=== PATIENT | female | born 1975 | race Caucasian/White ===

== ENCOUNTER 2019-04-22 23:36 | Emergency (ER) | payer SELFPAY ==
[2019-04-22 23:43] VITALS: BP 182/98; PULSE 91; RESP 18; TEMP 37.1; O2SAT 99
--- NOTE | 2019-04-22 23:43 | XR_ITS ---
WS: [id number] PORTABLE CHEST HISTORY: Chest Pain COMPARISON: 09/03/2018 Subsegmental opacification in the RIGHT lower lung field. Otherwise lungs are clear. No pleural effus ion or pneumothorax. Cardiac size: Normal. Mediastinum/Aorta: Normal mediastinum. No osseous abnormality seen. XR/XR chest 1V portable [id number] IMPRESSION: RIGHT lower lobe focal atelectasis versus pneumonitis.
--- NOTE | 2019-04-22 23:43 | ECG_ITS ---
Measurements Intervals [place] Rate: 101 P: 48 [place]: 133 QRS: -17 QRSD: 90 T: 29 QT: 344 QTc: 447 SINUS TACHYCARDIA VOLTAGE CRITERIA FOR LVH [MEETS CRITERIA IN ONE OF: R(aVL), S(V1), R(V5), R(V5 (V5/V6)+S(V1)] NONSPECIFIC ST & T-WAVE ABNORMALITY Compared to ECG 07/05/2018 19:11:38 T-wave abnormality now present Sinus rhythm no longer present Myocardial infarct finding no longer present Electronically Signed On 04-23-2019 22:01:32 CHILD AND ADOLESCENT PSYCHOLOGIST by Rani Monique M.D. [id number] f
[2019-04-22 23:49] VITALS: PULSE 97; RESP 18; O2SAT 98
--- NOTE | 2019-04-23 00:25 | ED_ITS ---
HPI - Chest Pain General: Chief Complaint: Chest Pain Stated Complaint: Chest pain Time Seen by Provider: 04/23/19 00:07 Source: patient Mode of arrival: ambulatory Limitations: no limitations History of Present Illness: HPI narrative: Patient reports for the last 2 to 3 days she has had a cough and some chest discomfort. Patient reports that this evening around 830 though she started having more increasing chest discomfort and radiation down her left arm. Patient came in then for further evaluation. Patient denies any previous heart history. Patient does have a history of blood pressure problems. Patient also has a history of anxiety and depression. Review of Systems General: Reports: 10 or more systems reviewed and unremarkable except in HPI and below Card: Reports: chest pain Resp: Reports: non-productive cough PFSH ED PFSH: Statuses (acute, chronic, etc) shown below reflect problem list status as previously entered and may not be historically accurate Medical History (Updated 04/23/19 @ 02:29 by NOA Guadalupe) Chronic post-traumatic stress disorder (Acute) of child (Acute) Generalized anxiety disorder (Acute) Major depressive disorder, recurrent episode, in partial remission with anxious distress (Acute) Weight gain due to medication (Acute) Physical Exam Const: COMMON NORMALS: no apparent distress and oriented x3 GENERAL APPEARANCE: cooperative HENMT: COMMON NORMALS: normocephalic, external ears normal, EAC's normal, TM's normal bilaterally and external nose normal HEAD & SCALP: normal to inspection and normocephalic FACE & SINUS: normal facial exam NOSE: external nose normal GENERAL EAR: hearing not grossly impaired EXTERNAL EAR: Yes external ears normal EXTERNAL AUDITORY CANAL: EAC's normal TYMPANIC MEMBRANE: TM's normal bilaterally MOUTH: oral and palatal mucosa normal THROAT: posterior oropharynx normal Eye: COMMON NORMALS: PERRL and EOMs intact bilaterally PUPIL: Yes PERRL Neck/C-Spine: COMMON NORMALS: full ROM and no lymphadenopathy Lymph: LYMPHATIC: no lymphedema noted Chest: COMMONS NORMALS: inspection of chest normal and palpation of chest n ormal Resp: COMMON NORMALS: normal respiratory effort and clear to auscultation bilaterally AUSCULTATION: clear to auscultation bilaterally Cardio: COMMON NORMALS: regular rate and regular rhythm RATE: regular rate RHYTHM: regular rhythm GI: COMMON NORMALS: normal to inspection, nondistended, normoactive bowel sounds and non-tender : COMMON NORMALS: Yes no CVA tenderness BLADDER/KIDNEY EXAM: Yes no CVA tenderness Back/Pelvis: COMMON NORMALS: no CVA tenderness and thoracic and lumbar spine normal to inspection Extremity: COMMON NORMALS: normal to inspection GENERAL: No edema Neuro: COMMON NORMALS: oriented x3, moves all extremities and no focal motor deficits Psych: COMMON NORMALS: mental status grossly normal and cooperative Skin: COMMON NORMALS: no rashes or lesions noted GENERAL SKIN EXAM: no rashes or lesions noted Course ED course: 1250, patient resting well, request medication for headache and nausea. wjw 0102, patient reports improvement in pain, continues to have some mild chest pressure and headache. first labs show no significant abnormality. wjw Vital Signs: Vital signs: Vital Signs Temperature 98.8 F 04/22/19 23:43 Pulse Rate 108 H 04/23/19 02:15 Respiratory Rate 18 04/23/19 02:23 Blood Pressure 183/114 04/23/19 02:15 Pulse Oximetry 95 04/23/19 02:15 MDM - Chest Pain MDM Narrative: Medical decision making narrative: Patient comes in today for complaints of chest discomfort radiating into her left arm. On exam patient appears well. Respirations are even lungs are clear to auscultation. Skin is warm and dry color is pink. Abdomen soft nontender. Differential diagnosis includes ACS, angina stable, pneumonia, uncontrolled hypertension, anxiety. Troponin was negative at the 2-hour annie. Chest x-ray was normal. Laboratory values otherwise were normal. Patient blood pressure was elevated with some LVH noted on the EKG. Reviewed with patient suspect that poor control or uncontrolled hypertension is leading to patient's chest discomfort. Will start patient on clonidine 0.1 mg twice a day. Patient will follow-up with primary care in 2 days for recheck. Patient reports understanding agreed to plan and need for follow-up. Lab Data: Labs: Lab Results 04/22/19 04/22/19 04/22/19 Range/Units 00:10 00:10 00:10 WBC 10.0 (4.0-10.0) 10^3/ uL RBC 4.67 (4.1-5.3) 10^6/u L Hgb 13.4 (11.5-15.3) g/dL Hct 42.4 (37.0-47.0) % MCV 90.8 (81-99) fL MCH 28.7 (28.0-34.0) pg MCHC 31.6 (30.0-36.0) g/dL RDW 14.3 (12.1-15.1) % Plt Count 255 (130-400) 10^3/c mm MPV 8.8 (7.4-10.4) fL Neut % (Auto) 68.1 % Lymph % (Auto) 13.6 % [place] % (Auto) 5.5 % Eos % (Auto) 11.6 % Baso % (Auto) 1.0 % Neut # (Auto) 6.8 (1.8-7.7) 10^3/u L Lymph # (Auto) 1.4 (0.8-4.8) 10^3/u L [place] # (Auto) 0.6 (0.2-0.9) 10^3/u L Eos # (Auto) 1.2 H (0.0-0.8) 10^3/u L Baso # (Auto) 0.1 (0.0-0.1) 10^3/u L Nucleated RBC % (a uto) 0 % Nucleated RBCs # 0.0 /100WBC PT 13.40 H (10.5-13.3) SECO NDS INR 0.99 (0.8-1.2) APTT 24.3 (23.9-36.7) SECO NDS Sodium 139 (136-145) mmol/L Potassium 3.6 (3.5-5.1) mmol/L Chloride 105 (98-107) mmol/L Carbon Dioxide 18 L (22-29) mmol/L Anion Gap 19.6 H (5-19) BUN 12 (6-20) mg/dL Creatinine 1.1 H (0.5-0.9) mg/dL GFR Calculation 53.7 L (90-130) mL/min Glucose 165 H (74-109) mg/dL Calcium 9.6 (8.6-10.0) mg/Dl Total Bilirubin 0.2 (0.15-1.2) mg/dL AST 15 (0-32) U/L ALT 16 (0-33) U/L Alkaline Phosphata se 93 (35-105) IU/L Troponin T Baselin e (0-10) ng/mL Troponin T 120 Min [place] (0-10) ng/mL Total Protein 6.2 L (6.6-8.7) g/dL Albumin 3.4 L (3.5-5.2) g/dL Globulin 2.8 (1.3-4.6) g/dL Urine Color (Yellow) Urine Appearance (CLEAR) Urine pH (5-7) Ur Specific Gravit y (1.005-1.030) Urine Protein (Negative) Urine Glucose (UA) (Normal) Urine Ketones (Negative) Urine Occult Blood (Negative) Urine Nitrate (Negative) Urine Bilirubin (NEGATIVE) Urine Urobilinogen (Negative) mg/dL Ur Leukocyte Stephanie ase (Negative) 04/22/19 04/23/19 04/23/19 Range/Units 00:10 00:34 01:45 WBC (4.0-10.0) 10^3/ uL RBC (4.1-5.3) 10^6/u L Hgb (11.5-15.3) g/dL Hct (37.0-47.0) % MCV (81-99) fL MCH (28.0-34.0) pg MCHC (30.0-36.0) g/dL RDW (12.1-15.1) % Plt Count (130-400) 10^3/c mm MPV (7.4-10.4) fL Neut % (Auto) % Lymph % (Auto) % [place] % (Auto) % Eos % (Auto) % Baso % (Auto) % Neut # (Auto) (1.8-7.7) 10^3/u L Lymph # (Auto) (0.8-4.8) 10^3/u L [place] # (Auto) (0.2-0.9) 10^3/u L Eos # (Auto) (0.0-0.8) 10^3/u L Baso # (Auto) (0.0-0.1) 10^3/u L Nucleated RBC % (a uto) % Nucleated RBCs # /100WBC PT (10.5-13.3) SECO NDS INR (0.8-1.2) APTT (23.9-36.7) SECO NDS Sodium (136-145) mmol/L Potassium (3.5-5.1) mmol/L Chloride (98-107) mmol/L Carbon Dioxide (22-29) mmol/L Anion Gap (5-19) BUN (6-20) mg/dL Creatinine (0.5-0.9) mg/dL GFR Calculation (90-130) mL/min Glucose (74-109) mg/dL Calcium (8.6-10.0) mg/Dl Total Bilirubin (0.15-1.2) mg/dL AST (0-32) U/L ALT (0-33) U/L Alkaline Phosphata se (35-105) IU/L Troponin T Baselin e 7 (0-10) ng/mL Troponin T 120 Min [place] 9.99 (0-10) ng/mL Total Protein (6.6-8.7) g/dL Albumin (3.5-5.2) g/dL Globulin (1.3-4.6) g/dL Urine Color Yellow (Yellow) Urine Appearance Clear (CLEAR) Urine pH 5 (5-7) Ur Specific Gravit y 1.015 (1.005-1.030) Urine Protein Neg (Negative) Urine Glucose (UA) Norm (Normal) Urine Ketones Negative (Negative) Urine Occult Blood Neg (Negative) Urine Nitrate Negative (Negative) Urine Bilirubin 1+ H (NEGATIVE) Urine Urobilinogen Norm (Negative) mg/dL Ur Leukocyte Stephanie ase Negative (Negative) Imaging Data^: CXR: My impression: no infiltrate noted EKG Data^: EKG 1: Attestation: I personally reviewed and interpreted this EKG as follows: (2357, Sinus tach rate of 101, regular, no ectopy, no ST elevation. wjw) EKG 2: Attestation: I personally reviewed and interpreted this EKG as follows: (0218, sinus tach, rate 106, no ectopy, no ST elevation, no significant change from prior EKG 2 hours ago) Discharge Plan Discharge Patient Disposition: Home, Self-Care Clinical Impression: Atypical chest pain, Hypertension, uncontrolled Condition: Stable Prescriptions: New clonidine HCl 0.1 mg tablet 0.1 mg PO BID Qty: 20 RF: 0 No Action albuterol sulfate 90 mcg/actuation HFA aerosol inhaler 2 puff INHALATION Q6H PRNRF: 0 aspirin 325 mg tablet 325 mg PO DAILY RF: 0 gabapentin 300 mg capsule 300 mg PO BID RF: 0 fluticasone propion-salmeterol [Advair Diskus] 100-50 mcg/dose blister with device 1 puff INHALATION BID RF: 0 clonidine HCl 0.2 mg tablet 0.2 mg PO TID PRN (Reason: hypertension) RF: 0 topiramate [Topamax] 50 mg tablet 50 mg PO .bedtime Qty: 30 RF: 1 olanzapine [Zyprexa] 5 mg tablet 5 mg PO .morning Qty: 30 RF: 4 citalopram [Celexa] 20 mg tablet 20 mg PO .morning Qty: 30 RF: 4 lorazepam 1 mg tablet 1 mg PO TID PRN (Reason: anxiety) Qty: 90 RF: 4 zolpidem [Ambien] 10 mg tablet 10 mg PO .QHS Qty: 30 RF: 4 Discharge Orders: Discharge Order (Routine); Ordered 04/23/19 Ordered By: Ollie George Referrals: Ej Salinas FNP [Primary Care Provider] - Discharge Diet: Usual diet Discharge Activity: Resume usual activity Patient Instructions: Hypertension (ED) Activity Restrictions/Additional Instructions: Activity as tolerated Health diet and exercise Follow-up with primary care in three days Return to ER for worsening chest pain or new concerns Stand Alone Forms: Work/School Release 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 of Care Code ED Loss Prevention Agent for Kimberly Gilman Exam Problem Focused
[2019-04-23 00:37] LABS: INR 0.99 (0.8-1.2); Partial Thromboplastin Time 24.3 SECONDS (23.9-36.7)
[2019-04-23 00:43] LABS: Basophils # 0.1 10^3/uL (0.0-0.1); Eosinophils # 1.2 10^3/uL (0.0-0.8); Eosinophils % 11.6 %; Hematocrit 42.4 % (37.0-47.0); Hemoglobin 13.4 g/dL (11.5-15.3); Lymphocytes # 1.4 10^3/uL (0.8-4.8); Lymphocytes % 13.6 %; Mean Corpuscular HGB Conc 31.6 g/dL (30.0-36.0); Mean Corpuscular Hemoglobin 28.7 pg (28.0-34.0); Mean Corpuscular Volume 90.8 fL (81-99); Mean Platelet Volume 8.8 fL (7.4-10.4); Monocytes # 0.6 10^3/uL (0.2-0.9); Monocytes % 5.5 %; Neutrophils # 6.8 10^3/uL (1.8-7.7); Neutrophils % 68.1 %; Nucleated Red Blood Cells % 0 %; Platelet Count 255 10^3/cmm (130-400); Red Blood Count 4.67 10^6/uL (4.1-5.3); Red Cell Distribution Width 14.3 % (12.1-15.1)
[2019-04-23 00:48] LABS: Alanine Aminotransferase 16 U/L (0-33); Albumin Level 3.4 g/dL (3.5-5.2); Alkaline Phosphatase 93 IU/L (35-105); Anion Gap 19.6 (5-19); Aspartate Amino Transferase 15 U/L (0-32); Blood Urea Nitrogen 12 mg/dL (6-20); Calcium 9.6 mg/Dl (8.6-10.0); Carbon Dioxide 18 mmol/L (22-29); Chloride 105 mmol/L (98-107); Globulin 2.8 g/dL (1.3-4.6); Glomerular Filtration Rate 53.7 mL/min (90-130); Glucose 165 mg/dL (74-109); Potassium 3.6 mmol/L (3.5-5.1); Sodium 139 mmol/L (136-145); Total Bilirubin 0.2 mg/dL (0.15-1.2); Total Protein 6.2 g/dL (6.6-8.7); Troponin(5th) Baseline 7 ng/mL (0-10)
[2019-04-23] MEDS: nitroglycerin 1 gm/inch oint Pkt 1 INCH TOPICAL (00:55)
[2019-04-23] MEDS: diphenhydrAMINE 50 mg/mL SDV 1mL 25 MG IVP (01:19)
[2019-04-23 01:25] LABS: Add Urine Microscopic? NO; Bilirubin Urine 1+ (NEGATIVE); Blood Urine Neg (Negative); Glucose Urine UA Norm (Normal); Ketones Urine Negative (Negative); Leukocyte Esterase Urine Negative (Negative); Nitrate Urine Negative (Negative); Protein Urine Neg (Negative); Specific Gravity, Urine 1.015 (1.005-1.030); Urine Appearance Clear (CLEAR); Urine Color Yellow (Yellow); Urobilinogen Urine Norm (Negative); pH Urine 5 (5-7)
[2019-04-23 01:26] VITALS: BP 179/91; PULSE 89; RESP 16; O2SAT 95
[2019-04-23 01:30] VITALS: BP 143/88; PULSE 91; RESP 16; O2SAT 93
[2019-04-23] MEDS: promethazine 25 mg/mL SDV 1 mL IM (01:35)
[2019-04-23] MEDS: ketorolac 30 mg/mL INJ 15 MG IVP (01:37)
--- NOTE | 2019-04-23 01:43 | ECG_ITS ---
Measurements Intervals [place] Rate: 106 P: 47 [place]: 141 QRS: -21 QRSD: 82 T: 23 QT: 335 QTc: 446 SINUS TACHYCARDIA BORDERLINE LEFT AXIS DEVIATION [QRS AXIS < -20] VOLTAGE CRITERIA FOR LVH [MEETS CRITERIA IN ONE OF: R(aVL), S(V1), R(V5), R(V (V5/V6)+S(V1)] Compared to ECG 07/05/2018 19:11:38 Sinus rhythm no longer present Myocardial infarct finding no longer present Electronically Signed On 04-23-2019 22:07:34 RN COMPLEX CARE by Rani Monique M.D. [id number] paz
[2019-04-23 02:15] VITALS: BP 183/114; PULSE 108; RESP 16; O2SAT 95
[2019-04-23 02:17] LABS: Troponin 5 2HR 9.99 ng/mL (0-10)
[2019-04-23 02:23] VITALS: RESP 18
[2019-04-23] MEDS: morphine 4 mg/mL SDV 1 mL IVP (02:23)
[2019-04-23 02:34] VITALS: BP 160/100
[2019-04-23] MEDS: cloNIDine 0.1 mg Tablet PO (02:34)
[2019-04-23 02:46] VITALS: BP 174/110; PULSE 103; RESP 17; O2SAT 96
== END 2019-04-23 02:49 | disposition home or self-care (01) ==
PROVIDERS: Emergency Medicine; Emergency Provider Nurse Practitioner Family; PCP Nurse Practitioner Family
DX: R07.89 Other chest pain (principal); I10 Essential (primary) hypertension; Z79.82 Long term (current) use of aspirin
CPT/HCPCS: 36415; 71045; 80053; 81003; 84484; 85025; 85610; 85730; 93005; 96372; 96374; 99282; J1200; J1885; J2270; J2550

== ENCOUNTER 2019-04-24 12:48 | Emergency (ER) | payer SELFPAY ==
[2019-04-24 12:54] VITALS: BP 159/105; PULSE 113; RESP 26; TEMP 36.8; O2SAT 96; BMI 34.3
--- NOTE | 2019-04-24 13:38 | ECG_ITS ---
Measurements Intervals [place] Rate: 123 P: 46 UT: 127 QRS: -10 QRSD: 86 T: 50 QT: 310 QTc: 445 SINUS TACHYCARDIA LEFT VENTRICULAR HYPERTROPHY AND ST-T CHANGE [VOLTAGE CRITERIA PLUS ST/T AB ABNORMALITY] Possible left atrial enlargement Compared to ECG 04/23/2019 02:18:50 ST (T wave) deviation now present Baseline artifact, need to repeat the study Electronically Signed On 04-24-2019 20:27:42 MILITARY SCIENCE TEACHER by Rani Monique M.D. [id number] f
--- NOTE | 2019-04-24 13:38 | XRR_ITS ---
PROCEDURE INFORMATION: Exam: XR Chest, 1 View Exam date and time: 04/24/2019 2:19 PM Age: 43 years old Clinical indication: Chest pain; Type not specified TECHNIQUE: Imaging protocol: XR of the chest Views: 1 view. COMPARISON: CR XR chest 1V portable [id number] 04/22/2019 11:51 PM FINDINGS: Lungs: Unremarkable. No consolidation. Pleural space: Unremarkable. No pleural effusion. No pneumothorax. Heart/Mediastinum: Unremarkable. No cardiomegaly. Bones/joints: Unremarkable. XR/XR chest 1V portable [id number] IMPRESSION: No acute findings.
[2019-04-24 14:08] LABS: Basophils # 0.1 10^3/uL (0.0-0.1); Basophils % 0.8 %; Eosinophils # 1.1 10^3/uL (0.0-0.8); Eosinophils % 12.3 %; Hematocrit 43.4 % (37.0-47.0); Hemoglobin 13.6 g/dL (11.5-15.3); Lymphocytes # 1.9 10^3/uL (0.8-4.8); Lymphocytes % 20.4 %; Mean Corpuscular HGB Conc 31.3 g/dL (30.0-36.0); Mean Corpuscular Hemoglobin 29.5 pg (28.0-34.0); Mean Corpuscular Volume 94.1 fL (81-99); Mean Platelet Volume 8.7 fL (7.4-10.4); Monocytes # 0.5 10^3/uL (0.2-0.9); Monocytes % 4.9 %; Neutrophils # 5.6 10^3/uL (1.8-7.7); Neutrophils % 61.4 %; Nucleated Red Blood Cells % 0 %; Platelet Count 299 10^3/cmm (130-400); Red Blood Count 4.61 10^6/uL (4.1-5.3); Red Cell Distribution Width 14.6 % (12.1-15.1); White Blood Count 9.1 10^3/uL (4.0-10.0)
[2019-04-24 14:39] LABS: Troponin(5th) Baseline 8 ng/mL (0-10)
[2019-04-24 15:04] LABS: INR 0.97 (0.8-1.2)
[2019-04-24 15:05] LABS: Alanine Aminotransferase 18 U/L (0-33); Albumin Level 3.3 g/dL (3.5-5.2); Alkaline Phosphatase 95 IU/L (35-105); Anion Gap 20.8 (5-19); Aspartate Amino Transferase 19 U/L (0-32); Blood Urea Nitrogen 16 mg/dL (6-20); Calcium 9.2 mg/Dl (8.6-10.0); Carbon Dioxide 16 mmol/L (22-29); Chloride 105 mmol/L (98-107); Globulin 2.1 g/dL (1.3-4.6); Glomerular Filtration Rate 53.7 mL/min (90-130); Glucose 125 mg/dL (74-109); Partial Thromboplastin Time 25.7 SECONDS (23.9-36.7); Potassium 3.8 mmol/L (3.5-5.1); Sodium 138 mmol/L (136-145); Total Bilirubin 0.2 mg/dL (0.15-1.2); Total Protein 5.4 g/dL (6.6-8.7)
--- NOTE | 2019-04-24 15:38 | ECG_ITS ---
Measurements Intervals [place] Rate: 77 P: 3 [place]: 135 QRS: -15 QRSD: 93 T: 6 QT: 359 QTc: 408 SINUS RHYTHM VOLTAGE CRITERIA FOR LVH [MEETS CRITERIA IN ONE OF: R(aVL), S(V1), R(V5), R (V5/V6)+S(V1)] Compared to ECG 04/23/2019 02:18:50 Sinus tachycardia no longer present Electronically Signed On 04-24-2019 20:35:59 FISHING GEAR MECHANIC by Rani Monique M.D. [id number]
[2019-04-24 16:05] LABS: Troponin 5 2HR 8.18 ng/mL (0-10); Troponin 5 2HR Delta 0.18 ABS# (0-10)
--- NOTE | 2019-04-24 16:41 | ED_ITS ---
HPI - Chest Pain General: Chief Complaint: Chest Pain Stated Complaint: cp Time Seen by Provider: 04/24/19 16:41 History of Present Illness: HPI narrative: 43-year-old female presents emergency room with complaints of chest pain left at times it seems to radiate into the back and not radiate to the neck or the arm no associated diaphoresis or shortness of breath. She has had it for the last couple of days. [place] fever sweats or chills no productive cough he had previously been treated for reflux disease was not taking any medications currently MD complaint: chest pain Onset (ago): day(s) (2 days) Timing of current episode: episodic Prior episodes: Yes Onset: during rest and during exertion Pain location: substernal and left chest Quality: aching Associated symptoms: Deny abdominal pain, dyspnea, fever(s), nausea or vomiting Review of Systems Const: Denies: fever, chills, body aches, change in appetite, fatigue or malaise ENMT: Denies: throat pain, ear pain, nasal discharge or nasal congestion Card: Denies: chest pain, edema, shortness of breath on exertion or shortness of breath when lying down Resp: Denies: shortness of breath, productive cough or non-productive cough GI: Denies: abdominal pain, nausea, vomiting, vomiting blood, coffee grounds in vomit, diarrhea, constipation, bloating, blood in stool or black tarry stool : Denies: flank pain, difficulty urinating, painful urination, urinary frequency or urinary urgency Skin/Breast: Denies: rash or itching PFSH ED PFSH: Statuses (acute, chronic, etc) shown below reflect problem list status as previously entered and may not be historically accurate Medical History Chronic post-traumatic stress disorder (Acute) of child (Acute) Generalized anxiety disorder (Acute) Major depressive disorder, recurrent episode, in partial remission with anxious distress (Acute) Weight gain due to medication (Acute) Physical Exam Const: COMMON NORMALS: no apparent distress GENERAL APPEARANCE: cooperative and comfortable ORIENTATION/CONSCIOUSNESS: Yes awake, Yes oriented to person, Yes oriented to place and Yes oriented to time HENMT: COMMON NORMALS: normocephalic, head/scalp atraumatic, hearing grossly normal bilaterally, external ears normal, EAC's normal, TM's normal bilaterally, nasal mucous membranes and turbinates normal, moist oral mucous membranes and oropharynx normal HEAD & SCALP: normocephalic and atraumatic NOSE: nasal mucous membranes and turbinates normal EXTERNAL EAR: Yes external ears normal EXTERNAL AUDITORY CANAL: EAC's normal TYMPANIC MEMBRANE: TM's normal bilaterally Eye: COMMON NORMALS: PERRL, EOMs intact bilaterally, conjunctivae normal and no scleral icterus CONJUNCTIVA: Yes conjunctivae normal PUPIL: Yes PERRL Neck/C-Spine: COMMON NORMALS: full ROM, no lymphadenopathy, supple and no JVD Lymph: LYMPHATIC: no lymphadenopathy noted and no lymphedema noted Resp: COMMON NORMALS: normal respiratory effort, no retractions, no use of accessory muscles and clear to auscultation bilaterally AUSCULTATION: clear to auscultation bilaterally Cardio: COMMON NORMALS: no JVD, regular rate, regular rhythm and no murmurs RATE: regular rate RHYTHM: regular rhythm GI: COMMON NORMALS: soft to palpation and no hepatosplenomegaly AUSCULTATION: Yes normoactive bowel sounds PALPATION: Yes soft, No tender, No guarding and Yes no hepatosplenomegaly Extremity: COMMON NORMALS: normal to inspection, normal capillary refill, no clubbing, cyanosis or edema, no calf tenderness and no pedal edema Neuro: SENSORIUM/ORIENTATION: Yes oriented to person, Yes oriented to place and Yes oriented to time Skin: COMMON NORMALS: no rashes or lesions noted GENERAL SKIN EXAM: no rashes or lesions noted Course ED course: Patient has persistent chest pain for the last couple of days troponins negative slightly reproducible with palpation like a large component is GI. We will go ahead and restart her on some omeprazole return if has problems. Vital Signs: Vital signs: Vital Signs Temperature 98.3 F 04/24/19 12:54 Pulse Rate 78 04/24/19 18:02 Respiratory Rate 18 04/24/19 18:02 Blood Pressure 174/111 04/24/19 18:02 Pulse Oximetry 96 04/24/19 18:02 MDM - Chest Pain Lab Data: Labs: Lab Results 04/24/19 04/24/19 04/24/19 Range/Units 13:50 13:50 13:50 WBC 9.1 (4.0-10.0) 10^3/ uL RBC 4.61 (4.1-5.3) 10^6/u L Hgb 13.6 (11.5-15.3) g/dL Hct 43.4 (37.0-47.0) % MCV 94.1 (81-99) fL MCH 29.5 (28.0-34.0) pg MCHC 31.3 (30.0-36.0) g/dL RDW 14.6 (12.1-15.1) % Plt Count 299 (130-400) 10^3/c mm MPV 8.7 (7.4-10.4) fL Neut % (Auto) 61.4 % Lymph % (Auto) 20.4 % [place] % (Auto) 4.9 % Eos % (Auto) 12.3 % Baso % (Auto) 0.8 % Neut # (Auto) 5.6 (1.8-7.7) 10^3/u L Lymph # (Auto) 1.9 (0.8-4.8) 10^3/u L [place] # (Auto) 0.5 (0.2-0.9) 10^3/u L Eos # (Auto) 1.1 H (0.0-0.8) 10^3/u L Baso # (Auto) 0.1 (0.0-0.1) 10^3/u L Nucleated RBC % (a uto) 0 % Nucleated RBCs # 0.0 /100WBC PT 13.20 (10.5-13.3) SECO NDS INR 0.97 (0.8-1.2) APTT 25.7 (23.9-36.7) SECO NDS Sodium 138 (136-145) mmol/L Potassium 3.8 (3.5-5.1) mmol/L Chloride 105 (98-107) mmol/L Carbon Dioxide 16 L (22-29) mmol/L Anion Gap 20.8 H (5-19) BUN 16 (6-20) mg/dL Creatinine 1.1 H (0.5-0.9) mg/dL GFR Calculation 53.7 L (90-130) mL/min Glucose 125 H (74-109) mg/dL Calcium 9.2 (8.6-10.0) mg/Dl Total Bilirubin 0.2 (0.15-1.2) mg/dL AST 19 (0-32) U/L ALT 18 (0-33) U/L Alkaline Phosphata se 95 (35-105) IU/L Troponin T Baselin e (0-10) ng/mL Troponin T 120 Min [place] (0-10) ng/mL Delta Troponin T (0-10) ABS# Total Protein 5.4 L (6.6-8.7) g/dL Albumin 3.3 L (3.5-5.2) g/dL Globulin 2.1 (1.3-4.6) g/dL 04/24/19 04/24/19 Range/Units 13:50 15:40 WBC (4.0-10.0) 10^3/ uL RBC (4.1-5.3) 10^6/u L Hgb (11.5-15.3) g/dL Hct (37.0-47.0) % MCV (81-99) fL MCH (28.0-34.0) pg MCHC (30.0-36.0) g/dL RDW (12.1-15.1) % Plt Count (130-400) 10^3/c mm MPV (7.4-10.4) fL Neut % (Auto) % Lymph % (Auto) % [place] % (Auto) % Eos % (Auto) % Baso % (Auto) % Neut # (Auto) (1.8-7.7) 10^3/u L Lymph # (Auto) (0.8-4.8) 10^3/u L [place] # (Auto) (0.2-0.9) 10^3/u L Eos # (Auto) (0.0-0.8) 10^3/u L Baso # (Auto) (0.0-0.1) 10^3/u L Nucleated RBC % (a uto) % Nucleated RBCs # /100WBC PT (10.5-13.3) SECO NDS INR (0.8-1.2) APTT (23.9-36.7) SECO NDS Sodium (136-145) mmol/L Potassium (3.5-5.1) mmol/L Chloride (98-107) mmol/L Carbon Dioxide (22-29) mmol/L Anion Gap (5-19) BUN (6-20) mg/dL Creatinine (0.5-0.9) mg/dL GFR Calculation (90-130) mL/min Glucose (74-109) mg/dL Calcium (8.6-10.0) mg/Dl Total Bilirubin (0.15-1.2) mg/dL AST (0-32) U/L ALT (0-33) U/L Alkaline Phosphata se (35-105) IU/L Troponin T Baselin e 8 (0-10) ng/mL Troponin T 120 Min [place] 8.18 (0-10) ng/mL Delta Troponin T 0.18 (0-10) ABS# Total Protein (6.6-8.7) g/dL Albumin (3.5-5.2) g/dL Globulin (1.3-4.6) g/dL Discharge Plan Discharge Patient Disposition: Home, Self-Care Clinical Impression: Chest pain due to gastrointestinal reflux disease, Atypical chest pain Condition: Stable Prescriptions: New omeprazole 20 mg capsule,delayed release(DR/EC) 20 mg PO DAILY 28 Days Qty: 28 RF: 0 No Action albuterol sulfate 90 mcg/actuation HFA aerosol inhaler 2 puff INHALATION Q6H PRNRF: 0 aspirin 325 mg tablet 325 mg PO DAILY RF: 0 gabapentin 300 mg capsule 300 mg PO BID RF: 0 fluticasone propion-salmeterol [Advair Diskus] 100-50 mcg/dose blister with device 1 puff INHALATION BID RF: 0 clonidine HCl 0.2 mg tablet 0.2 mg PO TID PRN (Reason: hypertension) RF: 0 topiramate [Topamax] 50 mg tablet 50 mg PO .bedtime Qty: 30 RF: 1 olanzapine [Zyprexa] 5 mg tablet 5 mg PO .morning Qty: 30 RF: 4 citalopram [Celexa] 20 mg tablet 20 mg PO .morning Qty: 30 RF: 4 lorazepam 1 mg tablet 1 mg PO TID PRN (Reason: anxiety) Qty: 90 RF: 4 zolpidem [Ambien] 10 mg tablet 10 mg PO .QHS Qty: 30 RF: 4 clonidine HCl 0.1 mg tablet 0.1 mg PO BID Qty: 20 RF: 0 Discharge Orders: Discharge Order (Routine); Ordered 04/24/19 Ordered By: Constantin Coley Referrals: Ej Salinas FNP [Primary Care Provider] - Discharge Diet: As Directed Discharge Activity: Increase activity as tolerated Activity Restrictions/Additional Instructions: Low up with your primary care doctor return if you have further problems. Discharge Date/Time: 04/24/19 18:03 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 of Care Code ED Premium Cancellation Clerk for Kimberly Gilman
--- NOTE | 2019-04-24 16:50 | PC.NURSE ---
Pt states she was seen for this 2 days ago and it just isn't getting any better
[2019-04-24] MEDS: haloperidol inj 5 mg/mL INJ 1 mL 2 MG IM (17:57)
[2019-04-24 18:02] VITALS: BP 174/111; PULSE 78; RESP 18; O2SAT 96
--- NOTE | 2019-05-03 01:28 | P.HP_ITS ---
Providers/Chief Complaint Primary Care Provider: NOA Hoyt Chief Complaint: cp History of Present Illness Therese Schaefer is a 43 year old female who does not carry any diagnosis of coronary disease, [place], diabetes came in with chief complaint of chest pain. Patient is stating that for last couple of weeks she has been having recurrent chest pains, on last admission it was deemed secondary to high blood pressure, she has been on clonidine for her blood pressure, her blood pressure normally runs at 180s at home. She presented today to the emergency department because she was having substernal chest pain which described as pressure-like sensation radiating towards her left arm and neck, she had nausea and vomiting. She vo mited 3 times which associated some shortness of breath at rest. Her symptoms resolved after taking sublingual nitroglycerin. Patient is very anxious she thinks something is wrong with her heart which needs to be evaluated. Patient was seen in emergency department few days back when she was discharged home with some GI cocktail. Diagnostics in ER showed heart score of 3, no ischemic EKG changes, troponin mildly elevated, Decision was made to do a treadmill stress test with nuclear scan to rule out cardiac etiology At the time of my evaluation her systolic blood pressure was 177/70, she was chest pain-free, not in any distress Review of Systems Const: Denies: fever or chills Eyes: Denies: change in vision ENMT: Denies: throat pain Card: Reports: chest pain; Denies: palpitations, irregular heart rhythm or edema Resp: Reports: shortness of breath; Denies: productive cough or non-productive cough GI: Denies: abdominal pain : Denies: flank pain Musc: Denies: neck pain Skin/Breast: Denies: rash Neuro: Denies: headache Psych: Reports: anxiety Endo: Denies: excessive urination Gomez/Lymph: Denies: easy bruising All/Imm: Denies: hives Medications/Allergies Allergies Allergy/AdvReac Type Severity Reaction Status Date / Time baclofen Allergy Unknown Unknown Verified 04/16/19 08:04 codeine Allergy Unknown rash Verified 04/16/19 08:02 ondansetron [From Zofran] Allergy Unknown ALGY-Anaphy Verified 04/16/19 08:04 laxis prochlorperazine Allergy Unknown Unknown Verified 04/16/19 08:04 [From Compazine] metoclopramide [From Reglan] Allergy ALGY-Hives Verified 04/24/19 13:01 PFSH Acute PFSH: Statuses (acute, chronic, etc) shown below reflect problem list status as previously entered and may not be historically accurate Medical History (Updated 05/03/19 @ 02:02 by Mitul García MD) Chronic post-traumatic stress disorder (Acute) of child (Acute) Generalized anxiety disorder (Acute) Hypertension (Acute) Major depressive disorder, recurrent episode, in partial remission with anxious distress (Acute) Peptic ulcer disease (Acute) Weight gain due to medication (Acute) Surgical History (Updated 05/03/19 @ 02:00 by Mitul García MD) H/O: hysterectomy (Acute) History of partial gastrectomy (Acute) Hx of cholecystectomy (Acute) S/P appendectomy (Acute) Family History (Updated 05/03/19 @ 02:00 by Mitul García MD) Mother CAD (coronary artery disease) Other Hypertension Social History (Updated 05/03/19 @ 02:00 by Mitul García MD) Smoking and tobacco status: former smoker Alcohol intake: never Substance/Drug Use: never Household members: children Housing: House Vitals/I&O/Wt Last Vital Signs Temp 98.3 F 04/24/19 12:54 Pulse 78 04/24/19 18:02 Resp 18 04/24/19 18:02 BP 174/111 04/24/19 18:02 Pulse Ox 96 04/24/19 18:02 Physical Exam Narrative: EXAM NARRATIVE: Dehydrated appearance, appears older than stated age S1, S2 no active murmur heart failure or signs of edema Lungs are clear to auscultation Abdomen is soft nontender nondistended Neurologically nonfocal exam Appears anxious Skin does not show any sign ischemia gangrene or ulcer EOMI, PERRLA Back pain with limited range of motion Data : 04/24/19 13:50 04/24/19 13:50 A&P Assessment and plan (1) Chest pain: Status: Acute Qualifiers: Chest pain type: unspecified Qualified Code(s): R07.9 - Chest pain, unspecified Code(s): R07.9 - Chest pain, unspecified (2) Generalized anxiety disorder: Status: Acute Code(s): F41.1 - Generalized anxiety disorder (3) Chronic post-traumatic stress disorder: Status: Acute Code(s): F43.12 - Post-traumatic stress disorder, chronic (4) Acute renal failure superimposed on stage 2 chronic kidney disease: Status: Acute Code(s): N17.9 - Acute kidney failure, unspecified; N18.2 - Chronic kidney disease, stage 2 (mild) (5) Hypertensive urgency: Status: Acute Code(s): I16.0 - Hypertensive urgency Additional A&P Information Unstable angina with heart score of 3 She has typical chest pain features such as substernal, squeezing in nature, relieved with nitro We will do a treadmill stress test with nuclear study N.p.o. after midnight, Currently chest pain-free, troponin mildly high with negative delta troponin, EKG did not show any ischemic changes Hypertensive urgency: I will try to avoid use of clonidine and use hydralazine, amlodipine and metoprolol EKG showing signs of LVH We will check TSH Acute on chronic renal disease stage II I believe this is secondary to hypertensive urgency with dehydration Would avoid use of lisinopril for now PTSD generalized anxiety disorder: I would only decrease the dose of gabapentin because of APT otherwise resume her anxiolyticS DVT prophylaxis: Heparin Full code Attestations Medical Necessity Statement*: Anticipating discharge less than 48 hours, needs stress test for cardiac chest pain rule out Time Spent in Patient Care: 60 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 Marine Structural Designer for Kimberly Gilman Diagnoses Chest pain R07.9 Chest pain type: unspecified Generalized anxiety disorder F41.1 Chronic post-traumatic stress disorder F43.12 Acute renal failure superimposed on stage 2 chronic kidney disease N17.9; N18.2 Hypertensive urgency I16.0
== END 2019-04-24 18:03 | disposition home or self-care (01) ==
PROVIDERS: Emergency Provider Family Medicine; PCP Nurse Practitioner Family
DX: K21.9 Gastro-esophageal reflux disease without esophagitis (principal); R07.89 Other chest pain; Z79.82 Long term (current) use of aspirin
CPT/HCPCS: 12345; 36415; 71045; 80053; 84484; 85025; 85610; 85730; 93005; 96372; 99281; J1630

== ENCOUNTER 2019-05-02 21:12 | Observation (INO) | payer SELFPAY ==
[2019-05-02 21:16] VITALS: BP 189/124; PULSE 80; RESP 19; TEMP 36.6; O2SAT 97; BMI 34.3
[2019-05-02 21:19] VITALS: BP 172/96; PULSE 78; RESP 20; O2SAT 96
--- NOTE | 2019-05-02 21:19 | XR_ITS ---
WS: [id number] CHEST XRAY TECHNIQUE: Portable chest. CLINICAL INFORMATION: chest pain COMPARISON: April 24, 2019 FINDINGS: Surgical clips GE junction. Heart: Normal cardiac silhouette. Lungs: Lungs are clear. No consolidation or pleural effusion. Bones: Normal visualized bony structures. XR/XR chest 1V [id number] IMPRESSION: Normal chest
--- NOTE | 2019-05-02 21:24 | ED_ITS ---
Entered by Gretel Robles, acting as scribe for Matthew Lemus MD, MSM Documented by User: Matthew Lemus MD, MSM 05/05/19 23:22 HPI - Chest Pain General: Chief Complaint: Chest Pain Stated Complaint: CHEST PAINS Time Seen by Provider: 05/02/19 21:24 Source: patient and RN notes reviewed Mode of arrival: ambulatory Limitations: no limitations History of Present Illness: HPI narrative: 43 yo female presents to ED with complaints of chest pain. The patient states she has a lot of chest pain/pressure, nausea, vomiting, and dizziness. The patient states the pain radiates down her L arm. She said it began about 1 hour ago (2039). The patient states she has not taken a pain reliever. She said she takes medication for hypertension. MD complaint: chest pain and chest heaviness Pertinent past history: other (HTN) Onset (ago): hour(s) ( (2039)) Timing of current episode: episodic Prior episodes: No Onset: during rest Pain location: substernal Pain radiation: left arm Severity: moderate Quality: tightness and heaviness Relieving factors: nothing Exacerbating factors: nothing Associated symptoms: Reports nausea; Deny dyspnea, fever(s) or palpitations Treatment prior to arrival: none Risk Factors: Coronary artery disease risk factors: hypertension and family history of CAD before age 50 (maternal grandmother) Thoracic aortic dissection risk factors: none Review of Systems General: Reports: 10 or more systems reviewed and unremarkable except in HPI and below Const: Denies: fever, chills or body aches Eyes: Reports: blind spots; Denies: change in vision or blurry vision ENMT: Denies: throat pain, enlarged tonsils, painful swallowing, hoarseness, mouth pain or swelling of lips/tongue Card: Denies: palpitations, irregular heart rhythm, edema or swelling of feet/ankles Resp: Denies: shortness of breath, productive cough or non-productive cough GI: Reports: nausea : Denies: flank pain, difficulty urinating, painful urination, urinary frequency, urinary urgency or urinary hesitancy Musc: Reports: extremity pain (left shoulder), joint pain (left shoulder) and limited range of motion; Denies: neck pain, back pain or extremity swelling Skin/Breast: Denies: rash, itching or redness Neuro: Denies: headache, numbness in extremities or weakness in extremities Endo: Denies: excessive urination, excessive thirst or tired all the time PFSH ED PFSH: Statuses (acute, chronic, etc) shown below reflect problem list status as previously entered and may not be historically accurate Social History Smoking and tobacco status: former smoker Alcohol intake: never Household members: children Housing: House Physical Exam Const: COMMON NORMALS: no apparent distress, average body habitus, oriented x3, no limitations, healthy appearing, alert and well nourished HENMT: COMMON NORMALS: normocephalic, head/scalp atraumatic and moist oral mucous membranes HEAD & SCALP: normocephalic and atraumatic Eye: COMMON NORMALS: PERRL, EOMs intact bilaterally, conjunctivae normal and no scleral icterus CONJUNCTIVA: Yes conjunctivae normal PUPIL: Yes PERRL Neck/C-Spine: COMMON NORMALS: full ROM, supple, no meningeal signs, no JVD and no carotid bruits Chest: COMMONS NORMALS: inspection of chest normal and palpation of chest normal Resp: COMMON NORMALS: normal respiratory effort, no retractions, no use of accessory muscles, clear to auscultation bilaterally and percussion normal AUSCULTATION: clear to auscultation bilaterally PERCUSSION: percussion normal Cardio: COMMON NORMALS: no JVD, regular rate, regular rhythm, S1 normal heart sound, S2 normal heart sound, no gallops, no clicks, no murmurs, no rub and peripheral pulses 2+ throughout RATE: regular rate RHYTHM: regular rhythm HEART SOUNDS: S1 normal and S2 normal PERIPHERAL PULSES: pulses 2+ throughout GI: COMMON NORMALS: normal to inspection, nondistended, normoactive bowel sounds, soft to palpation, non-tender, no hepatosplenomegaly, no masses and no bruits PALPATION: Yes soft and Yes no hepatosplenomegaly : COMMON NORMALS: Yes no CVA tenderness BLADDER/KIDNEY EXAM: Yes no CVA tenderness Back/Pelvis: COMMON NORMALS: no CVA tenderness Extremity: COMMON NORMALS: normal to inspection, full ROM, normal capillary refill, no calf tenderness and no pedal edema Neuro: COMMON NORMALS: oriented x3 SENSORIUM/ORIENTATION: Yes alert MENINGEAL SIGNS: Yes no meningeal signs Skin: COMMON NORMALS: no rashes or lesions noted, no wounds, skin turgor normal, no jaundice, no petechiae and no mottling GENERAL SKIN EXAM: no rashes or lesions noted and turgor normal Course Vital Signs: Vital signs: Vital Signs Temperature 97.8 F 05/04/19 08:00 Pulse Rate 67 05/04/19 08:00 Respiratory Rate 18 05/04/19 08:00 Blood Pressure 123/81 05/04/19 08:00 Pulse Oximetry 98 05/04/19 08:00 MDM - Chest Pain Medical Records: Attestation: I reviewed the patient's medical records. Lab Data: Attestation: I reviewed the patient's lab results. Labs: Lab Results 05/02/19 05/02/19 05/02/19 Range/Units 21:25 21:25 21:25 WBC 10.3 H (4.0-10.0) 10^3/ uL RBC 4.28 (4.1-5.3) 10^6/u L Hgb 12.3 (11.5-15.3) g/dL Hct 39.8 (37.0-47.0) % MCV 93.0 (81-99) fL MCH 28.7 (28.0-34.0) pg MCHC 30.9 (30.0-36.0) g/dL RDW 15.3 H (12.1-15.1) % Plt Count 276 (130-400) 10^3/c mm MPV 8.7 (7.4-10.4) fL Neut % (Auto) 53.0 % Lymph % (Auto) 26.0 % [place] % (Auto) 6.6 % Eos % (Auto) 13.0 % Baso % (Auto) 1.2 % Neut # (Auto) 5.5 (1.8-7.7) 10^3/u L Lymph # (Auto) 2.7 (0.8-4.8) 10^3/u L [place] # (Auto) 0.7 (0.2-0.9) 10^3/u L Eos # (Auto) 1.3 H (0.0-0.8) 10^3/u L Baso # (Auto) 0.1 (0.0-0.1) 10^3/u L Nucleated RBC % (a uto) 0 % Nucleated RBCs # 0.0 /100WBC Sodium 143 (136-145) mmol/L Potassium 3.9 (3.5-5.1) mmol/L Chloride 110 H (98-107) mmol/L Carbon Dioxide 20 L (22-29) mmol/L Anion Gap 16.9 (5-19) BUN 12 (6-20) mg/dL Creatinine 1.2 H (0.5-0.9) mg/dL GFR Calculation 48.6 L (90-130) mL/min Glucose 109 (74-109) mg/dL Calcium 9.1 (8.5-10.5) mg/dL Total Bilirubin 0.2 (0.15-1.2) mg/dL AST 33 H (0-32) U/L ALT 22 (0-33) U/L Alkaline Phosphata se 96 (35-105) IU/L Troponin T Gen 5 n g/L Cancelled Troponin T Baselin e (0-10) ng/mL Troponin T 120 Min hoopa (0-10) ng/mL Delta Troponin T (0-10) ABS# Total Protein 5.6 L (6.6-8.7) g/dL Albumin 3.6 (3.5-5.2) g/dL Globulin 2.0 (1.3-4.6) g/dL 05/02/19 05/02/19 Range/Units 21:25 23:55 WBC (4.0-10.0) 10^3/ uL RBC (4.1-5.3) 10^6/u L Hgb (11.5-15.3) g/dL Hct (37.0-47.0) % MCV (81-99) fL MCH (28.0-34.0) pg MCHC (30.0-36.0) g/dL RDW (12.1-15.1) % Plt Count (130-400) 10^3/c mm MPV (7.4-10.4) fL Neut % (Auto) % Lymph % (Auto) % [place] % (Auto) % Eos % (Auto) % Baso % (Auto) % Neut # (Auto) (1.8-7.7) 10^3/u L Lymph # (Auto) (0.8-4.8) 10^3/u L [place] # (Auto) (0.2-0.9) 10^3/u L Eos # (Auto) (0.0-0.8) 10^3/u L Baso # (Auto) (0.0-0.1) 10^3/u L Nucleated RBC % (a uto) % Nucleated RBCs # /100WBC Sodium (136-145) mmol/L Potassium (3.5-5.1) mmol/L Chloride (98-107) mmol/L Carbon Dioxide (22-29) mmol/L Anion Gap (5-19) BUN (6-20) mg/dL Creatinine (0.5-0.9) mg/dL GFR Calculation (90-130) mL/min Glucose (74-109) mg/dL Calcium (8.5-10.5) mg/dL Total Bilirubin (0.15-1.2) mg/dL AST (0-32) U/L ALT (0-33) U/L Alkaline Phosphata se (35-105) IU/L Troponin T Gen 5 n g/L Troponin T Baselin e 15 H (0-10) ng/mL Troponin T 120 Min hoopa 14.18 H (0-10) ng/mL Delta Troponin T -0.82 L (0-10) ABS# Total Protein (6.6-8.7) g/dL Albumin (3.5-5.2) g/dL Globulin (1.3-4.6) g/dL EKG Data^: EKG 1: Attestation: I personally reviewed and interpreted this EKG as follows: EKG interpretation date: 05/02/19 EKG interpretation time: 21:21 Prior EKG tracings: not available for review Interpretation: Normal sinus rhythm. Heart rate 73. No ST changes. Normal axis. Discharge Plan Discharge Admit Provider: Mitul García Clinical Impression: Chest pain Qualifiers: Chest pain type: unspecified Qualified Code(s): R07.9 - Chest pain, unspecified Condition: Stable Discharge Orders: Discharge Order (Routine); Ordered 05/04/19 Ordered By: Gio Daniel Discharge Diet: Cardiac Discharge Activity: Resume usual activity Sign Out Sign Out Data: Patient Sign Out occurred on 05/02/19 at 23:32. Patient's care was discussed, and care was transferred from to Lia May. 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 of Care Code ED Grease Maker for Michaelag Fwd Exam Problem Focused Documented by User: Lia May 05/03/19 01:56 HPI - Chest Pain General: Chief Complaint: Chest Pain Stated Complaint: CHEST PAINS Time Seen by Provider: 05/02/19 21:24 PFSH ED PFSH: Statuses (acute, chronic, etc) shown below reflect problem list status as previously entered and may not be historically accurate Social History Smoking and tobacco status: former smoker Alcohol intake: never Household members: children Housing: House Course Vital Signs: Vital signs: Vital Signs Temperature 97.8 F 05/04/19 08:00 Pulse Rate 67 05/04/19 08:00 Respiratory Rate 18 05/04/19 08:00 Blood Pressure 123/81 05/04/19 08:00 Pulse Oximetry 98 05/04/19 08:00 MDM - Chest Pain MDM Narrative: Medical decision making narrative: 0100 -Case turned over to me at change of shift from Dr. Lemus. Please see his notes for his history, physical exam and medical decision-making notes. The patient has a heart score of 4. The patient was reviewed with Dr. García and he agrees for inpatient admission with rule out and stress testing. Lab Data: Labs: Lab Results 05/02/19 05/02/19 05/02/19 Range/Units 21:25 21:25 21:25 WBC 10.3 H (4.0-10.0) 10^3/ uL RBC 4.28 (4.1-5.3) 10^6/u L Hgb 12.3 (11.5-15.3) g/dL Hct 39.8 (37.0-47.0) % MCV 93.0 (81-99) fL MCH 28.7 (28.0-34.0) pg MCHC 30.9 (30.0-36.0) g/dL RDW 15.3 H (12.1-15.1) % Plt Count 276 (130-400) 10^3/c mm MPV 8.7 (7.4-10.4) fL Neut % (Auto) 53.0 % Lymph % (Auto) 26.0 % [place] % (Auto) 6.6 % Eos % (Auto) 13.0 % Baso % (Auto) 1.2 % Neut # (Auto) 5.5 (1.8-7.7) 10^3/u L Lymph # (Auto) 2.7 (0.8-4.8) 10^3/u L [place] # (Auto) 0.7 (0.2-0.9) 10^3/u L Eos # (Auto) 1.3 H (0.0-0.8) 10^3/u L Baso # (Auto) 0.1 (0.0-0.1) 10^3/u L Nucleated RBC % (a uto) 0 % Nucleated RBCs # 0.0 /100WBC Sodium 143 (136-145) mmol/L Potassium 3.9 (3.5-5.1) mmol/L Chloride 110 H (98-107) mmol/L Carbon Dioxide 20 L (22-29) mmol/L Anion Gap 16.9 (5-19) BUN 12 (6-20) mg/dL Creatinine 1.2 H (0.5-0.9) mg/dL GFR Calculation 48.6 L (90-130) mL/min Glucose 109 (74-109) mg/dL Calcium 9.1 (8.5-10.5) mg/dL Total Bilirubin 0.2 (0.15-1.2) mg/dL AST 33 H (0-32) U/L ALT 22 (0-33) U/L Alkaline Phosphata se 96 (35-105) IU/L Troponin T Gen 5 n g/L Cancelled Troponin T Baselin e (0-10) ng/mL Troponin T 120 Min hoopa (0-10) ng/mL Delta Troponin T (0-10) ABS# Total Protein 5.6 L (6.6-8.7) g/dL Albumin 3.6 (3.5-5.2) g/dL Globulin 2.0 (1.3-4.6) g/dL 05/02/19 05/02/19 Range/Units 21:25 23:55 WBC (4.0-10.0) 10^3/ uL RBC (4.1-5.3) 10^6/u L Hgb (11.5-15.3) g/dL Hct (37.0-47.0) % MCV (81-99) fL MCH (28.0-34.0) pg MCHC (30.0-36.0) g/dL RDW (12.1-15.1) % Plt Count (130-400) 10^3/c mm MPV (7.4-10.4) fL Neut % (Auto) % Lymph % (Auto) % [place] % (Auto) % Eos % (Auto) % Baso % (Auto) % Neut # (Auto) (1.8-7.7) 10^3/u L Lymph # (Auto) (0.8-4.8) 10^3/u L [place] # (Auto) (0.2-0.9) 10^3/u L Eos # (Auto) (0.0-0.8) 10^3/u L Baso # (Auto) (0.0-0.1) 10^3/u L Nucleated RBC % (a uto) % Nucleated RBCs # /100WBC Sodium (136-145) mmol/L Potassium (3.5-5.1) mmol/L Chloride (98-107) mmol/L Carbon Dioxide (22-29) mmol/L Anion Gap (5-19) BUN (6-20) mg/dL Creatinine (0.5-0.9) mg/dL GFR Calculation (90-130) mL/min Glucose (74-109) mg/dL Calcium (8.5-10.5) mg/dL Total Bilirubin (0.15-1.2) mg/dL AST (0-32) U/L ALT (0-33) U/L Alkaline Phosphata se (35-105) IU/L Troponin T Gen 5 n g/L Troponin T Baselin e 15 H (0-10) ng/mL Troponin T 120 Min hoopa 14.18 H (0-10) ng/mL Delta Troponin T -0.82 L (0-10) ABS# Total Protein (6.6-8.7) g/dL Albumin (3.5-5.2) g/dL Globulin (1.3-4.6) g/dL Imaging Data^: CXR: My impression: No acute cardiopulmonary findings. EKG Data^: EKG 1: Attestation: I personally reviewed and interpreted this EKG as follows: EKG interpretation date: 05/02/19 EKG interpretation time: 21:21 Interpretation: Normal sinus rhythm at 73 beats a minute, LVH, nonspecific ST and T wave changes, possible anteroseptal FL, no acute findings. Similar to previous. EKG 2: Attestation: I personally reviewed and interpreted this EKG as follows: EKG interpretation date: 05/03/19 EKG interpretation time: 00:40 Interpretation: Normal sinus rhythm at 68 beats a minute, LVH, left axis deviation, nonspecific ST-T wave changes. Unchanged from previous. Discharge Plan Discharge Admit Provider: Mitul García Clinical Impression: Chest pain Qualifiers: Chest pain type: unspecified Qualified Code(s): R07.9 - Chest pain, unspecified Condition: Stable Discharge Orders: Discharge Order (Routine); Ordered 05/04/19 Ordered By: Gio Daniel Discharge Diet: Cardiac Discharge Activity: Resume usual activity Sign Out Sign Out Data: Patient Sign Out occurred on 05/02/19 at 23:32. Patient's care was discussed, and care was transferred from to [facility]. 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 of Care Code ED Grease Maker for Chg Fwd Exam Problem Focused The documentation recorded by the Margaret douglas Valerie R, accurately reflects the service I personally performed and the decisions made by , Matthew Lemus MD, [facility] May 02, 2019 21:12
[2019-05-02 21:32] LABS: Basophils # 0.1 10^3/uL (0.0-0.1); Basophils % 1.2 %; Eosinophils # 1.3 10^3/uL (0.0-0.8); Hematocrit 39.8 % (37.0-47.0); Hemoglobin 12.3 g/dL (11.5-15.3); Lymphocytes # 2.7 10^3/uL (0.8-4.8); Mean Corpuscular HGB Conc 30.9 g/dL (30.0-36.0); Mean Corpuscular Hemoglobin 28.7 pg (28.0-34.0); Mean Platelet Volume 8.7 fL (7.4-10.4); Monocytes # 0.7 10^3/uL (0.2-0.9); Monocytes % 6.6 %; Neutrophils # 5.5 10^3/uL (1.8-7.7); Nucleated Red Blood Cells % 0 %; Platelet Count 276 10^3/cmm (130-400); Red Blood Count 4.28 10^6/uL (4.1-5.3); Red Cell Distribution Width 15.3 % (12.1-15.1); White Blood Count 10.3 10^3/uL (4.0-10.0)
--- NOTE | 2019-05-02 21:45 | ECG_ITS ---
Measurements Intervals [place] Rate: 73 P: 19 [place]: 128 QRS: -22 QRSD: 90 T: 31 QT: 366 QTc: 404 SINUS RHYTHM MODERATE VOLTAGE CRITERIA FOR LVH, CONSIDER NORMAL VARIANT [MEETS CRITERIA IN ONE OF: R(aVL), S(V1), R(V5), R(V5/V6)+S(V1)] POSSIBLE SEPTAL MYOCARDIAL INFARCTION [30 ms Q WAVE IN V1/V2], OF INDETERMINATE AG AGE Compared to ECG 04/24/2019 16:09:04 Myocardial infarct finding now present Electronically Signed On 05-03-2019 15:54:07 DEVELOPMENT AND HOUSING DIRECTOR by Porter Cooper M.D. [id number]
[2019-05-02 21:49] LABS: Alanine Aminotransferase 22 U/L (0-33); Albumin Level 3.6 g/dL (3.5-5.2); Alkaline Phosphatase 96 IU/L (35-105); Anion Gap 16.9 (5-19); Aspartate Amino Transferase 33 U/L (0-32); Blood Urea Nitrogen 12 mg/dL (6-20); Calcium 9.1 mg/dL (8.5-10.5); Carbon Dioxide 20 mmol/L (22-29); Chloride 110 mmol/L (98-107); Glomerular Filtration Rate 48.6 mL/min (90-130); Glucose 109 mg/dL (74-109); Potassium 3.9 mmol/L (3.5-5.1); Sodium 143 mmol/L (136-145); Total Bilirubin 0.2 mg/dL (0.15-1.2); Total Protein 5.6 g/dL (6.6-8.7)
[2019-05-02 21:55] LABS: Troponin(5th) Baseline 15 ng/mL (0-10)
[2019-05-02 22:36] VITALS: BP 124/74; PULSE 66; RESP 18; O2SAT 100
[2019-05-02] MEDS: nitroglycerin 0.4 mg sublingual Tablet SUBLINGUAL (22:39)
[2019-05-02] MEDS: aspirin 81 mg Chew Tablet 324 MG PO (22:40)
[2019-05-02] MEDS: promethazine 25 mg/mL SDV 1 mL IM (23:09)
[2019-05-03] VITALS (15 sets, daily range): BP systolic 125–186; BP diastolic 68–104; PULSE 55–76; RESP 14–20; TEMP 36.4–36.9; O2SAT 94–98
--- NOTE | 2019-05-03 | USCV_ITS ---
Therese Schaefer Age: 43 Gender: F : 1975 Exam Date: 05/03/2019 14:02 Ordering Phys: Mitul García MD Technologist: Jake Salazar [place] [facility] [place]ication: SOB CHEST PAIN BP: 180 / 100 HR: 56 Rhythm: Sinus Technical Quality: Good MEASUREMENTS (Male / Female) Normal Values 2D ECHO LV Diastolic Diameter PLAX 4.1 cm 4.2 - 5.9 / 3.9 - 5.3 cm LV Systolic Diameter PLAX 2.8 cm IVS Diastolic Thickness 1.0 cm 0.6 - 1.0 / 0.6 - 0.9 cm IVS Systolic Thickness 1.2 cm LVPW Diastolic Thickness 0.9 cm 0.6 - 1.0 / 0.6 - 0.9 cm LVPW Systolic Thickness 1.2 cm LVOT Diameter 2.0 cm LV Ejection Fraction 2D Teich 59.4 % LA Diameter 4.8 cm LA Width 3.1 cm LA Height 4.2 cm RA Width 3.1 cm RA Height 3.6 cm Aorta at Sinotubular Diameter 2.6 cm M-MODE LV Diastolic Diameter MM 5.5 cm 4.2 - 5.9 / 3.9 - 5.3 cm LV Systolic Diameter MM 3.8 cm LV Ejection Fraction MM Teich 58.9 % IVS Diastolic Thickness MM 1.1 cm 0.6 - 1.0 / 0.6 - 0.9 cm IVS Systolic Thickness MM 1.6 cm LVPW Diastolic Thickness MM 1.1 cm 0.6 - 1.0 / 0.6 - 0.9 cm LVPW Systolic Thickness MM 1.5 cm RV Diastolic Diameter MM 1.5 cm Aortic Annulus Diameter 4.0 cm LA Ao Ratio MM 1.2 MV E Point Septal Separation 0.9 cm DOPPLER AV Peak Velocity 164.0 cm/s LVOT Peak Velocity 119.0 cm/s AV Area Cont Eq vti 3.0 cm squared AV Area Cont Eq pk 2.3 cm squared MV Area PHT 5.0 cm squared Mitral E to A Ratio 0.8 MV E' Velocity 14.0 cm/s Mitral E to MV E' Ratio 9.6 Mitral E to LV E' Lateral Ratio 6.8 Mitral E to LV E' Septal Ratio 16.2 TR Peak Velocity 286.0 cm/s TR Peak Gradient 32.8 mmHg TV Peak E Velocity 149.0 cm/s Right Atrial Pressure 3.0 mmHg Pulmonary Artery Systolic Pressu 35.7 mmHg PV Peak Velocity 103.0 cm/s FINDINGS Left Ventricle Normal left ventricular size and systolic function, EF 60% . No regional wall motion abnormalities. Grade I/IV diastolic dysfunction (abnormal relaxation filling pattern), normal to mildly elevated filling pressures. Right Ventricle Normal right ventricular size and systolic function. Right Atrium Normal right atrial size. Left Atrium Mildly increased left atrial size. Mitral Valve No gross abnormalities noted Aortic Valve No gross abnormalities noted Tricuspid Valve No gross abnormalities noted Pulmonic Valve No significant stenotic or regurgitant lesions Pericardium No pericardial effusion. Aorta Normal aortic annulus size. CONCLUSIONS Normal left ventricular size and systolic function, EF 60% . No regional wall motion abnormalities. Grade I/IV diastolic dysfunction (abnormal relaxation filling pattern), normal to mildly elevated filling pressures. Normal right ventricular size and systolic function. Mildly increased left atrial size. There is no pericardial effusion. There are no intracardiac masses. No previous study is available for comparison. Dr Rani Monique MD FACC (Electronically Signed) Final Date: 03 May 2019 18:13 S
[2019-05-03 00:19] LABS: Troponin 5 2HR 14.18 ng/mL (0-10)
[2019-05-03 00:40] LABS: Troponin 5 2HR Delta -0.82 ABS# (0-10)
--- NOTE | 2019-05-03 00:41 | PC.NURSE ---
EKG done at 0037 and shown to ER doctor.
[2019-05-03] MEDS: nitroglycerin 0.4 mg sublingual Tablet SUBLINGUAL ×4 (00:42→22:37)
[2019-05-03] MEDS: nitroglycerin 1 gm/inch oint Pkt 1 INCH TOPICAL (00:48)
[2019-05-03] MEDS: morphine 4 mg/mL SDV 1 mL IVP ×4 (00:58→12:35)
[2019-05-03] MEDS: HYDROmorphone 1 mg/mL INJ 1 mL IVP (01:12)
[2019-05-03] MEDS: sodium chloride 0.9% 1,000 ML 100 ML IV (03:29)
--- NOTE | 2019-05-03 03:45 | ECG_ITS ---
Measurements Intervals [place] Rate: 68 P: 9 MN: 130 QRS: -16 QRSD: 89 T: -5 QT: 412 QTc: 440 SINUS RHYTHM MODERATE VOLTAGE CRITERIA FOR LVH, CONSIDER NORMAL VARIANT [MEETS CRITERIA IN ONE OF: R(aVL), S(V1), R(V5), R(V5/V6)+S(V1)] Compared to ECG 04/24/2019 16:09:04 No significant changes Electronically Signed On 05-03-2019 15:57:27 PACS ADMINISTRATOR by Porter Cooper M.D. [id number]
[2019-05-03 04:22] LABS: Basophils # 0.2 10^3/uL (0.0-0.1); Basophils % 1.9 %; Eosinophils # 1.3 10^3/uL (0.0-0.8); Eosinophils % 15.9 %; Hematocrit 38.8 % (37.0-47.0); Hemoglobin 12.2 g/dL (11.5-15.3); Lymphocytes # 2.5 10^3/uL (0.8-4.8); Mean Corpuscular HGB Conc 31.4 g/dL (30.0-36.0); Mean Corpuscular Hemoglobin 29.5 pg (28.0-34.0); Mean Corpuscular Volume 93.7 fL (81-99); Mean Platelet Volume 8.6 fL (7.4-10.4); Monocytes # 0.5 10^3/uL (0.2-0.9); Monocytes % 6.7 %; Neutrophils # 3.5 10^3/uL (1.8-7.7); Neutrophils % 44.2 %; Nucleated Red Blood Cells % 0 %; Platelet Count 258 10^3/cmm (130-400); Red Blood Count 4.14 10^6/uL (4.1-5.3); Red Cell Distribution Width 15.1 % (12.1-15.1); White Blood Count 7.9 10^3/uL (4.0-10.0)
--- NOTE | 2019-05-03 04:25 | PC.NURSE ---
Pt requesting pain medication, Unable to pull medication from pyxsis at this time d/t pt dropping off of the list. Pharmacy to bring morphine to the floor to be given.
[2019-05-03 04:49] LABS: Troponin 5 6HR 14.01 ng/L (0-10)
[2019-05-03 04:50] LABS: Troponin 5 6HR Delta -0.99 ng/L (0-12)
[2019-05-03 05:09] LABS: Anion Gap 14.5 (5-19); Blood Urea Nitrogen 10 mg/dL (6-20); Carbon Dioxide 21 mmol/L (22-29); Chloride 110 mmol/L (98-107); Glomerular Filtration Rate 48.6 mL/min (90-130); Glucose 141 mg/dL (74-109); Osmolality Calculated 292 mOsm/kg (285-295); Potassium 3.5 mmol/L (3.5-5.1); Sodium 142 mmol/L (136-145)
--- NOTE | 2019-05-03 06:39 | NMCV_ITS ---
NM mikhail perf SPECT r/s* [id number] Aguila Schaeferidi Age: 43 Gender: F : 1975 Exam Date: 05/03/2019 09:55 Ordering Phys: Mitul García MD Technologist: FAMILIA Cotton Exam Location: [facility] Indications: Chest pain STRESS TEST [facility] IMAGE PROTOCOL Rest/Stress 1 Exercise Day Radiopharmaceutical Dose (mCi) Administration Site Administered by Rest: Tc-99m 10.7 IV FAMILIA Cotton Sestamibi Stress:Tc-99m 32.6 IV FAMILIA Cotton Sestamibi Rest: 03-May-2019 60 Discovery 630 Stress: 03-May-2019 45 Discovery 630 Radiopharmaceutical was injected at 85 % maximum heart rate. Images obtained in supine and prone position. SPECT RESULTS Technical Quality: Excellent Raw Data Analysis: Normal Image Corrections: No attenuation or motion correction applied Summed Stress Score: 0 Summed Rest Score: 2 Summed Difference Score: 0 PERFUSION FINDINGS Fairly uniform myocardial tracer uptake. No significant perfusion abnormalities. FUNCTIONAL RESULTS (calculated via Gated SPECT) Stress Image LV EF (%): 81 Stress EDV (mL):93 TID: 0.93 Stress ESV (mL):18 FUNCTIONAL FINDINGS: Segmental wall motion analysis revealing no gross wall motion normalities IMPRESSIONS 1. Unremarkable myocardial perfusion imaging. 2. LV ejection fraction estimated to be 81%. 3. LV wall motion analysis revealing no gross wall motion normalities. 4. Normal LV volume. No significant coronary ischemia, based on the above findings Dr Rani Monique MD FACC (Electronically Signed) Final Date: 03 May 2019 15:26 S
--- NOTE | 2019-05-03 06:39 | ECG_ITS ---
NAME OF STUDY: EXERCISE SESTAMIBI STRESS TEST INDICATION: Chest Pain RESULTS TO TIM SAMANIEGO PROCEDURE: The baseline electrocardiogram showed normal sinus rhythm with nonspecific T wave changes. At the baseline, the patient's blood pressure was 179/111 mm Hg with a heart rate of 80. The patient exercised for 6 minutes on a standard Shukri protocol. Patient attained a maximum heart rate of 161 beats per minute( 92 % of the maximum predicted heart rate) with a blood pressure at the peak exercise of 194/105 mm Hg. The EKG at the peak exercise revealed some nonspecific ST-T changes. Because of the baseline artifact, the changes could not be delineated well. Patient did not have any chest pain or any significant arrhythmis with the exercise Sestamibi was injected 1 minute prior to the peak exercise During the recovery phase, there were no new changes. The EKG reverted back to the baseline Blood pressure at the end of the recovery phase was 178/95 mm Hg with a heart rate of 92 per minute. CONCLUSION: 1. Nonspecific EKG changes with the treadmill exercise 2. No exercise-induced chest pain or cardiac arrhythmia 3. Slightly impaired exercise tolerance, attained a maximum of 7.0 METs 4. Sestamibi/Sestamibi perfusion results pending; see separate report. Electronically Signed On 05-04-2019 15:54:42 ASSISTANT PROFESSOR OF EDUCATION by Rani Monique M.D. [email or web address]
--- NOTE | 2019-05-03 06:45 | PC.NURSE ---
Doctor notified of pt having chest pain unrelieved by morphine, HR 55-60 and blood pressure 179/99. Dr. García agrees to give 0.4MG Nitro SL at this time. Dr also notified that pt wishes to be a full code, Dr. garcía stated I already put that order in Dr. garcía and myself were unaware that the orders had dropped off and did not process. New orders were put in the pt's chart, and pt started on SL nitro.
--- NOTE | 2019-05-03 06:54 | PC.NURSE ---
Pt still c/o chest pain, second dose of SL nitro administered. Pt states It still feels a little tight, but I think it is easing up
[2019-05-03 07:36] LABS: Chol HDL Ratio 2.98 mg/dL (0.0-4.40); Cholesterol 146 mg/dL (0-200); HDL Cholesterol 49 mg/dL (60-100); LDL Cholesterol Calculated 67 mg/dL (50-129); LDL HDL Ratio 1.37 RATIO (0.00-3.22); Thyroid Stimulating Hormone 1.65 uIU/mL (0.27-4.20); Triglycerides 152 mg/dL (0-150)
[2019-05-03] MEDS: heparin 5,000 unit/mL INJ 1 mL 5000 UNIT SUBCUT ×2 (09:39→15:30)
[2019-05-03] MEDS: aspirin 81 mg EC Tablet PO (09:40)
[2019-05-03 10:44] LABS: Amphetamines Screen Urine Negative (Negative); Barbiturates Screen Urine Positive (Negative); Benzodiazepines Screen Urine Negative (Negative); Cocaine Screen Urine Negative (Negative); PCP Screen Urine Negative (Negative); THC Screen Urine Negative (Negative)
--- NOTE | 2019-05-03 12:56 | SUR.PREOP ---
Patient reports no chest pain or discomfort prior to the start of the exam.
--- NOTE | 2019-05-03 13:06 | PC.CHAP ---
Pastoral Care Encounter/Spiritual Assessment Type of Contact [] Declined reflexologist visit [] Patient/Family/Request visit [] Outpatient visit [] Follow-up visit [] Physician referral [] Code/Alert [x] Routine visit [] Staff referral [] Actively dying [] Patient sleeping [] Family support [] [] Out of room [] Palliative care [] [] Receiving care in room [] Pre-surgical visit [] Trauma [] Long length of stay [] ICU visit [] Other: Relational/Emotional Strength [x] Patient feels connected with others/family/visitors/staff [] Distress [] Loneliness/isolation [] Abandonment Spirituality of Patient x Person of Teresa [] Attends Rastafarian of their Teresa [] Believes in Prayer [] Reads Bible or Gnosticist materials [] There are Spiritual issues to be addressed Tool Smith Interventions [x] Prayer [] Active listening [] Non-anxious presence [] Spiritual/emotional support [] Crisis/trauma care [] Spiritual counseling [] Bereavement support [] Provided bereavement packet [] Provided Bible/devotional materials [] Provided toy/stuffed animal, coloring book to patient or family member [] Provided Communion [] Anointing/[place] [] Salvation [] Completed spiritual assessment [] Other: Impact on Illness or Injury [] Angry [] Fearful [] Anxious [] Often cries [] Exhaustion [] Unable to work [] Unable to attend sikhism [] Unable to walk/stand [] Unable to read [] Unable to drive [] Unable to eat/drink [] Unable to sleep [] Unable to be with family [] Patient intubated [] Other: Summary patient doing very well Time spent with patient 10 min
--- NOTE | 2019-05-03 13:53 | PM.PN ---
Subjective Subjective: Interval history: Therese reports she is still having some chest discomfort. She describes this as left side, worsening when she moves, and when pressure is on this area. She reports she is recently been working with her doctor to lower her blood pressure, and is on clonidine and metoprolol. Her blood pressures have been markedly elevated. Medications: Reviewed: Yes Vitals/I&O/Wt Last Vital Signs Temp 97.9 F 05/03/19 12:00 Pulse 55 L 05/03/19 12:00 Resp 18 05/03/19 12:00 BP 186/99 05/03/19 13:06 Pulse Ox 97 05/03/19 12:00 05/02/19 05/03/19 05/03/19 22:59 06:59 14:59 Intake Total 325 / 325 Output Total 800 / 800 Balance 325 / 325 -800 / -800 Weight last 48 hrs Weight 90.718 kg Physical Exam Narrative: EXAM NARRATIVE: General exam is no apparent distress Cardiovascular regular rate and rhythm without murmur, chest with pain to palpation in the left side Lungs clear Abdomen is soft with positive bowel sounds Extremities no cyanosis clubbing or edema Data : 05/03/19 04:05 05/03/19 04:05 A&P Assessment and plan (1) Chest pain: No significant delta on troponins. Mildly elevated. No evidence of myocardial infarction. This appears to be musculoskeletal but nuclear stress test is pending. Status: Acute Qualifiers: Chest pain type: unspecified Qualified Code(s): R07.9 - Chest pain, unspecified Code(s): R07.9 - Chest pain, unspecified (2) Hypertensive urgency: Needs improved blood pressure control. She just completed her nuclear stress test. She was on clonidine as well as metoprolol as an outpatient, just initiating treatment with these. I will place her on metoprolol 25 mg twice daily, and lisinopril 10 mg daily first dose now. I will reevaluate her blood pressure tomorrow. Use hydralazine as needed. Status: Acute Code(s): I16.0 - Hypertensive urgency Additional A&P Information PTSD/depression/anxiety disorder Acute kidney injury, unchanged, versus chronic kidney disease stage II Attestations Medical Necessity Statement*: Needs continued observation for adjustment of blood pressure medication, and awaiting nuclear stress test results. 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 Business Systems Administrator for Kimberly Gilman Diagnoses Chest pain R07.9 Chest pain type: unspecified Hypertensive urgency I16.0
[2019-05-03] MEDS: lisinopril 10 mg Tablet PO (15:26)
[2019-05-03] MEDS: HYDROcodone-acetaminophen 5-325 mg Tablet 1 TAB PO ×2 (17:04→21:07)
[2019-05-03] MEDS: metoprolol tartrate 25 mg Tablet PO (21:05)
[2019-05-04] MEDS: heparin 5,000 unit/mL INJ 1 mL 5000 UNIT SUBCUT ×2 (01:17→06:50)
[2019-05-04] MEDS: HYDROcodone-acetaminophen 5-325 mg Tablet 1 TAB PO ×3 (01:17→09:40)
[2019-05-04 03:53] VITALS: BP 132/80; PULSE 77; RESP 20; TEMP 36.5; O2SAT 94
[2019-05-04 07:18] VITALS: BP 123/81; PULSE 67; RESP 18; TEMP 36.6; O2SAT 98
[2019-05-04 08:00] VITALS: BP 123/81; PULSE 67; RESP 18; TEMP 36.6; O2SAT 98
[2019-05-04] MEDS: aspirin 81 mg EC Tablet PO (08:46)
[2019-05-04] MEDS: lisinopril 10 mg Tablet PO (08:46)
[2019-05-04] MEDS: metoprolol tartrate 25 mg Tablet PO (08:46)
--- NOTE | 2019-05-04 09:35 | PM.DCS ---
Discharge Providers Date of Admission: 05/03/19 01:42 Date of Discharge: Date of Discharge: May 04, 2019 Attending Provider at Admission: Mitul García MD Attending Provider at Discharge: Gio Daniel MD Primary Care Provider: NOA oHyt Diagnoses at Discharge Discharge Diagnosis (1) Chest pain: Status: Acute Problem details: Present, constant, pain with palpation consistent with musculoskeletal pain. Nuclear stress test negative. Echocardiogram preserved EF with no wall motion abnormalities Qualifiers: Chest pain type: unspecified Qualified Code(s): R07.9 - Chest pain, unspecified (2) Hypertensive urgency: Status: Acute Problem details: Much improved on current doses of metoprolol, lisinopril Reason for Visit Reason for Visit: Reason For Visit: CHEST PAINS Hospital Course Hospital Course: Patient presented with left-sided chest discomfort, atypical. Secondary to multiple visits to the ER and slightly elevated troponin as well as markedly elevated blood pressure she was placed in observation in the hospital. Serial troponins demonstrated no significant delta. Echocardiogram demonstrated normal EF, 1/4 diastolic dysfunction, no wall motion abnormalities. Nuclear stress test demonstrated no reversible ischemia. Metoprolol, lisinopril were added during her hospital stay for blood pressure control. By May 04 she was feeling much better. She still had some chest wall pain to palpation. Blood pressure was much better controlled, 123/81 at discharge. Physical Exam Narrative: EXAM NARRATIVE: General exam no apparent distress Cardiovascular regular rate and rhythm Lungs clear Abdomen is soft with positive bowel sounds Extremities no cyanosis clubbing or edema Discharge Data Data Completed and Pending: Completed Studies During Hospitalization Category Date Time Status XR chest 1V 72029 Stat Exams 05/02/19 21:19 Completed NM mikhail perf SPECT r/s* [id number] Routin e Nuc Med 05/03/19 06:39 Completed CV echo complete* [id number] Routine Ultrasound 05/03/19 Completed Pending at discharge Category Date Time Status Sestamibi Stress Test Request Routi ne Exams 05/03/19 06:39 Ordered Basic Metabolic P soco Routine Lab 05/04/19 06:14 Ordered Labs from last 24 hours 05/03/19 10:10 Urine Opiates Scre en Positve Ur Barbiturates Sc reen Positive H Ur Phencyclidine S crn Negative Ur Amphetamines Sc reen Negative U Benzodiazepines Scrn Negative Urine Cocaine Scre en Negative U Marijuana (THC) Screen Negative Vitals: Last Vital Signs Temp 97.8 F 05/04/19 08:00 Pulse 67 05/04/19 08:00 Resp 18 05/04/19 08:00 BP 123/81 05/04/19 08:00 Pulse Ox 98 05/04/19 08:00 Discharge Plan Discharge Patient Disposition: Home, Self-Care Condition: Stable Prescriptions: New lisinopril 10 mg Tablet 10 mg PO DAILY Qty: 30 RF: 0 metoprolol tartrate 25 mg Tablet 25 mg PO BID Qty: 60 RF: 0 Continued olanzapine [Zyprexa] 5 mg tablet 5 mg PO .morning Qty: 30 RF: 4 citalopram [Celexa] 20 mg tablet 20 mg PO .morning Qty: 30 RF: 4 lorazepam 1 mg tablet 1 mg PO TID PRN (Reason: anxiety) Qty: 90 RF: 4 zolpidem [Ambien] 10 mg tablet 10 mg PO .QHS Qty: 30 RF: 4 Discharge Orders: Discharge Order (Routine); Ordered 05/04/19 Ordered By: Gio Daniel Referrals: Ej Salinas FNP [Primary Care Provider] - 4-7 days Discharge Diet: Cardiac Discharge Activity: Resume usual activity Activity Restrictions/Additional Instructions: Take all medicine as prescribed. Keep check of blood pressure and bring to primary care provider. Discharge Attestations Time Spent in Discharge Care*: greater than 30 min Quality Metrics Clinical Quality Measures During this hospital stay, did patient experience: None 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 Ballistics Expert for Kimberly Gilman Diagnoses Chest pain R07.9 Chest pain type: unspecified Hypertensive urgency I16.0
== END 2019-05-04 12:12 | disposition home or self-care (01) ==
LOC: ER 05-03 01:41 → MEDSURG 05-03 02:17
PROVIDERS: Family Medicine; Admitting Provider Internal Medicine; Emergency Provider Emergency Medicine; PCP Nurse Practitioner Family; Visit Provider Internal Medicine
DX: R07.9 Chest pain, unspecified (principal); I16.0 Hypertensive urgency; Z87.891 Personal history of nicotine dependence
CPT/HCPCS: 12345; 36415; 71045; 78452; 80048; 80053; 80061; 80307; 84443; 84484; 85025; 93005; 93017; 93306; 96372; 96374; 96375; 99283; 99285; A9500; G0378; J1170; J1644; J2270; J2550; J7030

== ENCOUNTER 2019-06-07 22:01 | Inpatient (IN) | payer SELFPAY ==
[2019-06-07 22:02] VITALS: BP 149/96; PULSE 85; RESP 24; TEMP 37.1; O2SAT 95; BMI 32.5
--- NOTE | 2019-06-07 22:05 | ED_ITS ---
Entered by Gretel Robles, acting as scribe for Epi Belcher DO HPI - Chest Pain General: Chief Complaint: Chest Pain Stated Complaint: chest discomfort/ sob Time Seen by Provider: 06/07/19 22:05 Source: patient, EMS and RN notes reviewed Mode of arrival: EMS Limitations: no limitations History of Present Illness: HPI narrative: 43 yo female presents to ED with complaints of chest pain/discomfort and shortness of breath. The patient states the pain is centralized and to the L side. She states it hurts to take deep breaths and walk. She said she had the flu at the beginning of the week and has some shortness of breath due to that but she began having chest pain today. The patient confirms that she has asthma. She has L sided back pain. She given aspirin and Nitro by EMS while in route to the ER. MD complaint: chest pain and chest discomfort Pertinent past history: asthma and other (anxiety) Onset (ago): hour(s) (this morning) Timing of current episode: episodic and still present Prior episodes: No Onset: during rest Pain location: substernal and left chest Pain radiation: none Severity: moderate Quality: sharp Relieving factors: nothing Exacerbating factors: inspiration and movement Context: recent illness Associated symptoms: Reports dyspnea; Deny abdominal pain, fever(s), nausea, palpitations or vomiting Treatment prior to arrival: aspirin and nitroglycerin Risk Factors: Coronary artery disease risk factors: smoking history (former) Thoracic aortic dissection risk factors: none Review of Systems Const: Denies: fever or chills Eyes: Denies: change in vision or blurry vision ENMT: Denies: painful swallowing, swelling of lips/tongue, post nasal drip or facial/sinus pain Card: Reports: chest pain; Denies: palpitations, irregular heart rhythm, edema or swelling of feet/ankles Resp: Reports: shortness of breath GI: Denies: abdominal pain, nausea or vomiting : Denies: painful urination, urinary frequency, urinary urgency or blood in urine Musc: Denies: neck pain, back pain, redness or joint warmth Skin/Breast: Denies: rash, itching or redness Neuro: Denies: headache, dizziness or vertigo Psych: Denies: anxiety PFS ED PFSH: Medical History Chronic post-traumatic stress disorder of child Generalized anxiety disorder Hypertension Major depressive disorder, recurrent episode, in partial remission with anxious distress Peptic ulcer disease Weight gain due to medication Surgical History H/O: hysterectomy History of partial gastrectomy Hx of cholecystectomy S/P appendectomy Social History Smoking and tobacco status: former smoker Alcohol intake: never Household members: children Housing: House Physical Exam Const: GENERAL APPEARANCE: well developed ORIENTATION/CONSCIOUSNESS: Yes oriented to person, Yes oriented to place and Yes oriented to time HENMT: COMMON NORMALS: external ears normal and external nose normal FACE & SINUS: normal facial exam NOSE: external nose normal and no nasal discharge EXTERNAL EAR: Yes external ears normal THROAT: posterior oropharynx normal; no peritonsillar mass Eye: COMMON NORMALS: PERRL, EOMs intact bilaterally and conjunctivae normal EYELID: eyelids normal CONJUNCTIVA: Yes conjunctivae normal PUPIL: Yes PERRL Neck/C-Spine: COMMON NORMALS: full ROM GENERAL: No tracheal deviation Chest: COMMONS NORMALS: inspection of chest normal CHEST: Yes tenderness Resp: COMMON NORMALS: clear to auscultation bilaterally EFFORT & INSPECTION: No tachypneic, No respiratory distress, No retractions, No uses accessory muscles and No tracheal deviation AUSCULTATION: clear to auscultation bilaterally, no rhonchi, no wheezes and lung sounds not diminished Cardio: COMMON NORMALS: regular rate and regular rhythm RATE: regular rate RHYTHM: regular rhythm HEART SOUNDS: no murmurs PERIPHERAL PULSES: radial pulses present GI: INSPECTION: No abdominal distension AUSCULTATION: No hyperactive bowel sounds and No hypoactive bowel sounds PALPATION: No guarding and No rigid PERCUSSION: no dullness to percussion and no tympanic to percussion Neuro: SENSORIUM/ORIENTATION: Yes oriented to person, Yes oriented to place and Yes oriented to time Psych: COMMON NORMALS: mental status grossly normal Skin: COMMON NORMALS: no rashes or lesions noted GENERAL SKIN EXAM: no rashes or lesions noted Course Vital Signs: Vital signs: Vital Signs Temperature 98.7 F 06/07/19 22:02 Pulse Rate 81 06/08/19 03:53 Respiratory Rate 16 06/08/19 03:53 Blood Pressure 152/99 06/08/19 03:53 Pulse Oximetry 95 06/08/19 03:53 MDM - Chest Pain MDM Narrative: Medical decision making narrative: 43-year-old female with pleuritic chest pain shortness of breath. She had a significantly elevated d- dimer. EKG was not remarkable for ST changes. Her troponin did not elevate. CT scan did not show a PE. There was no pneumonia. She has an unexplained significant metabolic acidosis with a pH of 7.24 on blood gas testing. Her serum qualitative hCG was positive, even though the patient has had a hysterectomy. She will be admitted to the floor for IV fluid support and correction of her metabolic acidosis. Lab Data: Labs: Lab Results 06/07/19 06/07/19 06/07/19 Range/Units 22:33 22:33 22:33 WBC 11.1 H (4.0-10.0) 10^3/ uL RBC 4.27 (4.1-5.3) 10^6/u L Hgb 13.2 (11.5-15.3) g/dL Hct 42.5 (37.0-47.0) % MCV 99.5 H (81-99) fL MCH 30.9 (28.0-34.0) pg MCHC 31.1 (30.0-36.0) g/dL RDW 17.4 H (12.1-15.1) % Plt Count 334 (130-400) 10^3/c mm MPV 8.8 (7.4-10.4) fL Neut % (Auto) 83.7 % Lymph % (Auto) 11.0 % [place] % (Auto) 4.5 % Eos % (Auto) 0.2 % Baso % (Auto) 0.3 % Neut # (Auto) 9.3 H (1.8-7.7) 10^3/u L Lymph # (Auto) 1.2 (0.8-4.8) 10^3/u L [place] # (Auto) 0.5 (0.2-0.9) 10^3/u L Eos # (Auto) 0.0 (0.0-0.8) 10^3/u L Baso # (Auto) 0.0 (0.0-0.1) 10^3/u L Nucleated RBC % (a uto) 0 % Nucleated RBCs # 0.0 /100WBC D-Dimer (0-0.59) ug/mIFE U Specimen Type Sample Site ABG pH (7.35-7.45) ABG pCO2 (35-45) mmHg ABG pO2 (80.0-100.0) mmH g ABG HCO3 (22-26) mmol/L ABG Base Excess (-2.0-2.0) mmol/ L Caleb Test Hematocrit (37-47) % O2 Delivery Device Battery Assembler ID Sodium 136 (136-145) mmol/L Potassium 4.3 (3.5-5.1) mmol/L Chloride 106 (98-107) mmol/L Carbon Dioxide 14 L (22-29) mmol/L Anion Gap 20.3 H (5-19) BUN 20 (6-20) mg/dL Creatinine 1.4 H (0.5-0.9) mg/dL GFR Calculation 40.7 L (90-130) mL/min Glucose 132 H (65-115) mg/dL Lactate (0.5-2.2) mmol/L Calcium 9.8 (8.5-10.5) mg/dL Total Bilirubin 0.2 (0.15-1.2) mg/dL AST 18 (0-32) U/L ALT 22 (0-33) U/L Alkaline Phosphata se 117 H (35-105) IU/L Troponin T Baselin e 11 H (0-10) ng/mL Troponin T 120 Min [place] (0-10) ng/mL Delta Troponin T (0-10) ABS# NT-Pro-B Natriuret Pep 175 H (0-125) pg/mL Total Protein 6.1 L (6.6-8.7) g/dL Albumin 3.8 (3.5-5.2) g/dL Globulin 2.3 (1.3-4.6) g/dL HCG, Qual (Negative) Ser , Rehan i-Qnt Urine Color (Yellow) Urine Appearance (CLEAR) Urine pH (5-7) Ur Specific Gravit y (1.005-1.030) Urine Protein (Negative) Urine Glucose (UA) (Normal) Urine Ketones (Negative) Urine Blood (Negative) Urine Nitrate (Negative) Urine Bilirubin (NEGATIVE) Urine Urobilinogen (Negative) mg/dL Ur Leukocyte Stephanie ase (Negative) Urine RBC (0-2) /hpf Urine WBC (0-5) /hpf Ur Squamous Epith Cells (0-5) Urine Bacteria (NONE) Ethyl Alcohol (0-10) mg/dL Influenza Type A A g (Negative) POC Influenza B Ag (Negative) 06/07/19 06/07/19 06/07/19 Range/Units 22:33 22:33 22:33 WBC (4.0-10.0) 10^3/ uL RBC (4.1-5.3) 10^6/u L Hgb (11.5-15.3) g/dL Hct (37.0-47.0) % MCV (81-99) fL MCH (28.0-34.0) pg MCHC (30.0-36.0) g/dL RDW (12.1-15.1) % Plt Count (130-400) 10^3/c mm MPV (7.4-10.4) fL Neut % (Auto) % Lymph % (Auto) % [place] % (Auto) % Eos % (Auto) % Baso % (Auto) % Neut # (Auto) (1.8-7.7) 10^3/u L Lymph # (Auto) (0.8-4.8) 10^3/u L [place] # (Auto) (0.2-0.9) 10^3/u L Eos # (Auto) (0.0-0.8) 10^3/u L Baso # (Auto) (0.0-0.1) 10^3/u L Nucleated RBC % (a uto) % Nucleated RBCs # /100WBC D-Dimer 1.28 H (0-0.59) ug/mIFE U Specimen Type Sample Site ABG pH (7.35-7.45) ABG pCO2 (35-45) mmHg ABG pO2 (80.0-100.0) mmH g ABG HCO3 (22-26) mmol/L ABG Base Excess (-2.0-2.0) mmol/ L Caleb Test Hematocrit (37-47) % O2 Delivery Device Battery Assembler ID Sodium (136-145) mmol/L Potassium (3.5-5.1) mmol/L Chloride (98-107) mmol/L Carbon Dioxide (22-29) mmol/L Anion Gap (5-19) BUN (6-20) mg/dL Creatinine (0.5-0.9) mg/dL GFR Calculation (90-130) mL/min Glucose (65-115) mg/dL Lactate (0.5-2.2) mmol/L Calcium (8.5-10.5) mg/dL Total Bilirubin (0.15-1.2) mg/dL AST (0-32) U/L ALT (0-33) U/L Alkaline Phosphata se (35-105) IU/L Troponin T Baselin e (0-10) ng/mL Troponin T 120 Min [place] (0-10) ng/mL Delta Troponin T (0-10) ABS# NT-Pro-B Natriuret Pep (0-125) pg/mL Total Protein (6.6-8.7) g/dL Albumin (3.5-5.2) g/dL Globulin (1.3-4.6) g/dL HCG, Qual Positive H (Negative) Ser , Rehan i-Qnt Urine Color (Yellow) Urine Appearance (CLEAR) Urine pH (5-7) Ur Specific Gravit y (1.005-1.030) Urine Protein (Negative) Urine Glucose (UA) (Normal) Urine Ketones (Negative) Urine Blood (Negative) Urine Nitrate (Negative) Urine Bilirubin (NEGATIVE) Urine Urobilinogen (Negative) mg/dL Ur Leukocyte Stephanie ase (Negative) Urine RBC (0-2) /hpf Urine WBC (0-5) /hpf Ur Squamous Epith Cells (0-5) Urine Bacteria (NONE) Ethyl Alcohol < 10 (0-10) mg/dL Influenza Type A A g (Negative) POC Influenza B Ag (Negative) 06/07/19 06/07/19 06/07/19 Range/Units 22:33 22:39 23:00 WBC (4.0-10.0) 10^3/ uL RBC (4.1-5.3) 10^6/u L Hgb (11.5-15.3) g/dL Hct (37.0-47.0) % MCV (81-99) fL MCH (28.0-34.0) pg MCHC (30.0-36.0) g/dL RDW (12.1-15.1) % Plt Count (130-400) 10^3/c mm MPV (7.4-10.4) fL Neut % (Auto) % Lymph % (Auto) % [place] % (Auto) % Eos % (Auto) % Baso % (Auto) % Neut # (Auto) (1.8-7.7) 10^3/u L Lymph # (Auto) (0.8-4.8) 10^3/u L [place] # (Auto) (0.2-0.9) 10^3/u L Eos # (Auto) (0.0-0.8) 10^3/u L Baso # (Auto) (0.0-0.1) 10^3/u L Nucleated RBC % (a uto) % Nucleated RBCs # /100WBC D-Dimer (0-0.59) ug/mIFE U Specimen Type Sample Site ABG pH (7.35-7.45) ABG pCO2 (35-45) mmHg ABG pO2 (80.0-100.0) mmH g ABG HCO3 (22-26) mmol/L ABG Base Excess (-2.0-2.0) mmol/ L Caleb Test Hematocrit (37-47) % O2 Delivery Device Battery Assembler ID Sodium (136-145) mmol/L Potassium (3.5-5.1) mmol/L Chloride (98-107) mmol/L Carbon Dioxide (22-29) mmol/L Anion Gap (5-19) BUN (6-20) mg/dL Creatinine (0.5-0.9) mg/dL GFR Calculation (90-130) mL/min Glucose (65-115) mg/dL Lactate (0.5-2.2) mmol/L Calcium (8.5-10.5) mg/dL Total Bilirubin (0.15-1.2) mg/dL AST (0-32) U/L ALT (0-33) U/L Alkaline Phosphata se (35-105) IU/L Troponin T Baselin e (0-10) ng/mL Troponin T 120 Min [place] (0-10) ng/mL Delta Troponin T (0-10) ABS# NT-Pro-B Natriuret Pep (0-125) pg/mL Total Protein (6.6-8.7) g/dL Albumin (3.5-5.2) g/dL Globulin (1.3-4.6) g/dL HCG, Qual (Negative) Ser , Rehan i-Qnt Cancelled Urine Color Yellow (Yellow) Urine Appearance Hazy A (CLEAR) Urine pH 5 (5-7) Ur Specific Gravit y 1.020 (1.005-1.030) Urine Protein 1+ H (Negative) Urine Glucose (UA) Norm (Normal) Urine Ketones Negative (Negative) Urine Blood 3+ H (Negative) Urine Nitrate Negative (Negative) Urine Bilirubin 1+ H (NEGATIVE) Urine Urobilinogen Norm (Negative) mg/dL Ur Leukocyte Stephanie ase Negative (Negative) Urine RBC >100 H (0-2) /hpf Urine WBC Rare (0-5) /hpf Ur Squamous Epith Cells 5-10 H (0-5) Urine Bacteria 1+ H (NONE) Ethyl Alcohol (0-10) mg/dL Influenza Type A A g Negative (Negative) POC Influenza B Ag Negative (Negative) 06/07/19 06/08/19 06/08/19 Range/Units 23:42 00:01 00:26 WBC (4.0-10.0) 10^3/ uL RBC (4.1-5.3) 10^6/u L Hgb (11.5-15.3) g/dL Hct (37.0-47.0) % MCV (81-99) fL MCH (28.0-34.0) pg MCHC (30.0-36.0) g/dL RDW (12.1-15.1) % Plt Count (130-400) 10^3/c mm MPV (7.4-10.4) fL Neut % (Auto) % Lymph % (Auto) % [place] % (Auto) % Eos % (Auto) % Baso % (Auto) % Neut # (Auto) (1.8-7.7) 10^3/u L Lymph # (Auto) (0.8-4.8) 10^3/u L [place] # (Auto) (0.2-0.9) 10^3/u L Eos # (Auto) (0.0-0.8) 10^3/u L Baso # (Auto) (0.0-0.1) 10^3/u L Nucleated RBC % (a uto) % Nucleated RBCs # /100WBC D-Dimer (0-0.59) ug/mIFE U Specimen Type Arterial Sample Site Brachial, left ABG pH 7.24 L (7.35-7.45) ABG pCO2 31.7 L (35-45) mmHg ABG pO2 89.4 (80.0-100.0) mmH g ABG HCO3 13.5 L (22-26) mmol/L ABG Base Excess -12.7 L (-2.0-2.0) mmol/ L Caleb Test N/a Hematocrit 41.1 (37-47) % O2 Delivery Device Room air Battery Assembler ID [email or web address] Sodium (136-145) mmol/L Potassium (3.5-5.1) mmol/L Chloride (98-107) mmol/L Carbon Dioxide (22-29) mmol/L Anion Gap (5-19) BUN (6-20) mg/dL Creatinine (0.5-0.9) mg/dL GFR Calculation (90-130) mL/min Glucose (65-115) mg/dL Lactate 0.7 (0.5-2.2) mmol/L Calcium (8.5-10.5) mg/dL Total Bilirubin (0.15-1.2) mg/dL AST (0-32) U/L ALT (0-33) U/L Alkaline Phosphata se (35-105) IU/L Troponin T Baselin e (0-10) ng/mL Troponin T 120 Min [place] 10.03 H (0-10) ng/mL Delta Troponin T -0.97 L (0-10) ABS# NT-Pro-B Natriuret Pep (0-125) pg/mL Total Protein (6.6-8.7) g/dL Albumin (3.5-5.2) g/dL Globulin (1.3-4.6) g/dL HCG, Qual (Negative) Ser , Rehan i-Qnt Urine Color (Yellow) Urine Appearance (CLEAR) Urine pH (5-7) Ur Specific Gravit y (1.005-1.030) Urine Protein (Negative) Urine Glucose (UA) (Normal) Urine Ketones (Negative) Urine Blood (Negative) Urine Nitrate (Negative) Urine Bilirubin (NEGATIVE) Urine Urobilinogen (Negative) mg/dL Ur Leukocyte Stephanie ase (Negative) Urine RBC (0-2) /hpf Urine WBC (0-5) /hpf Ur Squamous Epith Cells (0-5) Urine Bacteria (NONE) Ethyl Alcohol (0-10) mg/dL Influenza Type A A g (Negative) POC Influenza B Ag (Negative) Discharge Plan Discharge Patient Disposition: Home, Self-Care Clinical Impression: Atypical chest pain Condition: Stable 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 of Care Code ED Silk Examiner for Chg Fwd Exam Comprehensive The documentation recorded by the Margaret douglas Valerie R, accurately reflects the service I personally performed and the decisions made by Ye coronado Jeremy John, DO Jun 07, 2019 22:01
--- NOTE | 2019-06-07 22:09 | PC.NURSE ---
PATIENT STATES SHE HAD THE FLU AT THE BEGINNING OF THE WEEK AND WHEN SHE GOT OFF WORK AT 0800 THIS MORNING SHE STARTED HAVING SHORTNESS OF BREATH. PATIENT STATES IT WAS HARD TO WALK UP STAIRS. PATIENT STATES AN HOUR AGO HER LEFT SIDE OF HER CHEST STARTED HURTING AND THAT IS RADIATING DOWN INTO HER LEFT ARM.
--- NOTE | 2019-06-07 22:11 | PC.NURSE ---
EKG done at 2210 and shown to ER doctor
[2019-06-07 22:19] VITALS: BP 153/106; PULSE 85; RESP 17; O2SAT 95
--- NOTE | 2019-06-07 22:20 | ECG_ITS ---
Measurements Intervals [place] Rate: 90 P: 49 [place]: 133 QRS: -5 QRSD: 84 T: 7 QT: 345 QTc: 422 SINUS RHYTHM NONSPECIFIC T-WAVE ABNORMALITY Compared to ECG 05/03/2019 00:40:10 T-wave abnormality now present Electronically Signed On 06-08-2019 19:03:32 ELECTRIC MOTOR REPAIRMAN by Mitul Carrion M.D. [id number]
--- NOTE | 2019-06-07 22:22 | XR_ITS ---
WS: [id number] XR chest 1V portable [id number] REASON FOR EXAM: cp FINDINGS: Comparisons were made to May 02, 2019. The heart is not enlarged A scoliotic curve convex to the right is seen. The lung mart are well aerated. No pneumonia, pleural effusion, pulmonary edema, pneumothorax, or m ass effect. The hilum and apices normal. No osseous abnormalities. XR/XR chest 1V portable [id number] IMPRESSION: Negative chest for active pathology.
[2019-06-07 22:38] LABS: Basophils % 0.3 %; Eosinophils % 0.2 %; Hematocrit 42.5 % (37.0-47.0); Hemoglobin 13.2 g/dL (11.5-15.3); Lymphocytes # 1.2 10^3/uL (0.8-4.8); Mean Corpuscular HGB Conc 31.1 g/dL (30.0-36.0); Mean Corpuscular Hemoglobin 30.9 pg (28.0-34.0); Mean Corpuscular Volume 99.5 fL (81-99); Mean Platelet Volume 8.8 fL (7.4-10.4); Monocytes # 0.5 10^3/uL (0.2-0.9); Monocytes % 4.5 %; Neutrophils # 9.3 10^3/uL (1.8-7.7); Neutrophils % 83.7 %; Nucleated Red Blood Cells % 0 %; Platelet Count 334 10^3/cmm (130-400); Red Blood Count 4.27 10^6/uL (4.1-5.3); Red Cell Distribution Width 17.4 % (12.1-15.1); White Blood Count 11.1 10^3/uL (4.0-10.0)
[2019-06-07 22:41] VITALS: RESP 16; O2SAT 96
[2019-06-07] MEDS: morphine 4 mg/mL SDV 1 mL IVP (22:41)
[2019-06-07] MEDS: sodium chloride 0.9% 500 ML 999 ML IV (22:42)
[2019-06-07 22:44] VITALS: BP 144/96; PULSE 86; RESP 16; O2SAT 95
--- NOTE | 2019-06-07 22:47 | PC.NURSE ---
XRAY IN ROOM
[2019-06-07 23:03] LABS: HCG, Serum Qual Positive (Negative)
[2019-06-07 23:10] LABS: Blood Urine 3+ (Negative); Glucose Urine UA Norm (Normal); Ketones Urine Negative (Negative); Nitrate Urine Negative (Negative); Protein Urine 1+ (Negative); Urine Appearance Hazy (CLEAR); Urine Color Yellow (Yellow); pH Urine 5 (5-7)
[2019-06-07 23:10] LABS: Alanine Aminotransferase 22 U/L (0-33); Albumin Level 3.8 g/dL (3.5-5.2); Alkaline Phosphatase 117 IU/L (35-105); Anion Gap 20.3 (5-19); Aspartate Amino Transferase 18 U/L (0-32); Blood Urea Nitrogen 20 mg/dL (6-20); Calcium 9.8 mg/dL (8.5-10.5); Carbon Dioxide 14 mmol/L (22-29); Chloride 106 mmol/L (98-107); Globulin 2.3 g/dL (1.3-4.6); Glomerular Filtration Rate 40.7 mL/min (90-130); Glucose 132 mg/dL (65-115); NT Pro B Type Natriuretic Pept 175 pg/mL (0-125); Potassium 4.3 mmol/L (3.5-5.1); Sodium 136 mmol/L (136-145); Total Bilirubin 0.2 mg/dL (0.15-1.2); Total Protein 6.1 g/dL (6.6-8.7)
[2019-06-07 23:11] LABS: Add Urine Microscopic? YES; Bilirubin Urine 1+ (NEGATIVE); Leukocyte Esterase Urine Negative (Negative); Urobilinogen Urine Norm (Negative)
[2019-06-07 23:11] LABS: Troponin(5th) Baseline 11 ng/mL (0-10)
[2019-06-07 23:16] LABS: Influenza A by IFA Negative (Negative); Influenza B by IFA Negative (Negative)
[2019-06-07 23:21] LABS: Add Urine Culture? Yes; Bacteria Urine 1+; RBC Urine >100 /hpf (0-2); WBC Urine RARE /hpf (0-5)
[2019-06-07 23:26] LABS: D Dimer 1.28 ug/mIFEU (0-0.59)
[2019-06-07] MEDS: ipratropium-albuterol 3 mL Neb INHALATION (23:42)
[2019-06-07 23:54] VITALS: BP 145/89; PULSE 85; RESP 14; O2SAT 95
[2019-06-07 23:55] LABS: Alcohol Level < 10 mg/dL (0-10)
[2019-06-08] VITALS (19 sets, daily range): BP systolic 136–165; BP diastolic 75–111; PULSE 60–95; RESP 14–20; TEMP 36.1–36.8; O2SAT 95–99
--- NOTE | 2019-06-08 | CTR_ITS ---
PROCEDURE INFORMATION: Exam: CT Angiography Chest With Contrast Exam date and time: 06/08/2019 1:46 AM Age: 43 years old Clinical indication: Chest pain; Type not specified TECHNIQUE: Imaging protocol: Computed tomographic angiography of the chest with intravenous contrast. 3D rendering: MIP and/or 3D reconstructed images were created by the technologist. Total DLP: 600.05 mGy-cm Radiation optimization: All CT scans at this facility use at least one of these dose optimization techniques: automated exposure control; mA and/or kV adjustment per patient size (includes targeted exams where dose is matched to clinical indication); or iterative reconstruction. Contrast material: VISI; Contrast volume: 95 ml; Contrast route: 20G; COMPARISON: CR XR chest 1V portable [id number] 06/07/2019 10:25 PM FINDINGS: Pulmonary arteries: Normal. No pulmonary emboli. Aorta: Unremarkable. No aortic aneurysm. No aortic dissection. Lungs: Unremarkable. No consolidation. No masses. Pleural space: Unremarkable. No pneumothorax. No pleural effusion. Heart: Unremarkable. No cardiomegaly. No pericardial effusion. Lymph nodes: Unremarkable. No enlarged lymph nodes. Bones/joints: Unremarkable. No acute fracture. Soft tissues: Unremarkable. CT/CT angio chest PE protcl [id number] IMPRESSION: No acute findings. There is no evidence for pulmonary emboli. Radiation Dose CTDIVOL = (mGy): DLP = 600.05 (mGy-cm)
[2019-06-08 00:06] LABS: Lactate (Lactic Acid level) 0.7 mmol/L (0.5-2.2)
[2019-06-08] MEDS: sodium chloride 0.9% 1,000 ML 999 ML IV (00:13)
[2019-06-08 00:14] LABS: ABG PCO2 31.7 mmHg (35-45); ABG PH Result 7.24 (7.35-7.45); Arterial Blood Gas Hematocrit 41.1 % (37-47); Base Excess ABG -12.7 mmol/L (-2.0-2.0); Blood Gas Sample Site Brachial, left; Blood Gas Sample Type Arterial; HCO3 ABG 13.5 mmol/L (22-26); Oxygen Device ROOM AIR; PO2 ABG 89.4 mmHg (80.0-100.0)
[2019-06-08] MEDS: ketorolac 30 mg/mL INJ IVP (00:14)
--- NOTE | 2019-06-08 00:20 | ECG_ITS ---
Measurements Intervals [place] Rate: 82 P: 49 [place]: 145 QRS: -15 QRSD: 86 T: -14 QT: 339 QTc: 397 SINUS RHYTHM MINIMAL VOLTAGE CRITERIA FOR LVH, CONSIDER NORMAL VARIANT [MEETS CRITERIA IN ONE OF: R(aVL), S(V1), R(V5), R(V5/V6)+S(V1)] NONSPECIFIC T-WAVE ABNORMALITY Compared to ECG 05/03/2019 00:40:10 T-wave abnormality now present Electronically Signed On 06-08-2019 19:06:23 LUBE ATTENDANT by Mitul Carrion M.D. [id number]
[2019-06-08 01:06] LABS: Troponin 5 2HR 10.03 ng/mL (0-10)
[2019-06-08 01:07] LABS: Troponin 5 2HR Delta -0.97 ABS# (0-10)
--- NOTE | 2019-06-08 02:20 | PC.NURSE ---
PATIENT TO CT
[2019-06-08] MEDS: iodixanol 320 mg/mL 100mL Btl IV (02:27)
[2019-06-08] MEDS: morphine 4 mg/mL SDV 1 mL IVP (03:18)
--- NOTE | 2019-06-08 03:30 | P.HP_ITS ---
Providers/Chief Complaint Primary Care Provider: Rosi Shell NP Chief Complaint: chest discomfort/ sob History of Present Illness Therese Schaefer is a 43 year old female who has history of anxiety disorder, was admitted last time with chief complaint of chest pain stress test was negative, she was discharged on lisinopril and metoprolol coming in today with chief complaint of not feeling well. Patient is stating that she felt like a very bad flu has hit her, she has lost her energy, she is very tired, she has been experiencing abdominal pain and right and left lower quadrants, associated with 5-6 episodes of vomiting, hot flashes, occasional dark-colored stool which she describes as coffee-ground, 12 pounds weight loss in the last 40 days denies night sweats, fever. Patient is stating that she is hurting everywhere in her abdomen, chest, left shoulder, she feels short of breath. He denies any previous history of cancer. She has been compliant with her medications. Diagnostics in ER showed normal hemodynamics however bicarb was low, ABG was obtained which showed metabolic acidosis, lactic acid is normal, ketones negat lane, alcohol level undetectable, I have ordered salicylate level Tylenol level, beta-hCG is positive despite hysterectomy, CT a negative for PE, CT abdomen was quested, flu swab was obtained, flu negative Review of Systems Const: Reports: chills, body aches, fatigue and malaise; Denies: fever Eyes: Denies: change in vision ENMT: Denies: throat pain Card: Reports: chest pain; Denies: edema or pre-syncope Resp: Reports: shortness of breath; Denies: productive cough or non-productive cough GI: Reports: abdominal pain, nausea, vomiting, diarrhea, change in bowel habits and black tarry stool; Denies: vomiting blood or coffee grounds in vomit : Denies: flank pain, difficulty urinating or urinary frequency Musc: Reports: back pain, extremity pain, joint pain, joint stiffness and muscle weakness; Denies: extremity swelling Skin/Breast: Denies: rash or itching Neuro: Denies: headache Psych: Reports: anxiety, depression, mood swings and sleeping more Endo: Reports: excessive urination Gomez/Lymph: Denies: easy bruising All/Imm: Denies: hives Medications/Allergies Allergies Allergy/AdvReac Type Severity Reaction Status Date / Time baclofen Allergy Unknown Unknown Verified 04/16/19 08:04 codeine Allergy Unknown rash Verified 04/16/19 08:02 ondansetron [From Zofran] Allergy Unknown ALGY-Anaphy Verified 04/16/19 08:04 laxis prochlorperazine Allergy Unknown Unknown Verified 04/16/19 08:04 [From Compazine] metoclopramide [From Reglan] Allergy ALGY-Hives Verified 04/24/19 13:01 PFSH Acute PFSH: Medical History Chronic post-traumatic stress disorder of child Generalized anxiety disorder Hypertension Major depressive disorder, recurrent episode, in partial remission with anxious distress Peptic ulcer disease Weight gain due to medication Surgical History H/O: hysterectomy History of partial gastrectomy Hx of cholecystectomy S/P appendectomy Social History Smoking and tobacco status: former smoker Alcohol intake: never Household members: children Housing: House Vitals/I&O/Wt Last Vital Signs Temp 98.7 F 06/07/19 22:02 Pulse 87 06/08/19 03:12 Resp 16 06/08/19 03:18 BP 136/95 06/08/19 03:12 Pulse Ox 96 06/08/19 03:18 06/07/19 06/07/19 06/08/19 14:59 22:59 06:59 Intake Total 1500 / 1500 Balance 1500 / 1500 Weight last 48 hrs Weight 86.183 kg Physical Exam Narrative: EXAM NARRATIVE: This is a pleasant young female Lying comfortably in her bed Saturating well on room air blood pressure is 170/110 S1, S2 no active JVD or heart failure Abdomen, soft nontender nondistended, bowel sound present, mild tenderness to deep palpation in left and right lower quadrants, No restaurant distress, no adventitious sounds, bilateral good breath sounds Skin does not show any sign ischemia gangrene ulcer No digital clubbing Appropriate mood and affect Data : 06/07/19 22:33 06/07/19 22:33 A&P Assessment and plan (1) Atypical chest pain: Status: Acute Code(s): R07.89 - Other chest pain (2) High anion gap metabolic acidosis: Status: Acute Code(s): E87.2 - Acidosis (3) Pelvic pain with positive beta-human chorionic gonadotropin (BhCG) in f emale: Status: Acute Code(s): O02.81 - Inappropriate change in quantitative human chorionic gonadotropin (hCG) in early Additional A&P Information Patient has atypical reproducible chest pain No EKG changes for ischemia, Currently she is hypertensive 170/110 Denying shortness of breath She is tender to palpation around her sternal area, left shoulder, left paraspin al muscles Flu panel negative, no leukocytosis, patient is afebrile Beta-hCG positive She has a history of hysterectomy, will obtain CT abdomen to rule out any bleeding causes of positive beta-hCG She has been experiencing weight loss, hot flashes, abdominal pain No family history of cancer High anion gap metabolic acidosis Cause unknown Normal lactic acid, she is hypertensive, CT ruled out PE, alcohol level undetectable, Will obtain Tylenol and salicylate level Denies history of seizures, will check ketone level We will give her 1 amp of bicarb, no active respiratory distress, Anxiety/PTSD: Continue her anxiolytics Full code Heparin DVT prophylaxis Attestations Medical Necessity Statement*: Anticipating discharge less than 48 hours after ruling out etiology for metabolic acidosis, currently needing 1 amp of bicarb Time Spent in Patient Care: 40 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 Senior Principal Architect for Chg Fwd Diagnoses Atypical chest pain R07.89 High anion gap metabolic acidosis E87.2 Pelvic pain with positive beta-human chorionic gonadotropin (BhCG) in female O02.81
--- NOTE | 2019-06-08 04:20 | ECG_ITS ---
Measurements Intervals [place] Rate: 82 P: 41 [place]: 143 QRS: -20 QRSD: 88 T: 33 QT: 360 QTc: 423 SINUS RHYTHM VOLTAGE CRITERIA FOR LVH [MEETS CRITERIA IN ONE OF: R(aVL), S(V1), R(V5), R (V5/V6)+S(V1)] NONSPECIFIC T-WAVE ABNORMALITY Compared to ECG 05/03/2019 00:40:10 T-wave abnormality now present Electronically Signed On 06-08-2019 19:05:56 DIRECTOR OF GRADUATE ADMISSIONS by Mitul Carrion M.D. [email or web address]
--- NOTE | 2019-06-08 05:23 | CTR_ITS ---
PROCEDURE INFORMATION: Exam: CT Abdomen And Pelvis Without Contrast Exam date and time: 06/08/2019 7:13 AM Age: 43 years old Clinical indication: Abdominal pain; Localized; Left upper quadrant (luq); Prior surgery; Surgery date: 6+ months; Surgery type: Gb, appy hysto TECHNIQUE: Imaging protocol: Computed tomography of the abdomen and pelvis without contrast. Total DLP: 1100.47 mGy-cm Radiation optimization: All CT scans at this facility use at least one of these dose optimization techniques: automated exposure control; mA and/or kV adjustment per patient size (includes targeted exams where dose is matched to clinical indication); or iterative reconstruction. COMPARISON: CT Abdomen/Pelvis Renal [id number] 2019-02-17 08:56 FINDINGS: Limitations: Study is limited by the absence of contrast. Liver: Normal. No mass. Gallbladder and bile ducts: Cholecystectomy. Pancreas: Mild peripancreatic stranding, and trace fluid along the pancreatic tail and spleen, correlate with labs for acute pancreatitis versus inflammation associated with the stomach. Spleen: Normal. No splenomegaly. Adrenals: Normal. No mass. Kidneys and ureters: Normal. No hydronephrosis. Stomach and bowel: Multiple clips in the region of the stomach compatible with previous surgery. Partial gastrectomy. Previous partial gastrectomy, wall thickening, correlate for gastritis. Appendix: Appendectomy. Intraperitoneal space: Unremarkable. No free air. No significant fluid collection. Vasculature: Unremarkable. No abdominal aortic aneurysm. Lymph nodes: Unremarkable. No enlarged lymph nodes. Bladder: Unremarkable as visualized. Reproductive: Hysterectomy. Bones/joints: Mild lumbar spondylosis. Soft tissues: Midline laparotomy scar. CT/CT abdomen pelvis [facility] [id number] IMPRESSION: Mild peripancreatic stranding, and trace fluid along the pancreatic tail and spleen, correlate with labs for acute pancreatitis versus inflammation associated with the stomach. Impression. Radiation Dose CTDIVOL = (mGy): DLP = 1100.47 (mGy-cm)
[2019-06-08] MEDS: citalopram 20 mg Tablet PO (05:49)
[2019-06-08] MEDS: heparin 5,000 unit/mL INJ 1 mL 5000 UNIT SUBCUT ×2 (05:49→17:14)
[2019-06-08] MEDS: sodium bicarbonate 150 MEQ in dextrose 5% 1,000 ML IV ×2 (05:52→13:51)
[2019-06-08 06:28] LABS: Troponin 5 6HR 12.45 ng/mL (0-10); Troponin 5 6HR Delta 1.45 ng/L (0-12)
[2019-06-08 06:32] LABS: Ketone (Acetest) Serum Negative (Negative)
[2019-06-08 06:37] LABS: Acetaminophen 17.4 ug/mL (10-30); Salicylate 3.9 mg/dL (3-10)
[2019-06-08 06:39] LABS: Amphetamines Screen Urine Negative (Negative); Barbiturates Screen Urine Negative (Negative); Benzodiazepines Screen Urine Positive (Negative); Cocaine Screen Urine Negative (Negative); Opiate Screen Urine Positive (Negative); PCP Screen Urine Negative (Negative); THC Screen Urine Negative (Negative)
[2019-06-08] MEDS: metoprolol tartrate 25 mg Tablet PO ×2 (08:22→20:51)
[2019-06-08] MEDS: oxyCODONE-APAP 5-325 mg Tablet 1 TAB PO ×3 (08:22→20:25)
--- NOTE | 2019-06-08 13:04 | PC.CHAP ---
Pastoral Care Encounter/Spiritual Assessment Type of Contact [] Declined land surveyor manager visit [] Patient/Family/Request visit [] Outpatient visit [] Follow-up visit [] Physician referral [] Code/Alert [X] Routine visit [] Staff referral [] Actively dying [] Patient sleeping [] Family support [] [] Out of room [] Palliative care [] [] Receiving care in room [] Pre-surgical visit [] Trauma [] Long length of stay [] ICU visit [] Other: Relational/Emotional Strength [] Patient feels connected with others/family/visitors/staff [] Distress [] Loneliness/isolation [] Abandonment Spirituality of Patient [] Person of Teresa [] Attends Methodist of their Teresa [] Believes in Prayer [] Reads Bible or Samaritan materials [] There are Spiritual issues to be addressed Continuous Mining Machine Operator Interventions [X] Prayer [] Active listening [] Non-anxious presence [] Spiritual/emotional support [] Crisis/trauma care [] Spiritual counseling [] Bereavement support [] Provided bereavement packet [] Provided Bible/devotional materials [] Provided toy/stuffed animal, coloring book to patient or family member [] Provided Communion [] Anointing/[place] [] Salvation [] Completed spiritual assessment [] Other: Impact on Illness or Injury [] Angry [] Fearful [] Anxious [] Often cries [] Exhaustion [] Unable to work [] Unable to attend sikhism [] Unable to walk/stand [] Unable to read [] Unable to drive [] Unable to eat/drink [] Unable to sleep [] Unable to be with family [] Patient intubated [] Other: Summary Time spent with patient
--- NOTE | 2019-06-08 13:05 | PC.CHAP ---
Pastoral Care Encounter/Spiritual Assessment Type of Contact [] Declined insurance verifier visit [] Patient/Family/Request visit [] Outpatient visit [] Follow-up visit [] Physician referral [] Code/Alert [X] Routine visit [] Staff referral [] Actively dying [] Patient sleeping [] Family support [] [] Out of room [] Palliative care [] [] Receiving care in room [] Pre-surgical visit [] Trauma [] Long length of stay [] ICU visit [] Other: Relational/Emotional Strength [] Patient feels connected with others/family/visitors/staff [] Distress [] Loneliness/isolation [] Abandonment Spirituality of Patient [] Person of Teresa [] Attends Holiness of their Teresa [] Believes in Prayer [] Reads Bible or Taoism materials [] There are Spiritual issues to be addressed Wood Scrap Handler Interventions [X] Prayer [] Active listening [] Non-anxious presence [] Spiritual/emotional support [] Crisis/trauma care [] Spiritual counseling [] Bereavement support [] Provided bereavement packet [] Provided Bible/devotional materials [] Provided toy/stuffed animal, coloring book to patient or family member [] Provided Communion [] Anointing/[place] [] Salvation [] Completed spiritual assessment [] Other: Impact on Illness or Injury [] Angry [] Fearful [] Anxious [] Often cries [] Exhaustion [] Unable to work [] Unable to attend sikh [] Unable to walk/stand [] Unable to read [] Unable to drive [] Unable to eat/drink [] Unable to sleep [] Unable to be with family [] Patient intubated [] Other: Summary Time spent with patient
--- NOTE | 2019-06-08 13:06 | PC.CHAP ---
Pastoral Care Encounter/Spiritual Assessment Type of Contact [] Declined mogul operator visit [] Patient/Family/Request visit [] Outpatient visit [] Follow-up visit [] Physician referral [] Code/Alert [X] Routine visit [] Staff referral [] Actively dying [] Patient sleeping [] Family support [] [] Out of room [] Palliative care [] [] Receiving care in room [] Pre-surgical visit [] Trauma [] Long length of stay [] ICU visit [] Other: RelationaXXXXXXXXXXXXXXXXXXXXXXXXXXXXXXXXXXXXXXXXXXXXXXXXXXXXXXXXXXXXl/Emotional Strength [] Patient feels connected with others/family/visitors/staff [] Distress [] Loneliness/isolation [] Abandonment Spirituality of Patient [X] Person of Teresa [X] Attends Congregation of their Teresa [X] Believes in Prayer [X] Reads Bible or Yarsanism materials [] There are Spiritual issues to be addressed Terrazzo Finisher Interventions [X] Prayer [X] Active listening [XXXXXXXXXXXXXXXXXXXXXXXXXXXXXXXX] Non-anxious presence [] Spiritual/emotional support [] Crisis/trauma care [] Spiritual counseling [] Bereavement support [] Provided bereavement packet [] Provided Bible/devotional materials [] Provided toy/stuffed animal, coloring book to patient or family member [] Provided Communion [] Anointing/[place] [] Salvation [] Completed spiritual assessment [] Other: Impact on Illness or Injury [] Angry [] Fearful [] Anxious [] Often cries [] Exhaustion [] Unable to work [] Unable to attend mu-ism [] Unable to walk/stand [] Unable to read [] Unable to drive [] Unable to eat/drink [] Unable to sleep [] Unable to be with family [] Patient intubated [] Other: Summary Time spent with patient
[2019-06-08 15:14] LABS: Basophils % 0.1 %; Hematocrit 37.1 % (37.0-47.0); Hemoglobin 11.2 g/dL (11.5-15.3); Lymphocytes # 0.9 10^3/uL (0.8-4.8); Lymphocytes % 12.6 %; Mean Corpuscular HGB Conc 30.2 g/dL (30.0-36.0); Mean Corpuscular Hemoglobin 30.7 pg (28.0-34.0); Mean Corpuscular Volume 101.6 fL (81-99); Mean Platelet Volume 8.8 fL (7.4-10.4); Monocytes # 0.4 10^3/uL (0.2-0.9); Monocytes % 4.8 %; Neutrophils % 82.2 %; Nucleated Red Blood Cells % 0 %; Platelet Count 251 10^3/cmm (130-400); Red Blood Count 3.65 10^6/uL (4.1-5.3); Red Cell Distribution Width 17.4 % (12.1-15.1); White Blood Count 7.2 10^3/uL (4.0-10.0)
[2019-06-08 15:28] LABS: Alanine Aminotransferase 19 U/L (0-33); Albumin Level 3.2 g/dL (3.5-5.2); Alkaline Phosphatase 99 IU/L (35-105); Anion Gap 14.6 (5-19); Aspartate Amino Transferase 16 U/L (0-32); Blood Urea Nitrogen 13 mg/dL (6-20); Calcium 9.1 mg/dL (8.5-10.5); Carbon Dioxide 22 mmol/L (22-29); Chloride 106 mmol/L (98-107); Creatinine Clr Calc Pharmacy 83.8569; Globulin 1.8 g/dL (1.3-4.6); Glomerular Filtration Rate 67.7 mL/min (90-130); Glucose 154 mg/dL (65-115); Potassium 3.6 mmol/L (3.5-5.1); Sodium 139 mmol/L (136-145); Total Bilirubin 0.2 mg/dL (0.15-1.2)
[2019-06-08 15:49] LABS: Lipase 1286 U/L (13-60)
[2019-06-08 16:07] LABS: HCG Quantitative 7.08 mIU/mL
[2019-06-08 16:18] LABS: Chol HDL Ratio 2.59 mg/dL (0.0-4.40); Cholesterol 119 mg/dL (0-200); HDL Cholesterol 46 mg/dL (60-100); LDL Cholesterol Calculated 49 mg/dL (50-129); LDL HDL Ratio 1.07 RATIO (0.00-3.22); Triglycerides 122 mg/dL (0-150)
[2019-06-08] MEDS: LORazepam 1 mg Tablet PO (17:13)
--- NOTE | 2019-06-08 18:16 | P.PN_ITS ---
Subjective Subjective: Interval history: [place]. Overnight labs and H&P reviewed. Per additional history obtained this morning by review of prior records it appears patient has a history of partial gastric sleeve surgery for perforated gastric ulcer in 2004 with repair needed in 2006. The surgery was done in [place]. Since then she was relatively asymptomatic until about 3 years ago when she had an episode of GI bleeding and underwent an endoscopy. This was done at [facility] in [place] and as far as she is aware there were no issues found at that time. She has additionally presented to the ER since middle of 2008 pain with similar symptoms of abdominal pain nausea and vomiting. Per review of notes from August 2018, it appears there were some plans to undergo an endoscopy for possible hematemesis however patient clinically improved and this did not happen. She was placed on Protonix twice daily at that time, however I do not see this on her medication list currently. Additionally she had also tested positive for beta hCG in February 2019. Medications: Reviewed: Yes Vitals/I&O/Wt Last Vital Signs Temp 98.2 F 06/08/19 15:12 Pulse 67 06/08/19 15:12 Resp 16 06/08/19 15:12 BP 148/82 06/08/19 15:12 Pulse Ox 97 06/08/19 15:12 06/08/19 06/08/19 06/08/19 06:59 14:59 22:59 Intake Total 1500 / 1500 2520 / 2520 240 / 2760 Balance 1500 / 1500 2520 / 2520 240 / 2760 Weight last 48 hrs Weight 86.183 kg Physical Exam Narrative: EXAM NARRATIVE: GEN: Awake, alert and oriented, no acute distress CVS: S1S2 N RS: CTA B/L Abd: Soft, nondistended, tenderness to palpation over epigastric and left upper quadrant areas, bowel sounds positive. IT OPERATIONS SPECIALIST: no focal neuro deficits Data : 06/08/19 14:53 06/08/19 14:53 A&P Assessment and plan (1) Acute pancreatitis: Status: Acute Code(s): K85.90 - Acute pancreatitis without necrosis or infection, unspecified (2) High anion gap metabolic acidosis: Status: Acute Code(s): E87.2 - Acidosis (3) Chronic post-traumatic stress disorder: Status: Acute Code(s): F43.12 - Post-traumatic stress disorder, chronic (4) Generalized anxiety disorder: Status: Acute Code(s): F41.1 - Generalized anxiety disorder (5) Major depressive disorder, recurrent episode, in partial remission with a nxious distress: Status: Acute Code(s): F33.41 - Major depressive disorder, recurrent, in partial remission; F41.8 - Other specified anxiety disorders (6) Elevated serum hCG: Status: Acute Code(s): E34.9 - Endocrine disorder, unspecified Additional A&P Information 1. Acute pancreatitis Lipase level checked afternoon greater than 1200 CT abdomen with peripancreatic inflammation and fluid around the pancreatic tail. Above findings may be mimicked also by chronic gastritis which is additionally seen on CT. Given history of partial gastrectomy, recurrent ER visits for complaints of abdominal pain nausea and vomiting , possibility of gastritis could not be excluded. For now we will also add Protonix. If patient fails to improve with conservative management of acute pancreatitis, will discuss with surgery regarding need for EGD this admission. Stop regular diet for now and switch to clear liquid. Patient appeared to be tolerating a regular diet though limited by poor appetite all day. Continue IV fluid resuscitation with 150 cc an hour She reports a history of chills over the past 2 days. Check blood culture. Empiric 1 dose of ceftriaxone for now while undergoing sepsis work-up. Leukocytosis is resolved today. PRN oxycodone and Toradol for pain control. check lipid panel s/p cholecystectomy 2. High anion gap metabolic acidosis resolved today, likely as a result of improved hydration. 3. Elevated beta-hCG, may be a result of postmenopausal state. Noted to be e levated since at least February 2019. Will check FSH and LH levels with a.m. labs to evaluate for pituitary source of elevated hCG. No gross ovarian masses noted on CT of the abdomen pelvis. 4. Depression: Continue citalopram and zolpidem Full code DVT prophylaxis: Heparin s/c Attestations Medical Necessity Statement*: Management of acute pancreatitis 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 Atomic Process Engineer for Kimberly Gilman Diagnoses Acute pancreatitis K85.90 High anion gap metabolic acidosis E87.2 Chronic post-traumatic stress disorder F43.12 Generalized anxiety disorder F41.1 Major depressive disorder, recurrent episode, in partial remission with anxious distress F33.41; F41.8 Elevated serum hCG E34.9
[2019-06-08] MEDS: cefTRIAXone 1,000 MG in sodium chloride 0.9% (plus) 50 ML 100 MG IV (18:22)
[2019-06-08] MEDS: ketorolac 30 mg/mL INJ 15 MG IVP (18:38)
[2019-06-08] MEDS: morphine 4 mg/mL SDV 1 mL 1 MG IVP (21:04)
[2019-06-09] VITALS (16 sets, daily range): BP systolic 145–169; BP diastolic 78–105; PULSE 74–100; RESP 14–20; TEMP 36.6–37; O2SAT 92–100
[2019-06-09] MEDS: oxyCODONE-APAP 5-325 mg Tablet 1 TAB PO ×6 (00:28→23:53)
[2019-06-09] MEDS: LORazepam 1 mg Tablet PO ×3 (01:18→16:42)
[2019-06-09] MEDS: ketorolac 30 mg/mL INJ 15 MG IVP ×2 (03:34→12:49)
[2019-06-09] MEDS: morphine 4 mg/mL SDV 1 mL 1 MG IVP ×4 (05:07→22:33)
[2019-06-09] MEDS: citalopram 20 mg Tablet PO (06:08)
[2019-06-09] MEDS: heparin 5,000 unit/mL INJ 1 mL 5000 UNIT SUBCUT ×2 (06:09→17:18)
[2019-06-09] MEDS: metoprolol tartrate 25 mg Tablet PO ×2 (08:26→17:17)
[2019-06-09] MEDS: pantoprazole DR 40 mg Tablet PO ×2 (08:26→17:18)
--- NOTE | 2019-06-09 12:02 | PC.CHAP ---
Pastoral Care Encounter/Spiritual Assessment Type of Contact [] Declined manufacturing accountant visit [] Patient/Family/Request visit [] Outpatient visit [] Follow-up visit [] Physician referral [] Code/Alert [] Routine visit [] Staff referral [] Actively dying [x] Patient sleeping [] Family support [] [] Out of room [] Palliative care [] [] Receiving care in room [] Pre-surgical visit [] Trauma [] Long length of stay [] ICU visit [] Other: Relational/Emotional Strength [] Patient feels connected with others/family/visitors/staff [] Distress [] Loneliness/isolation [] Abandonment Spirituality of Patient [] Person of Teresa [] Attends Pentecostal of their Teresa [] Believes in Prayer [] Reads Bible or Church materials [] There are Spiritual issues to be addressed Gas Turbine Assembler Interventions [] Prayer [] Active listening [] Non-anxious presence [] Spiritual/emotional support [] Crisis/trauma care [] Spiritual counseling [] Bereavement support [] Provided bereavement packet [] Provided Bible/devotional materials [] Provided toy/stuffed animal, coloring book to patient or family member [] Provided Communion [] Anointing/[place] [] Salvation [] Completed spiritual assessment [] Other: Impact on Illness or Injury [] Angry [] Fearful [] Anxious [] Often cries [] Exhaustion [] Unable to work [] Unable to attend latter-day [] Unable to walk/stand [] Unable to read [] Unable to drive [] Unable to eat/drink [] Unable to sleep [] Unable to be with family [] Patient intubated [] Other: Summary Patient needs follow up by Gas Turbine Assembler. Time spent with patient
--- NOTE | 2019-06-09 14:27 | P.PN_ITS ---
Subjective Subjective: Interval history: Abdominal pain is under better control today. Patient is tolerating clear liquid diet. However this is limited by lack of appetite. She has been eating some Jell-O without any issues. IV fluids appear to have been off since last night. Lab was unable to draw her blood this morning in spite of multiple attempts. Medications: Reviewed: Yes Vitals/I&O/Wt Last Vital Signs Temp 98.6 F 06/09/19 11:26 Pulse 82 06/09/19 11:26 Resp 16 06/09/19 11:26 BP 145/84 06/09/19 11:26 Pulse Ox 93 06/09/19 11:26 06/08/19 06/09/19 06/09/19 21:59 06:59 14:59 Intake Total 840 / 840 Output Total 700 / 700 Balance 140 / 140 Weight last 48 hrs Weight 86.183 kg Physical Exam Narrative: EXAM NARRATIVE: GEN: Awake, alert and oriented, no acute distress CVS: S1S2 N RS: CTA B/L Abd: Soft, nondistended, tenderness to palpation over epigastric region. SALES ASSISTANTS AND SALESPERSONS: no focal neuro deficits Data : 06/08/19 14:53 06/08/19 14:53 Micro: Microbiology 06/07/19 23:00 Urine Culture - Preliminary Urine,Clean Catch A&P Assessment and plan (1) Acute pancreatitis: Status: Acute Code(s): K85.90 - Acute pancreatitis without necrosis or infection, unspecified (2) High anion gap metabolic acidosis: Status: Acute Code(s): E87.2 - Acidosis (3) Chronic post-traumatic stress disorder: Status: Acute Code(s): F43.12 - Post-traumatic stress disorder, chronic (4) Generalized anxiety disorder: Status: Acute Code(s): F41.1 - Generalized anxiety disorder (5) Major depressive disorder, recurrent episode, in partial remission with anxious distress: Status: Acute Code(s): F33.41 - Major depressive disorder, recurrent, in partial remission; F41.8 - Other specified anxiety disorders (6) Elevated serum hCG: Status: Acute Code(s): E34.9 - Endocrine disorder, unspecified Additional A&P Information 1. Acute pancreatitis CT abdomen with peripancreatic inflammation and fluid around the pancreatic tail, lipase ~1200 Above findings may be mimicked also by chronic gastritis which is additionally seen on CT. Given history of partial gastrectomy, recurrent ER visits for complaints of abdominal pain nausea and vomiting , possibility of gastritis could not be excluded. Continue Protonix. If patient fails to improve with conservative management of acute pancreatitis, may additionally need EGD Tolerating clear liquid diet, will advance to full liquid tonight and see if patient tolerates. Continue IV fluid resuscitation Patient has remained afebrile and leukocytosis resolved completely with IV hydration alone, making it more likely that dehydration was the underlying cause. No overt clinical signs of sepsis at this present time. We will hold off on any additional antibiotics.. PRN oxycodone and Toradol for pain control. Lipid panel and calcium are normal s/p cholecystectomy 2. High anion gap metabolic acidosis resolved, likely as a result of improved hydration. 3. Elevated beta-hCG, may be a result of postmenopausal state. Noted to be elevated since at least February 2019. Will check FSH and LH levels with a.m. labs to evaluate for pituitary source of elevated hCG. No gross ovarian masses noted on CT of the abdomen pelvis. 4. Depression: Continue citalopram and zolpidem 5. HTN: Add amlodipine 5mg po qd Full code DVT prophylaxis: Heparin s/c Attestations Medical Necessity Statement*: Management of acute pancreatitis, now improving. 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 Assistant Store Manager Sales for Kimberly Fwd Diagnoses Acute pancreatitis K85.90 High anion gap metabolic acidosis E87.2 Chronic post-traumatic stress disorder F43.12 Generalized anxiety disorder F41.1 Major depressive disorder, recurrent episode, in partial remission with anxious distress F33.41; F41.8 Elevated serum hCG E34.9
[2019-06-09] MEDS: amlodipine 5 mg Tablet PO (14:40)
[2019-06-09] MEDS: sodium chloride 0.9% 1,000 ML 100 ML IV (14:41)
--- NOTE | 2019-06-09 22:46 | PC.NURSE ---
Patient refused telemetry.
[2019-06-10] VITALS (13 sets, daily range): BP systolic 127–156; BP diastolic 77–93; PULSE 83–106; RESP 14–20; TEMP 36.8–37.3; O2SAT 94–95
[2019-06-10] MEDS: LORazepam 1 mg Tablet PO ×2 (01:34→08:30)
[2019-06-10] MEDS: ketorolac 30 mg/mL INJ 15 MG IVP (01:43)
[2019-06-10] MEDS: oxyCODONE-APAP 5-325 mg Tablet 1 TAB PO ×5 (04:00→23:32)
[2019-06-10] MEDS: citalopram 20 mg Tablet PO (05:15)
[2019-06-10] MEDS: heparin 5,000 unit/mL INJ 1 mL 5000 UNIT SUBCUT ×2 (05:15→17:39)
[2019-06-10] MEDS: morphine 4 mg/mL SDV 1 mL 1 MG IVP ×3 (05:23→20:10)
--- NOTE | 2019-06-10 06:12 | PC.NURSE ---
Refused fluids. Patient has refused fluids all night. Patient also refused morning lab draw and said maybe later. This nurse educated patient on the importance of fluids and treatment plan.
[2019-06-10] MEDS: pantoprazole DR 40 mg Tablet PO ×2 (08:30→17:39)
[2019-06-10] MEDS: metoprolol tartrate 25 mg Tablet PO ×2 (08:31→17:38)
[2019-06-10] MEDS: amlodipine 5 mg Tablet PO (08:31)
[2019-06-10 10:30] LABS: Basophils % 0.4 %; Eosinophils # 0.3 10^3/uL (0.0-0.8); Eosinophils % 4.3 %; Hematocrit 35.8 % (37.0-47.0); Lymphocytes % 13.1 %; Mean Corpuscular HGB Conc 30.7 g/dL (30.0-36.0); Mean Corpuscular Hemoglobin 30.6 pg (28.0-34.0); Mean Corpuscular Volume 99.7 fL (81-99); Monocytes # 0.6 10^3/uL (0.2-0.9); Monocytes % 7.6 %; Neutrophils # 5.8 10^3/uL (1.8-7.7); Neutrophils % 74.2 %; Nucleated Red Blood Cells % 0 %; Platelet Count 198 10^3/cmm (130-400); Red Blood Count 3.59 10^6/uL (4.1-5.3); Red Cell Distribution Width 17.6 % (12.1-15.1); White Blood Count 7.9 10^3/uL (4.0-10.0)
[2019-06-10 10:43] LABS: Alanine Aminotransferase 23 U/L (0-33); Albumin Level 2.6 g/dL (3.5-5.2); Alkaline Phosphatase 103 IU/L (35-105); Anion Gap 12.6 (5-19); Aspartate Amino Transferase 24 U/L (0-32); Blood Urea Nitrogen 6 mg/dL (6-20); Calcium 8.6 mg/dL (8.5-10.5); Carbon Dioxide 24 mmol/L (22-29); Chloride 106 mmol/L (98-107); Globulin 2.6 g/dL (1.3-4.6); Glomerular Filtration Rate 90.5 mL/min (90-130); Glucose 106 mg/dL (65-115); Potassium 3.6 mmol/L (3.5-5.1); Sodium 139 mmol/L (136-145); Total Bilirubin 0.2 mg/dL (0.15-1.2); Total Protein 5.2 g/dL (6.6-8.7)
--- NOTE | 2019-06-10 10:58 | PC.CHAP ---
Pastoral Care Encounter/Spiritual Assessment Type of Contact [] Declined poultry picking machine tender visit [] Patient/Family/Request visit [] Outpatient visit [] Follow-up visit [] Physician referral [] Code/Alert [x] Routine visit [] Staff referral [] Actively dying [] Patient sleeping [] Family support [] [] Out of room [] Palliative care [] [] Receiving care in room [] Pre-surgical visit [] Trauma [] Long length of stay [] ICU visit [] Other: Relational/Emotional Strength [x] Patient feels connected with others/family/visitors/staff [] Distress [] Loneliness/isolation [] Abandonment Spirituality of Patient [] Person of Teresa [] Attends Anglican of their Teresa [x] Believes in Prayer [] Reads Bible or Druze materials [] There are Spiritual issues to be addressed Ammonia Nitrate Operator Interventions [x] Prayer [x] Active listening [x] Non-anxious presence [x] Spiritual/emotional support [] Crisis/trauma care [] Spiritual counseling [] Bereavement support [] Provided bereavement packet [] Provided Bible/devotional materials [] Provided toy/stuffed animal, coloring book to patient or family member [] Provided Communion [] Anointing/[place] [] Salvation [x] Completed spiritual assessment [] Other: Impact on Illness or Injury [] Angry [] Fearful [] Anxious [] Often cries [] Exhaustion [] Unable to work [] Unable to attend rastafari [] Unable to walk/stand [] Unable to read [] Unable to drive [] Unable to eat/drink [] Unable to sleep [] Unable to be with family [] Patient intubated [] Other: Summary Pt expects to be discharged today. Ammonia Nitrate Operator Ginger Tijerina Time spent with patient 7 monutes
[2019-06-10 11:07] LABS: Follicle Stimulating Hormone 72.9 mIU/mL
--- NOTE | 2019-06-10 11:55 | P.PN_ITS ---
Subjective Subjective: Interval history: Patient reports feeling better and wants to go home. She continues to have epigastric area abdominal pain which she rates 7-8 out of 10. Reports that she tolerates clear liquids well and denies being nauseous. She refused to have IV fluids and reports drinking a pitcher of water every couple of hours and reports that today she noted significant improvement in her urinary output. She has history of cholecystectomy and hysterectomy. Her hCG level is at postmenopausal range. Patient reports taking lisinopril, metoprolol, Ativan and Ambien at home. (Lisinopril not mentioned in her home medications.) Denies drinking alcohol or using illicit drugs. Medications: Reviewed: Yes Vitals/I&O/Wt Last Vital Signs Temp 99.1 F 06/10/19 11:25 Pulse 83 06/10/19 11:25 Resp 14 06/10/19 11:25 BP 148/93 06/10/19 11:25 Pulse Ox 95 06/10/19 11:25 06/09/19 06/10/19 06/10/19 22:59 06:59 14:59 Intake Total 1111.667 / 1951.667 400 / 2351.667 840 / 840 Output Total 500 / 1200 1000 / 2200 200 / 200 Balance 611.667 / 751.667 -600 / 151.667 640 / 640 Physical Exam Const: COMMON NORMALS: no apparent distress and oriented x3 Resp: COMMON NORMALS: normal respiratory effort and clear to auscultation bilaterally AUSCULTATION: clear to auscultation bilaterally Cardio: COMMON NORMALS: regular rate, regular rhythm and S2 normal heart sound RATE: regular rate RHYTHM: regular rhythm HEART SOUNDS: S2 normal OTHER: No lower extremity edema GI: COMMON NORMALS: soft to palpation PALPATION: Yes soft OTHER: Tender to palpation at epigastric area. No rebound tenderness or guarding. Neuro: COMMON NORMALS: oriented x3 and no focal motor deficits Data : 06/10/19 10:18 06/10/19 10:18 Micro: Microbiology 06/07/19 23:00 Urine Culture - Final Urine,Clean Catch 06/10/19 10:22 Blood Culture - Preliminary Blood SPECIMEN COLLECTED 06/10/19 10:18 Blood Culture - Preliminary Blood SPECIMEN COLLECTED A&P Assessment and plan (1) Acute pancreatitis: Status: Acute Code(s): K85.90 - Acute pancreatitis without necrosis or infection, unspecified (2) High anion gap metabolic acidosis: Status: Acute Code(s): E87.2 - Acidosis (3) Chronic post-traumatic stress disorder: Status: Acute Code(s): F43.12 - Post-traumatic stress disorder, chronic (4) Generalized anxiety disorder: Status: Acute Code(s): F41.1 - Generalized anxiety disorder (5) Major depressive disorder, recurrent episode, in partial remission with anxious distress: Status: Acute Code(s): F33.41 - Major depressive disorder, recurrent, in partial remission; F41.8 - Oth er specified anxiety disorders (6) Elevated serum hCG: Status: Acute Code(s): E34.9 - Endocrine disorder, unspecified Additional A&P Information 1. Acute pancreatitis Recheck lipase. Continue monitoring and continue pain control. Discussed with patient regarding importance of appropriate hydration and she wants to continue with oral hydration instead of IV. Should patient continue to have pain consider repeating CT scan of the abdomen. We will need to confirm/reconcile medications and if patient takes lisinopril this will need to be discontinued as it potentially can cause pancreatitis. Monitor CMP and lipase daily. PRN oxycodone and Toradol for pain control. Lipid panel and calcium are normal s/p cholecystectomy 2. High anion gap metabolic acidosis resolved, likely as a result of improved hydration. 3. Elevated beta-hCG, in postmenopausal range. 4. Depression: Continue citalopram and zolpidem 5. HTN: Add amlodipine 5mg po qd 6. Hematuria with bacteriuria. Concerning for UTI. Will start patient on ceftriaxone patient. Discussed with patient to have outpatient follow-up with primary care physician to make sure hematuria resolves otherwise she will need to have further evaluation with cystoscopy. Full code DVT prophylaxis: Heparin s/c Attestations Medical Necessity Statement*: Patient with acute pancreatitis requires close inpatient monitoring and treatment will deemed safe for discharge. 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 Manager Of School for Chg Fwd Diagnoses Acute pancreatitis K85.90 High anion gap metabolic acidosis E87.2 Chronic post-traumatic stress disorder F43.12 Generalized anxiety disorder F41.1 Major depressive disorder, recurrent episode, in partial remission with anxious distress F33.41; F41.8 Elevated serum hCG E34.9
[2019-06-10] MEDS: cefTRIAXone 1,000 MG in sodium chloride 0.9% (plus) 50 ML 100 MG IV (12:43)
[2019-06-10 13:09] LABS: Lipase 641 U/L (13-60)
[2019-06-11] VITALS (10 sets, daily range): BP systolic 133–155; BP diastolic 82–99; PULSE 80–95; RESP 18–20; TEMP 36.7–37.4; O2SAT 90–96
[2019-06-11] MEDS: LORazepam 1 mg Tablet PO ×3 (01:53→18:50)
[2019-06-11] MEDS: oxyCODONE-APAP 5-325 mg Tablet 1 TAB PO ×4 (04:01→23:03)
[2019-06-11 06:15] LABS: Basophils % 0.3 %; Eosinophils # 0.5 10^3/uL (0.0-0.8); Eosinophils % 7.8 %; Hemoglobin 12.6 g/dL (11.5-15.3); Lymphocytes # 0.9 10^3/uL (0.8-4.8); Lymphocytes % 15.1 %; Mean Corpuscular HGB Conc 32.3 g/dL (30.0-36.0); Mean Corpuscular Hemoglobin 31.4 pg (28.0-34.0); Mean Corpuscular Volume 97.3 fL (81-99); Mean Platelet Volume 11.1 fL (7.4-10.4); Monocytes # 0.4 10^3/uL (0.2-0.9); Monocytes % 7.2 %; Neutrophils # 4.3 10^3/uL (1.8-7.7); Neutrophils % 69.3 %; Nucleated Red Blood Cells % 0 %; Platelet Count 142 10^3/cmm (130-400); Red Blood Count 4.01 10^6/uL (4.1-5.3); Red Cell Distribution Width 17.5 % (12.1-15.1); White Blood Count 6.2 10^3/uL (4.0-10.0)
[2019-06-11 06:41] LABS: Slide Review Slide Review Perform
[2019-06-11 07:04] LABS: Lipase 222 U/L (13-60)
[2019-06-11 08:08] LABS: Alanine Aminotransferase 22 U/L (0-33); Albumin Level 2.4 g/dL (3.5-5.2); Alkaline Phosphatase 108 IU/L (35-105); Anion Gap 12.7 (5-19); Aspartate Amino Transferase 19 U/L (0-32); Blood Urea Nitrogen 7 mg/dL (6-20); Calcium 8.9 mg/dL (8.5-10.5); Carbon Dioxide 25 mmol/L (22-29); Chloride 106 mmol/L (98-107); Globulin 3.1 g/dL (1.3-4.6); Glomerular Filtration Rate 90.5 mL/min (90-130); Glucose 102 mg/dL (65-115); Osmolality Calculated 286 mOsm/kg (285-295); Potassium 3.7 mmol/L (3.5-5.1); Sodium 140 mmol/L (136-145); Total Bilirubin 0.3 mg/dL (0.15-1.2); Total Protein 5.5 g/dL (6.6-8.7)
[2019-06-11] MEDS: heparin 5,000 unit/mL INJ 1 mL 5000 UNIT SUBCUT ×2 (08:21→19:27)
[2019-06-11] MEDS: citalopram 20 mg Tablet PO (08:21)
[2019-06-11] MEDS: pantoprazole DR 40 mg Tablet PO ×2 (08:22→18:50)
[2019-06-11] MEDS: amlodipine 5 mg Tablet PO (08:22)
[2019-06-11] MEDS: metoprolol tartrate 25 mg Tablet PO ×2 (08:22→18:50)
[2019-06-11] MEDS: morphine 4 mg/mL SDV 1 mL 1 MG IVP (13:48)
--- NOTE | 2019-06-11 16:17 | PM.PN ---
Subjective Subjective: Interval history: Patient reports that she continues to have epigastric pain which at times gets too severe. She tolerates liquid diet and wants to advance her diet if possible. Medications: Reviewed: Yes Vitals/I&O/Wt Last Vital Signs Temp 98.3 F 06/11/19 15:21 Pulse 94 06/11/19 15:21 Resp 18 06/11/19 15:21 BP 137/83 06/11/19 15:21 Pulse Ox 90 06/11/19 15:21 06/11/19 06/11/19 06/11/19 06:59 14:59 22:59 Intake Total 100 / 1520 1200 / 1200 Balance 100 / 1320 1200 / 1200 Physical Exam Const: COMMON NORMALS: no apparent distress and oriented x3 Resp: COMMON NORMALS: normal respiratory effort and clear to auscultation bilaterally AUSCULTATION: clear to auscultation bilaterally Cardio: COMMON NORMALS: regular rate, regular rhythm and S2 normal heart sound RATE: regular rate RHYTHM: regular rhythm HEART SOUNDS: S2 normal OTHER: No lower extremity edema GI: COMMON NORMALS: normal to inspection, nondistended, normoactive bowel sounds, soft to palpation and non-tender PALPATION: Yes soft and Yes tender (Epigastric area.) OTHER: Tender to palpation at epigastric area. No rebound tenderness or guarding. Neuro: COMMON NORMALS: oriented x3 and no focal motor deficits Data : 06/11/19 05:00 06/11/19 07:05 Micro: Microbiology 06/10/19 10:22 Blood Culture - Preliminary Blood NEGATIVE TO DATE 06/10/19 10:18 Blood Culture - Preliminary Blood NEGATIVE TO DATE 06/07/19 23:00 Urine Culture - Final Urine,Clean Catch A&P Assessment and plan (1) Acute pancreatitis: Status: Acute Code(s): K85.90 - Acute pancreatitis without necrosis or infection, unspecified (2) High anion gap metabolic acidosis: Status: Acute Code(s): E87.2 - Acidosis (3) Chronic post-traumatic stress disorder: Status: Acute Code(s): F43.12 - Post-traumatic stress disorder, chronic (4) Generalized anxiety disorder: Status: Acute Code(s): F41.1 - Generalized anxiety disorder (5) Major depressive disorder, recurrent episode, in partial remission with anxious distress: Status: Acute Code(s): F33.41 - Major depressive disorder, recurrent, in partial remission; F41.8 - Other specified anxiety disorders (6) Elevated serum hCG: Status: Acute Code(s): E34.9 - Endocrine disorder, unspecified Additional A&P Information 1. Acute pancreatitis Is trending down. Continue current monitoring and treatment. If pain improves we can advance patient's diet. 2. High anion gap metabolic acidosis resolved, likely as a result of improved hydration. 3. Elevated beta-hCG, in postmenopausal range. 4. Depression: Continue citalopram and zolpidem 5. HTN: Add amlodipine 5mg po qd 6. Hematuria with bacteriuria. Concerning for UTI. Will start patient on ceftriaxone patient. Discussed with patient to have outpatient follow-up with primary care physician to make sure hematuria resolves otherwise she will need to have further evaluation with cystoscopy. Full code DVT prophylaxis: Heparin s/c Attestations Medical Necessity Statement*: Patient with acute pancreatitis requires close inpatient monitoring and treatment. 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
[2019-06-12] VITALS (11 sets, daily range): BP systolic 99–147; BP diastolic 63–96; PULSE 79–91; RESP 16–20; TEMP 36.9–37.6; O2SAT 90–97
[2019-06-12] MEDS: LORazepam 1 mg Tablet PO ×2 (03:31→19:48)
[2019-06-12] MEDS: oxyCODONE-APAP 5-325 mg Tablet 1 TAB PO ×4 (03:31→15:32)
[2019-06-12] MEDS: citalopram 20 mg Tablet PO (05:19)
[2019-06-12] MEDS: amlodipine 5 mg Tablet PO (08:04)
[2019-06-12] MEDS: pantoprazole DR 40 mg Tablet PO ×2 (08:04→17:46)
[2019-06-12] MEDS: heparin 5,000 unit/mL INJ 1 mL 5000 UNIT SUBCUT (08:04)
[2019-06-12] MEDS: metoprolol tartrate 25 mg Tablet PO ×2 (08:04→17:46)
--- NOTE | 2019-06-12 13:18 | PC.NURSE ---
PATIENT CURRENTLY IN A FULL LIQUID DIET. IT WAS REPORTED TO NURSE BY BUDGET CONSULTANT THAT PATIENT WAS SEEN DOWNSTAIRS OFF UNIT WITH VISITORS EATING CHIPS. NONCOMPLIANCE WITH DIET ORDERS REPORTED TO DR. URBINA VIA VOALTE MESSENGER.
--- NOTE | 2019-06-12 15:04 | P.PN_ITS ---
Subjective Subjective: Interval history: Patient reports that she continues to have epigastric area abdominal pain which she rates 6-7 out of 10. She ate a sandwich last night and was able to hold it down. She is asking if we can advance her diet and I am concerned that patient continues to have pretty significant pain despite her lipase much improving. Vitals/I&O/Wt Last Vital Signs Temp 99.6 F 06/12/19 10:52 Pulse 85 06/12/19 10:52 Resp 18 06/12/19 11:58 BP 129/87 06/12/19 10:52 Pulse Ox 94 06/12/19 10:52 06/12/19 06/12/19 06/12/19 06:59 14:59 22:59 Intake Total 720 / 720 Balance 720 / 720 Physical Exam Const: COMMON NORMALS: no apparent distress and oriented x3 Resp: COMMON NORMALS: normal respiratory effort and clear to auscultation bilaterally AUSCULTATION: clear to auscultation bilaterally Cardio: COMMON NORMALS: regular rate, regular rhythm and S2 normal heart sound RATE: regular rate RHYTHM: regular rhythm HEART SOUNDS: S2 normal OTHER: No lower extremity edema GI: COMMON NORMALS: normal to inspection, nondistended, normoactive bowel sounds and soft to palpation PALPATION: Yes soft OTHER: Tender to palpat ion mostly in epigastric area. Neuro: COMMON NORMALS: oriented x3 and no focal motor deficits Data : 06/11/19 05:00 06/11/19 07:05 Micro: Microbiology 06/10/19 10:22 Blood Culture - Preliminary Blood NEGATIVE TO DATE 06/10/19 10:18 Blood Culture - Preliminary Blood NEGATIVE TO DATE A&P Assessment and plan (1) Acute pancreatitis: Status: Acute Code(s): K85.90 - Acute pancreatitis without necrosis or infection, unspecified (2) High anion gap metabolic acidosis: Status: Acute Code(s): E87.2 - Acidosis (3) Chronic post-traumatic stress disorder: Status: Acute Code(s): F43.12 - Post-traumatic stress disorder, chronic (4) Generalized anxiety disorder: Status: Acute Code(s): F41.1 - Generalized anxiety disorder (5) Major depressive disorder, recurrent episode, in partial remission with anxious distress: Status: Acute Code(s): F33.41 - Major depressive disorder, recurrent, in partial remission; F41.8 - Other specified anxiety disorders (6) Elevated serum hCG: Status: Acute Code(s): E34.9 - Endocrine disorder, unspecified Additional A&P Information 1. Acute pancreatitis H&P and imaging was reviewed. There is a concern for possible upper GI bleed and gastric inflammatory process especially in view of patient's previous history of partial gastrectomy. I will go ahead and proceed with EGD in the morning. Case discussed with Dr. Díaz. 2. High anion gap metabolic acidosis resolved, likely as a result of improved hydration. 3. Elevated beta-hCG, in postmenopausal range. 4. Depression: Continue citalopram and zolpidem 5. HTN: Add amlodipine 5mg po qd 6. Hematuria with bacteriuria. Concerning for UTI. Will start patient on ce ftriaxone patient. Discussed with patient to have outpatient follow-up with primary care physician to make sure hematuria resolves otherwise she will need to have further evaluation with cystoscopy. 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
[2019-06-12] MEDS: morphine 4 mg/mL SDV 1 mL 1 MG IVP (17:45)
[2019-06-12] MEDS: ketorolac 30 mg/mL INJ 15 MG IVP (19:48)
[2019-06-13] VITALS (9 sets, daily range): BP systolic 119–140; BP diastolic 17–98; PULSE 77–96; RESP 15–24; TEMP 36.3–37.2; O2SAT 91–99
[2019-06-13] MEDS: ketorolac 30 mg/mL INJ 15 MG IVP ×2 (04:27→13:19)
[2019-06-13] MEDS: LORazepam 1 mg Tablet PO ×2 (04:28→13:21)
[2019-06-13] MEDS: citalopram 20 mg Tablet PO (05:45)
--- NOTE | 2019-06-13 06:27 | PC.NURSE ---
pt refusing am labs today
[2019-06-13] MEDS: amlodipine 5 mg Tablet PO (08:00)
[2019-06-13] MEDS: heparin 5,000 unit/mL INJ 1 mL 5000 UNIT SUBCUT (08:00)
[2019-06-13] MEDS: metoprolol tartrate 25 mg Tablet PO (08:00)
[2019-06-13] MEDS: pantoprazole DR 40 mg Tablet PO (08:01)
[2019-06-13] MEDS: HYDROmorphone 1 mg/mL INJ 1 mL 0.5 MG IVP (10:06)
[2019-06-13] MEDS: sodium chloride 0.9% 1,000 ML 30 ML (11:34)
--- NOTE | 2019-06-13 11:43 | ANES.PREANE2 ---
Pre-Anesthetic Assessment Pre-Anesthetic Assessment: Height/Weight: Height 1.63 m Weight 86.183 kg Temp Pulse Resp BP Pulse Ox 98.3 F 77 18 140/84 95 06/13/19 11:18 06/13/19 11:18 06/13/19 11:18 06/13/19 11:18 06/13/19 11:18 Preop Diagnosis: n/v. upper GI bleed Proposed Procedure: Operation Date: 06/13/19 11:30 Proposed Procedures p EGD(Not Applicable) - Epifanio Díaz MD Was Beta Jesse taken within 24 hours: N/A Social: Social History: No alcohol and No tobacco Exam: Pre-Anes Outpt Exam: alert, oriented x 3, clear to auscultation bilaterally and regular rate & rhythm Airway: Submandibular: WNL Cervical ROM: WNL MP: 2 Dentition: False History/ROS: No significant history except as noted Pulmonary: Pulmonary: Asthma (albuterol as needed) CV/HEM: CV/HEM: HTN and Murmur : : None reported Hepatic: Hepatic: None reported GI: GI: GERD and PUD Metabolic: Metabolic: None reported Musc/skel: Musc/skel: Lower Back Pain (history of lower back surgeries) Neuropsych: Neuropsych: Anxiety and Depression Anesthetic Plan: ASA status: 2E Anesthesia: Anesthesia Evaluation and MAC Risk of > 500 ml blood loss (7ml/kg in children): No Meds/Allergies Current Medications: Current Medications Generic Name Dose Route Start Last Admin Trade Name Freq PRN Reason Stop Dose Admin Amlodipine Besylat e 5 mg 06/09/19 14:30 06/13/19 08:00 Norvasc PO 5 mg DAILY BONITA Administration Citalopram Hydrobr omide 20 mg 06/08/19 06:00 06/13/19 05:45 Celexa PO 20 mg QAM BONITA Administration Heparin Sodium (Be ef Lung) 5,000 unit 06/08/19 05:23 06/13/19 08:00 Heparin SUBCUT 5,000 unit Q12H BONITA Administration Sodium Chloride 1,000 mls @ 100 m ls/hr 06/09/19 14:30 06/12/19 19:44 Sodium Chloride 0.9% IV Not Given .Q10H BONITA Ketorolac Trometha mine 15 mg 06/08/19 17:52 06/13/19 04:27 Toradol IVP 06/13/19 17:59 15 mg Q6H PRN Administration pain Lorazepam 1 mg 06/12/19 19:17 06/13/19 04:28 Ativan PO 1 mg TID PRN Administration ANXIETY Metoprolol Tartrat e 25 mg 06/08/19 09:00 06/13/19 08:00 Lopressor PO 25 mg BID BONITA Administration Pantoprazole Sodiu m 40 mg 06/09/19 09:00 06/13/19 08:01 Protonix PO 40 mg BID BONITA Administration PFSH Anesthesia PFSH: Medical History Chronic post-traumatic stress disorder of child Generalized anxiety disorder Hypertension Major depressive disorder, recurrent episode, in partial remission with anxious distress Peptic ulcer disease Weight gain due to medication Surgical History H/O: hysterectomy History of partial gastrectomy Hx of cholecystectomy S/P appendectomy Social History Smoking and tobacco status: former smoker Alcohol intake: never Household members: children Housing: House Data Anesthesia CBC & Chem 7: 06/11/19 05:00 06/11/19 07:05 Cardiac Studies: No Data to Display
--- NOTE | 2019-06-13 12:04 | W.PM.OPSUD ---
Surgery/Procedure H&P Update DATE OF PROCEDURE: June 13, 2019 DATE H&P PERFORMED: 06/13/19 H&P UPDATE INFORMATION: I have reviewed H&P completed within last 30 days, I have examined patient prior to procedure and No changes to prior documentation PREOP DIAGNOSIS: n/v. upper GI bleed PLANNED PROCEDURE: Operation Date: 06/13/19 11:30 Proposed Procedures p EGD(Not Applicable) - Epifanio Díaz MD
--- NOTE | 2019-06-13 15:05 | P.DS_ITS ---
Discharge Providers Date of Admission: 06/08/19 17:50 Date of Discharge: June 13, 2019 Attending Provider at Admission: Mitul García MD Attending Provider at Discharge: Modesto Nolan MD Primary Care Provider: Rosi Shell NP Diagnoses at Discharge Discharge Diagnosis (1) Acute pancreatitis: Status: Acute (2) High anion gap metabolic acidosis: Status: Acute (3) Chronic post-traumatic stress disorder: Status: Acute (4) Generalized anxiety disorder: Status: Acute (5) Major depressive disorder, recurrent episode, in partial remission with anxious distress: Status: Acute (6) Elevated serum hCG: Status: Acute (7) PUD (peptic ulcer disease): Status: Acute Reason for Visit Reason for Visit: Reason For Visit: chest discomfort/ sob Hospital Course Discharge Summary: Patient presented with atypical chest pain and abdominal pain along with nausea and vomiting. She was found to have evidence of pancreatitis. Her lipase gradually improved but she continued to be symptomatic and was further evaluated with upper endoscopy showing evidence of large gastric ulcers at the GJ bypass anastomosis as well as wires from previous surgery sticking out in the lumen which were removed. PPI and Carafate was recommended which will be prescribed. Dr. Díaz wants to see patient in 4 weeks for follow-up and depending on patient's symptoms she may require repeat procedure. She is doing okay post procedure but reports that she continues to have epigastric area discomfort but feeling strong enough to be dismissed home. I will prescribe [employer] for several days along with high-dose PPI and Carafate. Physical Exam Const: COMMON NORMALS: no apparent distress and oriented x3 Resp: COMMON NORMALS: normal respiratory effort and clear to auscultation bilaterally AUSCULTATION: clear to auscultation bilaterally Cardio: COMMON NORMALS: regular rate, regular rhythm and S2 normal heart sound RATE: regular rate RHYTHM: regular rhythm HEART SOUNDS: S2 normal OTHER: No lower extremity edema GI: COMMON NORMALS: normal to inspection, nondistended, normoactive bowel sounds and soft to palpation PALPATION: Yes soft OTHER: Tender at epigastric area but appears to be better. Neuro: COMMON NORMALS: oriented x3 and no focal motor deficits Discharge Data Data Completed and Pending: Completed Studies During Hospitalization Category Date Time Status CT abdomen pelvis wo con [id number] Urge nt Cat Scan 06/08/19 05:[address] angio chest PE protcl [id number] Urge nt Cat Scan 06/08/19 Completed XR chest 1V tamy ble [id number] Stat Exams 06/07/19 22:22 Completed Pending at discharge Category Date Time Status Blood Culture AM LABS Lab 06/09/19 04:00 Results Complete Blood Co unt w/Auto AM LABS Lab 06/13/19 04:00 Ordered Complete Blood Co unt w/Auto AM LABS Lab 06/14/19 04:00 Ordered Complete Blood Co unt w/Auto AM LABS Lab 06/15/19 04:00 Ordered Comprehensive Met abolic Panel AM LA BS Lab 06/13/19 04:00 Ordered Comprehensive Met abolic Panel AM LA BS Lab 06/14/19 04:00 Ordered Comprehensive Met abolic Panel AM LA BS Lab 06/15/19 04:00 Ordered Lipase AM LABS Lab 06/13/19 04:00 Ordered Pathology: Surgic al [PTH] Routine Pth 06/13/19 12:37 Ordered Vitals: Last Vital Signs Temp 97.5 F L 06/13/19 12:48 Pulse 80 06/13/19 12:48 Resp 18 06/13/19 12:48 BP 122/98 06/13/19 12:48 Pulse Ox 99 06/13/19 12:48 Discharge Plan Discharge Patient Disposition: Home, Self-Care Condition: Stable Prescriptions: [place] [employer] 5-325 mg tablet 1 tab PO Q8H PRN (Reason: pain) Qty: 14 RF: 0 amlodipine 5 mg Tablet 5 mg PO DAILY Qty: 30 RF: 0 methylprednisolone [Medrol (Zachery)] 4 mg tablets,dose pack See Rx Instructions .ROUTE .COMPLEX Qty: 21 RF: 0 pantoprazole 40 mg Tablet,Delayed Release (Dr/Ec) 40 mg PO BID Qty: 60 RF: 0 sucralfate [Carafate] 1 gram tablet 1 gm PO TID 7 Days Qty: 21 RF: 0 Continued citalopram [Celexa] 20 mg tablet 20 mg PO .morning Qty: 30 RF: 4 lorazepam 1 mg tablet 1 mg PO TID PRN (Reason: anxiety) Qty: 90 RF: 4 zolpidem [Ambien] 10 mg tablet 10 mg PO .QHS Qty: 30 RF: 4 metoprolol tartrate 25 mg Tablet 25 mg PO BID Qty: 60 RF: 0 Discharge Orders: Discharge Order (Routine); Ordered 06/13/19 Ordered By: Modesto Nolan Referrals: Epifanio Díaz MD [Physician] - 1 month Rosi Shell NP [Primary Care Provider] - Discharge Diet: Soft Mechanical Discharge Activity: Increase activity as tolerated Activity Restrictions/Additional Instructions: Please call your doctor or present to emergency department if your condition worsens or you develop diarrhea, lightheadedness, fatigue or see blood in your stool or black stool. Please follow-up with Dr. Díaz in 4 weeks as you may require repeat upper en doscopy. 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
--- NOTE | 2019-06-13 15:30 | P.CONIM_ITS ---
Providers/Reason For Consult Consulting Physican/Specialty*: Dr. Nolan Reason for Consult*: Nausea and vomiting Attending Physician: Modesto Nolan MD Primary Care Provider: Rosi Shell NP History of Present Illness History of Present Illness Therese Schaefer is a 43 year old female who has been in the hospital for over a week with complaints of abdominal pain nausea and vomiting. She presented to the ER about a week ago and was being treated for possible pancreatitis and st eroids slightly elevated lipase associated with inflammation of the pancreas noted on the CT scan. She has had a prior gastric bypass for gastric ulcer. She states that her last EGD was many years ago. Her abdominal pain is mainly localized to the epigastric region and she has been having persistent nausea and vomiting. The pain does not radiate, not associate with food intake. Review of Systems General: Reports: 10 or more systems reviewed and unremarkable except in HPI and below Meds/Allergies Home Medications and Allergies Home Medications Medication Instructions Recorded Confirmed Type citalopram 20 mg tablet 20 mg PO .morning #30 tab 04/16/19 06/07/19 Rx lorazepam 1 mg tablet 1 mg PO TID PRN #90 tab 04/16/19 06/07/19 Rx zolpidem 10 mg tablet 10 mg PO .QHS #30 tab 04/16/19 06/07/19 Rx metoprolol tartrate 25 mg PO BID #60 tab 05/04/19 06/07/19 Rx methylprednisolone [Medrol (Zachery)] See Rx Instructions .ROUTE 06/08/19 Rx .COMPLEX #21 each amlodipine 5 mg PO DAILY #30 tab 06/13/19 Rx hydrocodone-acetaminophen [[place]] 1 tab PO Q8H PRN #14 tab 06/13/19 Rx pantoprazole 40 mg PO BID #60 tab 06/13/19 Rx sucralfate [Carafate] 1 gm PO TID 7 Days #21 tab 06/13/19 Rx Allergies Allergy/AdvReac Type Severity Reaction Status Date / Time baclofen Allergy Unknown Unknown Verified 04/16/19 08:04 codeine Allergy Unknown rash Verified 04/16/19 08:02 ondansetron [From Zofran] Allergy Unknown ALGY-Anaphy Verified 04/16/19 08:04 laxis prochlorperazine Allergy Unknown Unknown Verified 04/16/19 08:04 [From Compazine] metoclopramide [From Reglan] Allergy ALGY-Hives Verified 04/24/19 13:01 Current Medications Current Medications Generic Name Dose Route Start Last Admin Trade Name Freq PRN Reason Stop Dose Admin Amlodipine Besylate 5 mg 06/09/19 14:30 06/13/19 08:00 Norvasc PO 5 mg DAILY BONITA Administration Citalopram Hydrobromide 20 mg 06/08/19 06:00 06/13/19 05:45 Celexa PO 20 mg QAM BONITA Administration Heparin Sodium (Beef Lung) 5,000 unit 06/08/19 05:23 06/13/19 08:00 Heparin SUBCUT 5,000 unit Q12H BONITA Administration Sodium Chloride 1,000 mls @ 100 mls/hr 06/09/19 14:30 06/12/19 19:44 Sodium Chloride 0.9% IV Not Given .Q10H BONITA Ketorolac Tromethamine 15 mg 06/08/19 17:52 06/13/19 13:19 Toradol IVP 06/13/19 17:59 15 mg Q6H PRN Administration pain Lorazepam 1 mg 06/12/19 19:17 06/13/19 13:21 Ativan PO 1 mg TID PRN Administration ANXIETY Metoprolol Tartrate 25 mg 06/08/19 09:00 06/13/19 08:00 Lopressor PO 25 mg BID OBNITA Administration Pantoprazole Sodium 40 mg 06/09/19 09:00 06/13/19 08:01 Protonix PO 40 mg BID BONITA Administration PFSH Acute PFSH: Medical History Chronic post-traumatic stress disorder Generalized anxiety disorder Hypertension Major depressive disorder, recurrent episode, in partial remission with anxious distress Peptic ulcer disease PUD (peptic ulcer disease) Surgical History H/O: hysterectomy History of partial gastrectomy Hx of cholecystectomy S/P appendectomy Family History Mother CAD (coronary artery disease) Other Hypertension Social History Smoking and tobacco status: former smoker Alcohol intake: never Household members: children Housing: House Vitals/I&O/Wt Last Vital Signs Temp 97.5 F L 06/13/19 15:27 Pulse 80 06/13/19 15:27 Resp 18 06/13/19 15:27 BP 122/98 06/13/19 15:27 Pulse Ox 99 06/13/19 15:27 06/13/19 06/13/19 06/13/19 06:59 14:59 22:59 Intake Total 200 / 1500 250 / 250 Balance 200 / 1500 250 / 250 Physical Exam Narrative: EXAM NARRATIVE: HEENT: Normocephalic Eye: Sclera /conjunctiva normal Respiratory and chest: Bilateral clear breath sounds on auscultation Cardiovascular: Normal S1 and S2 heart sounds Abdomen: Soft to palpation, tender epigastric region Neurological: Oriented to place person and time Skin: Intact, no lesions appreciated on gross exam A&P Assessment and plan (1) PUD (peptic ulcer disease): 43-year-old female with persistent nausea and vomiting, history of partial gastrectomy/gastric bypass in the past Plan for EGD under MAC Procedure, risks, benefits and alternatives have been discussed with the patient who wishes to proceed with surgery. 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
== END 2019-06-13 16:01 | disposition home or self-care (01) | DRG 439 ==
LOC: ER 06-08 03:05 → MEDSURG 06-08 03:44
PROVIDERS: Student in an Organized Health Care Education/Training Program; Surgery; Admitting Provider Internal Medicine; Emergency Provider Emergency Medicine; PCP Nurse Practitioner Family; Visit Provider Internal Medicine
PROC: 0DJ08ZZ Inspection of Upper Intestinal Tract, Via Natural or Artificial Opening Endoscopic (ICD-10-PCS; CPT 43235; principal; 2019-06-13 11:30)
DX: K85.90 Acute pancreatitis without necrosis or infection, unspecified (principal); E87.2 Acidosis; F43.12 Post-traumatic stress disorder, chronic; F41.1 Generalized anxiety disorder; K25.9 Gastric ulcer, unspecified as acute or chronic, without hemorrhage or perforation; F33.41 Major depressive disorder, recurrent, in partial remission; F41.8 Other specified anxiety disorders; E34.9 Endocrine disorder, unspecified; E86.0 Dehydration; I10 Essential (primary) hypertension; R31.9 Hematuria, unspecified; K21.9 Gastro-esophageal reflux disease without esophagitis; Z87.891 Personal history of nicotine dependence; Z79.83 Long term (current) use of bisphosphonates
CPT/HCPCS: 12345; 36415; 36600; 43239; 71045; 71275; 74176; 80053; 80061; 80307; 81001; 82009; 82803; 83001; 83002; 83605; 83690; 83880; 84484; 84702; 84703; 85025; 85378; 87040; 87086; 87804; 88305; 93005; 96372; 96375; 99284; G0378; J0696; J1170; J1644; J1885; J2250; J2270; J2405; J2704; J2930; J3490; J7030; J7040; Q9967

== ENCOUNTER 2019-06-20 23:36 | Inpatient (IN) | payer SELFPAY ==
[2019-06-20 23:41] VITALS: BP 157/111; PULSE 120; RESP 18; TEMP 36.7; O2SAT 98; BMI 31.7
--- NOTE | 2019-06-20 23:54 | W.ED.ABDPA2 ---
Documented by User: LUCILLE Overton 06/21/19 17:49 HPI - Abdominal Pain General: Chief Complaint: Abdominal Pain Stated Complaint: abd pain/n/v Time Seen by Provider: 06/20/19 23:48 History of Present Illness: HPI narrative: Patient is a 43-year-old female who comes into the ED with abdominal pain, nausea and vomiting. Patient has a past medical history of pancreatitis. Symptoms started yesterday. Patient is also had a mild fever within the last 24 hours. She has not been able to eat or drink and keep anything down in the last 24 hours. She has had multiple episodes of emesis last 24 hours. Patient rates her abdominal pain a 10 out of 10. She describes the pain is in the epigastric region and radiates around to her back. She states this pain is very similar to her previous pancreatitis pain. Denies any blood in the emesis, diarrhea, constipation, blood in the stool, hematuria, dysuria. Associated Symptoms: Reports fever(s), nausea and vomiting; Denies chills, constipation, diarrhea, dysuria, hematochezia and hematuria Review of Systems Const: Reports: fever; Denies: chills or fatigue Eyes: Denies: change in vision or eye discomfort ENMT: Denies: throat pain, painful swallowing, nasal discharge or nasal congestion Card: Denies: chest pain, palpitations, edema, swelling of feet/ankles, shortness of breath on exertion or shortness of breath when lying down Resp: Denies: shortness of breath, productive cough or non-productive cough GI: Reports: abdominal pain, nausea and vomiting; Denies: diarrhea, constipation or blood in stool : Denies: flank pain, painful urination or blood in urine Musc: Denies: neck pain, back pain or extremity swelling Skin/Breast: Denies: rash or new lesion Neuro: Denies: headache, numbness in extremities or weakness in extremities PFSH ED PFSH: Medical History Chronic post-traumatic stress disorder Generalized anxiety disorder Hypertension Major depressive disorder, recurrent episode, in partial remission with anxious distress Peptic ulcer disease PUD (peptic ulcer disease) Surgical History H/O: hysterectomy History of partial gastrectomy Hx of cholecystectomy S/P appendectomy Family History Mother CAD (coronary artery disease) Other Hypertension Social History Smoking and tobacco status: former smoker Alcohol intake: never Household members: children Housing: House Physical Exam Const: COMMON NORMALS: oriented x3 HENMT: COMMON NORMALS: normocephalic HEAD & SCALP: normocephalic MOUTH: moist mucous membranes abnormal (mild dryness) THROAT: posterior oropharynx normal and uvula midline Eye: COMMON NORMALS: PERRL GENERAL EYE: normal appearance of both eyes PUPIL: Yes PERRL Neck/C-Spine: COMMON NORMALS: supple GENERAL: Yes normal visual inspection Resp: COMMON NORMALS: normal respiratory effort, no retractions, no use of accessory muscles and clear to auscultation bilaterally AUSCULTATION: clear to auscultation bilaterally Cardio: COMMON NORMALS: regular rate, regular rhythm, S1 normal heart sound, S2 normal heart sound, no gallops, no clicks, no murmurs and peripheral pulses 2+ throughout RATE: regular rate RHYTHM: regular rhythm HEART SOUNDS: S1 normal and S2 normal PERIPHERAL PULSES: pulses 2+ throughout GI: COMMON NORMALS: normal to inspection, nondistended, normoactive bowel sounds, soft to palpation and no masses PALPATION: Yes soft and Yes tender Details: other (epigastric region) : COMMON NORMALS: Yes no CVA tenderness BLADDER/KIDNEY EXAM: Yes no CVA tenderness Back/Pelvis: COMMON NORMALS: no CVA tenderness Extremity: COMMON NORMALS: normal to inspection and normal capillary refill Neuro: COMMON NORMALS: oriented x3 GAIT: Yes normal gait Skin: COMMON NORMALS: no rashes or lesions noted GENERAL SKIN EXAM: no rashes or lesions noted and dry skin Course Vital Signs: Vital signs: Vital Signs Temperature 98.5 F 06/21/19 15:39 Pulse Rate 100 06/21/19 15:39 Respiratory Rate 20 H 06/21/19 17:09 Blood Pressure 153/96 06/21/19 15:39 Pulse Oximetry 97 06/21/19 15:39 MDM - Abdominal Pain Lab Data: Attestation: I reviewed the patient's lab results. Labs: Lab Results 06/20/19 06/20/19 06/20/19 Range/Units 00:52 00:52 00:52 WBC 10.3 H (4.0-10.0) 10^3/ uL RBC 4.24 (4.1-5.3) 10^6/u L Hgb 13.2 (11.5-15.3) g/dL Hct 41.8 (37.0-47.0) % MCV 98.6 (81-99) fL MCH 31.1 (28.0-34.0) pg MCHC 31.6 (30.0-36.0) g/dL RDW 16.1 H (12.1-15.1) % Plt Count 486 H (130-400) 10^3/c mm MPV 8.6 (7.4-10.4) fL Neut % (Auto) 86.9 % Lymph % (Auto) 6.2 % [place] % (Auto) 4.6 % Eos % (Auto) 1.1 % Baso % (Auto) 0.7 % Neut # (Auto) 9.0 H (1.8-7.7) 10^3/u L Lymph # (Auto) 0.6 L (0.8-4.8) 10^3/u L [place] # (Auto) 0.5 (0.2-0.9) 10^3/u L Eos # (Auto) 0.1 (0.0-0.8) 10^3/u L Baso # (Auto) 0.1 (0.0-0.1) 10^3/u L Nucleated RBC % (a uto) 0 % Nucleated RBCs # 0.0 /100WBC Sodium 141 (136-145) mmol/L Potassium 3.6 (3.5-5.1) mmol/L Chloride 108 H (98-107) mmol/L Carbon Dioxide 13 L (22-29) mmol/L Anion Gap 23.6 H (5-19) BUN 16 (6-20) mg/dL Creatinine 1.2 H (0.5-0.9) mg/dL GFR Calculation 48.6 L (90-130) mL/min Glucose 96 (65-115) mg/dL Calculated Osmolal ity 288 (285-295) mOsm/k g Calcium 9.8 (8.5-10.5) mg/dL Total Bilirubin 0.3 (0.15-1.2) mg/dL AST 36 H (0-32) U/L ALT 29 (0-33) U/L Alkaline Phosphata se 114 H (35-105) IU/L Total Protein 6.3 L (6.6-8.7) g/dL Albumin 3.7 (3.5-5.2) g/dL Globulin 2.6 (1.3-4.6) g/dL Lipase 425 H (13-60) U/L HCG, Qual Negative (Negative) Discharge Plan Discharge Patient Disposition: Placed in Observation Admit Provider: Susanna Murphy Clinical Impression: Acute pancreatitis Qualifiers: Pancreatitis type: unspecified pancreatitis type Acute pancreatitis complication: no infection or necrosis Qualified Code(s): K85.90 - Acute pancreatitis without necrosis or infection, unspecified Condition: Stable Referrals: Rosi Shell, LEARNING AND DEVELOPMENT INTERN [Primary Care Provider] - Discharge Date/Time: 06/21/19 10:04 Sign Out Sign Out Data: Patient Sign Out occurred on 06/21/19 at 03:56. Patient's care was discussed, and care was transferred from to Lia May. 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 of Care Code ED Agricultural Service Worker for Chg Fwd Exam Comprehensive Documented by User: Lia May 06/21/19 05:19 HPI - Abdominal Pain General: Chief Complaint: Abdominal Pain Stated Complaint: abd pain/n/v Time Seen by Provider: 06/20/19 23:48 PFSH ED PFSH: Medical History Chronic post-traumatic stress disorder Generalized anxiety disorder Hypertension Major depressive disorder, recurrent episode, in partial remission with anxious distress Peptic ulcer disease PUD (peptic ulcer disease) Surgical History H/O: hysterectomy History of partial gastrectomy Hx of cholecystectomy S/P appendectomy Family History Mother CAD (coronary artery disease) Other Hypertension Social History Smoking and tobacco status: former smoker Alcohol intake: never Household members: children Housing: House Course Vital Signs: Vital signs: Vital Signs Temperature 98.5 F 06/21/19 15:39 Pulse Rate 100 06/21/19 15:39 Respiratory Rate 20 H 06/21/19 17:09 Blood Pressure 153/96 06/21/19 15:39 Pulse Oximetry 97 06/21/19 15:39 MDM - Abdominal Pain MDM Narrative: Medical decision making narrative: The case was reviewed with Dr. Ruiz. She agrees with admission and the patient will likely need to see the surgeon again. She will not have time to see the patient on that shift and asked that this be passed on to the day shift. I will notify the oncoming ER physician and he will notify the dayshift hospitalist on the case. Lab Data: Attestation: I reviewed the patient's lab results. Labs: Lab Results 06/20/19 06/20/19 06/20/19 Range/Units 00:52 00:52 00:52 WBC 10.3 H (4.0-10.0) 10^3/ uL RBC 4.24 (4.1-5.3) 10^6/u L Hgb 13.2 (11.5-15.3) g/dL Hct 41.8 (37.0-47.0) % MCV 98.6 (81-99) fL MCH 31.1 (28.0-34.0) pg MCHC 31.6 (30.0-36.0) g/dL RDW 16.1 H (12.1-15.1) % Plt Count 486 H (130-400) 10^3/c mm MPV 8.6 (7.4-10.4) fL Neut % (Auto) 86.9 % Lymph % (Auto) 6.2 % [place] % (Auto) 4.6 % Eos % (Auto) 1.1 % Baso % (Auto) 0.7 % Neut # (Auto) 9.0 H (1.8-7.7) 10^3/u L Lymph # (Auto) 0.6 L (0.8-4.8) 10^3/u L [place] # (Auto) 0.5 (0.2-0.9) 10^3/u L Eos # (Auto) 0.1 (0.0-0.8) 10^3/u L Baso # (Auto) 0.1 (0.0-0.1) 10^3/u L Nucleated RBC % (a uto) 0 % Nucleated RBCs # 0.0 /100WBC Sodium 141 (136-145) mmol/L Potassium 3.6 (3.5-5.1) mmol/L Chloride 108 H (98-107) mmol/L Carbon Dioxide 13 L (22-29) mmol/L Anion Gap 23.6 H (5-19) BUN 16 (6-20) mg/dL Creatinine 1.2 H (0.5-0.9) mg/dL GFR Calculation 48.6 L (90-130) mL/min Glucose 96 (65-115) mg/dL Calculated Osmolal ity 288 (285-295) mOsm/k g Calcium 9.8 (8.5-10.5) mg/dL Total Bilirubin 0.3 (0.15-1.2) mg/dL AST 36 H (0-32) U/L ALT 29 (0-33) U/L Alkaline Phosphata se 114 H (35-105) IU/L Total Protein 6.3 L (6.6-8.7) g/dL Albumin 3.7 (3.5-5.2) g/dL Globulin 2.6 (1.3-4.6) g/dL Lipase 425 H (13-60) U/L HCG, Qual Negative (Negative) Imaging Data ^: CT Abd/Pel: Radiologist's impression: [address] [place] [address] CT Scan Report Signed Patient: Therese Schaefer Unit #: [id number] : 1975 Age/Sex: 43 / F ADM Date: 06/20/19 Loc: ER Room/Bed: Attending Dr: Ordering Provider/Ordering MD: Jose Elias Mcdowell Date of Service: 06/21/19 Procedure(s): CT abdomen pelvis w con* [id number] Accession Number(s): [id number] Report Number: [id number] PROCEDURE INFORMATION: Exam: CT Abdomen And Pelvis With Contrast Exam date and time: 06/21/2019 3:23 AM Age: 43 years old Clinical indication: Nausea and vomiting; Abdominal pain; Generalized; Prior surgery; Surgery date: 6+ months; Surgery type: Appendectomy, cholecystectomy; Additional info: Abdominal pain, n/v, elevated lipase TECHNIQUE: Imaging protocol: Computed tomography of the abdomen and pelvis with intravenous contrast. Total DLP: 1106.17 mGy-cm Radiation optimization: All CT scans at this facility use at least one of these dose optimization techniques: automated exposure control; mA and/or kV adjustment per patient size (includes targeted exams where dose is matched to clinical indication); or iterative reconstruction. Contrast material: VISI; Contrast volume: 95 ml; Contrast route: 22G; COMPARISON: CT abdomen pelvis wo con [id number] 06/08/2019 7:43 AM FINDINGS: Lungs: The lung bases are clear. Mediastinum: There may be some mucosal/wall thickening involving the lower esophagus. This is nonspecific, but could represent evidence for esophagitis. Please correlate clinically. Liver: Unremarkable. Gallbladder and bile ducts: Prior cholecystectomy, no significant biliary tree dilation. Pancreas: Mild presumed inflammatory changes, mainly around the head and uncinate process of the pancreas, suspicious for acute pancreatitis. Please correlate with clinical and laboratory evaluation. Pancreatic duct upper normal, measuring around 3 mm. Trace amount of peripancreatic and retroperitoneal fluid. No pseudocyst. The pancreas appears to enhance homogeneously. Spleen: Unremarkable. Adrenals: Unremarkable. Kidneys and ureters: Unremarkable. Stomach and bowel: Suspect mildly thickened mucosa/wall in the duodenum. This is a nonspecific appearance, and could be transient on CT. The changes could be reactive, secondary to the adjacent presumed pancreatitis, but might also represent evidence for duodenitis or peptic ulcer disease. Please correlate clinically. Evidence for prior gastric surgery. There are no CT findings to strongly suggest diverticulitis. Appendix: Reportedly, there has been prior appendectomy. Intraperitoneal space: No free air, ascites, or bowel distention. Vasculature: No evidence for abdominal aortic aneurysm. Lymph nodes: No retroperitoneal adenopathy. Bladder: Unremarkable as visualized. Reproductive: Apparent prior hysterectomy. No definite ovarian/adnexal cyst or mass by CT. Bones/joints: Moderate degenerative disc changes at L5-S1. Soft tissues: No significant acute finding. CT/CT abdomen pelvis w con* [id number] IMPRESSION: 1. Findings suspicious for acute pancreatitis, see above details. 2. Possible thickened mucosa/wall in the duodenum, see above discussion. 3. No free air or bowel distention. No evidence for bowel obstruction. 4. Possibly some thickening of the lower esophagus, see above discussion. 5. Other findings discussed above. Radiation Dose CTDIVOL = (mGy): DLP = 1106.17 (mGy-cm) Dictated By: Alvin Rose MD Signed By: Alvin Rose MD Signed Date/Time: 06/21/19429 DD/ 8 Discharge Plan Discharge Patient Disposition: Placed in Observation Admit Provider: Susanna Murphy Clinical Impression: Acute pancreatitis Qualifiers: Pancreatitis type: unspecified pancreatitis type Acute pancreatitis complication: no infection or necrosis Qualified Code(s): K85.90 - Acute pancreatitis without necrosis or infection, unspecified Condition: Stable Referrals: Rosi Shell NP [Primary Care Provider] - Discharge Date/Time: 06/21/19 10:04 Sign Out Sign Out Data: Patient Sign Out occurred on 06/21/19 at 03:56. Patient's care was discussed, and care was transferred from to Lia May. 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 of Care Code ED Agricultural Service Worker for Kimberly Fwzhao Exam Comprehensive
[2019-06-21] VITALS (15 sets, daily range): BP systolic 104–153; BP diastolic 69–98; PULSE 89–109; RESP 16–20; TEMP 36.6–36.9; O2SAT 94–98
[2019-06-21] MEDS: sodium chloride 0.9% 1,000 ML 100 ML IV (00:56)
[2019-06-21] MEDS: sodium chloride 0.9% 1,000 ML 999 ML IV ×2 (00:56→03:32)
[2019-06-21 01:00] LABS: Basophils # 0.1 10^3/uL (0.0-0.1); Basophils % 0.7 %; Eosinophils # 0.1 10^3/uL (0.0-0.8); Eosinophils % 1.1 %; Hematocrit 41.8 % (37.0-47.0); Hemoglobin 13.2 g/dL (11.5-15.3); Lymphocytes # 0.6 10^3/uL (0.8-4.8); Lymphocytes % 6.2 %; Mean Corpuscular HGB Conc 31.6 g/dL (30.0-36.0); Mean Corpuscular Hemoglobin 31.1 pg (28.0-34.0); Mean Corpuscular Volume 98.6 fL (81-99); Mean Platelet Volume 8.6 fL (7.4-10.4); Monocytes # 0.5 10^3/uL (0.2-0.9); Monocytes % 4.6 %; Neutrophils % 86.9 %; Nucleated Red Blood Cells % 0 %; Platelet Count 486 10^3/cmm (130-400); Red Blood Count 4.24 10^6/uL (4.1-5.3); Red Cell Distribution Width 16.1 % (12.1-15.1); White Blood Count 10.3 10^3/uL (4.0-10.0)
[2019-06-21] MEDS: morphine 4 mg/mL SDV 1 mL IVP ×5 (01:05→21:09)
[2019-06-21] MEDS: promethazine 25 mg/mL SDV 1 mL IV (01:06)
[2019-06-21 01:11] LABS: HCG, Serum Qual Negative (Negative)
[2019-06-21 01:26] LABS: Alanine Aminotransferase 29 U/L (0-33); Albumin Level 3.7 g/dL (3.5-5.2); Alkaline Phosphatase 114 IU/L (35-105); Anion Gap 23.6 (5-19); Aspartate Amino Transferase 36 U/L (0-32); Blood Urea Nitrogen 16 mg/dL (6-20); Calcium 9.8 mg/dL (8.5-10.5); Carbon Dioxide 13 mmol/L (22-29); Chloride 108 mmol/L (98-107); Globulin 2.6 g/dL (1.3-4.6); Glomerular Filtration Rate 48.6 mL/min (90-130); Glucose 96 mg/dL (65-115); Osmolality Calculated 288 mOsm/kg (285-295); Potassium 3.6 mmol/L (3.5-5.1); Sodium 141 mmol/L (136-145); Total Bilirubin 0.3 mg/dL (0.15-1.2); Total Protein 6.3 g/dL (6.6-8.7)
[2019-06-21 02:02] LABS: Lipase 425 U/L (13-60)
--- NOTE | 2019-06-21 03:13 | CTR_ITS ---
PROCEDURE INFORMATION: Exam: CT Abdomen And Pelvis With Contrast Exam date and time: 06/21/2019 3:23 AM Age: 43 years old Clinical indication: Nausea and vomiting; Abdominal pain; Generalized; Prior surgery; Surgery date: 6+ months; Surgery type: Appendectomy, cholecystectomy; Additional info: Abdominal pain, n/v, elevated lipase TECHNIQUE: Imaging protocol: Computed tomography of the abdomen and pelvis with intravenous contrast. Total DLP: 1106.17 mGy-cm Radiation optimization: All CT scans at this facility use at least one of these dose optimization techniques: automated exposure control; mA and/or kV adjustment per patient size (includes targeted exams where dose is matched to clinical indication); or iterative reconstruction. Contrast material: VISI; Contrast volume: 95 ml; Contrast route: 22G; COMPARISON: CT abdomen pelvis wo con [id number] 06/08/2019 7:43 AM FINDINGS: Lungs: The lung bases are clear. Mediastinum: There may be some mucosal/wall thickening involving the lower esophagus. This is nonspecific, but could represent evidence for esophagitis. Please correlate clinically. Liver: Unremarkable. Gallbladder and bile ducts: Prior cholecystectomy, no significant biliary tree dilation. Pancreas: Mild presumed inflammatory changes, mainly around the head and uncinate process of the pancreas, suspicious for acute pancreatitis. Please correlate with clinical and laboratory evaluation. Pancreatic duct upper normal, measuring around 3 mm. Trace amount of peripancreatic and retroperitoneal fluid. No pseudocyst. The pancreas appears to enhance homogeneously. Spleen: Unremarkable. Adrenals: Unremarkable. Kidneys and ureters: Unremarkable. Stomach and bowel: Suspect mildly thickened mucosa/wall in the duodenum. This is a nonspecific appearance, and could be transient on CT. The changes could be reactive, secondary to the adjacent presumed pancreatitis, but might also represent evidence for duodenitis or peptic ulcer disease. Please correlate clinically. Evidence for prior gastric surgery. There are no CT findings to strongly suggest diverticulitis. Appendix: Reportedly, there has been prior appendectomy. Intraperitoneal space: No free air, ascites, or bowel distention. Vasculature: No evidence for abdominal aortic aneurysm. Lymph nodes: No retroperitoneal adenopathy. Bladder: Unremarkable as visualized. Reproductive: Apparent prior hysterectomy. No definite ovarian/adnexal cyst or mass by CT. Bones/joints: Moderate degenerative disc changes at L5-S1. Soft tissues: No significant acute finding. CT/CT abdomen pelvis w con* [id number] IMPRESSION: 1. Findings suspicious for acute pancreatitis, see above details. 2. Possible thickened mucosa/wall in the duodenum, see above discussion. 3. No free air or bowel distention. No evidence for bowel obstruction. 4. Possibly some thickening of the lower esophagus, see above discussion. 5. Other findings discussed above. Radiation Dose CTDIVOL = (mGy): DLP = 1106.17 (mGy-cm)
[2019-06-21] MEDS: HYDROmorphone 1 mg/mL INJ 1 mL 0.5 MG IVP (03:32)
[2019-06-21] MEDS: promethazine 25 mg/mL SDV 1 mL 12.5 MG IM (03:32)
[2019-06-21] MEDS: iodixanol 320 mg/mL 100mL Btl IV (03:56)
[2019-06-21] MEDS: HYDROmorphone 1 mg/mL INJ 1 mL IVP ×2 (04:37→05:41)
[2019-06-21] MEDS: pantoprazole 40 mg SDV 80 MG IVP (04:51)
[2019-06-21] MEDS: morphine 4 mg/mL SDV 1 mL 2 MG IVP (11:13)
--- NOTE | 2019-06-21 11:13 | PM.HP ---
Providers/Chief Complaint Admitting Physician: Susanna Murphy DO Primary Care Provider: Rosi Shell NP Chief Complaint: abd pain/n/v History of Present Illness Therese Schaefer is a 43 year old female that presented to the emergency department due to concern for abdominal pain, nausea vomiting. She reported that the pain is located in the center of her abdomen and radiates around to her ribs. She stated that she was discharged in improving and then gradually had onset of symptoms worsened over the past couple of days. She denies any black or tarry like stools, denies any bright red blood per rectum. She reports that she tried to stick to a bland diet. Patient reports recurrent nausea vomiting, is unable to keep some medications down. Review of Systems Const: Denies: fever or chills Eyes: Denies: change in vision ENMT: Denies: nasal congestion Card: Denies: chest pain, palpitations or edema Resp: Denies: shortness of breath, productive cough or coughing up blood GI: Reports: abdominal pain, nausea and vomiting; Denies: diarrhea, constipation, blood in stool or black tarry stool : Denies: painful urination or blood in urine Musc: Denies: extremity pain or muscle cramps Skin/Breast: Denies: rash or new lesion Neuro: Denies: headache or dizziness Psych: Denies: anxiety or depression Endo: Denies: excessive urination or hot flashes Gomez/Lymph: Denies: easy bruising or easy bleeding Medications/Allergies Home Medications Medication Instructions Recorded Confirmed Last Taken Type Ambien 10 mg PO BEDTIME 06/21/19 06/21/19 06/20/19 History Celexa 20 mg PO QAM 06/21/19 06/21/19 06/20/19 History olanzapine 10 mg PO QPM 06/21/19 06/21/19 06/20/19 History sucralfate 1 g PO TID 06/21/19 06/21/19 06/20/19 History topiramate [Topamax] 50 mg PO BEDTIME 06/21/19 06/21/19 06/20/19 History Allergies Allergy/AdvReac Type Severity Reaction Status Date / Time baclofen Allergy Unknown Unknown Verified 04/16/19 08:04 codeine Allergy Unknown rash Verified 04/16/19 08:02 ondansetron [From Zofran] Allergy Unknown ALGY-Anaphy Verified 04/16/19 08:04 laxis prochlorperazine Allergy Unknown Unknown Verified 04/16/19 08:04 [From Compazine] metoclopramide [From Reglan] Allergy ALGY-Hives Verified 04/24/19 13:01 PFSH Acute PFSH: Medical History Chronic post-traumatic stress disorder Generalized anxiety disorder Hypertension Major depressive disorder, recurrent episode, in partial remission with anxious distress Peptic ulcer disease PUD (peptic ulcer disease) Surgical History H/O: hysterectomy History of partial gastrectomy Hx of cholecystectomy S/P appendectomy Family History Mother CAD (coronary artery disease) Other Hypertension Social History Smoking and tobacco status: former smoker Alcohol intake: never Household members: children Housing: House Vitals/I&O/Wt Last Vital Signs Temp 97.9 F 06/21/19 10:21 Pulse 95 06/21/19 10:21 Resp 20 H 06/21/19 10:21 BP 137/86 06/21/19 10:21 Pulse Ox 97 06/21/19 10:21 06/20/19 06/21/19 06/21/19 22:59 06:59 14:59 Intake Total 1999 1000 / 1000 Balance 1999 1000 / 1000 Weight last 48 hrs Weight 83.915 kg Physical Exam Const: COMMON NORMALS: oriented x3 and alert GENERAL APPEARANCE: cooperative ORIENTATION/CONSCIOUSNESS: Yes awake, Yes oriented to person, Yes oriented to place and Yes oriented to time HENMT: COMMON NORMALS: normocephalic and head/scalp atraumatic HEAD & SCALP: normocephalic and atraumatic Eye: COMMON NORMALS: PERRL PUPIL: Yes PERRL Neck/C-Spine: COMMON NORMALS: supple GENERAL: Yes normal visual inspection Resp: COMMON NORMALS: normal respiratory effort and clear to auscultation bilaterally EFFORT & INSPECTION: Yes able to speak in complete sentences AUSCULTATION: clear to auscultation bilaterally, no rhonchi and no wheezes Cardio: COMMON NORMALS: regular rate, regular rhythm and no murmurs RATE: regular rate RHYTHM: regular rhythm GI: COMMON NORMALS: soft to palpation OTHER: Tenderness to palpation in the epigastric region, normal bowel sounds, no rigidity Extremity: COMMON NORMALS: no clubbing, cyanosis or edema and no calf tenderness Neuro: COMMON NORMALS: oriented x3, CN's II-XII intact bilaterally, moves all extremities and no focal motor deficits SENSORIUM/ORIENTATION: Yes alert, Yes oriented to person, Yes oriented to place and Yes oriented to time SPEECH: speech normal Psych: COMMON NORMALS: mental status grossly normal and cooperative Skin: COMMON NORMALS: no rashes or lesions noted GENERAL SKIN EXAM: no rashes or lesions noted Data : 06/20/19 00:52 06/20/19 00:52 A&P Assessment and plan (1) PUD (peptic ulcer disease): Continue on IV Protonix every 12 hours. Patient had recent EGD earlier this month which showed 2 cm ulceration Continue on Carafate N.p.o. status Status: Acute Code(s): K27.9 - Peptic ulcer, site unspecified, unspecified as acute or chronic, without hemorrhage or perforation (2) Acute pancreatitis: CT findings with acute pancreatitis. Only mild elevation in lipase. IV fluids and n.p.o. status Lipid panel and triglyceride level evaluated Patient is on olanzapine 10 mg at bedtime, consider bringing off of this medication if problem with recurrent pancreatitis as it can contribute to pancreatitis. Status: Acute Qualifiers: Acute pancreatitis complication: no infection or necrosis Pancreatitis type: unspecified pancreatitis type Qualified Code(s): K85.90 - Acute pancreatitis without necrosis or infection, unspecified Code(s): K85.90 - Acute pancreatitis without necrosis or infection, unspecified Additional A&P Information Hypertension: Continue home metoprolol, hold amlodipine at this time and consider restarting based on blood pressure readings Anxiety: Continue home lorazepam 3 times a day as needed Depression: Continue home Celexa Insomnia: Continue home Ambien and Topamax DVT prophylaxis: SCDs, no pharmacologic prophylaxis due to recent EGD finding of ulceration, although hemoglobin stable at this time Diet: N.p.o. CODE STATUS: Full code Attestations Medical Necessity Statement*: Hospitalization due to concern for abdominal pain with acute pancreatitis. Expected stay greater than 2 midnights 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 Purse Seiner for Chg Fwd Exam Comprehensive Diagnoses PUD (peptic ulcer disease) K27.9 Acute pancreatitis K85.90 Acute pancreatitis complication: no infection or necrosis Pancreatitis type: unspecified pancreatitis type
[2019-06-21] MEDS: LORazepam 1 mg Tablet PO ×2 (12:27→19:33)
[2019-06-21] MEDS: sucralfate 1 gm Tablet PO ×2 (14:05→19:33)
[2019-06-21] MEDS: ketorolac 30 mg/mL INJ IM (15:08)
[2019-06-21] MEDS: lactated ringers 1,000 ML 150 ML IV ×2 (16:58→23:06)
[2019-06-21] MEDS: pantoprazole 40 mg SDV IVP (16:59)
[2019-06-21] MEDS: metoprolol tartrate 25 mg Tablet PO (17:10)
[2019-06-21] MEDS: OLANZapine 10 mg TABLET PO (17:10)
[2019-06-21] MEDS: topiramate 25 mg Tablet 50 MG PO (19:33)
[2019-06-21 19:55] LABS: Add Urine Microscopic? YES; Bilirubin Urine Neg (NEGATIVE); Blood Urine Neg (Negative); Glucose Urine UA Norm (Normal); Ketones Urine 1+ (Negative); Leukocyte Esterase Urine Negative (Negative); Nitrate Urine Negative (Negative); Protein Urine Neg (Negative); Specific Gravity, Urine 1.015 (1.005-1.030); Urine Appearance SL Hazy (CLEAR); Urine Color Yellow (Yellow); Urobilinogen Urine Norm (Negative); pH Urine 5 (5-7)
[2019-06-21 20:00] LABS: Bacteria Urine TRACE; Mucus Urine TRACE; Squamous Epithelial Cell Urine 15-25 (0-5)
[2019-06-22] VITALS (11 sets, daily range): BP systolic 102–142; BP diastolic 62–87; PULSE 73–90; RESP 16–19; TEMP 36.6–37.2; O2SAT 94–97
[2019-06-22] MEDS: morphine 4 mg/mL SDV 1 mL IVP ×6 (01:05→20:29)
[2019-06-22] MEDS: citalopram 20 mg Tablet PO (04:59)
[2019-06-22] MEDS: pantoprazole 40 mg SDV IVP ×2 (04:59→17:32)
[2019-06-22] MEDS: LORazepam 1 mg Tablet PO ×3 (05:05→20:31)
[2019-06-22] MEDS: lactated ringers 1,000 ML 150 ML IV ×3 (05:05→19:08)
[2019-06-22 06:25] LABS: Basophils % 1.2 %; Eosinophils # 0.3 10^3/uL (0.0-0.8); Eosinophils % 10.2 %; Hemoglobin 9.8 g/dL (11.5-15.3); Lymphocytes # 0.6 10^3/uL (0.8-4.8); Lymphocytes % 23.8 %; Mean Corpuscular HGB Conc 29.7 g/dL (30.0-36.0); Mean Corpuscular Hemoglobin 31.5 pg (28.0-34.0); Mean Corpuscular Volume 106.1 fL (81-99); Monocytes # 0.3 10^3/uL (0.2-0.9); Monocytes % 10.5 %; Neutrophils # 1.4 10^3/uL (1.8-7.7); Neutrophils % 53.9 %; Nucleated Red Blood Cells % 0 %; Platelet Count 205 10^3/cmm (130-400); Red Blood Count 3.11 10^6/uL (4.1-5.3); Red Cell Distribution Width 16.5 % (12.1-15.1); White Blood Count 2.6 10^3/uL (4.0-10.0)
[2019-06-22 06:41] LABS: Alanine Aminotransferase 56 U/L (0-33); Albumin Level 2.6 g/dL (3.5-5.2); Alkaline Phosphatase 117 IU/L (35-105); Anion Gap 11.6 (5-19); Aspartate Amino Transferase 89 U/L (0-32); Blood Urea Nitrogen 6 mg/dL (6-20); Calcium 8.4 mg/dL (8.5-10.5); Carbon Dioxide 22 mmol/L (22-29); Chloride 111 mmol/L (98-107); Glomerular Filtration Rate 90.5 mL/min (90-130); Glucose 95 mg/dL (65-115); Osmolality Calculated 288 mOsm/kg (285-295); Potassium 3.6 mmol/L (3.5-5.1); Sodium 141 mmol/L (136-145); Total Bilirubin 0.3 mg/dL (0.15-1.2); Total Protein 4.6 g/dL (6.6-8.7)
[2019-06-22] MEDS: metoprolol tartrate 25 mg Tablet PO ×2 (07:59→17:39)
[2019-06-22] MEDS: sucralfate 1 gm Tablet PO ×3 (08:00→20:29)
--- NOTE | 2019-06-22 15:21 | PC.CHAP ---
Pastoral Care Encounter/Spiritual Assessment Type of Contact [] Declined facility attendant visit [] Patient/Family/Request visit [] Outpatient visit [] Follow-up visit [] Physician referral [] Code/Alert [X] Routine visit [] Staff referral [] Actively dying [] Patient sleeping [] Family support [] [] Out of room [] Palliative care [] [] Receiving care in room [] Pre-surgical visit [] Trauma [] Long length of stay [] ICU visit [] Other: Relational/Emotional Strength [] Patient feels connected with others/family/visitors/staff [] Distress [] Loneliness/isolation [] Abandonment Spirituality of Patient [] Person of Teresa [] Attends Orthodoxy of their Teresa [] Believes in Prayer [] Reads Bible or Christianity materials [] There are Spiritual issues to be addressed Carnival Worker Interventions [X] Prayer [] Active listening [] Non-anxious presence [] Spiritual/emotional support [] Crisis/trauma care [] Spiritual counseling [] Bereavement support [] Provided bereavement packet [] Provided Bible/devotional materials [] Provided toy/stuffed animal, coloring book to patient or family member [] Provided Communion [] Anointing/Export [] Salvation [] Completed spiritual assessment [] Other: Impact on Illness or Injury [] Angry [] Fearful [] Anxious [] Often cries [] Exhaustion [] Unable to work [] Unable to attend pentecostal [] Unable to walk/stand [] Unable to read [] Unable to drive [] Unable to eat/drink [] Unable to sleep [] Unable to be with family [] Patient intubated [] Other: Summary Time spent with patient
--- NOTE | 2019-06-22 15:57 | P.PN_ITS ---
Subjective Subjective: Interval history: Chart reviewed, labs noted, had 900 mL urine output overnight, NPO. VSS. Still has significant nausea, no vomiting, abdominal discomfort, primarily epigastric and right upper quadrant. Requesting ice chips as her mouth is quite dry. Medications: Reviewed: Yes Medication Review Details: Active Medications Generic Name Dose Route Start Last Admin Trade Name Freq PRN Reason Stop Dose Admin Acetaminophen 650 mg 06/21/19 11:17 Tylenol PO Q6H PRN Mild/Mod Pain Or Temp >/= 101 Citalopram Hydrobr omide 20 mg 06/22/19 06:00 06/22/19 04:59 Celexa PO 20 mg QAM BONITA Administration Lactated Ringer's 1,000 mls @ 150 m ls/hr 06/21/19 11:30 06/22/19 12:37 Lactated Ringers IV 150 mls/hr .Q6H40M BONITA Administration Lorazepam 1 mg 06/21/19 11:12 06/22/19 12:37 Ativan PO 1 mg TID PRN Administration anxiety Metoprolol Tartrat e 25 mg 06/21/19 18:00 06/22/19 07:59 Lopressor PO 25 mg BID BONITA Administration Morphine Sulfate 4 mg 06/21/19 08:55 06/22/19 12:13 Morphine IVP 4 mg Q4H PRN Administration SEVERE PAIN Morphine Sulfate 4 mg 06/21/19 10:34 Morphine IVP Q4H PRN SEVERE PAIN Naloxone HCl 0.1 mg 06/21/19 11:17 Narcan IVP Q2M PRN OPIATERV Olanzapine 10 mg 06/21/19 18:00 06/21/19 17:10 Zyprexa PO 10 mg QPM BONITA Administration Pantoprazole Sodiu m 40 mg 06/21/19 11:15 06/22/19 04:59 Protonix IVP 40 mg Q12H BONITA Administration Sucralfate 1 gm 06/21/19 15:00 06/22/19 15:43 Carafate PO 1 gm TID BONITA Administration Topiramate 50 mg 06/21/19 21:00 06/21/19 19:33 Topamax PO 50 mg BEDTIME BONITA Administration Zolpidem Tartrate 10 mg 06/21/19 21:00 06/21/19 19:33 Ambien PO 10 mg BEDTIME BONITA Administration baclofen Allergy (Unknown, Verified 04/16/19 08:04) Unknown codeine Allergy (Unknown, Verified 04/16/19 08:02) rash ondansetron [From Zofran] Allergy (Unknown, Verified 04/16/19 08:04) ALGY-Anaphylaxis prochlorperazine [From Compazine] Allergy (Unknown, Verified 04/16/19 08:04) Unknown metoclopramide [From Reglan] Allergy (Verified 04/24/19 13:01) ALGY-Hives Vitals/I&O/Wt Last Vital Signs Temp 99.0 F 06/22/19 15:15 Pulse 75 06/22/19 15:15 Resp 16 06/22/19 15:15 BP 123/81 06/22/19 15:15 Pulse Ox 95 06/22/19 15:15 06/22/19 06/22/19 06/22/19 06:59 14:59 22:59 Intake Total 2057.5 / 3057.5 1000 / 1000 Output Total 900 / 900 Balance 1157.5 / 2157.5 1000 / 1000 Weight last 48 hrs Weight 84.482 kg Weight 83.915 kg Physical Exam Const: COMMON NORMALS: no apparent distress and oriented x3 GENERAL APPEARANCE: cooperative and comfortable NUTRITIONAL APPEARANCE: obese centrally obese ORIENTATION/CONSCIOUSNESS: Yes awake HENMT: COMMON NORMALS: normocephalic, head/scalp atraumatic and hearing grossly normal bilaterally HEAD & SCALP: normocephalic and atraumatic MOUTH: moist mucous membranes abnormal Details: parched Eye: COMMON NORMALS: PERRL, EOMs intact bilaterally and conjunctivae normal CONJUNCTIVA: Yes conjunctivae normal PUPIL: Yes PERRL Neck/C-Spine: COMMON NORMALS: full ROM GENERAL: Yes normal visual inspection and Yes trachea midline Resp: COMMON NORMALS: normal respiratory effort, no retractions, no use of accessory muscles and clear to auscultation bilaterally EFFORT & INSPECTION: Yes able to speak in complete sentences, Yes symmetric chest movement and No tachypneic AUSCULTATION: clear to auscultation bilaterally Cardio: COMMON NORMALS: regular rate, regular rhythm, S1 normal heart sound, S2 normal heart sound and no murmurs RATE: regular rate RHYTHM: regular rhythm HEART SOUNDS: S1 normal and S2 normal GI: COMMON NORMALS: normal to inspection, nondistended, normoactive bowel sounds and soft to palpation INSPECTION: Yes central obesity PALPATION: Yes soft, Yes tender (Epigastric and right upper quadrant), No guarding and No rigid Extremity: COMMON NORMALS: normal to inspection, full ROM and no clubbing, cyanosis or edema; negative for no pedal edema Neuro: COMMON NORMALS: oriented x3, moves all extremities, no focal motor deficits and no sensory deficits noted Psych: COMMON NORMALS: mental status grossly normal, thought process normal, cooperative, affect normal and speech normal SPEECH: Yes normal speech THOUGHT PROCESS: normal thought process Skin: COMMON NORMALS: no rashes or lesions noted, no jaundice, no petechiae and no mottling GENERAL SKIN EXAM: no rashes or lesions noted Data : 06/22/19 05:56 06/22/19 05:56 A&P Assessment and plan (1) Acute pancreatitis: -noted findings consistent with acute pancreatitis on CT of the abdomen and pelvis, had a similar episode earlier this month that required hospitalization. Lipase noted at 425. No pseudocyst on imaging -Pain control, bowel rest, IV fluid hydration, antiemetics as needed -Had lipid panel done earlier this month, within normal limits Status: Acute Qualifiers: Acute pancreatitis complication: no infection or necrosis Pancreatitis type: unspecified pancreatitis type Qualified Code(s): K85.90 - Acute pancreatitis without necrosis or infection, unspecified Code(s): K85.90 - Acute pancreatitis without necrosis or infection, unspecified (2) PUD (peptic ulcer disease): -Had EGD done on 06/13/[address] 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; final pathology pending but prelim results show ulceration with adjacent degenerating atypical cells -Continue PPI IV twice daily, Carafate -Noted significant drop in hemoglobin since discharge from 13.2-9.8, continue to monitor hemoglobin closely -Vital signs stable, continue to monitor -Pain control, antiemetics as needed Status: Acute Code(s): K27.9 - Peptic ulcer, site unspecified, unspecified as acute or chronic, without hemorrhage or perforation Additional A&P Information -HTN; continue oral antihypertensives, continue to monitor vital signs -Chronic diastolic CHF; Echo: EF=65%, no RWMA; no acute exacerbation -PTSD, anxiety, depression; f/u with psychiatry, continue meds -Obesity: BMI-32 kg/m2 -Noted elevated liver function tests, continue to trend; status post cholecystectomy, unremarkable liver, no significant biliary dilatation -NPO except for ice chips -GI ppx with PPI -DVT ppx with SCDs, no AC due to bleeding risk from PUD -Dispo: home -Code status: FULL code Attestations Medical Necessity Statement*: Patient requires hospitalization for continued management of peptic ulcer disease and acute pancreatitis, currently on IV fluid hydration, bowel rest. Time Spent in Patient Care: Greater than 35 minutes (>than 50% of time spent in counselling and/or direct pt care on unit) . 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 Bonding Equipment Operator for Chg Fwd Exam Comprehensive Diagnoses Acute pancreatitis K85.90 Acute pancreatitis complication: no infection or necrosis Pancreatitis type: unspecified pancreatitis type PUD (peptic ulcer disease) K27.9
[2019-06-22] MEDS: OLANZapine 10 mg TABLET PO (17:39)
[2019-06-22] MEDS: topiramate 25 mg Tablet 50 MG PO (20:30)
[2019-06-23] VITALS (12 sets, daily range): BP systolic 117–133; BP diastolic 69–85; PULSE 68–78; RESP 14–19; TEMP 36.4–36.8; O2SAT 94–97; BMI 31.9
[2019-06-23] MEDS: morphine 4 mg/mL SDV 1 mL IVP ×6 (00:37→21:32)
[2019-06-23] MEDS: lactated ringers 1,000 ML 150 ML IV ×4 (02:36→21:32)
[2019-06-23] MEDS: pantoprazole 40 mg SDV IVP ×2 (04:22→17:12)
[2019-06-23] MEDS: citalopram 20 mg Tablet PO (04:39)
[2019-06-23] MEDS: LORazepam 1 mg Tablet PO ×3 (04:39→20:13)
[2019-06-23 06:02] LABS: Basophils % 0.9 %; Eosinophils # 0.4 10^3/uL (0.0-0.8); Eosinophils % 17.7 %; Hematocrit 31.7 % (37.0-47.0); Hemoglobin 9.7 g/dL (11.5-15.3); Lymphocytes # 0.6 10^3/uL (0.8-4.8); Lymphocytes % 28.4 %; Mean Corpuscular HGB Conc 30.6 g/dL (30.0-36.0); Mean Corpuscular Hemoglobin 31.4 pg (28.0-34.0); Mean Corpuscular Volume 102.6 fL (81-99); Mean Platelet Volume 9.5 fL (7.4-10.4); Monocytes # 0.2 10^3/uL (0.2-0.9); Monocytes % 10.2 %; Neutrophils # 0.9 10^3/uL (1.8-7.7); Neutrophils % 42.3 %; Nucleated Red Blood Cells % 0 %; Platelet Count 170 10^3/cmm (130-400); Red Blood Count 3.09 10^6/uL (4.1-5.3); Red Cell Distribution Width 16.3 % (12.1-15.1); White Blood Count 2.2 10^3/uL (4.0-10.0)
[2019-06-23 06:30] LABS: Alanine Aminotransferase 51 U/L (0-33); Albumin Level 2.4 g/dL (3.5-5.2); Alkaline Phosphatase 105 IU/L (35-105); Anion Gap 12.4 (5-19); Aspartate Amino Transferase 64 U/L (0-32); Blood Urea Nitrogen 4 mg/dL (6-20); Calcium 8.1 mg/dL (8.5-10.5); Carbon Dioxide 22 mmol/L (22-29); Chloride 111 mmol/L (98-107); Globulin 1.9 g/dL (1.3-4.6); Glomerular Filtration Rate 77.6 mL/min (90-130); Glucose 82 mg/dL (65-115); Lipase 110 U/L (13-60); Osmolality Calculated 289 mOsm/kg (285-295); Potassium 3.4 mmol/L (3.5-5.1); Sodium 142 mmol/L (136-145); Total Bilirubin 0.3 mg/dL (0.15-1.2); Total Protein 4.3 g/dL (6.6-8.7)
[2019-06-23] MEDS: sucralfate 1 gm Tablet PO ×3 (08:50→20:13)
[2019-06-23] MEDS: metoprolol tartrate 25 mg Tablet PO ×2 (08:50→17:12)
[2019-06-23] MEDS: acetaminophen 325 mg Tablet 650 MG PO (08:50)
--- NOTE | 2019-06-23 12:06 | P.PN_ITS ---
Subjective Subjective: Interval history: AM labs noted, lipase and LFTs trending down. Had 500 mL urine output overnight. VSS. Remains on sips and chips, otherwise NPO. Resting in bed, still quite uncomfortable, some nausea, no vomiting. Discussed need to continue NPO with ice chips for now which she is agreeable to. Medications: Reviewed: Yes Medication Review Details: Active Medications Generic Name Dose Route Start Last Admin Trade Name Freq PRN Reason Stop Dose Admin Acetaminophen 650 mg 06/21/19 11:17 06/23/19 08:50 Tylenol PO 650 mg Q6H PRN Administration Mild/Mod Pain Or Temp >/= 101 Citalopram Hydrobr omide 20 mg 06/22/19 06:00 06/23/19 04:39 Celexa PO 20 mg QAM BONITA Administration Lactated Ringer's 1,000 mls @ 150 m ls/hr 06/21/19 11:30 06/23/19 10:44 Lactated Ringers IV 150 mls/hr .Q6H40M BONITA Administration Lorazepam 1 mg 06/21/19 11:12 06/23/19 04:39 Ativan PO 1 mg TID PRN Administration anxiety Metoprolol Tartrat e 25 mg 06/21/19 18:00 06/23/19 08:50 Lopressor PO 25 mg BID BONITA Administration Morphine Sulfate 4 mg 06/21/19 08:55 06/23/19 09:33 Morphine IVP 4 mg Q4H PRN Administration SEVERE PAIN Morphine Sulfate 4 mg 06/21/19 10:34 Morphine IVP Q4H PRN SEVERE PAIN Naloxone HCl 0.1 mg 06/21/19 11:17 Narcan IVP Q2M PRN OPIATERV Olanzapine 10 mg 06/21/19 18:00 06/22/19 17:39 Zyprexa PO 10 mg QPM BONITA Administration Pantoprazole Sodiu m 40 mg 06/21/19 11:15 06/23/19 04:22 Protonix IVP 40 mg Q12H BONITA Administration Sucralfate 1 gm 06/21/19 15:00 06/23/19 08:50 Carafate PO 1 gm TID BONITA Administration Topiramate 50 mg 06/21/19 21:00 06/22/19 20:30 Topamax PO 50 mg BEDTIME BONITA Administration Zolpidem Tartrate 10 mg 06/21/19 21:00 06/22/19 20:30 Ambien PO 10 mg BEDTIME BONITA Administration baclofen Allergy (Unknown, Verified 04/16/19 08:04) Unknown codeine Allergy (Unknown, Verified 04/16/19 08:02) rash ondansetron [From Zofran] Allergy (Unknown, Verified 04/16/19 08:04) ALGY-Anaphylaxis prochlorperazine [From Compazine] Allergy (Unknown, Verified 04/16/19 08:04) Unknown metoclopramide [From Reglan] Allergy (Verified 04/24/19 13:01) ALGY-Hives Vitals/I&O/Wt Last Vital Signs Temp 97.7 F 06/23/19 11:31 Pulse 71 06/23/19 11:31 Resp 18 06/23/19 11:31 BP 132/80 06/23/19 11:31 Pulse Ox 96 06/23/19 11:31 06/22/19 06/23/19 06/23/19 22:59 06:59 14:59 Intake Total 1037.5 / 2037.5 1060 / 3097.5 1000 / 1000 Output Total 500 / 500 Balance 1037.5 / 2037.5 560 / 2597.5 1000 / 1000 Weight last 48 hrs Weight 84.482 kg Weight 84.482 kg Physical Exam Const: COMMON NORMALS: no apparent distress and oriented x3 GENERAL APPEARANCE: cooperative and comfortable NUTRITIONAL APPEARANCE: obese centr ally obese ORIENTATION/CONSCIOUSNESS: Yes awake HENMT: COMMON NORMALS: normocephalic, head/scalp atraumatic and hearing grossly normal bilaterally HEAD & SCALP: normocephalic and atraumatic MOUTH: moist mucous membranes abnormal Details: parched Eye: COMMON NORMALS: PERRL, EOMs intact bilaterally and conjunctivae normal CONJUNCTIVA: Yes conjunctivae normal PUPIL: Yes PERRL Neck/C-Spine: COMMON NORMALS: full ROM GENERAL: Yes normal visual inspection and Yes trachea midline Resp: COMMON NORMALS: normal respiratory effort, no retractions, no use of accessory muscles and clear to auscultation bilaterally EFFORT & INSPECTION: Yes able to speak in complete sentences, Yes symmetric chest movement and No tachypneic AUSCULTATION: clear to auscultation bilaterally Cardio: COMMON NORMALS: regular rate, regular rhythm, S1 normal heart sound, S2 normal heart sound and no murmurs RATE: regular rate RHYTHM: regular rhythm HEART SOUNDS: S1 normal and S2 normal GI: COMMON NORMALS: normal to inspection, nondistended, normoactive bowel sounds and soft to palpation INSPECTION: Yes central obesity PALPATION: Yes soft, Yes tender (Epigastric and right upper quadrant), No guarding and No rigid Extremity: COMMON NORMALS: normal to inspection, full ROM and no clubbing, cyanosis or edema; negative for no pedal edema Neuro: COMMON NORMALS: oriented x3, moves all extremities, no focal motor deficits and no sensory deficits noted Psych: COMMON NORMALS: mental status grossly normal, thought process normal, cooperative, affect normal and speech normal SPEECH: Yes normal speech THOUGHT PROCESS: normal thought process Skin: COMMON NORMALS: no rashes or lesions noted, no jaundice, no petechiae and no mottling GENERAL SKIN EXAM: no rashes or lesions noted Data : 06/23/19 05:20 06/23/19 05:20 A&P Assessment and plan (1) Acute pancreatitis: -noted findings consistent with acute pancreatitis on CT of the abdomen and pelvis, had a similar episode earlier this month that required hospitalization. -Lipase trending down (425->110). No pseudocyst on imaging -Pain control, bowel rest, IV fluid hydration, antiemetics as needed -Had lipid panel done earlier this month, within normal limits Status: Acute Qualifiers: Acute pancreatitis complication: no infection or necrosis Pancreatitis type: unspecified pancreatitis type Qualified Code(s): K85.90 - Acute pancreati tis without necrosis or infection, unspecified Code(s): K85.90 - Acute pancreatitis without necrosis or infection, unspecified (2) PUD (peptic ulcer disease): -Had EGD done on 06/13/[address] 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; final pathology pending but prelim results show ulceration with adjacent degenerating atypical cells -Continue PPI IV twice daily, Carafate -Noted significant drop in hemoglobin since discharge from 13.2-9.8, continue to monitor hemoglobin closely -Vital signs stable, continue to monitor -Pain control, antiemetics as needed Status: Acute Code(s): K27.9 - Peptic ulcer, site unspecified, unspecified as acute or chronic, without hemorrhage or perforation Additional A&P Information -HTN; continue oral antihypertensives, continue to monitor vital signs -Chronic diastolic CHF; Echo: EF=65%, no RWMA; no acute exacerbation -PTSD, anxiety, depression; f/u with psychiatry, continue meds -Obesity: BMI-32 kg/m2 -Noted elevated liver function tests, continue to trend; status post cholecystectomy, unremarkable liver, no significant biliary dilatation -NPO except for ice chips due to persistent abdominal pain, nausea -GI ppx with PPI -DVT ppx with SCDs, no AC due to bleeding risk from PUD -Dispo: home -Code status: FULL code Attestations Medical Necessity Statement*: Patient requires hospitalization for continued management of acute pancreatitis and PUD, on IVF, bowel rest. Time Spent in Patient Care: 16 - 35 minutes (>than 50% of time spent in counselling and/or direct pt care on unit) . 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 Thoracic Medicine Physician for g Fwd Exam Comprehensive Diagnoses Acute pancreatitis K85.90 Acute pancreatitis complication: no infection or necrosis Pancreatitis type: unspecified pancreatitis type PUD (peptic ulcer disease) K27.9
[2019-06-23] MEDS: potassium chloride oral liq 20 mEq/15 mL UDC 40 MEQ PO (12:24)
[2019-06-23] MEDS: OLANZapine 10 mg TABLET PO (17:12)
[2019-06-23] MEDS: topiramate 25 mg Tablet 50 MG PO (20:13)
[2019-06-24] VITALS (12 sets, daily range): BP systolic 111–143; BP diastolic 60–83; PULSE 62–79; RESP 16–20; TEMP 36.4–37.2; O2SAT 90–96; BMI 29.5
[2019-06-24] MEDS: morphine 4 mg/mL SDV 1 mL IVP ×5 (01:26→22:05)
[2019-06-24] MEDS: citalopram 20 mg Tablet PO (05:51)
[2019-06-24] MEDS: LORazepam 1 mg Tablet PO ×3 (06:01→22:06)
[2019-06-24 06:05] LABS: Basophils % 1.1 %; Eosinophils # 0.4 10^3/uL (0.0-0.8); Eosinophils % 20.5 %; Hematocrit 30.6 % (37.0-47.0); Hemoglobin 9.6 g/dL (11.5-15.3); Lymphocytes # 0.6 10^3/uL (0.8-4.8); Lymphocytes % 33.5 %; Mean Corpuscular HGB Conc 31.4 g/dL (30.0-36.0); Mean Corpuscular Hemoglobin 31.9 pg (28.0-34.0); Mean Corpuscular Volume 101.7 fL (81-99); Mean Platelet Volume 9.3 fL (7.4-10.4); Monocytes # 0.2 10^3/uL (0.2-0.9); Monocytes % 9.7 %; Neutrophils % 35.2 %; Nucleated Red Blood Cells % 0 %; Platelet Count 162 10^3/cmm (130-400); Red Blood Count 3.01 10^6/uL (4.1-5.3); Red Cell Distribution Width 16.2 % (12.1-15.1); White Blood Count 1.9 10^3/uL (4.0-10.0)
[2019-06-24 06:27] LABS: Neutrophils # 0.7 10^3/uL (1.8-7.7)
[2019-06-24] MEDS: sucralfate 1 gm Tablet PO ×3 (07:45→20:03)
[2019-06-24] MEDS: metoprolol tartrate 25 mg Tablet PO ×2 (07:45→17:14)
--- NOTE | 2019-06-24 08:44 | XR_ITS ---
WS: [id number] CHEST XRAY TECHNIQUE: Portable chest. CLINICAL INFORMATION: picc placement COMPARISON: None. FINDINGS: Left PICC line with tip in distal SVC. Surgical clips at the GE junction. Heart: Normal cardiac silhouette. Lungs: Lungs are clear. No consolidation or pleural effusion. Bones: Normal visualized bony structures. XR/XR chest 1V portable [id number] IMPRESSION: Left PICC line with tip in distal SVC. No pneumothorax.
[2019-06-24] MEDS: lactated ringers 1,000 ML 150 ML IV (15:04)
--- NOTE | 2019-06-24 16:15 | PM.PN ---
Subjective Subjective: Interval history: Patient continues to complain of generalized abdominal discomfort, seems to be tolerating ice chips with minimal difficulty, lost peripheral IV access despite multiple attempts so will have PICC line placed for continued IV fluid hydration. No acute overnight events reported. AM labs noted with continued neutropenia, ANC of 700; will discontinue olanzapine. Medications: Reviewed: Yes Medication Review Details: Active Medications Generic Name Dose Route Start Last Admin Trade Name Freq PRN Reason Stop Dose Admin Acetaminophen 650 mg 06/21/19 11:17 06/23/19 08:50 Tylenol PO 650 mg Q6H PRN Administration Mild/Mod Pain Or Temp >/= 101 Citalopram Hydrobr omide 20 mg 06/22/19 06:00 06/24/19 05:51 Celexa PO 20 mg QAM BONITA Administration Lactated Ringer's 1,000 mls @ 150 m ls/hr 06/21/19 11:30 06/24/19 15:04 Lactated Ringers IV 150 mls/hr .Q6H40M BONITA Administration Lorazepam 1 mg 06/21/19 11:12 06/24/19 13:52 Ativan PO 1 mg TID PRN Administration anxiety Metoprolol Tartrat e 25 mg 06/21/19 18:00 06/24/19 07:45 Lopressor PO 25 mg BID BONITA Administration Morphine Sulfate 4 mg 06/21/19 08:55 06/24/19 13:52 Morphine IVP 4 mg Q4H PRN Administration SEVERE PAIN Morphine Sulfate 4 mg 06/21/19 10:34 Morphine IVP Q4H PRN SEVERE PAIN Naloxone HCl 0.1 mg 06/21/19 11:17 Narcan IVP Q2M PRN OPIATERV Olanzapine 10 mg 06/21/19 18:00 06/23/19 17:12 Zyprexa PO 10 mg QPM BONITA Administration Pantoprazole Sodiu m 40 mg 06/21/19 11:15 06/24/19 07:48 Protonix IVP Not Given Q12H BONITA Sucralfate 1 gm 06/21/19 15:00 06/24/19 15:04 Carafate PO 1 gm TID BONITA Administration Topiramate 50 mg 06/21/19 21:00 06/23/19 20:13 Topamax PO 50 mg BEDTIME BONITA Administration Zolpidem Tartrate 10 mg 06/21/19 21:00 06/23/19 20:13 Ambien PO 10 mg BEDTIME BONITA Administration baclofen Allergy (Unknown, Verified 04/16/19 08:04) Unknown codeine Allergy (Unknown, Verified 04/16/19 08:02) rash ondansetron [From Zofran] Allergy (Unknown, Verified 04/16/19 08:04) ALGY-Anaphylaxis prochlorperazine [From Compazine] Allergy (Unknown, Verified 04/16/19 08:04) Unknown metoclopramide [From Reglan] Allergy (Verified 04/24/19 13:01) ALGY-Hives Vitals/I&O/Wt Last Vital Signs Temp 99.0 F 06/24/19 15:27 Pulse 79 06/24/19 15:27 Resp 19 H 06/24/19 15:27 BP 116/79 06/24/19 15:27 Pulse Ox 94 06/24/19 15:27 06/24/19 06/24/19 06/24/19 06:59 14:59 22:59 Intake Total 1060 / 3920 Output Total 600 / 600 Balance 1060 / 2170 -600 / -600 Weight last 48 hrs Weight 78.018 kg Weight 84.482 kg Physical Exam Const: COMMON NORMALS: no apparent distress and oriented x3 GENERAL APPEARANCE: cooperative and comfortable NUTRITIONAL APPEARANCE: obese centrally obese ORIENTATION/CONSCIOUSNESS: Yes awake HENMT: COMMON NORMALS: normocephalic, head/scalp atraumatic and hearing grossly normal bilaterally HEAD & SCALP: normocephalic and atraumatic MOUTH: moist mucous membranes abnormal Details: parched Eye: COMMON NORMALS: PERRL, EOMs intact bilaterally and conjunctivae normal CONJUNCTIVA: Yes conjunctivae normal PUPIL: Yes PERRL Neck/C-Spine: COMMON NORMALS: full ROM GENERAL: Yes normal visual inspection and Yes trachea midline Resp: COMMON NORMALS: normal respiratory effort, no retractions, no use of accessory muscles and clear to auscultation bilaterally EFFORT & INSPECTION: Yes able to speak in complete sentences, Yes symmetric chest movement and No tachypneic AUSCULTATION: clear to auscultation bilaterally Cardio: COMMON NORMALS: regular rate, regular rhythm, S1 normal heart sound, S2 normal heart sound and no murmurs RATE: regular rate RHYTHM: regular rhythm HEART SOUNDS: S1 normal and S2 normal GI: COMMON NORMALS: normal to inspection, nondistended, normoactive bowel sounds and soft to palpation INSPECTION: Yes central obesity PALPATION: Yes soft, Yes tender (Epigastric and right upper quadrant), No guarding and No rigid Extremity: COMMON NORMALS: normal to inspection, full ROM and no clubbing, cyanosis or edema; negative for no pedal edema Neuro: COMMON NORMALS: oriented x3, moves all extremities, no focal motor deficits and no sensory deficits noted Psych: COMMON NORMALS: mental status grossly normal, thought process normal, cooperative, affect normal and speech normal SPEECH: Yes normal speech THOUGHT PROCESS: normal thought process Skin: COMMON NORMALS: no rashes or lesions noted, no jaundice, no petechiae and no mottling GENERAL SKIN EXAM: no rashes or lesions noted Data : 06/24/19 05:42 06/23/19 05:20 A&P Assessment and plan (1) Acute pancreatitis: -noted findings consistent with acute pancreatitis on CT of the abdomen and pelvis, had a similar episode earlier this month that required hospitalization. -Lipase trending down (425->110). No pseudocyst on imaging -Pain control, bowel rest, IV fluid hydration, antiemetics as needed -Had lipid panel done earlier this month, within normal limits Status: Acute Qualifiers: Acute pancreatitis complication: no infection or necrosis Pancreatitis type: unspecified pancreatitis type Qualified Code(s): K85.90 - Acute pancreatitis without necrosis or infection, unspecified Code(s): K85.90 - Acute pancreatitis without necrosis or infection, unspecified (2) PUD (peptic ulcer disease): -Had EGD done on 06/13/[address] 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; final pathology pending but prelim results show ulceration with adjacent degenerating atypical cells -Continue PPI IV twice daily, Carafate -Noted significant drop in hemoglobin since discharge from 13.2-9.8, continue to monitor hemoglobin closely -Vital signs stable, continue to monitor -Pain control, antiemetics as needed Status: Acute Code(s): K27.9 - Peptic ulcer, site unspecified, unspecified as acute or chronic, without hemorrhage or perforation Additional A&P Information -HTN; continue oral antihypertensives, continue to monitor vital signs -Chronic diastolic CHF; Echo: EF=65%, no RWMA; no acute exacerbation -PTSD, anxiety, depression; f/u with psychiatry, continue meds -Obesity: BMI-30 kg/m2 -Noted elevated liver function tests, continue to trend; status post cholecystectomy, unremarkable liver, no significant biliary dilatation -NPO except for ice chips due to persistent abdominal pain, nausea -GI ppx with PPI -DVT ppx with SCDs, no AC due to bleeding risk from PUD -Dispo: home -Code status: FULL code Attestations Medical Necessity Statement*: Patient requires hospitalization for continued pain control, IV fluid hydration as part of management of peptic ulcer disease and acute pancreatitis. Time Spent in Patient Care: 16 - 35 minutes (>than 50% of time spent in counselling and/or direct pt care on unit). 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 Manager Product Support for Kimberly Fwd Diagnoses Acute pancreatitis K85.90 Acute pancreatitis complication: no infection or necrosis Pancreatitis type: unspecified pancreatitis type PUD (peptic ulcer disease) K27.9
--- NOTE | 2019-06-24 17:24 | PC.NURSE ---
PATIENT HAD PICC PLACED TODAY IN LEFT UPPER ARM.
[2019-06-24] MEDS: pantoprazole 40 mg SDV IVP (20:02)
[2019-06-24] MEDS: topiramate 25 mg Tablet 50 MG PO (20:03)
[2019-06-25] VITALS (13 sets, daily range): BP systolic 114–135; BP diastolic 76–84; PULSE 55–70; RESP 14–203; TEMP 36.5–37.2; O2SAT 93–98
[2019-06-25] MEDS: morphine 4 mg/mL SDV 1 mL IVP ×5 (02:20→23:30)
[2019-06-25] MEDS: lactated ringers 1,000 ML 150 ML IV ×5 (02:40→15:11)
[2019-06-25 04:41] LABS: Basophils % 1.2 %; Eosinophils # 0.5 10^3/uL (0.0-0.8); Eosinophils % 17.7 %; Hematocrit 32.3 % (37.0-47.0); Hemoglobin 9.7 g/dL (11.5-15.3); Lymphocytes # 1.1 10^3/uL (0.8-4.8); Lymphocytes % 42.7 %; Mean Corpuscular Hemoglobin 31.1 pg (28.0-34.0); Mean Corpuscular Volume 103.5 fL (81-99); Mean Platelet Volume 9.9 fL (7.4-10.4); Monocytes # 0.2 10^3/uL (0.2-0.9); Monocytes % 8.8 %; Neutrophils % 29.6 %; Nucleated Red Blood Cells % 0 %; Platelet Count 163 10^3/cmm (130-400); Red Blood Count 3.12 10^6/uL (4.1-5.3); Red Cell Distribution Width 16.3 % (12.1-15.1); White Blood Count 2.6 10^3/uL (4.0-10.0)
[2019-06-25 04:57] LABS: Alanine Aminotransferase 38 U/L (0-33); Albumin Level 2.4 g/dL (3.5-5.2); Alkaline Phosphatase 129 IU/L (35-105); Aspartate Amino Transferase 32 U/L (0-32); Blood Urea Nitrogen 4 mg/dL (6-20); Calcium 8.1 mg/dL (8.5-10.5); Carbon Dioxide 23 mmol/L (22-29); Chloride 111 mmol/L (98-107); Globulin 2.3 g/dL (1.3-4.6); Glomerular Filtration Rate 77.6 mL/min (90-130); Glucose 96 mg/dL (65-115); Lipase 88 U/L (13-60); Osmolality Calculated 292 mOsm/kg (285-295); Sodium 143 mmol/L (136-145); Total Bilirubin 0.2 mg/dL (0.15-1.2); Total Protein 4.7 g/dL (6.6-8.7)
[2019-06-25 05:12] LABS: Neutrophils # 0.8 10^3/uL (1.8-7.7)
[2019-06-25] MEDS: citalopram 20 mg Tablet PO (06:21)
[2019-06-25] MEDS: LORazepam 1 mg Tablet PO ×2 (06:21→18:45)
[2019-06-25] MEDS: sucralfate 1 gm Tablet PO ×3 (09:00→21:06)
[2019-06-25] MEDS: metoprolol tartrate 25 mg Tablet PO ×2 (09:00→17:43)
[2019-06-25] MEDS: pantoprazole 40 mg SDV IVP ×2 (09:45→20:04)
--- NOTE | 2019-06-25 14:16 | PM.PN ---
Subjective Subjective: Interval history: Patient seen and examined, mother at bedside, reports increased pain and nausea today, still NPO with ice chips only. Seems that her morphine and Ativan was discontinued so we will go ahead and renew. Will remain NPO due to increased pain and discomfort today. AM labs noted, ANC-800, stable Hg, LFTs and lipase trending down. Medications: Reviewed: Yes Medication Review Details: Active Medications Generic Name Dose Route Start Last Admin Trade Name Freq PRN Reason Stop Dose Admin Acetaminophen 650 mg 06/21/19 11:17 06/23/19 08:50 Tylenol PO 650 mg Q6H PRN Administration Mild/Mod Pain Or Temp >/= 101 Citalopram Hydrobr omide 20 mg 06/22/19 06:00 06/25/19 06:21 Celexa PO 20 mg QAM BONITA Administration Hydromorphone HCl 2 mg 06/25/19 14:14 Dilaudid Tab PO Q6H PRN BREAKTHROUGH PAIN Lactated Ringer's 1,000 mls @ 150 m ls/hr 06/21/19 11:30 06/25/19 14:08 Lactated Ringers IV 150 mls/hr .Q6H40M BONITA Administration Lorazepam 1 mg 06/25/19 14:14 Ativan PO TID PRN ANXIETY Metoprolol Tartrat e 25 mg 06/21/19 18:00 06/25/19 09:00 Lopressor PO 25 mg BID BONITA Administration Morphine Sulfate 4 mg 06/25/19 14:14 Morphine IVP Q4H PRN SEVERE PAIN Naloxone HCl 0.1 mg 06/21/19 11:17 Narcan IVP Q2M PRN OPIATERV Olanzapine 10 mg 06/21/19 18:00 06/23/19 17:12 Zyprexa PO 10 mg QPM BONITA Administration Pantoprazole Sodiu m 40 mg 06/21/19 11:15 06/25/19 09:45 Protonix IVP 40 mg Q12H BONITA Administration Sucralfate 1 gm 06/21/19 15:00 06/25/19 14:13 Carafate PO 1 gm TID BONITA Administration Topiramate 50 mg 06/21/19 21:00 06/24/19 20:03 Topamax PO 50 mg BEDTIME BONITA Administration Zolpidem Tartrate 10 mg 06/21/19 21:00 06/24/19 20:03 Ambien PO 10 mg BEDTIME BONITA Administration baclofen Allergy (Unknown, Verified 04/16/19 08:04) Unknown codeine Allergy (Unknown, Verified 04/16/19 08:02) rash ondansetron [From Zofran] Allergy (Unknown, Verified 04/16/19 08:04) ALGY-Anaphylaxis prochlorperazine [From Compazine] Allergy (Unknown, Verified 04/16/19 08:04) Unknown metoclopramide [From Reglan] Allergy (Verified 04/24/19 13:01) ALGY-Hives Vitals/I&O/Wt Last Vital Signs Temp 98.6 F 06/25/19 12:00 Pulse 55 L 06/25/19 12:00 Resp 203 H 06/25/19 12:00 BP 123/82 06/25/19 12:00 Pulse Ox 97 06/25/19 12:00 06/24/19 06/25/19 06/25/19 22:59 06:59 14:59 Intake Total 1050 / 1050 1567.5 / 1567.5 Output Total 650 / 1250 800 / 800 Balance 1050 / 450 -650 / -200 767.5 / 767.5 Weight last 48 hrs Weight 91.626 kg Weight 78.018 kg Physical Exam Const: COMMON NORMALS: no apparent distress and oriented x3 GENERAL APPEARANCE: cooperative and anxious; not comfortable NUTRITIONAL APPEARANCE: obese centrally obese ORIENTATION/CONSCIOUSNESS: Yes awake HENMT: COMMON NORMALS: normocephalic, head/scalp atraumatic and hearing grossly normal bilaterally HEAD & SCALP: normocephalic and atraumatic MOUTH: moist mucous membranes abnormal Details: parched Eye: COMMON NORMALS: PERRL, EOMs intact bilaterally and conjunctivae normal CONJUNCTIVA: Yes conjunctivae normal PUPIL: Yes PERRL Neck/C-Spine: COMMON NORMALS: full ROM GENERAL: Yes normal visual inspection and Yes trachea midline Resp: COMMON NORMALS: normal respiratory effort, no retractions, no use of accessory muscles and clear to auscultation bilaterally EFFORT & INSPECTION: Yes able to speak in complete sentences, Yes symmetric chest movement and No tachypneic AUSCULTATION: clear to auscultation bilaterally Cardio: COMMON NORMALS: regular rate, regular rhythm, S1 normal heart sound, S2 normal heart sound and no murmurs RATE: regular rate RHYTHM: regular rhythm HEART SOUNDS: S1 normal and S2 normal GI: COMMON NORMALS: normal to inspection, nondistended, normoactive bowel sounds and soft to palpation INSPECTION: Yes central obesity PALPATION: Yes soft, Yes tender (Epigastric and right upper quadrant), No guarding and No rigid Extremity: COMMON NORMALS: normal to inspection, full ROM and no clubbing, cyanosis or edema; negative for no pedal edema Neuro: COMMON NORMALS: oriented x3, moves all extremities, no focal motor deficits and no sensory deficits noted Psych: COMMON NORMALS: mental status grossly normal, thought process normal, cooperative and speech normal SPEECH: Yes normal speech MOOD & AFFECT: Yes anxious THOUGHT PROCESS: normal thought process Skin: COMMON NORMALS: no rashes or lesions noted, no jaundice, no petechiae and no mottling GENERAL SKIN EXAM: no rashes or lesions noted Data : 06/25/19 04:27 06/25/19 04:27 A&P Assessment and plan (1) Acute pancreatitis: -noted findings consistent with acute pancreatitis on CT of the abdomen and pelvis, had a similar episode earlier this month that required hospitalization. -Lipase trending down (425->110->88). No pseudocyst on imaging -Pain control, bowel rest, IV fluid hydration, antiemetics as needed -Had lipid panel done earlier this month, within normal limits Status: Acute Qualifiers: Acute pancreatitis complication: no infection or necrosis Pancreatitis type: unspecified pancreatitis type Qualified Code(s): K85.90 - Acute pancreatitis without necrosis or infection, unspecified Code(s): K85.90 - Acute pancreatitis without necrosis or infection, unspecified (2) PUD (peptic ulcer disease): -Had EGD done on 06/13/[address] 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; final pathology pending but prelim results show ulceration with adjacent degenerating atypical cells -Continue PPI IV twice daily, Carafate -Noted significant drop in hemoglobin since discharge from 13.2-9.8, continue to monitor hemoglobin closely -Vital signs stable, continue to monitor -Pain control, antiemetics as needed Status: Acute Code(s): K27.9 - Peptic ulcer, site unspecified, unspecified as acute or chronic, without hemorrhage or perforation Additional A&P Information -HTN; continue oral antihypertensives, continue to monitor vital signs -Chronic diastolic CHF; Echo: EF=65%, no RWMA; no acute exacerbation -PTSD, anxiety, depression; f/u with psychiatry, continue meds -Morbid obesity: BMI-35 kg/m2 -Noted elevated liver function tests, continue to trend; status post cholecystectomy, unremarkable liver, no significant biliary dilatation -NPO except for ice chips due to persistent abdominal pain, nausea -GI ppx with PPI -DVT ppx with SCDs, no AC due to bleeding risk from PUD -Dispo: home -Code status: FULL code Attestations Medical Necessity Statement*: Patient requires hospitalization for continued pain control, antiemetics given acute pancreatitis and peptic ulcer disease, remains n.p.o. due to persistent pain. Time Spent in Patient Care: 16 - 35 minutes (>than 50% of time spent in counselling and/or direct pt care on unit). 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
[2019-06-25] MEDS: topiramate 25 mg Tablet 50 MG PO (21:06)
[2019-06-26] VITALS (14 sets, daily range): BP systolic 117–146; BP diastolic 60–86; PULSE 51–68; RESP 14–20; TEMP 36.5–36.9; O2SAT 94–98
[2019-06-26] MEDS: LORazepam 1 mg Tablet PO ×3 (04:39→21:36)
[2019-06-26] MEDS: citalopram 20 mg Tablet PO (04:40)
[2019-06-26] MEDS: lactated ringers 1,000 ML 150 ML IV ×3 (04:41→19:33)
[2019-06-26] MEDS: morphine 4 mg/mL SDV 1 mL IVP ×4 (07:46→23:36)
[2019-06-26] MEDS: pantoprazole 40 mg SDV IVP ×2 (07:46→19:34)
[2019-06-26] MEDS: sucralfate 1 gm Tablet PO ×3 (09:22→21:36)
[2019-06-26] MEDS: metoprolol tartrate 25 mg Tablet PO ×2 (09:22→17:20)
--- NOTE | 2019-06-26 13:29 | PM.PN ---
Subjective Subjective: Interval history: Patient seen and examined, resting in bed, looks a little better and reports decreased pain, intermittent nausea, no vomiting. Willing to try some juice. Medications: Reviewed: Yes Medication Review Details: Active Medications Generic Name Dose Route Start Last Admin Trade Name Freq PRN Reason Stop Dose Admin Acetaminophen 650 mg 06/21/19 11:17 06/23/19 08:50 Tylenol PO 650 mg Q6H PRN Administration Mild/Mod Pain Or Temp >/= 101 Citalopram Hydrobr omide 20 mg 06/22/19 06:00 06/26/19 04:40 Celexa PO 20 mg QAM BONITA Administration Hydromorphone HCl 2 mg 06/25/19 14:14 06/26/19 10:50 Dilaudid Tab PO 2 mg Q6H PRN Administration BREAKTHROUGH PAIN Lactated Ringer's 1,000 mls @ 150 m ls/hr 06/21/19 11:30 06/26/19 09:22 Lactated Ringers IV 150 mls/hr .Q6H40M BONITA Administration Lorazepam 1 mg 06/25/19 14:14 06/26/19 12:47 Ativan PO 1 mg TID PRN Administration ANXIETY Metoprolol Tartrat e 25 mg 06/21/19 18:00 06/26/19 09:22 Lopressor PO 25 mg BID BONITA Administration Morphine Sulfate 4 mg 06/25/19 14:14 06/26/19 07:46 Morphine IVP 4 mg Q4H PRN Administration SEVERE PAIN Naloxone HCl 0.1 mg 06/21/19 11:17 Narcan IVP Q2M PRN OPIATERV Olanzapine 10 mg 06/21/19 18:00 06/23/19 17:12 Zyprexa PO 10 mg QPM BONITA Administration Pantoprazole Sodiu m 40 mg 06/21/19 11:15 06/26/19 07:46 Protonix IVP 40 mg Q12H BONITA Administration Sucralfate 1 gm 06/21/19 15:00 06/26/19 09:22 Carafate PO 1 gm TID BONITA Administration Topiramate 50 mg 06/21/19 21:00 06/25/19 21:06 Topamax PO 50 mg BEDTIME BONITA Administration Zolpidem Tartrate 10 mg 06/21/19 21:00 03/24/20 21:06 Ambien PO 10 mg BEDTIME BONITA Administration baclofen Allergy (Unknown, Verified 04/16/19 08:04) Unknown codeine Allergy (Unknown, Verified 04/16/19 08:02) rash ondansetron [From Zofran] Allergy (Unknown, Verified 04/16/19 08:04) ALGY-Anaphylaxis prochlorperazine [From Compazine] Allergy (Unknown, Verified 04/16/19 08:04) Unknown metoclopramide [From Reglan] Allergy (Verified 04/24/19 13:01) ALGY-Hives Vitals/I&O/Wt Last Vital Signs Temp 97.7 F 06/26/19 11:42 Pulse 68 06/26/19 11:42 Resp 16 06/26/19 11:42 BP 136/60 06/26/19 11:42 Pulse Ox 95 06/26/19 11:42 06/25/19 06/26/19 06/26/19 22:59 06:59 14:59 Intake Total 1277.5 / 2845.0 702.5 / 702.5 Output Total 2000 / 2800 600 / 3400 Balance -722.5 / 45.0 -600 / -555.0 702.5 / 702.5 Weight last 48 hrs Weight 90.492 kg Weight 91.626 kg Physical Exam Const: COMMON NORMALS: no apparent distress and oriented x3 GENERAL APPEARANCE: cooperative and anxious; not comfortable NUTRITIONAL APPEARANCE: obese centrally obese ORIENTATION/CONSCIOUSNESS: Yes awake HENMT: COMMON NORMALS: normocephalic, head/scalp atraumatic and hearing grossly normal bilaterally HEAD & SCALP: normocephalic and atraumatic MOUTH: moist mucous membranes abnormal Details: parched Eye: COMMON NORMALS: PERRL, EOMs intact bilaterally and conjunctivae normal CONJUNCTIVA: Yes conjunctivae normal PUPIL: Yes PERRL Neck/C-Spine: COMMON NORMALS: full ROM GENERAL: Yes normal visual inspection and Yes trachea midline Resp: COMMON NORMALS: normal respiratory effort, no retractions, no use of accessory muscles and clear to auscultation bilaterally EFFORT & INSPECTION: Yes able to speak in complete sentences, Yes symmetric chest movement and No tachypneic AUSCULTATION: clear to auscultation bilaterally Cardio: COMMON NORMALS: regular rate, regular rhythm, S1 normal heart sound, S2 normal heart sound and no murmurs RATE: regular rate RHYTHM: regular rhythm HEART SOUNDS: S1 normal and S2 normal GI: COMMON NORMALS: normal to inspection, nondistended, normoactive bowel sounds and soft to palpation INSPECTION: Yes central obesity PALPATION: Yes soft, Yes tender (Epigastric and right upper quadrant), No guarding and No rigid Extremity: COMMON NORMALS: normal to inspection, full ROM and no clubbing, cyanosis or edema; negative for no pedal edema Neuro: COMMON NORMALS: oriented x3, moves all extremities, no focal motor deficits and no sensory deficits noted Psych: COMMON NORMALS: mental status grossly normal, thought process normal, cooperative and speech normal SPEECH: Yes normal speech MOOD & AFFECT: Yes anxious THOUGHT PROCESS: normal thought process Skin: COMMON NORMALS: no rashes or lesions noted, no jaundice, no petechiae and no mottling GENERAL SKIN EXAM: no rashes or lesions noted Data : 06/25/19 04:27 06/25/19 04:27 A&P Assessment and plan (1) Acute pancreatitis: -noted findings consistent with acute pancreatitis on CT of the abdomen and pelvis, had a similar episode earlier this month that required hospitalization. -Lipase trending down (425->110->88). No pseudocyst on imaging -Pain control, bowel rest, IV fluid hydration, antiemetics as needed -Had lipid panel done earlier this month, within normal limits -has been NPO but pain is a little less today so will start on CLD Status: Acute Qualifiers: Acute pancreatitis complication: no infection or necrosis Pancreatitis type: unspecified pancreatitis type Qualified Code(s): K85.90 - Acute pancreatitis without necrosis or infection, unspecified Code(s): K85.90 - Acute pancreatitis without necrosis or infection, unspecified (2) PUD (peptic ulcer disease): -Had EGD done on 06/13/[address] 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; final pathology pending but prelim results show ulceration with adjacent degenerating atypical cells -Continue PPI IV twice daily, Carafate -Noted significant drop in hemoglobin since discharge from 13.2-9.8, continue to monitor hemoglobin closely -Vital signs stable, continue to monitor -Pain control, antiemetics as needed Status: Acute Code(s): K27.9 - Peptic ulcer, site unspecified, unspecified as acute or chronic, without hemorrhage or perforation Additional A&P Information -HTN; continue oral antihypertensives, continue to monitor vital signs -Chronic diastolic CHF; Echo: EF=65%, no RWMA; no acute exacerbation -PTSD, anxiety, depression; f/u with psychiatry, continue meds -Morbid obesity: BMI-34 kg/m2 -Noted elevated liver function tests; status post cholecystectomy, unremarkable liver, no significant biliary dilatation -start on CLD as less abdominal pain, nausea; no vomiting -GI ppx with PPI -DVT ppx with SCDs, no AC due to bleeding risk from PUD -Dispo: home -Code status: FULL code Attestations Medical Necessity Statement*: Patient requires hospitalization for continued pain control, IVF hydration, oral intake introduced today. Time Spent in Patient Care: 16 - 35 minutes (>than 50% of time spent in counselling and/or direct pt care on unit). 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
--- NOTE | 2019-06-26 16:31 | PC.NURSE ---
PAIN ASSESSMENT: Rounding for pain med reassessment, patient is sleeping (lying in bed with eyes closed). RAPHAELW, DIET AIDE
[2019-06-26] MEDS: topiramate 25 mg Tablet 50 MG PO (21:36)
[2019-06-27] VITALS (12 sets, daily range): BP systolic 108–137; BP diastolic 65–84; PULSE 58–69; RESP 14–20; TEMP 36.4–37.2; O2SAT 90–98
[2019-06-27] MEDS: lactated ringers 1,000 ML 150 ML IV ×4 (02:03→22:33)
[2019-06-27] MEDS: morphine 4 mg/mL SDV 1 mL IVP ×4 (03:35→20:46)
[2019-06-27] MEDS: citalopram 20 mg Tablet PO (05:22)
[2019-06-27] MEDS: LORazepam 1 mg Tablet PO ×3 (05:22→22:33)
[2019-06-27] MEDS: pantoprazole 40 mg SDV IVP ×2 (07:45→20:47)
[2019-06-27] MEDS: metoprolol tartrate 25 mg Tablet PO ×2 (10:16→18:55)
[2019-06-27] MEDS: sucralfate 1 gm Tablet PO ×3 (10:16→20:47)
--- NOTE | 2019-06-27 11:14 | PC.CHAP ---
Pastoral Care Encounter/Spiritual Assessment Type of Contact [x] Declined premium auditor visit [] Patient/Family/Request visit [] Outpatient visit [] Follow-up visit [] Physician referral [] Code/Alert [] Routine visit [] Staff referral [] Actively dying [] Patient sleeping [] Family support [] [] Out of room [] Palliative care [] [] Receiving care in room [] Pre-surgical visit [] Trauma [] Long length of stay [] ICU visit [] Other: Relational/Emotional Strength [] Patient feels connected with others/family/visitors/staff [] Distress [] Loneliness/isolation [] Abandonment Spirituality of Patient [] Person of Teresa [] Attends Oriental [employer] of their Teresa [] Believes in Prayer [] Reads Bible or Mandaen materials [] There are Spiritual issues to be addressed Waste Water Operator Interventions [] Prayer [] Active listening [] Non-anxious presence [] Spiritual/emotional support [] Crisis/trauma care [] Spiritual counseling [] Bereavement support [] Provided bereavement packet [] Provided Bible/devotional materials [] Provided toy/stuffed animal, coloring book to patient or family member [] Provided Communion [] Anointing/[place] [] Salvation [] Completed spiritual assessment [] Other: Impact on Illness or Injury [] Angry [] Fearful [] Anxious [] Often cries [] Exhaustion [] Unable to work [] Unable to attend alevism [] Unable to walk/stand [] Unable to read [] Unable to drive [] Unable to eat/drink [] Unable to sleep [] Unable to be with family [] Patient intubated [] Other: Summary Patient declined a visit but allowed prayer to be provided. Time spent with patient 3 minutes
--- NOTE | 2019-06-27 15:35 | PM.PN ---
Subjective Subjective: Interval history: Within a 24 hr period has required a total of 20 mg of IV morphine and 8 mg of oral dilaudid. Has been on CLD. VSS with intermittent bradycardia, HR in the 50-60 range. Overnight had 1020 mL urine output. Tolerated ice chips and juice better than she did broth as she had some emesis following a broth this morning. Is still willing to continue to try clear liquid diet, pain is well controlled with current analgesic regimen. No acute overnight events reported. Medications: Reviewed: Yes Medication Review Details: Active Medications Generic Name Dose Route Start Last Admin Trade Name Freq PRN Reason Stop Dose Admin Acetaminophen 650 mg 06/21/19 11:17 06/23/19 08:50 Tylenol PO 650 mg Q6H PRN Administration Mild/Mod Pain Or Temp >/= 101 Citalopram Hydrobr omide 20 mg 06/22/19 06:00 06/27/19 05:22 Celexa PO 20 mg QAM BONITA Administration Hydromorphone HCl 2 mg 06/25/19 14:14 06/27/19 11:41 Dilaudid Tab PO 2 mg Q6H PRN Administration BREAKTHROUGH PAIN Lactated Ringer's 1,000 mls @ 150 m ls/hr 06/21/19 11:30 06/27/19 10:17 Lactated Ringers IV 150 mls/hr .Q6H40M BONITA Administration Lorazepam 1 mg 06/25/19 14:14 06/27/19 14:11 Ativan PO 1 mg TID PRN Administration ANXIETY Metoprolol Tartrat e 25 mg 06/21/19 18:00 06/27/19 10:16 Lopressor PO 25 mg BID BONITA Administration Morphine Sulfate 4 mg 06/25/19 14:14 06/27/19 14:10 Morphine IVP 4 mg Q4H PRN Administration SEVERE PAIN Naloxone HCl 0.1 mg 06/21/19 11:17 Narcan IVP Q2M PRN OPIATERV Olanzapine 10 mg 06/21/19 18:00 06/23/19 17:12 Zyprexa PO 10 mg QPM BONITA Administration Pantoprazole Sodiu m 40 mg 06/21/19 11:15 06/27/19 07:45 Protonix IVP 40 mg Q12H BONITA Administration Sucralfate 1 gm 06/21/19 15:00 06/27/19 14:11 Carafate PO 1 gm TID BONITA Administration Topiramate 50 mg 06/21/19 21:00 06/26/19 21:36 Topamax PO 50 mg BEDTIME BONITA Administration Zolpidem Tartrate 10 mg 06/21/19 21:00 06/26/19 21:36 Ambien PO 10 mg BEDTIME OBNITA Administration baclofen Allergy (Unknown, Verified 04/16/19 08:04) Unknown codeine Allergy (Unknown, Verified 04/16/19 08:02) rash ondansetron [From Zofran] Allergy (Unknown, Verified 04/16/19 08:04) ALGY-Anaphylaxis prochlorperazine [From Compazine] Allergy (Unknown, Verified 04/16/19 08:04) Unknown metoclopramide [From Reglan] Allergy (Verified 04/24/19 13:01) ALGY-Hives Vitals/I&O/Wt Last Vital Signs Temp 98.2 F 06/27/19 15:29 Pulse 58 L 06/27/19 15:29 Resp 20 H 06/27/19 15:29 BP 137/80 06/27/19 15:29 Pulse Ox 90 06/27/19 15:29 06/27/19 06/27/19 06/27/19 06:59 14:59 22:59 Intake Total 1000 / 2942.5 1360 / 1360 Output Total 500 / 2020 Balance 500 / 922.5 1360 / 1360 Weight last 48 hrs Weight 91.342 kg Weight 90.492 kg Physical Exam Const: COMMON NORMALS: no apparent distress and oriented x3 GENERAL APPEARANCE: cooperative and anxious; not comfortable NUTRITIONAL APPEARANCE: obese centrally obese ORIENTATION/CONSCIOUSNESS: Yes awake HENMT: COMMON NORMALS: normocephalic, head/scalp atraumatic and hearing grossly normal bilaterally HEAD & SCALP: normocephalic and atraumatic MOUTH: moist mucous membranes abnormal Details: parched Eye: COMMON NORMALS: PERRL, EOMs intact bilaterally and conjunctivae normal CONJUNCTIVA: Yes conjunctivae normal PUPIL: Yes PERRL Neck/C-Spine: COMMON NORMALS: full ROM GENERAL: Yes normal visual inspection and Yes trachea midline Resp: COMMON NORMALS: normal respiratory effort, no retractions, no use of accessory muscles and clear to auscultation bilaterally EFFORT & INSPECTION: Yes able to speak in complete sentences, Yes symmetric chest movement and No tachypneic AUSCULTATION: clear to auscultation bilaterally Cardio: COMMON NORMALS: regular rate, regular rhythm, S1 normal heart sound, S2 normal heart sound and no murmurs RATE: regular rate RHYTHM: regular rhythm HEART SOUNDS: S1 normal and S2 normal GI: COMMON NORMALS: normal to inspection, nondistended, normoactive bowel sounds and soft to palpation INSPECTION: Yes central obesity PALPATION: Yes soft, Yes tender (Epigastric and right upper quadrant), No guarding and No rigid Extremity: COMMON NORMALS: normal to inspection, full ROM and no clubbing, cyanosis or edema; negative for no pedal edema Neuro: COMMON NORMALS: oriented x3, moves all extremities, no focal motor deficits and no sensory deficits noted Psych: COMMON NORMALS: mental status grossly normal, thought process normal, cooperative and speech normal SPEECH: Yes normal speech MOOD & AFFECT: Yes anxious THOUGHT PROCESS: normal thought process Skin: COMMON NORMALS: no rashes or lesions noted, no jaundice, no petechiae and no mottling GENERAL SKIN EXAM: no rashes or lesions noted Data : 06/25/19 04:27 06/25/19 04:27 A&P Assessment and plan (1) Acute pancreatitis: -noted findings consistent with acute pancreatitis on CT of the abdomen and pelvis, had a similar episode earlier this month that required hospitalization. -Lipase trending down (425->110->88). No pseudocyst on imaging -Pain control, bowel rest, IV fluid hydration, antiemetics as needed -Had lipid panel done earlier this month, within normal limits -on CLD Status: Acute Qualifiers: Acute pancreatitis complication: no infection or necrosis Pancreatitis type: unspecified pancreatitis type Qualified Code(s): K85.90 - Acute pancreatitis without necrosis or infection, unspecified Code(s): K85.90 - Acute pancreatitis without necrosis or infection, unspecified (2) PUD (peptic ulcer disease): -Had EGD done on 06/13/[address] 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; final pathology pending but prelim results show ulceration with adjacent degenerating atypical cells -Continue PPI IV twice daily, Carafate -Noted significant drop in hemoglobin since discharge from 13.2->9.8, continue to monitor hemoglobin closely -Vital signs stable, continue to monitor -Pain control, antiemetics as needed Status: Acute Code(s): K27.9 - Peptic ulcer, site unspecified, unspecified as acute or chronic, without hemorrhage or perforation Additional A&P Information -HTN; continue oral antihypertensives, continue to monitor vital signs -Chronic diastolic CHF; Echo: EF=65%, no RWMA; no acute exacerbation -PTSD, anxiety, depression; f/u with psychiatry, continue meds -Morbid obesity: BMI-35 kg/m2 -Noted elevated liver function tests; status post cholecystectomy, unremarkable liver, no significant biliary dilatation -on CLD; advance as tolerated -GI ppx with PPI -DVT ppx with SCDs, no AC due to bleeding risk from PUD -Dispo: home -Code status: FULL code Attestations Medical Necessity Statement*: Patient requires hospitalization for continued pain control, management of acute pancreatitis and PUD, pending improved oral intake and tolerance. Time Spent in Patient Care: 16 - 35 minutes (>than 50% of time spent in counselling and/or direct pt care on unit). 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
[2019-06-27] MEDS: topiramate 25 mg Tablet 50 MG PO (20:47)
--- NOTE | 2019-06-27 22:16 | PC.NURSE ---
encouraged to void to hat.
[2019-06-28] VITALS (14 sets, daily range): BP systolic 113–141; BP diastolic 68–85; PULSE 54–69; RESP 16–19; TEMP 36.3–37.1; O2SAT 92–97
[2019-06-28] MEDS: morphine 4 mg/mL SDV 1 mL IVP ×3 (03:08→16:20)
[2019-06-28] MEDS: citalopram 20 mg Tablet PO (05:10)
[2019-06-28] MEDS: lactated ringers 1,000 ML 150 ML IV ×3 (05:10→20:13)
[2019-06-28 06:34] LABS: Alanine Aminotransferase 21 U/L (0-33); Albumin Level 2.4 g/dL (3.5-5.2); Alkaline Phosphatase 123 IU/L (35-105); Anion Gap 11.7 (5-19); Aspartate Amino Transferase 18 U/L (0-32); Blood Urea Nitrogen 3 mg/dL (6-20); Calcium 8.5 mg/dL (8.5-10.5); Carbon Dioxide 25 mmol/L (22-29); Chloride 112 mmol/L (98-107); Glomerular Filtration Rate 77.6 mL/min (90-130); Glucose 86 mg/dL (65-115); Osmolality Calculated 295 mOsm/kg (285-295); Potassium 3.7 mmol/L (3.5-5.1); Sodium 145 mmol/L (136-145); Total Bilirubin 0.2 mg/dL (0.15-1.2); Total Protein 4.4 g/dL (6.6-8.7)
[2019-06-28 06:46] LABS: Basophils % 1.3 %; Eosinophils # 0.3 10^3/uL (0.0-0.8); Eosinophils % 11.5 %; Hematocrit 30.2 % (37.0-47.0); Hemoglobin 9.3 g/dL (11.5-15.3); Lymphocytes # 0.9 10^3/uL (0.8-4.8); Lymphocytes % 41.6 %; Mean Corpuscular HGB Conc 30.8 g/dL (30.0-36.0); Mean Corpuscular Hemoglobin 31.1 pg (28.0-34.0); Mean Platelet Volume 10.5 fL (7.4-10.4); Monocytes # 0.2 10^3/uL (0.2-0.9); Monocytes % 8.4 %; Neutrophils % 36.3 %; Nucleated Red Blood Cells % 0 %; Platelet Count 162 10^3/cmm (130-400); Red Blood Count 2.99 10^6/uL (4.1-5.3); Red Cell Distribution Width 15.8 % (12.1-15.1); White Blood Count 2.3 10^3/uL (4.0-10.0)
[2019-06-28 06:56] LABS: Neutrophils # 0.8 10^3/uL (1.8-7.7)
[2019-06-28] MEDS: sucralfate 1 gm Tablet PO ×3 (08:08→20:14)
[2019-06-28] MEDS: metoprolol tartrate 25 mg Tablet PO ×2 (08:08→17:49)
[2019-06-28] MEDS: LORazepam 1 mg Tablet PO ×2 (08:10→16:20)
[2019-06-28] MEDS: pantoprazole 40 mg SDV IVP ×2 (08:11→20:25)
--- NOTE | 2019-06-28 16:49 | P.PN_ITS ---
Subjective Subjective: Interval history: Patient seen and examined, per nursing staff report is quite insistent on getting her medications on a particular schedule, given what have observed over the past several days I am suspicious of pain seeking behavior. She will verbalize that she is having 9 or 10 out of 10 pain but appears comfortable clinically. Has been tolerating clear liquid diet with minimal difficulty. Had 1200 mL urine output overnight, 1 liquid bowel movement earlier this morning. Not quite ready to advance oral intake at this time. Medications: Reviewed: Yes Medication Review Details: Active Medications Generic Name Dose Route Start Last Admin Trade Name Freq PRN Reason Stop Dose Admin Acetaminophen 650 mg 06/21/19 11:17 06/23/19 08:50 Tylenol PO 650 mg Q6H PRN Administration Mild/Mod Pain Or Temp >/= 101 Citalopram Hydrobr omide 20 mg 06/22/19 06:00 06/28/19 05:10 Celexa PO 20 mg QAM BONITA Administration Hydromorphone HCl 2 mg 06/25/19 14:14 06/28/19 14:06 Dilaudid Tab PO 2 mg Q6H PRN Administration BREAKTHROUGH PAIN Lactated Ringer's 1,000 mls @ 100 m ls/hr 06/21/19 11:30 06/28/19 12:06 Lactated Ringers IV 150 mls/hr .Q10H BONITA Administration Lorazepam 1 mg 06/25/19 14:14 06/28/19 16:20 Ativan PO 1 mg TID PRN Administration ANXIETY Metoprolol Tartrat e 25 mg 06/21/19 18:00 06/28/19 08:08 Lopressor PO 25 mg BID BONITA Administration Morphine Sulfate 2 mg 06/28/19 16:50 Morphine IVP Q4H PRN SEVERE PAIN Naloxone HCl 0.1 mg 06/21/19 11:17 Narcan IVP Q2M PRN OPIATERV Olanzapine 10 mg 06/21/19 18:00 06/23/19 17:12 Zyprexa PO 10 mg QPM BONITA Administration Pantoprazole Sodiu m 40 mg 06/21/19 11:15 06/28/19 08:11 Protonix IVP 40 mg Q12H BONITA Administration Sucralfate 1 gm 06/21/19 15:00 06/28/19 14:06 Carafate PO 1 gm TID BONITA Administration Topiramate 50 mg 06/21/19 21:00 06/27/19 20:47 Topamax PO 50 mg BEDTIME BONITA Administration Zolpidem Tartrate 10 mg 06/21/19 21:00 06/27/19 20:47 Ambien PO 10 mg BEDTIME BONITA Administration baclofen Allergy (Unknown, Verified 04/16/19 08:04) Unknown codeine Allergy (Unknown, Verified 04/16/19 08:02) rash ondansetron [From Zofran] Allergy (Unknown, Verified 04/16/19 08:04) ALGY-Anaphylaxis prochlorperazine [From Compazine] Allergy (Unknown, Verified 04/16/19 08:04) Unknown metoclopramide [From Reglan] Allergy (Verified 04/24/19 13:01) ALGY-Hives Vitals/I&O/Wt Last Vital Signs Temp 98.3 F 06/28/19 15:31 Pulse 56 L 06/28/19 15:31 Resp 18 06/28/19 16:20 BP 126/78 06/28/19 15:31 Pulse Ox 97 06/28/19 15:31 06/28/19 06/28/19 06/28/19 06:59 14:59 22:59 Intake Total 1142.5 / 4410.0 1480 / 1480 Output Total 750 / 1200 700 / 700 Balance 392.5 / 3210.0 1480 / 1480 -700 / 780 Weight last 48 hrs Weight 90.917 kg Weight 91.342 kg Physical Exam Const: COMMON NORMALS: no apparent distress and oriented x3 GENERAL APPEARANCE: cooperative and comfortable NUTRITIONAL APPEARANCE: obese centrally obese ORIENTATION/CONSCIOUSNESS: Yes awake HENMT: COMMON NORMALS: normocephalic, head/scalp atraumatic and hearing grossly normal bilaterally HEAD & SCALP: normocephalic and atraumatic MOUTH: moist mucous membranes abnormal Details: parched Eye: COMMON NORMALS: PERRL, EOMs intact bilaterally and conjunctivae normal CONJUNCTIVA: Yes conjunctivae normal PUPIL: Yes PERRL Neck/C-Spine: COMMON NORMALS: full ROM GENERAL: Yes normal visual inspection and Yes trachea midline Resp: COMMON NORMALS: normal respiratory effort, no retractions, no use of accessory muscles and clear to auscultation bilaterally EFFORT & INSPECTION: Yes able to speak in complete sentences, Yes symmetric chest movement and No tachypneic AUSCULTATION: clear to auscultation bilaterally Cardio: COMMON NORMALS: regular rate, regular rhythm, S1 normal heart sound, S2 normal heart sound and no murmurs RATE: regular rate RHYTHM: regular rhythm HEART SOUNDS: S1 normal and S2 normal GI: COMMON NORMALS: normal to inspection, nondistended, normoactive bowel sounds and soft to palpation INSPECTION: Yes central obesity PALPATION: Yes soft, Yes tender (Epigastric and right upper quadrant), No guarding and No rigid Extremity: COMMON NORMALS: normal to inspection, full ROM and no clubbing, cyanosis or edema; negative for no pedal edema Neuro: COMMON NORMALS: oriented x3, moves all extremities, no focal motor deficits and no sensory deficits noted Psych: COMMON NORMALS: mental status grossly normal, thought process normal, cooperative and speech normal SPEECH: Yes normal speech MOOD & AFFECT: Yes anxious THOUGHT PROCESS: normal thought process Skin: COMMON NORMALS: no rashes or lesions noted, no jaundice, no petechiae and no mottling GENERAL SKIN EXAM: no rashes or lesions noted Data : 06/28/19 05:30 06/28/19 05:30 A&P Assessment and plan (1) Acute pancreatitis: -noted findings consistent with acute pancreatitis on CT of the abdomen and pelvis, had a similar episode earlier this month that required hospitalization. -Lipase trending down (425->110->88). No pseudocyst on imaging -Pain control, bowel rest, IV fluid hydration, antiemetics as needed. Suspicious of pain seeking behavior given insistence on taking oral and IV pain medications at a particular schedule; appears comfortable even as she verbalizes a 9-10 out of 10 pain. We will start to wean off morphine in anticipation for d/c home -Had lipid panel done earlier this month, within normal limits -on CLD Status: Acute Qualifiers: Acute pancreatitis complication: no infection or necrosis Pancreatitis type: unspecified pancreatitis type Qualified Code(s): K85.90 - Acute pancreatitis without necrosis or infection, unspecified Code(s): K85.90 - Acute pancreatitis without necrosis or infection, unspecified (2) PUD (peptic ulcer disease): -Had EGD done on 06/13/[address] 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; final pathology pending but prelim results show ulceration with adjacent degenerating atypical cells -Continue PPI IV twice daily, Carafate -Noted significant drop in hemoglobin since discharge from 13.2->9.8, continue to monitor hemoglobin closely -Vital signs stable, continue to monitor -Pain control, antiemetics as needed Status: Acute Code(s): K27.9 - Peptic ulcer, site unspecified, unspecified as acute or chronic, without hemorrhage or perforation Additional A&P Information -HTN; continue oral antihypertensives, continue to monitor vital signs -Chronic diastolic CHF; Echo: EF=65%, no RWMA; no acute exacerbation -PTSD, anxiety, depression; f/u with psychiatry, continue meds -Morbid obesity: BMI-34 kg/m2 -Noted elevated liver function tests; status post cholecystectomy, unremarkable liver, no significant biliary dilatation -on CLD; advance as tolerated -GI ppx with PPI -DVT ppx with SCDs, no AC due to bleeding risk from PUD -Dispo: home -Code status: FULL code -Anticipate discharge in the next 24 to 48 hours, can continue clear liquid diet for several more days with gradual advance in her diet as tolerated Attestations Medical Necessity Statement*: Patient requires hospitalization for continued pain management secondary to acute pancreatitis and PUD. Time Spent in Patient Care: 16 - 35 minutes (>than 50% of time spent in counselling and/or direct pt care on unit) . 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 [facility] Director for [facility]ag Fwd Diagnoses Acute pancreatitis K85.90 Acute pancreatitis complication: no infection or necrosis Pancreatitis type: unspecified pancreatitis type PUD (peptic ulcer disease) K27.9
[2019-06-28] MEDS: topiramate 25 mg Tablet 50 MG PO (20:13)
[2019-06-28] MEDS: morphine 4 mg/mL SDV 1 mL 2 MG IVP (21:27)
[2019-06-29] VITALS (13 sets, daily range): BP systolic 119–138; BP diastolic 70–81; PULSE 55–71; RESP 16–18; TEMP 36.7–36.9; O2SAT 95–97
[2019-06-29] MEDS: LORazepam 1 mg Tablet PO ×4 (00:26→22:50)
[2019-06-29] MEDS: morphine 4 mg/mL SDV 1 mL 2 MG IVP ×3 (01:33→10:50)
[2019-06-29] MEDS: lactated ringers 1,000 ML 150 ML IV ×4 (02:35→23:04)
[2019-06-29] MEDS: citalopram 20 mg Tablet PO (05:41)
[2019-06-29] MEDS: pantoprazole 40 mg SDV IVP ×2 (08:12→20:27)
[2019-06-29] MEDS: metoprolol tartrate 25 mg Tablet PO ×2 (08:24→17:42)
[2019-06-29] MEDS: sucralfate 1 gm Tablet PO ×3 (08:24→20:28)
--- NOTE | 2019-06-29 11:00 | P.PN_ITS ---
Subjective Subjective: Interval history: Decreased analgesic doses yesterday in anticipation of discharge planning. Will advance to full liquid diet today. Had 710 mL urine output overnight. Reports pain is 5-6 out of 10 which seems to be quite an improvement from 9 out of 10 a couple of days ago. Encouraged to try oral analgesics primarily in anticipation of discharge which she is agreeabl e to. Will add [place] to try to wean off morphine. Medications: Reviewed: Yes Medication Review Details: Active Medications Generic Name Dose Route Start Last Admin Trade Name Freq PRN Reason Stop Dose Admin Acetaminophen 650 mg 06/21/19 11:17 06/23/19 08:50 Tylenol PO 650 mg Q6H PRN Administration Mild/Mod Pain Or Temp >/= 101 Citalopram Hydrobr omide 20 mg 06/22/19 06:00 06/29/19 05:41 Celexa PO 20 mg QAM BONITA Administration Hydromorphone HCl 1 mg 06/28/19 19:30 06/29/19 08:30 Dilaudid Tab PO 1 mg Q6H PRN Administration BREAKTHROUGH PAIN Lactated Ringer's 1,000 mls @ 100 m ls/hr 06/21/19 11:30 06/29/19 09:26 Lactated Ringers IV 150 mls/hr .Q10H BONITA Administration Lorazepam 1 mg 06/25/19 14:14 06/29/19 08:29 Ativan PO 1 mg TID PRN Administration ANXIETY Metoprolol Tartrat e 25 mg 06/21/19 18:00 06/29/19 08:24 Lopressor PO 25 mg BID BONITA Administration Morphine Sulfate 2 mg 06/28/19 16:50 06/29/19 10:50 Morphine IVP 2 mg Q4H PRN Administration SEVERE PAIN Naloxone HCl 0.1 mg 06/21/19 11:17 Narcan IVP Q2M PRN OPIATERV Olanzapine 10 mg 06/21/19 18:00 06/23/19 17:12 Zyprexa PO 10 mg QPM BONITA Administration Pantoprazole Sodiu m 40 mg 06/21/19 11:15 06/29/19 08:12 Protonix IVP 40 mg Q12H BONITA Administration Sucralfate 1 gm 06/21/19 15:00 06/29/19 08:24 Carafate PO 1 gm TID BONITA Administration Topiramate 50 mg 06/21/19 21:00 06/28/19 20:13 Topamax PO 50 mg BEDTIME BONITA Administration Zolpidem Tartrate 10 mg 06/21/19 21:00 06/28/19 20:14 Ambien PO 10 mg BEDTIME BONITA Administration baclofen Allergy (Unknown, Verified 04/16/19 08:04) Unknown codeine Allergy (Unknown, Verified 04/16/19 08:02) rash ondansetron [From Zofran] Allergy (Unknown, Verified 04/16/19 08:04) ALGY-Anaphylaxis prochlorperazine [From Compazine] Allergy (Unknown, Verified 04/16/19 08:04) Unknown metoclopramide [From Reglan] Allergy (Verified 04/24/19 13:01) ALGY-Hives Vitals/I&O/Wt Last Vital Signs Temp 98.5 F 06/29/19 08:00 Pulse 69 06/29/19 08:00 Resp 16 06/29/19 10:50 BP 138/81 06/29/19 08:00 Pulse Ox 95 06/29/19 08:00 06/28/19 06/29/19 06/29/19 22:59 06:59 14:59 Intake Total 1480 / 2960 955 / 3915 1480 / 1480 Output Total 1300 / 1300 / 2010 400 / 400 Balance 180 / 1660 245 / 1905 1080 / 1080 Weight last 48 hrs Weight 91.399 kg Weight 90.917 kg Physical Exam Const: COMMON NORMALS: no apparent distress and oriented x3 GENERAL APPEARANCE: cooperative and comfortable NUTRITIONAL APPEARANCE: obese centrally obese ORIENTATION/CONSCIOUSNESS: Yes awake HENMT: COMMON NORMALS: normocephalic, head/scalp atraumatic and hearing gross ly normal bilaterally HEAD & SCALP: normocephalic and atraumatic MOUTH: moist mucous membranes abnormal Details: parched Eye: COMMON NORMALS: PERRL, EOMs intact bilaterally and conjunctivae normal CONJUNCTIVA: Yes conjunctivae normal PUPIL: Yes PERRL Neck/C-Spine: COMMON NORMALS: full ROM GENERAL: Yes normal visual inspection and Yes trachea midline Resp: COMMON NORMALS: normal respiratory effort, no retractions, no use of accessory muscles and clear to auscultation bilaterally EFFORT & INSPECTION: Yes able to speak in complete sentences, Yes symmetric chest movement and No tac hypneic AUSCULTATION: clear to auscultation bilaterally Cardio: COMMON NORMALS: regular rate, regular rhythm, S1 normal heart sound, S2 normal heart sound and no murmurs RATE: regular rate RHYTHM: regular rhythm HEART SOUNDS: S1 normal and S2 normal GI: COMMON NORMALS: normal to inspection, nondistended, normoactive bowel sounds and soft to palpation INSPECTION: Yes central obesity PALPATION: Yes soft, Yes tender (Epigastric and right upper quadrant), No guarding and No rigid Extremity: COMMON NORMALS: normal to inspection, full ROM and no clubbing, cyanosis or edema; negative for no pedal edema Neuro: COMMON NORMALS: oriented x3, moves all extremities, no focal motor deficits and no sensory deficits noted Psych: COMMON NORMALS: mental status grossly normal, thought process normal, cooperative and speech normal SPEECH: Yes normal speech MOOD & AFFECT: Yes anxious THOUGHT PROCESS: normal thought process Skin: COMMON NORMALS: no rashes or lesions noted, no jaundice, no petechiae and no mottling GENERAL SKIN EXAM: no rashes or lesions noted Data : 06/28/19 05:30 06/28/19 05:30 A&P Assessment and plan (1) Acute pancreatitis: -noted findings consistent with acute pancreatitis on CT of the abdomen and pelvis, had a similar episode earlier this month that required hospitalization. -Lipase trending down (425->110->88). No pseudocyst on imaging -Pain control, bowel rest, IV fluid hydration, antiemetics as needed. Suspicious of pain seeking behavior given insistence on taking oral and IV pain medications at a particular schedule; appears comfortable even as she verbalizes a 9-10 out of 10 pain. Weaning off morphine in anticipation for d/c home -Had lipid panel done earlier this month, within normal limits -has tolerated CLD, will advance to FLD today Status: Acute Qualifiers: Acute pancreatitis complication: no infection or necrosis Pancreatitis type: unspecified pancreatitis type Qualified Code(s): K85.90 - Acute pancreatitis without necrosis or infection, unspecified Code(s): K85.90 - Acute pancreatitis without necrosis or infection, unspecified (2) PUD (peptic ulcer disease): -Had EGD done on 06/13/[address] 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; final patho logy pending but prelim results show ulceration with adjacent degenerating atypical cells -Continue PPI IV twice daily, Carafate -Noted significant drop in hemoglobin since discharge from 13.2->9.8, continue to monitor hemoglobin closely -Vital signs stable, continue to monitor -Pain control, antiemetics as needed Status: Acute Code(s): K27.9 - Peptic ulcer, site unspecified, unspecified as acute or chronic, without hemorrhage or perforation Additional A&P Information -HTN; continue oral antihypertensives, continue to monitor vital signs -Chronic diastolic CHF; Echo: EF=65%, no RWMA; no acute exacerbation -PTSD, anxiety, depression; f/u with psychiatry, continue meds -Morbid obesity: BMI-35 kg/m2 -Noted elevated liver function tests; status post cholecystectomy, unremarkable liver, no significant biliary dilatation -advance to FLD today -GI ppx with PPI -DVT ppx with SCDs, no AC due to bleeding risk from PUD -Dispo: home -Code status: FULL code -Anticipate discharge in the next 24 to 48 hours, can continue clear liquid diet for several more days with gradual advance in her diet as tolerated Attestations Medical Necessity Statement*: Patient requires hospitalization for continued pain control, pending improved oral intake/tolerance. Time Spent in Patient Care: 16 - 35 minutes (>than 50% of time spent in cou nselling and/or direct pt care on unit) . 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 [facility] [employer] for g Fwd Exam Comprehensive Diagnoses Acute pancreatitis K85.90 Acute pancreatitis complication: no infection or necrosis Pancreatitis type: unspecified pancreatitis type PUD (peptic ulcer disease) K27.9
[2019-06-29] MEDS: HYDROcodone-acetaminophen 5-325 mg Tablet 1 TAB PO ×2 (14:02→19:41)
[2019-06-29] MEDS: topiramate 25 mg Tablet 50 MG PO (20:28)
--- NOTE | 2019-06-29 23:07 | PC.NURSE ---
Patient complaining of abdominal pain. Rates pain at 10 out of 10. I think it's time for my Dilaudid. This nurse explained to patient that her Dilaudid has been decreased to 1mg by mouth. Patient anxious. Agreed to take Ativan 1mg by mouth with the 1mg of Dilaudid. Will monitor.
[2019-06-30] VITALS (9 sets, daily range): BP systolic 133–144; BP diastolic 74–85; PULSE 51–66; RESP 17–20; TEMP 36.4–37.1; O2SAT 94–99
[2019-06-30] MEDS: HYDROcodone-acetaminophen 5-325 mg Tablet 1 TAB PO ×4 (01:35→17:03)
--- NOTE | 2019-06-30 01:47 | PC.NURSE ---
Patient complaining of abdominal pain after ambulating to bathroom and back to bed. Rates pain 10 out of 10. Hydrocodone given for pain. Will monitor.
[2019-06-30] MEDS: lactated ringers 1,000 ML 150 ML IV ×2 (05:28→12:21)
[2019-06-30] MEDS: citalopram 20 mg Tablet PO (05:29)
--- NOTE | 2019-06-30 05:47 | PC.NURSE ---
Complaining of abdominal pain. Hydrocodone given. Will monitor.
[2019-06-30] MEDS: LORazepam 1 mg Tablet PO ×2 (07:31→17:02)
[2019-06-30] MEDS: sucralfate 1 gm Tablet PO ×3 (08:07→20:33)
[2019-06-30] MEDS: metoprolol tartrate 25 mg Tablet PO ×2 (08:07→17:02)
[2019-06-30] MEDS: pantoprazole 40 mg SDV IVP (08:26)
--- NOTE | 2019-06-30 12:55 | PM.PN ---
Subjective Subjective: Interval history: Patient seen and examined, resting in bed, states that she had some increased nausea and some emesis yesterday after having tomato soup at dinnertime. Seems to tolerate chicken soup much better which is what she had for lunch. Last dose of morphine was given yesterday at around 11 AM. She has been trying to control her pain with oral medications primarily. Is tolerating liquids quite well so we will discontinue IV fluid hydration at this time. Discussed possibility of discharge tomorrow which she is agreeable to. She would like to get some pain medicine, antiemetics and a letter to return to work on discharge. Encouraged to ambulate. Had 1975 mL urine output overnight. Medications: Reviewed: Yes Medication Review Details: Active Medications Generic Name Dose Route Start Last Admin Trade Name Freq PRN Reason Stop Dose Admin Acetaminophen 650 mg 06/21/19 11:17 06/23/19 08:50 Tylenol PO 650 mg Q6H PRN Administration Mild/Mod Pain Or Temp >/= 101 Hydrocodone Bitart /Acetaminophen 1 tab 06/29/19 12:41 06/30/19 11:26 [place] 5-325 Mg PO 1 tab Q4H PRN Administration BREAKTHROUGH PAIN Citalopram Hydrobr omide 20 mg 06/22/19 06:00 06/30/19 05:29 Celexa PO 20 mg QAM BONITA Administration Hydromorphone HCl 1 mg 06/28/19 19:30 06/30/19 07:32 Dilaudid Tab PO 1 mg Q6H PRN Administration BREAKTHROUGH PAIN Lorazepam 1 mg 06/25/19 14:14 06/30/19 07:31 Ativan PO 1 mg TID PRN Administration ANXIETY Metoprolol Tartrat e 25 mg 06/21/19 18:00 06/30/19 08:07 Lopressor PO 25 mg BID BONITA Administration Naloxone HCl 0.1 mg 06/21/19 11:17 Narcan IVP Q2M PRN OPIATERV Olanzapine 10 mg 06/21/19 18:00 06/23/19 17:12 Zyprexa PO 10 mg QPM BONITA Administration Pantoprazole Sodiu m 40 mg 06/21/19 11:15 06/30/19 08:26 Protonix IVP 40 mg Q12H BONITA Administration Sucralfate 1 gm 06/21/19 15:00 06/30/19 08:07 Carafate PO 1 gm TID BONITA Administration Topiramate 50 mg 06/21/19 21:00 06/29/19 20:28 Topamax PO 50 mg BEDTIME BONITA Administration Zolpidem Tartrate 10 mg 06/21/19 21:00 06/29/19 20:28 Ambien PO 10 mg BEDTIME BONITA Administration baclofen Allergy (Unknown, Verified 04/16/19 08:04) Unknown codeine Allergy (Unknown, Verified 04/16/19 08:02) rash ondansetron [From Zofran] Allergy (Unknown, Verified 04/16/19 08:04) ALGY-Anaphylaxis prochlorperazine [From Compazine] Allergy (Unknown, Verified 04/16/19 08:04) Unknown metoclopramide [From Reglan] Allergy (Verified 04/24/19 13:01) ALGY-Hives Vitals/I&O/Wt Last Vital Signs Temp 98.5 F 06/30/19 11:49 Pulse 62 06/30/19 11:49 Resp 18 06/30/19 11:49 BP 142/74 06/30/19 11:49 Pulse Ox 96 06/30/19 11:49 06/29/19 06/30/19 06/30/19 22:59 06:59 14:59 Intake Total 1480 / 3440 2075 / 5515 1000 / 1000 Output Total 1975 / 2725 Balance 1480 / 2690 100 / 2790 1000 / 1000 Weight last 48 hrs Weight 91.852 kg Weight 91.852 kg Weight 91.399 kg Physical Exam Const: COMMON NORMALS: no apparent distress and oriented x3 GENERAL APPEARANCE: cooperative and comfortable NUTRITIONAL APPEARANCE: obese centrally obese ORIENTATION/CONSCIOUSNESS: Yes awake HENMT: COMMON NORMALS: normocephalic, head/scalp atraumatic and hearing grossly normal bilaterally HEAD & SCALP: normocephalic and atraumatic MOUTH: moist mucous membranes abnormal Details: parched Eye: COMMON NORMALS: PERRL, EOMs intact bilaterally and conjunctivae normal CONJUNCTIVA: Yes conjunctivae normal PUPIL: Yes PERRL Neck/C-Spine: COMMON NORMALS: full ROM GENERAL: Yes normal visual inspection and Yes trachea midline Resp: COMMON NORMALS: normal respiratory effort, no retractions, no use of accessory muscles and clear to auscultation bilaterally EFFORT & INSPECTION: Yes able to speak in complete sentences, Yes symmetric chest movement and No tachypneic AUSCULTATION: clear to auscultation bilaterally Cardio: COMMON NORMALS: regular rate, regular rhythm, S1 normal heart sound, S2 normal heart sound and no murmurs RATE: regular rate RHYTHM: regular rhythm HEART SOUNDS: S1 normal and S2 normal GI: COMMON NORMALS: normal to inspection, nondistended, normoactive bowel sounds and soft to palpation INSPECTION: Yes central obesity PALPATION: Yes soft, Yes tender (Epigastric and right upper quadrant), No guarding and No rigid Extremity: COMMON NORMALS: normal to inspection, full ROM and no clubbing, cyanosis or edema; negative for no pedal edema Neuro: COMMON NORMALS: oriented x3, moves all extremities, no focal motor deficits and no sensory deficits noted Psych: COMMON NORMALS: mental status grossly normal, thought process normal, cooperative and speech normal SPEECH: Yes normal speech MOOD & AFFECT: Yes anxious THOUGHT PROCESS: normal thought process Skin: COMMON NORMALS: no rashes or lesions noted, no jaundice, no petechiae and no mottling GENERAL SKIN EXAM: no rashes or lesions noted Data : 06/28/19 05:30 06/28/19 05:30 A&P Assessment and plan (1) Acute pancreatitis: -noted findings consistent with acute pancreatitis on CT of the abdomen and pelvis, had a similar episode earlier this month that required hospitalization. -Lipase trending down (425->110->88). No pseudocyst on imaging -Pain control, bowel rest, IV fluid hydration, antiemetics as needed. Suspicious of pain seeking behavior given insistence on taking oral and IV pain medications at a particular schedule; appears comfortable even as she verbalizes a 9-10 out of 10 pain. Discontinue morphine in anticipation for d/c home -Had lipid panel done earlier this month, within normal limits -on FLD Status: Acute Qualifiers: Acute pancreatitis complication: no infection or necrosis Pancreatitis type: unspecified pancreatitis type Qualified Code(s): K85.90 - Acute pancreatitis without necrosis or infection, unspecified Code(s): K85.90 - Acute pancreatitis without necrosis or infection, unspecified (2) PUD (peptic ulcer disease): -Had EGD done on 06/13/[address] 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; final pathology pending but prelim results show ulceration with adjacent degenerating atypical cells -Continue PPI twice daily, Carafate -Noted significant drop in hemoglobin since discharge from 13.2->9.8, continue to monitor hemoglobin closely -Vital signs stable, continue to monitor -Pain control, antiemetics as needed Status: Acute Code(s): K27.9 - Peptic ulcer, site unspecified, unspecified as acute or chronic, without hemorrhage or perforation Additional A&P Information -HTN; continue oral antihypertensives, continue to monitor vital signs -Chronic diastolic CHF; Echo: EF=65%, no RWMA; no acute exacerbation -PTSD, anxiety, depression; f/u with psychiatry, continue meds -Morbid obesity: BMI-35 kg/m2 -Noted elevated liver function tests; status post cholecystectomy, unremarkable liver, no significant biliary dilatation -on FLD -GI ppx with PPI -DVT ppx with SCDs, no AC due to bleeding risk from PUD -Dispo: home -Code status: FULL code -Anticipate discharge tomorrow if pain tolerable, tolerating oral intake Attestations Medical Necessity Statement*: Patient requires hospitalization for continued pain management, improved PO tolerance in anticipation of discharge. Time Spent in Patient Care: 16 - 35 minutes (>than 50% of time spent in counselling and/or direct pt care on unit). 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 Registered [employer]or for Michaelag Fwd Diagnoses Acute pancreatitis K85.90 Acute pancreatitis complication: no infection or necrosis Pancreatitis type: unspecified pancreatitis type PUD (peptic ulcer disease) K27.9
[2019-06-30] MEDS: topiramate 25 mg Tablet 50 MG PO (20:32)
[2019-06-30] MEDS: pantoprazole DR 40 mg Tablet PO (20:33)
--- NOTE | 2019-06-30 21:35 | PC.NURSE ---
Upon reassessment of pain patient is sleeping with eyes closed. No outward s/s of pain at this time.
[2019-07-01] VITALS (9 sets, daily range): BP systolic 102–144; BP diastolic 71–86; PULSE 55–71; RESP 14–20; TEMP 36.7–37.4; O2SAT 95–98
[2019-07-01] MEDS: LORazepam 1 mg Tablet PO ×3 (01:24→17:30)
[2019-07-01] MEDS: HYDROcodone-acetaminophen 5-325 mg Tablet 1 TAB PO ×5 (01:24→19:47)
[2019-07-01] MEDS: pantoprazole DR 40 mg Tablet PO (07:50)
[2019-07-01] MEDS: metoprolol tartrate 25 mg Tablet PO ×2 (07:50→17:09)
[2019-07-01] MEDS: citalopram 20 mg Tablet PO (07:50)
[2019-07-01] MEDS: sucralfate 1 gm Tablet PO ×3 (07:50→19:48)
--- NOTE | 2019-07-01 11:10 | P.PN_ITS ---
Subjective Subjective: Interval history: Patient reports that after her last discharge she was doing well and even went to work but unfortunately reports 2 days later her pain started to worsen and she again started having poor oral intake ultimately leading to readmission. This morning she reports 8 out of 10 epigastric and right upper quadrant area pain. She noted to have agranulocytosis which is likely medication induced. On her presentation her WBC was 10.3 with hemoglobin 13.2 and platelets 486 which is a significant change from lab work performed on 06/22/2019 and at this point I am not sure lab work on 06/20/2019 can be trusted. She was started on Topamax and Zyprexa with first dose given on 06/20 evening time and I doubt this medications can cause significant agranulocytosis and drop in hemoglobin next day but I have discontinued them anyways. Protonix can definitely play a role assuming that patient's initial lab work on 06/19 is not valid. Patient denies melena or hematochezia. Reports tolerating clear liquid diet well but does not want to try more substantial food as it will likely cause her to be in pain. Medications: Reviewed: Yes Medication Review Details: Active Medications Generic Name Dose Route Start Last Admin Trade Name Freq PRN Reason Stop Dose Admin Acetaminophen 650 mg 06/21/19 11:17 06/23/19 08:50 Tylenol PO 650 mg Q6H PRN Administration Mild/Mod Pain Or Temp >/= 101 Hydrocodone Bitart /Acetaminophen 1 tab 06/29/19 12:41 06/30/19 11:26 Mobile 5-325 Mg PO 1 tab Q4H PRN Administration BREAKTHROUGH PAIN Citalopram Hydrobr omide 20 mg 06/22/19 06:00 06/30/19 05:29 Celexa PO 20 mg QAM BONITA Administration Hydromorphone HCl 1 mg 06/28/19 19:30 06/30/19 07:32 Dilaudid Tab PO 1 mg Q6H PRN Administration BREAKTHROUGH PAIN Lorazepam 1 mg 06/25/19 14:14 06/30/19 07:31 Ativan PO 1 mg TID PRN Administration ANXIETY Metoprolol Tartrat e 25 mg 06/21/19 18:00 06/30/19 08:07 Lopressor PO 25 mg BID BONITA Administration Naloxone HCl 0.1 mg 06/21/19 11:17 Narcan IVP Q2M PRN OPIATERV Olanzapine 10 mg 06/21/19 18:00 06/23/19 17:12 Zyprexa PO 10 mg QPM BONITA Administration Pantoprazole Sodiu m 40 mg 06/21/19 11:15 06/30/19 08:26 Protonix IVP 40 mg Q12H BONITA Administration Sucralfate 1 gm 06/21/19 15:00 06/30/19 08:07 Carafate PO 1 gm TID BONITA Administration Topiramate 50 mg 06/21/19 21:00 06/29/19 20:28 Topamax PO 50 mg BEDTIME BONITA Administration Zolpidem Tartrate 10 mg 06/21/19 21:00 06/29/19 20:28 Ambien PO 10 mg BEDTIME BONITA Administration baclofen Allergy (Unknown, Verified 04/16/19 08:04) Unknown codeine Allergy (Unknown, Verified 04/16/19 08:02) rash ondansetron [From Zofran] Allergy (Unknown, Verified 04/16/19 08:04) ALGY-Anaphylaxis prochlorperazine [From Compazine] Allergy (Unknown, Verified 04/16/19 08:04) Unknown metoclopramide [From Reglan] Allergy (Verified 04/24/19 13:01) ALGY-Hives Vitals/I&O/Wt Last Vital Signs Temp 98.0 F 07/01/19 07:48 Pulse 71 07/01/19 07:48 Resp 18 07/01/19 07:50 BP 128/80 07/01/19 07:48 Pulse Ox 98 07/01/19 07:48 06/30/19 07/01/19 07/01/19 22:59 06:59 14:59 Intake Total 400 / 2000 720 / 720 Balance 400 / 2000 720 / 720 Weight last 48 hrs Weight 90.492 kg Weight 91.852 kg Weight 91.852 kg Data : 06/28/19 05:30 06/28/19 05:30 A&P Assessment and plan (1) Acute pancreatitis: This appears to be related to local ulcer related duodenal inflammation. Her lipase is improving. If patient continues to have pain we may need to consider EUS with celiac block. Status: Acute Qualifiers: Acute pancreatitis complication: no infection or necrosis Pancreatitis type: unspecified pancreatitis type Qualified Code(s): K85.90 - Acute pancreatitis without necrosis or infection, unspecified Code(s): K85.90 - Acute pancreatitis without necrosis or infection, unspecified (2) PUD (peptic ulcer disease): -Had EGD done on 06/13/[address] Díaz with findings of 2 cm gastric ulcer at GJ anastomosis which is commonly happens especially since patient was n ot on any H2 ondina or PPI prior to admission but she also history of gastric ulcer in the past prior to surgery; final pathology pending but prelim results show ulceration with adjacent degenerating atypical cells -We may need to discontinue Protonix as it likely is the cause of agranulocytosis. -Noted significant drop in hemoglobin since discharge from 13.2->9.8, continue to monitor hemoglobin closely -Vital signs stable, continue to monitor -Pain control, antiemetics as needed Status: Acute Code(s): K27.9 - Peptic ulcer, site unspecified, unspecified as acute or chronic, without hemorrhage or perforation (3) Agranulocytosis: This is likely medication induced and Protonix is currently prime suspect. Discussed with pharmacy and we will try to find out if there is any other proton pump inhibitor can be used without causing agranulocytosis. H2 blockers can def initely cause it. Vitamin B12 and folate deficiency can also play a role. Status: Acute Code(s): D70.9 - Neutropenia, unspecified Additional A&P Information -HTN; continue oral antihypertensives, continue to monitor vital signs -Chronic diastolic CHF; Echo: EF=65%, no RWMA; no acute exacerbation -PTSD, anxiety, depression; f/u with psychiatry, continue meds -Morbid obesity: BMI-35 kg/m2 -Noted elevated liver function tests; status post cholecystectomy, unremarkable liver, no significant biliary dilatation -on FLD -GI ppx with PPI -DVT ppx with SCDs, no AC due to bleeding risk from PUD -Dispo: home -Code status: FULL code PLAN: Risks and benefits of Protonix treatment was discussed with the patient at length and she agrees to proceed with treatment plan. Discussed briefly with Dr. Díaz and I agree that patient will unlikely benefit from repeat endoscopy. It appears that Dexilant does not cause agranulocytosis and therefore I will discontinue Protonix with plan to proceed with outpatient Dexilant. It is very much possible that this adverse reaction is related to whole class of medication and can happen with Dexilant as well. Continue Carafate for now. Continue clear liquid diet. Check B12, folate, celiac disease work-up and BERNARD. We will also decrease Celexa dose to 10 mg daily Attestations Medical Necessity Statement*: Patient with acute anemia as well as agranulocytosis requires close inpatient monitoring, treatment evaluation until deemed safe for discharge. 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 Lead Systems Engineer for [facility] Fwd Diagnoses Acute pancreatitis K85.90 Acute pancreatitis complication: no infection or necrosis Pancreatitis type: unspecified pancreatitis type PUD (peptic ulcer disease) K27.9 Agranulocytosis D70.9
[2019-07-01 12:02] LABS: Ferritin 84 ng/mL (15-150); Iron 37 ug/dL (37-145); Percent Saturation 20.4 % (20-50); Total Iron Binding Capacity 181 mcg/dl; Unsaturated Iron Binding 144 ug/dL (112-347)
[2019-07-01 12:18] LABS: Vitamin B12 848 pg/mL (232-1245)
[2019-07-01 12:19] LABS: Folate Level 12.3 ng/mL (4.8-37.3)
[2019-07-02] VITALS (8 sets, daily range): BP systolic 103–125; BP diastolic 62–80; PULSE 54–65; RESP 14–20; TEMP 36.6–37.1; O2SAT 94–99
[2019-07-02] MEDS: LORazepam 1 mg Tablet PO ×2 (02:37→11:19)
[2019-07-02] MEDS: HYDROcodone-acetaminophen 5-325 mg Tablet 1 TAB PO ×3 (02:37→13:20)
[2019-07-02] MEDS: citalopram 20 mg Tablet 10 MG PO (05:10)
[2019-07-02] MEDS: metoprolol tartrate 25 mg Tablet PO (07:51)
[2019-07-02] MEDS: sucralfate 1 gm Tablet PO ×2 (07:51→15:58)
[2019-07-02 12:40] LABS: Anti-Nuclear Antibody Screen NEGATIVE (NEGATIVE)
[2019-07-02 13:28] LABS: Basophils % 0.8 %; Eosinophils # 0.1 10^3/uL (0.0-0.8); Eosinophils % 2.6 %; Hematocrit 31.6 % (37.0-47.0); Hemoglobin 9.8 g/dL (11.5-15.3); Lymphocytes # 0.7 10^3/uL (0.8-4.8); Lymphocytes % 18.3 %; Mean Corpuscular Hemoglobin 30.9 pg (28.0-34.0); Mean Corpuscular Volume 99.7 fL (81-99); Mean Platelet Volume 10.3 fL (7.4-10.4); Monocytes # 0.3 10^3/uL (0.2-0.9); Neutrophils # 2.7 10^3/uL (1.8-7.7); Neutrophils % 70.8 %; Nucleated Red Blood Cells % 0 %; Platelet Count 145 10^3/cmm (130-400); Red Blood Count 3.17 10^6/uL (4.1-5.3); Red Cell Distribution Width 15.4 % (12.1-15.1); White Blood Count 3.9 10^3/uL (4.0-10.0)
[2019-07-02 13:47] LABS: Alanine Aminotransferase 14 U/L (0-33); Albumin Level 2.7 g/dL (3.5-5.2); Alkaline Phosphatase 148 IU/L (35-105); Anion Gap 15.2 (5-19); Aspartate Amino Transferase 15 U/L (0-32); Blood Urea Nitrogen 8 mg/dL (6-20); Calcium 8.5 mg/dL (8.5-10.5); Carbon Dioxide 20 mmol/L (22-29); Chloride 111 mmol/L (98-107); Globulin 1.9 g/dL (1.3-4.6); Glucose 108 mg/dL (65-115); Osmolality Calculated 290 mOsm/kg (285-295); Potassium 4.2 mmol/L (3.5-5.1); Sodium 142 mmol/L (136-145); Total Bilirubin 0.2 mg/dL (0.15-1.2); Total Protein 4.6 g/dL (6.6-8.7)
--- NOTE | 2019-07-02 15:01 | P.DS_ITS ---
Discharge Providers Date of Admission: 06/21/19 09:18 Date of Discharge: July 02, 2019 Attending Provider at Admission: Susanna Murphy DO Attending Provider at Discharge: Modesto Nolan MD Primary Care Provider: Rosi Shell NP Diagnoses at Discharge Discharge Diagnosis (1) Acute pancreatitis: Status: Acute Qualifiers: Acute pancreatitis complication: no infection or necrosis Pancreatitis type: unspecified pancreatitis type Qualified Code(s): K85.90 - Acute pancreatitis without necrosis or infection, unspecified (2) PUD (peptic ulcer disease): Status: Acute (3) Agranulocytosis: Status: Acute Reason for Visit Reason for Visit: Reason For Visit: abd pain/n/v Hospital Course Discharge Summary: Patient with recently diagnosed 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 Protonix was discontinued and her blood count today significantly improved. Her neutrophil count recovered. Patient continues to have pain which described as moderate to at times severe and feels comfortable to be dismissed home as she tolerates clear liquid diet well. We will discharge patient on oral Dexilant as it appears to be the only PPI not associated with agranulocytosis although this could possibly be class related therefore I will request CBC check in several days prior to primary care physician follow-up. I will continue rest of the medications. Should patient's pain continue she will need to be transferred to [facility] where EUS with celiac block can be performed. I have offered patient to be transferred to [place] today for procedure to be performed but she prefers to go home and give it another week or so and if she is not improving she will contact her physician or present to ER. I will request outpatient follow-up with primary care physician within next 4 to 7 days. 30 tablets of [place] will be provided which should be sufficient until she sees her primary care physician. She is asking for a note for work and this will be provided. Physical Exam Const: COMMON NORMALS: no apparent distress and oriented x3 Resp: COMMON NORMALS: normal respiratory effort and clear to auscultation bilaterally AUSCULTATION: clear to auscultation bilaterally Cardio: COMMON NORMALS: regular rate, regular rhythm and S2 normal heart sound RATE: regular rate RHYTHM: regular rhythm HEART SOUNDS: S2 normal OTHER: No lower extremity edema GI: COMMON NORMALS: soft to palpation PALPATION: Yes soft, No firm, Yes tender (Mostly epigastric and right upper quadrant), No guarding, No rigid and No rebound tenderness present Neuro: COMMON NORMALS: oriented x3 and no focal motor deficits Discharge Data Data Completed and Pending: Completed Studies During Hospitalization Category Date Time Status CT abdomen pelvis w con* [id number] Urge nt Cat Scan 06/21/19 03:13 Completed XR chest 1V tamy ble [id number] Routine Exams 06/24/19 08:44 Completed Pending at discharge Category Date Time Status BERNARD Screen w/ Ref demi Routine Lab 07/01/19 10:28 Results Celiac Disease Di agniostic [place] Rout ine Lab 07/01/19 10:28 Received Complete Blood Co unt w/Auto AM LABS Lab 07/03/19 04:00 Ordered Complete Blood Co unt w/Auto AM LABS Lab 07/04/19 04:00 Ordered Complete Blood Co unt w/Auto AM LABS Lab 07/05/19 04:00 Ordered Comprehensive Met abolic Panel AM LA BS Lab 07/03/19 04:00 Ordered Comprehensive Met abolic Panel AM LA BS Lab 07/04/19 04:00 Ordered Comprehensive Met abolic Panel AM LA BS Lab 07/05/19 04:00 Ordered Labs from last 24 hours 07/02/19 07/02/19 07/01/19 13:18 13:18 10:28 WBC 3.9 L RBC 3.17 L Hgb 9.8 L Hct 31.6 L MCV 99.7 H MCH 30.9 MCHC 31.0 RDW 15.4 H Plt Count 145 MPV 10.3 Neut % (Auto) 70.8 Lymph % (Auto) 18.3 [place] % (Auto) 7.0 Eos % (Auto) 2.6 Baso % (Auto) 0.8 Neut # (Auto) 2.7 Lymph # (Auto) 0.7 L [place] # (Auto) 0.3 Eos # (Auto) 0.1 Baso # (Auto) 0.0 Nucleated RBC % (a uto) 0 Nucleated RBCs # 0.0 Sodium 142 Potassium 4.2 Chloride 111 H Carbon Dioxide 20 L Anion Gap 15.2 BUN 8 Creatinine 1.0 H GFR Calculation 60.0 L Glucose 108 Calculated Osmolal ity 290 Calcium 8.5 Total Bilirubin 0.2 AST 15 ALT 14 Alkaline Phosphata se 148 H Total Protein 4.6 L Albumin 2.7 L Globulin 1.9 BERNARD Screen Negative Vitals: Last Vital Signs Temp 98.2 F 07/02/19 11:30 Pulse 54 L 07/02/19 11:30 Resp 16 07/02/19 11:30 BP 104/62 07/02/19 11:30 Pulse Ox 96 07/02/19 11:30 Discharge Plan Discharge Patient Disposition: Home, Self-Care Condition: Stable Prescriptions: New hydrocodone-acetaminophen 5-325 mg Tablet 1 tab PO Q4H PRN (Reason: Breakthrough Pain) Qty: 30 RF: 0 Dexilant 60 mg capsule,biphase delayed releas 60 mg PO DAILY Qty: 30 RF: 0 Continued lorazepam 1 mg tablet 1 mg PO TID PRN (Reason: anxiety) Qty: 90 RF: 4 amlodipine 5 mg Tablet 5 mg PO DAILY Qty: 30 RF: 0 sucralfate 1 gram Tablet 1 g PO TID RF: 0 olanzapine 10 mg Tablet 10 mg PO QPM RF: 0 Topamax 50 mg Tablet 50 mg PO BEDTIME RF: 0 Celexa 20 mg tablet 20 mg PO QAM RF: 0 Ambien 10 mg tablet 10 mg PO BEDTIME RF: 0 metoprolol tartrate 25 mg Tablet 25 mg PO BID Qty: 60 RF: 0 Discontinued pantoprazole 40 mg Tablet,Delayed Release (Dr/Ec) 40 mg PO BID Qty: 60 RF: 0 Discharge Orders: Discharge Order (Routine); Ordered 07/02/19 Ordered By: Modesto Nolan Other Ambulatory Orders: Complete Blood Count w/Auto (Routine) Timeframe: 3 Days Location: Determined by Patient Ordered By: Modesto Nolan Referrals: Rosi Shell NP [Primary Care Provider] - Discharge Diet: Advance as tolerated Discharge Activity: Increase activity as tolerated Activity Restrictions/Additional Instructions: Please call your doctor or present to emergency department if your condition worsens or you develop diarrhea, lightheadedness, fatigue or see blood in your stool or black stool. Please note that you will require to be seen by GI specialist and will need to be transferred to a larger facility to be seen by GI specialist for consideration of EUS and celiac block should your condition worsen and you present to ER. Outpatient GI specialist follow-up will be recommended. Discharge Attestations Time Spent in Discharge Care*: greater than 30 min Quality Metrics Clinical Quality Measures During this hospital stay, did patient experience: None 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 Vascular Surgery Physician for [facility] Fwd Diagnoses Acute pancreatitis K85.90 Acute pancreatitis complication: no infection or necrosis Pancreatitis type: unspecified pancreatitis type PUD (peptic ulcer disease) K27.9 Agranulocytosis D70.9
--- NOTE | 2019-07-02 15:29 | PC.SOCIAL ---
Note given to patient per physician request to follow up with primary care provider to determine when she may return to work and if any restrictions are needed. She can give this to her employer. It has dates she was hospitalized along with recommendations to follow up within one week for further instructions as noted above.
[2019-07-04 06:11] LABS: Immunoglobulin A 129 mg/dL (47-310)
[2019-07-04 14:20] LABS: Tissue Transglutaminase IgA Ab <1 U/mL; Tissue transglutaminase Ab.IgG 5 U/mL
[2019-07-05 15:56] LABS: Gliadin Ab.IgA 7 U (<20); Gliadin Ab.IgG 9 U (<20)
== END 2019-07-02 16:10 | disposition home or self-care (01) | DRG 439 ==
LOC: ER 06-21 05:14 → MEDSURG 06-22 05:04
PROVIDERS: Family Medicine; Admitting Provider Family Medicine; Emergency Provider Emergency Medicine; PCP Nurse Practitioner Family; Visit Provider Internal Medicine
DX: K85.90 Acute pancreatitis without necrosis or infection, unspecified (principal); I50.32 Chronic diastolic (congestive) heart failure; F33.9 Major depressive disorder, recurrent, unspecified; F43.12 Post-traumatic stress disorder, chronic; F41.9 Anxiety disorder, unspecified; I11.0 Hypertensive heart disease with heart failure; K25.9 Gastric ulcer, unspecified as acute or chronic, without hemorrhage or perforation; Z87.891 Personal history of nicotine dependence; G47.00 Insomnia, unspecified; E66.01 Morbid (severe) obesity due to excess calories; Z68.35 Body mass index [BMI] 35.0-35.9, adult; D70.9 Neutropenia, unspecified; Z98.84 Bariatric surgery status
CPT/HCPCS: 12345; 36415; 36569; 36592; 71045; 74177; 80053; 81001; 82607; 82728; 82746; 82784; 83516; 83540; 83550; 83690; 84703; 85025; 86038; 90471; 90686; 96372; 96374; 96375; 99283; C9113; J1170; J1885; J2270; J2550; J7030; Q9967

== ENCOUNTER 2019-07-05 06:09 | Emergency (ER) | payer SELFPAY ==
[2019-07-05 06:16] VITALS: PULSE 131; RESP 20; TEMP 36.8; O2SAT 98; BMI 31.7
--- NOTE | 2019-07-05 06:18 | W.ED.ABDPA2 ---
Documented by User: Lia May 07/05/19 07:37 HPI - Abdominal Pain General: Chief Complaint: Abdominal Pain Stated Complaint: Throwing up Time Seen by Provider: 07/05/19 06:15 History of Present Illness: HPI narrative: Threese is a nice 43-year-old female who comes in with complaints of upper abdominal pain and vomiting. She states that she was recently in the hospital 11 days for pancreatitis. She is been out approximately 3 days. She started vomiting about 24 hours ago it was noted to be clear then bilious and now she has some blood tinge to it. She is not had any blood in her stools or black tarry stools. She has chronic loose stools but not what she would call diarrhea and she believes this is secondary to her chronic bland diet. She denies any chest pain or shortness of breath. She denies any fever or chills. Patient states that sometimes this makes her anxious and she will get what she believes is chest discomfort but thinks this is more likely secondary to the burning in her esophagus from vomiting. Patient states she is had episodes of pancreatitis multiple times in the past and that is what this feels like. She is unaware of what causes her pancreatitis. She does not consume alcohol, she does not have high triglycerides and she has had her gallbladder removed. Associated Symptoms: Reports diarrhea, hematemesis, nausea and vomiting; Denies chills, coffee ground emesis, constipation, GI cramping, dysuria, fever(s), hematochezia, hematuria, melena and syncope Review of Systems General: Reports: other (negative unless marked) Const: Denies: fever, chills, body aches, fatigue, malaise or diaphoresis Eyes: Denies: change in vision or blurry vision ENMT: Denies: throat pain, painful swallowing, hoarseness, ear pain, ear discharge, Change in hearing or nasal discharge Card: Denies: chest pain, palpitations, irregular heart rhythm, syncope, pre-syncope, shortness of breath on exertion or shortness of breath when lying down Resp: Denies: productive cough, non-productive cough, wheezing, coughing up blood or chest congestion GI: Reports: abdominal pain, nausea, vomiting, vomiting blood and diarrhea; Denies: coffee grounds in vomit, constipation, cramping, blood in stool or black tarry stool : Denies: flank pain, painful urination, urinary frequency, urinary urgency, decreased urine ouput, urinary incontinence or blood in urine Musc: Denies: neck pain, back pain, extremity pain, extremity swelling, joint pain, joint swelling, joint warmth or joint stiffness Skin/Breast: Denies: rash, skin tenderness or yellow skin Neuro: Denies: headache, numbness in extremities, weakness in extremities, changes in sensation, lack of coordination, difficulty walking, dizziness, vertigo or confusion Endo: Denies: excessive thirst, tired all the time, cold intolerance, excessive sweating, flushing or hot flashes Gomez/Lymph: Denies: easy bruising, easy bleeding, petechiae or enlarged lymph nodes All/Imm: Denies: hives, throat swelling, tongue swelling, facial swelling or acute wheezing PFSH ED PFSH: Social History Smoking and tobacco status: former smoker Alcohol intake: never Household members: children Housing: House Physical Exam Const: COMMON NORMALS: oriented x3, no limitations, healthy appearing and well nourished EXAM LIMITATIONS: no altered mental status GENERAL APPEARANCE: cooperative, well kempt, well developed and anxious ORIENTATION/CONSCIOUSNESS: Yes awake HENMT: COMMON NORMALS: normocephalic, head/scalp atraumatic, hearing grossly normal bilaterally, external ears normal, EAC's normal, external nose normal and moist oral mucous membranes HEAD & SCALP: normal to inspection, normocephalic and atraumatic FACE & SINUS: normal facial exam and face symmetric NOSE: external nose normal and nares normal EXTERNAL EAR: Yes external ears normal EXTERNAL AUDITORY CANAL: EAC's normal MOUTH: oral and palatal mucosa normal and tongue normal Eye: COMMON NORMALS: PERRL, EOMs intact bilaterally, conjunctivae normal and no scleral icterus GENERAL EYE: normal appearance of both eyes and normal light reflex CONJUNCTIVA: Yes conjunctivae normal SCLERA: sclerae normal CORNEA: Yes corneas normal PUPIL: Yes PERRL DIRECT OPHTHALMOSCOPY: Yes normal light reflex Neck/C-Spine: COMMON NORMALS: full ROM, no lymphadenopathy, supple, no meningeal signs and no JVD GENERAL: Yes normal visual inspection and Yes trachea midline CERVICAL SPINE: Yes cervical ROM normal Chest: COMMONS NORMALS: inspection of chest normal and palpation of chest normal Resp: COMMON NORMALS: normal respiratory effort, no retractions, no use of accessory muscles and clear to auscultation bilaterally EFFORT & INSPECTION: Yes able to speak in complete sentences AUSCULTATION: clear to auscultation bilaterally Cardio: COMMON NORMALS: no JVD, regular rhythm, S1 normal heart sound, S2 normal heart sound, no gallops, no clicks, no murmurs and no rub JUGULAR VENOUS DISTENTION: no JVD RATE: tachycardic RHYTHM: regular rhythm HEART SOUNDS: S1 normal and S2 normal GI: COMMON NORMALS: soft to palpation and no hepatosplenomegaly PALPATION: Yes soft, Yes tender Details: LUQ and RUQ, No guarding, No rigid, Yes no hepatosplenomegaly, No mass, No pulsatile mass and No rebound tenderness present : COMMON NORMALS: Yes no CVA tenderness BLADDER/KIDNEY EXAM: Yes no CVA tenderness Back/Pelvis: COMMON NORMALS: no CVA tenderness, thoracic and lumbar spine normal to inspection, no thoracic nor lumbar tenderness and thoraco-lumbar ROM normal Extremity: COMMON NORMALS: normal to inspection, full ROM, normal capillary refill, no joint enlargement, no clubbing, cyanosis or edema and no calf tenderness Neuro: COMMON NORMALS: oriented x3, CN's II-XII intact bilaterally, moves all extremities, no focal motor deficits and no sensory deficits noted MENINGEAL SIGNS: Yes no meningeal signs Psych: COMMON NORMALS: mental status grossly normal, thought process normal, cooperative, affect normal, speech normal and activity/motor behavior normal APPEARANCE: Yes well kempt SPEECH: Yes normal speech THOUGHT PROCESS: normal thought process Skin: COMMON NORMALS: no rashes or lesions noted, skin turgor normal, no jaundice, no petechiae and no mottling GENERAL SKIN EXAM: no rashes or lesions noted and turgor normal Course Vital Signs: Vital signs: Vital Signs Temperature 98.3 F 07/05/19 06:16 Pulse Rate 76 07/05/19 13:15 Respiratory Rate 15 07/05/19 13:15 Blood Pressure 155/84 07/05/19 13:15 Pulse Oximetry 98 07/05/19 13:15 MDM - Abdominal Pain MDM Narrative: Medical decision making narrative: Benson Saleh is a 43-year-old female who comes in with recurrent abdominal pain consistent to pancreatitis and peptic ulcer disease she is had in the past. She has had a small amount of blood that she is vomited up as well. She denies any blood in her stools. She is no fevers chills cough or otherwise. Patient symptoms are concerning for recurrent pancreatitis, peptic ulcer disease, perforated ulcer, esophagitis among many others. We will review old charts as well as initiate work-up for possible bowel obstruction as well as any other complications such as perforated ulcer. CT scan abdomen and pelvis to be necessary and multiple medications to get her symptoms under control. Apparently she has had difficulty in the past with certain nausea medicines which she states she is tolerated Haldol which I have confirmed by review of her chart and she also gets Ativan for her nausea. Lab Data: Attestation: I reviewed the patient's lab results. Labs: Lab Results 07/05/19 07/05/19 07/05/19 Range/Units 06:33 06:33 06:33 WBC 3.6 L (4.0-10.0) 10^3/ uL RBC 3.92 L (4.1-5.3) 10^6/u L Hgb 12.0 (11.5-15.3) g/dL Hct 40.4 (37.0-47.0) % MCV 103.1 H (81-99) fL MCH 30.6 (28.0-34.0) pg MCHC 29.7 L (30.0-36.0) g/dL RDW 15.5 H (12.1-15.1) % Plt Count 162 (130-400) 10^3/c mm MPV 10.8 H (7.4-10.4) fL Neut % (Auto) 76.5 % Lymph % (Auto) 17.0 % [place] % (Auto) 4.1 % Eos % (Auto) 0.8 % Baso % (Auto) 1.1 % Neut # (Auto) 2.8 (1.8-7.7) 10^3/u L Lymph # (Auto) 0.6 L (0.8-4.8) 10^3/u L [place] # (Auto) 0.2 (0.2-0.9) 10^3/u L Eos # (Auto) 0.0 (0.0-0.8) 10^3/u L Baso # (Auto) 0.0 (0.0-0.1) 10^3/u L Nucleated RBC % (a uto) 0 % Nucleated RBCs # 0.0 /100WBC Sodium 142 (136-145) mmol/L Potassium 3.9 (3.5-5.1) mmol/L Chloride 109 H (98-107) mmol/L Carbon Dioxide 14 L (22-29) mmol/L Anion Gap 22.9 H (5-19) BUN 7 (6-20) mg/dL Creatinine 1.1 H (0.5-0.9) mg/dL GFR Calculation 53.7 L (90-130) mL/min Glucose 143 H (65-115) mg/dL Calculated Osmolal ity 292 (285-295) mOsm/k g Lactic Acid (0.5-2.2) mmol/L Lactic Acid (Sepsi s) (0.5-2.2) mmol/L Calcium 9.2 (8.5-10.5) mg/dL Magnesium 1.9 (1.7-2.3) mg/dL Total Bilirubin 0.2 (0.15-1.2) mg/dL AST 18 (0-32) U/L ALT 15 (0-33) U/L Alkaline Phosphata se 184 H (35-105) IU/L Troponin I 6 Hour (0-10) ng/mL Troponin I Hi Sens Del (0-12) ng/L Troponin T Baselin e 10 (0-10) ng/mL Troponin T 120 Min [place] (0-10) ng/mL Delta Troponin T (0-10) ABS# Total Protein 5.9 L (6.6-8.7) g/dL Albumin 3.5 (3.5-5.2) g/dL Globulin 2.4 (1.3-4.6) g/dL Triglycerides 138 (0-150) mg/dL Cholesterol 105 (0-200) mg/dL LDL Cholesterol, C alc 36 L (50-129) mg/dL HDL Cholesterol 41 L (60-100) mg/dL LDL/HDL Ratio 0.88 (0.00-3.22) RATI O Cholesterol/HDL Ra julisa 2.56 (0.0-4.40) mg/dL Lipase 78 H (13-60) U/L Urine Color (Yellow) Urine Appearance (CLEAR) Urine pH (5-7) Ur Specific Gravit y (1.005-1.030) Urine Protein (Negative) Urine Glucose (UA) (Normal) Urine Ketones (Negative) Urine Blood (Negative) Urine Nitrate (Negative) Urine Bilirubin (NEGATIVE) Urine Urobilinogen (Negative) mg/dL Ur Leukocyte Stephanie ase (Negative) Urine RBC (0-2) /hpf Urine WBC (0-5) /hpf Ur Squamous Epith Cells (0-5) Urine Bacteria (NONE) Urine Mucus Ethyl Alcohol < 10 (0-10) mg/dL 07/05/19 07/05/19 07/05/19 Range/Units 06:50 07:44 08:39 WBC (4.0-10.0) 10^3/ uL RBC (4.1-5.3) 10^6/u L Hgb (11.5-15.3) g/dL Hct (37.0-47.0) % MCV (81-99) fL MCH (28.0-34.0) pg MCHC (30.0-36.0) g/dL RDW (12.1-15.1) % Plt Count (130-400) 10^3/c mm MPV (7.4-10.4) fL Neut % (Auto) % Lymph % (Auto) % [place] % (Auto) % Eos % (Auto) % Baso % (Auto) % Neut # (Auto) (1.8-7.7) 10^3/u L Lymph # (Auto) (0.8-4.8) 10^3/u L [place] # (Auto) (0.2-0.9) 10^3/u L Eos # (Auto) (0.0-0.8) 10^3/u L Baso # (Auto) (0.0-0.1) 10^3/u L Nucleated RBC % (a uto) % Nucleated RBCs # /100WBC Sodium (136-145) mmol/L Potassium (3.5-5.1) mmol/L Chloride (98-107) mmol/L Carbon Dioxide (22-29) mmol/L Anion Gap (5-19) BUN (6-20) mg/dL Creatinine (0.5-0.9) mg/dL GFR Calculation (90-130) mL/min Glucose (65-115) mg/dL Calculated Osmolal ity (285-295) mOsm/k g Lactic Acid 3.7 H (0.5-2.2) mmol/L Lactic Acid (Sepsi s) (0.5-2.2) mmol/L Calcium (8.5-10.5) mg/dL Magnesium (1.7-2.3) mg/dL Total Bilirubin (0.15-1.2) mg/dL AST (0-32) U/L ALT (0-33) U/L Alkaline Phosphata se (35-105) IU/L Troponin I 6 Hour (0-10) ng/mL Troponin I Hi Sens Del (0-12) ng/L Troponin T Baselin e (0-10) ng/mL Troponin T 120 Min [place] 9.46 (0-10) ng/mL Delta Troponin T -0.54 L (0-10) ABS# Total Protein (6.6-8.7) g/dL Albumin (3.5-5.2) g/dL Globulin (1.3-4.6) g/dL Triglycerides (0-150) mg/dL Cholesterol (0-200) mg/dL LDL Cholesterol, C alc (50-129) mg/dL HDL Cholesterol (60-100) mg/dL LDL/HDL Ratio (0.00-3.22) RATI O Cholesterol/HDL Ra julisa (0.0-4.40) mg/dL Lipase (13-60) U/L Urine Color Straw (Yellow) Urine Appearance Clear (CLEAR) Urine pH 5.0 (5-7) Ur Specific Gravit y 1.015 (1.005-1.030) Urine Protein Neg (Negative) Urine Glucose (UA) Norm (Normal) Urine Ketones Negative (Negative) Urine Blood Neg (Negative) Urine Nitrate Negative (Negative) Urine Bilirubin Neg (NEGATIVE) Urine Urobilinogen Norm (Negative) mg/dL Ur Leukocyte Stephanie ase Negative (Negative) Urine RBC None (0-2) /hpf Urine WBC None (0-5) /hpf Ur Squamous Epith Cells 15-25 H (0-5) Urine Bacteria 1+ H (NONE) Urine Mucus Trace Ethyl Alcohol (0-10) mg/dL 07/05/19 07/05/19 07/05/19 Range/Units 09:43 09:43 12:42 WBC (4.0-10.0) 10^3/ uL RBC (4.1-5.3) 10^6/u L Hgb (11.5-15.3) g/dL Hct (37.0-47.0) % MCV (81-99) fL MCH (28.0-34.0) pg MCHC (30.0-36.0) g/dL RDW (12.1-15.1) % Plt Count (130-400) 10^3/c mm MPV (7.4-10.4) fL Neut % (Auto) % Lymph % (Auto) % [place] % (Auto) % Eos % (Auto) % Baso % (Auto) % Neut # (Auto) (1.8-7.7) 10^3/u L Lymph # (Auto) (0.8-4.8) 10^3/u L [place] # (Auto) (0.2-0.9) 10^3/u L Eos # (Auto) (0.0-0.8) 10^3/u L Baso # (Auto) (0.0-0.1) 10^3/u L Nucleated RBC % (a uto) % Nucleated RBCs # /100WBC Sodium 142 (136-145) mmol/L Potassium 3.9 (3.5-5.1) mmol/L Chloride 113 H (98-107) mmol/L Carbon Dioxide 16 L (22-29) mmol/L Anion Gap 16.9 (5-19) BUN 6 (6-20) mg/dL Creatinine 0.8 (0.5-0.9) mg/dL GFR Calculation 77.6 L (90-130) mL/min Glucose 110 (65-115) mg/dL Calculated Osmolal ity 290 (285-295) mOsm/k g Lactic Acid (0.5-2.2) mmol/L Lactic Acid (Sepsi s) 1.4 (0.5-2.2) mmol/L Calcium 7.7 L (8.5-10.5) mg/dL Magnesium (1.7-2.3) mg/dL Total Bilirubin (0.15-1.2) mg/dL AST (0-32) U/L ALT (0-33) U/L Alkaline Phosphata se (35-105) IU/L Troponin I 6 Hour 10.18 H (0-10) ng/mL Troponin I Hi Sens Del 0.18 (0-12) ng/L Troponin T Baselin e (0-10) ng/mL Troponin T 120 Min [place] (0-10) ng/mL Delta Troponin T (0-10) ABS# Total Protein (6.6-8.7) g/dL Albumin (3.5-5.2) g/dL Globulin (1.3-4.6) g/dL Triglycerides (0-150) mg/dL Cholesterol (0-200) mg/dL LDL Cholesterol, C alc (50-129) mg/dL HDL Cholesterol (60-100) mg/dL LDL/HDL Ratio (0.00-3.22) RATI O Cholesterol/HDL Ra julisa (0.0-4.40) mg/dL Lipase (13-60) U/L Urine Color (Yellow) Urine Appearance (CLEAR) Urine pH (5-7) Ur Specific Gravit y (1.005-1.030) Urine Protein (Negative) Urine Glucose (UA) (Normal) Urine Ketones (Negative) Urine Blood (Negative) Urine Nitrate (Negative) Urine Bilirubin (NEGATIVE) Urine Urobilinogen (Negative) mg/dL Ur Leukocyte Stephanie ase (Negative) Urine RBC (0-2) /hpf Urine WBC (0-5) /hpf Ur Squamous Epith Cells (0-5) Urine Bacteria (NONE) Urine Mucus Ethyl Alcohol (0-10) mg/dL Imaging Data ^: CXR: My impression: No acute cardiopulmonary findings. EKG Data ^: EKG 1: Attestation: I personally reviewed and interpreted this EKG as follows: EKG interpretation date: 07/05/19 EKG interpretation time: 06:39 Interpretation: Normal sinus rhythm at 100 beats a minute, LVH, T wave inversion and mild ST segment depression in 2, [address] and T wave changes V3 through V6. Artifact present. Discharge Plan Discharge Patient Disposition: Home, Self-Care Clinical Impression: Abdominal pain, chronic, epigastric Condition: Stable Prescriptions: New tramadol 50 mg tablet 50 mg PO Q6H PRN (Reason: pain) Qty: 30 RF: 0 promethazine 25 mg tablet 25 mg PO Q6H PRN (Reason: nausea and vomiting) Qty: 20 RF: 0 No Action lorazepam 1 mg tablet 1 mg PO TID PRN (Reason: anxiety) Qty: 90 RF: 4 amlodipine 5 mg Tablet 5 mg PO DAILY Qty: 30 RF: 0 sucralfate 1 gram Tablet 1 g PO TID RF: 0 olanzapine 10 mg Tablet 10 mg PO QPM RF: 0 topiramate [Topamax] 50 mg Tablet 50 mg PO BEDTIME RF: 0 citalopram [Celexa] 20 mg tablet 20 mg PO QAM RF: 0 zolpidem [Ambien] 10 mg tablet 10 mg PO BEDTIME RF: 0 Dexilant 60 mg capsule,biphase delayed releas 60 mg PO DAILY Qty: 30 RF: 0 metoprolol tartrate 25 mg Tablet 25 mg PO BID Qty: 60 RF: 0 pantoprazole 40 mg Tablet,Delayed Release (Dr/Ec) 40 mg PO BID RF: 0 Discharge Orders: Discharge Order (Routine); Ordered 07/05/19 Ordered By: Constantin Coley Referrals: Rosi Shell NP [Primary Care Provider] - Patient Instructions: Cholecystitis (ED), Abdominal Pain (ED) Discharge Date/Time: 07/05/19 13:15 Sign Out Sign Out Data: Patient Sign Out occurred on 07/05/19 at 09:10. Patient's care was discussed, and care was transferred from to Constantin Coley DO. 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 of Care Code ED First Breaker Feeder for Chg Fwd Exam Comprehensive Documented by User: Constantin Coley DO 07/05/19 13:33 HPI - Abdominal Pain General: Chief Complaint: Abdominal Pain Stated Complaint: Throwing up Time Seen by Provider: 07/05/19 06:15 PFSH ED PFSH: Social History Smoking and tobacco status: former smoker Alcohol intake: never Household members: children Housing: House Course Vital Signs: Vital signs: Vital Signs Temperature 98.3 F 07/05/19 06:16 Pulse Rate 76 07/05/19 13:15 Respiratory Rate 15 07/05/19 13:15 Blood Pressure 155/84 07/05/19 13:15 Pulse Oximetry 98 07/05/19 13:15 MDM - Abdominal Pain MDM Narrative: Medical decision making narrative: CT does not show any acute pancreatitis labs are improved after IV fluids anion gap and lactic acid are resolved. Reviewed with Dr. Murphy who recently seen the patient she consulted on the patient. Both of us feel at this point there is very little to be gained by hospitalization she does need to see GI. She has been using any antiemetics will discharge her home with tramadol and promethazine. Patient has several listed allergies I talked her she tells me she has taken promethazine in the past without any difficulty so we will go ahead and use that another option would be to add some Carafate as needed. Lab Data: Labs: Lab Results 07/05/19 07/05/19 07/05/19 Range/Units 06:33 06:33 06:33 WBC 3.6 L (4.0-10.0) 10^3/ uL RBC 3.92 L (4.1-5.3) 10^6/u L Hgb 12.0 (11.5-15.3) g/dL Hct 40.4 (37.0-47.0) % MCV 103.1 H (81-99) fL MCH 30.6 (28.0-34.0) pg MCHC 29.7 L (30.0-36.0) g/dL RDW 15.5 H (12.1-15.1) % Plt Count 162 (130-400) 10^3/c mm MPV 10.8 H (7.4-10.4) fL Neut % (Auto) 76.5 % Lymph % (Auto) 17.0 % [place] % (Auto) 4.1 % Eos % (Auto) 0.8 % Baso % (Auto) 1.1 % Neut # (Auto) 2.8 (1.8-7.7) 10^3/u L Lymph # (Auto) 0.6 L (0.8-4.8) 10^3/u L [place] # (Auto) 0.2 (0.2-0.9) 10^3/u L Eos # (Auto) 0.0 (0.0-0.8) 10^3/u L Baso # (Auto) 0.0 (0.0-0.1) 10^3/u L Nucleated RBC % (a uto) 0 % Nucleated RBCs # 0.0 /100WBC Sodium 142 (136-145) mmol/L Potassium 3.9 (3.5-5.1) mmol/L Chloride 109 H (98-107) mmol/L Carbon Dioxide 14 L (22-29) mmol/L Anion Gap 22.9 H (5-19) BUN 7 (6-20) mg/dL Creatinine 1.1 H (0.5-0.9) mg/dL GFR Calculation 53.7 L (90-130) mL/min Glucose 143 H (65-115) mg/dL Calculated Osmolal ity 292 (285-295) mOsm/k g Lactic Acid (0.5-2.2) mmol/L Lactic Acid (Sepsi s) (0.5-2.2) mmol/L Calcium 9.2 (8.5-10.5) mg/dL Magnesium 1.9 (1.7-2.3) mg/dL Total Bilirubin 0.2 (0.15-1.2) mg/dL AST 18 (0-32) U/L ALT 15 (0-33) U/L Alkaline Phosphata se 184 H (35-105) IU/L Troponin I 6 Hour (0-10) ng/mL Troponin I Hi Sens Del (0-12) ng/L Troponin T Baselin e 10 (0-10) ng/mL Troponin T 120 Min [place] (0-10) ng/mL Delta Troponin T (0-10) ABS# Total Protein 5.9 L (6.6-8.7) g/dL Albumin 3.5 (3.5-5.2) g/dL Globulin 2.4 (1.3-4.6) g/dL Triglycerides 138 (0-150) mg/dL Cholesterol 105 (0-200) mg/dL LDL Cholesterol, C alc 36 L (50-129) mg/dL HDL Cholesterol 41 L (60-100) mg/dL LDL/HDL Ratio 0.88 (0.00-3.22) RATI O Cholesterol/HDL Ra julisa 2.56 (0.0-4.40) mg/dL Lipase 78 H (13-60) U/L Urine Color (Yellow) Urine Appearance (CLEAR) Urine pH (5-7) Ur Specific Gravit y (1.005-1.030) Urine Protein (Negative) Urine Glucose (UA) (Normal) Urine Ketones (Negative) Urine Blood (Negative) Urine Nitrate (Negative) Urine Bilirubin (NEGATIVE) Urine Urobilinogen (Negative) mg/dL Ur Leukocyte Stephanie ase (Negative) Urine RBC (0-2) /hpf Urine WBC (0-5) /hpf Ur Squamous Epith Cells (0-5) Urine Bacteria (NONE) Urine Mucus Ethyl Alcohol < 10 (0-10) mg/dL 07/05/19 07/05/19 07/05/19 Range/Units 06:50 07:44 08:39 WBC (4.0-10.0) 10^3/ uL RBC (4.1-5.3) 10^6/u L Hgb (11.5-15.3) g/dL Hct (37.0-47.0) % MCV (81-99) fL MCH (28.0-34.0) pg MCHC (30.0-36.0) g/dL RDW (12.1-15.1) % Plt Count (130-400) 10^3/c mm MPV (7.4-10.4) fL Neut % (Auto) % Lymph % (Auto) % [place] % (Auto) % Eos % (Auto) % Baso % (Auto) % Neut # (Auto) (1.8-7.7) 10^3/u L Lymph # (Auto) (0.8-4.8) 10^3/u L [place] # (Auto) (0.2-0.9) 10^3/u L Eos # (Auto) (0.0-0.8) 10^3/u L Baso # (Auto) (0.0-0.1) 10^3/u L Nucleated RBC % (a uto) % Nucleated RBCs # /100WBC Sodium (136-145) mmol/L Potassium (3.5-5.1) mmol/L Chloride (98-107) mmol/L Carbon Dioxide (22-29) mmol/L Anion Gap (5-19) BUN (6-20) mg/dL Creatinine (0.5-0.9) mg/dL GFR Calculation (90-130) mL/min Glucose (65-115) mg/dL Calculated Osmolal ity (285-295) mOsm/k g Lactic Acid 3.7 H (0.5-2.2) mmol/L Lactic Acid (Sepsi s) (0.5-2.2) mmol/L Calcium (8.5-10.5) mg/dL Magnesium (1.7-2.3) mg/dL Total Bilirubin (0.15-1.2) mg/dL AST (0-32) U/L ALT (0-33) U/L Alkaline Phosphata se (35-105) IU/L Troponin I 6 Hour (0-10) ng/mL Troponin I Hi Sens Del (0-12) ng/L Troponin T Baselin e (0-10) ng/mL Troponin T 120 Min [place] 9.46 (0-10) ng/mL Delta Troponin T -0.54 L (0-10) ABS# Total Protein (6.6-8.7) g/dL Albumin (3.5-5.2) g/dL Globulin (1.3-4.6) g/dL Triglycerides (0-150) mg/dL Cholesterol (0-200) mg/dL LDL Cholesterol, C alc (50-129) mg/dL HDL Cholesterol (60-100) mg/dL LDL/HDL Ratio (0.00-3.22) RATI O Cholesterol/HDL Ra julisa (0.0-4.40) mg/dL Lipase (13-60) U/L Urine Color Straw (Yellow) Urine Appearance Clear (CLEAR) Urine pH 5.0 (5-7) Ur Specific Gravit y 1.015 (1.005-1.030) Urine Protein Neg (Negative) Urine Glucose (UA) Norm (Normal) Urine Ketones Negative (Negative) Urine Blood Neg (Negative) Urine Nitrate Negative (Negative) Urine Bilirubin Neg (NEGATIVE) Urine Urobilinogen Norm (Negative) mg/dL Ur Leukocyte Stephanie ase Negative (Negative) Urine RBC None (0-2) /hpf Urine WBC None (0-5) /hpf Ur Squamous Epith Cells 15-25 H (0-5) Urine Bacteria 1+ H (NONE) Urine Mucus Trace Ethyl Alcohol (0-10) mg/dL 07/05/19 07/05/19 07/05/19 Range/Units 09:43 09:43 12:42 WBC (4.0-10.0) 10^3/ uL RBC (4.1-5.3) 10^6/u L Hgb (11.5-15.3) g/dL Hct (37.0-47.0) % MCV (81-99) fL MCH (28.0-34.0) pg MCHC (30.0-36.0) g/dL RDW (12.1-15.1) % Plt Count (130-400) 10^3/c mm MPV (7.4-10.4) fL Neut % (Auto) % Lymph % (Auto) % [place] % (Auto) % Eos % (Auto) % Baso % (Auto) % Neut # (Auto) (1.8-7.7) 10^3/u L Lymph # (Auto) (0.8-4.8) 10^3/u L [place] # (Auto) (0.2-0.9) 10^3/u L Eos # (Auto) (0.0-0.8) 10^3/u L Baso # (Auto) (0.0-0.1) 10^3/u L Nucleated RBC % (a uto) % Nucleated RBCs # /100WBC Sodium 142 (136-145) mmol/L Potassium 3.9 (3.5-5.1) mmol/L Chloride 113 H (98-107) mmol/L Carbon Dioxide 16 L (22-29) mmol/L Anion Gap 16.9 (5-19) BUN 6 (6-20) mg/dL Creatinine 0.8 (0.5-0.9) mg/dL GFR Calculation 77.6 L (90-130) mL/min Glucose 110 (65-115) mg/dL Calculated Osmolal ity 290 (285-295) mOsm/k g Lactic Acid (0.5-2.2) mmol/L Lactic Acid (Sepsi s) 1.4 (0.5-2.2) mmol/L Calcium 7.7 L (8.5-10.5) mg/dL Magnesium (1.7-2.3) mg/dL Total Bilirubin (0.15-1.2) mg/dL AST (0-32) U/L ALT (0-33) U/L Alkaline Phosphata se (35-105) IU/L Troponin I 6 Hour 10.18 H (0-10) ng/mL Troponin I Hi Sens Del 0.18 (0-12) ng/L Troponin T Baselin e (0-10) ng/mL Troponin T 120 Min [place] (0-10) ng/mL [place] Troponin T (0-10) ABS# Total Protein (6.6-8.7) g/dL Albumin (3.5-5.2) g/dL Globulin (1.3-4.6) g/dL Triglycerides (0-150) mg/dL Cholesterol (0-200) mg/dL LDL Cholesterol, C alc (50-129) mg/dL HDL Cholesterol (60-100) mg/dL LDL/HDL Ratio (0.00-3.22) RATI O Cholesterol/HDL Ra julisa (0.0-4.40) mg/dL Lipase (13-60) U/L Urine Color (Yellow) Urine Appearance (CLEAR) Urine pH (5-7) Ur Specific Gravit y (1.005-1.030) Urine Protein (Negative) Urine Glucose (UA) (Normal) Urine Ketones (Negative) Urine Blood (Negative) Urine Nitrate (Negative) Urine Bilirubin (NEGATIVE) Urine Urobilinogen (Negative) mg/dL Ur Leukocyte Stephanie ase (Negative) Urine RBC (0-2) /hpf Urine WBC (0-5) /hpf Ur Squamous Epith Cells (0-5) Urine Bacteria (NONE) Urine Mucus Ethyl Alcohol (0-10) mg/dL Discharge Plan Discharge Patient Disposition: Home, Self-Care Clinical Impression: Abdominal pain, chronic, epigastric Condition: Stable Prescriptions: New tramadol 50 mg tablet 50 mg PO Q6H PRN (Reason: pain) Qty: 30 RF: 0 promethazine 25 mg tablet 25 mg PO Q6H PRN (Reason: nausea and vomiting) Qty: 20 RF: 0 No Action lorazepam 1 mg tablet 1 mg PO TID PRN (Reason: anxiety) Qty: 90 RF: 4 amlodipine 5 mg Tablet 5 mg PO DAILY Qty: 30 RF: 0 sucralfate 1 gram Tablet 1 g PO TID RF: 0 olanzapine 10 mg Tablet 10 mg PO QPM RF: 0 topiramate [Topamax] 50 mg Tablet 50 mg PO BEDTIME RF: 0 citalopram [Celexa] 20 mg tablet 20 mg PO QAM RF: 0 zolpidem [Ambien] 10 mg tablet 10 mg PO BEDTIME RF: 0 Dexilant 60 mg capsule,biphase delayed releas 60 mg PO DAILY Qty: 30 RF: 0 metoprolol tartrate 25 mg Tablet 25 mg PO BID Qty: 60 RF: 0 pantoprazole 40 mg Tablet,Delayed Release (Dr/Ec) 40 mg PO BID RF: 0 Discharge Orders: Discharge Order (Routine); Ordered 07/05/19 Ordered By: Constantin Coley Referrals: Rosi Shell STEWARDING SUPERVISOR [Primary Care Provider] - Patient Instructions: Cholecystitis (ED), Abdominal Pain (ED) Discharge Date/Time: 07/05/19 13:15 Sign Out Sign Out Data: Patient Sign Out occurred on 07/05/19 at 09:10. Patient's care was discussed, and care was transferred from to Constantin Coley DO. 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 of Care Code ED First Breaker Feeder for Kimberly Fwd Exam Comprehensive
--- NOTE | 2019-07-05 06:23 | XR_ITS ---
WS: [id number] PORTABLE CHEST HISTORY: cough COMPARISON: 06/24/2019 Focal linear subsegmental atelectasis in the RIGHT lower lobe. Otherwise lungs are clear. Normal vasc ulature. No pleural effusion or pneumothorax. Cardiac size: Normal. Mediastinum/Aorta: Normal mediastinum. No osseous abnormality seen. Surgical clips at the GE junction. XR/XR chest 1V portable [id number] IMPRESSION: New subsegmental atelectasis RIGHT lower lobe.
--- NOTE | 2019-07-05 06:36 | CTR_ITS ---
PROCEDURE INFORMATION: Exam: CT Abdomen And Pelvis With Contrast Exam date and time: 07/05/2019 6:53 AM Age: 43 years old Clinical indication: Abdominal pain; Generalized; Prior surgery; Surgery date: 6+ months; Surgery type: Cholecystectomy, appendectomy, gastric ulcer repair x 2. ; Additional info: Abdominal pain, possible gastric bypass, gastric resection TECHNIQUE: Imaging protocol: Computed tomography of the abdomen and pelvis with intravenous contrast. Total DLP: 1010.53 mGy-cm Radiation optimization: All CT scans at this facility use at least one of these dose optimization techniques: automated exposure control; mA and/or kV adjustment per patient size (includes targeted exams where dose is matched to clinical indication); or iterative reconstruction. Contrast material: OMNI 300; Contrast volume: 95 ml; Contrast route: 20G; COMPARISON: CT abdomen pelvis w con* [id number] 06/21/2019 3:48 AM FINDINGS: Liver: No mass. Gallbladder and bile ducts: Status post cholecystectomy. Pancreas: No ductal dilation. Spleen: No splenomegaly. Adrenals: No mass. Kidneys and ureters: No hydronephrosis. Stomach and bowel: Postsurgical changes of the stomach. No dilated bowel loops. No high-grade obstruction. Appendix: The appendix is not identified. No focal inflammation in the right lower quadrant. Intraperitoneal space: No free air. No significant fluid collection. Vasculature: No abdominal aortic aneurysm. Lymph nodes: No enlarged lymph nodes. Bladder: Unremarkable as visualized. Reproductive: Status post hysterectomy. Bones/joints: Degenerative changes at L5-S1. Soft tissues: Unremarkable. CT/CT abdomen pelvis w con* [id number] IMPRESSION: No acute findings. Radiation Dose CTDIVOL = (mGy): DLP = 1010.53 (mGy-cm)
[2019-07-05 06:39] LABS: Basophils % 1.1 %; Eosinophils % 0.8 %; Hematocrit 40.4 % (37.0-47.0); Lymphocytes # 0.6 10^3/uL (0.8-4.8); Mean Corpuscular HGB Conc 29.7 g/dL (30.0-36.0); Mean Corpuscular Hemoglobin 30.6 pg (28.0-34.0); Mean Corpuscular Volume 103.1 fL (81-99); Mean Platelet Volume 10.8 fL (7.4-10.4); Monocytes # 0.2 10^3/uL (0.2-0.9); Monocytes % 4.1 %; Neutrophils # 2.8 10^3/uL (1.8-7.7); Neutrophils % 76.5 %; Nucleated Red Blood Cells % 0 %; Platelet Count 162 10^3/cmm (130-400); Positive C 1; Red Blood Count 3.92 10^6/uL (4.1-5.3); Red Cell Distribution Width 15.5 % (12.1-15.1); White Blood Count 3.6 10^3/uL (4.0-10.0)
[2019-07-05 06:54] LABS: Alanine Aminotransferase 15 U/L (0-33); Albumin Level 3.5 g/dL (3.5-5.2); Alkaline Phosphatase 184 IU/L (35-105); Anion Gap 22.9 (5-19); Aspartate Amino Transferase 18 U/L (0-32); Blood Urea Nitrogen 7 mg/dL (6-20); Calcium 9.2 mg/dL (8.5-10.5); Carbon Dioxide 14 mmol/L (22-29); Chloride 109 mmol/L (98-107); Chol HDL Ratio 2.56 mg/dL (0.0-4.40); Cholesterol 105 mg/dL (0-200); Globulin 2.4 g/dL (1.3-4.6); Glomerular Filtration Rate 53.7 mL/min (90-130); Glucose 143 mg/dL (65-115); HDL Cholesterol 41 mg/dL (60-100); LDL Cholesterol Calculated 36 mg/dL (50-129); LDL HDL Ratio 0.88 RATIO (0.00-3.22); Lipase 78 U/L (13-60); Magnesium 1.9 mg/dL (1.7-2.3); Osmolality Calculated 292 mOsm/kg (285-295); Potassium 3.9 mmol/L (3.5-5.1); Sodium 142 mmol/L (136-145); Total Bilirubin 0.2 mg/dL (0.15-1.2); Total Protein 5.9 g/dL (6.6-8.7); Triglycerides 138 mg/dL (0-150)
[2019-07-05 06:56] LABS: Troponin(5th) Baseline 10 ng/mL (0-10)
[2019-07-05] MEDS: sodium chloride 0.9% 1,000 ML 999 ML IV ×2 (06:59→07:00)
[2019-07-05] MEDS: LORazepam 2 mg/mL INJ 1 mL 1 MG IVP (07:00)
[2019-07-05] MEDS: HYDROmorphone 1 mg/mL INJ 1 mL 0.5 MG IVP (07:01)
[2019-07-05 07:02] LABS: Alcohol Level < 10 mg/dL (0-10)
--- NOTE | 2019-07-05 07:05 | PC.NURSE ---
Patient transported to CT via Stretcher by technology sales specialist
[2019-07-05 07:10] LABS: Slide Review Slide Review Perform
[2019-07-05] MEDS: iohexol 300 mg/mL 100 mL Btl IV (07:11)
[2019-07-05 07:12] LABS: Lactic Sepsis W/Reflex 3.7 mmol/L (0.5-2.2)
--- NOTE | 2019-07-05 07:20 | PC.NURSE ---
pt return from CT by stretcher with tech
[2019-07-05] MEDS: sodium chloride 0.9% 100 ML 50 ML (07:21)
[2019-07-05] MEDS: famotidine 20 mg/2 mL INJ 40 MG IVP (07:21)
[2019-07-05] MEDS: HYDROmorphone 1 mg/mL INJ 1 mL IVP (07:46)
[2019-07-05 07:49] VITALS: BP 171/125; PULSE 91; O2SAT 99
--- NOTE | 2019-07-05 08:23 | ECG_ITS ---
Measurements Intervals [place] Rate: 74 P: 41 DC: 148 QRS: -14 QRSD: 85 T: -5 QT: 396 QTc: 441 SINUS RHYTHM WITH SINUS ARRHYTHMIA MINIMAL VOLTAGE CRITERIA FOR LVH, CONSIDER NORMAL VARIANT NONSPECIFIC T-WAVE ABNORMALITY Compared to ECG 06/08/2019 04:28:35 No significant changes Electronically Signed On 07-05-2019 13:42:49 CDT by Angie Crook M.D. [id number]
[2019-07-05 08:39] LABS: Reflex Lactate Order REFLEX LACTIC ORDERD
[2019-07-05 09:02] VITALS: BP 131/66; PULSE 72; O2SAT 98
[2019-07-05 09:02] LABS: Bilirubin Urine Neg (NEGATIVE); Blood Urine Neg (Negative); Glucose Urine UA Norm (Normal); Ketones Urine Negative (Negative); Nitrate Urine Negative (Negative); Protein Urine Neg (Negative); Specific Gravity, Urine 1.015 (1.005-1.030); Urine Appearance Clear (CLEAR); Urine Color Straw (Yellow)
[2019-07-05 09:03] LABS: Leukocyte Esterase Urine Negative (Negative); Urobilinogen Urine Norm (Negative)
[2019-07-05 09:09] LABS: Bacteria Urine 1+; Mucus Urine TRACE; Squamous Epithelial Cell Urine 15-25 (0-5)
[2019-07-05 09:10] LABS: Add Urine Culture? No
[2019-07-05 09:14] LABS: Troponin 5 2HR 9.46 ng/mL (0-10)
[2019-07-05 09:22] LABS: Troponin 5 2HR Delta -0.54 ABS# (0-10)
[2019-07-05 10:02] LABS: Lactic Acid level (Lactate) 1.4 mmol/L (0.5-2.2)
[2019-07-05 10:03] LABS: Anion Gap 16.9 (5-19); Blood Urea Nitrogen 6 mg/dL (6-20); Calcium 7.7 mg/dL (8.5-10.5); Carbon Dioxide 16 mmol/L (22-29); Chloride 113 mmol/L (98-107); Glomerular Filtration Rate 77.6 mL/min (90-130); Glucose 110 mg/dL (65-115); Osmolality Calculated 290 mOsm/kg (285-295); Potassium 3.9 mmol/L (3.5-5.1); Sodium 142 mmol/L (136-145)
[2019-07-05 10:46] VITALS: BP 163/93; PULSE 86
--- NOTE | 2019-07-05 11:52 | PC.NURSE ---
nurse in room to provide PO fluids to pt per PO Fluid Challenge order. Pt refuses to drink anything. ED provider notified.
--- NOTE | 2019-07-05 12:23 | ECG_ITS ---
Measurements Intervals [place] Rate: 100 P: 22 MD: 108 QRS: -13 QRSD: 79 T: 255 QT: 324 QTc: 418 SINUS TACHYCARDIA WITH SHORT MD INTERVAL POSSIBLE LEFT ATRIAL ENLARGEMENT LEFT VENTRICULAR HYPERTROPHY AND ST-T CHANGE POSSIBLE SEPTAL MYOCARDIAL INFARCTION , PROBABLY OLD Compared to ECG 06/08/2019 04:28:35 Short MD interval now present ST (T wave) deviation now present Myocardial infarct finding now present Sinus rhythm no longer present T-wave abnormality no longer present Electronically Signed On 07-05-2019 17:46:01 CDT by Angie Crook M.D. [id number]
--- NOTE | 2019-07-05 12:36 | ECG_ITS ---
Measurements Intervals [place] Rate: 73 P: 20 WI: 138 QRS: -14 QRSD: 94 T: -9 QT: 388 QTc: 428 SINUS RHYTHM MODERATE VOLTAGE CRITERIA FOR LVH, CONSIDER NORMAL VARIANT [MEETS CRITERIA IN ONE ONE OF: R(aVL), S(V1), R(V5), R(V5/V6)+S(V1)] NONSPECIFIC T-WAVE ABNORMALITY No previous ECG available for comparison Electronically Signed On 07-05-2019 13:42:26 CDT by Angie Crook M.D. [id number] f
[2019-07-05 12:45] VITALS: BP 182/83; PULSE 68; RESP 16
[2019-07-05] MEDS: LORazepam 2 mg/mL INJ 1 mL 0.5 MG IVP (12:52)
[2019-07-05 13:08] LABS: Troponin 5 6HR 10.18 ng/mL (0-10); Troponin 5 6HR Delta 0.18 ng/L (0-12)
[2019-07-05 13:15] VITALS: BP 155/84; PULSE 76; RESP 15; O2SAT 98
--- NOTE | 2019-07-05 18:09 | P.CONIM_ITS ---
Providers/Reason For Consult Consulting Physican/Specialty*: ER Reason for Consult*: Medical Opinion Primary Care Provider: Rosi Shell NP History of Present Illness History of Present Illness Therese Schaefer is a 43 year old female that was recently hospitalized and discharged earlier this week. She had prolonged hospital stay due to pa ncreatitis. There was concern for agranulocytosis secondary to Protonix, this was discontinued and patient was started on Dexilant. Patient reports that she was at home and had been having some continued intermittent nausea and vomiting. Therefore came into the ER today for further evaluation and treatment. She denied any fevers, no sick contacts, denies any fatty foods contributing to symptoms. Patient was seen and evaluated in the emergency department noted to have normal CT scan, improved from previous admission. Improved labs. Review of Systems Const: Denies: fever or chills Eyes: Denies: change in vision ENMT: Denies: nasal congestion Card: Denies: chest pain, palpitations or edema Resp: Denies: shortness of breath, productive cough or coughing up blood GI: Reports: nausea; Denies: abdominal pain, vomiting, diarrhea, constipation, blood in stool or black tarry stool : Denies: painful urination or blood in urine Musc: Denies: extremity pain or muscle cramps Skin/Breast: Denies: rash or new lesion Neuro: Denies: headache or dizziness Psych: Denies: anxiety or depression Endo: Denies: excessive urination or hot flashes Gomez/Lymph: Denies: easy bruising or easy bleeding Meds/Allergies Home Medications and Allergies Home Medications Medication Instructions Recorded Confirmed Type lorazepam 1 mg tablet 1 mg PO TID PRN #90 tab 04/16/19 07/05/19 Rx metoprolol tartrate 25 mg PO BID #60 tab 05/04/19 07/05/19 Rx amlodipine 5 mg PO DAILY #30 tab 06/13/19 07/05/19 Rx citalopram [Celexa] 20 mg PO QAM 06/21/19 07/05/19 History olanzapine 10 mg PO QPM 06/21/19 07/05/19 History sucralfate 1 g PO TID 06/21/19 07/05/19 History topiramate [Topamax] 50 mg PO BEDTIME 06/21/19 07/05/19 History zolpidem [Ambien] 10 mg PO BEDTIME 06/21/19 07/05/19 History dexlansoprazole [Dexilant] 60 mg PO DAILY #30 cap 07/02/19 07/05/19 Rx pantoprazole 40 mg PO BID 07/05/19 07/05/19 History promethazine 25 mg PO Q6H PRN #20 tab 07/05/19 Rx tramadol 50 mg PO Q6H PRN #30 tab 07/05/19 Rx Allergies Allergy/AdvReac Type Severity Reaction Status Date / Time baclofen Allergy Unknown Unknown Verified 04/16/19 08:04 codeine Allergy Unknown rash Verified 04/16/19 08:02 ondansetron [From Zofran] Allergy Unknown ALGY-Anaphy Verified 04/16/19 08:04 laxis prochlorperazine Allergy Unknown Unknown Verified 04/16/19 08:04 [From Compazine] metoclopramide [From Reglan] Allergy ALGY-Hives Verified 04/24/19 13:01 PFSH Acute PFSH: Social History Smoking and tobacco status: former smoker Alcohol intake: never Household members: children Housing: House Vitals/I&O/Wt Last Vital Signs Temp 98.3 F 07/05/19 06:16 Pulse 76 07/05/19 13:15 Resp 15 07/05/19 13:15 BP 155/84 07/05/19 13:15 Pulse Ox 98 07/05/19 13:15 07/05/19 07/05/19 07/05/19 06:59 14:59 22:59 Intake Total 16.65 / 16.65 Balance 16.65 / 16.65 Weight last 48 hrs Weight 83.915 kg Physical Exam Const: COMMON NORMALS: oriented x3 and alert GENERAL APPEARANCE: cooperati ve ORIENTATION/CONSCIOUSNESS: Yes awake, Yes oriented to person, Yes oriented to place and Yes oriented to time HENMT: COMMON NORMALS: normocephalic and head/scalp atraumatic HEAD & SCALP: normocephalic and atraumatic Eye: COMMON NORMALS: PERRL PUPIL: Yes PERRL Neck/C-Spine: COMMON NORMALS: supple GENERAL: Yes normal visual inspection Resp: COMMON NORMALS: normal respiratory effort and clear to auscultation bilaterally EFFORT & INSPECTION: Yes able to speak in complete sentences AUSCULTATION: clear to auscultation bilaterally, no rhonchi and no wheezes Cardio: COMMON NORMALS: regular rate, regular rhythm and no murmurs RATE: regular rate RHYTHM: regular rhythm GI: COMMON NORMALS: soft to palpation INSPECTION: No abdominal distension AUSCULTATION: Yes normoactive bowel sounds PALPATION: Yes soft OTHER: No tenderness to palpation with palpation with stethoscope, only tenderness to palpation generalized over the abdomen when hand was applying pressure. Same amount of a pressure was applied with stethoscope and with normal palpation. No guarding or rigidity : COMMON NORMALS: Yes no CVA tenderness BLADDER/KIDNEY EXAM: Yes no CVA tenderness Back/Pelvis: COMMON NORMALS: no CVA tenderness Extremity: COMMON NORMALS: no clubbing, cyanosis or edema and no calf tenderness Neuro: COMMON NORMALS: oriented x3, CN's II-XII intact bilaterally, moves all extremities and no focal motor deficits SENSORIUM/ORIENTATION: Yes alert, Yes oriented to person, Yes oriented to place and Yes oriented to time SPEECH: speech normal Psych: COMMON NORMALS: mental status grossly normal and cooperative Skin: COMMON NORMALS: no rashes or lesions noted GENERAL SKIN EXAM: no rashes or lesions noted Data Imaging^: CT Abd/Pel: I personally reviewed and interpreted this imaging study as follows: Radiologist's impression: FINDINGS: Liver: No mass. Gallbladder and bile ducts: Status post cholecystectomy. Pancreas: No ductal dilation. Spleen: No splenomegaly. Adrenals: No mass. Kidneys and ureters: No hydronephrosis. Stomach and bowel: Postsurgical changes of the stomach. No dilated bowel loops. No high-grade obstruction. Appendix: The appendix is not identified. No focal inflammation in the right lower quadrant. Intraperitoneal space: No free air. No significant fluid collection. Vasculature: No abdominal aortic aneurysm. Lymph nodes: No enlarged lymph nodes. Bladder: Unremarkable as visualized. Reproductive: Status post hysterectomy. Bones/joints: Degenerative changes at L5-S1. Soft tissues: Unremarkable. CT/CT abdomen pelvis w con* [id number] IMPRESSION: No acute findings. A&P Assessment and plan (1) Abdominal pain, chronic, epigastric: Chronic epigastric abdominal pain CT imaging as noted above reports improved findings, no acute findings on imaging Improvement in all of patient's labs Patient discharged to home with antiemetics and pain medication Recommended to have outpatient gastroenterology follow-up Status: Acute Additional A&P Information Recent diagnosis of pancreatitis, now improved. Recommended to patient continuing with bland low-fat diet. Gastric ulcer: Continue on PPI, Protonix discontinued due to agranulocytosis which is now improved. Status post recent EGD on 06/13/[address] Díaz Anemia: Improved Agranulocytosis: Improving, believed to be secondary to Protonix Unspecified neutropenia has now resolved Hypertension Chronic diastolic CHF PTSD, anxiety, depression Obesity Concern for pain medication seeking behavior: Patient appeared comfortable upon entering the room and in no acute distress, able to palpate the anterior abdomen while patient was distracted with no tenderness, no guarding or rigidity. Plan to discharge to home with close outpatient follow-up with primary care provider and also follow-up with gastroenterology. Consult Attestations Medical Necessity Statement: . 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 Clinical Safety Specialist for [facility] Fwd Diagnoses Abdominal pain, chronic, epigastric R10.13; G89.29
== END 2019-07-05 13:15 | disposition home or self-care (01) ==
PROVIDERS: Emergency Medicine; Emergency Provider Family Medicine; PCP Nurse Practitioner Family
DX: R10.13 Epigastric pain (principal); G89.29 Other chronic pain; K85.90 Acute pancreatitis without necrosis or infection, unspecified; K27.9 Peptic ulcer, site unspecified, unspecified as acute or chronic, without hemorrhage or perforation; Z87.891 Personal history of nicotine dependence; F41.1 Generalized anxiety disorder; F33.41 Major depressive disorder, recurrent, in partial remission; F43.12 Post-traumatic stress disorder, chronic
CPT/HCPCS: 12345; 36415; 71045; 74177; 80048; 80053; 80061; 80307; 81001; 83605; 83690; 83735; 84484; 85025; 93005; 96360; 96361; 96365; 96366; 96374; 96375; 99284; J1170; J2060; J3490; J7030; Q9967

== ENCOUNTER 2019-07-10 09:56 | Emergency (ER) | payer SELFPAY ==
[2019-07-10 10:01] VITALS: BP 163/106; PULSE 84; RESP 17; TEMP 36.7; O2SAT 97; BMI 31.7
--- NOTE | 2019-07-10 10:17 | W.ED.ABDPA2 ---
HPI - Abdominal Pain General: Chief Complaint: Abdominal Pain Stated Complaint: ABDOMEN PAIN, Time Seen by Provider: 07/10/19 09:59 History of Present Illness: HPI narrative: 43-year-old female presents emergency room with complaint of abdominal pain this is been a recurring complaint. She has multiple visits recently. This actually goes back for several years. She has had EGD and colonoscopy said multiple CTs has never really found anything specific. Last time we seen her we did encourage her to follow-up with her primary care provider to get referral to pain clinic and gastroenterology. She had recently been hospitalized hospitalist and felt there is nothing more they could do and she had chronic abdominal pain that would need to be further worked up as an outpatient. Associated Symptoms: Reports bloating and nausea; Denies chills, coffee ground emesis, constipation, diarrhea, dysuria, fever(s), hematochezia, hematemesis, melena and vomiting Review of Systems Const: Denies: fever, chills, body aches, change in appetite, fatigue or malaise ENMT: Denies: throat pain, ear pain, nasal discharge or nasal congestion Card: Denies: chest pain, edema, shortness of breath on exertion or shortness of breath when lying down Resp: Denies: shortness of breath, productive cough or non-productive cough GI: Reports: abdominal pain, nausea and bloating; Denies: vomiting, vomiting blood, coffee grounds in vomit, diarrhea, constipation, blood in stool or black tarry stool : Denies: flank pain, difficulty urinating, painful urination, urinary frequency or urinary urgency Skin/Breast: Denies: rash or itching PFSH ED PFSH: Social History Smoking and tobacco status: former smoker Alcohol intake: never Household members: children Housing: House Physical Exam Const: COMMON NORMALS: no apparent distress GENERAL APPEARANCE: cooperative and comfortable ORIENTATION/CONSCIOUSNESS: Yes awake, Yes oriented to person, Yes oriented to place and Yes oriented to time HENMT: COMMON NORMALS: normocephalic, head/scalp atraumatic, hearing grossly normal bilaterally, external ears normal, EAC's normal, TM's normal bilaterally, nasal mucous membranes and turbinates normal, moist oral mucous membranes and oropharynx normal HEAD & SCALP: normocephalic and atraumatic NOSE: nasal mucous membranes and turbinates normal EXTERNAL EAR: Yes external ears normal EXTERNAL AUDITORY CANAL: EAC's normal TYMPANIC MEMBRANE: TM's normal bilaterally Eye: COMMON NORMALS: PERRL, EOMs intact bilaterally, conjunctivae normal and no scleral icterus CONJUNCTIVA: Yes conjunctivae normal PUPIL: Yes PERRL Neck/C-Spine: COMMON NORMALS: full ROM, no lymphadenopathy, supple and no JVD Lymph: LYMPHATIC: no lymphadenopathy noted and no lymphedema noted Resp: COMMON NORMALS: normal respiratory effort, no retractions, no use of accessory muscles and clear to auscultation bilaterally AUSCULTATION: clear to auscultation bilaterally Cardio: COMMON NORMALS: no JVD, regular rate, regular rhythm and no murmurs RATE: regular rate RHYTHM: regular rhythm GI: COMMON NORMALS: soft to palpation and no hepatosplenomegaly AUSCULTATION: Yes normoactive bowel sounds PALPATION: Yes soft, Yes tender (Diffuse abdominal tenderness), No guarding and Yes no hepatosplenomegaly Extremity: COMMON NORMALS: normal to inspection, normal capillary refill, no clubbing, cyanosis or edema, no calf tenderness and no pedal edema Neuro: SENSORIUM/ORIENTATION: Yes oriented to person, Yes oriented to place and Yes oriented to time Skin: COMMON NORMALS: no rashes or lesions noted GENERAL SKIN EXAM: no rashes or lesions noted Course Vital Signs: Vital signs: Vital Signs Temperature 98.1 F 07/10/19 10:01 Pulse Rate 84 07/10/19 12:48 Respiratory Rate 16 07/10/19 12:48 Blood Pressure 133/90 07/10/19 10:30 Pulse Oximetry 97 07/10/19 12:48 MDM - Abdominal Pain MDM Narrative: Medical decision making narrative: Discussed results with the patient. There is really not a whole lot we can do here she denies any vomiting here discharge home with continued antiemetics. Clear liquid diet bland and advance as tolerated if she has persistent symptoms I still strongly encourage her to follow-up with her primary care to get set up for GI and/or pain clinic. Lab Data: Labs: Lab Results 07/10/19 07/10/19 07/10/19 Range/Units 10:38 10:38 11:06 WBC 3.2 L (4.0-10.0) 10^3/ uL RBC 3.89 L (4.1-5.3) 10^6/u L Hgb 11.8 (11.5-15.3) g/dL Hct 39.4 (37.0-47.0) % MCV 101.3 H (81-99) fL MCH 30.3 (28.0-34.0) pg MCHC 29.9 L (30.0-36.0) g/dL RDW 16.5 H (12.1-15.1) % Plt Count 241 (130-400) 10^3/c mm MPV 9.2 (7.4-10.4) fL Neut % (Auto) 50.3 % Lymph % (Auto) 34.0 % Mclean % (Auto) 6.5 % Eos % (Auto) 7.7 % Baso % (Auto) 1.2 % Neut # (Auto) 1.6 L (1.8-7.7) 10^3/u L Lymph # (Auto) 1.1 (0.8-4.8) 10^3/u L Mclean # (Auto) 0.2 (0.2-0.9) 10^3/u L Eos # (Auto) 0.3 (0.0-0.8) 10^3/u L Baso # (Auto) 0.0 (0.0-0.1) 10^3/u L Nucleated RBC % (a uto) 0 % Nucleated RBCs # 0.0 /100WBC Sodium 140 (136-145) mmol/L Potassium 3.8 (3.5-5.1) mmol/L Chloride 108 H (98-107) mmol/L Carbon Dioxide 18 L (22-29) mmol/L Anion Gap 17.8 (5-19) BUN 7 (6-20) mg/dL Creatinine 1.0 H (0.5-0.9) mg/dL GFR Calculation 60.0 L (90-130) mL/min Glucose 89 (65-115) mg/dL Calculated Osmolal ity 285 (285-295) mOsm/k g Calcium 9.0 (8.5-10.5) mg/dL Total Bilirubin 0.3 (0.15-1.2) mg/dL AST 21 (0-32) U/L ALT 18 (0-33) U/L Alkaline Phosphata se 171 H (35-105) IU/L Total Protein 5.6 L (6.6-8.7) g/dL Albumin 3.1 L (3.5-5.2) g/dL Globulin 2.5 (1.3-4.6) g/dL Lipase 50 (13-60) U/L Urine Color Yellow (Yellow) Urine Appearance Clear (CLEAR) Urine pH 6 (5-7) Ur Specific Gravit y 1.010 (1.005-1.030) Urine Protein Neg (Negative) Urine Glucose (UA) Norm (Normal) Urine Ketones Negative (Negative) Urine Blood Neg (Negative) Urine Nitrate Negative (Negative) Urine Bilirubin Neg (NEGATIVE) Urine Urobilinogen Norm (Negative) mg/dL Ur Leukocyte Stephanie ase Negative (Negative) Discharge Plan Discharge Patient Disposition: Home, Self-Care Clinical Impression: Abdominal pain, chronic, epigastric Condition: Stable Prescriptions: New Ativan 1 mg tablet 1 mg PO Q8H PRN (Reason: nausea and vomiting) Qty: 14 RF: 0 No Action lorazepam 1 mg tablet 1 mg PO TID PRN (Reason: anxiety) Qty: 90 RF: 4 amlodipine 5 mg Tablet 5 mg PO DAILY Qty: 30 RF: 0 sucralfate 1 gram Tablet 1 g PO TID RF: 0 topiramate [Topamax] 50 mg Tablet 50 mg PO BEDTIME RF: 0 citalopram [Celexa] 20 mg tablet 20 mg PO QAM RF: 0 zolpidem [Ambien] 10 mg tablet 10 mg PO BEDTIME PRN (Reason: Sleep) RF: 0 Dexilant 60 mg capsule,biphase delayed releas 60 mg PO DAILY Qty: 30 RF: 0 Aspir-81 81 mg Tablet,Delayed Release (Dr/Ec) 81 mg PO DAILY RF: 0 Tylenol Extra Strength 500 mg Tablet 1,000 mg PO Q6H PRN (Reason: Pain) RF: 0 tramadol 50 mg tablet 50 mg PO Q6H PRN (Reason: pain) Qty: 30 RF: 0 promethazine 25 mg tablet 25 mg PO Q6H PRN (Reason: nausea and vomiting) Qty: 20 RF: 0 Discharge Orders: Discharge Order (Routine); Ordered 07/10/19 Ordered By: Constantin Coley Referrals: Rosi Shell NP [Primary Care Provider] - Discharge Diet: Full LIquid Discharge Activity: Increase activity as tolerated Patient Instructions: Clear Liquid Diet (ED), Abdominal Pain (ED) Discharge Date/Time: 07/10/19 12:49 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 of Care Code ED Bending Machine Set Up Operator for Kimberly Gilman
[2019-07-10 10:30] VITALS: BP 133/90; PULSE 68; RESP 17; O2SAT 98
[2019-07-10 10:43] LABS: Basophils % 1.2 %; Eosinophils # 0.3 10^3/uL (0.0-0.8); Eosinophils % 7.7 %; Hematocrit 39.4 % (37.0-47.0); Hemoglobin 11.8 g/dL (11.5-15.3); Lymphocytes # 1.1 10^3/uL (0.8-4.8); Mean Corpuscular HGB Conc 29.9 g/dL (30.0-36.0); Mean Corpuscular Hemoglobin 30.3 pg (28.0-34.0); Mean Corpuscular Volume 101.3 fL (81-99); Mean Platelet Volume 9.2 fL (7.4-10.4); Monocytes # 0.2 10^3/uL (0.2-0.9); Monocytes % 6.5 %; Neutrophils # 1.6 10^3/uL (1.8-7.7); Neutrophils % 50.3 %; Nucleated Red Blood Cells % 0 %; Platelet Count 241 10^3/cmm (130-400); Red Blood Count 3.89 10^6/uL (4.1-5.3); Red Cell Distribution Width 16.5 % (12.1-15.1); White Blood Count 3.2 10^3/uL (4.0-10.0)
[2019-07-10] MEDS: sodium chloride 0.9% 1,000 ML 999 ML IV (10:55)
[2019-07-10 10:57] LABS: Alanine Aminotransferase 18 U/L (0-33); Albumin Level 3.1 g/dL (3.5-5.2); Alkaline Phosphatase 171 IU/L (35-105); Anion Gap 17.8 (5-19); Aspartate Amino Transferase 21 U/L (0-32); Blood Urea Nitrogen 7 mg/dL (6-20); Carbon Dioxide 18 mmol/L (22-29); Chloride 108 mmol/L (98-107); Creatinine Clr Calc Pharmacy 74.4537; Globulin 2.5 g/dL (1.3-4.6); Glucose 89 mg/dL (65-115); Lipase 50 U/L (13-60); Osmolality Calculated 285 mOsm/kg (285-295); Potassium 3.8 mmol/L (3.5-5.1); Sodium 140 mmol/L (136-145); Total Bilirubin 0.3 mg/dL (0.15-1.2); Total Protein 5.6 g/dL (6.6-8.7)
[2019-07-10] MEDS: haloperidol inj 5 mg/mL INJ 1 mL IVP (10:57)
--- NOTE | 2019-07-10 11:11 | PC.NURSE ---
IV infiltrated after IVF started. Less than 100mL of fluid in before stopping. Benson called to bedside to assist with IV ultrasound placement.
[2019-07-10 11:21] LABS: Add Urine Microscopic? NO
[2019-07-10 11:33] LABS: Urine Appearance Clear (CLEAR); Urine Color Yellow (Yellow); pH Urine 6 (5-7)
[2019-07-10 11:34] LABS: Bilirubin Urine Neg (NEGATIVE); Blood Urine Neg (Negative); Glucose Urine UA Norm (Normal); Ketones Urine Negative (Negative); Leukocyte Esterase Urine Negative (Negative); Nitrate Urine Negative (Negative); Protein Urine Neg (Negative); Urobilinogen Urine Norm (Negative)
[2019-07-10 12:48] VITALS: PULSE 84; RESP 16; O2SAT 97
== END 2019-07-10 12:49 | disposition home or self-care (01) ==
PROVIDERS: Emergency Provider Family Medicine; PCP Nurse Practitioner Family
DX: R10.13 Epigastric pain (principal); G89.29 Other chronic pain; Z87.891 Personal history of nicotine dependence; K27.9 Peptic ulcer, site unspecified, unspecified as acute or chronic, without hemorrhage or perforation; K85.90 Acute pancreatitis without necrosis or infection, unspecified; F43.12 Post-traumatic stress disorder, chronic; F41.1 Generalized anxiety disorder; F33.41 Major depressive disorder, recurrent, in partial remission; Z79.82 Long term (current) use of aspirin
CPT/HCPCS: 12345; 36415; 80053; 81003; 83690; 85025; 96361; 96365; 96375; 99283; J0131; J1630; J7030

== ENCOUNTER 2019-08-06 06:08 | Day surgery (SDC) | payer SELFPAY ==
[2019-08-05 13:07] VITALS: BMI 31.7
[2019-08-06 06:16] VITALS: BP 145/102; PULSE 113; RESP 20; TEMP 36.1; O2SAT 99
--- NOTE | 2019-08-06 06:32 | P.ANESASSM_ITS ---
Pre-Anesthetic Assessment Pre-Anesthetic Assessment: Height/Weight: Height 1.63 m Weight 83.915 kg Temp Pulse Resp BP Pulse Ox 97 F L 113 H 20 H 145/102 99 08/06/19 06:16 08/06/19 06:16 08/06/19 06:16 08/06/19 06:16 08/06/19 06:16 Preop Diagnosis: Hematochezia Proposed Procedure: Operation Date: 08/06/19 07:05 Proposed Procedures p EGD 06757 K92.0(Not Applicable) - Epifanio Díaz MD Last intake: Intake Last Liquid Date 08/05/19 Last Liquid Time 23:00 Last Solid Date 08/05/19 Last Solid Time 18:30 Social: Social History: No alcohol and No tobacco Exam: Pre-Anes Outpt Exam: alert, oriented x 3, clear to auscultation bilaterally and regular rate & rhythm Airway: Submandibular: WNL Cervical ROM: WNL MP: 2 History/ROS: No significant history except as noted GI: Comments: vomiting blood Neuropsych: Neuropsych: Anxiety Comments: PTSD Anesthetic Plan: Anesthesia: Anesthesia Evaluation and MAC Risk of > 500 ml blood loss (7ml/kg in children): Yes, adequate IV access and fluids planned PFSH Anesthesia PFSH: Social History Smoking and tobacco status: former smoker Alcohol intake: never Adopted: No Caregiver/support person: Yes Lives independently: Yes Household members: family and children Housing: House Marital status: service: No Current occupational status: employed Current occupational exposures/hazards: No Pets and animals: No History of recent travel: No Sexually active: No Current gender identity: Female Teresa/Zoroastrian: Anabaptism Special teresa needs: No Agree to transfusion: No Financial difficulty paying for basics: Decline to Answer Data Anesthesia Cardiac Studies: No Data to Display
[2019-08-06] MEDS: sodium chloride 0.9% 1,000 ML 30 ML IV (07:17)
--- NOTE | 2019-08-06 07:28 | W.PM.OPSUD ---
Surgery/Procedure H&P Update DATE OF PROCEDURE: August 06, 2019 DATE H&P PERFORMED: 07/29/19 H&P UPDATE INFORMATION: I have reviewed H&P completed within last 30 days, I have examined patient prior to procedure and No changes to prior documentation PREOP DIAGNOSIS: Hematochezia PLANNED PROCEDURE: Operation Date: 08/06/19 07:05 Proposed Procedures p EGD 34852 K92.0(Not Applicable) - Epifanio Díaz MD
[2019-08-06 07:49] VITALS: BP 136/98; PULSE 99; RESP 18; TEMP 36.1; O2SAT 97
[2019-08-06 08:06] VITALS: BP 156/104; PULSE 95; RESP 18; O2SAT 98
--- NOTE | 2019-08-06 09:00 | ANE.PACU2 ---
 Inpatient post-anesthesia follow up: Airway intact: Yes Vital signs: Temperature 97 F Pulse Rate 95 Respiratory Rate 18 Blood Pressure 156/104 Pulse Oximetry 98 Oxygen Delivery Me thod Room Air Oxygen Flow Rate 2 Fraction of Inspir ed Oxygen Hydration adequate: Yes Nausea and vomiting: No Mental status: Baseline
== END 2019-08-06 08:14 | disposition home or self-care (01) ==
PROVIDERS: PCP Nurse Practitioner Family; Visit Provider Surgery
PROC: 0DJ08ZZ Inspection of Upper Intestinal Tract, Via Natural or Artificial Opening Endoscopic (ICD-10-PCS; CPT 43235; principal; 2019-08-06 07:00)
DX: K92.1 Melena (principal); Z87.891 Personal history of nicotine dependence; Z79.82 Long term (current) use of aspirin; I10 Essential (primary) hypertension; F33.9 Major depressive disorder, recurrent, unspecified; Z82.49 Family history of ischemic heart disease and other diseases of the circulatory system
CPT/HCPCS: 43235; 12345; J2704; J3010; J7030

== ENCOUNTER 2019-09-05 05:55 | Inpatient (IN) | payer SELFPAY ==
[2019-09-05] VITALS (13 sets, daily range): BP systolic 132–191; BP diastolic 88–119; PULSE 74–102; RESP 16–20; TEMP 35.7–36.9; O2SAT 96–100; BMI 31.7
--- NOTE | 2019-09-05 06:19 | ED_ITS ---
HPI - Abdominal Pain General: Chief Complaint: Abdominal Pain Stated Complaint: ABD PAIN Time Seen by Provider: 09/05/19 06:05 History of Present Illness: HPI narrative: This patient is a 43-year-old female presenting with abdominal pain and vomiting for 1-1/2 days. She has a history of pancreatitis and says this feels the same. The cause of her pancreatitis has never been determined. She does not have a gallbladder, she is not a drinker. Her only prescriptions are metoprolol and Ativan. She said she does have a history of a bleeding ulcer in the past. Her pain is epigastric and goes through to her back. She is also having pain around her kidneys. She said decreased urine output. She denies diarrhea or black stools. She is not been able to keep anything down for a day and a half. Eating makes the pain worse. She denies fever but has been having some chills with vomiting. She denies shortness of breath or cough. It is painful to take a deep breath. MD elicited complaint: abdominal pain Pertinent past history: other (Pancreatitis) Onset (ago): day(s) (-04/04) Pain Consistency: constant Location: Epigastric Severity: severe Quality: sharp and burning Radiation: back Exacerbating factors: eating and other (Deep breath) Relieving factors: nothing Context: history of similar episodes (Was last hospitalized a few months ago wi th pancreatitis) Associated Symptoms: Reports chills, nausea and vomiting; Denies coffee ground emesis, diarrhea, dysuria and fever(s) Review of Systems General: Reports: 10 or more systems reviewed and unremarkable except in HPI and below Const: Reports: chills; Denies: fever(s), fatigue or malaise Eyes: Denies: change in vision ENMT: Denies: odynophagia Card: Denies: chest pain or swelling of feet/ankles Resp: Denies: dyspnea, productive cough or non-productive cough GI: Reports: nausea and vomiting; Denies: coffee ground emesis or diarrhea : Denies: dysuria Musc: Reports: back pain; Denies: neck pain Skin/Breast: Denies: rash Neuro: Denies: headache(s), numbness in extremities or weakness in extremities Gomez/Lymph: Denies: easy bruising or easy bleeding PFS ED PFSH: Medical History Anastomotic ulcer S/P gastric bypass Chronic post-traumatic stress disorder Generalized anxiety disorder Hypertension Major depressive disorder, recurrent severe without psychotic features Vomiting blood Surgical History H/O esophagogastroduodenoscopy (~06/2019) H/O: hysterectomy History of partial gastrectomy Hx of cholecystectomy S/P appendectomy Family History Mother CAD (coronary artery disease) Other Hypertension Denies family history of Anesthesia complication Bleeding disorder Social History Smoking and tobacco status: former smoker Alcohol intake: never Adopted: No Caregiver/support person: Yes Lives independently: Yes Household members: family and children Housing: House Marital status: service: No Current occupational status: employed Current occupational exposures/hazards: No Pets and animals: No History of recent travel: No Sexually active: No Current gender identity: Female Teresa/Quaker: Scientologist Special teresa needs: No Agree to transfusion: No Financial difficulty paying for basics: Decline to Answer Physical Exam Const: COMMON NORMALS: patient oriented x3 and alert GENERAL APPEARANCE: in distress and anxious NUTRITIONAL APPEARANCE: overweight HENMT: HEAD & SCALP: normal to inspection FACE & SINUS: normal facial exam Eye: GENERAL EYE: appearance normal, both eyes and all related structures Neck/C-Spine: COMMON NORMALS: supple, no meningeal signs and no JVD Chest: COMMONS NORMALS: normal inspection of the chest Resp: COMMON NORMALS: normal respiratory effort, No use of accessory muscles and clear to auscultation bilaterally AUSCULTATION: clear to auscultation bilaterally Cardio: COMMON NORMALS: no JVD, regular rate, regular rhythm and No murmurs present (Cardio) RATE: regular rate RHYTHM: regular rhythm GI: COMMON NORMALS: Soft to palpation AUSCULTATION: Yes Hypoactive bowel sounds present PALPATION: Yes Soft to palpation, Yes Tenderness to palpation present (GI) (Diffuse but localized mainly in the epigastrium) and Yes Guarding due to palpation present (GI) Back/Pelvis: COMMON NORMALS: thoracic and lumbar spine normal to inspection Extremity: COMMON NORMALS: normal to inspection Neuro: COMMON NORMALS: patient oriented x3, moves all extremities, no focal motor deficits and no sensory deficits noted SENSORIUM/ORIENTATION: Yes alert MENINGEAL SIGNS: Yes no meningeal signs Psych: COMMON NORMALS: mental status grossly normal, cooperative and normal affect Skin: COMMON NORMALS: no rashes or lesions noted and turgor normal GENERAL SKIN EXAM: no rashes or lesions noted and turgor normal Course ED course: Patient continues to complain of pain and nausea. She feels that she is going to be unable to go home. Hospitalist, Dr. Murphy was consulted and saw the patient in the ED. She did go ahead and admit her. Vital Signs: Vital signs: Vital Signs Temperature 98.3 F 09/05/19 12:00 Pulse Rate 77 09/05/19 13:05 Respiratory Rate 17 09/05/19 12:00 Blood Pressure 159/93 09/05/19 12:00 Pulse Oximetry 97 09/05/19 13:05 MDM - Abdominal Pain Lab Data: Labs: Lab Results 09/05/19 09/05/19 09/05/19 Range/Units 07:15 07:15 07:15 WBC 10.7 H (4.0-10.0) 10^3/ uL RBC 4.35 (4.1-5.3) 10^6/u L Hgb 13.0 (11.5-15.3) g/dL Hct 41.7 (37.0-47.0) % MCV 95.9 (81-99) fL MCH 29.9 (28.0-34.0) pg MCHC 31.2 (30.0-36.0) g/dL RDW 12.9 (12.1-15.1) % Plt Count 382 (130-400) 10^3/c mm MPV 8.9 (7.4-10.4) fL Neut % (Auto) 77.9 % Lymph % (Auto) 14.1 % Beltrami % (Auto) 5.8 % Eos % (Auto) 1.2 % Baso % (Auto) 0.6 % Neut # (Auto) 8.3 H (1.8-7.7) 10^3/u L Lymph # (Auto) 1.5 (0.8-4.8) 10^3/u L Beltrami # (Auto) 0.6 (0.2-0.9) 10^3/u L Eos # (Auto) 0.1 (0.0-0.8) 10^3/u L Baso # (Auto) 0.1 (0.0-0.1) 10^3/u L Nucleated RBC % (a uto) 0 % Nucleated RBCs # 0.0 /100WBC Sodium 139 (136-145) mmol/L Potassium 3.7 (3.5-5.1) mmol/L Chloride 107 (98-107) mmol/L Carbon Dioxide 20 L (22-29) mmol/L Anion Gap 15.7 (5-19) BUN 13 (6-20) mg/dL Creatinine 0.9 (0.5-0.9) mg/dL GFR Calculation 67.7 L (90-130) mL/min Glucose 117 H (65-115) mg/dL Estimat Average Gl ucose 91 Hemoglobin A1c 4.8 (4.0-6.0) % Calculated Osmolal ity 285 (285-295) mOsm/k g Calcium 9.3 (8.5-10.5) mg/dL Total Bilirubin 0.2 (0.15-1.2) mg/dL AST 18 (0-32) U/L ALT 17 (0-33) U/L Alkaline Phosphata se 83 (35-105) IU/L Total Protein 5.7 L (6.6-8.7) g/dL Albumin 4.0 (3.5-5.2) g/dL Globulin 1.7 (1.3-4.6) g/dL Lipase 89 H (13-60) U/L TSH (0.27-4.20) uIU/ mL Urine Color (Yellow) Urine Appearance (CLEAR) Urine pH (5-7) Ur Specific Gravit y (1.005-1.030) Urine Protein (Negative) Urine Glucose (UA) (Normal) Urine Ketones (Negative) Urine Blood (Negative) Urine Nitrate (Negative) Urine Bilirubin (NEGATIVE) Urine Urobilinogen (Negative) mg/dL Ur Leukocyte Stephanie ase (Negative) 09/05/19 09/05/19 Range/Units 07:15 07:26 WBC (4.0-10.0) 10^3/ uL RBC (4.1-5.3) 10^6/u L Hgb (11.5-15.3) g/dL Hct (37.0-47.0) % MCV (81-99) fL MCH (28.0-34.0) pg MCHC (30.0-36.0) g/dL RDW (12.1-15.1) % Plt Count (130-400) 10^3/c mm MPV (7.4-10.4) fL Neut % (Auto) % Lymph % (Auto) % Beltrami % (Auto) % Eos % (Auto) % Baso % (Auto) % Neut # (Auto) (1.8-7.7) 10^3/u L Lymph # (Auto) (0.8-4.8) 10^3/u L Beltrami # (Auto) (0.2-0.9) 10^3/u L Eos # (Auto) (0.0-0.8) 10^3/u L Baso # (Auto) (0.0-0.1) 10^3/u L Nucleated RBC % (a uto) % Nucleated RBCs # /100WBC Sodium (136-145) mmol/L Potassium (3.5-5.1) mmol/L Chloride (98-107) mmol/L Carbon Dioxide (22-29) mmol/L Anion Gap (5-19) BUN (6-20) mg/dL Creatinine (0.5-0.9) mg/dL GFR Calculation (90-130) mL/min Glucose (65-115) mg/dL Estimat Average Gl ucose Hemoglobin A1c (4.0-6.0) % Calculated Osmolal ity (285-295) mOsm/k g Calcium (8.5-10.5) mg/dL Total Bilirubin (0.15-1.2) mg/dL AST (0-32) U/L ALT (0-33) U/L Alkaline Phosphata se (35-105) IU/L Total Protein (6.6-8.7) g/dL Albumin (3.5-5.2) g/dL Globulin (1.3-4.6) g/dL Lipase (13-60) U/L TSH 0.90 (0.27-4.20) uIU/ mL Urine Color Yellow (Yellow) Urine Appearance Clear (CLEAR) Urine pH 5 (5-7) Ur Specific Gravit y 1.015 (1.005-1.030) Urine Protein Neg (Negative) Urine Glucose (UA) Norm (Normal) Urine Ketones Negative (Negative) Urine Blood Neg (Negative) Urine Nitrate Negative (Negative) Urine Bilirubin Neg (NEGATIVE) Urine Urobilinogen Norm (Negative) mg/dL Ur Leukocyte Stephanie ase Negative (Negative) Discharge Plan Discharge Patient Disposition: Placed in Observation Admit Provider: Susanna Murphy Clinical Impression: Abdominal pain Qualifiers: Abdominal location: epigastric Qualified Code(s): R10.13 - Epigastric pain Vomiting Qualifiers: Vomiting type: unspecified Vomiting Intractability: unspecified Nausea presence: unspecified Qualified Code(s): R11.10 - Vomiting, unspecified Discharge Date/Time: 09/05/19 11:48 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 of Care Code ED Market Development Trainer for Chg Fwd Exam Comprehensive
[2019-09-05 07:23] LABS: Basophils # 0.1 10^3/uL (0.0-0.1); Basophils % 0.6 %; Eosinophils # 0.1 10^3/uL (0.0-0.8); Eosinophils % 1.2 %; Hematocrit 41.7 % (37.0-47.0); Lymphocytes # 1.5 10^3/uL (0.8-4.8); Lymphocytes % 14.1 %; Mean Corpuscular HGB Conc 31.2 g/dL (30.0-36.0); Mean Corpuscular Hemoglobin 29.9 pg (28.0-34.0); Mean Corpuscular Volume 95.9 fL (81-99); Mean Platelet Volume 8.9 fL (7.4-10.4); Monocytes # 0.6 10^3/uL (0.2-0.9); Monocytes % 5.8 %; Neutrophils # 8.3 10^3/uL (1.8-7.7); Neutrophils % 77.9 %; Nucleated Red Blood Cells % 0 %; Platelet Count 382 10^3/cmm (130-400); Red Blood Count 4.35 10^6/uL (4.1-5.3); Red Cell Distribution Width 12.9 % (12.1-15.1); White Blood Count 10.7 10^3/uL (4.0-10.0)
[2019-09-05] MEDS: sodium chloride 0.9% 1,000 ML 999 ML IV ×2 (07:28→10:11)
[2019-09-05] MEDS: morphine 4 mg/mL SDV 1 mL IVP (07:28)
[2019-09-05] MEDS: promethazine 25 mg/mL SDV 1 mL IM (07:28)
[2019-09-05 07:41] LABS: Add Urine Microscopic? NO
[2019-09-05 07:42] LABS: Alanine Aminotransferase 17 U/L (0-33); Alkaline Phosphatase 83 IU/L (35-105); Anion Gap 15.7 (5-19); Aspartate Amino Transferase 18 U/L (0-32); Blood Urea Nitrogen 13 mg/dL (6-20); Calcium 9.3 mg/dL (8.5-10.5); Carbon Dioxide 20 mmol/L (22-29); Chloride 107 mmol/L (98-107); Creatinine Clr Calc Pharmacy 82.7264; Globulin 1.7 g/dL (1.3-4.6); Glomerular Filtration Rate 67.7 mL/min (90-130); Glucose 117 mg/dL (65-115); Lipase 89 U/L (13-60); Osmolality Calculated 285 mOsm/kg (285-295); Potassium 3.7 mmol/L (3.5-5.1); Sodium 139 mmol/L (136-145); Total Bilirubin 0.2 mg/dL (0.15-1.2); Total Protein 5.7 g/dL (6.6-8.7)
[2019-09-05 07:45] LABS: Urine Color Yellow (Yellow)
[2019-09-05 07:46] LABS: Bilirubin Urine Neg (NEGATIVE); Blood Urine Neg (Negative); Glucose Urine UA Norm (Normal); Ketones Urine Negative (Negative); Leukocyte Esterase Urine Negative (Negative); Nitrate Urine Negative (Negative); Protein Urine Neg (Negative); Specific Gravity, Urine 1.015 (1.005-1.030); Urine Appearance Clear (CLEAR); Urobilinogen Urine Norm (Negative); pH Urine 5 (5-7)
[2019-09-05] MEDS: ketorolac 30 mg/mL INJ 15 MG IVP (10:09)
[2019-09-05] MEDS: HYDROmorphone 1 mg/mL INJ 1 mL 0.5 MG IVP (10:12)
--- NOTE | 2019-09-05 11:12 | P.HP_ITS ---
Providers/Chief Complaint Admitting Physician: Susanna Murphy DO Primary Care Provider: Rosi Shell NP Chief Complaint: ABD PAIN History of Present Illness Therese Schaefer is a 43 year old female that presented to the emergency department today for continued nausea and vomiting. She reported that this started approximately 2 days ago. She states that her pain is located in the center of her abdomen sometimes will radiate to her left flank. She reports nausea vomiting that started last night after work. She stated that she is been unable to keep down her medications this morning. She was diagnosed and treated for a gastric ulcer earlier this year, has been on Dexilant and Carafate since that time, patient reports that she continues to take her medication. She reports t hat she is also been having some intermittent diarrhea, has a history of cholecystectomy but reports that she has not noticed any melanotic stools, occasional bright red blood per rectum, which is reported to be secondary to hemorrhoids likely. She reports that she has not noticed any increase in d iarrhea with change in diet, reports that she tries to avoid any greasy or fatty foods. Patient denies any fevers or chills, no exposure to COVID-19. She reports that she has not had any respiratory symptoms, no cough or shortness of breath. Patient denies any dysuria or hematuria. She was seen and evaluated in the emergency department due to her concern for dehydration and reported nausea vomiting she was admitted for observation. Patient did not have any vomiting while in the ED. Review of Systems Const: Denies: fever(s) or chills Eyes: Denies: change in vision ENMT: Denies: nasal congestion Card: Denies: chest pain, palpitations or edema Resp: Denies: dyspnea, productive cough or hemoptysis GI: Reports: abdominal pain, nausea, vomiting and diarrhea; Denies: constipation, hematochezia or melena : Denies: dysuria or hematuria Musc: Denies: extremity pain or muscle cramps Skin/Breast: Denies: rash or new lesions Neuro: Denies: headache(s) or dizziness Psych: Denies: anxiety or depression Endo: Denies: polyuria or hot flashes Gomez/Lymph: Denies: easy bruising or easy bleeding Medications/Allergies Home Medications Medication Instructions Recorded Confirmed Last Taken Type sucralfate 1 g PO TID 06/21/19 09/05/1909/03/20 History Dexilant 60 mg PO DAILY #30 cap 07/02/19 09/05/19 09/04/19 Rx acetaminophen [Tylenol Extra 500 - 1,000 mg PO PRN 07/10/19 09/05/19 09/04/19 History Strength] aspirin [Aspir-81] 81 mg PO DAILY 07/10/19 09/05/19 09/04/19 History citalopram 20 mg tablet 20 mg PO QAM #30 tab 07/19/19 09/05/19 09/04/19 Rx promethazine 25 mg tablet 25 mg PO Q6H PRN #20 tab 07/29/19 09/05/19 08/05/19 Rx clonazepam 0.5 mg tablet 0.5 mg PO TID #90 tab 08/16/19 09/05/19 09/04/19 Rx lorazepam 1 mg PO TID PRN 09/05/19 09/05/19 09/04/19 History metoprolol tartrate 25 mg PO BID 09/05/19 09/05/19 09/04/19 History multivitamin [Multiple Vitamins] 1 tab PO DAILY 09/05/19 09/05/19 09/04/19 History trazodone 150 mg PO BEDTIME 09/05/19 09/05/19 09/04/19 History Allergies Allergy/AdvReac Type Severity Reaction Status Date / Time baclofen Allergy Unknown Unknown Verified 08/05/19 12:59 codeine Allergy Unknown rash Verified 08/05/19 12:59 ondansetron [From Zofran] Allergy Unknown ALGY-Anaphy Verified 08/05/19 12:59 laxis prochlorperazine Allergy Unknown Unknown Verified 08/05/19 12:59 [From Compazine] metoclopramide [From Reglan] Allergy ALGY-Hives Verified 08/05/19 12:59 PFSH Acute PFSH: Medical History Anastomotic ulcer S/P gastric bypass Chronic post-traumatic stress disorder Generalized anxiety disorder Hypertension Major depressive disorder, recurrent severe without psychotic features Vomiting blood Surgical History H/O esophagogastroduodenoscopy (~06/2019) H/O: hysterectomy History of partial gastrectomy Hx of cholecystectomy S/P appendectomy Family History Mother CAD (coronary artery disease) Other Hypertension Denies family history of Anesthesia complication Bleeding disorder Social History Smoking and tobacco status: former smoker Alcohol intake: never Adopted: No Caregiver/support person: Yes Lives independently: Yes Household members: family and children Housing: House Marital status: service: No Current occupational status: employed Current occupational exposures/hazards: No Pets and animals: No History of recent travel: No Sexually active: No Current gender identity: Female Teresa/Catholic: Holiness Special teresa needs: No Agree to transfusion: No Financial difficulty paying for basics: Decline to Answer Vitals/I&O/Wt Last Vital Signs Temp 96.2 F L 09/05/19 06:02 Pulse 80 09/05/19 10:14 Resp 18 09/05/19 10:14 BP 181/112 09/05/19 10:14 Pulse Ox 98 09/05/19 10:14 09/04/19 09/05/19 09/05/19 22:59 06:59 14:59 Intake Total 1000 / 1000 Balance 1000 / 1000 Weight last 48 hrs Weight 83.915 kg Physical Exam Const: COMMON NORMALS: patient oriented x3 and alert GENERAL APPEARANCE: cooperative ORIENTATION/CONSCIOUSNESS: Yes awake, Yes oriented to person, Yes oriented to place and Yes oriented to time HENMT: COMMON NORMALS: normocephalic and atraumatic HEAD & SCALP: no rmocephalic and atraumatic Eye: COMMON NORMALS: Equal, round and reactive pupils present PUPIL: Yes Equal, round and reactive pupils present Neck/C-Spine: COMMON NORMALS: supple GENERAL: Yes normal visual inspection Resp: COMMON NORMALS: normal respiratory effort and clear to auscultation bilaterally EFFORT & INSPECTION: Yes able to speak in complete sentences AUSCULTATION: clear to auscultation bilaterally, no rhonchi and no wheezes Cardio: COMMON NORMALS: regular rate, regular rhythm and No murmurs present (Cardio) RATE: regular rate RHYTHM: regular rhythm GI: COMMON NORMALS: Soft to palpation INSPECTION: No abdominal distension AUSCULTATION: Yes normoactive bowel sounds PALPATION: Yes Soft to palpation OTHER: Patient had tenderness to palpation in the epigastric region, however when listening and pushing with stethoscope on her abdomen she did not have any significant or obvious discomfort. : COMMON NORMALS: Yes no CVA tenderness BLADDER/KIDNEY EXAM: Yes no CVA tenderness Back/Pelvis: COMMON NORMALS: no CVA tenderness Extremity: COMMON NORMALS: no clubbing, cyanosis or edema and no calf tenderness Neuro: COMMON NORMALS: patient oriented x3, CN's II-XII intact bilaterally, moves all extremities and no focal motor deficits SENSORIUM/ORIENTATION: Yes alert, Yes oriented to person, Yes oriented to place and Yes oriented to time SPEECH: speech normal Psych: COMMON NORMALS: mental status grossly normal and cooperative Skin: COMMON NORMALS: no rashes or lesions noted GENERAL SKIN EXAM: no rashes or lesions noted Data : 09/05/19 07:15 09/05/19 07:15 A&P Assessment and plan (1) Abdominal pain: Will obtain KUB Recent CT in July. Will repeat CT due to continued abdominal pain. Lipase without significant elevation History of gastric ulcer and pancreatitis. Had recent repeat EGD on [address] Díaz which showed improvement of gastric ulcer. Continue with oral PPI and Carafate. 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 Therefore will continue on home Dexilant. Status: Acute Qualifiers: Abdominal location: epigastric Qualified Code(s): R10.13 - Epigastric pain (2) Vomiting: Recurrent nausea and vomiting NPO at this time for repeat CT and for bowel rest Status: Acute Qualifiers: Nausea presence: unspecified Vomiting Intractability: unspecified Vomiting type: unspecified Qualified Code(s): R11.10 - Vomiting, unspecified (3) Anastomotic ulcer S/P gastric bypass: Recent repeat EGD on 08/05 with improvement on gastric ulcer continue PPI and carafate Status: Acute Additional A&P Information Patient reports diarrhea: Stool studies ordered and pending DVT prophylaxis: SCDs Diet: N.p.o. with bowel rest CODE STATUS: Full code Attestations Medical Necessity Statement*: Observation due to intractable n/v and abdominal pain 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 Freight Rate Clerk for Chg Fwd Exam Comprehensive Diagnoses Abdominal pain R10.13 Abdominal location: epigastric Vomiting R11.10 Nausea presence: unspecified Vomiting Intractability: unspecified Vomiting type: unspecified Anastomotic ulcer S/P gastric bypass K28.9
--- NOTE | 2019-09-05 11:51 | XR_ITS ---
WS: [id number] XR KUB [id number] REASON FOR EXAM: abdominal pain FINDINGS: Considerable gas and fecal stasis throughout the abdomen. No free air under the diaphragms. There is postop changes in the region of the cecum or appendix. Previous cholecystectomy findings are noted. No air-fluid levels are seen. XR/XR KUB [id number] IMPRESSION: Nonspecific abdominal findings.
[2019-09-05] MEDS: pantoprazole DR 40 mg Tablet PO (12:24)
[2019-09-05] MEDS: sodium chlor 0.9% + KCl 20 mEq 20 MEQ/1,000 ML BAG 75 MEQ IV (12:26)
[2019-09-05] MEDS: TRAMadol 50 mg Tablet PO (12:29)
[2019-09-05] MEDS: promethazine 25 mg Tablet PO (12:29)
[2019-09-05 12:48] LABS: Estmated Average Glucose 91; Hemoglobin A1C 4.8 % (4.0-6.0)
--- NOTE | 2019-09-05 13:15 | CTR_ITS ---
PROCEDURE INFORMATION: Exam: CT Abdomen And Pelvis With Contrast Exam date and time: 09/05/2019 1:17 PM Age: 43 years old Clinical indication: Nausea and vomiting and other: Diarrhea; Abdominal pain; Localized; Right upper quadrant (ruq); Prior surgery; Surgery type: Ulcer, appy, gb; Additional info: Abdominal pain, n/v TECHNIQUE: Imaging protocol: Computed tomography of the abdomen and pelvis with intravenous contrast. Radiation optimization: All CT scans at this facility use at least one of these dose optimization techniques: automated exposure control; mA and/or kV adjustment per patient size (includes targeted exams where dose is matched to clinical indication); or iterative reconstruction. Contrast material: OMNI 300; Contrast volume: 95 ml; Contrast route: IV; COMPARISON: CT abdomen pelvis w con* [id number] 07/05/2019 7:10 AM RADIATION DOSE METRICS: Total DLP: 969.23 mGy-cm FINDINGS: Lungs: There is subpleural atelectasis of the dependent portions of the lungs. Liver: Unremarkable.No mass. Gallbladder and bile ducts: There has been a cholecystectomy. There is no common bile duct dilation. Pancreas: There is mild peripancreatic inflammatory stranding and fluid, consistent with mild acute pancreatitis. There is peripancreatic edema. No pseudocyst. Spleen: Normal. No splenomegaly. Adrenals: Normal. No mass. Kidneys and ureters: There is no evidence of hydronephrosis. There is no evidence of renal calcifications. Stomach and bowel: The gastric wall is thickened but the stomach is collapsed in the appearance is compatible with lack of distension. No definite gastric ulcer. The duodenum is mildly distended with fluid in there is some mild wall thickening and haziness of the fat which is probable reactive edge change to adjacent pancreatitis. There is no evidence of intestinal perforation or obstruction. There is no evidence of colitis/diverticulitis. Appendix: There has been an appendectomy. Intraperitoneal space: Unremarkable. No free air. No significant fluid collection. Vasculature: Unremarkable.No abdominal aortic aneurysm. Lymph nodes: Unremarkable.No enlarged lymph nodes. Bladder: Unremarkable as visualized. Reproductive: Unremarkable as visualized. There has been a hysterectomy. Bones/joints: Unremarkable. No acute fracture. Soft tissues: Unremarkable. Other findings: There are postoperative changes adjacent to the gastroesophageal junction and linear density along the superior stomach which is a probable postoperative suture line. CT/CT abdomen pelvis w con* [id number] IMPRESSION: 1. There is mild peripancreatic inflammatory stranding and fluid, consistent with mild acute pancreatitis. 2. Postoperative changes are noted as above. Note is made that the wall of the duodenum is slightly thickened and there is haziness of the adjacent fat compatible with probable reactive changes to adjacent pancreatitis. No findings to suggest a duodenal ulcer. Probable postoperative ulcer repair of the stomach. The gastric wall is thickened compatible with lack of distention but no definite gastric ulcer. Radiation Dose CTDIVOL = (mGy): DLP = 969.23 (mGy-cm)
[2019-09-05] MEDS: CLONazepam 0.5 mg Tablet PO (14:42)
[2019-09-05] MEDS: sucralfate 1 gm Tablet PO (14:42)
[2019-09-05] MEDS: morphine 4 mg/mL SDV 1 mL 2 MG IVP ×2 (17:15→23:45)
[2019-09-05] MEDS: iohexol 300 mg/mL 100 mL Btl IV (18:10)
[2019-09-06] VITALS (10 sets, daily range): BP systolic 128–157; BP diastolic 69–96; PULSE 66–99; RESP 14–18; TEMP 36.5–37.2; O2SAT 93–97
[2019-09-06] MEDS: sodium chlor 0.9% + KCl 20 mEq 20 MEQ/1,000 ML BAG 75 MEQ IV ×2 (00:46→14:15)
[2019-09-06] MEDS: TRAMadol 50 mg Tablet PO ×3 (03:45→15:59)
[2019-09-06] MEDS: promethazine 25 mg Tablet PO ×3 (03:45→15:59)
[2019-09-06 05:40] LABS: Basophils # 0.1 10^3/uL (0.0-0.1); Basophils % 1.5 %; Eosinophils # 0.5 10^3/uL (0.0-0.8); Eosinophils % 7.6 %; Hematocrit 39.3 % (37.0-47.0); Hemoglobin 11.9 g/dL (11.5-15.3); Lymphocytes # 1.7 10^3/uL (0.8-4.8); Mean Corpuscular HGB Conc 30.3 g/dL (30.0-36.0); Mean Platelet Volume 8.8 fL (7.4-10.4); Monocytes # 0.4 10^3/uL (0.2-0.9); Monocytes % 5.9 %; Neutrophils # 3.9 10^3/uL (1.8-7.7); Neutrophils % 58.7 %; Nucleated Red Blood Cells % 0 %; Platelet Count 276 10^3/cmm (130-400); Red Blood Count 3.97 10^6/uL (4.1-5.3); Red Cell Distribution Width 13.2 % (12.1-15.1); White Blood Count 6.6 10^3/uL (4.0-10.0)
[2019-09-06] MEDS: morphine 4 mg/mL SDV 1 mL 2 MG IVP ×2 (05:53→11:25)
[2019-09-06 05:57] LABS: Anion Gap 14.4 (5-19); Blood Urea Nitrogen 7 mg/dL (6-20); Calcium 8.5 mg/dL (8.5-10.5); Carbon Dioxide 22 mmol/L (22-29); Chloride 114 mmol/L (98-107); Glomerular Filtration Rate 77.6 mL/min (90-130); Glucose 89 mg/dL (65-115); Osmolality Calculated 297 mOsm/kg (285-295); Potassium 4.4 mmol/L (3.5-5.1); Sodium 146 mmol/L (136-145)
[2019-09-06] MEDS: CLONazepam 0.5 mg Tablet PO ×3 (09:37→21:45)
[2019-09-06] MEDS: sucralfate 1 gm Tablet PO ×3 (09:37→21:45)
[2019-09-06] MEDS: pantoprazole DR 40 mg Tablet PO (09:37)
--- NOTE | 2019-09-06 10:00 | PC.CHAP ---
Pastoral Care Encounter/Spiritual Assessment Type of Contact [] Declined blackener visit [] Patient/Family/Request visit [] Outpatient visit [] Follow-up visit [] Physician referral [] Code/Alert [x] Routine visit [] Staff referral [] Actively dying [] Patient sleeping [] Family support [] [] Out of room [] Palliative care [] [] Receiving care in room [] Pre-surgical visit [] Trauma [] Long length of stay [] ICU visit [] Other: Relational/Emotional Strength [] Patient feels connected with others/family/visitors/staff [] Distress [] Loneliness/isolation [] Abandonment Spirituality of Patient [] Person of Teresa [] Attends Quaker of their Teresa [] Believes in Prayer [] Reads Bible or Mandaeism materials [] There are Spiritual issues to be addressed Flipping Machine Operator Interventions [x] Prayer [] Active listening [] Non-anxious presence [] Spiritual/emotional support [] Crisis/trauma care [] Spiritual counseling [] Bereavement support [] Provided bereavement packet [] Provided Bible/devotional materials [] Provided toy/stuffed animal, coloring book to patient or family member [] Provided Communion [] Anointing/[place] [] Salvation [x] Completed spiritual assessment [] Other: Impact on Illness or Injury [] Angry [] Fearful [] Anxious [] Often cries [] Exhaustion [] Unable to work [] Unable to attend evangelical [] Unable to walk/stand [] Unable to read [] Unable to drive [] Unable to eat/drink [] Unable to sleep [] Unable to be with family [] Patient intubated [] Other: Summary Patient still experiencing pain. Mixed emotions regarding cause. Time spent with patient 10 min
--- NOTE | 2019-09-06 16:14 | P.PN_ITS ---
Subjective Subjective: Interval history: Continues to complain of nausea and pain in the epigastric region which is not significantly improved Medications: Reviewed: Yes Vitals/I&O/Wt Last Vital Signs Temp 98.9 F 09/06/19 15:34 Pulse 99 09/06/19 15:34 Resp 16 09/06/19 15:34 BP 157/87 09/06/19 15:34 Pulse Ox 96 09/06/19 15:34 09/06/19 09/06/19 09/06/19 06:59 14:59 22:59 Intake Total 925 / 3045 1000 / 1000 Output Total 650 / 850 1050 / 1050 Balance 275 / 2195 -50 / -50 Weight last 48 hrs Weight 83.824 kg Weight 83.915 kg Physical Exam Narrative: EXAM NARRATIVE: GEN: Awake, alert and oriented, no acute distress CVS: S1S2 N RS: CTA B/L Abd: Soft, nt/nd , bs+ 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 wall of the duodenum is slightly thickened and there is haziness of the adjacent fat compatible with probable reactive changes to adjacent pancreatitis Lipase without significant elevation History of gastric ulcer and pancreatitis. Had recent repeat EGD on [address] Díaz which showed improvement of gastric ulcer. Continue with oral PPI and Carafate. 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 Therefore will continue on home Dexilant. Status: Acute Qualifiers: Abdominal location: epigastric Qualified Code(s): R10.13 - Epigastric pain (2) Vomiting: Recurrent nausea and vomiting Start clear liquid diet Add tramadol for pain control Status: Acute Qualifiers: Nausea presence: unspecified Vomiting Intractability: unspecified Vomiting type: unspecified Qualified Code(s): R11.10 - Vomiting, unspecified (3) Anastomotic ulcer S/P gastric bypass: Recent repeat EGD on 08/05 with improvement on gastric ulcer continue PPI and carafate Status: Acute (4) Acute pancreatitis: Status: Acute Qualifiers: Acute pancreatitis complication: no infection or necrosis Pancreatitis type: unspecified pancreatitis type Qualified Code(s): K85.90 - Acute pancreatitis without necrosis or infection, unspecified Additional A&P Information Patient reports diarrhea: Stool studies ordered. may be 2/2 pancreatic insufficiency DVT prophylaxis: SCDs Diet: clear liquid CODE STATUS: Full code Attestations Medical Necessity Statement*: change to inpatient admission for acute pancreatitis management, need for iv hydration and slow advancement of diet 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 Customs Verifier for [facility] Fwd Diagnoses Abdominal pain R10.13 Abdominal location: epigastric Vomiting R11.10 Nausea presence: unspecified Vomiting Intractability: unspecified Vomiting type: unspecified Anastomotic ulcer S/P gastric bypass K28.9 Acute pancreatitis K85.90 Acute pancreatitis complication: no infection or necrosis Pancreatitis type: unspecified pancreatitis type
[2019-09-06] MEDS: HYDROmorphone 1 mg/mL INJ 1 mL 0.5 MG IVP (17:52)
[2019-09-06] MEDS: amlodipine 5 mg Tablet PO (17:53)
[2019-09-06] MEDS: metoprolol tartrate 25 mg Tablet PO (17:53)
[2019-09-06] MEDS: trazodone 150 mg Tablet PO (21:45)
[2019-09-06] MEDS: dextrose 5%-sod chloride 0.45% 1,000 ML 100 ML IV (21:45)
[2019-09-07] VITALS (9 sets, daily range): BP systolic 114–147; BP diastolic 74–84; PULSE 57–90; RESP 16–20; TEMP 36.8–36.9; O2SAT 94–96
[2019-09-07] MEDS: TRAMadol 50 mg Tablet PO ×2 (03:21→10:27)
[2019-09-07] MEDS: promethazine 25 mg Tablet PO ×2 (03:21→10:27)
[2019-09-07] MEDS: acetaminophen 325 mg Tablet 650 MG PO ×2 (03:22→10:26)
--- NOTE | 2019-09-07 06:55 | PC.NURSE ---
Shift Summary Pt has c/o of RUQ pain tonight. Pt has stated her pain is 10/10 but her flacc score has been less. Pt lost IV access and has not been able to regain access after multiple attempts with nursing staff and US. Pt has specifically requested her IV dilaudid and did not want to take her oral pain medicine until some time had gone by. Pt slept well in between staff entering room.
[2019-09-07] MEDS: citalopram 20 mg Tablet PO (07:44)
[2019-09-07] MEDS: HYDROmorphone 1 mg/mL INJ 1 mL 0.5 MG IVP ×4 (07:45→19:44)
[2019-09-07] MEDS: amlodipine 5 mg Tablet PO (09:02)
[2019-09-07] MEDS: pantoprazole DR 40 mg Tablet PO (09:02)
[2019-09-07] MEDS: metoprolol tartrate 25 mg Tablet PO ×2 (09:02→18:45)
[2019-09-07] MEDS: sucralfate 1 gm Tablet PO ×3 (09:02→20:49)
[2019-09-07] MEDS: CLONazepam 0.5 mg Tablet PO ×3 (09:02→20:48)
--- NOTE | 2019-09-07 13:48 | PM.PN ---
Subjective Subjective: Interval history: pain slightly improved compared to yesterday, had lost iv access yesterday. Tolerating sis of liquid diet now. Afberile, hemodynamically stable, BP and HR better controlled after resuming b blockers and amlodipine Medications: Reviewed: Yes Vitals/I&O/Wt Last Vital Signs Temp 98.4 F 09/07/19 12:00 Pulse 62 09/07/19 12:00 Resp 18 09/07/19 12:03 BP 133/84 09/07/19 12:00 Pulse Ox 96 09/07/19 12:03 09/06/19 09/07/19 09/07/19 22:59 06:59 14:59 Intake Total 420 / 1420 800 / 2220 650 / 650 Output Total 400 / 1450 600 / 2050 Balance 20 / 30 200 / 170 650 / 650 Weight last 48 hrs Weight 82.826 kg Weight 83.824 kg Physical Exam Narrative: EXAM NARRATIVE: GEN: Awake, alert and oriented, no acute distress CVS: S1S2 N RS: CTA B/L Abd: Soft, nt/nd , bs+ 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 wall of the duodenum is slightly thickened and there is haziness of the adjacent fat compatible with probable reactive changes to adjacent pancreatitis Lipase without significant elevation History of gastric ulcer and pancreatitis. Advance diet today Had recent repeat EGD on [address] Díaz which showed improvement of gastric ulcer. Continue with oral PPI and Carafate. 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 Therefore will continue on home Dexilant. Status: Acute Qualifiers: Acute pancreatitis complication: no infection or necrosis Pancreatitis type: unspecified pancreatitis type Qualified Code(s): K85.90 - Acute pancreatitis without necrosis or infection, unspecified (2) Abdominal pain: improving but presebnt will switch iv to po dilaudid as she has had issues with iv access Status: Acute Qualifiers: Abdominal location: epigastric Qualified Code(s): R10.13 - Epigastric pain (3) Vomiting: Recurrent nausea and vomiting secondary to pancreatitis Status: Acute Qualifiers: Nausea presence: unspecified Vomiting Intractability: unspecified Vomiting type: unspecified Qualified Code(s): R11.10 - Vomiting, unspecified (4) Anastomotic ulcer S/P gastric bypass: Recent repeat EGD on 08/05 with improvement on gastric ulcer continue PPI and carafate Status: Acute Additional A&P Information DVT prophylaxis: SCDs Diet: clear liquid CODE STATUS: Full code Attestations Medical Necessity Statement*: Acute pancreatitis, slowly improving, advance diet to full liquid 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 Technician Helper Instrument for [facility] Fwd Diagnoses Acute pancreatitis K85.90 Acute pancreatitis complication: no infection or necrosis Pancreatitis type: unspecified pancreatitis type Abdominal pain R10.13 Abdominal location: epigastric Vomiting R11.10 Nausea presence: unspecified Vomiting Intractability: unspecified Vomiting type: unspecified Anastomotic ulcer S/P gastric bypass K28.9
--- NOTE | 2019-09-07 13:50 | PC.NURSE ---
Patient resting in bed. Patient states her pain is at a constant 9-10 on the number pain scale. Patient appears to be resting, no labored breathing, no facial grimace, or crying out or moaning. Patient has no improvement according to her after pain medication. Patient is poorly motivated, refusing to sit up in chair or ambulate. Offered her a bath and she declined. Offered her heated blanket and/or ice to help with her discomfort and she declined. Patient call nurses station when it is the allowed time for her next dose of medication for pain. Patient expresses no motivation to help self or improve except for her request for pain medication, that she states is not helping. Asked Patient if she was having any improvement from the change of medication from morphine to Dilaudid, she states no. However she states Morhine does nothing to help with her pain, that dilaudid is her preference.
--- NOTE | 2019-09-07 14:09 | PC.CHAP ---
Pastoral Care Encounter/Spiritual Assessment Type of Contact [] Declined purchase price analyst visit [] Patient/Family/Request visit [] Outpatient visit [] Follow-up visit [] Physician referral [] Code/Alert [X] Routine visit [] Staff referral [] Actively dying [] Patient sleeping [] Family support [] [] Out of room [] Palliative care [] [] Receiving care in room [] Pre-surgical visit [] Trauma [] Long length of stay [] ICU visit [] Other: Relational/Emotional Strength [] Patient feels connected with others/family/visitors/staff [] Distress [] Loneliness/isolation [] Abandonment Spirituality of Patient [] Person of Teresa [] Attends Yarsani of their Teresa [] Believes in Prayer [] Reads Bible or Caodaism materials [] There are Spiritual issues to be addressed Risk Management Consultant Interventions [X] Prayer [X] Active listening [] Non-anxious presence [] Spiritual/emotional support [] Crisis/trauma care [] Spiritual counseling [] Bereavement support [] Provided bereavement packet [] Provided Bible/devotional materials [] Provided toy/stuffed animal, coloring book to patient or family member [] Provided Communion [] Anointing/[place] [] Salvation [] Completed spiritual assessment [] Other: Impact on Illness or Injury [] Angry [] Fearful [] Anxious [] Often cries [] Exhaustion [] Unable to work [] Unable to attend anabaptist [] Unable to walk/stand [] Unable to read [] Unable to drive [] Unable to eat/drink [] Unable to sleep [] Unable to be with family [] Patient intubated [] Other: Summary Time spent with patient
[2019-09-07] MEDS: trazodone 150 mg Tablet PO (20:48)
[2019-09-08] VITALS (11 sets, daily range): BP systolic 101–125; BP diastolic 69–81; PULSE 54–68; RESP 16–20; TEMP 36.6–36.8; O2SAT 92–96
[2019-09-08] MEDS: TRAMadol 50 mg Tablet PO ×3 (00:01→21:27)
[2019-09-08] MEDS: HYDROmorphone 1 mg/mL INJ 1 mL 0.5 MG IVP ×5 (01:45→23:12)
[2019-09-08] MEDS: dextrose 5%-sod chloride 0.45% 1,000 ML 100 ML IV ×3 (01:47→21:28)
[2019-09-08 06:27] LABS: Basophils % 1.1 %; Eosinophils # 0.5 10^3/uL (0.0-0.8); Eosinophils % 14.4 %; Hematocrit 35.3 % (37.0-47.0); Hemoglobin 10.5 g/dL (11.5-15.3); Lymphocytes # 1.2 10^3/uL (0.8-4.8); Lymphocytes % 33.2 %; Mean Corpuscular HGB Conc 29.7 g/dL (30.0-36.0); Mean Corpuscular Hemoglobin 29.7 pg (28.0-34.0); Mean Corpuscular Volume 99.7 fL (81-99); Mean Platelet Volume 9.9 fL (7.4-10.4); Monocytes # 0.3 10^3/uL (0.2-0.9); Monocytes % 7.5 %; Neutrophils # 1.6 10^3/uL (1.8-7.7); Neutrophils % 43.8 %; Nucleated Red Blood Cells % 0 %; Platelet Count 200 10^3/cmm (130-400); Red Blood Count 3.54 10^6/uL (4.1-5.3); White Blood Count 3.6 10^3/uL (4.0-10.0)
[2019-09-08 06:44] LABS: Alanine Aminotransferase 15 U/L (0-33); Albumin Level 2.6 g/dL (3.5-5.2); Alkaline Phosphatase 79 IU/L (35-105); Anion Gap 12.2 (5-19); Blood Urea Nitrogen 5 mg/dL (6-20); Calcium 8.2 mg/dL (8.5-10.5); Carbon Dioxide 22 mmol/L (22-29); Chloride 110 mmol/L (98-107); Globulin 1.9 g/dL (1.3-4.6); Glomerular Filtration Rate 90.5 mL/min (90-130); Glucose 94 mg/dL (65-115); Osmolality Calculated 285 mOsm/kg (285-295); Potassium 4.2 mmol/L (3.5-5.1); Sodium 140 mmol/L (136-145); Total Bilirubin 0.2 mg/dL (0.15-1.2); Total Protein 4.5 g/dL (6.6-8.7)
[2019-09-08 06:52] LABS: Aspartate Amino Transferase 20 U/L (0-32)
[2019-09-08] MEDS: promethazine 25 mg Tablet PO (08:03)
[2019-09-08] MEDS: sucralfate 1 gm Tablet PO ×3 (08:05→21:27)
[2019-09-08] MEDS: CLONazepam 0.5 mg Tablet PO ×3 (08:05→21:27)
[2019-09-08] MEDS: metoprolol tartrate 25 mg Tablet PO ×2 (08:05→18:18)
[2019-09-08] MEDS: pantoprazole DR 40 mg Tablet PO (08:05)
[2019-09-08] MEDS: citalopram 20 mg Tablet PO (08:05)
[2019-09-08] MEDS: amlodipine 5 mg Tablet PO (08:05)
--- NOTE | 2019-09-08 16:07 | P.PN_ITS ---
Subjective Subjective: Interval history: Patient improved compared to previous days. States her pain and nausea is well controlled. Tolerated a full liquid diet. Plan to advance to regular diet tonight. 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 wall of the duodenum is slightly thickened and there is haziness of the adjacent fat compatible with probable reactive changes to adjacent pancreatitis Lipase without significant elevation History of gastric ulcer and pancreatitis. Advance diet to regular diet today. Ready for discharge once she is able to consistently tolerate. Had recent repeat EGD on [address] Díaz which showed improvement of gastric ulcer. Continue with oral PPI and Carafate. 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 Therefore will continue on home Dexilant. Status: Acute Qualifiers: Acute pancreatitis complication: no infection or necrosis Pancreatitis type: unspecified pancreatitis type Qualified Code(s): K85.90 - Acute pancreatitis without necrosis or infection, unspecified (2) Abdominal pain: improving but presebnt , significantly better since admission. will switch iv to po dilaudid as she has had issues with iv access Status: Acute Qualifiers: Abdominal location: epigastric Qualified Code(s): R10.13 - Epigastric pain (3) Vomiting: Recurrent nausea and vomiting secondary to pancreatitis Status: Acute Qualifiers: Nausea presence: unspecified Vomiting Intractability: unspecified Vomiting type: unspecified Qualified Code(s): R11.10 - Vomiting, unspecified (4) Anastomotic ulcer S/P gastric bypass: Recent repeat EGD on 08/05 with improvement on gastric ulcer continue PPI and carafate Status: Acute Additional A&P Information Ready for discharge once able to tolerate a regular meal. DVT prophylaxis: SCDs Diet: clear liquid CODE STATUS: Full code Attestations Medical Necessity Statement*: Anticipated discharge in the upcoming 24 hours. 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 Mainframe Consultant for [facility] Diagnoses Acute pancreatitis K85.90 Acute pancreatitis complication: no infection or necrosis Pancreatitis type: unspecified pancreatitis type Abdominal pain R10.13 Abdominal location: epigastric Vomiting R11.10 Nausea presence: unspecified Vomiting Intractability: unspecified Vomiting type: unspecified Anastomotic ulcer S/P gastric bypass K28.9
[2019-09-08] MEDS: trazodone 150 mg Tablet PO (21:27)
[2019-09-09] VITALS (10 sets, daily range): BP systolic 101–122; BP diastolic 64–82; PULSE 53–68; RESP 16–20; TEMP 36.3–36.8; O2SAT 92–97
[2019-09-09] MEDS: TRAMadol 50 mg Tablet PO (04:11)
[2019-09-09] MEDS: citalopram 20 mg Tablet PO (05:53)
[2019-09-09] MEDS: HYDROmorphone 1 mg/mL INJ 1 mL 0.5 MG IVP ×4 (05:53→23:11)
[2019-09-09] MEDS: dextrose 5%-sod chloride 0.45% 1,000 ML 100 ML IV ×3 (07:25→23:10)
[2019-09-09] MEDS: amlodipine 5 mg Tablet PO (07:27)
[2019-09-09] MEDS: CLONazepam 0.5 mg Tablet PO ×2 (07:27→14:23)
[2019-09-09] MEDS: sucralfate 1 gm Tablet PO ×3 (07:27→21:09)
[2019-09-09] MEDS: pantoprazole DR 40 mg Tablet PO (07:27)
[2019-09-09] MEDS: metoprolol tartrate 25 mg Tablet PO ×2 (07:27→17:08)
[2019-09-09] MEDS: promethazine 25 mg Tablet PO ×2 (10:17→23:10)
--- NOTE | 2019-09-09 13:05 | P.PN_ITS ---
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 for recurrent pancreatitis Medications: Reviewed: Yes Vitals/I&O/Wt Last Vital Signs Temp 98.0 F 09/09/19 11:31 Pulse 53 L 09/09/19 11:31 Resp 16 09/09/19 11:31 BP 122/64 09/09/19 11:31 Pulse Ox 95 09/09/19 11:31 09/08/19 09/09/19 09/09/19 22:59 06:59 14:59 Intake Total 1190 / 3608.333 600 / 4208.333 1855 / 1855 Output Total 500 / 500 Balance 1190 / 3608.333 100 / 3708.333 185 / 1855 Weight last 48 hrs Weight 90.582 kg Weight 89.159 kg Physical Exam Const: COMMON NORMALS: no acute distress and patient oriented x3 HENMT: COMMON NORMALS: normocephalic HEAD & SCALP: normocephalic Neck/C-Spine: COMMON NORMALS: no JVD Resp: COMMON NORMALS: normal respiratory effort, No retractions, No use of accessory muscles and clear to auscultation bilaterally AUSCULTATION: clear to auscultation bilaterally Cardio: COMMON NORMALS: no JVD, regular rate, regular rhythm, S1 normal heart sound present and S2 normal heart sound present RATE: regular rate RHYTHM: regular rhythm HEART SOUNDS: S1 normal heart sound present and S2 normal heart sound present GI: COMMON NORMALS: Normal to inspection, nondistended, normoactive bowel sounds present, Soft to palpation, No hepatosplenomegaly present, no masses and no bruits PALPATION: Yes Soft to palpation, Yes Tenderness to palpation present (GI) and Yes No hepatosplenomegaly present Extremity: COMMON NORMALS: capillary refill normal, no clubbing, cyanosis or edema, no calf tenderness and no pedal edema Neuro: COMMON NORMALS: patient oriented x3 Psych: COMMON NORMALS: mental status grossly normal Data : 09/08/19 06:15 09/08/19 06:15 A&P Assessment and plan (1) Acute pancreatitis: CT with mild peripancreatic inflammatory stranding and fluid, consistentvwith mild acute pancreatitis. wall of the duodenum is slightly thickened and there is haziness of the adjacent fat compatible with probable reactive changes to adjacent pancreatitis Lipase without significant elevation History of gastric ulcer and pancreatitis. Continue clear liquid. Ready for discharge once she is able to consistently tolerate. Will space out to Dilaudid 0.5 every 6 hours. Had recent repeat EGD on [address] íDaz which showed improvement of gastric ulcer. Continue with oral PPI and Carafate. 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 Therefore will continue on home Dexilant. Status: Acute Qualifiers: Acute pancreatitis complication: no infection or necrosis Pancreatitis type: unspecified pancreatitis type Qualified Code(s): K85.90 - Acute pancreatitis without necrosis or infection, unspecified (2) Abdominal pain: improving but presebnt , significantly better since admission. Status: Acute Qualifiers: Abdominal location: epigastric Qualified Code(s): R10.13 - Epigastric pain (3) Vomiting: Recurrent nausea and vomiting secondary to pancreatitis Status: Acute Qualifiers: Nausea presence: unspecified Vomiting Intractability: unspecified Vomiting type: unspecified Qualified Code(s): R11.10 - Vomiting, unspecified (4) Anastomotic ulcer S/P gastric bypass: Recent repeat EGD on 08/05 with improvement on gastric ulcer continue PPI and carafate Status: Acute Additional A&P Information Ready for discharge once able to tolerate a regular meal. DVT prophylaxis: SCDs Diet: clear liquid CODE STATUS: Full code Attestations Medical Necessity Statement*: Patient requires continued hospitalization due to acute pancreatitis 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 Armature Rewinder for [facility] Fwd Diagnoses Acute pancreatitis K85.90 Acute pancreatitis complication: no infection or necrosis Pancreatitis type: unspecified pancreatitis type Abdominal pain R10.13 Abdominal location: epigastric Vomiting R11.10 Nausea presence: unspecified Vomiting Intractability: unspecified Vomiting type: unspecified Anastomotic ulcer S/P gastric bypass K28.9
[2019-09-09] MEDS: acetaminophen 325 mg Tablet 650 MG PO (14:21)
[2019-09-09] MEDS: trazodone 150 mg Tablet PO (21:09)
[2019-09-10] VITALS: BP 103/68; PULSE 61; RESP 17; TEMP 36.7; O2SAT 94
[2019-09-10 04:00] VITALS: BP 127/83; PULSE 74; RESP 17; TEMP 36.8; O2SAT 94
[2019-09-10 05:36] VITALS: RESP 17; O2SAT 94
[2019-09-10] MEDS: HYDROmorphone 1 mg/mL INJ 1 mL 0.5 MG IVP (05:36)
[2019-09-10] MEDS: citalopram 20 mg Tablet PO (05:36)
[2019-09-10] MEDS: promethazine 25 mg Tablet PO (05:36)
[2019-09-10 05:50] LABS: Basophils % 0.7 %; Eosinophils # 0.9 10^3/uL (0.0-0.8); Eosinophils % 21.2 %; Hematocrit 36.8 % (37.0-47.0); Hemoglobin 11.2 g/dL (11.5-15.3); Lymphocytes # 1.2 10^3/uL (0.8-4.8); Lymphocytes % 26.1 %; Mean Corpuscular HGB Conc 30.4 g/dL (30.0-36.0); Mean Corpuscular Hemoglobin 29.6 pg (28.0-34.0); Mean Corpuscular Volume 97.4 fL (81-99); Mean Platelet Volume 9.7 fL (7.4-10.4); Monocytes # 0.3 10^3/uL (0.2-0.9); Monocytes % 7.4 %; Neutrophils % 44.4 %; Nucleated Red Blood Cells % 0 %; Platelet Count 214 10^3/cmm (130-400); Red Blood Count 3.78 10^6/uL (4.1-5.3); Red Cell Distribution Width 12.9 % (12.1-15.1); White Blood Count 4.4 10^3/uL (4.0-10.0)
[2019-09-10 06:19] LABS: Alanine Aminotransferase 14 U/L (0-33); Albumin Level 2.5 g/dL (3.5-5.2); Alkaline Phosphatase 81 IU/L (35-105); Anion Gap 14.1 (5-19); Aspartate Amino Transferase 14 U/L (0-32); Blood Urea Nitrogen 8 mg/dL (6-20); Calcium 9.4 mg/dL (8.5-10.5); Carbon Dioxide 23 mmol/L (22-29); Chloride 110 mmol/L (98-107); Creatinine Clr Calc Pharmacy 110.3045; Globulin 2.2 g/dL (1.3-4.6); Glomerular Filtration Rate 90.5 mL/min (90-130); Glucose 104 mg/dL (65-115); Magnesium 1.9 mg/dL (1.7-2.3); Osmolality Calculated 292 mOsm/kg (285-295); Phosphorus 4.5 mg/dL (2.5-4.5); Potassium 4.1 mmol/L (3.5-5.1); Sodium 143 mmol/L (136-145); Total Bilirubin 0.2 mg/dL (0.15-1.2); Total Protein 4.7 g/dL (6.6-8.7)
[2019-09-10 08:00] VITALS: BP 124/75; PULSE 63; RESP 19; TEMP 36.6; O2SAT 98
[2019-09-10] MEDS: sucralfate 1 gm Tablet PO (09:50)
[2019-09-10] MEDS: amlodipine 5 mg Tablet PO (09:50)
[2019-09-10] MEDS: pantoprazole DR 40 mg Tablet PO (09:50)
[2019-09-10] MEDS: metoprolol tartrate 25 mg Tablet PO (09:50)
[2019-09-10] MEDS: TRAMadol 50 mg Tablet 25 MG PO (09:55)
--- NOTE | 2019-09-10 10:29 | P.DS_ITS ---
Discharge Providers Date of Admission: 09/06/19 16:21 Date of Discharge: September 10, 2019 Attending Provider at Admission: Susanna Murphy DO Attending Provider at Discharge: Gallito Knight MD Primary Care Provider: Rosi Shell NP Diagnoses at Discharge Discharge Diagnosis (1) Acute pancreatitis: Status: Acute Qualifiers: Acute pancreatitis complication: no infection or necrosis Pancreatitis type: unspecified pancreatitis type Qualified Code(s): K85.90 - Acute pancreatitis without necrosis or infection, unspecified (2) Abdominal pain: Status: Acute Qualifiers: Abdominal location: epigastric Qualified Code(s): R10.13 - Epigastric pain (3) Vomiting: Status: Acute Qualifiers: Nausea presence: unspecified Vomiting Intractability: unspecified Vomiting type: unspecified Qualified Code(s): R11.10 - Vomiting, unspecified (4) Anastomotic ulcer S/P gastric bypass: Status: Acute Reason for Visit Reason for Visit: ABD PAIN Hospital Course Discharge Summary: This is a 43-year-old female with a past medical history of Anastomotic ulcer S/P gastric bypass, history of gastric ulcers, history of pancreatitis, who presents to [facility] due to complaints of nausea, vomiting, abdominal pain Patient was admitted for acute on chronic pancreatitis, was admitted to the general medical floors, received IV hydration, pain control, nausea control, kept n.p.o., patient had a slow clinical improvement; patient was discharged on a GI soft diet, instructions to avoid alcohol, slowly advance diet, continue to push fluids, pain control with [place], nausea control with promethazine. Patient was advised that as she now has chronic pancreatitis, to follow-up with her physician at [facility] for referral to a director of clinical education for further work-up. Physical Exam Const: COMMON NORMALS: no acute distress and patient oriented x3 HENMT: COMMON NORMALS: normocephalic HEAD & SCALP: normocephalic Neck/C-Spine: COMMON NORMALS: no JVD Resp: COMMON NORMALS: normal respiratory effort, No retractions, No use of accessory muscles and clear to auscultation bilaterally AUSCULTATION: clear to auscultation bilaterally Cardio: COMMON NORMALS: no JVD, regular rate, regular rhythm, S1 normal heart sound present and S2 normal heart sound present RATE: regular rate RHYTHM: regular rhythm HEART SOUNDS: S1 normal heart sound present and S2 normal heart sound present GI: COMMON NORMALS: Normal to inspection, nondistended, normoactive bowel sounds present, Soft to palpation, non-tender, No hepatosplenomegaly present, no masses and no bruits PALPATION: Yes Soft to palpation and Yes No hepatosplenomegaly present Extremity: COMMON NORMALS: capillary refill normal, no clubbing, cyanosis or edema, no calf tenderness and no pedal edema Neuro: COMMON NORMALS: patient oriented x3 Psych: COMMON NORMALS: mental status grossly normal Discharge Data Data Completed and Pending: Completed Studies During Hospitalization Category Date Time Status CT abdomen pelvis w con* [id number] Rout ine Cat Scan 09/05/19 13:15 Completed XR KUB [id number] Rout ine Exams 09/05/19 11:51 Completed Pending at discharge Category Date Time Status Clostridioides Di fficile PCR Routin e Lab 09/05/19 11:51 Uncollected Complete Blood Co unt w/Auto AM LABS Lab 09/11/19 04:00 Ordered Complete Blood Co unt w/Auto AM LABS Lab 09/12/19 04:00 Ordered Comprehensive Met abolic Panel AM LA BS Lab 09/11/19 04:00 Ordered Comprehensive Met abolic Panel AM LA BS Lab 09/12/19 04:00 Ordered Enteric Bacterial Panel by PCR Rout ine Lab 09/05/19 11:51 Uncollected Enteric Parasite Panel by PCR Routi ne Lab 09/05/19 11:51 Uncollected Lactoferrin Routi ne Lab 09/05/19 11:51 Uncollected Magnesium AM LABS Lab 09/11/19 04:00 Ordered Magnesium AM LABS Lab 09/12/19 04:00 Ordered Phosphorus AM LAB S Lab 09/11/19 04:00 Ordered Phosphorus AM LAB S Lab 09/12/19 04:00 Ordered Labs from last 24 hours 09/10/19 09/10/19 04:54 04:54 WBC 4.4 RBC 3.78 L Hgb 11.2 L Hct 36.8 L MCV 97.4 MCH 29.6 MCHC 30.4 RDW 12.9 Plt Count 214 MPV 9.7 Neut % (Auto) 44.4 Lymph % (Auto) 26.1 [place] % (Auto) 7.4 Eos % (Auto) 21.2 Baso % (Auto) 0.7 Neut # (Auto) 2.0 Lymph # (Auto) 1.2 [place] # (Auto) 0.3 Eos # (Auto) 0.9 H Baso # (Auto) 0.0 Nucleated RBC % (a uto) 0 Nucleated RBCs # 0.0 Sodium 143 Potassium 4.1 Chloride 110 H Carbon Dioxide 23 Anion Gap 14.1 BUN 8 Creatinine 0.7 GFR Calculation 90.5 Glucose 104 Calculated Osmolal ity 292 Calcium 9.4 Phosphorus 4.5 Magnesium 1.9 Total Bilirubin 0.2 AST 14 ALT 14 Alkaline Phosphata se 81 Total Protein 4.7 L Albumin 2.5 L Globulin 2.2 Vitals: Last Vital Signs Temp 97.8 F 09/10/19 08:00 Pulse 63 09/10/19 08:00 Resp 19 H 09/10/19 08:00 BP 124/75 09/10/19 08:00 Pulse Ox 98 09/10/19 08:00 Discharge Plan Discharge Patient Disposition: Home, Self-Care Condition: Stable Prescriptions: [place] 5-325 mg tablet 1 tab PO Q12H PRN (Reason: pain) 7 Days Qty: 14 RF: 0 amlodipine 5 mg Tablet 5 mg PO DAILY 30 Days Qty: 30 RF: 0 promethazine 12.5 mg tablet 6.25 mg PO BID PRN (Reason: nausea and vomiting) 7 Days Qty: 14 RF: 0 Continued citalopram [Celexa] 20 mg tablet 20 mg PO QAM Qty: 30 RF: 3 promethazine 25 mg tablet 25 mg PO Q6H PRN (Reason: nausea and vomiting) Qty: 20 RF: 0 sucralfate 1 gram Tablet 1 g PO TID RF: 0 Dexilant 60 mg capsule,biphase delayed releas 60 mg PO DAILY Qty: 30 RF: 0 aspirin [Aspir-81] 81 mg Tablet,Delayed Release (Dr/Ec) 81 mg PO DAILY RF: 0 acetaminophen [Tylenol Extra Strength] 500 mg Tablet 500 - 1,000 mg PO PRN RF: 0 Multiple Vitamins Tablet 1 tab PO DAILY RF: 0 metoprolol tartrate 25 mg Tablet 25 mg PO BID RF: 0 trazodone 150 mg tablet 150 mg PO BEDTIME RF: 0 Discontinued clonazepam [Klonopin] 0.5 mg tablet 0.5 mg PO TID Qty: 90 RF: 2 lorazepam 1 mg tablet 1 mg PO TID PRN (Reason: Anxiety) RF: 0 Discharge Orders: Discharge Order (Routine); Ordered 09/10/19 Ordered By: Gallito Knight Referrals: Rosi Shell NP [Primary Care Provider] - Discharge Diet: GI Soft Discharge Activity: Resume usual activity Patient Instructions: Hydrocodone/Acetaminophen (By mouth), Promethazine (By mouth), Amlodipine (By mouth), Pancreatitis (DC), Pancreatitis (GEN), Soft Diet (GEN) Activity Restrictions/Additional Instructions: -Please follow-up with primary care provider in 1 week -Please follow-up with primary care provider about referral to director of clinical education -Please avoid alcohol consumption -Please drink plenty of electrolyte balance fluids -If you have worsening abdominal pain please come back to the emergency room Discharge Attestations Time Spent in Discharge Care*: less than 30 min Quality Metrics Clinical Quality Measures During this hospital stay, did patient experience: None 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 Rn Eligibility for [facility] Fwd Diagnoses Acute pancreatitis K85.90 Acute pancreatitis complication: no infection or necrosis Pancreatitis type: unspecified pancreatitis type Abdominal pain R10.13 Abdominal location: epigastric Vomiting R11.10 Nausea presence: unspecified Vomiting Intractability: unspecified Vomiting type: unspecified Anastomotic ulcer S/P gastric bypass K28.9
[2019-09-10 11:56] VITALS: BP 126/83; PULSE 65; RESP 16; TEMP 37.2; O2SAT 94
[2019-09-10] MEDS: acetaminophen 325 mg Tablet 650 MG PO (12:34)
[2019-09-10 13:18] VITALS: BP 126/83; PULSE 65; RESP 16; TEMP 37.2; O2SAT 94
== END 2019-09-10 12:45 | disposition home or self-care (01) | DRG 439 ==
LOC: ER 06:14 → MEDSURG 11:25
PROVIDERS: Emergency Medicine; Student in an Organized Health Care Education/Training Program; Admitting Provider Family Medicine; PCP Nurse Practitioner Family; Visit Provider Family Medicine
DX: K85.90 Acute pancreatitis without necrosis or infection, unspecified (principal); F33.9 Major depressive disorder, recurrent, unspecified; E86.0 Dehydration; K86.1 Other chronic pancreatitis; Z98.84 Bariatric surgery status; F41.9 Anxiety disorder, unspecified; I10 Essential (primary) hypertension; Z90.49 Acquired absence of other specified parts of digestive tract; Z87.891 Personal history of nicotine dependence; Z87.11 Personal history of peptic ulcer disease
CPT/HCPCS: 12345; 36415; 74018; 74177; 80048; 80053; 81003; 83036; 83690; 83735; 84100; 84443; 85025; 96372; 96375; 99283; G0378; J1170; J1885; J2270; J2550; J7030; J7799; Q0169; Q9967

== ENCOUNTER 2019-09-27 13:11 | Emergency (ER) | payer SELFPAY ==
[2019-09-27 13:55] VITALS: BP 106/68; PULSE 90; RESP 14; TEMP 36.5; O2SAT 96; BMI 31.7
--- NOTE | 2019-09-27 15:31 | W.ED.ABDPA2 ---
HPI - Abdominal Pain General: Chief Complaint: Abdominal Pain Stated Complaint: abd pain, n/v Time Seen by Provider: 09/27/19 14:56 History of Present Illness: HPI narrative: 43-year-old female comes in complaining of abdominal pain nausea she has had this multiple times before she has been trying some Phenergan and tramadol at home those have not really work she also states she had a fever at work and a screen her up to 101 but now in the emergency room she does not present with any fever. She denies any upper respiratory symptoms she has had this multiple times in the past with tried various medications to control with minimal relief usually she ends up in the emergency room requiring fluids and IV antibiotics MD elicited complaint: abdominal pain Pertinent past history: gastritis and other (Persistent nausea and vomiting) Onset (ago): year(s) ( has had this intermittent for years) Pain Consistency: constant Location: Epigastric and LUQ Severity: severe Quality: cramping Radiation: LUQ Exacerbating factors: eating and vomiting Relieving factors: nothing Associated Symptoms: Reports anorexia, bloating, nausea, poor appetite and vomiting; Denies diarrhea, dysuria, fever(s), hematochezia, hematuria, hematemesis and melena Treatments prior to arrival: other (Antiemetics and pain medications) Review of Systems Const: Denies: fever(s) ENMT: Denies: throat pain, ear or mastoid pain, nasal discharge or nasal congestion Card: Denies: chest pain, edema, dyspnea on exertion or orthopnea Resp: Denies: dyspnea, productive cough or non-productive cough GI: Reports: nausea, vomiting and bloating; Denies: hematemesis, diarrhea, hematochezia or melena : Denies: dysuria or hematuria Skin/Breast: Denies: rash or pruritus PFSH ED PFSH: Medical History Anastomotic ulcer S/P gastric bypass Chronic post-traumatic stress disorder Generalized anxiety disorder Hypertension Major depressive disorder, recurrent severe without psychotic features Vomiting blood Surgical History H/O esophagogastroduodenoscopy (~06/2019) H/O: hysterectomy History of partial gastrectomy Hx of cholecystectomy S/P appendectomy Family History Mother CAD (coronary artery disease) Other Hypertension Denies family history of Anesthesia complication Bleeding disorder Social History Smoking and tobacco status: former smoker Alcohol intake: never Adopted: No Caregiver/support person: Yes Lives independently: Yes Household members: family and children Housing: House Marital status: service: No Current occupational status: employed Current occupational exposures/hazards: No Pets and animals: No History of recent travel: No Sexually active: No Current gender identity: Female Teresa/Confucianist: Mandaeism Special teresa needs: No Agree to transfusion: No Financial difficulty paying for basics: Decline to Answer Physical Exam Const: COMMON NORMALS: no acute distress GENERAL APPEARANCE: cooperative and comfortable ORIENTATION/CONSCIOUSNESS: Yes awake, Yes oriented to person, Yes oriented to place and Yes oriented to time HENMT: COMMON NORMALS: normocephalic, atraumatic, hearing grossly normal bilaterally, external ears normal, EAC's normal, TM's normal bilaterally, Normal nasal mucous membranes and turbinates present, moist oral mucous membranes and oropharynx normal HEAD & SCALP: normocephalic and atraumatic NOSE: Normal nasal mucous membranes and turbinates present EXTERNAL EAR: Yes external ears normal EXTERNAL AUDITORY CANAL: EAC's normal TYMPANIC MEMBRANE: TM's normal bilaterally Eye: COMMON NORMALS: Equal, round and reactive pupils present, EOMs intact bilaterally, conjunctivae normal and no scleral icterus CONJUNCTIVA: Yes conjunctivae normal PUPIL: Yes Equal, round and reactive pupils present Neck/C-Spine: COMMON NORMALS: full ROM, no lymphadenopathy, supple and no JVD Lymph: LYMPHATIC: no lymphadenopathy noted and no lymphedema noted Resp: COMMON NORMALS: normal respiratory effort, No retractions, No use of accessory muscles and clear to auscultation bilaterally AUSCULTATION: clear to auscultation bilaterally Cardio: COMMON NORMALS: no JVD, regular rate, regular rhythm and No murmurs present (Cardio) RATE: regular rate RHYTHM: regular rhythm GI: COMMON NORMALS: Soft to palpation and No hepatosplenomegaly present AUSCULTATION: Yes normoactive bowel sounds PALPATION: Yes Soft to palpation, No Tenderness to palpation present (GI), No Guarding due to palpation present (GI) and Yes No hepatosplenomegaly present Extremity: COMMON NORMALS: normal to inspection, capillary refill normal, no clubbing, cyanosis or edema, no calf tenderness and no pedal edema Neuro: SENSORIUM/ORIENTATION: Yes oriented to person, Yes oriented to place and Yes oriented to time Skin: COMMON NORMALS: no rashes or lesions noted GENERAL SKIN EXAM: no rashes or lesions noted Course Vital Signs: Vital signs: Vital Signs Temperature 97.7 F 09/27/19 13:55 Pulse Rate 81 09/27/19 17:59 Respiratory Rate 18 09/27/19 17:59 Blood Pressure 131/87 09/27/19 17:59 Pulse Oximetry 95 09/27/19 17:59 MDM - Abdominal Pain MDM Narrative: Medical decision making narrative: Patient has recurrent episodes of chronic pancreatitis with nausea and vomiting treated for the nausea vomiting is better but successfully with Ativan in the past discharge home have her follow-up with her primary care doctor has any worsening or change symptoms return avoid any alcohol avoid any fatty foods or fried foods. Clear liquid diet for the next 24 hours. Lab Data: Labs: Lab Results 09/27/19 09/27/19 09/27/19 Range/Units 15:18 15:43 15:43 WBC 6.9 (4.0-10.0) 10^3/ uL RBC 4.19 (4.1-5.3) 10^6/u L Hgb 12.4 (11.5-15.3) g/dL Hct 39.9 (37.0-47.0) % MCV 95.2 (81-99) fL MCH 29.6 (28.0-34.0) pg MCHC 31.1 (30.0-36.0) g/dL RDW 13.3 (12.1-15.1) % Plt Count 336 (130-400) 10^3/c mm MPV 9.2 (7.4-10.4) fL Neut % (Auto) 75.1 % Lymph % (Auto) 19.2 % [place] % (Auto) 3.2 % Eos % (Auto) 1.0 % Baso % (Auto) 0.9 % Neut # (Auto) 5.2 (1.8-7.7) 10^3/u L Lymph # (Auto) 1.3 (0.8-4.8) 10^3/u L [place] # (Auto) 0.2 (0.2-0.9) 10^3/u L Eos # (Auto) 0.1 (0.0-0.8) 10^3/u L Baso # (Auto) 0.1 (0.0-0.1) 10^3/u L Nucleated RBC % (a uto) 0 % Nucleated RBCs # 0.0 /100WBC Sodium 135 L (136-145) mmol/L Potassium 3.9 (3.5-5.1) mmol/L Chloride 102 (98-107) mmol/L Carbon Dioxide 20 L (22-29) mmol/L Anion Gap 16.9 (5-19) BUN 9 (6-20) mg/dL Creatinine 0.9 (0.5-0.9) mg/dL GFR Calculation 67.7 L (90-130) mL/min Glucose 119 H (65-115) mg/dL Calculated Osmolal ity 277 L (285-295) mOsm/k g Lactate (0.5-2.2) mmol/L Calcium 8.5 (8.5-10.5) mg/dL Total Bilirubin 0.2 (0.15-1.2) mg/dL AST 16 (0-32) U/L ALT 15 (0-33) U/L Alkaline Phosphata se 141 H (35-105) IU/L Total Protein 5.4 L (6.6-8.7) g/dL Albumin 2.8 L (3.5-5.2) g/dL Globulin 2.6 (1.3-4.6) g/dL Lipase 102 H (13-60) U/L Urine Color Yellow (Yellow) Urine Appearance Clear (CLEAR) Urine pH 5.0 (5-7) Ur Specific Gravit y 1.020 (1.005-1.030) Urine Protein Neg (Negative) Urine Glucose (UA) Norm (Normal) Urine Ketones Negative (Negative) Urine Blood Neg (Negative) Urine Nitrate Negative (Negative) Urine Bilirubin Neg (NEGATIVE) Urine Urobilinogen Norm (Negative) mg/dL Ur Leukocyte Stephanie ase Negative (Negative) 09/27/19 Range/Units 15:43 WBC (4.0-10.0) 10^3/ uL RBC (4.1-5.3) 10^6/u L Hgb (11.5-15.3) g/dL Hct (37.0-47.0) % MCV (81-99) fL MCH (28.0-34.0) pg MCHC (30.0-36.0) g/dL RDW (12.1-15.1) % Plt Count (130-400) 10^3/c mm MPV (7.4-10.4) fL Neut % (Auto) % Lymph % (Auto) % [place] % (Auto) % Eos % (Auto) % Baso % (Auto) % Neut # (Auto) (1.8-7.7) 10^3/u L Lymph # (Auto) (0.8-4.8) 10^3/u L [place] # (Auto) (0.2-0.9) 10^3/u L Eos # (Auto) (0.0-0.8) 10^3/u L Baso # (Auto) (0.0-0.1) 10^3/u L Nucleated RBC % (a uto) % Nucleated RBCs # /100WBC Sodium (136-145) mmol/L Potassium (3.5-5.1) mmol/L Chloride (98-107) mmol/L Carbon Dioxide (22-29) mmol/L Anion Gap (5-19) BUN (6-20) mg/dL Creatinine (0.5-0.9) mg/dL GFR Calculation (90-130) mL/min Glucose (65-115) mg/dL Calculated Osmolal ity (285-295) mOsm/k g Lactate 1.0 (0.5-2.2) mmol/L Calcium (8.5-10.5) mg/dL Total Bilirubin (0.15-1.2) mg/dL AST (0-32) U/L ALT (0-33) U/L Alkaline Phosphata se (35-105) IU/L Total Protein (6.6-8.7) g/dL Albumin (3.5-5.2) g/dL Globulin (1.3-4.6) g/dL Lipase (13-60) U/L Urine Color (Yellow) Urine Appearance (CLEAR) Urine pH (5-7) Ur Specific Gravit y (1.005-1.030) Urine Protein (Negative) Urine Glucose (UA) (Normal) Urine Ketones (Negative) Urine Blood (Negative) Urine Nitrate (Negative) Urine Bilirubin (NEGATIVE) Urine Urobilinogen (Negative) mg/dL Ur Leukocyte Stephanie ase (Negative) Discharge Plan Discharge Patient Disposition: Home, Self-Care Clinical Impression: Chronic pancreatitis, Nausea and vomiting Condition: Stable Prescriptions: New Ativan 2 mg tablet 2 mg PO Q8H PRN (Reason: nausea and vomiting) Qty: 20 RF: 0 No Action citalopram [Celexa] 20 mg tablet 20 mg PO QAM Qty: 90 RF: 2 clonazepam [Klonopin] 0.5 mg tablet 0.5 mg PO TID Qty: 90 RF: 3 trazodone 150 mg tablet 150 mg PO BEDTIME PRN (Reason: sleep) Qty: 90 RF: 2 promethazine 25 mg tablet 25 mg PO Q6H PRN (Reason: nausea and vomiting) Qty: 20 RF: 0 sucralfate 1 gram Tablet 1 g PO TID RF: 0 Dexilant 60 mg capsule,biphase delayed releas 60 mg PO DAILY Qty: 30 RF: 0 aspirin [Aspir-81] 81 mg Tablet,Delayed Release (Dr/Ec) 81 mg PO DAILY RF: 0 acetaminophen [Tylenol Extra Strength] 500 mg Tablet 500 - 1,000 mg PO PRN PRN (Reason: Pain) RF: 0 tramadol 50 mg Tablet 50 mg PO BID PRN (Reason: Pain) RF: 0 lorazepam 1 mg Tablet 1 mg PO TID PRN (Reason: Anxiety) RF: 0 Ambien 10 mg Tablet 10 mg PO BEDTIME RF: 0 multivitamin [Multiple Vitamins] Tablet 1 tab PO DAILY RF: 0 metoprolol tartrate 25 mg Tablet 25 mg PO BID RF: 0 amlodipine 5 mg Tablet 5 mg PO DAILY 30 Days Qty: 30 RF: 0 Referrals: Rosi Shell NP [Primary Care Provider] - Discharge Diet: Advance as tolerated Discharge Activity: Resume usual activity Discharge Date/Time: 09/27/19 18:09 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 of Care Code ED Undertaker Assistant for Kimberly Fwd Exam Comprehensive
[2019-09-27 15:34] LABS: Add Urine Microscopic? NO
[2019-09-27 15:52] LABS: Bilirubin Urine Neg (NEGATIVE); Blood Urine Neg (Negative); Glucose Urine UA Norm (Normal); Ketones Urine Negative (Negative); Leukocyte Esterase Urine Negative (Negative); Nitrate Urine Negative (Negative); Protein Urine Neg (Negative); Urine Appearance Clear (CLEAR); Urine Color Yellow (Yellow); Urobilinogen Urine Norm (Negative)
[2019-09-27 16:03] LABS: Basophils # 0.1 10^3/uL (0.0-0.1); Basophils % 0.9 %; Eosinophils # 0.1 10^3/uL (0.0-0.8); Hematocrit 39.9 % (37.0-47.0); Hemoglobin 12.4 g/dL (11.5-15.3); Lymphocytes # 1.3 10^3/uL (0.8-4.8); Lymphocytes % 19.2 %; Mean Corpuscular HGB Conc 31.1 g/dL (30.0-36.0); Mean Corpuscular Hemoglobin 29.6 pg (28.0-34.0); Mean Corpuscular Volume 95.2 fL (81-99); Mean Platelet Volume 9.2 fL (7.4-10.4); Monocytes # 0.2 10^3/uL (0.2-0.9); Monocytes % 3.2 %; Neutrophils # 5.2 10^3/uL (1.8-7.7); Neutrophils % 75.1 %; Nucleated Red Blood Cells % 0 %; Platelet Count 336 10^3/cmm (130-400); Red Blood Count 4.19 10^6/uL (4.1-5.3); Red Cell Distribution Width 13.3 % (12.1-15.1); White Blood Count 6.9 10^3/uL (4.0-10.0)
[2019-09-27 16:16] LABS: Alanine Aminotransferase 15 U/L (0-33); Albumin Level 2.8 g/dL (3.5-5.2); Alkaline Phosphatase 141 IU/L (35-105); Anion Gap 16.9 (5-19); Aspartate Amino Transferase 16 U/L (0-32); Blood Urea Nitrogen 9 mg/dL (6-20); Calcium 8.5 mg/dL (8.5-10.5); Carbon Dioxide 20 mmol/L (22-29); Chloride 102 mmol/L (98-107); Creatinine Clr Calc Pharmacy 82.7264; Globulin 2.6 g/dL (1.3-4.6); Glomerular Filtration Rate 67.7 mL/min (90-130); Glucose 119 mg/dL (65-115); Lipase 102 U/L (13-60); Osmolality Calculated 277 mOsm/kg (285-295); Potassium 3.9 mmol/L (3.5-5.1); Sodium 135 mmol/L (136-145); Total Bilirubin 0.2 mg/dL (0.15-1.2); Total Protein 5.4 g/dL (6.6-8.7)
[2019-09-27] MEDS: sodium chloride 0.9% 1,000 ML 999 ML IV (16:23)
[2019-09-27] MEDS: LORazepam 2 mg/mL INJ 1 mL IVP (16:25)
[2019-09-27 16:27] VITALS: RESP 18
[2019-09-27] MEDS: morphine 4 mg/mL SDV 1 mL IVP (16:27)
[2019-09-27 17:59] VITALS: BP 131/87; PULSE 81; RESP 18; O2SAT 95
[2019-09-27] MEDS: haloperidol inj 5 mg/mL INJ 1 mL IVP (18:03)
== END 2019-09-27 18:09 | disposition home or self-care (01) ==
PROVIDERS: Emergency Provider Family Medicine; PCP Nurse Practitioner Family
DX: K86.1 Other chronic pancreatitis (principal); Z79.82 Long term (current) use of aspirin; I10 Essential (primary) hypertension; Z87.891 Personal history of nicotine dependence
CPT/HCPCS: 12345; 80053; 81003; 83605; 83690; 85025; 96361; 96374; 96375; 99283; 99284; J1630; J2060; J2270; J7030

== ENCOUNTER 2019-10-04 02:38 | Emergency (ER) | payer SELFPAY ==
[2019-10-04] VITALS (7 sets, daily range): BP systolic 108–141; BP diastolic 67–89; PULSE 70–98; RESP 16–18; TEMP 36.9; O2SAT 96–99; BMI 29.7
--- NOTE | 2019-10-04 03:19 | CTR_ITS ---
PROCEDURE INFORMATION: Exam: CT Abdomen And Pelvis With Contrast Exam date and time: 10/04/2019 3:30 AM Age: 43 years old Clinical indication: Abdominal pain; Generalized; Prior surgery; Surgery type: Ulcer, appy, gb; Additional info: Abd pain TECHNIQUE: Imaging protocol: Computed tomography of the abdomen and pelvis with intravenous contrast. Radiation optimization: All CT scans at this facility use at least one of these dose optimization techniques: automated exposure control; mA and/or kV adjustment per patient size (includes targeted exams where dose is matched to clinical indication); or iterative reconstruction. Contrast material: OMNI 300; Contrast volume: 95 ml; Contrast route: INTRAVENOUS (IV); COMPARISON: CT abdomen pelvis w con* [id number] 09/05/2019 5:57 PM RADIATION DOSE METRICS: Total DLP (mGy-cm): 944.74 FINDINGS: Liver: Normal. No mass. Gallbladder and bile ducts: Cholecystectomy. Pancreas: Normal. No ductal dilation. Spleen: No splenomegaly. Adrenals: Normal. No mass. Kidneys and ureters: Minimal bilateral renal scarring. Stomach and bowel: Gastrojejunostomy. No obstruction. No wall thickening. Appendix: Appendectomy. Intraperitoneal space: No free air. No significant fluid collection. Vasculature: Upper abdominal coils. Lymph nodes: No enlarged lymph nodes. Bladder: Unremarkable as visualized. Reproductive: Hysterectomy. Bones/joints: Unremarkable. No acute fracture. Soft tissues: Unremarkable. CT/CT abdomen pelvis w con* [id number] IMPRESSION: No acute abnormality detected. Radiation Dose CTDIVOL = (mGy): DLP = 944.74 (mGy-cm)
--- NOTE | 2019-10-04 03:25 | ED_ITS ---
Documented by User: Christel Pendleton MD 10/04/19 05:39 HPI - Abdominal Pain General: Chief Complaint: Abdominal Pain Stated Complaint: Abd Pain Time Seen by Provider: 10/04/19 03:16 Source: patient Mode of arrival: ambulatory Limitations: no limitations History of Present Illness: HPI narrative: 43-year-old female who has a history of chronic abdominal pain states she has been having pain for the last week. Patient seen here 1 week ago with normal lab work but did not have a CT. States her pain is worsened and is mainly epigastric. She states she is also had vomiting. She denies any fevers. She denies any worsening or improving factors. MD elicited complaint: abdominal pain Onset (ago): day(s) Pain Consistency: constant Location: Diffuse Severity: severe Quality: sharp Radiation: none Migration to: no migration Exacerbating factors: nothing Associated Symptoms: Reports nausea and vomiting; Denies chills, dysuria and fever(s) Review of Systems Const: Denies: fever(s), chills, body aches or change in appetite Eyes: Denies: blurry vision or eye discomfort ENMT: Denies: throat pain or dental pain Card: Denies: chest pain Resp: Denies: dyspnea GI: Reports: abdominal pain, nausea and vomiting : Denies: dysuria Musc: Denies: neck pain or back pain Skin/Breast: Denies: rash Neuro: Denies: headache(s) Psych: Denies: depression Gomez/Lymph: Denies: easy bruising All/Imm: Denies: urticaria PFSH ED PFSH: Medical History Anastomotic ulcer S/P gastric bypass Chronic post-traumatic stress disorder Generalized anxiety disorder Hypertension Major depressive disorder, recurrent severe without psychotic features Vomiting blood Surgical History H/O esophagogastroduodenoscopy (~06/2019) H/O: hysterectomy History of partial gastrectomy Hx of cholecystectomy S/P appendectomy Family History Mother CAD (coronary artery disease) Other Hypertension Denies family history of Anesthesia complication Bleeding disorder Social History Smoking and tobacco status: former smoker Alcohol intake: never Adopted: No Caregiver/support person: Yes Lives independently: Yes Household members: family and children Housing: House Marital status: service: No Current occupational status: employed Current occupational exposures/hazards: No Pets and animals: No History of recent travel: No Sexually active: No Current gender identity: Female Teresa/Sikh: Yazidi Special teresa needs: No Agree to transfusion: No Financial difficulty paying for basics: Decline to Answer Physical Exam Const: COMMON NORMALS: no acute distress, patient oriented x3 and healthy appearing HENMT: COMMON NORMALS: normocephalic and atraumatic HEAD & SCALP: normocephalic and atraumatic Eye: COMMON NORMALS: Equal, round and reactive pupils present and EOMs intact bilaterally PUPIL: Yes Equal, round and reactive pupils present Neck/C-Spine: COMMON NORMALS: full ROM and supple Chest: COMMONS NORMALS: normal inspection of the chest and normal palpation of entire chest wall Resp: COMMON NORMALS: normal respiratory effort, No retractions, No use of accessory muscles and clear to auscultation bilaterally AUSCULTATION: clear to auscultation bilaterally Cardio: COMMON NORMALS: regular rate, regular rhythm and No murmurs present (Cardio) RATE: regular rate RHYTHM: regular rhythm GI: COMMON NORMALS: Normal to inspection, nondistended, normoactive bowel sounds present, Soft to palpation and no masses PALPATION: Yes Soft to palpation OTHER: diffuse tenderness Extremity: COMMON NORMALS: normal to inspection and full ROM Neuro: COMMON NORMALS: patient oriented x3, moves all extremities and no focal motor deficits Psych: COMMON NORMALS: mental status grossly normal, Normal thought process present and cooperative THOUGHT PROCESS: Normal thought process present Skin: COMMON NORMALS: no rashes or lesions noted and no wounds GENERAL SKIN EXAM: no rashes or lesions noted Course Vital Signs: Vital signs: Vital Signs Temperature 98.5 F 10/04/19 03:14 Pulse Rate 74 10/04/19 07:44 Respiratory Rate 16 10/04/19 07:44 Blood Pressure 108/71 10/04/19 07:44 Pulse Oximetry 98 10/04/19 07:44 MDM - Abdominal Pain MDM Narrative: Medical decision making narrative: Patient presents with abdominal pain that is chronic in nature. Patient's lab work here is normal. Patient is pending CT scan and his care is turned over to Dr. Jean to follow CT scan. Lab Data: Labs: Lab Results 10/04/19 10/04/19 10/04/19 Range/Units 03:55 03:55 05:40 WBC 9.1 (4.0-10.0) 10^3/ uL RBC 4.35 (4.1-5.3) 10^6/u L Hgb 12.8 (11.5-15.3) g/dL Hct 43.0 (37.0-47.0) % MCV 98.9 (81-99) fL MCH 29.4 (28.0-34.0) pg MCHC 29.8 L (30.0-36.0) g/dL RDW 13.8 (12.1-15.1) % Plt Count 339 (130-400) 10^3/c mm MPV 9.0 (7.4-10.4) fL Neut % (Auto) 79.0 % Lymph % (Auto) 15.7 % [place] % (Auto) 3.9 % Eos % (Auto) 0.7 % Baso % (Auto) 0.3 % Neut # (Auto) 7.2 (1.8-7.7) 10^3/u L Lymph # (Auto) 1.4 (0.8-4.8) 10^3/u L [place] # (Auto) 0.4 (0.2-0.9) 10^3/u L Eos # (Auto) 0.1 (0.0-0.8) 10^3/u L Baso # (Auto) 0.0 (0.0-0.1) 10^3/u L Nucleated RBC % (a uto) 0 % Nucleated RBCs # 0.0 /100WBC Sodium 139 (136-145) mmol/L Potassium 4.4 (3.5-5.1) mmol/L Chloride 108 H (98-107) mmol/L Carbon Dioxide 18 L (22-29) mmol/L Anion Gap 17.4 (5-19) BUN 10 (6-20) mg/dL Creatinine 0.8 (0.5-0.9) mg/dL GFR Calculation 77.6 L (90-130) mL/min Glucose 98 (65-115) mg/dL Calculated Osmolal ity 284 L (285-295) mOsm/k g Calcium 9.2 (8.5-10.5) mg/dL Total Bilirubin 0.2 (0.15-1.2) mg/dL AST 11 (0-32) U/L ALT 10 (0-33) U/L Alkaline Phosphata se 129 H (35-105) IU/L Total Protein 5.4 L (6.6-8.7) g/dL Albumin 2.8 L (3.5-5.2) g/dL Globulin 2.6 (1.3-4.6) g/dL Lipase 27 (13-60) U/L Urine Color Yellow (Yellow) Urine Appearance Clear (CLEAR) Urine pH 5 (5-7) Ur Specific Gravit y 1.005 (1.005-1.030) Urine Protein Neg (Negative) Urine Glucose (UA) Norm (Normal) Urine Ketones Negative (Negative) Urine Blood Neg (Negative) Urine Nitrate Negative (Negative) Urine Bilirubin Neg (NEGATIVE) Urine Urobilinogen Norm (Negative) mg/dL Ur Leukocyte Stephanie ase Negative (Negative) Discharge Plan Discharge Patient Disposition: Home, Self-Care Clinical Impression: Nausea and vomiting, PUD (peptic ulcer disease) Abdominal pain Qualifiers: Abdominal location: generalized Qualified Code(s): R10.84 - Generalized abdominal pain Condition: Stable Prescriptions: New Ativan 1 mg tablet 1 mg PO Q8H PRN (Reason: prn nausea) Qty: 20 RF: 0 promethazine 25 mg tablet 12.5 - 25 mg PO Q6H PRN (Reason: nausea and vomiting) Qty: 30 RF: 0 Dexilant 60 mg capsule,biphase delayed releas 60 mg PO BID 56 Days Qty: 112 RF: 0 No Action citalopram [Celexa] 20 mg tablet 20 mg PO QAM Qty: 90 RF: 2 clonazepam [Klonopin] 0.5 mg tablet 0.5 mg PO TID Qty: 90 RF: 3 trazodone 150 mg tablet 150 mg PO BEDTIME PRN (Reason: sleep) Qty: 90 RF: 2 promethazine 25 mg tablet 25 mg PO Q6H PRN (Reason: nausea and vomiting) Qty: 20 RF: 0 sucralfate 1 gram Tablet 1 g PO TID RF: 0 Dexilant 60 mg capsule,biphase delayed releas 60 mg PO DAILY Qty: 30 RF: 0 aspirin [Aspir-81] 81 mg Tablet,Delayed Release (Dr/Ec) 81 mg PO DAILY RF: 0 acetaminophen [Tylenol Extra Strength] 500 mg Tablet 500 - 1,000 mg PO PRN PRN (Reason: Pain) RF: 0 tramadol 50 mg Tablet 50 mg PO BID PRN (Reason: Pain) RF: 0 Ambien 10 mg Tablet 10 mg PO BEDTIME RF: 0 multivitamin [Multiple Vitamins] Tablet 1 tab PO DAILY RF: 0 metoprolol tartrate 25 mg Tablet 25 mg PO BID RF: 0 amlodipine 5 mg Tablet 5 mg PO DAILY 30 Days Qty: 30 RF: 0 Discharge Orders: Discharge Order (Routine); Ordered 10/04/19 Ordered By: Constantin Coley Referrals: Rosi Shell, MEDICAL APPOINTMENT CLERK [Primary Care Provider] - 1-3 days Discharge Diet: Advance as tolerated Discharge Activity: Resume usual activity Patient Instructions: Abdominal Pain (ED) Discharge Date/Time: 10/04/19 07:45 Sign Out Sign Out Data: Patient Sign Out occurred on 10/04/19 at 06:16. Patient's care was discussed, and care was transferred from to Constantin Coley DO. 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 of Care Code ED Executive Compensation Analyst for Chg Fwd Exam Comprehensive Documented by User: Constantin Coley DO 10/04/19 14:21 HPI - Abdominal Pain General: Chief Complaint: Abdominal Pain Stated Complaint: Abd Pain Time Seen by Provider: 10/04/19 03:16 PFS ED PFSH: Medical History Anastomotic ulcer S/P gastric bypass Chronic post-traumatic stress disorder Generalized anxiety disorder Hypertension Major depressive disorder, recurrent severe without psychotic features Vomiting blood Surgical History H/O esophagogastroduodenoscopy (~06/2019) H/O: hysterectomy History of partial gastrectomy Hx of cholecystectomy S/P appendectomy Family History Mother CAD (coronary artery disease) Other Hypertension Denies family history of Anesthesia complication Bleeding disorder Social History Smoking and tobacco status: former smoker Alcohol intake: never Adopted: No Caregiver/support person: Yes Lives independently: Yes Household members: family and children Housing: House Marital status: service: No Current occupational status: employed Current occupational exposures/hazards: No Pets and animals: No History of recent travel: No Sexually active: No Current gender identity: Female Teresa/Sikh: Yazidi Special teresa needs: No Agree to transfusion: No Financial difficulty paying for basics: Decline to Answer Course Vital Signs: Vital signs: Vital Signs Temperature 98.5 F 10/04/19 03:14 Pulse Rate 74 10/04/19 07:44 Respiratory Rate 16 10/04/19 07:44 Blood Pressure 108/71 10/04/19 07:44 Pulse Oximetry 98 10/04/19 07:44 MDM - Abdominal Pain MDM Narrative: Medical decision making narrative: Care assumed a change of shift from Dr. Pendleton. A CT of the abdomen is unremarkable. Reviewing her chart she has had 7 CTs in the last 3 and half to 4 months. Most which have not shown anything significant. She had a EGD in June of this year that showed an ulcer healing at the anastomosis site. Today her lipase is normal her alk phos is slightly elevated. She is currently on Dexilant last time I had seen her we had started her on Ativan as needed for her nausea. The last time she was hospitalized last month I had asked her to stop the clonazepam looks like she is back on it according to her medicine list now. I had seen the patient last week lab work and abdominal exam were not that remarkable so we had avoided repeating a CT because of the frequency of her previous CTs. She did have some clinical improvement while in the ER and was discharged home with Ativan. She had told me she has a GI consult pending at [facility]. At this point I think doubling up on her Dexilant for a time to twice a day continuing the Ativan regularly she does need to be careful if she is taking it in addition to the clonazepam however though. When I would decrease her promethazine to half tablets every 6 hours. She should stay on a generally bland diet. Lab Data: Labs: Lab Results 10/04/19 10/04/19 10/04/19 Range/Units 03:55 03:55 05:40 WBC 9.1 (4.0-10.0) 10^3/ uL RBC 4.35 (4.1-5.3) 10^6/u L Hgb 12.8 (11.5-15.3) g/dL Hct 43.0 (37.0-47.0) % MCV 98.9 (81-99) fL MCH 29.4 (28.0-34.0) pg MCHC 29.8 L (30.0-36.0) g/dL RDW 13.8 (12.1-15.1) % Plt Count 339 (130-400) 10^3/c mm MPV 9.0 (7.4-10.4) fL Neut % (Auto) 79.0 % Lymph % (Auto) 15.7 % [place] % (Auto) 3.9 % Eos % (Auto) 0.7 % Baso % (Auto) 0.3 % Neut # (Auto) 7.2 (1.8-7.7) 10^3/u L Lymph # (Auto) 1.4 (0.8-4.8) 10^3/u L [place] # (Auto) 0.4 (0.2-0.9) 10^3/u L Eos # (Auto) 0.1 (0.0-0.8) 10^3/u L Baso # (Auto) 0.0 (0.0-0.1) 10^3/u L Nucleated RBC % (a uto) 0 % Nucleated RBCs # 0.0 /100WBC Sodium 139 (136-145) mmol/L Potassium 4.4 (3.5-5.1) mmol/L Chloride 108 H (98-107) mmol/L Carbon Dioxide 18 L (22-29) mmol/L Anion Gap 17.4 (5-19) BUN 10 (6-20) mg/dL Creatinine 0.8 (0.5-0.9) mg/dL GFR Calculation 77.6 L (90-130) mL/min Glucose 98 (65-115) mg/dL Calculated Osmolal ity 284 L (285-295) mOsm/k g Calcium 9.2 (8.5-10.5) mg/dL Total Bilirubin 0.2 (0.15-1.2) mg/dL AST 11 (0-32) U/L ALT 10 (0-33) U/L Alkaline Phosphata se 129 H (35-105) IU/L Total Protein 5.4 L (6.6-8.7) g/dL Albumin 2.8 L (3.5-5.2) g/dL Globulin 2.6 (1.3-4.6) g/dL Lipase 27 (13-60) U/L Urine Color Yellow (Yellow) Urine Appearance Clear (CLEAR) Urine pH 5 (5-7) Ur Specific Gravit y 1.005 (1.005-1.030) Urine Protein Neg (Negative) Urine Glucose (UA) Norm (Normal) Urine Ketones Negative (Negative) Urine Blood Neg (Negative) Urine Nitrate Negative (Negative) Urine Bilirubin Neg (NEGATIVE) Urine Urobilinogen Norm (Negative) mg/dL Ur Leukocyte Stephanie ase Negative (Negative) Discharge Plan Discharge Patient Disposition: Home, Self-Care Clinical Impression: Nausea and vomiting, PUD (peptic ulcer disease) Abdominal pain Qualifiers: Abdominal location: generalized Qualified Code(s): R10.84 - Generalized abdominal pain Condition: Stable Prescriptions: New Ativan 1 mg tablet 1 mg PO Q8H PRN (Reason: prn nausea) Qty: 20 RF: 0 promethazine 25 mg tablet 12.5 - 25 mg PO Q6H PRN (Reason: nausea and vomiting) Qty: 30 RF: 0 Dexilant 60 mg capsule,biphase delayed releas 60 mg PO BID 56 Days Qty: 112 RF: 0 No Action citalopram [Celexa] 20 mg tablet 20 mg PO QAM Qty: 90 RF: 2 clonazepam [Klonopin] 0.5 mg tablet 0.5 mg PO TID Qty: 90 RF: 3 trazodone 150 mg tablet 150 mg PO BEDTIME PRN (Reason: sleep) Qty: 90 RF: 2 promethazine 25 mg tablet 25 mg PO Q6H PRN (Reason: nausea and vomiting) Qty: 20 RF: 0 sucralfate 1 gram Tablet 1 g PO TID RF: 0 Dexilant 60 mg capsule,biphase delayed releas 60 mg PO DAILY Qty: 30 RF: 0 aspirin [Aspir-81] 81 mg Tablet,Delayed Release (Dr/Ec) 81 mg PO DAILY RF: 0 acetaminophen [Tylenol Extra Strength] 500 mg Tablet 500 - 1,000 mg PO PRN PRN (Reason: Pain) RF: 0 tramadol 50 mg Tablet 50 mg PO BID PRN (Reason: Pain) RF: 0 Ambien 10 mg Tablet 10 mg PO BEDTIME RF: 0 multivitamin [Multiple Vitamins] Tablet 1 tab PO DAILY RF: 0 metoprolol tartrate 25 mg Tablet 25 mg PO BID RF: 0 amlodipine 5 mg Tablet 5 mg PO DAILY 30 Days Qty: 30 RF: 0 Discharge Orders: Discharge Order (Routine); Ordered 10/04/19 Ordered By: Constantin Coley Referrals: Rosi Shell, MEDICAL APPOINTMENT CLERK [Primary Care Provider] - 1-3 days Discharge Diet: Advance as tolerated Discharge Activity: Resume usual activity Patient Instructions: Abdominal Pain (ED) Discharge Date/Time: 10/04/19 07:45 Sign Out Sign Out Data: Patient Sign Out occurred on 10/04/19 at 06:16. Patient's care was discussed, and care was transferred from to Constantin Coley DO. 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 of Care Code ED Executive Compensation Analyst for Kimberly Fwzhao Exam Comprehensive
[2019-10-04 04:19] LABS: Basophils % 0.3 %; Eosinophils # 0.1 10^3/uL (0.0-0.8); Eosinophils % 0.7 %; Hemoglobin 12.8 g/dL (11.5-15.3); Lymphocytes # 1.4 10^3/uL (0.8-4.8); Lymphocytes % 15.7 %; Mean Corpuscular HGB Conc 29.8 g/dL (30.0-36.0); Mean Corpuscular Hemoglobin 29.4 pg (28.0-34.0); Mean Corpuscular Volume 98.9 fL (81-99); Monocytes # 0.4 10^3/uL (0.2-0.9); Monocytes % 3.9 %; Neutrophils # 7.2 10^3/uL (1.8-7.7); Nucleated Red Blood Cells % 0 %; Platelet Count 339 10^3/cmm (130-400); Red Blood Count 4.35 10^6/uL (4.1-5.3); Red Cell Distribution Width 13.8 % (12.1-15.1); White Blood Count 9.1 10^3/uL (4.0-10.0)
[2019-10-04 04:37] LABS: Alanine Aminotransferase 10 U/L (0-33); Albumin Level 2.8 g/dL (3.5-5.2); Alkaline Phosphatase 129 IU/L (35-105); Anion Gap 17.4 (5-19); Aspartate Amino Transferase 11 U/L (0-32); Blood Urea Nitrogen 10 mg/dL (6-20); Calcium 9.2 mg/dL (8.5-10.5); Carbon Dioxide 18 mmol/L (22-29); Chloride 108 mmol/L (98-107); Globulin 2.6 g/dL (1.3-4.6); Glomerular Filtration Rate 77.6 mL/min (90-130); Glucose 98 mg/dL (65-115); Lipase 27 U/L (13-60); Osmolality Calculated 284 mOsm/kg (285-295); Potassium 4.4 mmol/L (3.5-5.1); Sodium 139 mmol/L (136-145); Total Bilirubin 0.2 mg/dL (0.15-1.2); Total Protein 5.4 g/dL (6.6-8.7)
[2019-10-04] MEDS: morphine 4 mg/mL SDV 1 mL IVP (04:51)
[2019-10-04] MEDS: diphenhydrAMINE 50 mg/mL SDV 1mL IVP (04:51)
[2019-10-04] MEDS: promethazine 25 mg/mL SDV 1 mL IM (04:52)
[2019-10-04] MEDS: sodium chloride 0.9% 1,000 ML 999 ML IV (04:52)
[2019-10-04] MEDS: iohexol 300 mg/mL 100 mL Btl IV (05:15)
[2019-10-04 06:16] LABS: Add Urine Microscopic? NO
[2019-10-04 06:29] LABS: Bilirubin Urine Neg (NEGATIVE); Blood Urine Neg (Negative); Glucose Urine UA Norm (Normal); Ketones Urine Negative (Negative); Leukocyte Esterase Urine Negative (Negative); Nitrate Urine Negative (Negative); Protein Urine Neg (Negative); Specific Gravity, Urine 1.005 (1.005-1.030); Urine Appearance Clear (CLEAR); Urine Color Yellow (Yellow); Urobilinogen Urine Norm (Negative); pH Urine 5 (5-7)
[2019-10-04] MEDS: LORazepam 2 mg/mL INJ 1 mL 1 MG IVP (07:19)
[2019-10-04] MEDS: haloperidol inj 5 mg/mL INJ 1 mL IVP (07:19)
== END 2019-10-04 07:45 | disposition home or self-care (01) ==
PROVIDERS: Emergency Medicine; Emergency Provider Family Medicine; PCP Nurse Practitioner Family
DX: K27.9 Peptic ulcer, site unspecified, unspecified as acute or chronic, without hemorrhage or perforation (principal); Z79.82 Long term (current) use of aspirin; I10 Essential (primary) hypertension; Z87.891 Personal history of nicotine dependence
CPT/HCPCS: 12345; 74177; 80053; 81003; 83690; 85025; 96361; 96374; 96375; 99283; 99284; J1200; J1630; J2060; J2270; J2550; J7030; Q9967

== ENCOUNTER 2019-10-14 09:37 | Emergency (ER) | payer SELFPAY ==
[2019-10-14] VITALS (10 sets, daily range): BP systolic 100–116; BP diastolic 54–66; PULSE 62–75; RESP 15–19; TEMP 36.4; O2SAT 96–99; BMI 29.7
--- NOTE | 2019-10-14 09:47 | W.ED.ABDPA2 ---
HPI - Abdominal Pain General: Chief Complaint: Abdominal Pain Stated Complaint: ABD PAIN, N/V BLOOD Time Seen by Provider: 10/14/19 09:43 History of Present Illness: HPI narrative: Patient is a 43-year-old female who comes to the ED with abdominal pain, nausea/vomiting. Patient has a history of chronic abdominal pain and was last seen here on October 03 for similar complaint. Symptoms started last Monday. Patient says she is in trouble keeping any food or drink down. She says she has had chills but denies a fever. The pain is in the upper abdomen and radiates to the left upper quadrant. She states that this abdominal pain is different than it has been in her previous visits. The abdominal pain moving into the left upper quadrant is different than last time. She currently rates abdominal pain a 10 out of 10. She complains of having multiple episodes of emesis since Monday and has had some blood in her recent emesis. She describes the blood seen in her emesis is a thick clot. Denies any chest pain, shortness of breath, fever, diarrhea, constipation, blood in the stool, hematuria, dysuria. Associated Symptoms: Reports chills, hematemesis, nausea and vomiting; Denies constipation, diarrhea, dysuria, fever(s), hematochezia and hematuria Review of Systems Const: Reports: chills; Denies: fever(s) or fatigue Eyes: Denies: change in vision or eye discomfort ENMT: Denies: throat pain, odynophagia, nasal discharge or nasal congestion Card: Denies: chest pain, palpitations, edema, swelling of feet/ankles, dyspnea on exertion or orthopnea Resp: Denies: dyspnea, productive cough or non-productive cough GI: Reports: abdominal pain, nausea, vomiting and hematemesis; Denies: diarrhea, constipation or hematochezia : Denies: flank pain, dysuria or hematuria Musc: Denies: neck pain, back pain or extremity swelling Skin/Breast: Denies: rash or new lesions Neuro: Denies: headache(s), numbness in extremities or weakness in extremities [facility] ED PFSH: Medical History Anastomotic ulcer S/P gastric bypass Chronic post-traumatic stress disorder Generalized anxiety disorder Hypertension Major depressive disorder, recurrent severe without psychotic features Vomiting blood Surgical History H/O esophagogastroduodenoscopy (~06/2019) H/O: hysterectomy History of partial gastrectomy Hx of cholecystectomy S/P appendectomy Family History Mother CAD (coronary artery disease) Other Hypertension Denies family history of Anesthesia complication Bleeding disorder Social History Smoking and tobacco status: former smoker Alcohol intake: never Adopted: No Caregiver/support person: Yes Lives independently: Yes Household members: family and children Housing: House Marital status: service: No Current occupational status: employed Current occupational exposures/hazards: No Pets and animals: No History of recent travel: No Sexually active: No Current gender identity: Female Teresa/Mandaeism: Taoist Special teresa needs: No Agree to transfusion: No Financial difficulty paying for basics: Decline to Answer Physical Exam Const: COMMON NORMALS: no acute distress, patient oriented x3 and alert GENERAL APPEARANCE: cooperative and comfortable HENMT: COMMON NORMALS: normocephalic HEAD & SCALP: normocephalic MOUTH: moist mucous membranes abnormal Details: parched THROAT: posterior oropharynx normal and uvula midline Eye: COMMON NORMALS: Equal, round and reactive pupils present PUPIL: Yes Equal, round and reactive pupils present Neck/C-Spine: COMMON NORMALS: supple GENERAL: Yes normal visual inspection Resp: COMMON NORMALS: normal respiratory effort, No retractions, No use of accessory muscles and clear to auscultation bilaterally AUSCULTATION: clear to auscultation bilaterally Cardio: COMMON NORMALS: regular rate, regular rhythm, S1 normal heart sound present, S2 normal heart sound present, No gallops present (Cardio), No clicks present (Cardio), No murmurs present (Cardio) and Peripheral pulses 2+ throughout RATE: regular rate RHYTHM: regular rhythm HEART SOUNDS: S1 normal heart sound present and S2 normal heart sound present PERIPHERAL PULSES: Peripheral pulses 2+ throughout GI: COMMON NORMALS: Normal to inspection, nondistended, normoactive bowel sounds present, Soft to palpation and no masses PALPATION: Yes Soft to palpation and Yes Tenderness to palpation present (GI) Details: LUQ and other (Epigastric tenderness and also left upper quadrant tenderness.) : COMMON NORMALS: Yes no CVA tenderness BLADDER/KIDNEY EXAM: Yes no CVA tenderness Back/Pelvis: COMMON NORMALS: no CVA tenderness Extremity: COMMON NORMALS: normal to inspection and no pedal edema Neuro: COMMON NORMALS: patient oriented x3 SENSORIUM/ORIENTATION: Yes alert GAIT: Yes Normal gait present Skin: COMMON NORMALS: no rashes or lesions noted GENERAL SKIN EXAM: no rashes or lesions noted and dry skin Course Vital Signs: Vital signs: Vital Signs Temperature 97.5 F L 10/14/19 09:41 Pulse Rate 62 10/14/19 15:28 Respiratory Rate 16 10/14/19 15:28 Blood Pressure 116/65 10/14/19 15:28 Pulse Oximetry 97 10/14/19 15:28 MDM - Abdominal Pain MDM Narrative: Medical decision making narrative: Patient is a 43-year-old female who comes to the ED with abdominal pain. Patient has been seen multiple times in the ED for similar complaint. She does have a past medical history of pancreatitis. Lipase 26. White blood cell count 7.5. Patient was describing that this abdominal pain was much different than her past abdominal pain and stated she was having pain shooting to her left upper quadrant. CT of the abdomen was performed and showed no acute findings. She had no episodes of emesis while here on the unit. Patient was discharged with promethazine and Bentyl. She was told to follow-up with her PCP in 7 to 10 days. Return to ED if symptoms worsen. Patient understood and agreed with plan. Lab Data: Attestation: I reviewed the patient's lab results. Labs: Lab Results 10/14/19 10/14/19 10/14/19 Range/Units 09:51 11:10 11:10 WBC 7.5 (4.0-10.0) 10^3/ uL RBC 3.69 L (4.1-5.3) 10^6/u L Hgb 10.6 L (11.5-15.3) g/dL Hct 35.2 L (37.0-47.0) % MCV 95.4 (81-99) fL MCH 28.7 (28.0-34.0) pg MCHC 30.1 (30.0-36.0) g/dL RDW 14.0 (12.1-15.1) % Plt Count 250 (130-400) 10^3/c mm MPV 9.3 (7.4-10.4) fL Neut % (Auto) 51.7 % Lymph % (Auto) 28.4 % [place] % (Auto) 6.6 % Eos % (Auto) 12.2 % Baso % (Auto) 0.8 % Neut # (Auto) 3.90 (1.8-7.7) 10^3/u L Lymph # (Auto) 2.1 (0.8-4.8) 10^3/u L [place] # (Auto) 0.5 (0.2-0.9) 10^3/u L Eos # (Auto) 0.9 H (0.0-0.8) 10^3/u L Baso # (Auto) 0.1 (0.0-0.1) 10^3/u L Nucleated RBC % (a uto) 0 % Nucleated RBCs # 0.0 /100WBC Sodium 142 (136-145) mmol/L Potassium 3.4 L (3.5-5.1) mmol/L Chloride 112 H (98-107) mmol/L Carbon Dioxide 21 L (22-29) mmol/L Anion Gap 12.4 (5-19) BUN 8 (6-20) mg/dL Creatinine 0.7 (0.5-0.9) mg/dL GFR Calculation 90.5 (90-130) mL/min Glucose 77 (65-115) mg/dL Calculated Osmolal ity 289 (285-295) mOsm/k g Calcium 8.2 L (8.5-10.5) mg/dL Total Bilirubin 0.2 (0.15-1.2) mg/dL AST 14 (0-32) U/L ALT 11 (0-33) U/L Alkaline Phosphata se 114 H (35-105) IU/L Total Protein 4.2 L (6.6-8.7) g/dL Albumin 2.5 L (3.5-5.2) g/dL Globulin 1.7 (1.3-4.6) g/dL Lipase 26 (13-60) U/L HCG, Qual (Negative) Urine Color Yellow (Yellow) Urine Appearance Sl cloudy A (CLEAR) Urine pH 6 (5-7) Ur Specific Gravit y 1.015 (1.005-1.030) Urine Protein Neg (Negative) Urine Glucose (UA) Norm (Normal) Urine Ketones Negative (Negative) Urine Blood Neg (Negative) Urine Nitrate Negative (Negative) Urine Bilirubin Neg (NEGATIVE) Urine Urobilinogen Norm (Negative) mg/dL Ur Leukocyte Stephanie ase Trace H (Negative) Urine RBC 0-4 H (0-2) /hpf Urine WBC 10-15 H (0-5) /hpf Ur Squamous Epith Cells 15-25 H (0-5) Amorphous Sediment Trace Urine Bacteria Trace (NONE) Urine Mucus Trace 10/14/19 Range/Units 11:10 WBC (4.0-10.0) 10^3/ uL RBC (4.1-5.3) 10^6/u L Hgb (11.5-15.3) g/dL Hct (37.0-47.0) % MCV (81-99) fL MCH (28.0-34.0) pg MCHC (30.0-36.0) g/dL RDW (12.1-15.1) % Plt Count (130-400) 10^3/c mm MPV (7.4-10.4) fL Neut % (Auto) % Lymph % (Auto) % [place] % (Auto) % Eos % (Auto) % Baso % (Auto) % Neut # (Auto) (1.8-7.7) 10^3/u L Lymph # (Auto) (0.8-4.8) 10^3/u L [place] # (Auto) (0.2-0.9) 10^3/u L Eos # (Auto) (0.0-0.8) 10^3/u L Baso # (Auto) (0.0-0.1) 10^3/u L Nucleated RBC % (a uto) % Nucleated RBCs # /100WBC Sodium (136-145) mmol/L Potassium (3.5-5.1) mmol/L Chloride (98-107) mmol/L Carbon Dioxide (22-29) mmol/L Anion Gap (5-19) BUN (6-20) mg/dL Creatinine (0.5-0.9) mg/dL GFR Calculation (90-130) mL/min Glucose (65-115) mg/dL Calculated Osmolal ity (285-295) mOsm/k g Calcium (8.5-10.5) mg/dL Total Bilirubin (0.15-1.2) mg/dL AST (0-32) U/L ALT (0-33) U/L Alkaline Phosphata se (35-105) IU/L Total Protein (6.6-8.7) g/dL Albumin (3.5-5.2) g/dL Globulin (1.3-4.6) g/dL Lipase (13-60) U/L HCG, Qual Negative (Negative) Urine Color (Yellow) Urine Appearance (CLEAR) Urine pH (5-7) Ur Specific Gravit y (1.005-1.030) Urine Protein (Negative) Urine Glucose (UA) (Normal) Urine Ketones (Negative) Urine Blood (Negative) Urine Nitrate (Negative) Urine Bilirubin (NEGATIVE) Urine Urobilinogen (Negative) mg/dL Ur Leukocyte Stephanie ase (Negative) Urine RBC (0-2) /hpf Urine WBC (0-5) /hpf Ur Squamous Epith Cells (0-5) Amorphous Sediment Urine Bacteria (NONE) Urine Mucus Imaging Data ^: CT Abd/Pel: Attestation: I personally reviewed and interpreted this imaging study as follows: Radiologist's impression: [place] [address] CT Scan Report Signed Patient: Therese Schaefer Unit #: [id number] : 1975 Age/Sex: 43 / F ADM Date: 10/14/19 Loc: ER Room/Bed: Attending Dr: Ordering Provider/Ordering MD: Jose Elias Mcdowell Date of Service: 10/14/19 Procedure(s): CT abdomen pelvis w con* [id number] Accession Number(s): [id number] Report Number: [id number] PROCEDURE INFORMATION: Exam: CT Abdomen And Pelvis With Contrast Exam date and time: 10/14/2019 2:23 PM Age: 43 years old Clinical indication: Abdominal pain; Acute; Prior surgery; Surgery date: 6+ months; Surgery type: Ulcer, gb/ appy; Additional info: Abdominal pain, n/v TECHNIQUE: Imaging protocol: Computed tomography of the abdomen and pelvis with intravenous contrast. Radiation optimization: All CT scans at this facility use at least one of these dose optimization techniques: automated exposure control; mA and/or kV adjustment per patient size (includes targeted exams where dose is matched to clinical indication); or iterative reconstruction. Contrast material: OMNI 300; Contrast volume: 95 ml; Contrast route: INTRAVENOUS (IV); COMPARISON: CT abdomen pelvis w con* [id number] 10/04/2019 5:07 AM RADIATION DOSE METRICS: Total DLP (mGy-cm): 896.26 FINDINGS: Liver: Normal. No mass. Gallbladder and bile ducts: Cholecystectomy clips. Mild intrahepatic biliary ductal dilatation and prominence of the common bile duct, likely post cholecystectomy ectasia. Pancreas: Normal. No ductal dilation. Spleen: Normal. No splenomegaly. Adrenals: Normal. No mass. Kidneys and ureters: Normal. No hydronephrosis. Stomach and bowel: Moderate colonic fecal load. Evidence of prior gastric surgery. Appendix: No evidence of appendicitis. Intraperitoneal space: Unremarkable. No free air. No significant fluid collection. Vasculature: Unremarkable. No abdominal aortic aneurysm. Lymph nodes: Scattered mesenteric prominent lymph nodes with the largest measuring 1 cm. Bladder: Unremarkable as visualized. Reproductive: Hysterectomy. Bones/joints: Mild degenerative changes of the spine. Soft tissues: Unremarkable. CT/CT abdomen pelvis w con* [id number] IMPRESSION: No acute abdominal or pelvic abnormality. Prominent mesenteric lymph nodes. Etiology infectious/inflammatory. Radiation Dose CTDIVOL = (mGy): DLP = 896.26 (mGy-cm) Dictated By: Hernan Winter MD Signed By: Hernan Winter MD Signed Date/Time: 10/14/191505 DD/ 150 Discharge Plan Discharge Patient Disposition: Home, Self-Care Clinical Impression: Abdominal pain Qualifiers: Abdominal location: left upper quadrant Qualified Code(s): R10.12 - Left upper quadrant pain Condition: Stable Prescriptions: New promethazine 25 mg tablet 25 mg PO TID PRN (Reason: nausea and vomiting) Qty: 20 RF: 0 dicyclomine 20 mg tablet 20 mg PO QID Qty: 30 RF: 0 No Action citalopram [Celexa] 20 mg tablet 20 mg PO QAM Qty: 90 RF: 2 clonazepam [Klonopin] 0.5 mg tablet 0.5 mg PO TID Qty: 90 RF: 3 trazodone 150 mg tablet 150 mg PO BEDTIME PRN (Reason: sleep) Qty: 90 RF: 2 sucralfate 1 gram Tablet 1 g PO TID RF: 0 aspirin [Aspir-81] 81 mg Tablet,Delayed Release (Dr/Ec) 81 mg PO DAILY RF: 0 acetaminophen [Tylenol Extra Strength] 500 mg Tablet 500 - 1,000 mg PO PRN PRN (Reason: Pain) RF: 0 zolpidem [Ambien] 10 mg Tablet 10 mg PO BEDTIME RF: 0 lorazepam [Ativan] 1 mg tablet 1 mg PO Q8H PRN (Reason: prn nausea) Qty: 20 RF: 0 promethazine 25 mg tablet 12.5 - 25 mg PO Q6H PRN (Reason: nausea and vomiting) Qty: 30 RF: 0 multivitamin [Multiple Vitamins] Tablet 1 tab PO DAILY RF: 0 metoprolol tartrate 25 mg Tablet 25 mg PO BID RF: 0 amlodipine 5 mg Tablet 5 mg PO DAILY RF: 0 Dexilant 60 mg capsule,biphase delayed releas 60 mg PO BID RF: 0 Discharge Orders: Discharge Order (Routine); Ordered 10/14/19 Ordered By: Jose Elias Mcdowell Referrals: Rosi Shell, [employer] [Primary Care Provider] - Discharge Diet: Advance as tolerated and Clear Liquid Discharge Activity: Increase activity as tolerated Patient Instructions: Abdominal Pain (ED) Activity Restrictions/Additional Instructions: Follow-up with medical provider as directed in 5-7 days. Take new discharge medications as prescribed. Continue taking all home medications as prescribed. Clear liquid diet for the next 24 hours then advance as tolerated. Return to the ER or your medical provider if condition worsens. Please read and understand discharge instructions. If any questions, please ask. 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
[2019-10-14 10:28] LABS: Add Urine Microscopic? YES; Bilirubin Urine Neg (NEGATIVE); Blood Urine Neg (Negative); Glucose Urine UA Norm (Normal); Ketones Urine Negative (Negative); Leukocyte Esterase Urine Trace (Negative); Nitrate Urine Negative (Negative); Protein Urine Neg (Negative); Specific Gravity, Urine 1.015 (1.005-1.030); Urine Color Yellow (Yellow); Urobilinogen Urine Norm (Negative); pH Urine 6 (5-7)
[2019-10-14] MEDS: sodium chloride 0.9% 1,000 ML 999 ML IV ×2 (11:06→14:27)
[2019-10-14] MEDS: LORazepam 2 mg/mL INJ 1 mL 1 MG IVP (11:19)
[2019-10-14 11:20] LABS: Basophils # 0.1 10^3/uL (0.0-0.1); Basophils % 0.8 %; Eosinophils # 0.9 10^3/uL (0.0-0.8); Eosinophils % 12.2 %; Hematocrit 35.2 % (37.0-47.0); Hemoglobin 10.6 g/dL (11.5-15.3); Lymphocytes # 2.1 10^3/uL (0.8-4.8); Lymphocytes % 28.4 %; Mean Corpuscular HGB Conc 30.1 g/dL (30.0-36.0); Mean Corpuscular Hemoglobin 28.7 pg (28.0-34.0); Mean Corpuscular Volume 95.4 fL (81-99); Mean Platelet Volume 9.3 fL (7.4-10.4); Monocytes # 0.5 10^3/uL (0.2-0.9); Monocytes % 6.6 %; Neutrophils % 51.7 %; Nucleated Red Blood Cells % 0 %; Platelet Count 250 10^3/cmm (130-400); Red Blood Count 3.69 10^6/uL (4.1-5.3); White Blood Count 7.5 10^3/uL (4.0-10.0)
[2019-10-14 11:20] LABS: RBC Urine 0-4 /hpf (0-2); Squamous Epithelial Cell Urine 15-25 (0-5)
[2019-10-14 11:21] LABS: Add Urine Culture? No; Amorphous Sediment Urine TRACE; Bacteria Urine TRACE; Mucus Urine TRACE
[2019-10-14] MEDS: morphine 4 mg/mL SDV 1 mL IVP (11:21)
[2019-10-14 11:27] LABS: HCG, Serum Qual Negative (Negative)
[2019-10-14 11:39] LABS: Alanine Aminotransferase 11 U/L (0-33); Albumin Level 2.5 g/dL (3.5-5.2); Alkaline Phosphatase 114 IU/L (35-105); Anion Gap 12.4 (5-19); Aspartate Amino Transferase 14 U/L (0-32); Blood Urea Nitrogen 8 mg/dL (6-20); Calcium 8.2 mg/dL (8.5-10.5); Carbon Dioxide 21 mmol/L (22-29); Chloride 112 mmol/L (98-107); Globulin 1.7 g/dL (1.3-4.6); Glomerular Filtration Rate 90.5 mL/min (90-130); Glucose 77 mg/dL (65-115); Lipase 26 U/L (13-60); Osmolality Calculated 289 mOsm/kg (285-295); Potassium 3.4 mmol/L (3.5-5.1); Sodium 142 mmol/L (136-145); Total Bilirubin 0.2 mg/dL (0.15-1.2); Total Protein 4.2 g/dL (6.6-8.7)
[2019-10-14] MEDS: HYDROmorphone 1 mg/mL INJ 1 mL IVP ×3 (12:42→15:18)
[2019-10-14] MEDS: haloperidol inj 5 mg/mL INJ 1 mL IVP (12:42)
--- NOTE | 2019-10-14 12:47 | CTR_ITS ---
PROCEDURE INFORMATION: Exam: CT Abdomen And Pelvis With Contrast Exam date and time: 10/14/2019 2:23 PM Age: 43 years old Clinical indication: Abdominal pain; Acute; Prior surgery; Surgery date: 6+ months; Surgery type: Ulcer, gb/ appy; Additional info: Abdominal pain, n/v TECHNIQUE: Imaging protocol: Computed tomography of the abdomen and pelvis with intravenous contrast. Radiation optimization: All CT scans at this facility use at least one of these dose optimization techniques: automated exposure control; mA and/or kV adjustment per patient size (includes targeted exams where dose is matched to clinical indication); or iterative reconstruction. Contrast material: OMNI 300; Contrast volume: 95 ml; Contrast route: INTRAVENOUS (IV); COMPARISON: CT abdomen pelvis w con* [id number] 10/04/2019 5:07 AM RADIATION DOSE METRICS: Total DLP (mGy-cm): 896.26 FINDINGS: Liver: Normal. No mass. Gallbladder and bile ducts: Cholecystectomy clips. Mild intrahepatic biliary ductal dilatation and prominence of the common bile duct, likely post cholecystectomy ectasia. Pancreas: Normal. No ductal dilation. Spleen: Normal. No splenomegaly. Adrenals: Normal. No mass. Kidneys and ureters: Normal. No hydronephrosis. Stomach and bowel: Moderate colonic fecal load. Evidence of prior gastric surgery. Appendix: No evidence of appendicitis. Intraperitoneal space: Unremarkable. No free air. No significant fluid collection. Vasculature: Unremarkable. No abdominal aortic aneurysm. Lymph nodes: Scattered mesenteric prominent lymph nodes with the largest measuring 1 cm. Bladder: Unremarkable as visualized. Reproductive: Hysterectomy. Bones/joints: Mild degenerative changes of the spine. Soft tissues: Unremarkable. CT/CT abdomen pelvis w con* [id number] IMPRESSION: No acute abdominal or pelvic abnormality. Prominent mesenteric lymph nodes. Etiology infectious/inflammatory. Radiation Dose CTDIVOL = (mGy): DLP = 896.26 (mGy-cm)
--- NOTE | 2019-10-14 14:33 | PC.NURSE ---
patient to ct
[2019-10-14] MEDS: iohexol 300 mg/mL 100 mL Btl IV (14:48)
== END 2019-10-14 15:28 | disposition home or self-care (01) ==
PROVIDERS: Emergency Provider Physician Assistant; PCP Nurse Practitioner Family
DX: R10.12 Left upper quadrant pain (principal); Z79.82 Long term (current) use of aspirin; I10 Essential (primary) hypertension; Z87.891 Personal history of nicotine dependence
CPT/HCPCS: 12345; 36415; 74177; 80053; 81001; 81003; 83690; 84703; 85025; 96361; 96374; 96375; 96376; 99283; 99284; J1170; J1630; J2060; J2270; J7030; Q9967

== ENCOUNTER 2019-11-03 07:45 | Emergency (ER) | payer SELFPAY ==
--- NOTE | 2019-11-03 07:47 | ED_ITS ---
HPI - GI Bleed General: Chief complaint: Nausea/Vomiting/Diarrhea Stated complaint: VOMITING BLOOD Time Seen by Provider: 11/03/19 07:47 Source: patient Mode of arrival: ambulatory Limitations: no limitations History of Present Illness: HPI Narrative: Patient is a 43-year-old female who presents to ED today with complaints of upper abdominal pain and 2 episodes of bloody emesis that have occurred over the past 2 days. Patient tells me she does have a history of gastric ulcers. She received an endoscopy in [place] 2 weeks ago and told these ulcers were still present. Patient has been treating with Carafate and Dexilant. Patient has not noticed any coffee-ground emesis. She has not noticed any bright red or melanotic stools. Patient used to take Phenergan for nausea however has recently became allergic to it . She also has allergies to Reglan, Compazine, Zofran. Patient has been seen here in our emergency department several times for very similar symptoms. She has had several CT scans performed of her abdomen and pelvis over the past several months never showing any acute pathology. Associated symptoms: Reports abdominal pain, nausea and vomiting; Denies fever(s) or headache(s) Review of Systems Const: Denies: fever(s) ENMT: Denies: throat pain or odynophagia Card: Denies: chest pain Resp: Denies: dyspnea GI: Reports: abdominal pain, nausea, vomiting and hematemesis; Denies: coffee ground emesis, diarrhea, constipation, change in bowel habits, change in stool character, hematochezia or melena Musc: Denies: neck pain or back pain Neuro: Denies: headache(s) PFS ED PFSH: Medical History (Updated 11/03/19 @ 10:35 by LUCILLE Pathak) Anastomotic ulcer S/P gastric bypass Chronic post-traumatic stress disorder Generalized anxiety disorder Hypertension Major depressive disorder, recurrent severe without psychotic features Vomiting blood Surgical History H/O esophagogastroduodenoscopy (~06/2019) H/O: hysterectomy History of partial gastrectomy Hx of cholecystectomy S/P appendectomy Family History Mother CAD (coronary artery disease) Other Hypertension Denies family history of Anesthesia complication Bleeding disorder Social History Smoking and tobacco status: former smoker Alcohol intake: never Adopted: No Caregiver/support person: Yes Lives independently: Yes Household members: family and children Housing: House Marital status: service: No Current occupational status: employed Current occupational exposures/hazards: No Pets and animals: No History of recent travel: No Sexually active: No Current gender identity: Female Teresa/Temple: Rastafari Special teresa needs: No Agree to transfusion: No Financial difficulty paying for basics: Decline to Answer Physical Exam Const: COMMON NORMALS: no acute distress, patient oriented x3, no limitations and alert HENMT: COMMON NORMALS: normocephalic and atraumatic HEAD & SCALP: normocephalic and atraumatic Resp: COMMON NORMALS: normal respiratory effort and clear to auscultation bilaterally AUSCULTATION: clear to auscultation bilaterally Cardio: COMMON NORMALS: regular rhythm RATE: tachycardic RHYTHM: regular rhythm GI: COMMON NORMALS: Normal to inspection, nondistended, normoactive bowel sounds present, Soft to palpation, No hepatosplenomegaly present and no masses PALPATION: Yes Soft to palpation, Yes Tenderness to palpation present (GI) (througout upper abdomen) and Yes No hepatosplenomegaly present : COMMON NORMALS: Yes no CVA tenderness BLADDER/KIDNEY EXAM: Yes no CVA tenderness Back/Pelvis: COMMON NORMALS: no CVA tenderness Extremity: COMMON NORMALS: normal to inspection Neuro: COMMON NORMALS: patient oriented x3 SENSORIUM/ORIENTATION: Yes alert Skin: COMMON NORMALS: no rashes or lesions noted GENERAL SKIN EXAM: no rashes or lesions noted Course Vital Signs: Vital signs: Vital Signs Temperature 97.5 F L 11/03/19 07:49 Pulse Rate 109 H 11/03/19 10:23 Respiratory Rate 16 11/03/19 10:23 Blood Pressure 142/96 11/03/19 10:23 Pulse Oximetry 97 11/03/19 10:23 MDM - GI Bleed MDM Narrative: Medical decision making narrative: Patient's pain and nausea much improved after medications and fluids here. There is no need to obtain any emergent imaging as patient has had several CT scans previously all essentially normal. She does have a known gastric ulcer and is treating with Carafate and Dexilant. She states she will contact [facility] tomorrow and schedule a GI follow- up. Patient's labs overall look okay. She does have a low bicarb of 16. She was tachycardic on exam therefore I ordered an ABG to evaluate for metabolic acidosis. Patient's pH is slightly low at 7.33. Patient's lipase is elevated at 199. Patient is requesting to go home at this time. She would most likely benefit from hospitalization but states her ride is here and again would like to go. She is requesting something for nausea to go home with. Again patient states she has allergies to Compazine, Reglan, Zofran, Phenergan. She states the Ativan does help slightly with nausea but states she ran out of this medication 3 to 4 days ago. We will give her a refill of this. Return to ED p recautions given. Lab Data: Labs: Lab Results 11/03/19 11/03/19 11/03/19 Range/Units 08:11 08:11 08:11 WBC 5.0 (4.0-10.0) 10^3/ uL RBC 4.27 (4.1-5.3) 10^6/u L Hgb 12.3 (11.5-15.3) g/dL Hct 40.7 (37.0-47.0) % MCV 95.3 (81-99) fL MCH 28.8 (28.0-34.0) pg MCHC 30.2 (30.0-36.0) g/dL RDW 16.0 H (12.1-15.1) % Plt Count 291 (130-400) 10^3/c mm MPV 9.1 (7.4-10.4) fL Neut % (Auto) 73.4 % Lymph % (Auto) 17.8 % [place] % (Auto) 5.4 % Eos % (Auto) 1.6 % Baso % (Auto) 1.2 % Neut # (Auto) 3.66 (1.8-7.7) 10^3/u L Lymph # (Auto) 0.9 (0.8-4.8) 10^3/u L [place] # (Auto) 0.3 (0.2-0.9) 10^3/u L Eos # (Auto) 0.1 (0.0-0.8) 10^3/u L Baso # (Auto) 0.1 (0.0-0.1) 10^3/u L Nucleated RBC % (a uto) 0 % Nucleated RBCs # 0.0 /100WBC Specimen Type Sample Site ABG pH (7.35-7.45) ABG pCO2 (35-45) mmHg ABG pO2 (80.0-100.0) mmH g ABG HCO3 (22-26) mmol/L ABG O2 Saturation ABG Base Excess (-2.0-2.0) mmol/ L Caleb Test A-a O2 Gradient (5-10) mmHg Hematocrit (37-47) % Hgb O2 Saturation (95-100) % Carboxyhemoglobin (0.4-20.1) %THgb Methemoglobin (0.4-1.5) % Total Hemoglobin (12-16) g/dL Ionized Calcium (1.1-1.4) mmol/L O2 Delivery Device FiO2 % Seat Coverer ID Sodium 140 (136-145) mmol/L Potassium 3.5 (3.5-5.1) mmol/L Chloride 112 H (98-107) mmol/L Carbon Dioxide 16 L (22-29) mmol/L Anion Gap 15.5 (5-19) BUN 10 (6-20) mg/dL Creatinine 1.0 H (0.5-0.9) mg/dL GFR Calculation 60.0 L (90-130) mL/min Glucose 117 H (65-115) mg/dL Calculated Osmolal ity 287 (285-295) mOsm/k g Calcium 8.9 (8.5-10.5) mg/dL Total Bilirubin 0.2 (0.15-1.2) mg/dL AST 24 (0-32) U/L ALT 15 (0-33) U/L Alkaline Phosphata se 152 H (35-105) IU/L Total Protein 5.6 L (6.6-8.7) g/dL Albumin 3.1 L (3.5-5.2) g/dL Globulin 2.5 (1.3-4.6) g/dL Lipase 199 H (13-60) U/L HCG, Qual Negative (Negative) Urine Color (Yellow) Urine Appearance (CLEAR) Urine pH (5-7) Ur Specific Gravit y (1.005-1.030) Urine Protein (Negative) Urine Glucose (UA) (Normal) Urine Ketones (Negative) Urine Blood (Negative) Urine Nitrate (Negative) Urine Bilirubin (NEGATIVE) Urine Urobilinogen (Negative) mg/dL Ur Leukocyte Stephanie ase (Negative) 11/03/19 11/03/19 Range/Units 08:26 10:16 WBC (4.0-10.0) 10^3/ uL RBC (4.1-5.3) 10^6/u L Hgb (11.5-15.3) g/dL Hct (37.0-47.0) % MCV (81-99) fL MCH (28.0-34.0) pg MCHC (30.0-36.0) g/dL RDW (12.1-15.1) % Plt Count (130-400) 10^3/c mm MPV (7.4-10.4) fL Neut % (Auto) % Lymph % (Auto) % [place] % (Auto) % Eos % (Auto) % Baso % (Auto) % Neut # (Auto) (1.8-7.7) 10^3/u L Lymph # (Auto) (0.8-4.8) 10^3/u L [place] # (Auto) (0.2-0.9) 10^3/u L Eos # (Auto) (0.0-0.8) 10^3/u L Baso # (Auto) (0.0-0.1) 10^3/u L Nucleated RBC % (a uto) % Nucleated RBCs # /100WBC Specimen Type Arterial Sample Site Radial, left ABG pH 7.33 L (7.35-7.45) ABG pCO2 28.4 L (35-45) mmHg ABG pO2 92.3 (80.0-100.0) mmH g ABG HCO3 14.9 L (22-26) mmol/L ABG O2 Saturation 97.0 ABG Base Excess -9.8 L (-2.0-2.0) mmol/ L Caleb Test Pos A-a O2 Gradient 2.7 L (5-10) mmHg Hematocrit 36.1 L (37-47) % Hgb O2 Saturation 95.4 (95-100) % Carboxyhemoglobin 0.3 L (0.4-20.1) %THgb Methemoglobin 1.4 (0.4-1.5) % Total Hemoglobin 11.8 L (12-16) g/dL Ionized Calcium 1.2 (1.1-1.4) mmol/L O2 Delivery Device Room air FiO2 21.0 % Seat Coverer ID Cak Sodium 139.0 (136-145) mmol/L Potassium 3.4 L (3.5-5.1) mmol/L Chloride (98-107) mmol/L Carbon Dioxide (22-29) mmol/L Anion Gap (5-19) BUN (6-20) mg/dL Creatinine (0.5-0.9) mg/dL GFR Calculation (90-130) mL/min Glucose 101.0 (65-115) mg/dL Calculated Osmolal ity (285-295) mOsm/k g Calcium (8.5-10.5) mg/dL Total Bilirubin (0.15-1.2) mg/dL AST (0-32) U/L ALT (0-33) U/L Alkaline Phosphata se (35-105) IU/L Total Protein (6.6-8.7) g/dL Albumin (3.5-5.2) g/dL Globulin (1.3-4.6) g/dL Lipase (13-60) U/L HCG, Qual (Negative) Urine Color Yellow (Yellow) Urine Appearance Clear (CLEAR) Urine pH 5 (5-7) Ur Specific Gravit y 1.020 (1.005-1.030) Urine Protein Neg (Negative) Urine Glucose (UA) Norm (Normal) Urine Ketones Negative (Negative) Urine Blood Neg (Negative) Urine Nitrate Negative (Negative) Urine Bilirubin Neg (NEGATIVE) Urine Urobilinogen Norm (Negative) mg/dL Ur Leukocyte Stephanie ase Negative (Negative) Discharge Plan Discharge Patient Disposition: Home Clinical Impression: Metabolic acidosis Gastric ulcer Qualifiers: Gastric ulcer chronicity: chronic Gastric ulcer complication status: without hemorrhage or perforation Qualified Code(s): K25.7 - Chronic gastric ulcer without hemorrhage or perforation Acute pancreatitis Qualifiers: Pancreatitis type: unspecified pancreatitis type Acute pancreatitis complication: no infection or necrosis Qualified Code(s): K85.90 - Acute pancreatitis without necrosis or infection, unspecified Condition: Stable Prescriptions: New hydrocodone-acetaminophen 5-325 mg tablet 1 tab PO Q6H PRN (Reason: pain) Qty: 10 RF: 0 Continued Ativan 1 mg tablet 1 mg PO Q8H PRN (Reason: prn nausea) Qty: 20 RF: 0 No Action citalopram [Celexa] 20 mg tablet 20 mg PO QAM Qty: 90 RF: 2 clonazepam [Klonopin] 0.5 mg tablet 0.5 mg PO TID Qty: 90 RF: 3 trazodone 150 mg tablet 150 mg PO BEDTIME PRN (Reason: sleep) Qty: 90 RF: 2 sucralfate 1 gram Tablet 1 g PO TID RF: 0 aspirin [Aspir-81] 81 mg Tablet,Delayed Release (Dr/Ec) 81 mg PO DAILY RF: 0 acetaminophen [Tylenol Extra Strength] 500 mg Tablet 500 - 1,000 mg PO PRN PRN (Reason: Pain) RF: 0 multivitamin [Multiple Vitamins] Tablet 1 tab PO DAILY RF: 0 metoprolol tartrate 25 mg Tablet 25 mg PO BID RF: 0 amlodipine 5 mg Tablet 5 mg PO DAILY RF: 0 Dexilant 60 mg capsule,biphase delayed releas 60 mg PO BID RF: 0 dicyclomine 20 mg tablet 20 mg PO QID Qty: 30 RF: 0 pantoprazole 40 mg Tablet,Delayed Release (Dr/Ec) 40 mg PO BID RF: 0 Discharge Orders: Discharge Order (Routine); Ordered 11/03/19 Ordered By: Hawa Alexandre Referrals: Rosi Shell, DEVELOPER RELATIONS MANAGER [Primary Care Provider] - Patient Instructions: Peptic Ulcer (ED), Pancreatitis (ED) Activity Restrictions/Additional Instructions: As discussed you need to follow-up with the GI specialist. Consume a liquid diet over the next 48 hours and advance as tolerated keeping a fairly bland diet. Return to the emergency department for worsening or uncontrollable pain, repetitive episodes of bloody vomit, any other concerns you may have. Stand Alone Forms: Work/School Release 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 of Care Code ED Glass Block Bender for Michaelag Fwd Exam Comprehensive
[2019-11-03 07:49] VITALS: BP 137/106; PULSE 116; RESP 18; TEMP 36.4; O2SAT 97; BMI 31.7
[2019-11-03] MEDS: sodium chloride 0.9% 1,000 ML 999 ML IV (08:29)
[2019-11-03] MEDS: haloperidol inj 5 mg/mL INJ 1 mL IVP (08:30)
[2019-11-03] MEDS: lidocaine 2% viscous 15 ML, aluminum-mag hydrox-simethicon 30 ML, sucralfate oral liq 1 GM PO (08:31)
[2019-11-03] MEDS: LORazepam 2 mg/mL INJ 1 mL 1 MG IVP (08:31)
[2019-11-03 08:58] LABS: Add Urine Microscopic? NO
[2019-11-03 08:59] LABS: Basophils # 0.1 10^3/uL (0.0-0.1); Basophils % 1.2 %; Eosinophils # 0.1 10^3/uL (0.0-0.8); Eosinophils % 1.6 %; Hematocrit 40.7 % (37.0-47.0); Hemoglobin 12.3 g/dL (11.5-15.3); Lymphocytes # 0.9 10^3/uL (0.8-4.8); Lymphocytes % 17.8 %; Mean Corpuscular HGB Conc 30.2 g/dL (30.0-36.0); Mean Corpuscular Hemoglobin 28.8 pg (28.0-34.0); Mean Corpuscular Volume 95.3 fL (81-99); Mean Platelet Volume 9.1 fL (7.4-10.4); Monocytes # 0.3 10^3/uL (0.2-0.9); Monocytes % 5.4 %; Neutrophils # 3.66 10^3/uL (1.8-7.7); Neutrophils % 73.4 %; Nucleated Red Blood Cells % 0 %; Platelet Count 291 10^3/cmm (130-400); Red Blood Count 4.27 10^6/uL (4.1-5.3)
[2019-11-03 09:18] LABS: Alanine Aminotransferase 15 U/L (0-33); Albumin Level 3.1 g/dL (3.5-5.2); Alkaline Phosphatase 152 IU/L (35-105); Aspartate Amino Transferase 24 U/L (0-32); Blood Urea Nitrogen 10 mg/dL (6-20); Calcium 8.9 mg/dL (8.5-10.5); Carbon Dioxide 16 mmol/L (22-29); Chloride 112 mmol/L (98-107); Creatinine Clr Calc Pharmacy 74.4537; Globulin 2.5 g/dL (1.3-4.6); Glucose 117 mg/dL (65-115); Lipase 199 U/L (13-60); Osmolality Calculated 287 mOsm/kg (285-295); Sodium 140 mmol/L (136-145); Total Bilirubin 0.2 mg/dL (0.15-1.2); Total Protein 5.6 g/dL (6.6-8.7)
[2019-11-03 09:19] LABS: Urine Color Yellow (Yellow)
[2019-11-03 09:20] LABS: Bilirubin Urine Neg (NEGATIVE); Blood Urine Neg (Negative); Glucose Urine UA Norm (Normal); Ketones Urine Negative (Negative); Leukocyte Esterase Urine Negative (Negative); Nitrate Urine Negative (Negative); Protein Urine Neg (Negative); Urine Appearance Clear (CLEAR); Urobilinogen Urine Norm (Negative); pH Urine 5 (5-7)
[2019-11-03 09:21] LABS: Anion Gap 15.5 (5-19); Potassium 3.5 mmol/L (3.5-5.1)
[2019-11-03 09:41] LABS: HCG, Serum Qual Negative (Negative)
[2019-11-03 10:00] VITALS: BP 156/106; PULSE 130; RESP 17; O2SAT 97
[2019-11-03] MEDS: diphenhydrAMINE 50 mg/mL SDV 1mL IVP (10:03)
[2019-11-03 10:06] VITALS: RESP 17; O2SAT 97
[2019-11-03] MEDS: morphine 4 mg/mL SDV 1 mL IVP (10:06)
[2019-11-03 10:23] VITALS: BP 142/96; PULSE 109; RESP 16; O2SAT 97
--- NOTE | 2019-11-03 10:24 | PC.NURSE ---
RT at bedside to perform ABG
[2019-11-03 10:29] LABS: ABG PCO2 28.4 mmHg (35-45); ABG PH Result 7.33 (7.35-7.45); Alveolar-Arterial Oxygen Gradi 2.7 mmHg (5-10); Arterial Blood Gas Hematocrit 36.1 % (37-47); Base Excess ABG -9.8 mmol/L (-2.0-2.0); Blood Gas Allen Test Pos; Blood Gas Operator Identificat CAK; Blood Gas Sample Site Radial, left; Blood Gas Sample Type Arterial; Carboxyhemoglobin 0.3 %THgb (0.4-20.1); HCO3 ABG 14.9 mmol/L (22-26); HGB O2 Sat 95.4 % (95-100); Ionized Calcium Level - ABG 1.2 mmol/L (1.1-1.4); Methemoglobin 1.4 % (0.4-1.5); Oxygen Device ROOM AIR; PO2 ABG 92.3 mmHg (80.0-100.0); Potassium Level - ABG 3.4 mmol/L (3.5-5.0); Total Hemoglobin 11.8 g/dL (12-16)
[2019-11-03 10:46] VITALS: BP 142/96; PULSE 109; RESP 16; O2SAT 97
--- NOTE | 2019-11-03 10:49 | PC.NURSE ---
Read and agree with assessment
== END 2019-11-03 10:40 | disposition home or self-care (01) ==
PROVIDERS: Emergency Provider Physician Assistant; PCP Nurse Practitioner Family
DX: E87.2 Acidosis (principal); K25.7 Chronic gastric ulcer without hemorrhage or perforation; K85.90 Acute pancreatitis without necrosis or infection, unspecified; Z79.82 Long term (current) use of aspirin; I10 Essential (primary) hypertension; Z87.891 Personal history of nicotine dependence
CPT/HCPCS: 12345; 80051; 80053; 81003; 82810; 83690; 83986; 84703; 85025; 96361; 96374; 96375; 99283; 99284; J0131; J1200; J1630; J2060; J2270; J7030

== ENCOUNTER 2019-11-05 10:46 | Inpatient (IN) | payer SELFPAY ==
[2019-11-05] VITALS (13 sets, daily range): BP systolic 121–154; BP diastolic 84–97; PULSE 78–134; RESP 16–22; TEMP 36.1–36.8; O2SAT 94–99; BMI 31.6
--- NOTE | 2019-11-05 11:50 | CT_ITS ---
WS: [id number] CT ABDOMEN AND PELVIS WITH CONTRAST HISTORY: Abdomen pain, elevated lipase TECHNIQUE: Imaging performed of the abdomen and pelvis with IV contrast. Single phase imaging of the abdomen. Coronal and sagittal reformats are submitted. All CT scans at [facility] use at least one of these dose optimization techniques: automated exposure control; mA and/or kV adjustment per patient size (includes targeted exams where dose is matched to clinical indication); or iterativ e reconstruction. IV CONTRAST: Omnipaque 300; 95 mL IV. Contrast essentially infiltrated. No intravascular contrast joan ntified. Oral contrast: No DLP: 930.56 mGy.cm COMPARISON: 10/14/2019 Lower thorax: Motion artifact at the lung bases. Heart is normal size. No hiatal hernia. Liver/biliary system: Moderate hepatic steatosis. No bile duct dilatation appreciated. Gallbladder: Status post cholecystectomy. Pancreas: Poorly visualized secondary motion. There is some mild peripancreatic inflammation which wa s not present on the prior study. Spleen: Normal. Adrenal glands: Normal. Right kidney: Normal. Left kidney: Normal. Aorta: Normal. Lymphadenopathy: Small shoddy retroperitoneal lymph nodes similar to the prior study. Subtle new lymp h nodes would be easily obscured with this amount of motion artifact. Free fluid: Small amount of free fluid in the pelvis. GI tract: Prior appendectomy. No GI tract obstruction. Numerous diverticula in the sigmoid colon. Abdominal wall: Unremarkable abdominal wall. No hernia. Pelvis: Small amount of free fluid layering in the pelvis. Urinary bladder is normal. Prior hysterect susan. Bones: Degenerative disc disease is mild at L5-S1. No osteoblastic or osteolytic disease. CT/CT abdomen pelvis w con* [id number] IMPRESSION: 1. Study is significantly limited by motion artifact. 2. Prior appendectomy and cholecystectomy. 3. Resume mild inflammation in the upper abdomen predominantly surrounding the pancreas along with splenic varices. Consider development of mild acute pancre atitis. 4. New small amount of free fluid in the pelvis.
--- NOTE | 2019-11-05 12:07 | W.ED.ABDPA2 ---
Documented by User: Sugar White 11/05/19 14:08 HPI - Abdominal Pain General: Chief Complaint: Abdominal Pain Stated Complaint: N/V Time Seen by Provider: 11/05/19 11:06 PFSH ED PFSH: Medical History Anastomotic ulcer S/P gastric bypass Chronic post-traumatic stress disorder Generalized anxiety disorder Hypertension Major depressive disorder, recurrent severe without psychotic features Vomiting blood Surgical History H/O esophagogastroduodenoscopy (~06/2019) H/O: hysterectomy History of partial gastrectomy Hx of cholecystectomy S/P appendectomy Family History Mother CAD (coronary artery disease) Other Hypertension Denies family history of Anesthesia complication Bleeding disorder Social History Smoking and tobacco status: former smoker Alcohol intake: never Adopted: No Caregiver/support person: Yes Lives independently: Yes Household members: family and children Housing: House Marital status: service: No Current occupational status: employed Current occupational exposures/hazards: No Pets and animals: No History of recent travel: No Sexually active: No Current gender identity: Female Teresa/Hoahaoism: Islam Special teresa needs: No Agree to transfusion: No Financial difficulty paying for basics: Decline to Answer Course Vital Signs: Vital signs: Vital Signs Temperature 97.5 F L 11/09/19 08:00 Pulse Rate 70 11/09/19 08:00 Respiratory Rate 18 11/09/19 08:00 Blood Pressure 125/89 11/09/19 08:00 Pulse Oximetry 97 11/09/19 08:00 MDM - Abdominal Pain Lab Data: Labs: Lab Results 11/05/19 11/05/19 11/05/19 Range/Units 11:59 12:30 12:30 WBC 6.4 (4.0-10.0) 10^3/ uL RBC 3.99 L (4.1-5.3) 10^6/u L Hgb 11.7 (11.5-15.3) g/dL Hct 37.2 (37.0-47.0) % MCV 93.2 (81-99) fL MCH 29.3 (28.0-34.0) pg MCHC 31.5 (30.0-36.0) g/dL RDW 16.4 H (12.1-15.1) % Plt Count 271 (130-400) 10^3/c mm MPV 8.6 (7.4-10.4) fL Neut % (Auto) 77.2 % Lymph % (Auto) 15.3 % Green % (Auto) 5.2 % Eos % (Auto) 1.4 % Baso % (Auto) 0.6 % Neut # (Auto) 4.91 (1.8-7.7) 10^3/u L Lymph # (Auto) 1.0 (0.8-4.8) 10^3/u L Green # (Auto) 0.3 (0.2-0.9) 10^3/u L Eos # (Auto) 0.1 (0.0-0.8) 10^3/u L Baso # (Auto) 0.0 (0.0-0.1) 10^3/u L Nucleated RBC % (a uto) 0 % Nucleated RBCs # 0.0 /100WBC Sodium 136 (136-145) mmol/L Potassium 3.2 L (3.5-5.1) mmol/L Chloride 108 H (98-107) mmol/L Carbon Dioxide 18 L (22-29) mmol/L Anion Gap 13.2 (5-19) BUN 7 (6-20) mg/dL Creatinine 0.8 (0.5-0.9) mg/dL GFR Calculation 77.6 L (90-130) mL/min Glucose 134 H (65-115) mg/dL Calculated Osmolal ity 280 L (285-295) mOsm/k g Calcium 8.0 L (8.5-10.5) mg/dL Total Bilirubin 0.2 (0.15-1.2) mg/dL AST 21 (0-32) U/L ALT 16 (0-33) U/L Alkaline Phosphata se 159 H (35-105) IU/L Troponin T Baselin e (0-10) ng/L Troponin T 120 Min [place] (0-10) ng/L Delta Troponin T (0-10) ABS# Troponin T Hi Sens 6Hr (0-10) ng/L Troponin T Hi Sens 6Hr Delta (0-12) ng/L Total Protein 5.2 L (6.6-8.7) g/dL Albumin 2.7 L (3.5-5.2) g/dL Globulin 2.5 (1.3-4.6) g/dL Triglycerides (0-150) mg/dL Cholesterol (0-200) mg/dL LDL Cholesterol, C alc (50-129) mg/dL HDL Cholesterol (60-100) mg/dL LDL/HDL Ratio (0.00-3.22) RATI O Cholesterol/HDL Ra julisa (0.0-4.40) mg/dL Urine Color Yellow (Yellow) Urine Appearance Clear (CLEAR) Urine pH 5 (5-7) Ur Specific Gravit y 1.020 (1.005-1.030) Urine Protein Neg (Negative) Urine Glucose (UA) Norm (Normal) Urine Ketones Negative (Negative) Urine Blood Neg (Negative) Urine Nitrate Negative (Negative) Urine Bilirubin Neg (NEGATIVE) Urine Urobilinogen Neg (Negative) mg/dL Ur Leukocyte Stephanie ase 2+ H (Negative) Urine RBC 0-4 H (0-2) /hpf Urine WBC 5-10 H (0-5) /hpf Ur Squamous Epith Cells 10-15 H (0-5) Amorphous Sediment Not Reportable Urine Bacteria 2+ H (NONE) Hyaline Casts 0-4 H Urine Mucus 1+ Nasal/Oral COVID-1 9 PCR SARS-CoV-2 Ag (Rap id) (Negative) 11/05/19 11/05/19 11/05/19 Range/Units 12:30 12:55 17:07 WBC (4.0-10.0) 10^3/ uL RBC (4.1-5.3) 10^6/u L Hgb (11.5-15.3) g/dL Hct (37.0-47.0) % MCV (81-99) fL MCH (28.0-34.0) pg MCHC (30.0-36.0) g/dL RDW (12.1-15.1) % Plt Count (130-400) 10^3/c mm MPV (7.4-10.4) fL Neut % (Auto) % Lymph % (Auto) % Green % (Auto) % Eos % (Auto) % Baso % (Auto) % Neut # (Auto) (1.8-7.7) 10^3/u L Lymph # (Auto) (0.8-4.8) 10^3/u L Green # (Auto) (0.2-0.9) 10^3/u L Eos # (Auto) (0.0-0.8) 10^3/u L Baso # (Auto) (0.0-0.1) 10^3/u L Nucleated RBC % (a uto) % Nucleated RBCs # /100WBC Sodium (136-145) mmol/L Potassium (3.5-5.1) mmol/L Chloride (98-107) mmol/L Carbon Dioxide (22-29) mmol/L Anion Gap (5-19) BUN (6-20) mg/dL Creatinine (0.5-0.9) mg/dL GFR Calculation (90-130) mL/min Glucose (65-115) mg/dL Calculated Osmolal ity (285-295) mOsm/k g Calcium (8.5-10.5) mg/dL Total Bilirubin (0.15-1.2) mg/dL AST (0-32) U/L ALT (0-33) U/L Alkaline Phosphata se (35-105) IU/L Troponin T Baselin e (0-10) ng/L Troponin T 120 Min [place] (0-10) ng/L Delta Troponin T (0-10) ABS# Troponin T Hi Sens 6Hr (0-10) ng/L Troponin T Hi Sens 6Hr Delta (0-12) ng/L Total Protein (6.6-8.7) g/dL Albumin (3.5-5.2) g/dL Globulin (1.3-4.6) g/dL Triglycerides 106 (0-150) mg/dL Cholesterol 85 (0-200) mg/dL LDL Cholesterol, C alc 31 L (50-129) mg/dL HDL Cholesterol 33 L (60-100) mg/dL LDL/HDL Ratio 0.94 (0.00-3.22) RATI O Cholesterol/HDL Ra julisa 2.58 (0.0-4.40) mg/dL Urine Color (Yellow) Urine Appearance (CLEAR) Urine pH (5-7) Ur Specific Gravit y (1.005-1.030) Urine Protein (Negative) Urine Glucose (UA) (Normal) Urine Ketones (Negative) Urine Blood (Negative) Urine Nitrate (Negative) Urine Bilirubin (NEGATIVE) Urine Urobilinogen (Negative) mg/dL Ur Leukocyte Stephanie ase (Negative) Urine RBC (0-2) /hpf Urine WBC (0-5) /hpf Ur Squamous Epith Cells (0-5) Amorphous Sediment Urine Bacteria (NONE) Hyaline Casts Urine Mucus Nasal/Oral COVID-1 9 PCR N SARS-CoV-2 Ag (Rap id) Negative (Negative) 11/05/19 11/05/19 11/06/19 Range/Units 20:45 22:49 03:00 WBC 5.4 (4.0-10.0) 10^3/ uL RBC 3.59 L (4.1-5.3) 10^6/u L Hgb 10.5 L (11.5-15.3) g/dL Hct 34.7 L (37.0-47.0) % MCV 96.7 (81-99) fL MCH 29.2 (28.0-34.0) pg MCHC 30.3 (30.0-36.0) g/dL RDW 17.0 H (12.1-15.1) % Plt Count 204 (130-400) 10^3/c mm MPV 8.8 (7.4-10.4) fL Neut % (Auto) 48.1 % Lymph % (Auto) 31.4 % Green % (Auto) 7.5 % Eos % (Auto) 12.1 % Baso % (Auto) 0.7 % Neut # (Auto) 2.57 (1.8-7.7) 10^3/u L Lymph # (Auto) 1.7 (0.8-4.8) 10^3/u L Green # (Auto) 0.4 (0.2-0.9) 10^3/u L Eos # (Auto) 0.7 (0.0-0.8) 10^3/u L Baso # (Auto) 0.0 (0.0-0.1) 10^3/u L Nucleated RBC % (a uto) 0 % Nucleated RBCs # 0.0 /100WBC Sodium (136-145) mmol/L Potassium (3.5-5.1) mmol/L Chloride (98-107) mmol/L Carbon Dioxide (22-29) mmol/L Anion Gap (5-19) BUN (6-20) mg/dL Creatinine (0.5-0.9) mg/dL GFR Calculation (90-130) mL/min Glucose (65-115) mg/dL Calculated Osmolal ity (285-295) mOsm/k g Calcium (8.5-10.5) mg/dL Total Bilirubin (0.15-1.2) mg/dL AST (0-32) U/L ALT (0-33) U/L Alkaline Phosphata se (35-105) IU/L Troponin T Baselin e 7 (0-10) ng/L Troponin T 120 Min [place] 10.03 H (0-10) ng/L Delta Troponin T 3.03 (0-10) ABS# Troponin T Hi Sens 6Hr (0-10) ng/L Troponin T Hi Sens 6Hr Delta (0-12) ng/L Total Protein (6.6-8.7) g/dL Albumin (3.5-5.2) g/dL Globulin (1.3-4.6) g/dL Triglycerides (0-150) mg/dL Cholesterol (0-200) mg/dL LDL Cholesterol, C alc (50-129) mg/dL HDL Cholesterol (60-100) mg/dL LDL/HDL Ratio (0.00-3.22) RATI O Cholesterol/HDL Ra julisa (0.0-4.40) mg/dL Urine Color (Yellow) Urine Appearance (CLEAR) Urine pH (5-7) Ur Specific Gravit y (1.005-1.030) Urine Protein (Negative) Urine Glucose (UA) (Normal) Urine Ketones (Negative) Urine Blood (Negative) Urine Nitrate (Negative) Urine Bilirubin (NEGATIVE) Urine Urobilinogen (Negative) mg/dL Ur Leukocyte Stephanie ase (Negative) Urine RBC (0-2) /hpf Urine WBC (0-5) /hpf Ur Squamous Epith Cells (0-5) Amorphous Sediment Urine Bacteria (NONE) Hyaline Casts Urine Mucus Nasal/Oral COVID-1 9 PCR SARS-CoV-2 Ag (Rap id) (Negative) 11/06/19 11/06/19 Range/Units 03:00 03:00 WBC (4.0-10.0) 10^3/ uL RBC (4.1-5.3) 10^6/u L Hgb (11.5-15.3) g/dL Hct (37.0-47.0) % MCV (81-99) fL MCH (28.0-34.0) pg MCHC (30.0-36.0) g/dL RDW (12.1-15.1) % Plt Count (130-400) 10^3/c mm MPV (7.4-10.4) fL Neut % (Auto) % Lymph % (Auto) % Green % (Auto) % Eos % (Auto) % Baso % (Auto) % Neut # (Auto) (1.8-7.7) 10^3/u L Lymph # (Auto) (0.8-4.8) 10^3/u L Green # (Auto) (0.2-0.9) 10^3/u L Eos # (Auto) (0.0-0.8) 10^3/u L Baso # (Auto) (0.0-0.1) 10^3/u L Nucleated RBC % (a uto) % Nucleated RBCs # /100WBC Sodium 140 (136-145) mmol/L Potassium 3.3 L (3.5-5.1) mmol/L Chloride 116 H (98-107) mmol/L Carbon Dioxide 18 L (22-29) mmol/L Anion Gap 9.3 (5-19) BUN 5 L (6-20) mg/dL Creatinine 0.7 (0.5-0.9) mg/dL GFR Calculation 90.5 (90-130) mL/min Glucose 89 (65-115) mg/dL Calculated Osmolal ity 285 (285-295) mOsm/k g Calcium 7.7 L (8.5-10.5) mg/dL Total Bilirubin 0.2 (0.15-1.2) mg/dL AST 22 (0-32) U/L ALT 15 (0-33) U/L Alkaline Phosphata se 142 H (35-105) IU/L Troponin T Baselin e (0-10) ng/L Troponin T 120 Min [place] (0-10) ng/L Delta Troponin T (0-10) ABS# Troponin T Hi Sens 6Hr 10.37 H (0-10) ng/L Troponin T Hi Sens 6Hr Delta 3.37 (0-12) ng/L Total Protein 4.1 L D (6.6-8.7) g/dL Albumin 2.1 L (3.5-5.2) g/dL Globulin 2.0 (1.3-4.6) g/dL Triglycerides (0-150) mg/dL Cholesterol (0-200) mg/dL LDL Cholesterol, C alc (50-129) mg/dL HDL Cholesterol (60-100) mg/dL LDL/HDL Ratio (0.00-3.22) RATI O Cholesterol/HDL Ra julisa (0.0-4.40) mg/dL Urine Color (Yellow) Urine Appearance (CLEAR) Urine pH (5-7) Ur Specific Gravit y (1.005-1.030) Urine Protein (Negative) Urine Glucose (UA) (Normal) Urine Ketones (Negative) Urine Blood (Negative) Urine Nitrate (Negative) Urine Bilirubin (NEGATIVE) Urine Urobilinogen (Negative) mg/dL Ur Leukocyte Stephanie ase (Negative) Urine RBC (0-2) /hpf Urine WBC (0-5) /hpf Ur Squamous Epith Cells (0-5) Amorphous Sediment Urine Bacteria (NONE) Hyaline Casts Urine Mucus Nasal/Oral COVID-1 9 PCR SARS-CoV-2 Ag (Rap id) (Negative) Discharge Plan Discharge Admit Provider: Priya Ruiz Clinical Impression: Acute pancreatitis Condition: Stable Discharge Date/Time: 11/05/19 18:06 Sign Out Sign Out Data: Patient Sign Out occurred on 11/05/19 at 15:27. Patient's care was discussed, and care was transferred from to Constantin Coley DO. 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 of Care Code ED Orthopedically Impaired Teacher for Chg Fwd Documented by User: Constantin Coley DO 11/09/19 09:23 HPI - Abdominal Pain General: Chief Complaint: Abdominal Pain Stated Complaint: N/V Time Seen by Provider: 11/05/19 11:06 [facility] PFSH: Medical History Anastomotic ulcer S/P gastric bypass Chronic post-traumatic stress disorder Generalized anxiety disorder Hypertension Major depressive disorder, recurrent severe without psychotic features Vomiting blood Surgical History H/O esophagogastroduodenoscopy (~06/2019) H/O: hysterectomy History of partial gastrectomy Hx of cholecystectomy S/P appendectomy Family History Mother CAD (coronary artery disease) Other Hypertension Denies family history of Anesthesia complication Bleeding disorder Social History Smoking and tobacco status: former smoker Alcohol intake: never Adopted: No Caregiver/support person: Yes Lives independently: Yes Household members: family and children Housing: House Marital status: service: No Current occupational status: employed Current occupational exposures/hazards: No Pets and animals: No History of recent travel: No Sexually active: No Current gender identity: Female Teresa/Hoahaoism: Islam Special teresa needs: No Agree to transfusion: No Financial difficulty paying for basics: Decline to Answer Course ED course: Duplicate chart on the same day unable to raise. See the other chart for the ER course. Vital Signs: Vital signs: Vital Signs Temperature 97.5 F L 11/09/19 08:00 Pulse Rate 70 11/09/19 08:00 Respiratory Rate 18 11/09/19 08:00 Blood Pressure 125/89 11/09/19 08:00 Pulse Oximetry 97 11/09/19 08:00 MDM - Abdominal Pain Lab Data: Labs: Lab Results 11/05/19 11/05/19 11/05/19 Range/Units 11:59 12:30 12:30 WBC 6.4 (4.0-10.0) 10^3/ uL RBC 3.99 L (4.1-5.3) 10^6/u L Hgb 11.7 (11.5-15.3) g/dL Hct 37.2 (37.0-47.0) % MCV 93.2 (81-99) fL MCH 29.3 (28.0-34.0) pg MCHC 31.5 (30.0-36.0) g/dL RDW 16.4 H (12.1-15.1) % Plt Count 271 (130-400) 10^3/c mm MPV 8.6 (7.4-10.4) fL Neut % (Auto) 77.2 % Lymph % (Auto) 15.3 % Green % (Auto) 5.2 % Eos % (Auto) 1.4 % Baso % (Auto) 0.6 % Neut # (Auto) 4.91 (1.8-7.7) 10^3/u L Lymph # (Auto) 1.0 (0.8-4.8) 10^3/u L Green # (Auto) 0.3 (0.2-0.9) 10^3/u L Eos # (Auto) 0.1 (0.0-0.8) 10^3/u L Baso # (Auto) 0.0 (0.0-0.1) 10^3/u L Nucleated RBC % (a uto) 0 % Nucleated RBCs # 0.0 /100WBC Sodium 136 (136-145) mmol/L Potassium 3.2 L (3.5-5.1) mmol/L Chloride 108 H (98-107) mmol/L Carbon Dioxide 18 L (22-29) mmol/L Anion Gap 13.2 (5-19) BUN 7 (6-20) mg/dL Creatinine 0.8 (0.5-0.9) mg/dL GFR Calculation 77.6 L (90-130) mL/min Glucose 134 H (65-115) mg/dL Calculated Osmolal ity 280 L (285-295) mOsm/k g Calcium 8.0 L (8.5-10.5) mg/dL Total Bilirubin 0.2 (0.15-1.2) mg/dL AST 21 (0-32) U/L ALT 16 (0-33) U/L Alkaline Phosphata se 159 H (35-105) IU/L Troponin T Baselin e (0-10) ng/L Troponin T 120 Min [place] (0-10) ng/L Delta Troponin T (0-10) ABS# Troponin T Hi Sens 6Hr (0-10) ng/L Troponin T Hi Sens 6Hr Delta (0-12) ng/L Total Protein 5.2 L (6.6-8.7) g/dL Albumin 2.7 L (3.5-5.2) g/dL Globulin 2.5 (1.3-4.6) g/dL Triglycerides (0-150) mg/dL Cholesterol (0-200) mg/dL LDL Cholesterol, C alc (50-129) mg/dL HDL Cholesterol (60-100) mg/dL LDL/HDL Ratio (0.00-3.22) RATI O Cholesterol/HDL Ra julisa (0.0-4.40) mg/dL Urine Color Yellow (Yellow) Urine Appearance Clear (CLEAR) Urine pH 5 (5-7) Ur Specific Gravit y 1.020 (1.005-1.030) Urine Protein Neg (Negative) Urine Glucose (UA) Norm (Normal) Urine Ketones Negative (Negative) Urine Blood Neg (Negative) Urine Nitrate Negative (Negative) Urine Bilirubin Neg (NEGATIVE) Urine Urobilinogen Neg (Negative) mg/dL Ur Leukocyte Stephanie ase 2+ H (Negative) Urine RBC 0-4 H (0-2) /hpf Urine WBC 5-10 H (0-5) /hpf Ur Squamous Epith Cells 10-15 H (0-5) Amorphous Sediment Not Reportable Urine Bacteria 2+ H (NONE) Hyaline Casts 0-4 H Urine Mucus 1+ Nasal/Oral COVID-1 9 PCR SARS-CoV-2 Ag (Rap id) (Negative) 11/05/19 11/05/19 11/05/19 Range/Units 12:30 12:55 17:07 WBC (4.0-10.0) 10^3/ uL RBC (4.1-5.3) 10^6/u L Hgb (11.5-15.3) g/dL Hct (37.0-47.0) % MCV (81-99) fL MCH (28.0-34.0) pg MCHC (30.0-36.0) g/dL RDW (12.1-15.1) % Plt Count (130-400) 10^3/c mm MPV (7.4-10.4) fL Neut % (Auto) % Lymph % (Auto) % Green % (Auto) % Eos % (Auto) % Baso % (Auto) % Neut # (Auto) (1.8-7.7) 10^3/u L Lymph # (Auto) (0.8-4.8) 10^3/u L Green # (Auto) (0.2-0.9) 10^3/u L Eos # (Auto) (0.0-0.8) 10^3/u L Baso # (Auto) (0.0-0.1) 10^3/u L Nucleated RBC % (a uto) % Nucleated RBCs # /100WBC Sodium (136-145) mmol/L Potassium (3.5-5.1) mmol/L Chloride (98-107) mmol/L Carbon Dioxide (22-29) mmol/L Anion Gap (5-19) BUN (6-20) mg/dL Creatinine (0.5-0.9) mg/dL GFR Calculation (90-130) mL/min Glucose (65-115) mg/dL Calculated Osmolal ity (285-295) mOsm/k g Calcium (8.5-10.5) mg/dL Total Bilirubin (0.15-1.2) mg/dL AST (0-32) U/L ALT (0-33) U/L Alkaline Phosphata se (35-105) IU/L Troponin T Baselin e (0-10) ng/L Troponin T 120 Min [place] (0-10) ng/L Delta Troponin T (0-10) ABS# Troponin T Hi Sens 6Hr (0-10) ng/L Troponin T Hi Sens 6Hr Delta (0-12) ng/L Total Protein (6.6-8.7) g/dL Albumin (3.5-5.2) g/dL Globulin (1.3-4.6) g/dL Triglycerides 106 (0-150) mg/dL Cholesterol 85 (0-200) mg/dL LDL Cholesterol, C alc 31 L (50-129) mg/dL HDL Cholesterol 33 L (60-100) mg/dL LDL/HDL Ratio 0.94 (0.00-3.22) RATI O Cholesterol/HDL Ra julisa 2.58 (0.0-4.40) mg/dL Urine Color (Yellow) Urine Appearance (CLEAR) Urine pH (5-7) Ur Specific Gravit y (1.005-1.030) Urine Protein (Negative) Urine Glucose (UA) (Normal) Urine Ketones (Negative) Urine Blood (Negative) Urine Nitrate (Negative) Urine Bilirubin (NEGATIVE) Urine Urobilinogen (Negative) mg/dL Ur Leukocyte Stephanie ase (Negative) Urine RBC (0-2) /hpf Urine WBC (0-5) /hpf Ur Squamous Epith Cells (0-5) Amorphous Sediment Urine Bacteria (NONE) Hyaline Casts Urine Mucus Nasal/Oral COVID-1 9 PCR N SARS-CoV-2 Ag (Rap id) Negative (Negative) 11/05/19 11/05/19 11/06/19 Range/Units 20:45 22:49 03:00 WBC 5.4 (4.0-10.0) 10^3/ uL RBC 3.59 L (4.1-5.3) 10^6/u L Hgb 10.5 L (11.5-15.3) g/dL Hct 34.7 L (37.0-47.0) % MCV 96.7 (81-99) fL MCH 29.2 (28.0-34.0) pg MCHC 30.3 (30.0-36.0) g/dL RDW 17.0 H (12.1-15.1) % Plt Count 204 (130-400) 10^3/c mm MPV 8.8 (7.4-10.4) fL Neut % (Auto) 48.1 % Lymph % (Auto) 31.4 % Green % (Auto) 7.5 % Eos % (Auto) 12.1 % Baso % (Auto) 0.7 % Neut # (Auto) 2.57 (1.8-7.7) 10^3/u L Lymph # (Auto) 1.7 (0.8-4.8) 10^3/u L Green # (Auto) 0.4 (0.2-0.9) 10^3/u L Eos # (Auto) 0.7 (0.0-0.8) 10^3/u L Baso # (Auto) 0.0 (0.0-0.1) 10^3/u L Nucleated RBC % (a uto) 0 % Nucleated RBCs # 0.0 /100WBC Sodium (136-145) mmol/L Potassium (3.5-5.1) mmol/L Chloride (98-107) mmol/L Carbon Dioxide (22-29) mmol/L Anion Gap (5-19) BUN (6-20) mg/dL Creatinine (0.5-0.9) mg/dL GFR Calculation (90-130) mL/min Glucose (65-115) mg/dL Calculated Osmolal ity (285-295) mOsm/k g Calcium (8.5-10.5) mg/dL Total Bilirubin (0.15-1.2) mg/dL AST (0-32) U/L ALT (0-33) U/L Alkaline Phosphata se (35-105) IU/L Troponin T Baselin e 7 (0-10) ng/L Troponin T 120 Min [place] 10.03 H (0-10) ng/L Delta Troponin T 3.03 (0-10) ABS# Troponin T Hi Sens 6Hr (0-10) ng/L Troponin T Hi Sens 6Hr Delta (0-12) ng/L Total Protein (6.6-8.7) g/dL Albumin (3.5-5.2) g/dL Globulin (1.3-4.6) g/dL Triglycerides (0-150) mg/dL Cholesterol (0-200) mg/dL LDL Cholesterol, C alc (50-129) mg/dL HDL Cholesterol (60-100) mg/dL LDL/HDL Ratio (0.00-3.22) RATI O Cholesterol/HDL Ra julisa (0.0-4.40) mg/dL Urine Color (Yellow) Urine Appearance (CLEAR) Urine pH (5-7) Ur Specific Gravit y (1.005-1.030) Urine Protein (Negative) Urine Glucose (UA) (Normal) Urine Ketones (Negative) Urine Blood (Negative) Urine Nitrate (Negative) Urine Bilirubin (NEGATIVE) Urine Urobilinogen (Negative) mg/dL Ur Leukocyte Stephanie ase (Negative) Urine RBC (0-2) /hpf Urine WBC (0-5) /hpf Ur Squamous Epith Cells (0-5) Amorphous Sediment Urine Bacteria (NONE) Hyaline Casts Urine Mucus Nasal/Oral COVID-1 9 PCR SARS-CoV-2 Ag (Rap id) (Negative) 11/06/19 11/06/19 Range/Units 03:00 03:00 WBC (4.0-10.0) 10^3/ uL RBC (4.1-5.3) 10^6/u L Hgb (11.5-15.3) g/dL Hct (37.0-47.0) % MCV (81-99) fL MCH (28.0-34.0) pg MCHC (30.0-36.0) g/dL RDW (12.1-15.1) % Plt Count (130-400) 10^3/c mm MPV (7.4-10.4) fL Neut % (Auto) % Lymph % (Auto) % Green % (Auto) % Eos % (Auto) % Baso % (Auto) % Neut # (Auto) (1.8-7.7) 10^3/u L Lymph # (Auto) (0.8-4.8) 10^3/u L Green # (Auto) (0.2-0.9) 10^3/u L Eos # (Auto) (0.0-0.8) 10^3/u L Baso # (Auto) (0.0-0.1) 10^3/u L Nucleated RBC % (a uto) % Nucleated RBCs # /100WBC Sodium 140 (136-145) mmol/L Potassium 3.3 L (3.5-5.1) mmol/L Chloride 116 H (98-107) mmol/L Carbon Dioxide 18 L (22-29) mmol/L Anion Gap 9.3 (5-19) BUN 5 L (6-20) mg/dL Creatinine 0.7 (0.5-0.9) mg/dL GFR Calculation 90.5 (90-130) mL/min Glucose 89 (65-115) mg/dL Calculated Osmolal ity 285 (285-295) mOsm/k g Calcium 7.7 L (8.5-10.5) mg/dL Total Bilirubin 0.2 (0.15-1.2) mg/dL AST 22 (0-32) U/L ALT 15 (0-33) U/L Alkaline Phosphata se 142 H (35-105) IU/L Troponin T Baselin e (0-10) ng/L Troponin T 120 Min [place] (0-10) ng/L Delta Troponin T (0-10) ABS# Troponin T Hi Sens 6Hr 10.37 H (0-10) ng/L Troponin T Hi Sens 6Hr Delta 3.37 (0-12) ng/L Total Protein 4.1 L D (6.6-8.7) g/dL Albumin 2.1 L (3.5-5.2) g/dL Globulin 2.0 (1.3-4.6) g/dL Triglycerides (0-150) mg/dL Cholesterol (0-200) mg/dL LDL Cholesterol, C alc (50-129) mg/dL HDL Cholesterol (60-100) mg/dL LDL/HDL Ratio (0.00-3.22) RATI O Cholesterol/HDL Ra julisa (0.0-4.40) mg/dL Urine Color (Yellow) Urine Appearance (CLEAR) Urine pH (5-7) Ur Specific Gravit y (1.005-1.030) Urine Protein (Negative) Urine Glucose (UA) (Normal) Urine Ketones (Negative) Urine Blood (Negative) Urine Nitrate (Negative) Urine Bilirubin (NEGATIVE) Urine Urobilinogen (Negative) mg/dL Ur Leukocyte Stephanie ase (Negative) Urine RBC (0-2) /hpf Urine WBC (0-5) /hpf Ur Squamous Epith Cells (0-5) Amorphous Sediment Urine Bacteria (NONE) Hyaline Casts Urine Mucus Nasal/Oral COVID-1 9 PCR SARS-CoV-2 Ag (Rap id) (Negative) Discharge Plan Discharge Admit Provider: Priya Ruiz Clinical Impression: Acute pancreatitis Condition: Stable Discharge Date/Time: 11/05/19 18:06 Sign Out Sign Out Data: Patient Sign Out occurred on 11/05/19 at 15:27. Patient's care was discussed, and care was transferred from to Constantin Coley DO. 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 of Care Code ED Orthopedically Impaired Teacher for Kimberly Gilman
[2019-11-05] MEDS: iohexol 300 mg/mL 50 mL Btl PO (12:28)
[2019-11-05 12:39] LABS: Urine Appearance Clear (CLEAR); Urine Color Yellow (Yellow)
[2019-11-05 12:40] LABS: Add Urine Microscopic? YES; Bilirubin Urine Neg (NEGATIVE); Blood Urine Neg (Negative); Glucose Urine UA Norm (Normal); Ketones Urine Negative (Negative); Leukocyte Esterase Urine 2+ (Negative); Nitrate Urine Negative (Negative); Protein Urine Neg (Negative); Urobilinogen Urine Neg (Negative); pH Urine 5 (5-7)
[2019-11-05 12:49] LABS: Add Urine Culture? No; Bacteria Urine 2+; Hyaline Casts Urine 0-4; Mucus Urine 1+; RBC Urine 0-4 /hpf (0-2)
[2019-11-05 12:50] LABS: Basophils % 0.6 %; Eosinophils # 0.1 10^3/uL (0.0-0.8); Eosinophils % 1.4 %; Hematocrit 37.2 % (37.0-47.0); Hemoglobin 11.7 g/dL (11.5-15.3); Lymphocytes % 15.3 %; Mean Corpuscular HGB Conc 31.5 g/dL (30.0-36.0); Mean Corpuscular Hemoglobin 29.3 pg (28.0-34.0); Mean Corpuscular Volume 93.2 fL (81-99); Mean Platelet Volume 8.6 fL (7.4-10.4); Monocytes # 0.3 10^3/uL (0.2-0.9); Monocytes % 5.2 %; Neutrophils # 4.91 10^3/uL (1.8-7.7); Neutrophils % 77.2 %; Nucleated Red Blood Cells % 0 %; Platelet Count 271 10^3/cmm (130-400); Red Blood Count 3.99 10^6/uL (4.1-5.3); Red Cell Distribution Width 16.4 % (12.1-15.1); White Blood Count 6.4 10^3/uL (4.0-10.0)
[2019-11-05] MEDS: diphenhydrAMINE 50 mg/mL SDV 1mL IVP (12:58)
[2019-11-05] MEDS: morphine 4 mg/mL SDV 1 mL IVP ×2 (12:58→14:19)
[2019-11-05] MEDS: sodium chloride 0.9% 500 ML 250 ML IV ×3 (12:59→17:09)
[2019-11-05 13:08] LABS: Alanine Aminotransferase 16 U/L (0-33); Albumin Level 2.7 g/dL (3.5-5.2); Alkaline Phosphatase 159 IU/L (35-105); Anion Gap 13.2 (5-19); Aspartate Amino Transferase 21 U/L (0-32); Blood Urea Nitrogen 7 mg/dL (6-20); Carbon Dioxide 18 mmol/L (22-29); Chloride 108 mmol/L (98-107); Globulin 2.5 g/dL (1.3-4.6); Glomerular Filtration Rate 77.6 mL/min (90-130); Glucose 134 mg/dL (65-115); Osmolality Calculated 280 mOsm/kg (285-295); Potassium 3.2 mmol/L (3.5-5.1); Sodium 136 mmol/L (136-145); Total Bilirubin 0.2 mg/dL (0.15-1.2); Total Protein 5.2 g/dL (6.6-8.7)
[2019-11-05] MEDS: iohexol 300 mg/mL 100 mL Btl IV (13:42)
--- NOTE | 2019-11-05 14:08 | ED_ITS ---
Documented by User: Sugar White 11/05/19 15:03 HPI - Abdominal Pain General: Chief Complaint: Abdominal Pain Stated Complaint: N/V Time Seen by Provider: 11/05/19 11:06 Source: patient Mode of arrival: ambulatory Limitations: no limitations History of Present Illness: HPI narrative: states severe abdominal pain increasing x 3 days; NVD Review of Systems General: Reports: 10 or more systems reviewed and unremarkable except in HPI and below PFSH ED PFSH: Medical History Anastomotic ulcer S/P gastric bypass Chronic post-traumatic stress disorder Generalized anxiety disorder Hypertension Major depressive disorder, recurrent severe without psychotic features Vomiting blood Surgical History H/O esophagogastroduodenoscopy (~06/2019) H/O: hysterectomy History of partial gastrectomy Hx of cholecystectomy S/P appendectomy Family History Mother CAD (coronary artery disease) Other Hypertension Denies family history of Anesthesia complication Bleeding disorder Social History Smoking and tobacco status: former smoker Alcohol intake: never Adopted: No Caregiver/support person: Yes Lives independently: Yes Household members: family and children Housing: House Marital status: service: No Current occupational status: employed Current occupational exposures/hazards: No Pets and animals: No History of recent travel: No Sexually active: No Current gender identity: Female Teresa/Faith: Caodaism Special teresa needs: No Agree to transfusion: No Financial difficulty paying for basics: Decline to Answer Physical Exam Const: COMMON NORMALS: no acute distress, patient oriented x3, no limitations and alert GENERAL APPEARANCE: cooperative and comfortable ORIENTATION/CONSCIOUSNESS: Yes awake, Yes oriented to person, Yes oriented to place and Yes oriented to time HENMT: COMMON NORMALS: normocephalic, atraumatic, external ears normal, EAC's normal, TM's normal bilaterally and Normal external nose present HEAD & SCALP: normal to inspection, normocephalic and atraumatic FACE & SINUS: normal facial exam, sinuses nontender and face symmetric NOSE: Normal external nose present, Normal nares present and No nasal discharge present EXTERNAL EAR: Yes external ears normal EXTERNAL AUDITORY CANAL: EAC's normal TYMPANIC MEMBRANE: TM's normal bilaterally MOUTH: Normal oral and palatal mucosa present, lip normal and tongue normal THROAT: posterior oropharynx normal, tonsils normal and uvula midline Eye: COMMON NORMALS: Equal, round and reactive pupils present, EOMs intact bilaterally and conjunctivae normal GENERAL EYE: appearance normal, both eyes and all related structures and normal light reflex EYELID: eyelids normal CONJUNCTIVA: Yes conjunctivae normal PUPIL: Yes Equal, round and reactive pupils present EOM: Yes EOM abnormal DIRECT OPHTHALMOSCOPY: Yes normal light reflex Neck/C-Spine: COMMON NORMALS: full ROM, no lymphadenopathy, supple, no meningeal signs, no JVD and Thyroid normal GENERAL: Yes normal visual inspection THYROID: Thyroid normal CERVICAL SPINE: Yes cervical ROM normal and Yes normal cervical lordosis Lymph: LYMPHATIC: no lymphadenopathy noted Chest: COMMONS NORMALS: normal inspection of the chest and normal palpation of entire chest wall Resp: COMMON NORMALS: normal respiratory effort, No retractions and clear to auscultation bilaterally AUSCULTATION: clear to auscultation bilaterally Cardio: COMMON NORMALS: no JVD, regular rate, regular rhythm, S1 normal heart sound present, S2 normal heart sound present, No gallops present (Cardio), No clicks present (Cardio), No murmurs present (Cardio), No rub (Cardio) and Peripheral pulses 2+ throughout RATE: regular rate RHYTHM: regular rhythm HEART SOUNDS: S1 normal heart sound present and S2 normal heart sound present PERIPHERAL PULSES: Peripheral pulses 2+ throughout GI: COMMON NORMALS: Normal to inspection, nondistended, normoactive bowel sounds present, Soft to palpation, non-tender and no masses PALPATION: Yes Soft to palpation, Yes Tenderness to palpation present (GI) (diffuse), No Splenomegaly present, No Palpable mass present and No Ascites present : COMMON NORMALS: Yes no CVA tenderness and Yes normal external appearance BLADDER/KIDNEY EXAM: Yes no CVA tenderness Back/Pelvis: COMMON NORMALS: no CVA tenderness, thoracic and lumbar spine normal to inspection, no thoracic nor lumbar tenderness and thoraco-lumbar ROM normal Extremity: COMMON NORMALS: normal to inspection, full ROM, capillary refill normal, no joint enlargement, no clubbing, cyanosis or edema, no calf tenderness and no pedal edema GENERAL: Yes normal exam except as noted Neuro: COMMON NORMALS: patient oriented x3, moves all extremities, no focal motor deficits, no sensory deficits noted and gait normal SENSORIUM/ORIENTATION: Yes alert, Yes oriented to person, Yes oriented to place and Yes oriented to time MENINGEAL SIGNS: Yes no meningeal signs Psych: COMMON NORMALS: mental status grossly normal, Normal thought process present, cooperative, normal affect, speech normal and activity/motor behavior normal SPEECH: Yes normal speech THOUGHT PROCESS: Normal thought process present Skin: COMMON NORMALS: no rashes or lesions noted, no wounds and turgor normal GENERAL SKIN EXAM: no rashes or lesions noted and turgor normal Course ED course: Pt presents with complaints of NVD and sever abdominal pain. She has a hx of intractible vomiting and was seen three days ago for similar complaints. No fever noted. Labs ordered. Reevaluation(s): Reevaluation #1: Pt labs reveal chronic malnourishment from her bypass surgery. These are consistent with previous findings. CT contrast ordered; awaiting results. Time: 14:10 Reevaluation #2: CT discussed with Dr. Coley. Pt will need to likely be admitted. Thomas started as well. Time: 15:03 Vital Signs: Vital signs: Vital Signs Temperature 98.6 F 11/08/19 16:00 Pulse Rate 69 11/08/19 16:00 Respiratory Rate 18 11/08/19 16:00 Blood Pressure 126/80 11/08/19 16:00 Pulse Oximetry 98 11/08/19 16:00 MDM - Abdominal Pain Lab Data: Labs: Lab Results 11/05/19 11/05/19 11/05/19 Range/Units 11:59 12:30 12:30 WBC 6.4 (4.0-10.0) 10^3/ uL RBC 3.99 L (4.1-5.3) 10^6/u L Hgb 11.7 (11.5-15.3) g/dL Hct 37.2 (37.0-47.0) % MCV 93.2 (81-99) fL MCH 29.3 (28.0-34.0) pg MCHC 31.5 (30.0-36.0) g/dL RDW 16.4 H (12.1-15.1) % Plt Count 271 (130-400) 10^3/c mm MPV 8.6 (7.4-10.4) fL Neut % (Auto) 77.2 % Lymph % (Auto) 15.3 % Ceiba % (Auto) 5.2 % Eos % (Auto) 1.4 % Baso % (Auto) 0.6 % Neut # (Auto) 4.91 (1.8-7.7) 10^3/u L Lymph # (Auto) 1.0 (0.8-4.8) 10^3/u L Ceiba # (Auto) 0.3 (0.2-0.9) 10^3/u L Eos # (Auto) 0.1 (0.0-0.8) 10^3/u L Baso # (Auto) 0.0 (0.0-0.1) 10^3/u L Nucleated RBC % (a uto) 0 % Nucleated RBCs # 0.0 /100WBC Sodium 136 (136-145) mmol/L Potassium 3.2 L (3.5-5.1) mmol/L Chloride 108 H (98-107) mmol/L Carbon Dioxide 18 L (22-29) mmol/L Anion Gap 13.2 (5-19) BUN 7 (6-20) mg/dL Creatinine 0.8 (0.5-0.9) mg/dL GFR Calculation 77.6 L (90-130) mL/min Glucose 134 H (65-115) mg/dL Calculated Osmolal ity 280 L (285-295) mOsm/k g Calcium 8.0 L (8.5-10.5) mg/dL Total Bilirubin 0.2 (0.15-1.2) mg/dL AST 21 (0-32) U/L ALT 16 (0-33) U/L Alkaline Phosphata se 159 H (35-105) IU/L Troponin T Baselin e (0-10) ng/L Troponin T 120 Min [place] (0-10) ng/L Delta Troponin T (0-10) ABS# Troponin T Hi Sens 6Hr (0-10) ng/L Troponin T Hi Sens 6Hr Delta (0-12) ng/L Total Protein 5.2 L (6.6-8.7) g/dL Albumin 2.7 L (3.5-5.2) g/dL Globulin 2.5 (1.3-4.6) g/dL Triglycerides (0-150) mg/dL Cholesterol (0-200) mg/dL LDL Cholesterol, C alc (50-129) mg/dL HDL Cholesterol (60-100) mg/dL LDL/HDL Ratio (0.00-3.22) RATI O Cholesterol/HDL Ra julisa (0.0-4.40) mg/dL Urine Color Yellow (Yellow) Urine Appearance Clear (CLEAR) Urine pH 5 (5-7) Ur Specific Gravit y 1.020 (1.005-1.030) Urine Protein Neg (Negative) Urine Glucose (UA) Norm (Normal) Urine Ketones Negative (Negative) Urine Blood Neg (Negative) Urine Nitrate Negative (Negative) Urine Bilirubin Neg (NEGATIVE) Urine Urobilinogen Neg (Negative) mg/dL Ur Leukocyte Stephanie ase 2+ H (Negative) Urine RBC 0-4 H (0-2) /hpf Urine WBC 5-10 H (0-5) /hpf Ur Squamous Epith Cells 10-15 H (0-5) Amorphous Sediment Not Reportable Urine Bacteria 2+ H (NONE) Hyaline Casts 0-4 H Urine Mucus 1+ Nasal/Oral COVID-1 9 PCR SARS-CoV-2 Ag (Rap id) (Negative) 11/05/19 11/05/19 11/05/19 Range/Units 12:30 12:55 17:07 WBC (4.0-10.0) 10^3/ uL RBC (4.1-5.3) 10^6/u L Hgb (11.5-15.3) g/dL Hct (37.0-47.0) % MCV (81-99) fL MCH (28.0-34.0) pg MCHC (30.0-36.0) g/dL RDW (12.1-15.1) % Plt Count (130-400) 10^3/c mm MPV (7.4-10.4) fL Neut % (Auto) % Lymph % (Auto) % [place]iba % (Auto) % Eos % (Auto) % Baso % (Auto) % Neut # (Auto) (1.8-7.7) 10^3/u L Lymph # (Auto) (0.8-4.8) 10^3/u L Ceiba # (Auto) (0.2-0.9) 10^3/u L Eos # (Auto) (0.0-0.8) 10^3/u L Baso # (Auto) (0.0-0.1) 10^3/u L Nucleated RBC % (a uto) % Nucleated RBCs # /100WBC Sodium (136-145) mmol/L Potassium (3.5-5.1) mmol/L Chloride (98-107) mmol/L Carbon Dioxide (22-29) mmol/L Anion Gap (5-19) BUN (6-20) mg/dL Creatinine (0.5-0.9) mg/dL GFR Calculation (90-130) mL/min Glucose (65-115) mg/dL Calculated Osmolal ity (285-295) mOsm/k g Calcium (8.5-10.5) mg/dL Total Bilirubin (0.15-1.2) mg/dL AST (0-32) U/L ALT (0-33) U/L Alkaline Phosphata se (35-105) IU/L Troponin T Baselin e (0-10) ng/L Troponin T 120 Min [place] (0-10) ng/L Delta Troponin T (0-10) ABS# Troponin T Hi Sens 6Hr (0-10) ng/L Troponin T Hi Sens 6Hr Delta (0-12) ng/L Total Protein (6.6-8.7) g/dL Albumin (3.5-5.2) g/dL Globulin (1.3-4.6) g/dL Triglycerides 106 (0-150) mg/dL Cholesterol 85 (0-200) mg/dL LDL Cholesterol, C alc 31 L (50-129) mg/dL HDL Cholesterol 33 L (60-100) mg/dL LDL/HDL Ratio 0.94 (0.00-3.22) RATI O Cholesterol/HDL Ra julisa 2.58 (0.0-4.40) mg/dL Urine Color (Yellow) Urine Appearance (CLEAR) Urine pH (5-7) Ur Specific Gravit y (1.005-1.030) Urine Protein (Negative) Urine Glucose (UA) (Normal) Urine Ketones (Negative) Urine Blood (Negative) Urine Nitrate (Negative) Urine Bilirubin (NEGATIVE) Urine Urobilinogen (Negative) mg/dL Ur Leukocyte Stephanie ase (Negative) Urine RBC (0-2) /hpf Urine WBC (0-5) /hpf Ur Squamous Epith Cells (0-5) Amorphous Sediment Urine Bacteria (NONE) Hyaline Casts Urine Mucus Nasal/Oral COVID-1 9 PCR N SARS-CoV-2 Ag (Rap id) Negative (Negative) 11/05/19 11/05/19 11/06/19 Range/Units 20:45 22:49 03:00 WBC 5.4 (4.0-10.0) 10^3/ uL RBC 3.59 L (4.1-5.3) 10^6/u L Hgb 10.5 L (11.5-15.3) g/dL Hct 34.7 L (37.0-47.0) % MCV 96.7 (81-99) fL MCH 29.2 (28.0-34.0) pg MCHC 30.3 (30.0-36.0) g/dL RDW 17.0 H (12.1-15.1) % Plt Count 204 (130-400) 10^3/c mm MPV 8.8 (7.4-10.4) fL Neut % (Auto) 48.1 % Lymph % (Auto) 31.4 % [place] % (Auto) 7.5 % Eos % (Auto) 12.1 % Baso % (Auto) 0.7 % Neut # (Auto) 2.57 (1.8-7.7) 10^3/u L Lymph # (Auto) 1.7 (0.8-4.8) 10^3/u L [place] # (Auto) 0.4 (0.2-0.9) 10^3/u L Eos # (Auto) 0.7 (0.0-0.8) 10^3/u L Baso # (Auto) 0.0 (0.0-0.1) 10^3/u L Nucleated RBC % (a uto) 0 % Nucleated RBCs # 0.0 /100WBC Sodium (136-145) mmol/L Potassium (3.5-5.1) mmol/L Chloride (98-107) mmol/L Carbon Dioxide (22-29) mmol/L Anion Gap (5-19) BUN (6-20) mg/dL Creatinine (0.5-0.9) mg/dL GFR Calculation (90-130) mL/min Glucose (65-115) mg/dL Calculated Osmolal ity (285-295) mOsm/k g Calcium (8.5-10.5) mg/dL Total Bilirubin (0.15-1.2) mg/dL AST (0-32) U/L ALT (0-33) U/L Alkaline Phosphata se (35-105) IU/L Troponin T Baselin e 7 (0-10) ng/L Troponin T 120 Min [place] 10.03 H (0-10) ng/L Delta Troponin T 3.03 (0-10) ABS# Troponin T Hi Sens 6Hr (0-10) ng/L Troponin T Hi Sens 6Hr Delta (0-12) ng/L Total Protein (6.6-8.7) g/dL Albumin (3.5-5.2) g/dL Globulin (1.3-4.6) g/dL Triglycerides (0-150) mg/dL Cholesterol (0-200) mg/dL LDL Cholesterol, C alc (50-129) mg/dL HDL Cholesterol (60-100) mg/dL LDL/HDL Ratio (0.00-3.22) RATI O Cholesterol/HDL Ra julisa (0.0-4.40) mg/dL Urine Color (Yellow) Urine Appearance (CLEAR) Urine pH (5-7) Ur Specific Gravit y (1.005-1.030) Urine Protein (Negative) Urine Glucose (UA) (Normal) Urine Ketones (Negative) Urine Blood (Negative) Urine Nitrate (Negative) Urine Bilirubin (NEGATIVE) Urine Urobilinogen (Negative) mg/dL Ur Leukocyte Stephanie ase (Negative) Urine RBC (0-2) /hpf Urine WBC (0-5) /hpf Ur Squamous Epith Cells (0-5) Amorphous Sediment Urine Bacteria (NONE) Hyaline Casts Urine Mucus Nasal/Oral COVID-1 9 PCR SARS-CoV-2 Ag (Rap id) (Negative) 11/06/19 11/06/19 Range/Units 03:00 03:00 WBC (4.0-10.0) 10^3/ uL RBC (4.1-5.3) 10^6/u L Hgb (11.5-15.3) g/dL Hct (37.0-47.0) % MCV (81-99) fL MCH (28.0-34.0) pg MCHC (30.0-36.0) g/dL RDW (12.1-15.1) % Plt Count (130-400) 10^3/c mm MPV (7.4-10.4) fL Neut % (Auto) % Lymph % (Auto) % [place] % (Auto) % Eos % (Auto) % Baso % (Auto) % Neut # (Auto) (1.8-7.7) 10^3/u L Lymph # (Auto) (0.8-4.8) 10^3/u L [place] # (Auto) (0.2-0.9) 10^3/u L Eos # (Auto) (0.0-0.8) 10^3/u L Baso # (Auto) (0.0-0.1) 10^3/u L Nucleated RBC % (a uto) % Nucleated RBCs # /100WBC Sodium 140 (136-145) mmol/L Potassium 3.3 L (3.5-5.1) mmol/L Chloride 116 H (98-107) mmol/L Carbon Dioxide 18 L (22-29) mmol/L Anion Gap 9.3 (5-19) BUN 5 L (6-20) mg/dL Creatinine 0.7 (0.5-0.9) mg/dL GFR Calculation 90.5 (90-130) mL/min Glucose 89 (65-115) mg/dL Calculated Osmolal ity 285 (285-295) mOsm/k g Calcium 7.7 L (8.5-10.5) mg/dL Total Bilirubin 0.2 (0.15-1.2) mg/dL AST 22 (0-32) U/L ALT 15 (0-33) U/L Alkaline Phosphata se 142 H (35-105) IU/L Troponin T Baselin e (0-10) ng/L Troponin T 120 Min [place] (0-10) ng/L Delta Troponin T (0-10) ABS# Troponin T Hi Sens 6Hr 10.37 H (0-10) ng/L Troponin T Hi Sens 6Hr Delta 3.37 (0-12) ng/L Total Protein 4.1 L D (6.6-8.7) g/dL Albumin 2.1 L (3.5-5.2) g/dL Globulin 2.0 (1.3-4.6) g/dL Triglycerides (0-150) mg/dL Cholesterol (0-200) mg/dL LDL Cholesterol, C alc (50-129) mg/dL HDL Cholesterol (60-100) mg/dL LDL/HDL Ratio (0.00-3.22) RATI O Cholesterol/HDL Ra julisa (0.0-4.40) mg/dL Urine Color (Yellow) Urine Appearance (CLEAR) Urine pH (5-7) Ur Specific Gravit y (1.005-1.030) Urine Protein (Negative) Urine Glucose (UA) (Normal) Urine Ketones (Negative) Urine Blood (Negative) Urine Nitrate (Negative) Urine Bilirubin (NEGATIVE) Urine Urobilinogen (Negative) mg/dL Ur Leukocyte Stephanie ase (Negative) Urine RBC (0-2) /hpf Urine WBC (0-5) /hpf Ur Squamous Epith Cells (0-5) Amorphous Sediment Urine Bacteria (NONE) Hyaline Casts Urine Mucus Nasal/Oral COVID-1 9 PCR SARS-CoV-2 Ag (Rap id) (Negative) Imaging Data ^: Other CT: Radiologist's impression: [address] [address] CT Scan Report Signed Patient: Therese Schaefer Unit #: [id number] : [id number] Age/Sex: 43 / F ADM Date: 11/05/19 Loc: ER Room/Bed: Attending Dr: Ordering Provider/Ordering MD: Sugar White NP Date of Service: 11/05/19 Procedure(s): CT abdomen pelvis w con* [id number] Accession Number(s): [id number] Report Number: [id number] WS: [id number] CT ABDOMEN AND PELVIS WITH CONTRAST HISTORY: Abdomen pain, elevated lipase TECHNIQUE: Imaging performed of the abdomen and pelvis with IV contrast. Single phase imaging of the abdomen. Coronal and sagittal reformats are submitted. All CT scans at [facility] use at least one of these dose optimization techniques: automated exposure control; mA and/or kV adjustment per patient size (includes targeted exams where dose is matched to clinical indication); or iterative reconstruction. IV CONTRAST: Omnipaque 300; 95 mL IV. Contrast essentially infiltrated. No intravascular contrast identified. Oral contrast: No DLP: 930.56 mGy.cm COMPARISON: 10/14/2019 Lower thorax: Motion artifact at the lung bases. Heart is normal size. No hiatal hernia. Liver/biliary system: Moderate hepatic steatosis. No bile duct dilatation appreciated. Gallbladder: Status post cholecystectomy. Pancreas: Poorly visualized secondary motion. There is some mild peripancreatic inflammation which was not present on the prior study. Spleen: Normal. Adrenal glands: Normal. Right kidney: Normal. Left kidney: Normal. Aorta: Normal. Lymphadenopathy: Small shoddy retroperitoneal lymph nodes similar to the prior study. Subtle new lymph nodes would be easily obscured with this amount of motion artifact. Free fluid: Small amount of free fluid in the pelvis. GI tract: Prior appendectomy. No GI tract obstruction. Numerous diverticula in the sigmoid colon. Abdominal wall: Unremarkable abdominal wall. No hernia. Pelvis: Small amount of free fluid layering in the pelvis. Urinary bladder is normal. Prior hysterectomy. Bones: Degenerative disc disease is mild at L5-S1. No osteoblastic or osteolytic disease. CT/CT abdomen pelvis w con* [id number] IMPRESSION: 1. Study is significantly limited by motion artifact. 2. Prior appendectomy and cholecystectomy. 3. Resume mild inflammation in the upper abdomen predominantly surrounding the pancreas along with splenic varices. Consider development of mild acute pancreatitis. 4. New small amount of free fluid in the pelvis. Dictated By: Melissa Willis DO Signed By: Melissa Willis DO Signed Date/Time: 11/05/19 1423 DD/ 1416 Discharge Plan Discharge Admit Provider: Priya Ruiz Clinical Impression: Acute pancreatitis Condition: Stable Interventions: ED Discharge Assessment Last Done: 11/05/19 18:05 ED Charges Last Done: 11/05/19 18:05 Discharge Date/Time: 11/05/19 18:06 Sign Out Sign Out Data: Patient Sign Out occurred on 11/05/19 at 15:27. Patient's care was discussed, and care was transferred from to Constantin Coley DO. 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 of Care Code ED Animal Eviscerator for Chg Fwd Exam Comprehensive Documented by User: Constantin Coley DO 11/08/19 17:44 HPI - Abdominal Pain General: Chief Complaint: Abdominal Pain Stated Complaint: N/V Time Seen by Provider: 11/05/19 11:06 History of Present Illness: HPI narrative: 43-year-old female frequency emergency room on a regular basis this time she has left upper quadrant pain. She is initially seen by the PA see her work-up above. She has had significant nausea vomiting abdominal pain which is typical for her. She not had any fever no upper respiratory symptoms MD elicited complaint: abdominal pain Pertinent past history: other (Diabetic gastroparesis) Onset (ago): day(s) Pain Consistency: constant Location: Diffuse Severity: severe Quality: cramping Radiation: none Exacerbating factors: nothing Relieving factors: nothing Associated Symptoms: Reports bloating, GI cramping, loose stools, nausea and poor appetite; Denies coffee ground emesis, constipation, diarrhea, dyspepsia, dysuria, ex cessive flatus, fever(s), heartburn, hematemesis, fecal incontinence, melena and vomiting Review of Systems Const: Denies: fever(s) ENMT: Denies: throat pain, ear or mastoid pain, nasal discharge or nasal congestion Card: Denies: chest pain, edema, dyspnea on exertion or orthopnea Resp: Denies: dyspnea, productive cough or non-productive cough GI: Reports: nausea, bloating and GI cramping; Denies: vomiting, hematemesis, coffee ground emesis, heartburn, diarrhea, constipation, excessive flatus, fecal incontinence or melena : Denies: dysuria Skin/Breast: Denies: rash or pruritus PFSH ED PFSH: Medical History Anastomotic ulcer S/P gastric bypass Chronic post-traumatic stress disorder Generalized anxiety disorder Hypertension Major depressive disorder, recurrent severe without psychotic features Vomiting blood Surgical History H/O esophagogastroduodenoscopy (~06/2019) H/O: hysterectomy History of partial gastrectomy Hx of cholecystectomy S/P appendectomy Family History Mother CAD (coronary artery disease) Other Hypertension Denies family history of Anesthesia complication Bleeding disorder Social History Smoking and tobacco status: former smoker Alcohol intake: never Adopted: No Caregiver/support person: Yes Lives independently: Yes Household members: family and children Housing: House Marital status: service: No Current occupational status: employed Current occupational exposures/hazards: No Pets and animals: No History of recent travel: No Sexually active: No Current gender identity: Female Teresa/Faith: Caodaism Special teresa needs: No Agree to transfusion: No Financial difficulty paying for basics: Decline to Answer Physical Exam Const: COMMON NORMALS: no acute distress GENERAL APPEARANCE: cooperative and comfortable ORIENTATION/CONSCIOUSNESS: Yes awake, Yes oriented to person, Yes oriented to place and Yes oriented to time HENMT: COMMON NORMALS: normocephalic and atraumatic HEAD & SCALP: normocephalic and atraumatic Eye: COMMON NORMALS: Equal, round and reactive pupils present, EOMs intact bilaterally, conjunctivae normal and no scleral icterus CONJUNCTIVA: Yes conjunctivae normal PUPIL: Yes Equal, round and reactive pupils present Neck/C-Spine: COMMON NORMALS: full ROM, no lymphadenopathy, supple and no JVD Lymph: LYMPHATIC: no lymphadenopathy noted and no lymphedema noted Resp: COMMON NORMALS: normal respiratory effort, No retractions, No use of accessory muscles and clear to auscultation bilaterally AUSCULTATION: clear to auscultation bilaterally Cardio: COMMON NORMALS: no JVD, regular rate, regular rhythm and No murmurs present (Cardio) RATE: regular rate RHYTHM: regular rhythm GI: COMMON NORMALS: No hepatosplenomegaly present AUSCULTATION: Yes normoactive bowel sounds PALPATION: Yes Tenderness to palpation present (GI) (Epigastric and left upper quadrant), No Guarding due to palpation present (GI), No Rigid due to palpation and Yes No hepatosplenomegaly present Extremity: COMMON NORMALS: normal to inspection, capillary refill normal, no clubbing, cyanosis or edema, no calf tenderness and no pedal edema Neuro: SENSORIUM/ORIENTATION: Yes oriented to person, Yes oriented to place and Yes oriented to time Skin: COMMON NORMALS: no rashes or lesions noted GENERAL SKIN EXAM: no rashes or lesions noted Course Vital Signs: Vital signs: Vital Signs Temperature 98.6 F 11/08/19 16:00 Pulse Rate 69 11/08/19 16:00 Respiratory Rate 18 11/08/19 16:00 Blood Pressure 126/80 11/08/19 16:00 Pulse Oximetry 98 11/08/19 16:00 MDM - Abdominal Pain MDM Narrative: Medical decision making narrative: Reviewed the case with the midlevel. She does have acute pancreatitis. We will go ahead and admit reviewed the case as well with Dr. Ruiz she will accept the patient to [facility] we are waiting to get a COVID result back at this point. Lab Data: Labs: Lab Results 11/05/19 11/05/19 11/05/19 Range/Units 11:59 12:30 12:30 WBC 6.4 (4.0-10.0) 10^3/ uL RBC 3.99 L (4.1-5.3) 10^6/u L Hgb 11.7 (11.5-15.3) g/dL Hct 37.2 (37.0-47.0) % MCV 93.2 (81-99) fL MCH 29.3 (28.0-34.0) pg MCHC 31.5 (30.0-36.0) g/dL RDW 16.4 H (12.1-15.1) % Plt Count 271 (130-400) 10^3/c mm MPV 8.6 (7.4-10.4) fL Neut % (Auto) 77.2 % Lymph % (Auto) 15.3 % [place] % (Auto) 5.2 % Eos % (Auto) 1.4 % Baso % (Auto) 0.6 % Neut # (Auto) 4.91 (1.8-7.7) 10^3/u L Lymph # (Auto) 1.0 (0.8-4.8) 10^3/u L Ceiba # (Auto) 0.3 (0.2-0.9) 10^3/u L Eos # (Auto) 0.1 (0.0-0.8) 10^3/u L Baso # (Auto) 0.0 (0.0-0.1) 10^3/u L Nucleated RBC % (a uto) 0 % Nucleated RBCs # 0.0 /100WBC Sodium 136 (136-145) mmol/L Potassium 3.2 L (3.5-5.1) mmol/L Chloride 108 H (98-107) mmol/L Carbon Dioxide 18 L (22-29) mmol/L Anion Gap 13.2 (5-19) BUN 7 (6-20) mg/dL Creatinine 0.8 (0.5-0.9) mg/dL GFR Calculation 77.6 L (90-130) mL/min Glucose 134 H (65-115) mg/dL Calculated Osmolal ity 280 L (285-295) mOsm/k g Calcium 8.0 L (8.5-10.5) mg/dL Total Bilirubin 0.2 (0.15-1.2) mg/dL AST 21 (0-32) U/L ALT 16 (0-33) U/L Alkaline Phosphata se 159 H (35-105) IU/L Troponin T Baselin e (0-10) ng/L Troponin T 120 Min [place] (0-10) ng/L Delta Troponin T (0-10) ABS# Troponin T Hi Sens 6Hr (0-10) ng/L Troponin T Hi Sens 6Hr Delta (0-12) ng/L Total Protein 5.2 L (6.6-8.7) g/dL Albumin 2.7 L (3.5-5.2) g/dL Globulin 2.5 (1.3-4.6) g/dL Triglycerides (0-150) mg/dL Cholesterol (0-200) mg/dL LDL Cholesterol, C alc (50-129) mg/dL HDL Cholesterol (60-100) mg/dL LDL/HDL Ratio (0.00-3.22) RATI O Cholesterol/HDL Ra julisa (0.0-4.40) mg/dL Urine Color Yellow (Yellow) Urine Appearance Clear (CLEAR) Urine pH 5 (5-7) Ur Specific Gravit y 1.020 (1.005-1.030) Urine Protein Neg (Negative) Urine Glucose (UA) Norm (Normal) Urine Ketones Negative (Negative) Urine Blood Neg (Negative) Urine Nitrate Negative (Negative) Urine Bilirubin Neg (NEGATIVE) Urine Urobilinogen Neg (Negative) mg/dL Ur Leukocyte Stephanie ase 2+ H (Negative) Urine RBC 0-4 H (0-2) /hpf Urine WBC 5-10 H (0-5) /hpf Ur Squamous Epith Cells 10-15 H (0-5) Amorphous Sediment Not Reportable Urine Bacteria 2+ H (NONE) Hyaline Casts 0-4 H Urine Mucus 1+ Nasal/Oral COVID-1 9 PCR SARS-CoV-2 Ag (Rap id) (Negative) 11/05/19 11/05/19 11/05/19 Range/Units 12:30 12:55 17:07 WBC (4.0-10.0) 10^3/ uL RBC (4.1-5.3) 10^6/u L Hgb (11.5-15.3) g/dL Hct (37.0-47.0) % MCV (81-99) fL MCH (28.0-34.0) pg MCHC (30.0-36.0) g/dL RDW (12.1-15.1) % Plt Count (130-400) 10^3/c mm MPV (7.4-10.4) fL Neut % (Auto) % Lymph % (Auto) % Ceiba % (Auto) % Eos % (Auto) % Baso % (Auto) % Neut # (Auto) (1.8-7.7) 10^3/u L Lymph # (Auto) (0.8-4.8) 10^3/u L Ceiba # (Auto) (0.2-0.9) 10^3/u L Eos # (Auto) (0.0-0.8) 10^3/u L Baso # (Auto) (0.0-0.1) 10^3/u L Nucleated RBC % (a uto) % Nucleated RBCs # /100WBC Sodium (136-145) mmol/L Potassium (3.5-5.1) mmol/L Chloride (98-107) mmol/L Carbon Dioxide (22-29) mmol/L Anion Gap (5-19) BUN (6-20) mg/dL Creatinine (0.5-0.9) mg/dL GFR Calculation (90-130) mL/min Glucose (65-115) mg/dL Calculated Osmolal ity (285-295) mOsm/k g Calcium (8.5-10.5) mg/dL Total Bilirubin (0.15-1.2) mg/dL AST (0-32) U/L ALT (0-33) U/L Alkaline Phosphata se (35-105) IU/L Troponin T Baselin e (0-10) ng/L Troponin T 120 Min [place] (0-10) ng/L Delta Troponin T (0-10) ABS# Troponin T Hi Sens 6Hr (0-10) ng/L Troponin T Hi Sens 6Hr Delta (0-12) ng/L Total Protein (6.6-8.7) g/dL Albumin (3.5-5.2) g/dL Globulin (1.3-4.6) g/dL Triglycerides 106 (0-150) mg/dL Cholesterol 85 (0-200) mg/dL LDL Cholesterol, C alc 31 L (50-129) mg/dL HDL Cholesterol 33 L (60-100) mg/dL LDL/HDL Ratio 0.94 (0.00-3.22) RATI O Cholesterol/HDL Ra julisa 2.58 (0.0-4.40) mg/dL Urine Color (Yellow) Urine Appearance (CLEAR) Urine pH (5-7) Ur Specific Gravit y (1.005-1.030) Urine Protein (Negative) Urine Glucose (UA) (Normal) Urine Ketones (Negative) Urine Blood (Negative) Urine Nitrate (Negative) Urine Bilirubin (NEGATIVE) Urine Urobilinogen (Negative) mg/dL Ur Leukocyte Stephanie ase (Negative) Urine RBC (0-2) /hpf Urine WBC (0-5) /hpf Ur Squamous Epith Cells (0-5) Amorphous Sediment Urine Bacteria (NONE) Hyaline Casts Urine Mucus Nasal/Oral COVID-1 9 PCR N SARS-CoV-2 Ag (Rap id) Negative (Negative) 11/05/19 11/05/19 11/06/19 Range/Units 20:45 22:49 03:00 WBC 5.4 (4.0-10.0) 10^3/ uL RBC 3.59 L (4.1-5.3) 10^6/u L Hgb 10.5 L (11.5-15.3) g/dL Hct 34.7 L (37.0-47.0) % MCV 96.7 (81-99) fL MCH 29.2 (28.0-34.0) pg MCHC 30.3 (30.0-36.0) g/dL RDW 17.0 H (12.1-15.1) % Plt Count 204 (130-400) 10^3/c mm MPV 8.8 (7.4-10.4) fL Neut % (Auto) 48.1 % Lymph % (Auto) 31.4 % Ceiba % (Auto) 7.5 % Eos % (Auto) 12.1 % Baso % (Auto) 0.7 % Neut # (Auto) 2.57 (1.8-7.7) 10^3/u L Lymph # (Auto) 1.7 (0.8-4.8) 10^3/u L Ceiba # (Auto) 0.4 (0.2-0.9) 10^3/u L Eos # (Auto) 0.7 (0.0-0.8) 10^3/u L Baso # (Auto) 0.0 (0.0-0.1) 10^3/u L Nucleated RBC % (a uto) 0 % Nucleated RBCs # 0.0 /100WBC Sodium (136-145) mmol/L Potassium (3.5-5.1) mmol/L Chloride (98-107) mmol/L Carbon Dioxide (22-29) mmol/L Anion Gap (5-19) BUN (6-20) mg/dL Creatinine (0.5-0.9) mg/dL GFR Calculation (90-130) mL/min Glucose (65-115) mg/dL Calculated Osmolal ity (285-295) mOsm/k g Calcium (8.5-10.5) mg/dL Total Bilirubin (0.15-1.2) mg/dL AST (0-32) U/L ALT (0-33) U/L Alkaline Phosphata se (35-105) IU/L Troponin T Baselin e 7 (0-10) ng/L Troponin T 120 Min [place] 10.03 H (0-10) ng/L Delta Troponin T 3.03 (0-10) ABS# Troponin T Hi Sens 6Hr (0-10) ng/L Troponin T Hi Sens 6Hr Delta (0-12) ng/L Total Protein (6.6-8.7) g/dL Albumin (3.5-5.2) g/dL Globulin (1.3-4.6) g/dL Triglycerides (0-150) mg/dL Cholesterol (0-200) mg/dL LDL Cholesterol, C alc (50-129) mg/dL HDL Cholesterol (60-100) mg/dL LDL/HDL Ratio (0.00-3.22) RATI O Cholesterol/HDL Ra julisa (0.0-4.40) mg/dL Urine Color (Yellow) Urine Appearance (CLEAR) Urine pH (5-7) Ur Specific Gravit y (1.005-1.030) Urine Protein (Negative) Urine Glucose (UA) (Normal) Urine Ketones (Negative) Urine Blood (Negative) Urine Nitrate (Negative) Urine Bilirubin (NEGATIVE) Urine Urobilinogen (Negative) mg/dL Ur Leukocyte Stephanie ase (Negative) Urine RBC (0-2) /hpf Urine WBC (0-5) /hpf Ur Squamous Epith Cells (0-5) Amorphous Sediment Urine Bacteria (NONE) Hyaline Casts Urine Mucus Nasal/Oral COVID-1 9 PCR SARS-CoV-2 Ag (Rap id) (Negative) 11/06/19 11/06/19 Range/Units 03:00 03:00 WBC (4.0-10.0) 10^3/ uL RBC (4.1-5.3) 10^6/u L Hgb (11.5-15.3) g/dL Hct (37.0-47.0) % MCV (81-99) fL MCH (28.0-34.0) pg MCHC (30.0-36.0) g/dL RDW (12.1-15.1) % Plt Count (130-400) 10^3/c mm MPV (7.4-10.4) fL Neut % (Auto) % Lymph % (Auto) % [place] % (Auto) % Eos % (Auto) % Baso % (Auto) % Neut # (Auto) (1.8-7.7) 10^3/u L Lymph # (Auto) (0.8-4.8) 10^3/u L [place] # (Auto) (0.2-0.9) 10^3/u L Eos # (Auto) (0.0-0.8) 10^3/u L Baso # (Auto) (0.0-0.1) 10^3/u L Nucleated RBC % (a uto) % Nucleated RBCs # /100WBC Sodium 140 (136-145) mmol/L Potassium 3.3 L (3.5-5.1) mmol/L Chloride 116 H (98-107) mmol/L Carbon Dioxide 18 L (22-29) mmol/L Anion Gap 9.3 (5-19) BUN 5 L (6-20) mg/dL Creatinine 0.7 (0.5-0.9) mg/dL GFR Calculation 90.5 (90-130) mL/min Glucose 89 (65-115) mg/dL Calculated Osmolal ity 285 (285-295) mOsm/k g Calcium 7.7 L (8.5-10.5) mg/dL Total Bilirubin 0.2 (0.15-1.2) mg/dL AST 22 (0-32) U/L ALT 15 (0-33) U/L Alkaline Phosphata se 142 H (35-105) IU/L Troponin T Baselin e (0-10) ng/L Troponin T 120 Min [place] (0-10) ng/L Delta Troponin T (0-10) ABS# Troponin T Hi Sens 6Hr 10.37 H (0-10) ng/L Troponin T Hi Sens 6Hr Delta 3.37 (0-12) ng/L Total Protein 4.1 L D (6.6-8.7) g/dL Albumin 2.1 L (3.5-5.2) g/dL Globulin 2.0 (1.3-4.6) g/dL Triglycerides (0-150) mg/dL Cholesterol (0-200) mg/dL LDL Cholesterol, C alc (50-129) mg/dL HDL Cholesterol (60-100) mg/dL LDL/HDL Ratio (0.00-3.22) RATI O Cholesterol/HDL Ra julisa (0.0-4.40) mg/dL Urine Color (Yellow) Urine Appearance (CLEAR) Urine pH (5-7) Ur Specific Gravit y (1.005-1.030) Urine Protein (Negative) Urine Glucose (UA) (Normal) Urine Ketones (Negative) Urine Blood (Negative) Urine Nitrate (Negative) Urine Bilirubin (NEGATIVE) Urine Urobilinogen (Negative) mg/dL Ur Leukocyte Stephanie ase (Negative) Urine RBC (0-2) /hpf Urine WBC (0-5) /hpf Ur Squamous Epith Cells (0-5) Amorphous Sediment Urine Bacteria (NONE) Hyaline Casts Urine Mucus Nasal/Oral COVID-1 9 PCR SARS-CoV-2 Ag (Rap id) (Negative) Discharge Plan Discharge Admit Provider: Priya Ruiz Clinical Impression: Acute pancreatitis Condition: Stable Interventions: ED Discharge Assessment Last Done: 11/05/19 18:05 ED Charges Last Done: 11/05/19 18:05 Discharge Date/Time: 11/05/19 18:06 Sign Out Sign Out Data: Patient Sign Out occurred on 11/05/19 at 15:27. Patient's care was discussed, and care was transferred from to Constantin Coley DO. 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 of Care Code ED Animal Eviscerator for Kimberly Fwd Exam Comprehensive
[2019-11-05] MEDS: cefTRIAXone 1,000 MG in sodium chloride 0.9% (plus) 50 ML 100 MG IV (14:46)
[2019-11-05] MEDS: LORazepam 2 mg/mL INJ 1 mL IVP (14:46)
[2019-11-05] MEDS: haloperidol inj 5 mg/mL INJ 1 mL IVP (14:46)
[2019-11-05] MEDS: morphine 4 mg/mL SDV 1 mL 2 MG IVP (15:51)
[2019-11-05] MEDS: piperacillin-tazobactam 3.375 GM in sodium chloride 0.9% (plus) 50 ML IV (15:51)
--- NOTE | 2019-11-05 16:15 | PM.HP ---
Providers/Chief Complaint Admitting Physician: Priya Ruiz MD Primary Care Provider: Rosi Shell NP Chief Complaint: N/V History of Present Illness Therese Schaefer is a 43 year old female with PMH recurrent pancreatitis, HTN, s/p multiple recent admissions prsenting with abdominal pain, nausea and vomiting that feels similar to prior episodes. No diarrhea at this time. Review of Systems General: Reports: 10 or more systems reviewed and unremarkable except in HPI and below Const: Denies: fever(s), chills or body aches Eyes: Denies: change in vision, blurry vision or photophobia ENMT: Reports: hoarseness; Denies: throat pain, enlarged tonsils, odynophagia or nasal congestion Card: Denies: chest pain, palpitations, irregular heart rhythm, edema, swelling of feet/ankles, lightheadedness, pre-syncope, dyspnea on exertion or orthopnea Resp: Denies: dyspnea, productive cough, non-productive cough, wheezing, stridor, pain on inspiration, change in phlegm color, hemoptysis or chest congestion GI: Denies: abdominal pain, nausea, vomiting, hematemesis, coffee ground emesis, dysphagia, heartburn, diarrhea, constipation, GI cramping, change in stool character, hematochezia or melena : Denies: flank pain, difficulty voiding, dysuria, urinary frequency, urinary urgency, urinary hesitancy or hematuria Musc: Denies: neck pain, back pain, extremity pain, joint swelling, joint warmth or deformity Neuro: Denies: headache(s), numbness in extremities, weakness in extremities, sensory changes, difficulty walking, frequent falls, dizziness, vertigo, behavioral changes, Slurred speech present or seizure-like activity Psych: Denies: anxiety, depression, suicidal ideation or homicidal ideation Endo: Denies: polyuria, polydipsia, tired all the time, cold intolerance or hot flashes Gomez/Lymph: Denies: easy bruising or easy bleeding Medications/Allergies Home Medications Medication Instructions Recorded Confirmed Last Taken Type sucralfate 1 g PO TID 06/21/19 11/05/19 11/04/19 History acetaminophen [Tylenol Extra 500 - 1,000 mg PO PRN PRN 07/10/19 11/05/19 11/02/19 History Strength] aspirin [Aspir-81] 81 mg PO DAILY 07/10/19 11/05/19 11/04/19 History metoprolol tartrate 25 mg PO BID 09/05/19 11/05/19 11/04/19 History multivitamin [Multiple Vitamins] 1 tab PO DAILY 09/05/19 11/05/19 11/04/19 History citalopram 20 mg tablet 20 mg PO QAM #90 tab 09/13/19 11/05/19 11/04/19 Rx clonazepam 0.5 mg tablet 0.5 mg PO TID #90 tab 09/13/19 11/05/19 11/04/19 Rx trazodone 150 mg tablet 150 mg PO BEDTIME PRN #90 tab 09/13/19 11/05/19 11/04/19 Rx Dexilant 60 mg PO BID 10/14/19 11/05/19 11/04/19 History amlodipine 5 mg PO DAILY 10/14/19 11/05/19 11/04/19 History dicyclomine 20 mg PO QID #30 tab 10/14/19 11/05/19 11/04/19 Rx lorazepam [Ativan] 1 mg PO Q8H PRN #20 tab 11/03/19 11/05/19 11/04/19 Rx pantoprazole 40 mg PO BID 11/03/19 11/05/19 11/04/19 History Allergies Allergy/AdvReac Type Severity Reaction Status Date / Time baclofen Allergy Unknown Unknown Verified 11/05/19 11:02 codeine Allergy Unknown rash Verified 11/05/19 11:02 ondansetron [From Zofran] Allergy Unknown ALGY-Anaphy Verified 11/05/19 11:02 laxis prochlorperazine Allergy Unknown Unknown Verified 11/05/19 11:02 [From Compazine] promethazine [From Phenergan] Allergy Unknown Unknown Verified 11/05/19 15:51 metoclopramide [From Reglan] Allergy ALGY-Hives Verified 11/05/19 11:02 PFSH Acute PFSH: Medical History Anastomotic ulcer S/P gastric bypass Chronic post-traumatic stress disorder Generalized anxiety disorder Hypertension Major depressive disorder, recurrent severe without psychotic features Vomiting blood Surgical History H/O esophagogastroduodenoscopy (~06/2019) H/O: hysterectomy History of partial gastrectomy Hx of cholecystectomy S/P appendectomy Family History Mother CAD (coronary artery disease) Other Hypertension Denies family history of Anesthesia complication Bleeding disorder Social History Smoking and tobacco status: former smoker Alcohol intake: never Adopted: No Caregiver/support person: Yes Lives independently: Yes Household members: family and children Housing: House Marital status: service: No Current occupational status: employed Current occupational exposures/hazards: No Pets and animals: No History of recent travel: No Sexually active: No Current gender identity: Female Teresa/Evangelical: Yarsanism Special teresa needs: No Agree to transfusion: No Financial difficulty paying for basics: Decline to Answer Vitals/I&O/Wt Last Vital Signs Temp 98.2 F 11/05/19 11:03 Pulse 103 H 11/05/19 15:52 Resp 22 H 11/05/19 15:52 BP 134/92 11/05/19 15:52 Pulse Ox 97 11/05/19 15:52 11/05/19 11/05/19 11/05/19 06:59 14:59 22:59 Intake Total 945.833 / 945.833 Balance 945.833 / 945.833 Weight last 48 hrs Weight 83.461 kg Physical Exam Narrative: EXAM NARRATIVE: GEN: Awake, alert and oriented, no acute distress CVS: S1S2 N RS: CTA B/L Abd: Soft, nt/nd , bs+ TEMPORARY OFFICE ASSISTANT: no focal neuro deficits Data : 11/05/19 12:30 11/05/19 12:30 A&P Assessment and plan (1) Acute pancreatitis: Status: Acute Qualifiers: Acute pancreatitis complication: no infection or necrosis Pancreatitis type: unspecified pancreatitis type Qualified Code(s): K85.90 - Acute pancreatitis without necrosis or infection, unspecified (2) Gastric ulcer: Status: Acute Qualifiers: Gastric ulcer chronicity: chronic Gastric ulcer complication status: without hemorrhage or perforation Qualified Code(s): K25.7 - Chronic gastric ulcer without hemorrhage or perforation Additional A&P Information Acute on chronic pancreatitis Admit to observation Pain control with dilaudid and toradol Metoprolol home dose for tachycardia EKG and troponin serieS, on telemtery appears to have non specific ST depression, no chest pain Stress test in Apr 2019 unremarkable IVF D5NS NPO Attestations Medical Necessity Statement*: expect <2midnight for management of chronic pancreatitis 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 Pressure Supervisor for g Fwd Diagnoses Acute pancreatitis K85.90 Acute pancreatitis complication: no infection or necrosis Pancreatitis type: unspecified pancreatitis type Gastric ulcer K25.7 Gastric ulcer chronicity: chronic Gastric ulcer complication status: without hemorrhage or perforation
[2019-11-05 16:51] LABS: Chol HDL Ratio 2.58 mg/dL (0.0-4.40); Cholesterol 85 mg/dL (0-200); HDL Cholesterol 33 mg/dL (60-100); LDL Cholesterol Calculated 31 mg/dL (50-129); LDL HDL Ratio 0.94 RATIO (0.00-3.22); Triglycerides 106 mg/dL (0-150)
--- NOTE | 2019-11-05 17:41 | PC.NURSE ---
REPORT GIVEN TO ANNY Green RN
[2019-11-05 17:42] LABS: SARS Covid-2 Antigen Negative (Negative)
[2019-11-05] MEDS: dextrose 5%-sod chloride 0.9% 1,000 ML 100 ML IV (18:18)
[2019-11-05] MEDS: pantoprazole DR 40 mg Tablet PO (18:27)
[2019-11-05] MEDS: metoprolol tartrate 25 mg Tablet PO (18:27)
[2019-11-05] MEDS: enoxaparin 40 mg/0.4 mL Syringe SUBCUT (18:28)
--- NOTE | 2019-11-05 19:50 | ECG_ITS ---
[facility] Test Date: 2019-11-06 Pat Name: Therese Schaefer Department: Room: 257 Gender: Female Cancer Program Coordinator: : 1975 Requested By: Priya Ruiz Order Number: [id number] oRcio MD: Lei Ponce M.D. Measurements Intervals [place] Rate: 69 P: 24 TN: 141 QRS: -20 QRSD: 92 T: -7 QT: 403 QTc: 434 Interpretive Statements SINUS RHYTHM VOLTAGE CRITERIA FOR LVH Nonspecific T wave abnormality Compared to ECG 07/05/2019 12:22:36 No significant changes Electronically Signed On 11-06-2019 17:21:14 CDT by Lei Ponce M.D. [email or web address].[email or web address] medical centerEventyardst. [email or web address] hospital.ITT EXIM/store/[id number]
[2019-11-05] MEDS: sucralfate 1 gm Tablet PO (20:35)
[2019-11-05] MEDS: CLONazepam 0.5 mg Tablet PO (20:35)
[2019-11-05] MEDS: dicyclomine 20 mg Tablet PO (20:36)
[2019-11-05] MEDS: trazodone 150 mg Tablet PO (20:38)
[2019-11-05] MEDS: ketorolac 30 mg/mL INJ 15 MG IVP (20:58)
[2019-11-05 21:14] LABS: Troponin(5th) Baseline 7 ng/L (0-10)
[2019-11-05 23:16] LABS: Troponin 5 2HR 10.03 ng/L (0-10); Troponin 5 2HR Delta 3.03 ABS# (0-10)
[2019-11-06] VITALS (11 sets, daily range): BP systolic 111–131; BP diastolic 70–87; PULSE 62–79; RESP 16–20; TEMP 35.9–36.7; O2SAT 95–98
[2019-11-06] MEDS: dextrose 5%-sod chloride 0.9% 1,000 ML 100 ML IV ×2 (00:50→14:59)
--- NOTE | 2019-11-06 01:53 | ECG_ITS ---
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 Measurements Intervals [place] Rate: 70 P: 35 AK: 132 QRS: -16 QRSD: 91 T: -15 QT: 401 QTc: 435 Interpretive Statements SINUS RHYTHM Nonspecific T wave abnormality Compared to ECG 11/06/2019 00:18:42 No significant changes Electronically Signed On 11-06-2019 18:10:48 CDT by Lei Ponce M.D. [email or web address] Bankgreenwood leflore hospitalDWNLDselect medical clevel[facility] clinic rehabilitation hospital, beachwoodArava Power Company/store/[id number]
[2019-11-06 03:53] LABS: Basophils % 0.7 %; Eosinophils # 0.7 10^3/uL (0.0-0.8); Eosinophils % 12.1 %; Hematocrit 34.7 % (37.0-47.0); Hemoglobin 10.5 g/dL (11.5-15.3); Lymphocytes # 1.7 10^3/uL (0.8-4.8); Lymphocytes % 31.4 %; Mean Corpuscular HGB Conc 30.3 g/dL (30.0-36.0); Mean Corpuscular Hemoglobin 29.2 pg (28.0-34.0); Mean Corpuscular Volume 96.7 fL (81-99); Mean Platelet Volume 8.8 fL (7.4-10.4); Monocytes # 0.4 10^3/uL (0.2-0.9); Monocytes % 7.5 %; Neutrophils # 2.57 10^3/uL (1.8-7.7); Neutrophils % 48.1 %; Nucleated Red Blood Cells % 0 %; Platelet Count 204 10^3/cmm (130-400); Red Blood Count 3.59 10^6/uL (4.1-5.3); White Blood Count 5.4 10^3/uL (4.0-10.0)
[2019-11-06 04:24] LABS: Alanine Aminotransferase 15 U/L (0-33); Albumin Level 2.1 g/dL (3.5-5.2); Alkaline Phosphatase 142 IU/L (35-105); Blood Urea Nitrogen 5 mg/dL (6-20); Calcium 7.7 mg/dL (8.5-10.5); Carbon Dioxide 18 mmol/L (22-29); Chloride 116 mmol/L (98-107); Glomerular Filtration Rate 90.5 mL/min (90-130); Glucose 89 mg/dL (65-115); Osmolality Calculated 285 mOsm/kg (285-295); Sodium 140 mmol/L (136-145); Total Bilirubin 0.2 mg/dL (0.15-1.2); Total Protein 4.1 g/dL (6.6-8.7)
[2019-11-06 04:26] LABS: Anion Gap 9.3 (5-19); Aspartate Amino Transferase 22 U/L (0-32); Potassium 3.3 mmol/L (3.5-5.1)
[2019-11-06 04:51] LABS: Troponin 5 6HR 10.37 ng/L (0-10); Troponin 5 6HR Delta 3.37 ng/L (0-12)
[2019-11-06] MEDS: citalopram 20 mg Tablet PO (06:08)
[2019-11-06] MEDS: amlodipine 5 mg Tablet PO (08:08)
[2019-11-06] MEDS: aspirin 81 mg EC Tablet PO (08:08)
[2019-11-06] MEDS: sucralfate 1 gm Tablet PO ×3 (08:08→21:02)
[2019-11-06] MEDS: pantoprazole DR 40 mg Tablet PO ×3 (08:08→17:51)
[2019-11-06] MEDS: CLONazepam 0.5 mg Tablet PO ×3 (08:09→21:02)
[2019-11-06] MEDS: metoprolol tartrate 25 mg Tablet PO ×2 (08:10→17:51)
--- NOTE | 2019-11-06 08:18 | PC.CHAP ---
Pastoral Care Encounter/Spiritual Assessment Type of Contact [] Declined chief catalyst operator visit [] Patient/Family/Request visit [] Outpatient visit [] Follow-up visit [] Physician referral [] Code/Alert [x] Routine visit [] Staff referral [] Actively dying [] Patient sleeping [] Family support [] [] Out of room [] Palliative care [] [] Receiving care in room [] Pre-surgical visit [] Trauma [] Long length of stay [] ICU visit [x] Other: isolation Relational/Emotional Strength [] Patient feels connected with others/family/visitors/staff [] Distress [] Loneliness/isolation [] Abandonment Spirituality of Patient [] Person of Teresa [] Attends Sikhism of their Teresa [] Believes in Prayer [] Reads Bible or Christian materials [] There are Spiritual issues to be addressed Web Application Dev Specialist Interventions [x] Prayer [] Active listening [] Non-anxious presence [] Spiritual/emotional support [] Crisis/trauma care [] Spiritual counseling [] Bereavement support [] Provided bereavement packet [] Provided Bible/devotional materials [] Provided toy/stuffed animal, coloring book to patient or family member [] Provided Communion [] Anointing/[place] [] Salvation [x] Completed spiritual assessment [] Other: Impact on Illness or Injury [] Angry [] Fearful [] Anxious [] Often cries [] Exhaustion [] Unable to work [] Unable to attend orthodox [] Unable to walk/stand [] Unable to read [] Unable to drive [] Unable to eat/drink [] Unable to sleep [] Unable to be with family [] Patient intubated [] Other: Summary Time spent with patient
[2019-11-06] MEDS: dicyclomine 20 mg Tablet PO ×3 (09:00→21:02)
[2019-11-06] MEDS: ketorolac 30 mg/mL INJ 15 MG IVP (11:47)
--- NOTE | 2019-11-06 14:11 | P.PN_ITS ---
Subjective Subjective: Interval history: still with abdominal pain, nausea persisting but better, wants to try liquids today. Requesting pain medication more frequently today. Medications: Reviewed: Yes Vitals/I&O/Wt Last Vital Signs Temp 97.0 F L 11/06/19 11:09 Pulse 70 11/06/19 11:09 Resp 16 11/06/19 11:09 BP 122/81 11/06/19 11:09 Pulse Ox 95 11/06/19 11:09 11/05/19 11/06/19 11/06/19 22:59 06:59 14:59 Intake Total 1000 / 1945.833 Output Total 0 / 0 Balance 0 / 810.458 5731 / 1945.833 Weight last 48 hrs Weight 83.461 kg Physical Exam Narrative: EXAM NARRATIVE: GEN: Awake, alert and oriented, no acute distress CVS: S1S2 N RS: CTA B/L Abd: Soft, nt/nd , bs+ , some tenderness to palpation persisting in the epigastric area HOME CARE ADMINISTRATOR: no focal neuro deficits Data : 11/06/19 03:00 11/06/19 03:00 A&P Assessment and plan (1) Acute pancreatitis: Status: Acute Qualifiers: Acute pancreatitis complication: no infection or necrosis Pancreatitis type: unspecified pancreatitis type Qualified Code(s): K85.90 - Acute pancreatitis without necrosis or infection, unspecified (2) Gastric ulcer: Status: Acute Qualifiers: Gastric ulcer chronicity: chronic Gastric ulcer complication status: without hemorrhage or perforation Qualified Code(s): K25.7 - Chronic gastric ulcer without hemorrhage or perforation Additional A&P Information Acute on chronic pancreatitis Changed to inpatient status. Patient still with significant pain and nausea. We will try advancing diet to clears today from n.p.o. and assess for response. Pain control with dilaudid, increase frequency to every 4 hours given suboptimal pain control and toradol Metoprolol home dose for tachycardia, now well controlled EKG and troponin serieS without overt concern for ACS Stress test in Apr 2019 unremarkable IVF D5NS Hypokalemia, replete orally. DVT prophylaxis lovenox Attestations Medical Necessity Statement*: Acute on chronic pancreatitis, with suboptimal pain control at this present time. Hypokalemia 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 County Judge for [facility] Diagnoses Acute pancreatitis K85.90 Acute pancreatitis complication: no infection or necrosis Pancreatitis type: unspecified pancreatitis type Gastric ulcer K25.7 Gastric ulcer chronicity: chronic Gastric ulcer complication status: without hemorrhage or perforation
[2019-11-06] MEDS: potassium chloride ER 10 mEq Tablet 40 MEQ PO (14:57)
[2019-11-06] MEDS: enoxaparin 40 mg/0.4 mL Syringe SUBCUT (17:50)
[2019-11-06] MEDS: trazodone 150 mg Tablet PO (21:02)
[2019-11-07] VITALS (11 sets, daily range): BP systolic 109–127; BP diastolic 75–83; PULSE 59–69; RESP 14–18; TEMP 36.5–36.9; O2SAT 94–98
[2019-11-07] MEDS: dextrose 5%-sod chloride 0.9% 1,000 ML 100 ML IV ×3 (00:35→21:11)
[2019-11-07] MEDS: citalopram 20 mg Tablet PO (05:55)
[2019-11-07 06:07] LABS: Basophils % 0.7 %; Eosinophils # 0.5 10^3/uL (0.0-0.8); Eosinophils % 15.3 %; Hematocrit 39.8 % (37.0-47.0); Lymphocytes # 1.1 10^3/uL (0.8-4.8); Lymphocytes % 37.6 %; Mean Corpuscular HGB Conc 30.2 g/dL (30.0-36.0); Mean Corpuscular Hemoglobin 29.9 pg (28.0-34.0); Mean Corpuscular Volume 99.3 fL (81-99); Mean Platelet Volume 10.1 fL (7.4-10.4); Monocytes # 0.2 10^3/uL (0.2-0.9); Monocytes % 5.8 %; Neutrophils % 40.6 %; Nucleated Red Blood Cells % 0 %; Platelet Count 108 10^3/cmm (130-400); Red Blood Count 4.01 10^6/uL (4.1-5.3); Red Cell Distribution Width 17.6 % (12.1-15.1)
[2019-11-07 06:32] LABS: Alanine Aminotransferase 12 U/L (0-33); Albumin Level 1.8 g/dL (3.5-5.2); Alkaline Phosphatase 124 IU/L (35-105); Blood Urea Nitrogen 2 mg/dL (6-20); Calcium 6.3 mg/dL (8.5-10.5); Carbon Dioxide 18 mmol/L (22-29); Chloride 122 mmol/L (98-107); Globulin 1.3 g/dL (1.3-4.6); Glomerular Filtration Rate 90.5 mL/min (90-130); Osmolality Calculated 332 mOsm/kg (285-295); Sodium 145 mmol/L (136-145); Total Bilirubin 0.2 mg/dL (0.15-1.2); Total Protein 3.1 g/dL (6.6-8.7)
[2019-11-07 06:37] LABS: Anion Gap 8.2 (5-19); Aspartate Amino Transferase 22 U/L (0-32); Potassium 3.2 mmol/L (3.5-5.1)
[2019-11-07 06:38] LABS: Glucose 750 mg/dL (65-115)
[2019-11-07 06:47] LABS: Glucose Point of Care 78 mg/dL (70-110)
--- NOTE | 2019-11-07 06:57 | PC.NURSE ---
Glucose. Per lab glucose was 750. Per Dr Daniel rechecked with accu check machine and its 79.
[2019-11-07] MEDS: amlodipine 5 mg Tablet PO (07:51)
[2019-11-07] MEDS: CLONazepam 0.5 mg Tablet PO ×3 (07:51→21:06)
[2019-11-07] MEDS: aspirin 81 mg EC Tablet PO (07:51)
[2019-11-07] MEDS: metoprolol tartrate 25 mg Tablet PO ×2 (07:52→16:13)
[2019-11-07] MEDS: sucralfate 1 gm Tablet PO ×3 (07:52→21:06)
[2019-11-07] MEDS: pantoprazole DR 40 mg Tablet PO ×2 (07:52→16:13)
--- NOTE | 2019-11-07 09:05 | PM.PN ---
Subjective Subjective: Interval history: Still complaining of pain today. Nausea is better. Tolerating clear liquid diet now. Advance to full liquid. White count trending down slightly, however not uncommon for patient, similar trend seen on previous admissions which correct spontaneously. Blood sugar reported at 750 this morning is an error as it was drawn from the IV line that was running D5 normal saline. Medications: Reviewed: Yes Vitals/I&O/Wt Last Vital Signs Temp 97.7 F 11/07/19 07:56 Pulse 68 11/07/19 07:56 Resp 18 11/07/19 07:56 BP 120/79 11/07/19 07:56 Pulse Ox 97 11/07/19 07:56 11/06/19 11/07/19 11/07/19 22:59 06:59 14:59 Intake Total 160 / 1160 980 / 2140 731.667 / 731.667 Balance 160 / 860 980 / 1840 731.667 / 731.667 Weight last 48 hrs Weight 83.461 kg Physical Exam Narrative: EXAM NARRATIVE: GEN: Awake, alert and oriented, no acute distress CVS: S1S2 N RS: CTA B/L Abd: Soft, nt/nd , bs+ , some tenderness to palpation persisting in the epigastric area CHEMICAL PROJECT ENGINEER: no focal neuro deficits Data : 11/07/19 04:40 11/07/19 04:40 A&P Assessment and plan (1) Acute pancreatitis: Status: Acute Qualifiers: Acute pancreatitis complication: no infection or necrosis Pancreatitis type: unspecified pancreatitis type Qualified Code(s): K85.90 - Acute pancreatitis without necrosis or infection, unspecified (2) Gastric ulcer: Status: Acute Qualifiers: Gastric ulcer chronicity: chronic Gastric ulcer complication status: without hemorrhage or perforation Qualified Code(s): K25.7 - Chronic gastric ulcer without hemorrhage or perforation Additional A&P Information Acute on chronic pancreatitis. - Still with pain and nausea, though improving over yesterday. - Pain control with dilaudid and toradol - Metoprolol home dose for tachycardia, now well controlled IVF D5NS Hypokalemia, replete orally advance diet to full liquid and monitor for response DVT prophylaxis lovenox Attestations Medical Necessity Statement*: awaiting optimal pain control and bowel function 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 Tube Winder for [facility] Diagnoses Acute pancreatitis K85.90 Acute pancreatitis complication: no infection or necrosis Pancreatitis type: unspecified pancreatitis type Gastric ulcer K25.7 Gastric ulcer chronicity: chronic Gastric ulcer complication status: without hemorrhage or perforation
[2019-11-07] MEDS: dicyclomine 20 mg Tablet PO ×4 (09:45→21:11)
[2019-11-07] MEDS: enoxaparin 40 mg/0.4 mL Syringe SUBCUT (16:13)
[2019-11-07] MEDS: trazodone 150 mg Tablet PO (21:08)
[2019-11-07 23:54] LABS: Coronavirus Lab Test PTC N
[2019-11-08] VITALS (10 sets, daily range): BP systolic 113–126; BP diastolic 73–85; PULSE 60–71; RESP 18–20; TEMP 36.3–37; O2SAT 93–98
[2019-11-08] MEDS: citalopram 20 mg Tablet PO (06:37)
[2019-11-08] MEDS: dextrose 5%-sod chloride 0.9% 1,000 ML 100 ML IV (08:14)
[2019-11-08] MEDS: CLONazepam 0.5 mg Tablet PO ×3 (08:16→21:32)
[2019-11-08] MEDS: aspirin 81 mg EC Tablet PO (08:16)
[2019-11-08] MEDS: amlodipine 5 mg Tablet PO (08:16)
[2019-11-08] MEDS: dicyclomine 20 mg Tablet PO ×4 (08:17→21:32)
[2019-11-08] MEDS: pantoprazole DR 40 mg Tablet PO ×2 (08:17→16:49)
[2019-11-08] MEDS: sucralfate 1 gm Tablet PO ×3 (08:17→16:49)
[2019-11-08] MEDS: metoprolol tartrate 25 mg Tablet PO ×2 (08:17→16:49)
[2019-11-08] MEDS: enoxaparin 40 mg/0.4 mL Syringe SUBCUT (16:50)
--- NOTE | 2019-11-08 17:07 | PM.PN ---
Subjective Subjective: Interval history: No acute events. Still complains of nausea. Pain is better. Advance to mechanical soft diet today Medications: Reviewed: Yes Vitals/I&O/Wt Last Vital Signs Temp 98.6 F 11/08/19 16:00 Pulse 69 11/08/19 16:00 Resp 18 11/08/19 16:00 BP 126/80 11/08/19 16:00 Pulse Ox 98 11/08/19 16:00 11/08/19 11/08/19 11/08/19 06:59 14:59 22:59 Intake Total 440 / 4451.667 2019 Balance 440 / 4451.667 2019 Physical Exam Narrative: EXAM NARRATIVE: GEN: Awake, alert and oriented, no acute distress CVS: S1S2 N RS: CTA B/L except crackles over RUL Abd: Soft, nt/nd , bs+ COTTON ACREAGE MEASURER: no focal neuro deficits Data : 11/07/19 04:40 11/07/19 04:40 A&P Assessment and plan (1) Acute pancreatitis: Status: Acute Qualifiers: Acute pancreatitis complication: no infection or necrosis Pancreatitis type: unspecified pancreatitis type Qualified Code(s): K85.90 - Acute pancreatitis without necrosis or infection, unspecified (2) Gastric ulcer: Status: Acute Qualifiers: Gastric ulcer chronicity: chronic Gastric ulcer complication status: without hemorrhage or perforation Qualified Code(s): K25.7 - Chronic gastric ulcer without hemorrhage or perforation Additional A&P Information Acute on chronic pancreatitis. - Still with pain and nausea, advance diet to mechanical soft - Pain control with dilaudid and toradol - Metoprolol home dose for tachycardia, now well controlled IVF D5NS Hypokalemia, replete orally advance diet to full liquid and monitor for response DVT prophylaxis lovenox Attestations Medical Necessity Statement*: Pancreatitis improving, plan discharge in the upcoming 24 hours 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 Heavy Duty Diesel Mechanic for g Fwd Diagnoses Acute pancreatitis K85.90 Acute pancreatitis complication: no infection or necrosis Pancreatitis type: unspecified pancreatitis type Gastric ulcer K25.7 Gastric ulcer chronicity: chronic Gastric ulcer complication status: without hemorrhage or perforation
--- NOTE | 2019-11-08 18:28 | PC.NURSE ---
SUMMARY - Pt a/o x4. PT is c/o pain in abd continuously and requesting pain meds. Pain meds given as ordered q4h po dilaudid. Patient is up ad alyssa with BRP. Possible d/c 11/09/2019. AUDI, ADAM
[2019-11-08] MEDS: trazodone 150 mg Tablet PO (21:32)
[2019-11-09] VITALS (9 sets, daily range): BP systolic 109–125; BP diastolic 60–89; PULSE 68–72; RESP 16–22; TEMP 36.4–37.2; O2SAT 92–97
--- NOTE | 2019-11-09 06:22 | PC.NURSE ---
IV Accidentally pulled IV out and does not want it restarted until sees this morning. Thinks she is going home. Has been medicated for abd pain c/o with po Dilaudid. Denies nausea and requested a sandwich and milk during night. Urinating well
[2019-11-09] MEDS: citalopram 20 mg Tablet PO (07:26)
[2019-11-09] MEDS: CLONazepam 0.5 mg Tablet PO ×3 (07:26→21:01)
[2019-11-09] MEDS: metoprolol tartrate 25 mg Tablet PO ×2 (07:26→17:19)
[2019-11-09] MEDS: sucralfate 1 gm Tablet PO ×3 (07:26→17:19)
[2019-11-09] MEDS: amlodipine 5 mg Tablet PO (07:26)
[2019-11-09] MEDS: aspirin 81 mg EC Tablet PO (07:26)
[2019-11-09] MEDS: pantoprazole DR 40 mg Tablet PO ×2 (07:31→17:19)
[2019-11-09] MEDS: dicyclomine 20 mg Tablet PO ×4 (09:38→21:00)
--- NOTE | 2019-11-09 12:47 | PM.DCS ---
Discharge Providers Date of Admission: 11/06/19 14:38 Date of Discharge: November 09, 2019 Attending Provider at Admission: Priya Ruiz MD Attending Provider at Discharge: Priya Ruiz MD Primary Care Provider: Rosi Shell NP Diagnoses at Discharge Discharge Diagnosis (1) Acute pancreatitis: Status: Acute (2) Gastric ulcer: Status: Acute Qualifiers: Gastric ulcer chronicity: chronic Gastric ulcer complication status: without hemorrhage or perforation Qualified Code(s): K25.7 - Chronic gastric ulcer without hemorrhage or perforation Reason for Visit Reason for Visit: N/V Hospital Course Discharge Summary: Therese Schaefer is a 43 year old female with PMH recurrent pancreatitis, HTN, s/p multiple recent admissions who presents to the hospital with complaint of abdominal pain. She was found to have evidence of acute pancreatitis. Lipase was mildly elevated at 199. She was treated initially with bowel rest, IV fluid hydration and pain management. She continued to improve during the course of admission. At the time of discharge she is able to tolerate a mechanical soft diet. Hydration is adequate. 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 Discharge Data Data Completed and Pending: Completed Studies During Hospitalization Category Date Time Status CT abdomen pelvis w con* [id number] Urge nt Cat Scan 11/05/19 11:50 Completed Vitals: Last Vital Signs Temp 97.8 F 11/09/19 11:29 Pulse 68 11/09/19 11:29 Resp 20 H 11/09/19 11:29 BP 118/79 11/09/19 11:29 Pulse Ox 95 11/09/19 11:29 Discharge Plan Discharge Patient Disposition: Home Condition: Stable Prescriptions: New hydromorphone [Dilaudid] 2 mg tablet 2 mg PO Q12H PRN (Reason: pain) Qty: 14 RF: 0 Continued citalopram [Celexa] 20 mg tablet 20 mg PO QAM Qty: 90 RF: 2 clonazepam [Klonopin] 0.5 mg tablet 0.5 mg PO TID Qty: 90 RF: 3 trazodone 150 mg tablet 150 mg PO BEDTIME PRN (Reason: sleep) Qty: 90 RF: 2 sucralfate 1 gram Tablet 1 g PO TID RF: 0 aspirin [Aspir-81] 81 mg Tablet,Delayed Release (Dr/Ec) 81 mg PO DAILY RF: 0 acetaminophen [Tylenol Extra Strength] 500 mg Tablet 500 - 1,000 mg PO PRN PRN (Reason: Pain) RF: 0 multivitamin [Multiple Vitamins] Tablet 1 tab PO DAILY RF: 0 metoprolol tartrate 25 mg Tablet 25 mg PO BID RF: 0 amlodipine 5 mg Tablet 5 mg PO DAILY RF: 0 Dexilant 60 mg capsule,biphase delayed releas 60 mg PO BID RF: 0 pantoprazole 40 mg Tablet,Delayed Release (Dr/Ec) 40 mg PO BID RF: 0 lorazepam [Ativan] 1 mg tablet 1 mg PO Q8H PRN (Reason: prn nausea) Qty: 20 RF: 0 dicyclomine 20 mg tablet 20 mg PO QID Qty: 30 RF: 0 Discharge Orders: Discharge Order (Routine); Ordered 11/10/19 Ordered By: Priya Ruiz Referrals: . [Other] (On the next business day please schedule a post hospital follow up appointment with your primary care provider to be seen in 4-7 days. 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
[2019-11-09] MEDS: enoxaparin 40 mg/0.4 mL Syringe SUBCUT (17:20)
[2019-11-09] MEDS: trazodone 150 mg Tablet PO (21:01)
[2019-11-10] VITALS (10 sets, daily range): BP systolic 105–143; BP diastolic 69–89; PULSE 64–92; RESP 16–18; TEMP 36.4–36.9; O2SAT 94–97
--- NOTE | 2019-11-10 05:44 | PC.NURSE ---
SHIFT SUMMARY Has rested well tonight. Requests pain med q4h and usually asks for it before time. c/o abd pain and tenderness generalized but says is worst in LUQ. No c/o nausea this shift and ate a sandwich in middle of the night.
[2019-11-10] MEDS: citalopram 20 mg Tablet PO (06:01)
[2019-11-10] MEDS: amlodipine 5 mg Tablet PO (08:28)
[2019-11-10] MEDS: sucralfate 1 gm Tablet PO (08:28)
[2019-11-10] MEDS: pantoprazole DR 40 mg Tablet PO (08:28)
[2019-11-10] MEDS: metoprolol tartrate 25 mg Tablet PO (08:28)
[2019-11-10] MEDS: aspirin 81 mg EC Tablet PO (08:29)
[2019-11-10] MEDS: dicyclomine 20 mg Tablet PO ×2 (08:31→13:42)
[2019-11-10] MEDS: CLONazepam 0.5 mg Tablet PO ×2 (10:30→15:49)
--- NOTE | 2019-11-10 16:12 | P.DS_ITS ---
Discharge Providers Date of Admission: 11/06/19 14:38 Date of Discharge: November 10, 2019 Attending Provider at Admission: Priya Ruiz MD Attending Provider at Discharge: Priya Ruiz MD Primary Care Provider: Rosi Shell NP Diagnoses at Discharge Discharge Diagnosis (1) Acute pancreatitis: Status: Acute (2) Gastric ulcer: Status: Acute Qualifiers: Gastric ulcer chronicity: chronic Gastric ulcer complication status: without hemorrhage or perforation Qualified Code(s): K25.7 - Chronic gastric ulcer without hemorrhage or perforation Reason for Visit Reason for Visit: N/V Hospital Course Discharge Summary: Please refer to my discharge summary from yesterday. Patient eventually could not leave yesterday as she did not have a ride and there was no one at home so she did not feel comfortable leaving. She is being discharged today. No acute interim events. Patient remained stable Discharge Data Data Completed and Pending: Completed Studies During Hospitalization Category Date Time Status CT abdomen pelvis w con* [id number] Urge nt Cat Scan 11/05/19 11:50 Completed Vitals: Last Vital Signs Temp 97.6 F 11/10/19 15:53 Pulse 68 11/10/19 15:53 Resp 18 11/10/19 15:53 BP 113/74 11/10/19 15:53 Pulse Ox 97 11/10/19 11:38 Discharge Plan Discharge Patient Disposition: Home Condition: Stable Prescriptions: New Dilaudid 2 mg tablet 2 mg PO Q12H PRN (Reason: pain) Qty: 14 RF: 0 Continued citalopram [Celexa] 20 mg tablet 20 mg PO QAM Qty: 90 RF: 2 clonazepam [Klonopin] 0.5 mg tablet 0.5 mg PO TID Qty: 90 RF: 3 trazodone 150 mg tablet 150 mg PO BEDTIME PRN (Reason: sleep) Qty: 90 RF: 2 sucralfate 1 gram Tablet 1 g PO TID RF: 0 aspirin [Aspir-81] 81 mg Tablet,Delayed Release (Dr/Ec) 81 mg PO DAILY RF: 0 acetaminophen [Tylenol Extra Strength] 500 mg Tablet 500 - 1,000 mg PO PRN PRN (Reason: Pain) RF: 0 multivitamin [Multiple Vitamins] Tablet 1 tab PO DAILY RF: 0 metoprolol tartrate 25 mg Tablet 25 mg PO BID RF: 0 amlodipine 5 mg Tablet 5 mg PO DAILY RF: 0 Dexilant 60 mg capsule,biphase delayed releas 60 mg PO BID RF: 0 pantoprazole 40 mg Tablet,Delayed Release (Dr/Ec) 40 mg PO BID RF: 0 lorazepam [Ativan] 1 mg tablet 1 mg PO Q8H PRN (Reason: prn nausea) Qty: 20 RF: 0 dicyclomine 20 mg tablet 20 mg PO QID Qty: 30 RF: 0 Discharge Orders: Discharge Order (Routine); Ordered 11/10/19 Ordered By: Priya Ruiz Referrals: . [Other] - 4-7 days (On the next business day please schedule a post hospital follow up appointment with your primary care provider to be seen in 4-7 days. 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
--- NOTE | 2019-11-10 16:47 | PC.NURSE ---
Reviewed discharge instructions with patient. Patient provided a work note and a prescription for Dilaudid #14. Patient is A&Ox3. Respirations even and non-labored on room air. Patient verbalized understanding of discharge instructions including follow up with her primary care provider. Patient wheel chaired to her private car.
== END 2019-11-10 16:30 | disposition home or self-care (01) | DRG 439 ==
LOC: ER 15:27 → MEDSURG 17:39
PROVIDERS: Family Medicine; Nurse Practitioner Family; Admitting Provider Student in an Organized Health Care Education/Training Program; PCP Nurse Practitioner Family; Visit Provider Student in an Organized Health Care Education/Training Program
DX: K85.90 Acute pancreatitis without necrosis or infection, unspecified (principal); F33.2 Major depressive disorder, recurrent severe without psychotic features; K86.1 Other chronic pancreatitis; I10 Essential (primary) hypertension; Z98.84 Bariatric surgery status; F43.12 Post-traumatic stress disorder, chronic; F41.9 Anxiety disorder, unspecified; Z87.891 Personal history of nicotine dependence; K25.7 Chronic gastric ulcer without hemorrhage or perforation; E87.6 Hypokalemia; Z79.82 Long term (current) use of aspirin; Z79.891 Long term (current) use of opiate analgesic
CPT/HCPCS: 12345; 36415; 36416; 74177; 80053; 80061; 81001; 82962; 84484; 85025; 87426; 87635; 93005; 93010; 96372; 96375; 99283; G0378; J0696; J1200; J1630; J1650; J1885; J2060; J2270; J2543; J7040; Q9967

== ENCOUNTER 2019-11-20 12:11 | Observation (INO) | payer SELFPAY ==
[2019-11-20] VITALS (8 sets, daily range): BP systolic 109–124; BP diastolic 52–84; PULSE 78–95; RESP 16–18; TEMP 36.8; O2SAT 97–99; BMI 28.3
--- NOTE | 2019-11-20 14:15 | CT_ITS ---
WS: [id number] EXAM: CT OF THE ABDOMEN AND PELVIS WITHOUT CONTRAST DATE OF EXAMINATION: 11/20/2019, 1618 hours COMPARISON: Prior CT from 06/05/2019 HISTORY: 43 years old with abdominal pain. TECHNIQUE: Transaxial computed tomography images obtained through the abdomen and pelvis without utilization of contrast viewed in multiple windows with reconstructions. DLP: 724.[address] scans at [facility] use at least one of these dose optimization techniques: automat ed exposure control; mA and/or kV adjustment per patient size (includes targeted exams where dose is matched to clinical indication); or iterative reconstruction. FINDINGS: The lung bases are clear. Heart size is normal. The aorta is normal in caliber. Without IV contrast e valuation of the lumen is considered inadequate. Liver attenuation is normal. Clips in the right uppe r quadrant felt to represent cholecystectomy changes. No biliary dilatation is noted. The spleen is normal in appearance. The pancreas is normal appearance. Adrenal glands are normal appearance. Both kidneys are normal in size and attenuation. No definite renal or ureteral calculus. No obstructi ve uropathy. There are postsurgical changes at the GE junction from prior presumed gastric bypass surgery. Please correlate. No stomach obstruction is seen. Small bowel is normal in caliber. The colon is normal in caliber. Sca ttered diverticulosis changes are identified. Surgical clips in the right false pelvis presumably rel ated to prior appendectomy. No bowel obstruction is seen. Shotty lymph nodes within the mesentery. Bladder is minimally distended otherwise unremarkable. No groin hernia or umbilical hernia is identified. Uterus is absent. No adnexal mass. Trace free fluid in the right side of the deep pelvis. Scattered degenerative changes are seen in the spine. CT/CT abdomen pelvis wo con [id number] IMPRESSION: Findings suggesting prior gastric bypass surgery. No findings of bowel obstruct ion, free air, free fluid or inflammatory process. No renal or ureteral calculus or obstructive uropathy. Other nonemergent findings as described in the body of the report.
--- NOTE | 2019-11-20 14:18 | W.ED.ABDPA2 ---
HPI - Abdominal Pain General: Chief Complaint: Abdominal Pain Stated Complaint: vomiting/abd pain Time Seen by Provider: 11/20/19 14:08 Source: patient Mode of arrival: ambulatory Limitations: no limitations History of Present Illness: HPI narrative: Therese is a 43-year-old female with chronic pancreatitis that comes in complaining abdominal pain and vomiting. She states she cannot keep anything down at home. She denies any fever or chills. She has any diarrhea or constipation. She denies any chest pain or shortness of breath. She states anytime she eats or drinks makes it worse nothing makes it better. Associated Symptoms: Reports nausea and vomiting; Denies chills, coffee ground emesis, constipation, GI cramping, diarrhea, dysuria, fever(s), heartburn, hematochezia, hematuria, hematemesis, melena and syncope Review of Systems Const: Denies: fever(s), chills, body aches, fatigue, malaise or diaphoresis Eyes: Denies: change in vision, blurry vision, photophobia, eye discomfort, eye discharge or eye redness ENMT: Denies: throat pain, odynophagia, hoarseness, swelling of lips/tongue, ear or mastoid pain, ear discharge, change in hearing or nasal discharge Card: Denies: chest pain, palpitations, irregular heart rhythm, edema, lightheadedness, syncope, pre-syncope, dyspnea on exertion or orthopnea Resp: Denies: dyspnea, productive cough, non-productive cough, wheezing, hemoptysis or chest congestion GI: Reports: abdominal pain, nausea and vomiting; Denies: hematemesis, coffee ground emesis, heartburn, diarrhea, constipation, GI cramping, hematochezia or melena : Denies: flank pain, dysuria, urinary frequency, urinary urgency or hematuria Musc: Denies: neck pain, back pain, extremity pain, extremity swelling, joint pain, joint swelling, joint redness, joint warmth or joint stiffness Skin/Breast: Denies: rash, pruritus, erythema or skin tenderness Neuro: Denies: headache(s), numbness in extremities, weakness in extremities, sensory changes, lack of coordination, difficulty walking, dizziness, vertigo, confusion, Slurred speech present or seizure-like activity Gomez/Lymph: Denies: easy bruising, easy bleeding, petechiae, purpura or enlarged lymph nodes All/Imm: Denies: urticaria, throat swelling, tongue swelling, facial swelling or acute wheezing PFSH ED PFSH: Medical History Anastomotic ulcer S/P gastric bypass Chronic post-traumatic stress disorder Generalized anxiety disorder Hypertension Major depressive disorder, recurrent severe without psychotic features Vomiting blood Surgical History H/O esophagogastroduodenoscopy (~06/2019) H/O: hysterectomy History of partial gastrectomy Hx of cholecystectomy S/P appendectomy Family History Mother CAD (coronary artery disease) Other Hypertension Denies family history of Anesthesia complication Bleeding disorder Social History Smoking and tobacco status: former smoker Alcohol intake: never Adopted: No Caregiver/support person: Yes Lives independently: Yes Household members: family and children Housing: House Marital status: service: No Current occupational status: employed Current occupational exposures/hazards: No Pets and animals: No History of recent travel: No Sexually active: No Current gender identity: Female Teresa/Denominational: Rastafarian Special teresa needs: No Agree to transfusion: No Financial difficulty paying for basics: Decline to Answer Physical Exam Const: COMMON NORMALS: no acute distress, patient oriented x3, no limitations, healthy appearing and well nourished GENERAL APPEARANCE: cooperative, well kempt and well developed HENMT: COMMON NORMALS: normocephalic, atraumatic, external ears normal, EAC's normal and Normal external nose present HEAD & SCALP: normal to inspection, normocephalic and atraumatic FACE & SINUS: normal facial exam and face symmetric NOSE: Normal external nose present and Normal nares present EXTERNAL EAR: Yes external ears normal EXTERNAL AUDITORY CANAL: EAC's normal MOUTH: Normal oral and palatal mucosa present, lip normal and tongue normal Eye: COMMON NORMALS: Equal, round and reactive pupils present and conjunctivae normal GENERAL EYE: appearance normal, both eyes and all related structures ALIGNMENT: Yes alignment normal PERIORBITAL: periorbital findings normal EYELID: eyelids normal CONJUNCTIVA: Yes conjunctivae normal SCLERA: sclerae normal PUPIL: Yes Equal, round and reactive pupils present Neck/C-Spine: COMMON NORMALS: full ROM, no lymphadenopathy, supple, no meningeal signs and no JVD GENERAL: Yes normal visual inspection and Yes trachea midline Chest: COMMONS NORMALS: normal inspection of the chest and normal palpation of entire chest wall Resp: COMMON NORMALS: normal respiratory effort, No retractions, No use of accessory muscles and clear to auscultation bilaterally EFFORT & INSPECTION: Yes able to speak in complete sentences and Yes symmetric chest movement AUSCULTATION: clear to auscultation bilaterally, no crackles, no rales, no rhonchi and no wheezes Cardio: COMMON NORMALS: no JVD, regular rate, regular rhythm, S1 normal heart sound present and S2 normal heart sound present RATE: regular rate RHYTHM: regular rhythm HEART SOUNDS: S1 normal heart sound present, S2 normal heart sound present, no click, no gallops, no murmurs, no rubs and abnormal split S2 GI: COMMON NORMALS: Soft to palpation and No hepatosplenomegaly present PALPATION: Yes Soft to palpation, Yes Tenderness to palpation present (GI) (Mild diffusely), No Guarding due to palpation present (GI), No Rigid due to palpation, Yes No hepatosplenomegaly present, No Hernia present, No Palpable mass present and No Pulsatile mass present : COMMON NORMALS: Yes no CVA tenderness BLADDER/KIDNEY EXAM: Yes no CVA tenderness EXTERNAL FEMALE EXAM: No Hernia present Back/Pelvis: COMMON NORMALS: no CVA tenderness, thoracic and lumbar spine normal to inspection, no thoracic nor lumbar tenderness and thoraco-lumbar ROM normal Extremity: COMMON NORMALS: normal to inspection, full ROM, capillary refill normal, no joint enlargement, no clubbing, cyanosis or edema and no calf tenderness Neuro: COMMON NORMALS: patient oriented x3, CN's II-XII intact bilaterally, moves all extremities, no focal motor deficits and no sensory deficits noted MENINGEAL SIGNS: Yes no meningeal signs SPEECH: speech normal Psych: COMMON NORMALS: mental status grossly normal, Normal thought process present, cooperative, normal affect, speech normal and activity/motor behavior normal APPEARANCE: Yes well kempt SPEECH: Yes normal speech THOUGHT PROCESS: Normal thought process present Skin: COMMON NORMALS: no rashes or lesions noted, turgor normal, no jaundice, no petechiae and no mottling GENERAL SKIN EXAM: no rashes or lesions noted and turgor normal Procedures EJ/Peripheral Line Arm R: Time Out Performed: Yes Skin Cleansed in Sterile Fashion: Yes Size (gauge): 20 IV Secured and Dressing Applied: Yes Patient Tolerated Procedure: well Additional Comments: Ultrasound utilized throughout. Course Vital Signs: Vital signs: Vital Signs Temperature 98.3 F 11/20/19 12:23 Pulse Rate 95 11/20/19 12:23 Respiratory Rate 18 11/20/19 16:24 Blood Pressure 119/84 11/20/19 12:23 Pulse Oximetry 97 11/20/19 16:24 MDM - Abdominal Pain MDM Narrative: Medical decision making narrative: The patient has not tolerated p.o.'s here but is not vomiting when others are round. I reviewed the case with Dr. Ruiz she agrees to admit for hydration. Lab Data: Attestation: I reviewed the patient's lab results. Labs: Lab Results 11/20/19 11/20/19 11/20/19 Range/Units 14:24 14:24 14:24 WBC Cancelled Corrected WBC Cancelled RBC Cancelled Hgb Cancelled Hct Cancelled MCV Cancelled MCH Cancelled MCHC Cancelled RDW Cancelled Plt Count Cancelled MPV Cancelled Gran % Cancelled Neut % (Auto) Cancelled Lymph % (Auto) Cancelled [place] % (Auto) Cancelled Eos % (Auto) Cancelled Baso % (Auto) Cancelled Neut # (Auto) Cancelled Lymph # (Auto) Cancelled [place] # (Auto) Cancelled Eos # (Auto) Cancelled Baso # (Auto) Cancelled Absolute Gran (aut o) Cancelled Nucleated RBC % (a uto) Cancelled Nucleated RBCs # Cancelled Sodium 138 (136-145) mmol/L Potassium 4.8 (3.5-5.1) mmol/L Chloride 107 (98-107) mmol/L Carbon Dioxide 19 L (22-29) mmol/L Anion Gap 16.8 (5-19) BUN 8 (6-20) mg/dL Creatinine 0.9 (0.5-0.9) mg/dL GFR Calculation 67.7 L (90-130) mL/min Glucose 99 (65-115) mg/dL Calculated Osmolal ity 282 L (285-295) mOsm/k g Lactic Acid (0.5-2.2) mmol/L Calcium 8.6 (8.5-10.5) mg/dL Total Bilirubin 0.3 (0.15-1.2) mg/dL AST 31 (0-32) U/L ALT 24 (0-33) U/L Alkaline Phosphata se 195 H (35-105) IU/L Total Protein 5.4 L (6.6-8.7) g/dL Albumin 3.0 L (3.5-5.2) g/dL Globulin 2.4 (1.3-4.6) g/dL Lipase 198 H (13-60) U/L HCG, Qual Negative (Negative) Urine Color (Yellow) Urine Appearance (CLEAR) Urine pH (5-7) Ur Specific Gravit y (1.005-1.030) Urine Protein (Negative) Urine Glucose (UA) (Normal) Urine Ketones (Negative) Urine Blood (Negative) Urine Nitrate (Negative) Urine Bilirubin (NEGATIVE) Urine Urobilinogen (Negative) mg/dL Ur Leukocyte Stephanie ase (Negative) Urine RBC (0-2) /hpf Urine WBC (0-5) /hpf Ur Squamous Epith Cells (0-5) Calcium Oxalate Cr ystal /hpf Amorphous Sediment Urine Bacteria (NONE) 11/20/19 11/20/19 11/20/19 Range/Units 14:47 14:47 15:36 WBC 6.0 Corrected WBC RBC 4.98 Hgb 14.4 Hct 48.5 H MCV 97.4 MCH 28.9 MCHC 29.7 L RDW 17.0 H Plt Count 343 MPV 8.8 Gran % Neut % (Auto) 67.5 Lymph % (Auto) 24.3 [place] % (Auto) 4.7 Eos % (Auto) 2.0 Baso % (Auto) 1.2 Neut # (Auto) 4.05 Lymph # (Auto) 1.5 [place] # (Auto) 0.3 Eos # (Auto) 0.1 Baso # (Auto) 0.1 Absolute Gran (aut o) Nucleated RBC % (a uto) 0 Nucleated RBCs # 0.0 Sodium (136-145) mmol/L Potassium (3.5-5.1) mmol/L Chloride (98-107) mmol/L Carbon Dioxide (22-29) mmol/L Anion Gap (5-19) BUN (6-20) mg/dL Creatinine (0.5-0.9) mg/dL GFR Calculation (90-130) mL/min Glucose (65-115) mg/dL Calculated Osmolal ity (285-295) mOsm/k g Lactic Acid 0.7 (0.5-2.2) mmol/L Calcium (8.5-10.5) mg/dL Total Bilirubin (0.15-1.2) mg/dL AST (0-32) U/L ALT (0-33) U/L Alkaline Phosphata se (35-105) IU/L Total Protein (6.6-8.7) g/dL Albumin (3.5-5.2) g/dL Globulin (1.3-4.6) g/dL Lipase (13-60) U/L HCG, Qual (Negative) Urine Color Yellow (Yellow) Urine Appearance Clear (CLEAR) Urine pH 5 (5-7) Ur Specific Gravit y 1.020 (1.005-1.030) Urine Protein Neg (Negative) Urine Glucose (UA) Norm (Normal) Urine Ketones 1+ H (Negative) Urine Blood Neg (Negative) Urine Nitrate Negative (Negative) Urine Bilirubin 1+ H (NEGATIVE) Urine Urobilinogen Norm (Negative) mg/dL Ur Leukocyte Stephanie ase Negative (Negative) Urine RBC 0-4 H (0-2) /hpf Urine WBC 5-10 H (0-5) /hpf Ur Squamous Epith Cells 10-15 H (0-5) Calcium Oxalate Cr ystal 5-10 H /hpf Amorphous Sediment Not Reportable Urine Bacteria 1+ H (NONE) Discharge Plan Discharge Prescriptions: No Action citalopram [Celexa] 20 mg tablet 20 mg PO QAM Qty: 90 RF: 2 trazodone 150 mg tablet 150 mg PO BEDTIME PRN (Reason: sleep) Qty: 90 RF: 2 sucralfate 1 gram Tablet 1 g PO TID RF: 0 aspirin [Aspir-81] 81 mg Tablet,Delayed Release (Dr/Ec) 81 mg PO DAILY RF: 0 acetaminophen [Tylenol Extra Strength] 500 mg Tablet 500 - 1,000 mg PO PRN RF: 0 multivitamin [Multiple Vitamins] Tablet 1 tab PO DAILY RF: 0 metoprolol tartrate 25 mg Tablet 25 mg PO BID RF: 0 amlodipine 5 mg Tablet 5 mg PO DAILY RF: 0 Dexilant 60 mg capsule,biphase delayed releas 60 mg PO BID RF: 0 lorazepam [Ativan] 1 mg tablet 1 mg PO Q8H PRN (Reason: prn nausea) Qty: 20 RF: 0 hydromorphone [Dilaudid] 2 mg tablet 2 mg PO Q12H PRN (Reason: pain) Qty: 14 RF: 0 dicyclomine 20 mg tablet 20 mg PO QID Qty: 30 RF: 0 Ultram 50 mg Tablet 50 mg PO TID PRN (Reason: Pain) RF: 0 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 of Care Code ED 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
[2019-11-20 14:50] LABS: Alanine Aminotransferase 24 U/L (0-33); Alkaline Phosphatase 195 IU/L (35-105); Blood Urea Nitrogen 8 mg/dL (6-20); Calcium 8.6 mg/dL (8.5-10.5); Carbon Dioxide 19 mmol/L (22-29); Chloride 107 mmol/L (98-107); Globulin 2.4 g/dL (1.3-4.6); Glomerular Filtration Rate 67.7 mL/min (90-130); Glucose 99 mg/dL (65-115); Lipase 198 U/L (13-60); Osmolality Calculated 282 mOsm/kg (285-295); Sodium 138 mmol/L (136-145); Total Bilirubin 0.3 mg/dL (0.15-1.2); Total Protein 5.4 g/dL (6.6-8.7)
[2019-11-20 14:51] LABS: Anion Gap 16.8 (5-19); Aspartate Amino Transferase 31 U/L (0-32); Potassium 4.8 mmol/L (3.5-5.1)
[2019-11-20 14:53] LABS: Basophils # 0.1 10^3/uL (0.0-0.1); Basophils % 1.2 %; Eosinophils # 0.1 10^3/uL (0.0-0.8); Hematocrit 48.5 % (37.0-47.0); Hemoglobin 14.4 g/dL (11.5-15.3); Lymphocytes # 1.5 10^3/uL (0.8-4.8); Lymphocytes % 24.3 %; Mean Corpuscular HGB Conc 29.7 g/dL (30.0-36.0); Mean Corpuscular Hemoglobin 28.9 pg (28.0-34.0); Mean Corpuscular Volume 97.4 fL (81-99); Mean Platelet Volume 8.8 fL (7.4-10.4); Monocytes # 0.3 10^3/uL (0.2-0.9); Monocytes % 4.7 %; Neutrophils # 4.05 10^3/uL (1.8-7.7); Neutrophils % 67.5 %; Nucleated Red Blood Cells % 0 %; Platelet Count 343 10^3/cmm (130-400); Red Blood Count 4.98 10^6/uL (4.1-5.3)
[2019-11-20 15:01] LABS: HCG, Serum Qual Negative (Negative)
[2019-11-20] MEDS: sodium chloride 0.9% 1,000 ML 999 ML IV (15:08)
[2019-11-20 15:14] LABS: Lactic Sepsis W/Reflex 0.7 mmol/L (0.5-2.2)
[2019-11-20] MEDS: LORazepam 2 mg/mL INJ 1 mL 1 MG IVP (15:24)
[2019-11-20] MEDS: diphenhydrAMINE 50 mg/mL SDV 1mL 25 MG IVP (15:25)
[2019-11-20] MEDS: HYDROmorphone 1 mg/mL INJ 1 mL IVP ×2 (15:30→16:24)
[2019-11-20 16:24] LABS: Bilirubin Urine 1+ (NEGATIVE); Blood Urine Neg (Negative); Glucose Urine UA Norm (Normal); Ketones Urine 1+ (Negative); Nitrate Urine Negative (Negative); Protein Urine Neg (Negative); Urine Appearance Clear (CLEAR); Urine Color Yellow (Yellow); pH Urine 5 (5-7)
[2019-11-20 16:25] LABS: Leukocyte Esterase Urine Negative (Negative); Urobilinogen Urine Norm (Negative)
[2019-11-20] MEDS: iohexol 300 mg/mL 100 mL Btl IV (16:25)
[2019-11-20 16:44] LABS: Bacteria Urine 1+; RBC Urine 0-4 /hpf (0-2)
[2019-11-20 16:45] LABS: Add Urine Culture? No
--- NOTE | 2019-11-20 18:36 | P.HP_ITS ---
Providers/Chief Complaint Primary Care Provider: Rosi Shell NP Chief Complaint: vomiting/abd pain History of Present Illness Therese Schaefer is a 43 year old female With multiple recent admissions to the hospital, History of chronic pancreatitis, gastric ulcer, opioid dependence, presenting again for abdominal pain nausea and vomiting. CT scan without evidence of new pancreatitis. Lipase not significantly elevated. Review of Systems General: Reports: 10 or more systems reviewed and unremarkable except in HPI and below Const: Denies: fever(s), chills or body aches Eyes: Denies: change in vision, blurry vision or photophobia ENMT: Reports: hoarseness; Denies: throat pain, enlarged tonsils, odynophagia or nasal congestion Card: Denies: chest pain, palpitations, irregular heart rhythm, edema, swelling of feet/ankles, lightheadedness, pre-syncope, dyspnea on exertion or orthopnea Resp: Denies: dyspnea, productive cough, non-productive cough, wheezing, stridor, pain on inspiration, change in phlegm color, hemoptysis or chest congestion GI: Denies: abdominal pain, nausea, vomiting, hematemesis, coffee ground emesis, dysphagia, heartburn, diarrhea, constipation, GI cramping, change in stool character, hematochezia or melena : Denies: flank pain, difficulty voiding, dysuria, urinary frequency, urinary urgency, urinary hesitancy or hematuria Musc: Denies: neck pain, back pain, extremity pain, joint swelling, joint warmth or deformity Neuro: Denies: headache(s), numbness in extremities, weakness in extremities, sensory changes, difficulty walking, frequent falls, dizziness, vertigo, behavioral changes, Slurred speech present or seizure-like activity Psych: Denies: anxiety, depression, suicidal ideation or homicidal ideation Endo: Denies: polyuria, polydipsia, tired all the time, cold intolerance or hot flashes Gomez/Lymph: Denies: easy bruising or easy bleeding Medications/Allergies Home Medications Medication Instructions Recorded Confirmed Last Taken Type sucralfate 1 g PO TID 06/21/19 11/20/19 11/17/19 History acetaminophen [Tylenol Extra 500 - 1,000 mg PO PRN 07/10/19 11/20/19 11/18/19 History Strength] aspirin [Aspir-81] 81 mg PO DAILY 07/10/19 11/20/19 11/18/19 History metoprolol tartrate 25 mg PO BID 09/05/19 11/20/19 11/04/19 History multivitamin [Multiple Vitamins] 1 tab PO DAILY 09/05/19 11/20/19 11/04/19 History citalopram 20 mg tablet 20 mg PO QAM #90 tab 09/13/19 11/20/19 11/18/19 Rx trazodone 150 mg tablet 150 mg PO BEDTIME PRN #90 tab 09/13/19 11/20/19 11/18/19 Rx Dexilant 60 mg PO BID 10/14/19 11/20/19 11/19/19 History amlodipine 5 mg PO DAILY 10/14/19 11/20/19 11/19/19 History lorazepam [Ativan] 1 mg PO Q8H PRN #20 tab 11/03/19 11/20/19 11/17/19 Rx dicyclomine 20 mg PO QID #30 tab 11/10/19 11/20/19 Unknown Rx hydromorphone [Dilaudid] 2 mg PO Q12H PRN #14 tab 11/10/19 11/20/19 11/17/19 Rx tramadol [Ultram] 50 mg PO TID PRN 11/20/19 11/20/19 Unknown History Allergies Allergy/AdvReac Type Severity Reaction Status Date / Time baclofen Allergy Unknown Unknown Verified 11/20/19 15:12 codeine Allergy Unknown rash Verified 11/20/19 15:12 ondansetron [From Zofran] Allergy Unknown ALGY-Anaphy Verified 11/20/19 15:12 laxis metoclopramide [From Reglan] Allergy ALGY-Hives Verified 11/20/19 15:12 prochlorperazine AdvReac Unknown ADR-Irritab Verified 11/20/19 22:43 [From Compazine] le promethazine [From Phenergan] AdvReac Unknown ADR-Dry Verified 11/20/19 22:43 Mucus Membranes PFSH Acute PFSH: Medical History Anastomotic ulcer S/P gastric bypass Chronic post-traumatic stress disorder Generalized anxiety disorder Hypertension Major depressive disorder, recurrent severe without psychotic features Vomiting blood Surgical History H/O esophagogastroduodenoscopy (~06/2019) H/O: hysterectomy History of partial gastrectomy Hx of cholecystectomy S/P appendectomy Family History Mother CAD (coronary artery disease) Other Hypertension Denies family history of Anesthesia complication Bleeding disorder Social History Smoking and tobacco status: former smoker Alcohol intake: never Adopted: No Caregiver/support person: Yes Lives independently: Yes Household members: family and children Housing: House Marital status: service: No Current occupational status: employed Current occupational exposures/hazards: No Pets and animals: No History of recent travel: No Sexually active: No Current gender identity: Female Teresa/Orthodoxy: Bahai Special teresa needs: No Agree to transfusion: No Financial difficulty paying for basics: Decline to Answer Vitals/I&O/Wt Last Vital Signs Temp 98.3 F 11/20/19 12:23 Pulse 95 11/20/19 12:23 Resp 18 11/20/19 16:24 BP 119/84 11/20/19 12:23 Pulse Ox 97 11/20/19 16:24 Weight last 48 hrs Weight 74.843 kg Physical Exam Narrative: EXAM NARRATIVE: GEN: Awake, alert and oriented, no acute distress CVS: S1S2 N RS: CTA B/L Abd: Soft, nt/nd , bs+ 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 neuro 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 Data : 11/21/19 05:09 11/21/19 05:09 A&P Assessment and plan (1) Major depressive disorder, recurrent severe without psychotic features: Status: Chronic (2) Nausea & vomiting: Status: Acute (3) Opioid dependence: Status: Acute Qualifiers: Substance use status: uncomplicated Qualified Code(s): F11.20 - Opioid dependence, uncomplicated Additional A&P Information Admit to observation protonix 40mg po daily IVF NS @ 100 cc/hr bentyl for abdominal pain and nausea , states allergies to zofran and reglan continue home dose of po metoprolol continue home dose ativan to avoid withdrawal continue home dose of dilaudid to prevent withdrawal clear liquid diet no signs of acute pancreatitis at this deshaun e full code DVT ppx: low risk, freely ambulate Attestations Medical Necessity Statement*: less than 2 midnight anticipated for symptom management 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
[2019-11-20] MEDS: LORazepam 2 mg/mL INJ 1 mL 1 MG IM (19:12)
--- NOTE | 2019-11-20 20:27 | PC.NURSE ---
AT PT'S BEDSIDE FREQUENTLY S/T MULTIPLE ATTEMPTS AT IV ACCESS, DUE TO LOSING IV IN CT. PT ASKING FOR PAIN MEDS. PAIN MED GIVEN IM X'S ONE. PT POSITIONS SELF.
[2019-11-20] MEDS: sucralfate 1 gm Tablet PO (21:53)
[2019-11-21] VITALS (12 sets, daily range): BP systolic 115–133; BP diastolic 72–89; PULSE 70–107; RESP 16–20; TEMP 36.3–37.2; O2SAT 95–96
[2019-11-21] MEDS: LORazepam 2 mg/mL INJ 1 mL IM (00:37)
[2019-11-21 05:21] LABS: Basophils # 0.1 10^3/uL (0.0-0.1); Basophils % 1.2 %; Eosinophils # 0.3 10^3/uL (0.0-0.8); Eosinophils % 6.1 %; Hematocrit 42.2 % (37.0-47.0); Hemoglobin 12.4 g/dL (11.5-15.3); Lymphocytes # 1.9 10^3/uL (0.8-4.8); Mean Corpuscular HGB Conc 29.4 g/dL (30.0-36.0); Mean Corpuscular Volume 98.8 fL (81-99); Mean Platelet Volume 8.9 fL (7.4-10.4); Monocytes # 0.4 10^3/uL (0.2-0.9); Monocytes % 7.7 %; Neutrophils # 2.27 10^3/uL (1.8-7.7); Neutrophils % 45.8 %; Nucleated Red Blood Cells % 0 %; Platelet Count 269 10^3/cmm (130-400); Red Blood Count 4.27 10^6/uL (4.1-5.3); Red Cell Distribution Width 16.8 % (12.1-15.1)
[2019-11-21 05:49] LABS: Alanine Aminotransferase 18 U/L (0-33); Albumin Level 2.4 g/dL (3.5-5.2); Alkaline Phosphatase 165 IU/L (35-105); Blood Urea Nitrogen 8 mg/dL (6-20); Calcium 8.1 mg/dL (8.5-10.5); Carbon Dioxide 21 mmol/L (22-29); Chloride 107 mmol/L (98-107); Globulin 2.4 g/dL (1.3-4.6); Glomerular Filtration Rate 77.6 mL/min (90-130); Glucose 75 mg/dL (65-115); Osmolality Calculated 279 mOsm/kg (285-295); Sodium 137 mmol/L (136-145); Total Bilirubin 0.3 mg/dL (0.15-1.2); Total Protein 4.8 g/dL (6.6-8.7)
[2019-11-21 05:55] LABS: Anion Gap 13.3 (5-19); Aspartate Amino Transferase 26 U/L (0-32); Potassium 4.3 mmol/L (3.5-5.1)
[2019-11-21] MEDS: citalopram 20 mg Tablet PO (07:58)
[2019-11-21] MEDS: metoprolol tartrate 25 mg Tablet PO ×2 (08:00→18:07)
[2019-11-21] MEDS: pantoprazole DR 40 mg Tablet PO (08:00)
[2019-11-21] MEDS: amlodipine 5 mg Tablet PO (08:00)
[2019-11-21] MEDS: sucralfate 1 gm Tablet PO ×3 (08:00→22:04)
[2019-11-21] MEDS: dicyclomine 20 mg Tablet PO ×2 (10:11→22:05)
--- NOTE | 2019-11-21 14:00 | PC.CHAP ---
Pastoral Care Encounter/Spiritual Assessment Type of Contact [] Declined research project manager visit [] Patient/Family/Request visit [] Outpatient visit [] Follow-up visit [] Physician referral [] Code/Alert [x] Routine visit [] Staff referral [] Actively dying [] Patient sleeping [] Family support [] [] Out of room [] Palliative care [] [] Receiving care in room [] Pre-surgical visit [] Trauma [] Long length of stay [] ICU visit [] Other: Relational/Emotional Strength [x] Patient feels connected with others/family/visitors/staff [] Distress [] Loneliness/isolation [] Abandonment Spirituality of Patient [x] Person of Teresa [x] Attends Congregation of their Teresa [x] Believes in Prayer [] Reads Bible or Baptist materials [] There are Spiritual issues to be addressed Medical Scientist Interventions [x] Prayer [x] Active listening [x] Non-anxious presence [x] Spiritual/emotional support [] Crisis/trauma care [x] Spiritual counseling [] Bereavement support [] Provided bereavement packet [] Provided Bible/devotional materials [] Provided toy/stuffed animal, coloring book to patient or family member [] Provided Communion [] Anointing/[place] [] Salvation [x] Completed spiritual assessment [] Other: Impact on Illness or Injury [] Angry [] Fearful [] Anxious [] Often cries [] Exhaustion [] Unable to work [] Unable to attend orthodoxy [] Unable to walk/stand [] Unable to read [] Unable to drive [] Unable to eat/drink [] Unable to sleep [] Unable to be with family [] Patient intubated [x] Other: Summary Time spent with patient 5 minutes
--- NOTE | 2019-11-21 17:03 | P.PN_ITS ---
Subjective Subjective: Interval history: no iv access available for fluids, tolerating liquid diet, states still with nausea and pain, requesting dilaudid every 4 hrs, ativan every 8 hrs , c/o some diarrhea today Medications: Reviewed: Yes Vitals/I&O/Wt Last Vital Signs Temp 98.2 F 11/22/19 16:00 Pulse 76 11/22/19 16:00 Resp 15 11/22/19 16:50 BP 127/85 11/22/19 16:00 Pulse Ox 95 11/22/19 16:50 11/22/19 11/22/19 11/22/19 06:59 14:59 22:59 Intake Total 480 / 1820 120 / 120 Balance 480 / 1820 120 / 120 Physical Exam Narrative: EXAM NARRATIVE: GEN: Awake, alert and oriented, no acute distress CVS: S1S2 N RS: CTA B/L Abd: Soft, nt/nd , bs+ 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 neuro 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 Data : 11/21/19 05:09 11/21/19 05:09 A&P Assessment and plan (1) Major depressive disorder, recurrent severe without psychotic features: Status: Chronic (2) Nausea & vomiting: Status: Acute (3) Opioid dependence: Status: Acute Qualifiers: Substance use status: uncomplicated Qualified Code(s): F11.20 - Opioid dependence, uncomplicated Additional A&P Information continue observation protonix 40mg po daily unable to gain iv access in spite of multiple attempts no signs of dehydration at this time bentyl for abdominal pain and nausea , states allergies to zofran and reglan continue home dose of po metoprolol continue home dose ativan to avoid withdrawal continue home dose of dilaudid to prevent withdrawal clear liquid diet , advance as tolerated no signs of acute pancreatitis at this time C diff PCR for diarrhea suspect opioid dependence contributing to recurrent admissions- pain clinic referral on discharge, patient provided paperwork for financial assistance full code DVT ppx: low risk, freely ambulate Attestations Medical Necessity Statement*: diarrhea, slowly advancing diet 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 Microsoft Dynamics Ax Developer for Chg Fwd Diagnoses Major depressive disorder, recurrent severe without psychotic features F33.2 Nausea & vomiting R11.2 Opioid dependence F11.20 Substance use status: uncomplicated
[2019-11-22] VITALS (13 sets, daily range): BP systolic 104–132; BP diastolic 54–87; PULSE 70–90; RESP 15–20; TEMP 36.2–36.8; O2SAT 95–99
[2019-11-22] MEDS: citalopram 20 mg Tablet PO (06:43)
[2019-11-22] MEDS: pantoprazole DR 40 mg Tablet PO (10:26)
[2019-11-22] MEDS: metoprolol tartrate 25 mg Tablet PO ×2 (10:26→17:22)
[2019-11-22] MEDS: sucralfate 1 gm Tablet PO ×3 (10:26→20:03)
[2019-11-22] MEDS: amlodipine 5 mg Tablet PO (10:27)
[2019-11-22] MEDS: LORazepam 1 mg Tablet PO ×2 (15:33→21:24)
[2019-11-23] VITALS: BP 115/79; PULSE 72; RESP 20; TEMP 36.6; O2SAT 97
[2019-11-23 01:53] VITALS: RESP 18; O2SAT 98
[2019-11-23 04:00] VITALS: BP 117/82; PULSE 66; RESP 18; TEMP 37.1; O2SAT 96
[2019-11-23 06:45] VITALS: BP 122/82; PULSE 86; RESP 18; O2SAT 95
[2019-11-23] MEDS: citalopram 20 mg Tablet PO (06:46)
[2019-11-23 08:00] VITALS: BP 124/85; PULSE 62; RESP 18; TEMP 37.2; O2SAT 97
[2019-11-23] MEDS: LORazepam 1 mg Tablet PO (08:23)
[2019-11-23] MEDS: pantoprazole DR 40 mg Tablet PO (08:23)
[2019-11-23] MEDS: metoprolol tartrate 25 mg Tablet PO (08:23)
[2019-11-23] MEDS: amlodipine 5 mg Tablet PO (08:23)
[2019-11-23] MEDS: sucralfate 1 gm Tablet PO (08:23)
--- NOTE | 2019-11-23 09:00 | PM.DCS ---
Discharge Providers Date of Admission: 11/20/19 18:13 Date of Discharge: November 22, 2019 Attending Provider at Admission: Priya Ruiz MD Attending Provider at Discharge: Priya Ruiz MD Primary Care Provider: Rosi Shell NP Diagnoses at Discharge Discharge Diagnosis (1) Major depressive disorder, recurrent severe without psychotic features: Status: Chronic (2) Nausea & vomiting: Status: Acute (3) Opioid dependence: Status: Acute Qualifiers: Substance use status: uncomplicated Qualified Code(s): F11.20 - Opioid dependence, uncomplicated Reason for Visit Reason for Visit: vomiting/abd pain Hospital Course Discharge Summary: Therese Schaefer is a 43 year old female With multiple recent admissions to the hospital, History of chronic pancreatitis, gastric ulcer, opioid dependence, presenting again for abdominal pain nausea and vomiting. CT scan without evidence of new pancreatitis. Lipase not significantly elevated. She was admitted in observation and treated with home doses of opaites and benzodiazepenes. Diet was slowly advanced. She is improved. encouraged to see pain management clinic for opioid dependence, provided paperwork for finanacial assistance. Ready for discharge, however trying to arrange ride to go home. 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 Discharge Data Data Completed and Pending: Completed Studies During Hospitalization Category Date Time Status CT abdomen pelvis wo con [id number] Stat Cat Scan 11/20/19 14:15 Completed Pending at discharge Category Date Time Status Clostridioides Di fficile PCR Routin e Lab 11/22/19 17:02 Uncollected Vitals: Last Vital Signs Temp 98.2 F 11/22/19 16:00 Pulse 76 11/22/19 16:00 Resp 15 11/22/19 16:50 BP 127/85 11/22/19 16:00 Pulse Ox 95 11/22/19 16:50 Discharge Plan Discharge Patient Disposition: Home Condition: Stable Prescriptions: Continued citalopram [Celexa] 20 mg tablet 20 mg PO QAM Qty: 90 RF: 2 trazodone 150 mg tablet 150 mg PO BEDTIME PRN (Reason: sleep) Qty: 90 RF: 2 sucralfate 1 gram Tablet 1 g PO TID RF: 0 aspirin [Aspir-81] 81 mg Tablet,Delayed Release (Dr/Ec) 81 mg PO DAILY RF: 0 acetaminophen [Tylenol Extra Strength] 500 mg Tablet 500 - 1,000 mg PO PRN RF: 0 multivitamin [Multiple Vitamins] Tablet 1 tab PO DAILY RF: 0 metoprolol tartrate 25 mg Tablet 25 mg PO BID RF: 0 amlodipine 5 mg Tablet 5 mg PO DAILY RF: 0 Dexilant 60 mg capsule,biphase delayed releas 60 mg PO BID RF: 0 lorazepam [Ativan] 1 mg tablet 1 mg PO Q8H PRN (Reason: prn nausea) Qty: 20 RF: 0 hydromorphone [Dilaudid] 2 mg tablet 2 mg PO Q12H PRN (Reason: pain) Qty: 14 RF: 0 dicyclomine 20 mg tablet 20 mg PO QID Qty: 30 RF: 0 Ultram 50 mg Tablet 50 mg PO TID PRN (Reason: Pain) RF: 0 Discharge Orders: Discharge Order (Routine); Ordered 11/22/19 Ordered By: Priya Ruiz Referrals: Derrick Mckeon MD [Physician] - 4-7 days (Appt. on November 27 @ 3:15. 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
== END 2019-11-23 09:53 | disposition home or self-care (01) ==
LOC: ER 18:31 → MEDSURG 18:47
PROVIDERS: Emergency Medicine; Admitting Provider Student in an Organized Health Care Education/Training Program; PCP Nurse Practitioner Family; Visit Provider Student in an Organized Health Care Education/Training Program
DX: R11.2 Nausea with vomiting, unspecified (principal); R10.9 Unspecified abdominal pain; R19.7 Diarrhea, unspecified; I10 Essential (primary) hypertension; Z87.891 Personal history of nicotine dependence; Z79.82 Long term (current) use of aspirin; Z88.5 Allergy status to narcotic agent; F33.2 Major depressive disorder, recurrent severe without psychotic features; F11.20 Opioid dependence, uncomplicated
CPT/HCPCS: 12345; 36415; 74176; 80053; 81001; 83605; 83690; 84703; 85025; 96361; 96372; 96374; 96375; 96376; 99282; 99285; G0378; J0131; J1170; J1200; J2060; J7030; Q9967

== ENCOUNTER 2019-12-07 09:33 | Emergency (ER) | payer MEDICAID, SELFPAY ==
[2019-12-07] VITALS (10 sets, daily range): BP systolic 127–142; BP diastolic 83–95; PULSE 87–111; RESP 16–18; TEMP 36.4–36.6; O2SAT 95–100; BMI 28.1
--- NOTE | 2019-12-07 09:54 | ED_ITS ---
HPI - Abdominal Pain General: Chief Complaint: Abdominal Pain Stated Complaint: ABD PAIN/N/V Time Seen by Provider: 12/07/19 09:42 Source: patient Mode of arrival: ambulatory Limitations: no limitations History of Present Illness: HPI narrative: Patient is a 43-year-old female with a history of chronic pancreatitis here for complaints of upper abdominal pain, nausea, vomiting over the past week. Patient has been seen here at our facility several times for similar symptoms. She has multiple admits for similar symptoms. Patient tells me she does not have any type of outpatient follow-up with GI/Dr. Mckeon. Patient has not been running fevers. She has normal bowel movements. She has no other complaints at this time. MD elicited complaint: abdominal pain Location: LUQ Quality: aching and sharp Radiation: none Migration to: no migration Exacerbating factors: eating Relieving factors: nothing Associated Symptoms: Reports nausea and vomiting; Denies change in bowel habits, chills, coffee ground emesis, constipation, diarrhea, dysuria, fever(s), heartburn and hematemesis Review of Systems Const: Denies: fever(s), chills, body aches, fatigue or malaise Card: Denies: chest pain Resp: Denies: dyspnea GI: Reports: abdominal pain, nausea and vomiting; Denies: hematemesis, coffee ground emesis, heartburn, diarrhea, constipation or change in bowel habits : Denies: flank pain, difficulty voiding, dysuria, urinary frequency, urinary urgency or urinary hesitancy Musc: Denies: neck pain or back pain Skin/Breast: Denies: rash Neuro: Denies: headache(s), numbness in extremities, weakness in extremities or sensory changes PFSH ED PFSH: Medical History (Updated 12/07/19 @ 14:09 by LUCILLE Pathak) Anastomotic ulcer S/P gastric bypass Chronic post-traumatic stress disorder Generalized anxiety disorder Hypertension Major depressive disorder, recurrent severe without psychotic features Vomiting blood Surgical History H/O esophagogastroduodenoscopy (~06/2019) H/O: hysterectomy History of partial gastrectomy Hx of cholecystectomy S/P appendectomy Family History Mother CAD (coronary artery disease) Other Hypertension Denies family history of Anesthesia complication Bleeding disorder Social History Smoking and tobacco status: former smoker Alcohol intake: never Adopted: No Caregiver/support person: Yes Lives independently: Yes Household members: family and children Housing: House Marital status: service: No Current occupational status: employed Current occupational exposures/hazards: No Pets and animals: No History of recent travel: No Sexually active: No Current gender identity: Female Teresa/Christianity: Mandaeism Special teresa needs: No Agree to transfusion: No Financial difficulty paying for basics: Decline to Answer Physical Exam Const: COMMON NORMALS: no acute distress, average body habitus, patient oriented x3, no limitations, healthy appearing, alert and well nourished HENMT: COMMON NORMALS: normocephalic and atraumatic HEAD & SCALP: normocephalic and atraumatic Resp: COMMON NORMALS: normal respiratory effort and clear to auscultation bilaterally AUSCULTATION: clear to auscultation bilaterally Cardio: COMMON NORMALS: regular rate and regular rhythm RATE: regular rate RHYTHM: regular rhythm GI: COMMON NORMALS: Normal to inspection, nondistended, normoactive bowel sounds present, Soft to palpation, No hepatosplenomegaly present and no masses PALPATION: Yes Soft to palpation, Yes Tenderness to palpation present (GI) (epigastric, LUQ) and Yes No hepatosplenomegaly present Extremity: GENERAL: Yes normal exam except as noted Neuro: COMMON NORMALS: patient oriented x3 SENSORIUM/ORIENTATION: Yes alert Skin: COMMON NORMALS: no rashes or lesions noted GENERAL SKIN EXAM: no rashes or lesions noted Course Vital Signs: Vital signs: Vital Signs Temperature 97.8 F 12/07/19 14:23 Pulse Rate 87 12/07/19 14:23 Respiratory Rate 16 12/07/19 14:23 Blood Pressure 142/95 12/07/19 14:23 Pulse Oximetry 96 12/07/19 14:23 MDM - Abdominal Pain MDM Narrative: Medical decision making narrative: After reviewing patient's last hospitalization and discharge instructions she was set up with an appointment with Dr. Mckeon for 11/27. She tells me she was unaware of this appointment as she did not even look at my discharge paperwork . Patient's lipase here today is normal. She does have some mildly elevated LFTs. She is status post cholecystectomy. At this time patient symptoms are consistent with her chronic upper abdominal pain. I do not feel emergent CT imaging is warranted especially given the amount of CT scans she has had in the past. She is feeling better after medications given here. Lab Data: Labs: Lab Results 12/07/19 12/07/19 12/07/19 Range/Units 10:10 10:14 10:16 WBC Cancelled Corrected WBC Cancelled RBC Cancelled Hgb Cancelled Hct Cancelled MCV Cancelled MCH Cancelled MCHC Cancelled RDW Cancelled Plt Count Cancelled MPV Cancelled Gran % Cancelled Neut % (Auto) Cancelled Lymph % (Auto) Cancelled [place] % (Auto) Cancelled Eos % (Auto) Cancelled Baso % (Auto) Cancelled Neut # (Auto) Cancelled Lymph # (Auto) Cancelled [place] # (Auto) Cancelled Eos # (Auto) Cancelled Baso # (Auto) Cancelled Absolute Gran (aut o) Cancelled Nucleated RBC % (a uto) Cancelled Nucleated RBCs # Cancelled Sodium (136-145) mmol/L Potassium (3.5-5.1) mmol/L Chloride (98-107) mmol/L Carbon Dioxide (22-29) mmol/L Anion Gap (5-19) BUN (6-20) mg/dL Creatinine (0.5-0.9) mg/dL GFR Calculation (90-130) mL/min Glucose (65-115) mg/dL Calculated Osmolal ity (285-295) mOsm/k g Calcium (8.5-10.5) mg/dL Total Bilirubin (0.15-1.2) mg/dL AST (0-32) U/L ALT (0-33) U/L Alkaline Phosphata se (35-105) IU/L Total Protein (6.6-8.7) g/dL Albumin (3.5-5.2) g/dL Globulin (1.3-4.6) g/dL Lipase (13-60) U/L Urine Color Straw (Yellow) Urine Appearance Sl hazy (CLEAR) Urine pH 5 (5-7) Ur Specific Gravit y 1.020 (1.005-1.030) Urine Protein Neg (Negative) Urine Glucose (UA) Norm (Normal) Urine Ketones Negative (Negative) Urine Blood Neg (Negative) Urine Nitrate Negative (Negative) Urine Bilirubin Neg (NEGATIVE) Urine Urobilinogen Norm (Negative) mg/dL Ur Leukocyte Stephanie ase 1+ H (Negative) Urine RBC None (0-2) /hpf Urine WBC 10-15 H (0-5) /hpf Ur Squamous Epith Cells 5-10 H (0-5) Amorphous Sediment Not Reportable Urine Bacteria Trace (NONE) Urine Opiates Scre en Negative (Negative) ng/mL Ur Barbiturates Sc reen Negative (Negative) ng/mL Ur Phencyclidine S crn Negative (Negative) ng/mL Ur Amphetamines Sc reen Negative (Negative) ng/mL U Benzodiazepines Scrn Positive H (Negative) ng/mL Urine Cocaine Scre en Negative (Negative) ng/mL U Marijuana (THC) Screen Negative (Negative) ng/mL 12/07/19 12/07/19 Range/Units 10:16 10:50 WBC 5.1 Corrected WBC RBC 4.19 Hgb 12.6 Hct 40.7 MCV 97.1 MCH 30.1 MCHC 31.0 RDW 17.5 H Plt Count 264 MPV 8.7 Gran % Neut % (Auto) 75.2 Lymph % (Auto) 17.9 [place] % (Auto) 3.7 Eos % (Auto) 1.8 Baso % (Auto) 0.8 Neut # (Auto) 3.82 Lymph # (Auto) 0.9 [place] # (Auto) 0.2 Eos # (Auto) 0.1 Baso # (Auto) 0.0 Absolute Gran (aut o) Nucleated RBC % (a uto) 0 Nucleated RBCs # 0.0 Sodium 138 (136-145) mmol/L Potassium 4.1 (3.5-5.1) mmol/L Chloride 112 H (98-107) mmol/L Carbon Dioxide 15 L (22-29) mmol/L Anion Gap 15.1 (5-19) BUN 6 (6-20) mg/dL Creatinine 0.9 (0.5-0.9) mg/dL GFR Calculation 67.7 L (90-130) mL/min Glucose 144 H (65-115) mg/dL Calculated Osmolal ity 284 L (285-295) mOsm/k g Calcium 8.1 L (8.5-10.5) mg/dL Total Bilirubin 0.4 (0.15-1.2) mg/dL AST 51 H (0-32) U/L ALT 34 H (0-33) U/L Alkaline Phosphata se 189 H (35-105) IU/L Total Protein 4.5 L (6.6-8.7) g/dL Albumin 2.3 L (3.5-5.2) g/dL Globulin 2.2 (1.3-4.6) g/dL Lipase 32 (13-60) U/L Urine Color (Yellow) Urine Appearance (CLEAR) Urine pH (5-7) Ur Specific Gravit y (1.005-1.030) Urine Protein (Negative) Urine Glucose (UA) (Normal) Urine Ketones (Negative) Urine Blood (Negative) Urine Nitrate (Negative) Urine Bilirubin (NEGATIVE) Urine Urobilinogen (Negative) mg/dL Ur Leukocyte Stephanie ase (Negative) Urine RBC (0-2) /hpf Urine WBC (0-5) /hpf Ur Squamous Epith Cells (0-5) Amorphous Sediment Urine Bacteria (NONE) Urine Opiates Scre en (Negative) ng/mL Ur Barbiturates Sc reen (Negative) ng/mL Ur Phencyclidine S crn (Negative) ng/mL Ur Amphetamines Sc reen (Negative) ng/mL U Benzodiazepines Scrn (Negative) ng/mL Urine Cocaine Scre en (Negative) ng/mL U Marijuana (THC) Screen (Negative) ng/mL Discharge Plan Discharge Patient Disposition: Home Clinical Impression: Abdominal pain, chronic, epigastric Condition: Stable Prescriptions: Continued Ultram 50 mg Tablet 50 mg PO BID PRN (Reason: Pain) Qty: 14 RF: 0 No Action citalopram [Celexa] 20 mg tablet 20 mg PO QAM Qty: 90 RF: 2 trazodone 150 mg tablet 150 mg PO BEDTIME PRN (Reason: sleep) Qty: 90 RF: 2 sucralfate 1 gram Tablet 1 g PO TID RF: 0 aspirin [Aspir-81] 81 mg Tablet,Delayed Release (Dr/Ec) 81 mg PO DAILY RF: 0 acetaminophen [Tylenol Extra Strength] 500 mg Tablet 500 - 1,000 mg PO Q6H PRN (Reason: Pain) RF: 0 multivitamin [Multiple Vitamins] Tablet 1 tab PO DAILY RF: 0 metoprolol tartrate 25 mg Tablet 25 mg PO BID RF: 0 Dexilant 60 mg capsule,biphase delayed releas 60 mg PO BID RF: 0 dicyclomine 20 mg tablet 20 mg PO QID Qty: 30 RF: 0 hydromorphone [Dilaudid] 2 mg tablet 2 mg PO Q12H PRN (Reason: pain) 7 Days Qty: 14 RF: 0 lorazepam [Ativan] 1 mg tablet 1 mg PO Q8H PRN (Reason: prn nausea) 7 Days Qty: 21 RF: 0 Discharge Orders: Discharge Order (Routine); Ordered 12/07/19 Ordered By: Hawa Alexandre Referrals: Derrick Mckeon MD [Physician] - Rosi Shell NP [Primary Care Provider] - Patient Instructions: Abdominal Pain (ED) Activity Restrictions/Additional Instructions: You need to follow-up with your primary care doctor to obtain referral to pain management. Case management should contact you to set you up with an appointment with Dr. Mckeon. You may return to the emergency department for worsening abdominal pain, nausea, vomiting, any other concerns you may have. Discharge Date/Time: 12/07/19 14:25 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 of Care Code ED Project Inspector for Chg Fwd Exam Detailed
[2019-12-07 10:43] LABS: Alanine Aminotransferase 34 U/L (0-33); Albumin Level 2.3 g/dL (3.5-5.2); Alkaline Phosphatase 189 IU/L (35-105); Aspartate Amino Transferase 51 U/L (0-32); Blood Urea Nitrogen 6 mg/dL (6-20); Calcium 8.1 mg/dL (8.5-10.5); Carbon Dioxide 15 mmol/L (22-29); Chloride 112 mmol/L (98-107); Globulin 2.2 g/dL (1.3-4.6); Glomerular Filtration Rate 67.7 mL/min (90-130); Glucose 144 mg/dL (65-115); Lipase 32 U/L (13-60); Osmolality Calculated 284 mOsm/kg (285-295); Sodium 138 mmol/L (136-145); Total Bilirubin 0.4 mg/dL (0.15-1.2); Total Protein 4.5 g/dL (6.6-8.7)
[2019-12-07 10:54] LABS: Urine Appearance SL Hazy (CLEAR); Urine Color Straw (Yellow)
[2019-12-07 10:55] LABS: Add Urine Microscopic? YES; Bilirubin Urine Neg (NEGATIVE); Blood Urine Neg (Negative); Glucose Urine UA Norm (Normal); Ketones Urine Negative (Negative); Leukocyte Esterase Urine 1+ (Negative); Nitrate Urine Negative (Negative); Protein Urine Neg (Negative); Urobilinogen Urine Norm (Negative); pH Urine 5 (5-7)
[2019-12-07 10:55] LABS: Anion Gap 15.1 (5-19); Potassium 4.1 mmol/L (3.5-5.1)
--- NOTE | 2019-12-07 10:55 | ED_ITS ---
HPI - Abdominal Pain General: Chief Complaint: Abdominal Pain Stated Complaint: ABD PAIN/N/V Time Seen by Provider: 12/07/19 09:42 Source: patient Mode of arrival: ambulatory Limitations: no limitations History of Present Illness: MD elicited complaint: abdominal pain Quality: aching and sharp Migration to: no migration Exacerbating factors: eating Relieving factors: nothing PFSH ED PFSH: Medical History (Updated 11/22/19 @ 17:01 by Priay Ruiz MD) Anastomotic ulcer S/P gastric bypass Chronic post-traumatic stress disorder Generalized anxiety disorder Hypertension Major depressive disorder, recurrent severe without psychotic features Vomiting blood Surgical History H/O esophagogastroduodenoscopy (~06/2019) H/O: hysterectomy History of partial gastrectomy Hx of cholecystectomy S/P appendectomy Family History Mother CAD (coronary artery disease) Other Hypertension Denies family history of Anesthesia complication Bleeding disorder Social History Smoking and tobacco status: former smoker Alcohol intake: never Adopted: No Caregiver/support person: Yes Lives independently: Yes Household members: family and children Housing: House Marital status: service: No Current occupational status: employed Current occupational exposures/hazards: No Pets and animals: No History of recent travel: No Sexually active: No Current gender identity: Female Teresa/Adventist: Zoroastrian Special teresa needs: No Agree to transfusion: No Financial difficulty paying for basics: Decline to Answer Procedures EJ/Peripheral Line Arm R: Time Out Performed: Yes Skin Cleansed in Sterile Fashion: Yes Size (gauge): 18 IV Secured and Dressing Applied: Yes Patient Tolerated Procedure: well Additional Comments: Ultrasound utilized throughout procedure. IV was visualized entering the vein. Good blood return, peripheral catheter was placed and flushed with no signs of complication or infiltration. Course Vital Signs: Vital signs: Vital Signs Temperature 97.5 F L 12/07/19 09:40 Pulse Rate 104 H 12/07/19 10:32 Respiratory Rate 18 12/07/19 10:32 Blood Pressure 127/86 12/07/19 10:32 Pulse Oximetry 97 12/07/19 10:32 MDM - Abdominal Pain Lab Data: Labs: Lab Results 12/07/19 12/07/19 Range/Units 10:16 10:16 WBC Cancelled Corrected WBC Cancelled RBC Cancelled Hgb Cancelled Hct Cancelled MCV Cancelled MCH Cancelled MCHC Cancelled RDW Cancelled Plt Count Cancelled MPV Cancelled Gran % Cancelled Neut % (Auto) Cancelled Lymph % (Auto) Cancelled [place] % (Auto) Cancelled Eos % (Auto) Cancelled Baso % (Auto) Cancelled Neut # (Auto) Cancelled Lymph # (Auto) Cancelled [place] # (Auto) Cancelled Eos # (Auto) Cancelled Baso # (Auto) Cancelled Absolute Gran (aut o) Cancelled Nucleated RBC % (a uto) Cancelled Nucleated RBCs # Cancelled Sodium 138 (136-145) mmol/L BUN 6 (6-20) mg/dL Creatinine 0.9 (0.5-0.9) mg/dL Total Bilirubin 0.4 (0.15-1.2) mg/dL Globulin 2.2 (1.3-4.6) g/dL Lipase 32 (13-60) U/L Discharge Plan Discharge Prescriptions: No Action citalopram [Celexa] 20 mg tablet 20 mg PO QAM Qty: 90 RF: 2 trazodone 150 mg tablet 150 mg PO BEDTIME PRN (Reason: sleep) Qty: 90 RF: 2 lorazepam [Ativan] 1 mg tablet 1 mg PO TID PRN (Reason: anxiety) Qty: 90 RF: 1 sucralfate 1 gram Tablet 1 g PO TID RF: 0 aspirin [Aspir-81] 81 mg Tablet,Delayed Release (Dr/Ec) 81 mg PO DAILY RF: 0 acetaminophen [Tylenol Extra Strength] 500 mg Tablet 500 - 1,000 mg PO PRN RF: 0 multivitamin [Multiple Vitamins] Tablet 1 tab PO DAILY RF: 0 metoprolol tartrate 25 mg Tablet 25 mg PO BID RF: 0 amlodipine 5 mg Tablet 5 mg PO DAILY RF: 0 Dexilant 60 mg capsule,biphase delayed releas 60 mg PO BID RF: 0 dicyclomine 20 mg tablet 20 mg PO QID Qty: 30 RF: 0 Ultram 50 mg Tablet 50 mg PO BID PRN (Reason: Pain) 14 Days Qty: 28 RF: 0 Dilaudid 2 mg tablet 2 mg PO Q12H PRN (Reason: pain) 7 Days Qty: 14 RF: 0 Ativan 1 mg tablet 1 mg PO Q8H PRN (Reason: prn nausea) 7 Days Qty: 21 RF: 0 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 of Care Code ED Shared Services Manager for Kimberly Gilman
[2019-12-07 10:56] LABS: Add Urine Culture? No; Bacteria Urine TRACE
[2019-12-07 11:02] LABS: Basophils % 0.8 %; Eosinophils # 0.1 10^3/uL (0.0-0.8); Eosinophils % 1.8 %; Hematocrit 40.7 % (37.0-47.0); Hemoglobin 12.6 g/dL (11.5-15.3); Lymphocytes # 0.9 10^3/uL (0.8-4.8); Lymphocytes % 17.9 %; Mean Corpuscular Hemoglobin 30.1 pg (28.0-34.0); Mean Corpuscular Volume 97.1 fL (81-99); Mean Platelet Volume 8.7 fL (7.4-10.4); Monocytes # 0.2 10^3/uL (0.2-0.9); Monocytes % 3.7 %; Neutrophils # 3.82 10^3/uL (1.8-7.7); Neutrophils % 75.2 %; Nucleated Red Blood Cells % 0 %; Platelet Count 264 10^3/cmm (130-400); Red Blood Count 4.19 10^6/uL (4.1-5.3); Red Cell Distribution Width 17.5 % (12.1-15.1); White Blood Count 5.1 10^3/uL (4.0-10.0)
[2019-12-07] MEDS: haloperidol inj 5 mg/mL INJ 1 mL IVP (11:29)
[2019-12-07] MEDS: morphine 4 mg/mL SDV 1 mL IVP (11:29)
[2019-12-07] MEDS: sodium chloride 0.9% 1,000 ML 999 ML IV (11:30)
[2019-12-07] MEDS: lidocaine 2% viscous 15 ML, aluminum-mag hydrox-simethicon 30 ML, sucralfate oral liq 1 GM PO (11:30)
[2019-12-07] MEDS: LORazepam 2 mg/mL INJ 1 mL 1 MG IVP (11:30)
[2019-12-07 11:56] LABS: Amphetamines Screen Urine Negative (Negative); Barbiturates Screen Urine Negative (Negative); Benzodiazepines Screen Urine Positive (Negative); Cocaine Screen Urine Negative (Negative); Opiate Screen Urine Negative (Negative); PCP Screen Urine Negative (Negative); THC Screen Urine Negative (Negative)
--- NOTE | 2019-12-07 12:06 | PC.NURSE ---
Laying on Left side. States pain is not better
[2019-12-07] MEDS: HYDROmorphone 1 mg/mL INJ 1 mL 0.5 MG IVP (12:56)
--- NOTE | 2019-12-07 13:34 | PC.NURSE ---
IV infiltrated, informed Hawa Alexandre NP. Dc'd Frantz and NS. New order for Fentanyl IM
[2019-12-07] MEDS: fentaNYL 50 mcg/mL INJ 2mL 75 MCG XX (13:51)
--- NOTE | 2019-12-10 10:41 | DCPLANNER ---
sales and marketing manager had message to schedule a follow up appointment for patient with Dr. Mckeon. sales and marketing manager called the office of Dr. Mckeon, spoke with Ines, a follow up appointment was scheduled for , December 19, 2019 at 3:[address] Mckeon. Clinic will call patient with appointment information.
--- NOTE | 2020-01-03 10:53 | DCPLANNER ---
Patient had a follow up appointment scheduled with Dr. Mckeon - patient did attend appointment.
== END 2019-12-07 14:25 | disposition home or self-care (01) ==
PROVIDERS: Emergency Provider Physician Assistant; PCP Nurse Practitioner Family
DX: G89.29 Other chronic pain (principal); R10.13 Epigastric pain; Z79.82 Long term (current) use of aspirin; I10 Essential (primary) hypertension; Z87.891 Personal history of nicotine dependence
CPT/HCPCS: 12345; 36415; 80053; 80306; 81001; 83690; 85025; 96361; 96374; 96375; 99283; 99284; J1170; J1630; J2060; J2270; J3010; J7030

== ENCOUNTER 2019-12-13 13:16 | Inpatient (IN) | payer MEDICAID, SELFPAY ==
[2019-12-13] VITALS (15 sets, daily range): BP systolic 130–168; BP diastolic 84–116; PULSE 19–123; RESP 16–123; TEMP 36.6–36.9; O2SAT 95–98; BMI 28.1
--- NOTE | 2019-12-13 13:48 | W.ED.ABDPA2 ---
HPI - Abdominal Pain General: Chief Complaint: Abdominal Pain Stated Complaint: vomiting/sob Time Seen by Provider: 12/13/19 13:36 History of Present Illness: HPI narrative: This patient is a 43-year-old female who presents today with abdominal pain. She has a history of chronic abdominal pain related to chronic pancreatitis. She said this is worse than her normal pain but otherwise no different. She said dry heaves and loose stools. She said she has been able to keep anything down for the past couple of days. The symptoms have been getting worse for over a week. She is out of Ativan which is what she normally takes at home for nausea and vomiting. MD elicited complaint: abdominal pain Associated Symptoms: Reports nausea and vomiting; Denies fever(s) Review of Systems Const: Reports: malaise; Denies: fever(s) Card: Reports: other (Chest tightness) Resp: Denies: productive cough or non-productive cough GI: Reports: abdominal pain, nausea and vomiting : Reports: oliguria PFSH ED PFSH: Medical History Anastomotic ulcer S/P gastric bypass Chronic post-traumatic stress disorder Generalized anxiety disorder Hypertension Major depressive disorder, recurrent severe without psychotic features Vomiting blood Surgical History H/O esophagogastroduodenoscopy (~06/2019) H/O: hysterectomy History of partial gastrectomy Hx of cholecystectomy S/P appendectomy Family History Mother CAD (coronary artery disease) Other Hypertension Denies family history of Anesthesia complication Bleeding disorder Social History Smoking and tobacco status: former smoker Alcohol intake: never Adopted: No Caregiver/support person: Yes Lives independently: Yes Household members: family and children Housing: House Marital status: service: No Current occupational status: employed Current occupational exposures/hazards: No Pets and animals: No History of recent travel: No Sexually active: No Current gender identity: Female Teresa/Mandaeism: Roman Catholic Special teresa needs: No Agree to transfusion: No Financial difficulty paying for basics: Decline to Answer Physical Exam Const: COMMON NORMALS: patient oriented x3, no limitations and alert GENERAL APPEARANCE: cooperative HENMT: HEAD & SCALP: normal to inspection FACE & SINUS: normal facial exam Eye: GENERAL EYE: appearance normal, both eyes and all related structures Neck/C-Spine: COMMON NORMALS: supple, no meningeal signs and no JVD Chest: COMMONS NORMALS: normal inspection of the chest Resp: COMMON NORMALS: normal respiratory effort, No use of accessory muscles and clear to auscultation bilaterally AUSCULTATION: clear to auscultation bilaterally Cardio: COMMON NORMALS: no JVD, regular rate, regular rhythm and No murmurs present (Cardio) RATE: regular rate RHYTHM: regular rhythm GI: COMMON NORMALS: Normal to inspection, nondistended, normoactive bowel sounds present and Soft to palpation INSPECTION: Yes normal to inspection AUSCULTATION: Yes normoactive bowel sounds PALPATION: Yes Soft to palpation and Yes Tenderness to palpation present (GI) (Diffusely tender to light palpation anywhere) Back/Pelvis: COMMON NORMALS: thoracic and lumbar spine normal to inspection Extremity: COMMON NORMALS: normal to inspection Neuro: COMMON NORMALS: patient oriented x3, moves all extremities, no focal motor deficits and no sensory deficits noted SENSORIUM/ORIENTATION: Yes alert MENINGEAL SIGNS: Yes no meningeal signs Psych: COMMON NORMALS: mental status grossly normal, cooperative and normal affect Skin: COMMON NORMALS: no rashes or lesions noted and turgor normal GENERAL SKIN EXAM: no rashes or lesions noted and turgor normal Course ED course: This patient has a history of chronic pancreatitis and has frequent admissions to the ED into the hospital. She was treated for pain and nausea in the ED and given several liters of fluid. She still very uncomfortable and feels like she will not feel a tolerating p.o. For that reason she will be admitted to the hospital for further management. Vital Signs: Vital signs: Vital Signs Temperature 98.1 F 12/15/19 04:00 Pulse Rate 72 12/15/19 04:00 Respiratory Rate 16 12/15/19 06:05 Blood Pressure 145/98 12/15/19 04:00 Pulse Oximetry 99 12/15/19 04:00 MDM - Abdominal Pain Lab Data: Labs: Lab Results 12/13/19 12/13/19 12/13/19 Range/Units 14:19 14:19 14:57 WBC 9.1 (4.0-10.0) 10^3/ uL RBC 4.13 (4.1-5.3) 10^6/u L Hgb 12.7 (11.5-15.3) g/dL Hct 40.3 (37.0-47.0) % MCV 97.6 (81-99) fL MCH 30.8 (28.0-34.0) pg MCHC 31.5 (30.0-36.0) g/dL RDW 18.3 H (12.1-15.1) % Plt Count 247 (130-400) 10^3/c mm MPV 9.9 (7.4-10.4) fL Neut % (Auto) 85.0 % Lymph % (Auto) 7.9 % [place] % (Auto) 6.4 % Eos % (Auto) 0.2 % Baso % (Auto) 0.3 % Neut # (Auto) 7.74 H (1.8-7.7) 10^3/u L Lymph # (Auto) 0.7 L (0.8-4.8) 10^3/u L [place] # (Auto) 0.6 (0.2-0.9) 10^3/u L Eos # (Auto) 0.0 (0.0-0.8) 10^3/u L Baso # (Auto) 0.0 (0.0-0.1) 10^3/u L Nucleated RBC % (a uto) 0 % Nucleated RBCs # 0.0 /100WBC Sodium 139 (136-145) mmol/L Potassium 4.0 (3.5-5.1) mmol/L Chloride 110 H (98-107) mmol/L Carbon Dioxide 19 L (22-29) mmol/L Anion Gap 14.0 (5-19) BUN 6 (6-20) mg/dL Creatinine 0.7 (0.5-0.9) mg/dL GFR Calculation 90.5 (90-130) mL/min Glucose 121 H (65-115) mg/dL Calculated Osmolal ity 285 (285-295) mOsm/k g Calcium 8.2 L (8.5-10.5) mg/dL Total Bilirubin 0.5 (0.15-1.2) mg/dL AST 33 H (0-32) U/L ALT 32 (0-33) U/L Alkaline Phosphata se 184 H (35-105) IU/L Total Protein 4.8 L (6.6-8.7) g/dL Albumin 2.6 L (3.5-5.2) g/dL Globulin 2.2 (1.3-4.6) g/dL Lipase 110 H (13-60) U/L Urine Color Yellow (Yellow) Urine Appearance Clear (CLEAR) Urine pH 5 (5-7) Ur Specific Gravit y 1.025 (1.005-1.030) Urine Protein Neg (Negative) Urine Glucose (UA) Norm (Normal) Urine Ketones Negative (Negative) Urine Blood Neg (Negative) Urine Nitrate Negative (Negative) Urine Bilirubin Neg (Negative) Urine Urobilinogen Neg (Negative) mg/dL Ur Leukocyte Stephanie ase Negative (Negative) Discharge Plan Discharge Patient Disposition: Admitted As Inpatient Admit Provider: Kelsea Hernandez Referrals: Derrick Mckeon MD [Physician] - Discharge Date/Time: 12/13/19 22:52 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 of Care Code ED Deck Cadet for Chg Fwd Exam Comprehensive
[2019-12-13] MEDS: LORazepam 2 mg/mL INJ 1 mL 1 MG IVP ×2 (14:06→17:52)
[2019-12-13] MEDS: sodium chloride 0.9% 1,000 ML 999 ML IV (14:06)
[2019-12-13] MEDS: HYDROmorphone 1 mg/mL INJ 1 mL IVP ×3 (14:06→21:53)
[2019-12-13 14:30] LABS: Basophils % 0.3 %; Eosinophils % 0.2 %; Hematocrit 40.3 % (37.0-47.0); Hemoglobin 12.7 g/dL (11.5-15.3); Lymphocytes # 0.7 10^3/uL (0.8-4.8); Lymphocytes % 7.9 %; Mean Corpuscular HGB Conc 31.5 g/dL (30.0-36.0); Mean Corpuscular Hemoglobin 30.8 pg (28.0-34.0); Mean Corpuscular Volume 97.6 fL (81-99); Mean Platelet Volume 9.9 fL (7.4-10.4); Monocytes # 0.6 10^3/uL (0.2-0.9); Monocytes % 6.4 %; Neutrophils # 7.74 10^3/uL (1.8-7.7); Nucleated Red Blood Cells % 0 %; Platelet Count 247 10^3/cmm (130-400); Red Blood Count 4.13 10^6/uL (4.1-5.3); Red Cell Distribution Width 18.3 % (12.1-15.1); White Blood Count 9.1 10^3/uL (4.0-10.0)
[2019-12-13 15:38] LABS: Add Urine Microscopic? NO
[2019-12-13 15:41] LABS: Bilirubin Urine Neg (Negative); Blood Urine Neg (Negative); Glucose Urine UA Norm (Normal); Ketones Urine Negative (Negative); Leukocyte Esterase Urine Negative (Negative); Nitrate Urine Negative (Negative); Protein Urine Neg (Negative); Specific Gravity, Urine 1.025 (1.005-1.030); Urine Appearance Clear (CLEAR); Urine Color Yellow (Yellow); Urobilinogen Urine Neg (Negative); pH Urine 5 (5-7)
[2019-12-13] MEDS: lactated ringers 1,000 ML 999 ML IV (17:52)
[2019-12-13 18:17] LABS: Chloride 110 mmol/L (98-107); Sodium 139 mmol/L (136-145)
[2019-12-13 18:33] LABS: Alanine Aminotransferase 32 U/L (0-33); Albumin Level 2.6 g/dL (3.5-5.2); Alkaline Phosphatase 184 IU/L (35-105); Aspartate Amino Transferase 33 U/L (0-32); Glucose 121 mg/dL (65-115)
[2019-12-13 18:53] LABS: Carbon Dioxide 19 mmol/L (22-29); Lipase 110 U/L (13-60)
[2019-12-13 19:32] LABS: Globulin 2.2 g/dL (1.3-4.6); Total Bilirubin 0.5 mg/dL (0.15-1.2); Total Protein 4.8 g/dL (6.6-8.7)
[2019-12-13 19:39] LABS: Blood Urea Nitrogen 6 mg/dL (6-20); Calcium 8.2 mg/dL (8.5-10.5); Glomerular Filtration Rate 90.5 mL/min (90-130); Osmolality Calculated 285 mOsm/kg (285-295)
[2019-12-13] MEDS: promethazine 25 mg/mL SDV 1 mL IM (21:53)
--- NOTE | 2019-12-13 22:16 | P.HP_ITS ---
Providers/Chief Complaint Admitting Physician: Kelsea Hernandez MD Primary Care Provider: Rosi Shell NP Chief Complaint: vomiting/sob History of Present Illness Therese Schaefer is a 43 year old female with PMHx noted below presents with complaints of nausea, vomiting, abdominal discomfort and inability to tolerate oral intake since this last weekend. Patient has been admitted to our facility on multiple occasions due to similar symptoms, attributed to pancreatitis. She is known to me from previous admission. She is laying on the stretcher in the ER in a position, overtly uncomfortable. Has received IV fluid hydration, 3 mg of IV Dilaudid, antiemetics with continued discomfort. Work-up so far shows a normal CBC, normal electrolytes, normal renal function, AST of 33, ALP of 184, lipase of 110, negative urinalysis. She was last seen in the ER on 12/06 for similar symptoms and was discharged home at that time. Vital signs are stable other than noted tachycardia likely secondary to pain. Due to noted inability to tolerate oral intake and need for more aggressive pain control patient will be admitted. Review of Systems Const: Reports: chills, change in appetite (decreased appetite) and fatigue; Denies: fever(s) Eyes: Denies: change in vision ENMT: Reports: dry mouth Card: Denies: chest pain, swelling of feet/ankles or lightheadedness Resp: Denies: dyspnea, productive cough or non-productive cough GI: Reports: abdominal pain, nausea, vomiting, diarrhea and bloating; Denies: hematemesis or hematochezia : Reports: oliguria; Denies: difficulty voiding, dysuria or hematuria Musc: Denies: back pain Skin/Breast: Denies: rash Neuro: Reports: weakness in extremities; Denies: numbness in extremities Psych: Denies: anxiety Medications/Allergies Home Medications Medication Instructions Recorded Confirmed Last Taken Type sucralfate 1 g PO TID 06/21/19 12/14/19 2 Days Ago History ~12/12/19 acetaminophen [Tylenol Extra 500 - 1,000 mg PO Q6H PRN 07/10/19 12/14/19 3 Days Ago History Strength] ~12/11/19 aspirin [Aspir-81] 81 mg PO DAILY 07/10/19 12/14/19 2 Days Ago History ~12/12/19 metoprolol tartrate 25 mg PO BID 09/05/19 12/14/19 2 Days Ago History ~12/12/19 multivitamin [Multiple Vitamins] 1 tab PO DAILY 09/05/19 12/14/19 2 Days Ago History ~12/12/19 citalopram 20 mg tablet 20 mg PO QAM #90 tab 09/13/19 12/14/19 1 Day Ago Rx ~12/13/19 trazodone 150 mg tablet 150 mg PO BEDTIME PRN #90 tab 09/13/19 12/14/19 2 Days Ago Rx ~12/12/19 Dexilant 60 mg PO BID 10/14/19 12/14/19 2 Days Ago History ~12/12/19 dicyclomine 20 mg PO QID #30 tab 11/10/19 12/14/19 2 Days Ago Rx ~12/12/19 lorazepam [Ativan] 1 mg PO Q8H PRN 7 Days #21 tab 11/23/19 12/14/19 2 Days Ago Rx ~12/12/19 tramadol [Ultram] 50 mg PO BID PRN #14 tab 12/07/19 12/14/19 2 Days Ago Rx ~12/12/19 Allergies Allergy/AdvReac Type Severity Reaction Status Date / Time baclofen Allergy Unknown Unknown Verified 12/07/19 09:42 codeine Allergy Unknown rash Verified 12/07/19 09:42 ondansetron [From Zofran] Allergy Unknown ALGY-Anaphy Verified 12/07/19 09:42 laxis metoclopramide [From Reglan] Allergy ALGY-Hives Verified 12/07/19 09:42 prochlorperazine AdvReac Unknown ADR-Irritab Verified 12/07/19 09:42 [From Compazine] le promethazine [From Phenergan] AdvReac Unknown ADR-Dry Verified 12/07/19 09:42 Mucus Membranes PFSH Acute PFSH: Medical History Anastomotic ulcer S/P gastric bypass Chronic post-traumatic stress disorder Generalized anxiety disorder Hypertension Major depressive disorder, recurrent severe without psychotic features Vomiting blood Surgical History H/O esophagogastroduodenoscopy (~06/2019) H/O: hysterectomy History of partial gastrectomy Hx of cholecystectomy S/P appendectomy Family History Mother CAD (coronary artery disease) Other Hypertension Denies family history of Anesthesia complication Bleeding disorder Social History Smoking and tobacco status: former smoker Alcohol intake: never Adopted: No Caregiver/support person: Yes Lives independently: Yes Household members: family and children Housing: House Marital status: service: No Current occupational status: employed Current occupational exposures/hazards: No Pets and animals: No History of recent travel: No Sexually active: No Current gender identity: Female Teresa/Baptism: Judaism Special teresa needs: No Agree to transfusion: No Financial difficulty paying for basics: Decline to Answer Vitals/I&O/Wt Last Vital Signs Temp 97.8 F 12/13/19 13:28 Pulse 107 H 12/13/19 22:00 Resp 18 12/13/19 22:00 BP 140/95 12/13/19 22:00 Pulse Ox 95 12/13/19 22:00 12/13/19 12/13/19 12/13/19 06:59 14:59 22:59 Intake Total 1999 Balance 1999 Weight last 48 hrs Weight 74.389 kg Physical Exam Const: COMMON NORMALS: patient oriented x3 and alert GENERAL APPEARANCE: cooperative and comfortable NUTRITIONAL APPEARANCE: obese ORIENTATION/CONSCIOUSNESS: Yes awake OTHER: -Laying in position on stretcher HENMT: COMMON NORMALS: normocephalic, atraumatic and hearing grossly normal bilaterally HEAD & SCALP: normocephalic and atraumatic MOUTH: moist mucous membranes abnormal Details: parched Eye: COMMON NORMALS: Equal, round and reactive pupils present, EOMs intact bilaterally and conjunctivae normal CONJUNCTIVA: Yes conjunctivae normal PUPIL: Yes Equal, round and reactive pupils present Neck/C-Spine: COMMON NORMALS: full ROM GENERAL: Yes normal visual inspection and Yes trachea midline Resp: COMMON NORMALS: normal respiratory effort, No retractions, No use of accessory muscles and clear to auscultation bilaterally EFFORT & INSPECTION: Yes able to speak in complete sentences, Yes symmetric chest movement and No tachypneic AUSCULTATION: clear to auscultation bilaterally OTHER: -on RA Cardio: COMMON NORMALS: regular rhythm, S1 normal heart sound present, S2 normal heart sound present and No murmurs present (Cardio) RATE: tachycardic RHYTHM: regular rhythm HEART SOUNDS: S1 normal heart sound present and S2 normal heart sound present GI: COMMON NORMALS: Normal to inspection, nondistended, normoactive bowel sounds present and Soft to palpation INSPECTION: Yes central obesity PALPATION: Yes Soft to palpation, Yes Tenderness to palpation present (GI) (epigastric, LUQ, LLQ), Yes Guarding due to palpation present (GI) and No Rigid due to palpation Extremity: COMMON NORMALS: normal to inspection, full ROM and no clubbing, cyanosis or edema; negative for no pedal edema Neuro: COMMON NORMALS: patient oriented x3, moves all extremities, no focal motor deficits and no sensory deficits noted SENSORIUM/ORIENTATION: Yes alert Psych: COMMON NORMALS: mental status grossly normal, Normal thought process present, cooperative, normal affect and speech normal SPEECH: Yes normal speech THOUGHT PROCESS: Normal thought process present Skin: COMMON NORMALS: no rashes or lesions noted, no jaundice, no petechiae a nd no mottling GENERAL SKIN EXAM: no rashes or lesions noted Data : 12/13/19 14:19 12/13/19 14:19 A&P Assessment and plan (1) Acute pancreatitis: -Has known history of chronic pancreatitis now with acute flare, inability to tolerate oral intake, abdominal pain -Lipase of 110 -Appears clinically dehydrated, IV fluid hydration -Pain control, antiemetics as needed -NPO for now -no new imaging ordered, last CT A/P done in 11/2019 with noted normal appearing pancreas. May consider additional imaging if worsening/not improving as expected -noted mild AST (33) and ALP elevation (184), s/p cholecystectomy, unremarkable liver, no significant biliary dilatation -prior lipid panel wnl Status: Acute Qualifiers: Acute pancreatitis complication: no infection or necrosis Pancreatitis type: unspecified pancreatitis type Qualified Code(s): K85.90 - Acute pancreatitis without necrosis or infection, unspecified (2) Nausea & vomiting: -with associated dehydration -secondary to acute pancreatitis Status: Acute Qualifiers: Vomiting Intractability: intractable Vomiting type: unspecified Qualified Code(s): R11.2 - Nausea with vomiting, unspecified (3) PUD (peptic ulcer disease): -on PPI, carafate -Had EGD done on 06/13/[address] 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; final pathology, no intestinal metaplasia, dysplasia or malignancy; noted ulceration with adjacent degenerating atypical cells Status: Chronic (4) Generalized anxiety disorder: -resume anxiolytics Status: Chronic (5) Chronic post-traumatic stress disorder: -resume meds Status: Chronic Additional A&P Information -HTN; continue oral antihypertensives, continue to monitor vital signs -Chronic diastolic CHF; Echo (04/2019): EF=65%, no RWMA; no acute exacerbation -PTSD, anxiety, depression; f/u with psychiatry, continue meds -GI ppx with PPI -DVT ppx with SCDs, lovenox -Dispo: home -Code status: FULL code Attestations Medical Necessity Statement*: Therese Schaefer's hospital stay will require greater than 2 midnights for monitoring of acute on chronic chronic otitis, intractable nausea and vomiting requiring pain control, IV fluid hydration. Time Spent in Patient Care: Greater than 35 minutes (>than 50% of time spent in counselling and/or direct pt care on unit) . 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 Environmental Engineering Intern for g Fwd Exam Comprehensive Diagnoses Acute pancreatitis K85.90 Acute pancreatitis complication: no infection or necrosis Pancreatitis type: unspecified pancreatitis type Nausea & vomiting R11.2 Vomiting Intractability: intractable Vomiting type: unspecified PUD (peptic ulcer disease) K27.9 Generalized anxiety disorder F41.1 Chronic post-traumatic stress disorder F43.12
[2019-12-13] MEDS: enoxaparin 40 mg/0.4 mL Syringe SUBCUT (23:42)
[2019-12-13] MEDS: sodium chloride 0.9% 1,000 ML 125 ML IV (23:42)
[2019-12-14] VITALS (13 sets, daily range): BP systolic 124–148; BP diastolic 83–96; PULSE 72–110; RESP 16–24; TEMP 36.8–37; O2SAT 94–97; BMI 28.1
[2019-12-14] MEDS: LORazepam 1 mg Tablet PO ×3 (02:09→18:46)
[2019-12-14] MEDS: HYDROmorphone 1 mg/mL INJ 1 mL IVP ×7 (02:10→23:24)
[2019-12-14] MEDS: citalopram 20 mg Tablet PO (06:30)
[2019-12-14] MEDS: sodium chloride 0.9% 1,000 ML 125 ML IV ×3 (06:34→22:52)
[2019-12-14 07:10] LABS: Basophils % 0.5 %; Eosinophils # 0.1 10^3/uL (0.0-0.8); Eosinophils % 1.5 %; Hematocrit 39.6 % (37.0-47.0); Hemoglobin 11.3 g/dL (11.5-15.3); Lymphocytes # 1.1 10^3/uL (0.8-4.8); Mean Corpuscular HGB Conc 28.5 g/dL (30.0-36.0); Mean Corpuscular Hemoglobin 31.1 pg (28.0-34.0); Mean Corpuscular Volume 109.1 fL (81-99); Mean Platelet Volume 8.9 fL (7.4-10.4); Monocytes # 0.5 10^3/uL (0.2-0.9); Neutrophils # 4.69 10^3/uL (1.8-7.7); Neutrophils % 72.7 %; Nucleated Red Blood Cells % 0 %; Platelet Count 209 10^3/cmm (130-400); Red Blood Count 3.63 10^6/uL (4.1-5.3); Red Cell Distribution Width 18.6 % (12.1-15.1); White Blood Count 6.5 10^3/uL (4.0-10.0)
[2019-12-14 07:56] LABS: Blood Urea Nitrogen 4 mg/dL (6-20); Calcium 7.7 mg/dL (8.5-10.5); Carbon Dioxide 18 mmol/L (22-29); Chloride 111 mmol/L (98-107); Glomerular Filtration Rate 108.1 mL/min (90-130); Glucose 79 mg/dL (65-115); Lipase 91 U/L (13-60); Osmolality Calculated 283 mOsm/kg (285-295); Sodium 139 mmol/L (136-145)
--- NOTE | 2019-12-14 08:00 | PC.NURSE ---
during assessment, pt stated that abdomen is tender to palpitation.
[2019-12-14 08:01] LABS: Anion Gap 13.7 (5-19); Potassium 3.7 mmol/L (3.5-5.1)
[2019-12-14] MEDS: pantoprazole 40 mg SDV IVP ×2 (09:31→17:06)
[2019-12-14] MEDS: aspirin 81 mg EC Tablet PO (09:32)
[2019-12-14] MEDS: sucralfate 1 gm Tablet PO ×3 (09:32→20:16)
[2019-12-14] MEDS: multivitamin therapeutic Tablet 1 TAB PO (09:32)
[2019-12-14] MEDS: dicyclomine 20 mg Tablet PO ×4 (09:32→20:15)
[2019-12-14] MEDS: metoprolol tartrate 25 mg Tablet PO ×2 (09:32→17:06)
--- NOTE | 2019-12-14 10:21 | PC.NURSE ---
pt states this pain medication is not touching my pain at all after getting a dose of pain medication. repositioned pt and reduced environmental stimuli. pt states that she feels better after these interventions.
--- NOTE | 2019-12-14 12:46 | P.PN_ITS ---
Subjective Subjective: Interval history: Patient appears to be comfortable this morning.Though she is still complaining of abdominal pain.Abdominal pain has decreased since yesterday. She is yet not ready tolerate diet. She has also complained of 2 episodes of nonbloody loose stool Medications: Reviewed: Yes Vitals/I&O/Wt Last Vital Signs Temp 98.5 F 12/14/19 11:39 Pulse 108 H 12/14/19 11:39 Resp 18 12/14/19 11:39 BP 148/96 12/14/19 11:39 Pulse Ox 94 12/14/19 11:39 12/13/19 12/14/19 12/14/19 22:59 06:59 14:59 Intake Total 1999 858.333 / 2858.333 Output Total 300 / 300 Balance 1999 558.333 / 2558.333 Weight last 48 hrs Weight 74.389 kg Weight 74.389 kg Physical Exam Const: COMMON NORMALS: patient oriented x3 HENMT: COMMON NORMALS: normocephalic, atraumatic, hearing grossly normal bilaterally and external ears normal HEAD & SCALP: normocephalic and at raumatic EXTERNAL EAR: Yes external ears normal Eye: COMMON NORMALS: no scleral icterus GENERAL EYE: appearance normal, both eyes and all related structures Chest: COMMONS NORMALS: normal inspection of the chest and normal palpation of entire chest wall CHEST: Yes Symmetrical chest wall rise Resp: COMMON NORMALS: normal respiratory effort, No retractions, No use of accessory muscles and clear to auscultation bilaterally EFFORT & INSPECTION: Yes symmetric chest movement AUSCULTATION: clear to auscultation bilaterally Cardio: COMMON NORMALS: regular rate, regular rhythm, S1 normal heart sound present, S2 normal heart sound present, No gallops present (Cardio), No murmurs present (Cardio), No rub (Cardio) and Peripheral pulses 2+ throughout RATE: regular rate RHYTHM: regular rhythm HEART SOUNDS: S1 normal heart sound present and S2 normal heart sound present PERIPHERAL PULSES: Peripheral pulses 2+ throughout GI: COMMON NORMALS: Normal to inspection, nondistended, normoactive bowel sounds present, No hepatosplenomegaly present and no masses INSPECTION: Yes other (milld epigastric tenderness present.) AUSCULTATION: Yes normoactive bowel sounds PALPATION: Yes No hepatosplenomegaly present RECTAL EXAM: deferred : COMMON NORMALS: Yes no CVA tenderness BLADDER/KIDNEY EXAM: Yes no CVA tenderness Back/Pelvis: COMMON NORMALS: no CVA tenderness Extremity: COMMON NORMALS: no clubbing, cyanosis or edema and no pedal edema Neuro: COMMON NORMALS: patient oriented x3 Data : 12/14/19 06:44 12/14/19 06:44 A&P Assessment and plan (1) Acute pancreatitis: -Has known history of chronic pancreatitis now with acute flare, inability to tolerate oral intake, abdominal pain -Lipase of 110 -Appears clinically dehydrated, IV fluid hydration -Pain control, antiemetics as needed -NPO for now -no new imaging ordered, last CT A/P done in 11/2019 with noted normal appearing pancreas. May consider additional imaging if worsening/not improving as expected -noted mild AST (33) and ALP elevation (184), s/p cholecystectomy, unremarkable liver, no significant biliary dilatation -prior lipid panel wnl Status: Acute Qualifiers: Acute pancreatitis complication: no infection or necrosis Pancreatitis type: unspecified pancreatitis type Qualified Code(s): K85.90 - Acute pancreatitis without necrosis or infection, unspecified (2) Nausea & vomiting: -with associated dehydration -secondary to acute pancreatitis Status: Acute Qualifiers: Vomiting type: unspecified Vomiting Intractability: intractable Qualified Code(s): R11.2 - Nausea with vomiting, unspecified (3) PUD (peptic ulcer disease): -on PPI, carafate -Had EGD done on 06/13/[address] 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; final pathology, no intestinal metaplasia, dysplasia or malignancy; noted ulceration with adjacent degenerating atypical cells Status: Chronic (4) Generalized anxiety disorder: -resume anxiolytics Status: Chronic (5) Chronic post-traumatic stress disorder: -resume meds Status: Chronic Additional A&P Information -HTN; continue oral antihypertensives, continue to monitor vital signs -Chronic diastolic CHF; Echo (04/2019): EF=65%, no RWMA; no acute exacerbation -PTSD, anxiety, depression; f/u with psychiatry, continue meds -GI ppx with PPI -DVT ppx with SCDs, lovenox -Dispo: home -Code status: FULL code Attestations Medical Necessity Statement*: Patient is continued to have signs of Ac on Chronic Pancreatitis. 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 Clinical Laboratory Medical Director for Ch[facility] Fwd Exam Comprehensive Diagnoses Acute pancreatitis K85.90 Acute pancreatitis complication: no infection or necrosis Pancreatitis type: unspecified pancreatitis type Nausea & vomiting R11.2 Vomiting type: unspecified Vomiting Intractability: intractable PUD (peptic ulcer disease) K27.9 Generalized anxiety disorder F41.1 Chronic post-traumatic stress disorder F43.12
--- NOTE | 2019-12-14 15:55 | PC.NURSE ---
Addendum entered by Irma Ott RN 12/14/19 16:18: Made Dr. Love aware, no new orders received. Original Note: pt states that pain has not been controlled with current pain medication, dilaudid. notified Dr. Love, awaiting orders.
[2019-12-14] MEDS: enoxaparin 40 mg/0.4 mL Syringe SUBCUT (23:09)
[2019-12-15] VITALS (11 sets, daily range): BP systolic 134–147; BP diastolic 84–99; PULSE 72–84; RESP 14–20; TEMP 36.6–36.9; O2SAT 96–99
[2019-12-15] MEDS: HYDROmorphone 1 mg/mL INJ 1 mL IVP ×6 (02:24→19:28)
[2019-12-15] MEDS: LORazepam 1 mg Tablet PO ×3 (04:10→21:22)
--- NOTE | 2019-12-15 05:34 | PC.NURSE ---
SHIFT SUMMARY Rests between doses of pain med. c/o pain/tenderness across upper abdomen nila on left side. Requests IV Dilaudid just pretty much q4h. Had po Ativan X1. No vomiting this shift and tolerates ice chips, sips & meds well. Otherwise remains NPO. IV infusing without difficulty at 125ml/hr rate. Urinating well
[2019-12-15] MEDS: sodium chloride 0.9% 1,000 ML 125 ML IV ×2 (05:59→14:11)
[2019-12-15] MEDS: citalopram 20 mg Tablet PO (05:59)
[2019-12-15] MEDS: sucralfate 1 gm Tablet PO ×3 (09:16→21:22)
[2019-12-15] MEDS: pantoprazole 40 mg SDV IVP ×2 (09:16→17:28)
[2019-12-15] MEDS: metoprolol tartrate 25 mg Tablet PO ×2 (09:17→17:28)
[2019-12-15] MEDS: aspirin 81 mg EC Tablet PO (09:17)
[2019-12-15] MEDS: multivitamin therapeutic Tablet 1 TAB PO (09:17)
[2019-12-15] MEDS: dicyclomine 20 mg Tablet PO ×4 (09:17→21:44)
--- NOTE | 2019-12-15 11:06 | PM.PN ---
Subjective Subjective: Interval history: She was complaining of less abdominal pain today in the morning and was willing to start clear liquid diet. Vitals and labs have been reviewed. We have started her on clear liquid and will advance the diet as tolerated. Medications: Reviewed: Yes Vitals/I&O/Wt Last Vital Signs Temp 97.8 F 12/15/19 08:00 Pulse 84 12/15/19 08:00 Resp 17 12/15/19 09:16 BP 140/90 12/15/19 08:00 Pulse Ox 96 12/15/19 09:16 12/14/19 12/15/19 12/15/19 22:59 06:59 14:59 Intake Total 1000 / 1954.167 889.583 / 2843.750 Output Total 600 / 600 1050 / 1650 Balance 400 / 1354.167 -160.417 / 1193.750 Weight last 48 hrs Weight 79.333 kg Weight 74.389 kg Weight 74.389 kg Physical Exam Narrative: EXAM NARRATIVE: COMMON NORMALS: patient oriented x3 [facility] COMMON NORMALS: normocephalic, atraumatic, hearing grossly normal bilaterally and external ears normal HEAD & SCALP: normocephalic and atraumatic EXTERNAL EAR: Yes external ears normal Eye COMMON NORMALS: no scleral icterus GENERAL EYE: appearance normal, both eyes and all related structures Chest COMMONS NORMALS: normal inspection of the chest and normal palpation of entire chest wall CHEST: Yes Symmetrical chest wall rise Resp COMMON NORMALS: normal respiratory effort, No retractions, No use of accessory muscles and clear to auscultation bilaterally EFFORT & INSPECTION: Yes symmetric chest movement AUSCULTATION: clear to auscultation bilaterally Cardio COMMON NORMALS: regular rate, regular rhythm, S1 normal heart sound present, S2 normal heart sound present, No gallops present (Cardio), No murmurs present (Cardio), No rub (Cardio) and Peripheral pulses 2+ throughout RATE: regular rate RHYTHM: regular rhythm HEART SOUNDS: S1 normal heart sound present and S2 normal heart sound present PERIPHERAL PULSES: Peripheral pulses 2+ throughout GI COMMON NORMALS: Normal to inspection, nondistended, normoactive bowel sounds present, No hepatosplenomegaly present and no masses INSPECTION: Yes other (milld epigastric tenderness present.) AUSCULTATION: Yes normoactive bowel sounds PALPATION: Yes No hepatosplenomegaly present RECTAL EXAM: deferred COMMON NORMALS: Yes no CVA tenderness BLADDER/KIDNEY EXAM: Yes no CVA tenderness Back/Pelvis COMMON NORMALS: no CVA tenderness Extremity COMMON NORMALS: no clubbing, cyanosis or edema and no pedal edema Neuro COMMON NORMALS: patient oriented x3 Resp: COMMON NORMALS: No retractions Data : 12/14/19 06:44 12/14/19 06:44 A&P Assessment and plan (1) Acute pancreatitis: -Has known history of chronic pancreatitis now with acute flare, inability to tolerate oral intake, abdominal pain -Lipase of 110 -Appears clinically dehydrated, IV fluid hydration -Pain control, antiemetics as needed -NPO for now -no new imaging ordered, last CT A/P done in 11/2019 with noted normal appearing pancreas. May consider additional imaging if worsening/not improving as expected -noted mild AST (33) and ALP elevation (184), s/p cholecystectomy, unremarkable liver, no significant biliary dilatation -prior lipid panel wnl Status: Acute Qualifiers: Acute pancreatitis complication: no infection or necrosis Pancreatitis type: unspecified pancreatitis type Qualified Code(s): K85.90 - Acute pancreatitis without necrosis or infection, unspecified (2) Nausea & vomiting: -with associated dehydration -secondary to acute pancreatitis Status: Acute Qualifiers: Vomiting type: unspecified Vomiting Intractability: intractable Qualified Code(s): R11.2 - Nausea with vomiting, unspecified (3) PUD (peptic ulcer disease): -on PPI, carafate -Had EGD done on 06/13/[address] 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; final pathology, no intestinal metaplasia, dysplasia or malignancy; noted ulceration with adjacent degenerating atypical cells Status: Chronic (4) Generalized anxiety disorder: -resume anxiolytics Status: Chronic (5) Chronic post-traumatic stress disorder: -resume meds Status: Chronic Additional A&P Information -HTN; continue oral antihypertensives, continue to monitor vital signs -Chronic diastolic CHF; Echo (04/2019): EF=65%, no RWMA; no acute exacerbation -PTSD, anxiety, depression; f/u with psychiatry, continue meds -GI ppx with PPI -DVT ppx with SCDs, lovenox -Dispo: home -Code status: FULL code Attestations Medical Necessity Statement*: She needs to be in the hospital for management of chronic pain. 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 Precision Mechanical Instrument Maker for g Fwd Diagnoses Acute pancreatitis K85.90 Acute pancreatitis complication: no infection or necrosis Pancreatitis type: unspecified pancreatitis type Nausea & vomiting R11.2 Vomiting type: unspecified Vomiting Intractability: intractable PUD (peptic ulcer disease) K27.9 Generalized anxiety disorder F41.1 Chronic post-traumatic stress disorder F43.12
--- NOTE | 2019-12-15 18:31 | PC.NURSE ---
END OF SHIFT SUMMARY pt has been able to rest well today. pt is A/Ox4 and is able to transfer well with standby assistance. pt is currently resting in bed watching TV. pt has been switched to a clear liquid diet, pt stated, I cannot eat this, i do not want this. asked pt what she thinks she will be able to tolerate, pt stated, i want a popsicle. gave pt frozen ind[place] ice/popsicle and pt tolerated that well.
[2019-12-15] MEDS: trazodone 150 mg Tablet PO (21:22)
[2019-12-15] MEDS: TRAMadol 50 mg Tablet PO (21:26)
[2019-12-16] VITALS (14 sets, daily range): BP systolic 93–137; BP diastolic 58–93; PULSE 60–80; RESP 14–20; TEMP 36.8–37.2; O2SAT 93–100
[2019-12-16] MEDS: sodium chloride 0.9% 1,000 ML 125 ML IV ×4 (00:04→23:20)
[2019-12-16] MEDS: enoxaparin 40 mg/0.4 mL Syringe SUBCUT ×2 (00:04→23:18)
[2019-12-16] MEDS: HYDROmorphone 1 mg/mL INJ 1 mL IVP ×7 (01:39→22:26)
[2019-12-16] MEDS: citalopram 20 mg Tablet PO (07:17)
[2019-12-16] MEDS: metoprolol tartrate 25 mg Tablet PO ×2 (08:00→18:20)
[2019-12-16] MEDS: dicyclomine 20 mg Tablet PO ×4 (08:06→22:21)
[2019-12-16] MEDS: sucralfate 1 gm Tablet PO ×3 (08:06→22:20)
[2019-12-16] MEDS: aspirin 81 mg EC Tablet PO (08:06)
[2019-12-16] MEDS: multivitamin therapeutic Tablet 1 TAB PO (08:06)
[2019-12-16] MEDS: pantoprazole 40 mg SDV IVP ×2 (08:07→18:20)
[2019-12-16] MEDS: LORazepam 1 mg Tablet PO ×3 (08:09→23:19)
[2019-12-16] MEDS: TRAMadol 50 mg Tablet PO (11:21)
--- NOTE | 2019-12-16 18:13 | PM.PN ---
Subjective Subjective: Interval history: No events overnight. Vitals noted. Denies of any nausea, vomiting. Adding clear liquid diet. Medications: Reviewed: Yes Vitals/I&O/Wt Last Vital Signs Temp 98.4 F 12/16/19 16:03 Pulse 68 12/16/19 16:03 Resp 17 12/16/19 16:03 BP 130/85 12/16/19 16:03 Pulse Ox 96 12/16/19 16:03 12/16/19 12/16/19 12/16/19 06:59 14:59 22:59 Intake Total 150 / 2200 992.083 / 992.083 987.5 / 1978.583 Balance 150 / 1700 992.083 / 992.083 987.5 / 1978.583 Weight last 48 hrs Weight 77.7 kg Weight 79.333 kg Physical Exam Narrative: EXAM NARRATIVE: COMMON NORMALS: patient oriented x3 HENMT COMMON NORMALS: normocephalic, atraumatic, hearing grossly normal bilaterally and external ears normal HEAD & SCALP: normocephalic and atraumatic EXTERNAL EAR: Yes external ears normal Eye COMMON NORMALS: no scleral icterus GENERAL EYE: appearance normal, both eyes and all related structures Chest COMMONS NORMALS: normal inspection of the chest and normal palpation of entire chest wall CHEST: Yes Symmetrical chest wall rise Resp COMMON NORMALS: normal respiratory effort, No retractions, No use of accessory muscles and clear to auscultation bilaterally EFFORT & INSPECTION: Yes symmetric chest movement AUSCULTATION: clear to auscultation bilaterally Cardio COMMON NORMALS: regular rate, regular rhythm, S1 normal heart sound present, S2 normal heart sound present, No gallops present (Cardio), No murmurs present (Cardio), No rub (Cardio) and Peripheral pulses 2+ throughout RATE: regular rate RHYTHM: regular rhythm HEART SOUNDS: S1 normal heart sound present and S2 normal heart sound present PERIPHERAL PULSES: Peripheral pulses 2+ throughout Data : 12/14/19 06:44 12/14/19 06:44 A&P Assessment and plan (1) Acute pancreatitis: -Has known history of chronic pancreatitis now with acute flare, inability to tolerate oral intake, abdominal pain Tolerating clear liquid diets well. Advance to full liquid diet. Pain control, antiemetics as needed. -no new imaging ordered, last CT A/P done in 11/2019 with noted normal appearing pancreas. May consider additional imaging if worsening/not improving as expected -noted mild AST (33) and ALP elevation (184), s/p cholecystectomy, unremarkable liver, no significant biliary dilatation -prior lipid panel wnl Status: Acute Qualifiers: Acute pancreatitis complication: no infection or necrosis Pancreatitis type: unspecified pancreatitis type Qualified Code(s): K85.90 - Acute pancreatitis without necrosis or infection, unspecified (2) Nausea & vomiting: -with associated dehydration -secondary to acute pancreatitis Status: Acute Qualifiers: Vomiting type: unspecified Vomiting Intractability: intractable Qualified Code(s): R11.2 - Nausea with vomiting, unspecified (3) PUD (peptic ulcer disease): -on PPI, carafate -Had EGD done on 06/13/[address] 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; final pathology, no intestinal metaplasia, dysplasia or malignancy; noted ulceration with adjacent degenerating atypical cells Status: Chronic (4) Generalized anxiety disorder: -resume anxiolytics Status: Chronic (5) Chronic post-traumatic stress disorder: -resume meds Status: Chronic Additional A&P Information -HTN; continue oral antihypertensives, continue to monitor vital signs -Chronic diastolic CHF; Echo (04/2019): EF=65%, no RWMA; no acute exacerbation -PTSD, anxiety, depression; f/u with psychiatry, continue meds -GI ppx with PPI -DVT ppx with SCDs, lovenox -Dispo: home -Code status: FULL code Attestations Medical Necessity Statement*: Acute on chronic pancreatitis. Time Spent in Patient Care: Greater than 35 minutes (>than 50% of time spent in counselling and/or direct pt care on unit). 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 Alarm Mechanism Adjuster for g Fwd Diagnoses Acute pancreatitis K85.90 Acute pancreatitis complication: no infection or necrosis Pancreatitis type: unspecified pancreatitis type Nausea & vomiting R11.2 Vomiting type: unspecified Vomiting Intractability: intractable PUD (peptic ulcer disease) K27.9 Generalized anxiety disorder F41.1 Chronic post-traumatic stress disorder F43.12
[2019-12-17] VITALS (10 sets, daily range): BP systolic 121–143; BP diastolic 67–94; PULSE 61–78; RESP 17–18; TEMP 36.6–36.8; O2SAT 92–97
[2019-12-17] MEDS: HYDROmorphone 1 mg/mL INJ 1 mL IVP ×3 (02:05→09:02)
[2019-12-17] MEDS: citalopram 20 mg Tablet PO (06:01)
[2019-12-17] MEDS: LORazepam 1 mg Tablet PO ×2 (07:38→15:25)
[2019-12-17] MEDS: sodium chloride 0.9% 1,000 ML 125 ML IV (07:39)
[2019-12-17] MEDS: sucralfate 1 gm Tablet PO ×3 (09:02→21:43)
[2019-12-17] MEDS: aspirin 81 mg EC Tablet PO (09:02)
[2019-12-17] MEDS: metoprolol tartrate 25 mg Tablet PO ×2 (09:02→17:33)
[2019-12-17] MEDS: multivitamin therapeutic Tablet 1 TAB PO (09:02)
[2019-12-17] MEDS: dicyclomine 20 mg Tablet PO ×4 (09:02→21:43)
[2019-12-17] MEDS: pantoprazole 40 mg SDV IVP (09:02)
[2019-12-17 11:15] LABS: Basophils % 1.3 %; Eosinophils # 0.3 10^3/uL (0.0-0.8); Eosinophils % 8.2 %; Hematocrit 39.7 % (37.0-47.0); Hemoglobin 12.4 g/dL (11.5-15.3); Lymphocytes # 1.1 10^3/uL (0.8-4.8); Mean Corpuscular HGB Conc 31.2 g/dL (30.0-36.0); Mean Corpuscular Hemoglobin 31.2 pg (28.0-34.0); Mean Platelet Volume 9.3 fL (7.4-10.4); Monocytes # 0.2 10^3/uL (0.2-0.9); Monocytes % 5.9 %; Neutrophils % 48.9 %; Nucleated Red Blood Cells % 0 %; Platelet Count 203 10^3/cmm (130-400); Red Blood Count 3.97 10^6/uL (4.1-5.3); Red Cell Distribution Width 17.8 % (12.1-15.1); White Blood Count 3.1 10^3/uL (4.0-10.0)
[2019-12-17 11:25] LABS: Alanine Aminotransferase 35 U/L (0-33); Albumin Level 2.4 g/dL (3.5-5.2); Alkaline Phosphatase 206 IU/L (35-105); Aspartate Amino Transferase 37 U/L (0-32); Calcium 7.5 mg/dL (8.5-10.5); Carbon Dioxide 22 mmol/L (22-29); Chloride 110 mmol/L (98-107); Globulin 2.9 g/dL (1.3-4.6); Glomerular Filtration Rate 133.4 mL/min (90-130); Glucose 81 mg/dL (65-115); Sodium 141 mmol/L (136-145); Total Bilirubin 0.4 mg/dL (0.15-1.2); Total Protein 5.3 g/dL (6.6-8.7)
[2019-12-17 11:48] LABS: Blood Urea Nitrogen 1 mg/dL (6-20); Osmolality Calculated 287 mOsm/kg (285-295)
[2019-12-17] MEDS: TRAMadol 50 mg Tablet PO ×2 (12:13→21:42)
--- NOTE | 2019-12-17 17:10 | PM.PN ---
Subjective Subjective: Interval history: Once overnight. Patient has remained hemodynamically stable and afebrile since admission. Tolerating full liquid diet well. Complaining of mild nausea. On my entering room patient lying comfortably in bed watching television. On my asking she states she is in pain. Does not have any pain when redirected to something different. Keeps asking for Dilaudid multiple times during my interview with the patient. Discussed with her in detail regarding proper pain management, expectation of pain management, need for GI soft multiple soft small meals. Medications: Reviewed: Yes Vitals/I&O/Wt Last Vital Signs Temp 98.3 F 12/17/19 14:00 Pulse 76 12/17/19 14:00 Resp 18 12/17/19 14:00 BP 132/89 12/17/19 14:00 Pulse Ox 92 12/17/19 14:00 12/17/19 12/17/19 12/17/19 06:59 14:59 22:59 Intake Total 1000 / 3199.583 1420 / 1420 Output Total 800 / 800 300 / 300 Balance 200 / 2399.583 1120 / 1120 Weight last 48 hrs Weight 81.647 kg Weight 77.7 kg Physical Exam Narrative: EXAM NARRATIVE: COMMON NORMALS: patient oriented x3 [facility] COMMON NORMALS: normocephalic, atraumatic, hearing grossly normal bilaterally and external ears normal HEAD & SCALP: normocephalic and atraumatic EXTERNAL EAR: Yes external ears normal Eye COMMON NORMALS: no scleral icterus GENERAL EYE: appearance normal, both eyes and all related structures Chest COMMONS NORMALS: normal inspection of the chest and normal palpation of entire chest wall CHEST: Yes Symmetrical chest wall rise Resp COMMON NORMALS: normal respiratory effort, No retractions, No use of accessory muscles and clear to auscultation bilaterally EFFORT & INSPECTION: Yes symmetric chest movement AUSCULTATION: clear to auscultation bilaterally Cardio COMMON NORMALS: regular rate, regular rhythm, S1 normal heart sound present, S2 normal heart sound present, No gallops present (Cardio), No murmurs present (Cardio), No rub (Cardio) and Peripheral pulses 2+ throughout RATE: regular rate RHYTHM: regular rhythm HEART SOUNDS: S1 normal heart sound present and S2 normal heart sound present PERIPHERAL PULSES: Peripheral pulses 2+ throughout Data : 12/17/19 10:40 12/17/19 10:40 A&P Assessment and plan (1) Acute pancreatitis: -Has known history of chronic pancreatitis now with acute flare, inability to tolerate oral intake, abdominal pain Tolerating clear liquid diets well. Continue full liquid diet during the day. If she continues to tolerate well will advance to GI soft for dinner and see how she does.. Pain control with oral tramadol. We will stop Dilaudid. Antiemetics as needed. -no new imaging ordered, last CT A/P done in 11/2019 with noted normal appearing pancreas. May consider additional imaging if worsening/not improving as expected -noted mild AST (33) and ALP elevation (184), s/p cholecystectomy, unremarkable liver, no significant biliary dilatation -prior lipid panel wnl Status: Acute Qualifiers: Acute pancreatitis complication: no infection or necrosis Pancreatitis type: unspecified pancreatitis type Qualified Code(s): K85.90 - Acute pancreatitis without necrosis or infection, unspecified (2) Nausea & vomiting: Resolved. Status: Acute Qualifiers: Vomiting type: unspecified Vomiting Intractability: intractable Qualified Code(s): R11.2 - Nausea with vomiting, unspecified (3) PUD (peptic ulcer disease): -on PPI, carafate -Had EGD done on 06/13/[address] 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; final pathology, no intestinal metaplasia, dysplasia or malignancy; noted ulceration with adjacent degenerating atypical cells Status: Chronic (4) Generalized anxiety disorder: -resume anxiolytics Status: Chronic (5) Chronic post-traumatic stress disorder: -resume meds Status: Chronic Additional A&P Information -HTN; continue oral antihypertensives, continue to monitor vital signs -Chronic diastolic CHF; Echo (04/2019): EF=65%, no RWMA; no acute exacerbation -PTSD, anxiety, depression; f/u with psychiatry, continue meds -GI ppx with PPI -DVT ppx with SCDs, lovenox -Dispo: home -Code status: FULL code Attestations Medical Necessity Statement*: Acute on chronic pancreatitis Time Spent in Patient Care: Greater than 35 minutes 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 Optician for [facility] Fwd Diagnoses Acute pancreatitis K85.90 Acute pancreatitis complication: no infection or necrosis Pancreatitis type: unspecified pancreatitis type Nausea & vomiting R11.2 Vomiting type: unspecified Vomiting Intractability: intractable PUD (peptic ulcer disease) K27.9 Generalized anxiety disorder F41.1 Chronic post-traumatic stress disorder F43.12
[2019-12-17] MEDS: pantoprazole DR 40 mg Tablet PO (17:53)
[2019-12-18] VITALS: BP 120/67; PULSE 67; RESP 18; TEMP 36.6; O2SAT 97
[2019-12-18] MEDS: trazodone 150 mg Tablet PO (00:05)
[2019-12-18] MEDS: enoxaparin 40 mg/0.4 mL Syringe SUBCUT (00:05)
[2019-12-18] MEDS: LORazepam 1 mg Tablet PO ×2 (00:05→08:26)
[2019-12-18 04:00] VITALS: BP 129/79; PULSE 69; RESP 18; TEMP 36.9; O2SAT 94
[2019-12-18] MEDS: citalopram 20 mg Tablet PO (06:32)
[2019-12-18 08:00] VITALS: BP 134/86; PULSE 78; RESP 20; TEMP 37.2; O2SAT 96
[2019-12-18] MEDS: TRAMadol 50 mg Tablet PO (08:26)
[2019-12-18] MEDS: multivitamin therapeutic Tablet 1 TAB PO (08:27)
[2019-12-18] MEDS: sucralfate 1 gm Tablet PO (08:27)
[2019-12-18] MEDS: dicyclomine 20 mg Tablet PO (08:27)
[2019-12-18] MEDS: aspirin 81 mg EC Tablet PO (08:27)
[2019-12-18] MEDS: metoprolol tartrate 25 mg Tablet PO (08:27)
[2019-12-18] MEDS: pantoprazole DR 40 mg Tablet PO (08:27)
--- NOTE | 2019-12-18 09:49 | PM.DCS ---
Discharge Providers Date of Admission: 12/13/19 22:18 Date of Discharge: December 18, 2019 Attending Provider at Admission: Kelsea Hernandez MD Attending Provider at Discharge: Desmond Norton MD Primary Care Provider: Rosi Shell NP Diagnoses at Discharge Discharge Diagnosis (1) Acute pancreatitis: Status: Acute Qualifiers: Acute pancreatitis complication: no infection or necrosis Pancreatitis type: unspecified pancreatitis type Qualified Code(s): K85.90 - Acute pancreatitis without necrosis or infection, unspecified (2) Nausea & vomiting: Status: Acute Qualifiers: Vomiting Intractability: intractable Vomiting type: unspecified Qualified Code(s): R11.2 - Nausea with vomiting, unspecified (3) PUD (peptic ulcer disease): Status: Chronic (4) Generalized anxiety disorder: Status: Chronic (5) Chronic post-traumatic stress disorder: Status: Chronic Reason for Visit Reason for Visit: vomiting/sob Hospital Course Discharge Summary: Therese Schaefer is a 43 year old female with PMHx noted below presents with complaints of nausea, vomiting, abdominal discomfort and inability to tolerate oral intake since this last weekend. Patient has been admitted to our facility on multiple occasions due to similar symptoms, attributed to pancreatitis. She is known to me from previous admission. She is laying on the stretcher in the ER in a position, overtly uncomfortable. Has received IV fluid hydration, 3 mg of IV Dilaudid, antiemetics with continued discomfort. Work-up so far shows a normal CBC, normal electrolytes, normal renal function, AST of 33, ALP of 184, lipase of 110, negative urinalysis. She was last seen in the ER on 12/06 for similar symptoms and was discharged home at that time. Vital signs are stable other than noted tachycardia likely secondary to pain. Due to noted inability to tolerate oral intake and need for more aggressive pain control patient will be admitted. She was admitted to the hospital for conservative treatment of acute on chronic pancreatitis. CT abdomen was done recently in November 19 so was not repeated. She was started on IV hydration and was gradually started on diet. On the day of discharge patient is able to tolerate GI soft diet for more than 12 to 18 hours. Her hospital stay has been uncomplicated. Patient is to take tramadol 50 mg every 8 hours as needed for pain. She is advised in detail to take small frequent meals along with pancrelipase and advance the diet slowly within next 1 week to 10 days. She also advised to follow-up with a primary care provider within next 4 to 7 days. Physical Exam Narrative: EXAM NARRATIVE: COMMON NORMALS: patient oriented x3 [facility] COMMON NORMALS: normocephalic, atraumatic, hearing grossly normal bilaterally and external ears normal HEAD & SCALP: normocephalic and atraumatic EXTERNAL EAR: Yes external ears normal Eye COMMON NORMALS: no scleral icterus GENERAL EYE: appearance normal, both eyes and all related structures Chest COMMONS NORMALS: normal inspection of the chest and normal palpation of entire chest wall CHEST: Yes Symmetrical chest wall rise Resp COMMON NORMALS: normal respiratory effort, No retractions, No use of accessory muscles and clear to auscultation bilaterally EFFORT & INSPECTION: Yes symmetric chest movement AUSCULTATION: clear to auscultation bilaterally Cardio COMMON NORMALS: regular rate, regular rhythm, S1 normal heart sound present, S2 normal heart sound present, No gallops present (Cardio), No murmurs present (Cardio), No rub (Cardio) and Peripheral pulses 2+ throughout RATE: regular rate RHYTHM: regular rhythm HEART SOUNDS: S1 normal heart sound present and S2 normal heart sound present PERIPHERAL PULSES: Peripheral pulses 2+ throughout Discharge Data Data Completed and Pending: Labs from last 24 hours 12/17/19 12/17/19 10:40 10:40 WBC 3.1 L RBC 3.97 L Hgb 12.4 Hct 39.7 MCV 100.0 H MCH 31.2 MCHC 31.2 RDW 17.8 H Plt Count 203 MPV 9.3 Neut % (Auto) 48.9 Lymph % (Auto) 35.0 [place] % (Auto) 5.9 Eos % (Auto) 8.2 Baso % (Auto) 1.3 Neut # (Auto) 1.50 L Lymph # (Auto) 1.1 [place] # (Auto) 0.2 Eos # (Auto) 0.3 Baso # (Auto) 0.0 Nucleated RBC % (a uto) 0 Nucleated RBCs # 0.0 Sodium 141 Potassium 3.0 L Chloride 110 H Carbon Dioxide 22 Anion Gap 12.0 BUN 1 L Creatinine 0.5 GFR Calculation 133.4 H Glucose 81 Calculated Osmolal ity 287 Calcium 7.5 L Total Bilirubin 0.4 AST 37 H ALT 35 H Alkaline Phosphata se 206 H Total Protein 5.3 L Albumin 2.4 L Globulin 2.9 Vitals: Last Vital Signs Temp 98.9 F 12/18/19 08:00 Pulse 78 12/18/19 08:00 Resp 20 H 12/18/19 08:00 BP 134/86 12/18/19 08:00 Pulse Ox 96 12/18/19 08:00 Discharge Plan Discharge Patient Disposition: Home Condition: Stable Prescriptions: New Creon 12,000-38,000 -60,000 unit capsule,delayed release(DR/EC) 1 cap PO TID Qty: 60 RF: 0 Continued citalopram [Celexa] 20 mg tablet 20 mg PO QAM Qty: 90 RF: 2 trazodone 150 mg tablet 150 mg PO BEDTIME PRN (Reason: sleep) Qty: 90 RF: 2 sucralfate 1 gram Tablet 1 g PO TID RF: 0 aspirin [Aspir-81] 81 mg Tablet,Delayed Release (Dr/Ec) 81 mg PO DAILY RF: 0 acetaminophen [Tylenol Extra Strength] 500 mg Tablet 500 - 1,000 mg PO Q6H PRN (Reason: Pain) RF: 0 multivitamin [Multiple Vitamins] Tablet 1 tab PO DAILY RF: 0 metoprolol tartrate 25 mg Tablet 25 mg PO BID RF: 0 Dexilant 60 mg capsule,biphase delayed releas 60 mg PO BID RF: 0 dicyclomine 20 mg tablet 20 mg PO QID Qty: 30 RF: 0 lorazepam [Ativan] 1 mg tablet 1 mg PO Q8H PRN (Reason: prn nausea) 7 Days Qty: 21 RF: 0 Changed Ultram 50 mg Tablet 50 mg PO Q8H PRN (Reason: Pain) Qty: 14 RF: 0 Discharge Orders: Discharge Order (Routine); Ordered 12/18/19 Ordered By: Desmond Norton Referrals: Derrick Mckeon MD [Physician] - 12/24/19 1:45 pm Discharge Diet: Advance as tolerated and GI Soft Discharge Activity: Resume usual activity Patient Instructions: Pancrelipase (By mouth), Pancreatitis (DC), Acute Nausea and Vomiting (DC) Activity Restrictions/Additional Instructions: Please take multiple small meals. For now take GI soft diet for next 1 week and then advance as tolerated to regular diet. Discharge Date/Time: 12/18/19 10:56 Discharge Attestations Time Spent in Discharge Care*: greater than 30 min Specific Discharge Activities: Specific discharge activities: educating patient, discussing with case management social worker/social workers/dc planners, documenting/other paperwork and evaluating patient/reviewing data Status at Discharge: Cognitive status at discharge: cognitively intact, Behavioral status at discharge: cooperative, Functional status at discharge: independent ambulation Overall status at discharge: patient is back to baseline Quality Metrics Clinical Quality Measures During this hospital stay, did patient experience: None 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
[2019-12-18 10:55] VITALS: BP 134/86; PULSE 78; RESP 20; TEMP 37.2; O2SAT 96
== END 2019-12-18 10:56 | disposition home or self-care (01) | DRG 439 ==
LOC: ER 22:49 → MEDSURG 22:52
PROVIDERS: Emergency Medicine; Admitting Provider Family Medicine; PCP Nurse Practitioner Family; Visit Provider Student in an Organized Health Care Education/Training Program
DX: K85.90 Acute pancreatitis without necrosis or infection, unspecified (principal); F33.2 Major depressive disorder, recurrent severe without psychotic features; F41.1 Generalized anxiety disorder; K27.9 Peptic ulcer, site unspecified, unspecified as acute or chronic, without hemorrhage or perforation; F43.12 Post-traumatic stress disorder, chronic; Z79.82 Long term (current) use of aspirin; I10 Essential (primary) hypertension; Z98.84 Bariatric surgery status; Z87.891 Personal history of nicotine dependence
CPT/HCPCS: 12345; 80048; 80053; 81003; 83690; 85025; 96372; 96375; 99284; C9113; J1170; J1650; J2060; J2550; J7030

== ENCOUNTER 2019-12-30 08:09 | Emergency (ER) | payer MEDICAID, SELFPAY ==
[2019-12-30 08:10] VITALS: BP 129/99; PULSE 114; RESP 18; TEMP 36.3; O2SAT 100; BMI 25.5
--- NOTE | 2019-12-30 08:32 | ED_ITS ---
HPI - Nausea/Vomiting/Diarrhea General: Chief complaint: Nausea/Vomiting/Diarrhea Stated complaint: SOB, N/V Time Seen by Provider: 12/30/19 08:25 History of Present Illness: HPI Narrative: 44-year-old female patient with longstanding history of abdominal pain, n/v/d presents to the emergency room with continued nausea vomiting x2 weeks. Recent evaluation in the ED with a hospital admission due to nausea vomiting. History of gastric surgery secondary to ulcers. She reports gastric emptying scan scheduled for next week. She states limited intake of fluids secondary to continued nausea vomiting. She reports history of chronic pancreatitis. Reports chronic nausea vomiting since May 2019. Weight loss of 60 pounds in past 6 months. Past colonoscopy 10 years ago. History of blood transfusion secondary to bleeding ulcers. Reports 3 episodes of diarrhea yesterday, none today. She reports small amount of blood in stool yesterday. She reports is currently out of Ativan which she is taking for nausea vomiting, she reports does not help anyway. She also reports has not been able to financially afford PPI prescription. MD elicited complaint: nausea, vomiting, diarrhea and abdominal pain Pertinent past history: anorexia, cyclical vomiting and abdominal surgery Onset (ago): month(s) Description of vomiting: watery, bilious and blood-streaked Description of diarrhea: watery Associated nausea: Yes Associated abdominal pain: Yes Location of pain: Diffuse Pain consistency: intermittent Severity: moderate Quality: cramping and aching Exacerbating factors: eating, vomiting and movement Relieving factors: rest Associated symtoms: Reports nausea; Denies chest pain, diaphoresis, dysuria, headache(s) or palpitations Treatment prior to arrival: other Review of Systems General: Reports: 10 or more systems reviewed and unremarkable except in HPI and below Const: Denies: fever(s), chills or diaphoresis Eyes: Denies: blurry vision or eye redness ENMT: Denies: throat pain, dental pain or disequilibrium Card: Denies: chest pain, palpitations or irregular heart rhythm Resp: Denies: dyspnea, productive cough, non-productive cough or wheezing GI: Reports: abdominal pain, nausea, vomiting, GI cramping, change in bowel habits and hematochezia : Denies: difficulty voiding or dysuria Musc: Reports: muscle cramps and muscle weakness; Denies: back pain Skin/Breast: Denies: rash or pruritus Neuro: Denies: headache(s), weakness in extremities or behavioral changes Gomez/Lymph: Denies: easy bruising PFSH ED PFSH: Medical History (Updated 12/30/19 @ 10:48 by ALVARADO Bailey) Anastomotic ulcer S/P gastric bypass Chronic post-traumatic stress disorder Generalized anxiety disorder Hypertension Major depressive disorder, recurrent severe without psychotic features Vomiting blood Surgical History H/O esophagogastroduodenoscopy (~06/2019) H/O: hysterectomy History of partial gastrectomy Hx of cholecystectomy S/P appendectomy Family History Mother CAD (coronary artery disease) Other Hypertension Denies family history of Anesthesia complication Bleeding disorder Social History Smoking and tobacco status: former smoker Alcohol intake: never Adopted: No Caregiver/support person: Yes Lives independently: Yes Household members: family and children Housing: House Marital status: service: No Current occupational status: employed Current occupational exposures/hazards: No Pets and animals: No History of recent travel: No Sexually active: No Current gender identity: Female Teresa/Confucianism: Bahai Special teresa needs: No Agree to transfusion: No Financial difficulty paying for basics: Decline to Answer Physical Exam Const: COMMON NORMALS: no acute distress, patient oriented x3 and alert GENERAL APPEARANCE: cooperative and frail appearing NUTRITIONAL APPEARANCE: thin ORIENTATION/CONSCIOUSNESS: Yes awake, Yes oriented to person, Yes oriented to place and Yes oriented to time HENMT: COMMON NORMALS: normocephalic and Normal external nose present HEAD & SCALP: normocephalic FACE & SINUS: face symmetric NOSE: Normal external nose present MOUTH: moist mucous membranes abnormal (Dry mucous membranes) Eye: COMMON NORMALS: Equal, round and reactive pupils present and EOMs intact bilaterally GENERAL EYE: appearance normal, both eyes and all related structures PUPIL: Yes Equal, round and reactive pupils present Neck/C-Spine: COMMON NORMALS: full ROM and no lymphadenopathy GENERAL: Yes normal visual inspection and Yes trachea midline CERVICAL SPINE: Yes cervical ROM normal Lymph: LYMPHATIC: no lymphadenopathy noted Chest: COMMONS NORMALS: normal inspection of the chest Resp: COMMON NORMALS: normal respiratory effort and clear to auscultation bilaterally AUSCULTATION: clear to auscultation bilaterally Cardio: COMMON NORMALS: regular rhythm, S1 normal heart sound present and S2 normal heart sound present RHYTHM: regular rhythm HEART SOUNDS: S1 normal heart sound present and S2 normal heart sound present GI: COMMON NORMALS: No hepatosplenomegaly present INSPECTION: Yes normal to inspection AUSCULTATION: Yes Hypoactive bowel sounds present PALPATION: Yes Tenderness to palpation present (GI) Details: LLQ, RLQ, LUQ and RUQ, Yes No hepatosplenomegaly present and Yes Hepatosplenomegaly present RECTAL EXAM: visual inspection normal, normal sphincter tone and heme positive stool : COMMON NORMALS: Yes no CVA tenderness BLADDER/KIDNEY EXAM: Yes no CVA tenderness Back/Pelvis: COMMON NORMALS: no CVA tenderness and thoracic and lumbar spine normal to inspection Extremity: COMMON NORMALS: normal to inspection and capillary refill normal Neuro: COMMON NORMALS: patient oriented x3 and no focal motor deficits SENSORIUM/ORIENTATION: Yes alert, Yes oriented to person, Yes oriented to place and Yes oriented to time Psych: COMMON NORMALS: mental status grossly normal, Normal thought process present and cooperative ACTIVITY/MOTOR BEHAVIOR: Yes appropriate eye contact THOUGHT PROCESS: Normal thought process present Skin: COMMON NORMALS: no rashes or lesions noted and turgor normal GENERAL SKIN EXAM: no rashes or lesions noted and turgor normal Course ED course: 44-year-old female patient presents to the emergency department with continued nausea vomiting diarrhea with abdominal pain that has been l ongstanding. CRP, ESR white blood count normal. She is not anemic. She requested Dilaudid and Ativan during her stay. Discussion with collaborative physician advised against medication secondary to history of opiate abuse and running out of Ativan too early. She has not exhibited vomiting here in the emergency department. She is requesting to leave AMA, reports wants the IV out does not wish to stay, potassium chloride has not completed infusion. She was administered Haldol and Toradol to help control nausea and abdominal pain. CT scan was not repeated due to numerous scan completed in the past. Hepatitis panel screen negative. She agrees to follow-up with Dr. Mckeon for repeat chemistry in 2 days. I counseled the patient regarding low potassium and that she can when she leaves the emergency department without IV infusion. She request to continue to leave and does not wish to stay. She is also requesting no further testing or follow-up presently. She has requested a refill of Delaxin, too expensive - 340B plan may help with financial assistance. Vital Signs: Vital signs: Vital Signs Temperature 97.3 F L 12/30/19 08:10 Pulse Rate 102 H 12/30/19 10:56 Respiratory Rate 20 H 12/30/19 10:56 Blood Pressure 127/96 12/30/19 10:56 Pulse Oximetry 96 12/30/19 10:56 MDM - Nausea/Vomiting/Diarrhea Lab Data: Labs: Lab Results 12/30/19 12/30/19 12/30/19 Range/Units 08:44 08:44 08:44 WBC 5.5 (4.0-10.0) 10^3/ uL RBC 4.33 (4.1-5.3) 10^6/u L Hgb 13.5 (11.5-15.3) g/dL Hct 43.0 (37.0-47.0) % MCV 99.3 H (81-99) fL MCH 31.2 (28.0-34.0) pg MCHC 31.4 (30.0-36.0) g/dL RDW 18.8 H (12.1-15.1) % Plt Count 406 H (130-400) 10^3/c mm MPV 8.8 (7.4-10.4) fL Neut % (Auto) 60.6 % Lymph % (Auto) 30.9 % [place] % (Auto) 5.6 % Eos % (Auto) 1.8 % Baso % (Auto) 0.9 % Neut # (Auto) 3.35 (1.8-7.7) 10^3/u L Lymph # (Auto) 1.7 (0.8-4.8) 10^3/u L [place] # (Auto) 0.3 (0.2-0.9) 10^3/u L Eos # (Auto) 0.1 (0.0-0.8) 10^3/u L Baso # (Auto) 0.1 (0.0-0.1) 10^3/u L Nucleated RBC % (a uto) 0 % Nucleated RBCs # 0.0 /100WBC ESR 2 (0-15) mm/hr Sodium 144 (136-145) mmol/L Potassium 2.8 L* (3.5-5.1) mmol/L Chloride 111 H (98-107) mmol/L Carbon Dioxide 19 L (22-29) mmol/L Anion Gap 16.8 (5-19) BUN 8 (6-20) mg/dL Creatinine 1.0 H (0.5-0.9) mg/dL GFR Calculation 59.7 L (90-130) mL/min Glucose 148 H (65-115) mg/dL Calculated Osmolal ity 299 H (285-295) mOsm/k g Calcium 8.3 L (8.5-10.5) mg/dL Total Bilirubin 0.9 (0.15-1.2) mg/dL AST 78 H (0-32) U/L ALT 129 H (0-33) U/L Alkaline Phosphata se 193 H (35-105) IU/L C-Reactive Protein 3.0 (0.0-4.9) mg/L Total Protein 4.9 L (6.6-8.7) g/dL Albumin 2.7 L (3.5-5.2) g/dL Globulin 2.2 (1.3-4.6) g/dL Lipase 63 H (13-60) U/L Urine Color (Yellow) Urine Appearance (CLEAR) Urine pH (5-7) Ur Specific Gravit y (1.005-1.030) Urine Protein (Negative) Urine Glucose (UA) (Normal) Urine Ketones (Negative) Urine Blood (Negative) Urine Nitrate (Negative) Urine Bilirubin (Negative) Urine Urobilinogen (Negative) mg/dL Ur Leukocyte Stephanie ase (Negative) Urine RBC (0-2) /hpf Urine WBC (0-5) /hpf Ur Squamous Epith Cells (0-5) /hpf Amorphous Sediment Urine Bacteria (NONE) /hpf Hyaline Casts /lpf Urine Mucus /hpf Hepatitis A IgM Ab (Nonreactive) Hep Bs Antigen (Nonreactive) Hep Bs Antibody (0-8.5) Hep B Core Total A b (Nonreactive) Hepatitis C Antibo dy (Nonreactive) 12/30/19 12/30/19 Range/Units 08:44 08:44 WBC (4.0-10.0) 10^3/ uL RBC (4.1-5.3) 10^6/u L Hgb (11.5-15.3) g/dL Hct (37.0-47.0) % MCV (81-99) fL MCH (28.0-34.0) pg MCHC (30.0-36.0) g/dL RDW (12.1-15.1) % Plt Count (130-400) 10^3/c mm MPV (7.4-10.4) fL Neut % (Auto) % Lymph % (Auto) % [place] % (Auto) % Eos % (Auto) % Baso % (Auto) % Neut # (Auto) (1.8-7.7) 10^3/u L Lymph # (Auto) (0.8-4.8) 10^3/u L [place] # (Auto) (0.2-0.9) 10^3/u L Eos # (Auto) (0.0-0.8) 10^3/u L Baso # (Auto) (0.0-0.1) 10^3/u L Nucleated RBC % (a uto) % Nucleated RBCs # /100WBC ESR (0-15) mm/hr Sodium (136-145) mmol/L Potassium (3.5-5.1) mmol/L Chloride (98-107) mmol/L Carbon Dioxide (22-29) mmol/L Anion Gap (5-19) BUN (6-20) mg/dL Creatinine (0.5-0.9) mg/dL GFR Calculation (90-130) mL/min Glucose (65-115) mg/dL Calculated Osmolal ity (285-295) mOsm/k g Calcium (8.5-10.5) mg/dL Total Bilirubin (0.15-1.2) mg/dL AST (0-32) U/L ALT (0-33) U/L Alkaline Phosphata se (35-105) IU/L C-Reactive Protein (0.0-4.9) mg/L Total Protein (6.6-8.7) g/dL Albumin (3.5-5.2) g/dL Globulin (1.3-4.6) g/dL Lipase (13-60) U/L Urine Color Yellow (Yellow) Urine Appearance Sl hazy (CLEAR) Urine pH 5 (5-7) Ur Specific Gravit y 1.015 (1.005-1.030) Urine Protein Neg (Negative) Urine Glucose (UA) Norm (Normal) Urine Ketones Negative (Negative) Urine Blood Neg (Negative) Urine Nitrate Negative (Negative) Urine Bilirubin Neg (Negative) Urine Urobilinogen Norm (Negative) mg/dL Ur Leukocyte Stephanie ase Negative (Negative) Urine RBC None (0-2) /hpf Urine WBC 5-10 H (0-5) /hpf Ur Squamous Epith Cells 10-15 H (0-5) /hpf Amorphous Sediment Not Reportable Urine Bacteria 1+ H (NONE) /hpf Hyaline Casts 5-10 H /lpf Urine Mucus 2+ /hpf Hepatitis A IgM Ab Non-reactive (Nonreactive) Hep Bs Antigen Non-reactive (Nonreactive) Hep Bs Antibody 14.2 H (0-8.5) Hep B Core Total A b Non-reactive (Nonreactive) Hepatitis C Antibo dy Non-reactive (Nonreactive) Discharge Plan Discharge Patient Disposition: Left Against Medical Advice Clinical Impression: Hypokalemia Nausea & vomiting Qualifiers: Vomiting type: unspecified Vomiting Intractability: unspecified Qualified Code(s): R11.2 - Nausea with vomiting, unspecified Abdominal pain Qualifiers: Abdominal location: generalized Qualified Code(s): R10.84 - Generalized abdominal pain Condition: Stable Prescriptions: New potassium chloride 10 mEq capsule, extended release 10 meq PO BID Qty: 30 RF: 0 dexlansoprazole 60 mg capsule,biphase delayed releas 60 mg PO DAILY 56 Days RF: 0 Discontinued aspirin [Aspir-81] 81 mg Tablet,Delayed Release (Dr/Ec) 81 mg PO DAILY RF: 0 No Action citalopram [Celexa] 20 mg tablet 20 mg PO QAM Qty: 90 RF: 2 trazodone 150 mg tablet 150 mg PO BEDTIME PRN (Reason: sleep) Qty: 90 RF: 2 erythromycin 250 mg tablet 250 mg PO BID Qty: 60 RF: 3 Dexilant 60 mg capsule,biphase delayed releas 60 mg PO BID Qty: 60 RF: 5 sucralfate 1 gram Tablet 1 g PO TID RF: 0 acetaminophen [Tylenol Extra Strength] 500 mg Tablet 500 - 1,000 mg PO Q6H PRN (Reason: Pain) RF: 0 multivitamin [Multiple Vitamins] Tablet 1 tab PO DAILY RF: 0 metoprolol tartrate 25 mg Tablet 25 mg PO BID RF: 0 lorazepam [Ativan] 1 mg tablet 1 mg PO Q8H PRN (Reason: prn nausea) 7 Days Qty: 21 RF: 0 tramadol [Ultram] 50 mg Tablet 50 mg PO Q8H PRN (Reason: Pain) Qty: 14 RF: 0 dicyclomine 20 mg tablet 20 mg PO QID PRN (Reason: stomach pain) RF: 0 Discharge Orders: Discharge Order (Routine); Ordered 12/30/19 Ordered By: Christa Sandra Referrals: Derrick Mckeon MD [Physician] - 01/02/20 9:30 am Rosi Shell NP [Primary Care Provider] - Discharge Diet: Advance as tolerated and Clear Liquid Discharge Activity: Limit activity as instructed Patient Instructions: Acute Nausea and Vomiting (ED), Abdominal Pain (ED) Activity Restrictions/Additional Instructions: Follow-up with Dr. Mckeon for repeat chemistry on as scheduled Return to the emergency department if you are unable to tolerate oral fluids or develop worsening abdominal pain A prescription for Dexilant has been prescribed for you as requested Continue current medications Stop aspirin due to gastric upset Clear liquid diet then may advance as tolerated, avoid foods that may upset your stomach such as milk, cheese or spicy fried foods. Advance to crackers or bland foods as tolerated Discharge Date/Time: 12/30/19 10:58 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 of Care Code ED Director Supply for [employer] Fwd Exam Comprehensive
[2019-12-30 09:01] LABS: Basophils # 0.1 10^3/uL (0.0-0.1); Basophils % 0.9 %; Eosinophils # 0.1 10^3/uL (0.0-0.8); Eosinophils % 1.8 %; Hemoglobin 13.5 g/dL (11.5-15.3); Lymphocytes # 1.7 10^3/uL (0.8-4.8); Lymphocytes % 30.9 %; Mean Corpuscular HGB Conc 31.4 g/dL (30.0-36.0); Mean Corpuscular Hemoglobin 31.2 pg (28.0-34.0); Mean Corpuscular Volume 99.3 fL (81-99); Mean Platelet Volume 8.8 fL (7.4-10.4); Monocytes # 0.3 10^3/uL (0.2-0.9); Monocytes % 5.6 %; Neutrophils # 3.35 10^3/uL (1.8-7.7); Neutrophils % 60.6 %; Nucleated Red Blood Cells % 0 %; Platelet Count 406 10^3/cmm (130-400); Red Blood Count 4.33 10^6/uL (4.1-5.3); Red Cell Distribution Width 18.8 % (12.1-15.1); White Blood Count 5.5 10^3/uL (4.0-10.0)
[2019-12-30 09:12] LABS: Add Urine Microscopic? YES; Bilirubin Urine Neg (Negative); Blood Urine Neg (Negative); Glucose Urine UA Norm (Normal); Ketones Urine Negative (Negative); Leukocyte Esterase Urine Negative (Negative); Nitrate Urine Negative (Negative); Protein Urine Neg (Negative); Specific Gravity, Urine 1.015 (1.005-1.030); Urine Appearance SL Hazy (CLEAR); Urine Color Yellow (Yellow); Urobilinogen Urine Norm (Negative); pH Urine 5 (5-7)
[2019-12-30 09:17] LABS: Add Urine Culture? No; Bacteria Urine 1+ /hpf; Mucus Urine 2+ /hpf
[2019-12-30 09:18] LABS: Alanine Aminotransferase 129 U/L (0-33); Albumin Level 2.7 g/dL (3.5-5.2); Alkaline Phosphatase 193 IU/L (35-105); Anion Gap 16.8 (5-19); Aspartate Amino Transferase 78 U/L (0-32); Blood Urea Nitrogen 8 mg/dL (6-20); Calcium 8.3 mg/dL (8.5-10.5); Carbon Dioxide 19 mmol/L (22-29); Chloride 111 mmol/L (98-107); Globulin 2.2 g/dL (1.3-4.6); Glomerular Filtration Rate 59.7 mL/min (90-130); Glucose 148 mg/dL (65-115); Lipase 63 U/L (13-60); Osmolality Calculated 299 mOsm/kg (285-295); Sodium 144 mmol/L (136-145); Total Bilirubin 0.9 mg/dL (0.15-1.2); Total Protein 4.9 g/dL (6.6-8.7)
[2019-12-30 09:22] LABS: Potassium 2.8 mmol/L (3.5-5.1)
[2019-12-30] MEDS: potassium chloride premix 40 MEQ/100 ML PREMIX 25 MEQ IV (09:33)
[2019-12-30] MEDS: pantoprazole 40 mg SDV IVP (09:35)
[2019-12-30] MEDS: sodium chloride 0.9% 500 ML 999 ML IV (09:35)
[2019-12-30 09:43] LABS: Erythrocyte Sedimentation Rate 2 mm/hr (0-15)
[2019-12-30] MEDS: ketorolac 30 mg/mL INJ IVP (10:09)
[2019-12-30] MEDS: haloperidol inj 5 mg/mL INJ 1 mL IVP (10:10)
[2019-12-30 10:36] LABS: Hepatitis A Antibody IgM Non-Reactive (Nonreactive); Hepatitis B Core AB, Total Non-Reactive (Nonreactive); Hepatitis B Surface AB 14.2 (0-8.5); Hepatitis B Surface Antigen Non-Reactive (Nonreactive); Hepatitis C Virus Antibody Non-Reactive (Nonreactive)
[2019-12-30] MEDS: potassium chloride ER 10 mEq Tablet 40 MEQ PO (10:47)
--- NOTE | 2019-12-30 10:49 | DCPLANNER ---
human resources manager was asked to schedule a follow up appointment for patient with Dr. Mckeon for later this week. human resources manager called the office of Dr. Mckeon, spoke with Geetha, an appointment had been scheduled for January at 9:[address] Mckeon. human resources manager informed ED physician, and patient of the scheduled appointment.
[2019-12-30 10:56] VITALS: BP 127/96; PULSE 102; RESP 20; O2SAT 96
--- NOTE | 2020-01-24 17:55 | DCPLANNER ---
Patient had a follow up appointment scheduled for 01.02.[address] Mckeon - patient did not attend appointment.
== END 2019-12-30 10:58 | disposition left against medical advice (07) ==
PROVIDERS: Emergency Provider Nurse Practitioner Family; PCP Nurse Practitioner Family
DX: E87.6 Hypokalemia (principal); R11.2 Nausea with vomiting, unspecified; R10.84 Generalized abdominal pain; Z53.21 Procedure and treatment not carried out due to patient leaving prior to being seen by health care provider; Z87.891 Personal history of nicotine dependence; I10 Essential (primary) hypertension
CPT/HCPCS: 12345; 80053; 81001; 83690; 85025; 85651; 86140; 86705; 86706; 86709; 86803; 87340; 96365; 96366; 96375; 99282; 99284; C9113; J1630; J1885; J3480; J7040

== ENCOUNTER 2020-01-27 10:34 | Outpatient (CLI) | payer MEDICAID, SELFPAY ==
--- NOTE | 2020-01-27 10:00 | NM_ITS ---
WS: [id number] NUCLEAR MEDICINE GASTRIC EMPTYING EXAMINATION HISTORY: Presumed gastroparesis COMPARISON: None available. TECHNIQUE: The patient ingested a meal containing 1.07 mCi of Tc 99m sulfur colloid mixed with eggs. The patient was placed in supine position and imaging over the abdomen was performed for a total of 9 0 minutes. Computer acquisition with the region of interest placed over the stomach to evaluate gastr ic emptying half-time. Radionuclide noted within the stomach. A 120 minutes post meal there is no significant emptying of th e stomach. No activity within the proximal small bowel or esophagus. NM/[place] [address] IMPRESSION: Significant gastroparesis at 2 hours post meal.
== END 2020-01-27 10:35 | disposition home or self-care (01) ==
LOC: RAD 10:37
PROVIDERS: PCP Nurse Practitioner Family; Visit Provider Internal Medicine
DX: K31.84 Gastroparesis (principal)
CPT/HCPCS: 78264; A9541

== ENCOUNTER 2020-02-03 16:27 | Inpatient (IN) | payer MEDICAID, SELFPAY ==
[2020-02-03 16:36] VITALS: BP 99/73; PULSE 89; RESP 16; TEMP 36.6; O2SAT 95; BMI 23.8
--- NOTE | 2020-02-03 20:09 | ECG_ITS ---
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 Measurements Intervals [place] Rate: 89 P: 37 WV: 145 QRS: -9 QRSD: 85 T: 8 QT: 354 QTc: 431 Interpretive Statements SINUS RHYTHM LOW QRS VOLTAGE IN PRECORDIAL LEADS [QRS DEFLECTION < 1.0 mV IN CHEST LEADS] NONSPECIFIC ST & T-WAVE ABNORMALITY Compared to ECG 11/06/2019 03:44:20 Low QRS voltage now present T-wave abnormality still present Electronically Signed On 02-04-2020 20:12:15 [employer] DEVELOPMENT CONSULTANT by Rani Monique M.D. [id number]
--- NOTE | 2020-02-03 20:11 | CTR_ITS ---
PROCEDURE INFORMATION: Exam: CT Abdomen And Pelvis Without Contrast Exam date and time: 02/03/2020 8:54 PM Age: 44 years old Clinical indication: Nausea and vomiting and other: Diarrhea; Prior surgery; Surgery type: Ulcer, appy, . gb, tubal; Additional info: Abdominal pain TECHNIQUE: Imaging protocol: Computed tomography of the abdomen and pelvis without contrast. Radiation optimization: All CT scans at this facility use at least one of these dose optimization techniques: automated exposure control; mA and/or kV adjustment per patient size (includes targeted exams where dose is matched to clinical indication); or iterative reconstruction. COMPARISON: CT abdomen pelvis wo con [id number] 11/20/2019 4:15 PM RADIATION DOSE METRICS: Total DLP (mGy-cm): 404.21 FINDINGS: Pleural space: Small bilateral pleural effusions. Heart: Pericardial effusion. Liver: Diffuse fatty infiltration of the liver. Gallbladder and bile ducts: Cholecystectomy. The bile ducts are within normal limits. Pancreas: Normal. No ductal dilation. Spleen: Normal. No splenomegaly. Adrenal glands: Normal. No mass. Kidneys and ureters: Normal. No hydronephrosis. Stomach and bowel: Small scattered air-fluid levels within nonobstructed small bowel. Mild wall thickening suspected within the sigmoid colon and rectum. Perirectal fat stranding. Appendix: The appendix is not visible. Right lower quadrant clips. Intraperitoneal space: Mild ascites in the pelvis and left upper quadrant. No free air. Vasculature: Unremarkable. No abdominal aortic aneurysm. Lymph nodes: Unremarkable. No enlarged lymph nodes. Urinary bladder: Unremarkable as visualized. Reproductive: The uterus is absent. Small retained ovaries. Bones/joints: Mild scoliosis. No compression fracture. Soft tissues: Perigastric surgical clips and sutures. Mild body wall edema. CT/CT abdomen pelvis con [id number] IMPRESSION: 1. Mild wall thickening in the sigmoid colon and rectum with perirectal fat stranding could indicate infectious or inflammatory colitis. 2. Mild ascites. 3. Small pleural effusions. 4. Pericardial effusion. Radiation Dose CTDIVOL = (mGy): DLP = 404.21 (mGy-cm)
--- NOTE | 2020-02-03 20:13 | W.ED.NAVMDI ---
HPI - Nausea/Vomiting/Diarrhea General: Chief complaint: Nausea/Vomiting/Diarrhea Stated complaint: n/v blood Time Seen by Provider: 02/03/20 20:05 Source: patient and family Mode of arrival: ambulatory Limitations: no limitations History of Present Illness: HPI Narrative: Therese is a 44-year-old female well-known to me who comes in complaining of abdominal pain and vomiting. She states she is been vomiting blood and had blood in her stools. Patient has history of chronic pancreatitis. She denies any fevers or chills. She denies any vaginal bleeding or discharge. She denies any urinary symptoms such as urinary frequency/urgency or dysuria. Patient states anytime she eats or drinks makes things worse. She has had a loss of appetite. Patient denies a history of liver disease or esophageal varices. Associated nausea: Yes Associated symtoms: Reports nausea; Denies change in vision, chest pain, diaphoresis, dizziness, dysuria, fatigue, headache(s), malaise, palpitations or syncope Review of Systems Const: Denies: fever(s), chills, body aches, fatigue, malaise or diaphoresis Eyes: Denies: change in vision, blurry vision, photophobia, eye discomfort, eye discharge, eye redness or yellow eyes ENMT: Denies: throat pain, odynophagia, hoarseness, swelling of lips/tongue, ear or mastoid pain, ear discharge, change in hearing or nasal discharge Card: Denies: chest pain, palpitations, irregular heart rhythm, edema, lightheadedness, syncope, pre-syncope, dyspnea on exertion or orthopnea Resp: Denies: dyspnea, productive cough, non-productive cough, wheezing, hemoptysis or chest congestion GI: Reports: abdominal pain, nausea, vomiting, hematemesis, diarrhea, hematochezia and melena; Denies: coffee ground emesis, heartburn, constipation or GI cramping : Denies: flank pain, dysuria, urinary frequency, urinary urgency or hematuria Musc: Denies: neck pain, back pain, extremity pain, extremity swelling, joint pain, joint swelling, joint redness, joint warmth or joint stiffness Skin/Breast: Denies: rash, pruritus, erythema, skin pain or skin tenderness Neuro: Denies: headache(s), numbness in extremities, weakness in extremities, sensory changes, lack of coordination, difficulty walking, dizziness, vertigo, confusion, Slurred speech present or seizure-like activity Gomez/Lymph: Denies: easy bruising, easy bleeding, petechiae, purpura or enlarged lymph nodes All/Imm: Denies: urticaria, throat swelling, tongue swelling, facial swelling or acute wheezing PFSH ED PFSH: Medical History Anastomotic ulcer S/P gastric bypass Chronic post-traumatic stress disorder Generalized anxiety disorder Hypertension Major depressive disorder, recurrent severe without psychotic features Vomiting blood Surgical History H/O esophagogastroduodenoscopy (~06/2019) H/O: hysterectomy History of partial gastrectomy Hx of cholecystectomy S/P appendectomy Family History Mother CAD (coronary artery disease) Other Hypertension Denies family history of Anesthesia complication Bleeding disorder Social History Smoking and tobacco status: former smoker Alcohol intake: never Adopted: No Caregiver/support person: Yes Lives independently: Yes Household members: family and children Housing: House Marital status: service: No Current occupational status: employed Current occupational exposures/hazards: No Pets and animals: No History of recent travel: No Sexually active: No Current gender identity: Female Teresa/Sabianism: Yazidism Special teresa needs: No Agree to transfusion: No Financial difficulty paying for basics: Decline to Answer Physical Exam Const: COMMON NORMALS: no acute distress, patient oriented x3, no limitations and alert GENERAL APPEARANCE: cooperative HENMT: COMMON NORMALS: normocephalic, atraumatic, external ears normal, EAC's normal and Normal external nose present HEAD & SCALP: normal to inspection, normocephalic and atraumatic FACE & SINUS: normal facial exam and face symmetric NOSE: Normal external nose present and Normal nares present EXTERNAL EAR: Yes external ears normal EXTERNAL AUDITORY CANAL: EAC's normal MOUTH: Normal oral and palatal mucosa present, lip normal and tongue normal Eye: COMMON NORMALS: Equal, round and reactive pupils present and conjunctivae normal GENERAL EYE: appearance normal, both eyes and all related structures ALIGNMENT: Yes alignment normal PERIORBITAL: periorbital findings normal EYELID: eyelids normal CONJUNCTIVA: Yes conjunctivae normal SCLERA: sclerae normal PUPIL: Yes Equal, round and reactive pupils present Neck/C-Spine: COMMON NORMALS: full ROM, no lymphadenopathy, supple, no meningeal signs and no JVD GENERAL: Yes normal visual inspection and Yes trachea midline Chest: COMMONS NORMALS: normal inspection of the chest and normal palpation of entire chest wall Resp: COMMON NORMALS: normal respiratory effort, No retractions, No use of accessory muscles and clear to auscultation bilaterally EFFORT & INSPECTION: Yes able to speak in complete sentences and Yes symmetric chest movement AUSCULTATION: clear to auscultation bilaterally, no crackles, no rales, no rhonchi and no wheezes Cardio: COMMON NORMALS: no JVD, regular rate, regular rhythm, S1 normal heart sound present and S2 normal heart sound present RATE: regular rate RHYTHM: regular rhythm HEART SOUNDS: S1 normal heart sound present, S2 normal heart sound present, no click, no gallops, no murmurs and no rubs GI: COMMON NORMALS: Soft to palpation and No hepatosplenomegaly present PALPATION: Yes Soft to palpation, No Tenderness to palpation present (GI), No Guarding due to palpation present (GI), No Rigid due to palpation, Yes No hepatosplenomegaly present, No Hernia present, No Palpable mass present and No Pulsatile mass present : COMMON NORMALS: Yes no CVA tenderness BLADDER/KIDNEY EXAM: Yes no CVA tenderness EXTERNAL FEMALE EXAM: No Hernia present Back/Pelvis: COMMON NORMALS: no CVA tenderness, thoracic and lumbar spine normal to inspection, no thoracic nor lumbar tenderness and thoraco-lumbar ROM normal Extremity: COMMON NORMALS: normal to inspection, full ROM, capillary refill normal, no joint enlargement, no clubbing, cyanosis or edema and no calf tenderness Neuro: COMMON NORMALS: patient oriented x3, CN's II-XII intact bilaterally, moves all extremities, no focal motor deficits and no sensory deficits noted SENSORIUM/ORIENTATION: Yes alert MENINGEAL SIGNS: Yes no meningeal signs SPEECH: speech normal Psych: COMMON NORMALS: mental status grossly normal, Normal thought process present, cooperative, normal affect, speech normal and activity/motor behavior normal SPEECH: Yes normal speech THOUGHT PROCESS: Normal thought process present Skin: COMMON NORMALS: no rashes or lesions noted, turgor normal, no jaundice, no petechiae and no mottling GENERAL SKIN EXAM: no rashes or lesions noted and turgor normal Procedures EJ/Peripheral Line Arm L: Time Out Performed: Yes Skin Cleansed in Sterile Fashion: Yes Size (gauge): 20 IV Secured and Dressing Applied: Yes Patient Tolerated Procedure: well Additional Comments: Ultrasound utilized for the procedure. Course Vital Signs: Vital signs: Vital Signs Temperature 97.9 F 02/03/20 16:36 Pulse Rate 85 02/04/20 03:00 Respiratory Rate 14 02/04/20 03:00 Blood Pressure 116/87 02/04/20 03:00 Pulse Oximetry 99 02/04/20 03:00 MDM - Nausea/Vomiting/Diarrhea MDM Narrative: Medical decision making narrative: Patient comes in claiming she is having blood in her stools and blood in her vomit. She is not vomited here. She appeared pale upon arrival and blood was ordered to have 1 back but she is not been tachycardic, hypotensive and her hemoglobin and hematocrit counts are normal. Patient feels as though she is dehydrated so I placed a second ultrasound-guided IV to hydrate her as she feels like she cannot go home. I reviewed the case with Dr. Knight agrees to admit and would like Dr. Díaz to consult. Case was reviewed with Dr. Díaz and he agrees to do so. Lab Data: Attestation: I reviewed the patient's lab results. Labs: Lab Results 02/03/20 02/03/20 02/03/20 Range/Units 20:30 20:30 20:30 WBC 7.0 (4.0-10.0) 10^3/ uL RBC 3.16 L (4.1-5.3) 10^6/u L Hgb 12.0 (11.5-15.3) g/dL Hct 38.7 (37.0-47.0) % MCV 122.5 H (81-99) fL MCH 38.0 H (28.0-34.0) pg MCHC 31.0 (30.0-36.0) g/dL RDW 19.2 H (12.1-15.1) % Plt Count 225 (130-400) 10^3/c mm MPV 8.9 (7.4-10.4) fL Neut % (Auto) 62.3 % Lymph % (Auto) 28.1 % Branch % (Auto) 8.0 % Eos % (Auto) 0.4 % Baso % (Auto) 0.6 % Reticulocyte % (Au to) % Neut # (Auto) 4.36 (1.8-7.7) 10^3/u L Lymph # (Auto) 2.0 (0.8-4.8) 10^3/u L Branch # (Auto) 0.6 (0.2-0.9) 10^3/u L Eos # (Auto) 0.0 (0.0-0.8) 10^3/u L Baso # (Auto) 0.0 (0.0-0.1) 10^3/u L Nucleated RBC % (a uto) 0 % Nucleated RBCs # 0.0 /100WBC ESR (0-15) mm/hr PT 17.10 H (12.1-14.9) SECO NDS INR 1.35 H (0.8-1.2) Sodium 148 H (136-145) mmol/L Potassium 4.4 (3.5-5.1) mmol/L Chloride 115 H (98-107) mmol/L Carbon Dioxide 22 (22-29) mmol/L Anion Gap 15.4 (5-19) BUN 7 (6-20) mg/dL Creatinine 0.8 (0.5-0.9) mg/dL GFR Calculation 77.2 L (90-130) mL/min Glucose 101 (65-115) mg/dL Calculated Osmolal ity 304 H (285-295) mOsm/k g Calcium 8.2 L (8.5-10.5) mg/dL Phosphorus (2.5-4.5) mg/dL Magnesium (1.7-2.3) mg/dL Iron (37-145) ug/dL TIBC mcg/dl % Saturation (20-50) % Unsat Iron Binding (112-347) ug/dL Ferritin (15-150) ng/mL Total Bilirubin 1.0 (0.15-1.2) mg/dL AST 41 H (0-32) U/L ALT 55 H (0-33) U/L Alkaline Phosphata se 196 H (35-105) IU/L Troponin T Baselin e (0-10) ng/L Troponin T 120 Min [place] (0-10) ng/L Delta Troponin T (0-10) ABS# Troponin T Hi Sens 6Hr (0-10) ng/L Troponin T Hi Sens 6Hr Delta (0-12) ng/L C-Reactive Protein (0.0-4.9) mg/L Total Protein 4.7 L (6.6-8.7) g/dL Albumin 2.2 L (3.5-5.2) g/dL Globulin 2.5 (1.3-4.6) g/dL Lipase 12 L (13-60) U/L Vitamin B12 (232-1245) pg/mL Folate (4.8-37.3) ng/mL Procalcitonin (0-0.5) ng/mL Ethyl Alcohol (0-10) mg/dL Blood Type Rho(D) Type Antibody Screen Crossmatch 02/03/20 02/03/20 02/03/20 Range/Units 20:30 20:30 20:30 WBC (4.0-10.0) 10^3/ uL RBC (4.1-5.3) 10^6/u L Hgb (11.5-15.3) g/dL Hct (37.0-47.0) % MCV (81-99) fL MCH (28.0-34.0) pg MCHC (30.0-36.0) g/dL RDW (12.1-15.1) % Plt Count (130-400) 10^3/c mm MPV (7.4-10.4) fL Neut % (Auto) % Lymph % (Auto) % Branch % (Auto) % Eos % (Auto) % Baso % (Auto) % Reticulocyte % (Au to) % Neut # (Auto) (1.8-7.7) 10^3/u L Lymph # (Auto) (0.8-4.8) 10^3/u L Branch # (Auto) (0.2-0.9) 10^3/u L Eos # (Auto) (0.0-0.8) 10^3/u L Baso # (Auto) (0.0-0.1) 10^3/u L Nucleated RBC % (a uto) % Nucleated RBCs # /100WBC ESR (0-15) mm/hr PT (12.1-14.9) SECO NDS INR (0.8-1.2) Sodium (136-145) mmol/L Potassium (3.5-5.1) mmol/L Chloride (98-107) mmol/L Carbon Dioxide (22-29) mmol/L Anion Gap (5-19) BUN (6-20) mg/dL Creatinine (0.5-0.9) mg/dL GFR Calculation (90-130) mL/min Glucose (65-115) mg/dL Calculated Osmolal ity (285-295) mOsm/k g Calcium (8.5-10.5) mg/dL Phosphorus (2.5-4.5) mg/dL Magnesium (1.7-2.3) mg/dL Iron 47 (37-145) ug/dL TIBC 90 mcg/dl % Saturation 52.2 H (20-50) % Unsat Iron Binding 43 L (112-347) ug/dL Ferritin 178 H (15-150) ng/mL Total Bilirubin (0.15-1.2) mg/dL AST (0-32) U/L ALT (0-33) U/L Alkaline Phosphata se (35-105) IU/L Troponin T Baselin e 10 (0-10) ng/L Troponin T 120 Min [place] (0-10) ng/L Delta Troponin T (0-10) ABS# Troponin T Hi Sens 6Hr (0-10) ng/L Troponin T Hi Sens 6Hr Delta (0-12) ng/L C-Reactive Protein 12.5 H (0.0-4.9) mg/L Total Protein (6.6-8.7) g/dL Albumin (3.5-5.2) g/dL Globulin (1.3-4.6) g/dL Lipase (13-60) U/L Vitamin B12 1908 H (232-1245) pg/mL Folate (4.8-37.3) ng/mL Procalcitonin 0.85 H (0-0.5) ng/mL Ethyl Alcohol < 10 (0-10) mg/dL Blood Type A Positive Rho(D) Type Positive Antibody Screen Negative Crossmatch See Detail 02/03/20 02/03/20 02/03/20 Range/Units 20:30 20:30 20:30 WBC (4.0-10.0) 10^3/ uL RBC (4.1-5.3) 10^6/u L Hgb (11.5-15.3) g/dL Hct (37.0-47.0) % MCV (81-99) fL MCH (28.0-34.0) pg MCHC (30.0-36.0) g/dL RDW (12.1-15.1) % Plt Count (130-400) 10^3/c mm MPV (7.4-10.4) fL Neut % (Auto) % Lymph % (Auto) % Branch % (Auto) % Eos % (Auto) % Baso % (Auto) % Reticulocyte % (Au to) 5.2500 % Neut # (Auto) (1.8-7.7) 10^3/u L Lymph # (Auto) (0.8-4.8) 10^3/u L Branch # (Auto) (0.2-0.9) 10^3/u L Eos # (Auto) (0.0-0.8) 10^3/u L Baso # (Auto) (0.0-0.1) 10^3/u L Nucleated RBC % (a uto) % Nucleated RBCs # /100WBC ESR 10 (0-15) mm/hr PT (12.1-14.9) SECO NDS INR (0.8-1.2) Sodium (136-145) mmol/L Potassium (3.5-5.1) mmol/L Chloride (98-107) mmol/L Carbon Dioxide (22-29) mmol/L Anion Gap (5-19) BUN (6-20) mg/dL Creatinine (0.5-0.9) mg/dL GFR Calculation (90-130) mL/min Glucose (65-115) mg/dL Calculated Osmolal ity (285-295) mOsm/k g Calcium (8.5-10.5) mg/dL Phosphorus (2.5-4.5) mg/dL Magnesium (1.7-2.3) mg/dL Iron (37-145) ug/dL TIBC mcg/dl % Saturation (20-50) % Unsat Iron Binding (112-347) ug/dL Ferritin (15-150) ng/mL Total Bilirubin (0.15-1.2) mg/dL AST (0-32) U/L ALT (0-33) U/L Alkaline Phosphata se (35-105) IU/L Troponin T Baselin e (0-10) ng/L Troponin T 120 Min [place] (0-10) ng/L Delta Troponin T (0-10) ABS# Troponin T Hi Sens 6Hr (0-10) ng/L Troponin T Hi Sens 6Hr Delta (0-12) ng/L C-Reactive Protein (0.0-4.9) mg/L Total Protein (6.6-8.7) g/dL Albumin (3.5-5.2) g/dL Globulin (1.3-4.6) g/dL Lipase (13-60) U/L Vitamin B12 (232-1245) pg/mL Folate 11.7 (4.8-37.3) ng/mL Procalcitonin (0-0.5) ng/mL Ethyl Alcohol (0-10) mg/dL Blood Type Rho(D) Type Antibody Screen Crossmatch 02/03/20 02/04/20 02/04/20 Range/Units 22:36 02:20 02:20 WBC 5.2 (4.0-10.0) 10^3/ uL RBC 2.64 L (4.1-5.3) 10^6/u L Hgb 10.2 L (11.5-15.3) g/dL Hct 32.6 L (37.0-47.0) % MCV 123.5 H (81-99) fL MCH 38.6 H (28.0-34.0) pg MCHC 31.3 (30.0-36.0) g/dL RDW 19.0 H (12.1-15.1) % Plt Count 131 (130-400) 10^3/c mm MPV 9.1 (7.4-10.4) fL Neut % (Auto) 56.9 % Lymph % (Auto) 30.9 % Branch % (Auto) 9.7 % Eos % (Auto) 1.3 % Baso % (Auto) 0.6 % Reticulocyte % (Au to) % Neut # (Auto) 2.98 (1.8-7.7) 10^3/u L Lymph # (Auto) 1.6 (0.8-4.8) 10^3/u L Branch # (Auto) 0.5 (0.2-0.9) 10^3/u L Eos # (Auto) 0.1 (0.0-0.8) 10^3/u L Baso # (Auto) 0.0 (0.0-0.1) 10^3/u L Nucleated RBC % (a uto) 0 % Nucleated RBCs # 0.0 /100WBC ESR (0-15) mm/hr PT (12.1-14.9) SECO NDS INR (0.8-1.2) Sodium (136-145) mmol/L Potassium (3.5-5.1) mmol/L Chloride (98-107) mmol/L Carbon Dioxide (22-29) mmol/L Anion Gap (5-19) BUN (6-20) mg/dL Creatinine (0.5-0.9) mg/dL GFR Calculation (90-130) mL/min Glucose (65-115) mg/dL Calculated Osmolal ity (285-295) mOsm/k g Calcium (8.5-10.5) mg/dL Phosphorus (2.5-4.5) mg/dL Magnesium (1.7-2.3) mg/dL Iron (37-145) ug/dL TIBC mcg/dl % Saturation (20-50) % Unsat Iron Binding (112-347) ug/dL Ferritin (15-150) ng/mL Total Bilirubin (0.15-1.2) mg/dL AST (0-32) U/L ALT (0-33) U/L Alkaline Phosphata se (35-105) IU/L Troponin T Baselin e (0-10) ng/L Troponin T 120 Min [place] 11.95 H (0-10) ng/L Delta Troponin T 1.95 (0-10) ABS# Troponin T Hi Sens 6Hr 8.79 (0-10) ng/L Troponin T Hi Sens 6Hr Delta -1.21 L (0-12) ng/L C-Reactive Protein (0.0-4.9) mg/L Total Protein (6.6-8.7) g/dL Albumin (3.5-5.2) g/dL Globulin (1.3-4.6) g/dL Lipase (13-60) U/L Vitamin B12 (232-1245) pg/mL Folate (4.8-37.3) ng/mL Procalcitonin (0-0.5) ng/mL Ethyl Alcohol (0-10) mg/dL Blood Type Rho(D) Type Antibody Screen Crossmatch 02/04/20 02/04/20 02/04/20 Range/Units 02:20 02:20 02:20 WBC (4.0-10.0) 10^3/ uL RBC (4.1-5.3) 10^6/u L Hgb (11.5-15.3) g/dL Hct (37.0-47.0) % MCV (81-99) fL MCH (28.0-34.0) pg MCHC (30.0-36.0) g/dL RDW (12.1-15.1) % Plt Count (130-400) 10^3/c mm MPV (7.4-10.4) fL Neut % (Auto) % Lymph % (Auto) % Branch % (Auto) % Eos % (Auto) % Baso % (Auto) % Reticulocyte % (Au to) % Neut # (Auto) (1.8-7.7) 10^3/u L Lymph # (Auto) (0.8-4.8) 10^3/u L Branch # (Auto) (0.2-0.9) 10^3/u L Eos # (Auto) (0.0-0.8) 10^3/u L Baso # (Auto) (0.0-0.1) 10^3/u L Nucleated RBC % (a uto) % Nucleated RBCs # /100WBC ESR (0-15) mm/hr PT 18.00 H (12.1-14.9) SECO NDS INR 1.44 H (0.8-1.2) Sodium 146 H (136-145) mmol/L Potassium 3.4 L (3.5-5.1) mmol/L Chloride 115 H (98-107) mmol/L Carbon Dioxide 23 (22-29) mmol/L Anion Gap 11.4 (5-19) BUN 7 (6-20) mg/dL Creatinine 0.9 (0.5-0.9) mg/dL GFR Calculation 67.4 L (90-130) mL/min Glucose 107 (65-115) mg/dL Calculated Osmolal ity 300 H (285-295) mOsm/k g Calcium 7.5 L (8.5-10.5) mg/dL Phosphorus 3.4 (2.5-4.5) mg/dL Magnesium 1.9 (1.7-2.3) mg/dL Iron (37-145) ug/dL TIBC mcg/dl % Saturation (20-50) % Unsat Iron Binding (112-347) ug/dL Ferritin (15-150) ng/mL Total Bilirubin 0.7 (0.15-1.2) mg/dL AST 29 (0-32) U/L ALT 45 H (0-33) U/L Alkaline Phosphata se 163 H (35-105) IU/L Troponin T Baselin e (0-10) ng/L Troponin T 120 Min [place] (0-10) ng/L Delta Troponin T (0-10) ABS# Troponin T Hi Sens 6Hr (0-10) ng/L Troponin T Hi Sens 6Hr Delta (0-12) ng/L C-Reactive Protein (0.0-4.9) mg/L Total Protein 3.9 L (6.6-8.7) g/dL Albumin 1.9 L (3.5-5.2) g/dL Globulin 2.0 (1.3-4.6) g/dL Lipase (13-60) U/L Vitamin B12 (232-1245) pg/mL Folate (4.8-37.3) ng/mL Procalcitonin (0-0.5) ng/mL Ethyl Alcohol (0-10) mg/dL Blood Type Rho(D) Type Antibody Screen Crossmatch Imaging Data^: CT Abd/Pel: Attestation: I personally reviewed and interpreted this imaging study as follows: Radiologist's impression: [address] [address] [address] Scan Report Signed Patient: Therese Schaefer Unit #: [id number] : 1975 Age/Sex: 44 / F ADM Date: 02/03/20 Loc: ER Room/Bed: Attending Dr: Ordering Provider/Ordering MD: Lia May DO Date of Service: 02/03/20 Procedure(s): CT abdomen pelvis con [id number] Accession Number(s): [id number] Report Number: [id number] PROCEDURE INFORMATION: Exam: CT Abdomen And Pelvis Without Contrast Exam date and time: 02/03/2020 8:54 PM Age: 44 years old Clinical indication: Nausea and vomiting and other: Diarrhea; Prior surgery; Surgery type: Ulcer, appy, . gb, tubal; Additional info: Abdominal pain TECHNIQUE: Imaging protocol: Computed tomography of the abdomen and pelvis without contrast. Radiation optimization: All CT scans at this facility use at least one of these dose optimization techniques: automated exposure control; mA and/or kV adjustment per patient size (includes targeted exams where dose is matched to clinical indication); or iterative reconstruction. COMPARISON: CT abdomen pelvis con [id number] 11/20/2019 4:15 PM RADIATION DOSE METRICS: Total DLP (mGy-cm): 404.21 FINDINGS: Pleural space: Small bilateral pleural effusions. Heart: Pericardial effusion. Liver: Diffuse fatty infiltration of the liver. Gallbladder and bile ducts: Cholecystectomy. The bile ducts are within normal limits. Pancreas: Normal. No ductal dilation. Spleen: Normal. No splenomegaly. Adrenal glands: Normal. No mass. Kidneys and ureters: Normal. No hydronephrosis. Stomach and bowel: Small scattered air-fluid levels within nonobstructed small bowel. Mild wall thickening suspected within the sigmoid colon and rectum. Perirectal fat stranding. Appendix: The appendix is not visible. Right lower quadrant clips. Intraperitoneal space: Mild ascites in the pelvis and left upper quadrant. No free air. Vasculature: Unremarkable. No abdominal aortic aneurysm. Lymph nodes: Unremarkable. No enlarged lymph nodes. Urinary bladder: Unremarkable as visualized. Reproductive: The uterus is absent. Small retained ovaries. Bones/joints: Mild scoliosis. No compression fracture. Soft tissues: Perigastric surgical clips and sutures. Mild body wall edema. CT/CT abdomen pelvis [facility] [id number] IMPRESSION: 1. Mild wall thickening in the sigmoid colon and rectum with perirectal fat stranding could indicate infectious or inflammatory colitis. 2. Mild ascites. 3. Small pleural effusions. 4. Pericardial effusion. Radiation Dose CTDIVOL = (mGy): DLP = 404.21 (mGy-cm) Dictated By: Kendall Canales Signed By: Kendall Canales Signed Date/Time: 02/03/202223 DD/ 12 Discharge Plan Discharge Patient Disposition: Placed in Observation Clinical Impression: Colitis Condition: Stable Referrals: Rosi Shell, DAVID [Primary Care Provider] - 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 of Care Code ED Etiquette Teacher for Chg Fwd Exam Comprehensive
[2020-02-03 20:50] LABS: INR 1.35 (0.8-1.2)
[2020-02-03 20:55] LABS: Alanine Aminotransferase 55 U/L (0-33); Albumin Level 2.2 g/dL (3.5-5.2); Alkaline Phosphatase 196 IU/L (35-105); Blood Urea Nitrogen 7 mg/dL (6-20); Calcium 8.2 mg/dL (8.5-10.5); Carbon Dioxide 22 mmol/L (22-29); Chloride 115 mmol/L (98-107); Globulin 2.5 g/dL (1.3-4.6); Glomerular Filtration Rate 77.2 mL/min (90-130); Glucose 101 mg/dL (65-115); Lipase 12 U/L (13-60); Osmolality Calculated 304 mOsm/kg (285-295); Sodium 148 mmol/L (136-145); Total Protein 4.7 g/dL (6.6-8.7)
[2020-02-03 20:57] LABS: Basophils % 0.6 %; Eosinophils % 0.4 %; Hematocrit 38.7 % (37.0-47.0); Lymphocytes % 28.1 %; Mean Corpuscular Volume 122.5 fL (81-99); Mean Platelet Volume 8.9 fL (7.4-10.4); Monocytes # 0.6 10^3/uL (0.2-0.9); Neutrophils # 4.36 10^3/uL (1.8-7.7); Neutrophils % 62.3 %; Nucleated Red Blood Cells % 0 %; Platelet Count 225 10^3/cmm (130-400); Red Blood Count 3.16 10^6/uL (4.1-5.3); Red Cell Distribution Width 19.2 % (12.1-15.1)
[2020-02-03] MEDS: diphenhydrAMINE 50 mg/mL SDV 1mL 25 MG IVP (20:59)
[2020-02-03 21:00] VITALS: RESP 24; O2SAT 99
[2020-02-03] MEDS: HYDROmorphone 1 mg/mL INJ 1 mL IVP (21:00)
[2020-02-03] MEDS: pantoprazole 40 mg SDV 80 MG IVP (21:01)
[2020-02-03] MEDS: sodium chloride 0.9% 1,000 ML 100 ML IV (21:03)
[2020-02-03 21:04] VITALS: BP 111/78; PULSE 99; RESP 24; O2SAT 100
[2020-02-03 21:06] LABS: Anion Gap 15.4 (5-19); Aspartate Amino Transferase 41 U/L (0-32); Potassium 4.4 mmol/L (3.5-5.1)
[2020-02-03] MEDS: iohexol 300 mg/mL 100 mL Btl IV (21:13)
[2020-02-03 22:00] VITALS: BP 108/80; PULSE 80; RESP 16; O2SAT 98
[2020-02-03 22:02] LABS: Troponin(5th) Baseline 10 ng/L (0-10)
[2020-02-03 23:00] VITALS: BP 101/76; PULSE 88; RESP 14; O2SAT 99
[2020-02-03] MEDS: metroNIDAZOLE IV 500 MG/100 ML PREMIX 100 MG IV (23:16)
[2020-02-03 23:21] VITALS: BP 105/76; PULSE 87; RESP 22; O2SAT 97
[2020-02-03 23:22] LABS: Troponin 5 2HR 11.95 ng/L (0-10); Troponin 5 2HR Delta 1.95 ABS# (0-10)
--- NOTE | 2020-02-03 23:37 | PC.NURSE ---
Pharmacy contacted for protonix. Pyxis is out.
[2020-02-04] VITALS (10 sets, daily range): BP systolic 104–135; BP diastolic 76–87; PULSE 78–99; RESP 11–18; TEMP 36.7–36.9; O2SAT 97–100
[2020-02-04] MEDS: ciprofloxacin 400 MG/200 ML PREMIX 200 MG IV ×2 (00:24→12:28)
[2020-02-04 00:45] LABS: Erythrocyte Sedimentation Rate 10 mm/hr (0-15)
[2020-02-04] MEDS: sucralfate 1 gm Tablet PO ×4 (00:45→21:23)
[2020-02-04 00:46] LABS: LAB Peripheral Smear Sent for Review
[2020-02-04] MEDS: pantoprazole 40 mg SDV IVP ×3 (00:59→22:46)
--- NOTE | 2020-02-04 00:59 | P.HP_ITS ---
Providers/Chief Complaint Primary Care Provider: Rosi Shell NP Chief Complaint: n/v blood History of Present Illness Therese Schaefer is a 44 year old female with a past medical history of anastomotic ulcer status post gastric bypass, last EGD 06/21/2019, which showed a 2 cm ulcer at GJ junction,, posttraumatic stress disorder, general anxiety, hypertension, major depressive disorder, history of chronic pancreatitis, has had multiple ad missions to [facility] in the past year, who presents to [facility] due to hematemesis, bright red blood and coffee-ground blood, fatigue, malaise. Currently patient is bent over in bed, she answers questions, but is quite stoic, she i does not really provide a clear answer to why she is here, although she says just she is vomiting up coffee-ground emesis and bright red blood, today, denies hematemesis in the past, denies a history of esophageal varices, denies drinking alcohol, denies drug use, she lives with her mom, denies chest pain, denies shortness of breath, denies history of IV drug use, denies history of hep C. Denies fevers, chills, cough. Also complains of generalized abdominal pain, denies bloody or black stools. Review of Systems Const: Denies: fever(s), chills, fatigue or malaise Eyes: Denies: change in vision or blurry vision ENMT: Denies: nasal congestion Resp: Denies: dyspnea, productive cough, non-productive cough or wheezing GI: Denies: abdominal pain, nausea, vomiting, hematemesis, diarrhea, constipation, hematochezia or melena : Denies: flank pain, dysuria or urinary frequency Musc: Denies: neck pain or back pain Skin/Breast: Denies: rash Neuro: Denies: headache(s), dizziness or vertigo Psych: Denies: anxiety or depression Endo: Denies: polyuria or polydipsia Medications/Allergies Home Medications Medication Instructions Recorded Confirmed Last Taken Type sucralfate 1 g PO TID 06/21/19 02/03/20 02/03/20 History acetaminophen [Tylenol Extra 500 - 1,000 mg PO Q6H PRN 07/10/19 02/03/20 12/29/19 History Strength] metoprolol tartrate 25 mg PO BID 09/05/19 02/03/20 02/03/20 History multivitamin [Multiple Vitamins] 1 tab PO DAILY 09/05/19 02/03/20 02/03/20 History tramadol [Ultram] 50 mg PO Q8H PRN #14 tab 12/18/19 02/03/20 2 Days Ago Rx ~12/12/19 dexlansoprazole 60 mg 60 mg PO BID #60 cap 12/24/19 02/03/20 02/03/20 Rx capsule,biphase delayed release dexlansoprazole 60 mg PO DAILY 56 Days cap 12/30/19 02/03/20 02/03/20 Rx dicyclomine 20 mg PO QID PRN 12/30/19 02/03/20 02/03/20 History potassium chloride 10 meq PO BID #30 cap 12/30/19 02/03/20 Unknown Rx citalopram 20 mg tablet 20 mg PO QAM #90 tab 12/31/19 02/03/20 02/03/20 Rx lorazepam 1 mg tablet 1 mg PO TID PRN #90 tab 12/31/19 02/03/20 02/02/20 Rx trazodone 150 mg tablet 150 mg PO BEDTIME PRN #90 tab 12/31/19 02/03/20 02/02/20 Rx erythromycin 250 mg tablet 250 mg PO BID #60 tab 01/28/20 02/03/20 02/03/20 Rx promethazine See Rx Instructions .ROUTE .COMPLEX 02/03/20 02/03/20 02/03/20 History Allergies Allergy/AdvReac Type Severity Reaction Status Date / Time ondansetron [From Zofran] Allergy Severe ALGY-Anaphy Verified 02/03/20 16:39 laxis baclofen Allergy Intermediate Hives Verified 02/03/20 16:39 codeine Allergy Intermediate rash/ felt Verified 02/03/20 16:39 antsy metoclopramide [From Reglan] Allergy Intermediate ALGY-Hives Verified 02/03/20 16:39 prochlorperazine AdvReac Severe ADR-Irritab Verified 02/03/20 16:39 [From Compazine] le promethazine [From Phenergan] AdvReac Severe ADR-Dry Verified 02/03/20 16:39 Mucus Membranes PFSH Acute PFSH: Medical History Anastomotic ulcer S/P gastric bypass Chronic post-traumatic stress disorder Generalized anxiety disorder Hypertension Major depressive disorder, recurrent severe without psychotic features Vomiting blood Surgical History H/O esophagogastroduodenoscopy (~06/2019) H/O: hysterectomy History of partial gastrectomy Hx of cholecystectomy S/P appendectomy Family History Mother CAD (coronary artery disease) Other Hypertension Denies family history of Anesthesia complication Bleeding disorder Social History Smoking and tobacco status: former smoker Alcohol intake: never Adopted: No Caregiver/support person: Yes Lives independently: Yes Household members: family and children Housing: House Marital status: service: No Current occupational status: employed Current occupational exposures/hazards: No Pets and animals: No History of recent travel: No Sexually active: No Current gender identity: Female Teresa/Roman Catholic: Sabianism Special teresa needs: No Agree to transfusion: No Financial difficulty paying for basics: Decline to Answer Vitals/I&O/Wt Last Vital Signs Temp 97.9 F 02/03/20 16:36 Pulse 87 02/03/20 23:21 Resp 22 H 02/03/20 23:21 BP 105/76 02/03/20 23:21 Pulse Ox 97 02/03/20 23:21 02/03/20 02/03/20 02/04/20 14:59 22:59 06:59 Intake Total 356.667 / 356.667 Balance 356.667 / 356.667 Weight last 48 hrs Weight 63.049 kg Physical Exam Const: COMMON NORMALS: no acute distress and patient oriented x3 GENERAL APPEARANCE: cooperative and comfortable HENMT: COMMON NORMALS: normocephalic HEAD & SCALP: normocephalic Eye: COMMON NORMALS: Equal, round and reactive pupils present and EOMs intact bilaterally GENERAL EYE: appearance normal, both eyes and all related struct ures PUPIL: Yes Equal, round and reactive pupils present Neck/C-Spine: COMMON NORMALS: full ROM and no JVD THYROID: Thyroid normal Lymph: LYMPHATIC: no lymphadenopathy noted Resp: COMMON NORMALS: normal respiratory effort, No retractions, No use of accessory muscles and clear to auscultation bilaterally AUSCULTATION: clear to auscultation bilaterally Cardio: COMMON NORMALS: no JVD, regular rate, regular rhythm, S1 normal heart sound present, S2 normal heart sound present, No gallops present (Cardio), No clicks present (Cardio) and No murmurs present (Cardio) RATE: regular rate RHYTHM: regular rhythm HEART SOUNDS: S1 normal heart sound present and S2 normal heart sound present GI: INSPECTION: Yes normal to inspection AUSCULTATION: Yes normoactive bowel sounds PALPATION: Yes Tenderness to palpation present (GI) Details: LLQ, RLQ, LUQ and RUQ, No Guarding due to palpation present (GI), No Rigid due to palpation and Yes No hepatosplenomegaly present Extremity: COMMON NORMALS: normal to inspection, full ROM and no pedal edema Neuro: COMMON NORMALS: patient oriented x3, CN's II-XII intact bilaterally, m oves all extremities and no focal motor deficits Psych: ATTITUDE: Yes calm, Yes Withdrawn affect present and Yes uncooperative (Uncooperative with questioning, is quite stoic) ACTIVITY/MOTOR BEHAVIOR: Yes Avoids eye contact (attititude/behavior) SPEECH: Yes minimal MOOD & AFFECT: Yes euthymic mood Data : 02/03/20 20:30 02/03/20 20:30 A&P Assessment and plan (1) Upper GI bleed: -Hematemesis -No bloody or black stools -Hemoglobin on admission was 12, MCV is 112.5? -Denies any episodes in the last 12 hours -Denies alcohol use, denies drug use, denies history of hep C, denies history of esophageal varices -Has a history of anastomotic ulcer status post gastric bypass -Last EGD on 06/21/2019 showed a 2 cm ulcer at GJ junction -In the ER hemodynamically stable, no tachycardia -Quite stoic, withdrawn, difficult to get an answer from her PLAN: -Admit to general medical floors -N.p.o. -Protonix -IV fluids -Plan for EGD -We will get 2 units PRBC -Monitor hemoglobin closely -Monitor for recurrent hematemesis -Full code -SCDs for DVT prophylaxis, Lovenox contraindicated Status: Acute (2) Colitis: -Seen to have colitis on CT scan, has complaints of generalized abdominal pain -Continue Cipro and Flagyl -Stool studies Status: Acute (3) Acute pancreatitis: -Chronic pancreatitis -Lipase is minimally elevated, she does not use pancreatic lipase -Should her pain is quite diffuse -N.p.o., IV fluids, pain control Status: Acute Qualifiers: Acute pancreatitis complication: no infection or necrosis Pancreatitis type: unspecified pancreatitis type Qualified Code(s): K85.90 - Acute pancreatitis without necrosis or infection, unspecified (4) Chronic post-traumatic stress disorder: Status: Chronic (5) Generalized anxiety disorder: Status: Chronic (6) Macrocytosis: Status: Acute (7) Gastroparesis: Had a gastric emptying study, that showed significant gastroparesis at 2- hour postmeal On erythromycin as outpatient Status: Acute (8) Macrocytosis without anemia: -Significant macrocytosis, B12, folate, iron studies, peripheral smear, blood alcohol level Status: Acute Attestations Medical Necessity Statement*: Patient requires hospitalization, outpatient with observation, for upper GI bleed, colitis 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 Tare Weigher for [facility] Diagnoses Upper GI bleed K92.2 Colitis K52.9 Acute pancreatitis K85.90 Acute pancreatitis complication: no infection or necrosis Pancreatitis type: unspecified pancreatitis type Chronic post-traumatic stress disorder F43.12 Generalized anxiety disorder F41.1 Macrocytosis D75.89 Gastroparesis K31.84 Macrocytosis without anemia D75.89
[2020-02-04 02:08] LABS: Procalcitonin 0.85 ng/mL (0-0.5); Vitamin B12 1908 pg/mL (232-1245)
[2020-02-04 02:11] LABS: Folate Level 11.7 ng/mL (4.8-37.3)
[2020-02-04 02:19] LABS: C Reactive Protein 12.5 mg/L (0.0-4.9); Ferritin 178 ng/mL (15-150); Iron 47 ug/dL (37-145); Percent Saturation 52.2 % (20-50); Total Iron Binding Capacity 90 mcg/dl; Unsaturated Iron Binding 43 ug/dL (112-347)
[2020-02-04 02:20] LABS: Alcohol Level < 10 mg/dL (0-10)
[2020-02-04 02:42] LABS: Basophils % 0.6 %; Eosinophils # 0.1 10^3/uL (0.0-0.8); Eosinophils % 1.3 %; Hematocrit 32.6 % (37.0-47.0); Hemoglobin 10.2 g/dL (11.5-15.3); Lymphocytes # 1.6 10^3/uL (0.8-4.8); Lymphocytes % 30.9 %; Mean Corpuscular HGB Conc 31.3 g/dL (30.0-36.0); Mean Corpuscular Hemoglobin 38.6 pg (28.0-34.0); Mean Corpuscular Volume 123.5 fL (81-99); Mean Platelet Volume 9.1 fL (7.4-10.4); Monocytes # 0.5 10^3/uL (0.2-0.9); Monocytes % 9.7 %; Neutrophils # 2.98 10^3/uL (1.8-7.7); Neutrophils % 56.9 %; Nucleated Red Blood Cells % 0 %; Platelet Count 131 10^3/cmm (130-400); Red Blood Count 2.64 10^6/uL (4.1-5.3); White Blood Count 5.2 10^3/uL (4.0-10.0)
[2020-02-04 03:04] LABS: INR 1.44 (0.8-1.2)
[2020-02-04 03:06] LABS: Magnesium 1.9 mg/dL (1.7-2.3); Phosphorus 3.4 mg/dL (2.5-4.5)
[2020-02-04 03:07] LABS: Alanine Aminotransferase 45 U/L (0-33); Albumin Level 1.9 g/dL (3.5-5.2); Alkaline Phosphatase 163 IU/L (35-105); Aspartate Amino Transferase 29 U/L (0-32); Blood Urea Nitrogen 7 mg/dL (6-20); Calcium 7.5 mg/dL (8.5-10.5); Carbon Dioxide 23 mmol/L (22-29); Chloride 115 mmol/L (98-107); Glomerular Filtration Rate 67.4 mL/min (90-130); Glucose 107 mg/dL (65-115); Osmolality Calculated 300 mOsm/kg (285-295); Sodium 146 mmol/L (136-145); Total Bilirubin 0.7 mg/dL (0.15-1.2); Total Protein 3.9 g/dL (6.6-8.7)
[2020-02-04 03:08] LABS: Anion Gap 11.4 (5-19); Potassium 3.4 mmol/L (3.5-5.1); Troponin 5 6HR 8.79 ng/L (0-10); Troponin 5 6HR Delta -1.21 ng/L (0-12)
[2020-02-04] MEDS: sodium chloride 0.9% 1,000 ML 100 ML IV ×2 (06:07→16:14)
[2020-02-04 06:30] LABS: Add Urine Microscopic? YES; Bacteria Urine TRACE /hpf; Bilirubin Urine Neg (Negative); Blood Urine Neg (Negative); Calcium Oxalate Crystals Urine 15-25 /hpf; Glucose Urine UA Norm (Normal); Hyaline Casts Urine 0-4 /lpf; Ketones Urine Negative (Negative); Leukocyte Esterase Urine Negative (Negative); Mucus Urine TRACE /hpf; Nitrate Urine Negative (Negative); Protein Urine Neg (Negative); RBC Urine 0-4 /hpf (0-2); Squamous Epithelial Cell Urine 0-4 /hpf (0-5); Urine Appearance SL Hazy (CLEAR); Urine Color Yellow (Yellow); Urobilinogen Urine Norm (Negative); WBC Urine 0-4 /hpf (0-5); pH Urine 5 (5-7)
[2020-02-04 06:31] LABS: Add Urine Culture? No
[2020-02-04] MEDS: metroNIDAZOLE IV 500 MG/100 ML PREMIX 100 MG IV ×2 (07:44→16:13)
[2020-02-04] MEDS: morphine 4 mg/mL SDV 1 mL 2 MG IVP ×4 (07:44→22:01)
[2020-02-04] MEDS: LORazepam 1 mg Tablet PO (08:53)
--- NOTE | 2020-02-04 10:36 | PC.NURSE ---
Received word from ER that pt ate breakfast, procedure canceled at this time per charge nurse.
--- NOTE | 2020-02-04 10:36 | PC.NURSE ---
Received verbal order from Dr Pedro to cancel active anesthesia orders.
--- NOTE | 2020-02-04 13:08 | PC.OT ---
Contacted patient this date for evaluation. Patient refused stating she was too ill and wanted to be left alone at this time.
--- NOTE | 2020-02-04 17:48 | PC.PT ---
PT note; see OT note, patient refused occupational therapy stating feels too badly today, will reattempt tomorrow
--- NOTE | 2020-02-04 18:09 | P.PN_ITS ---
Subjective Subjective: Interval history: Seen channeling machine runner in ER, at that point was having some abdominal discomfort, mid uper abdomen. Reported loose bloody stools last 3 days. Denies eating any potentially undercooked meat. Did not eat any outside restaurants. Says that she gets her water at home from a well. Says that her mother, however, also drinks from the same source and has not been ill. Vitals/I&O/Wt Last Vital Signs Temp 98.1 F 02/04/20 16:00 Pulse 78 02/04/20 16:00 Resp 18 02/04/20 16:00 BP 135/83 02/04/20 16:00 Pulse Ox 98 02/04/20 12:30 02/04/20 02/04/20 02/04/20 06:59 14:59 22:59 Intake Total 1206.667 / 1206.667 300 / 300 1100 / 1400 Balance 1206.667 / 1206.667 300 / 300 1100 / 1400 Weight last 48 hrs Weight 63.049 kg Physical Exam 2 Const: COMMON NORMALS: no acute distress and patient oriented x3 OTHER: Generally somewhat weak. With some abdominal discomfort. HENMT: COMMON NORMALS: oropharynx normal Neck/C-Spine: COMMON NORMALS: no JVD Resp: COMMON NORMALS: normal respiratory effort and clear to auscultation bilaterally AUSCULTATION: clear to auscultation bilaterally Cardio: COMMON NORMALS: no JVD, regular rhythm, S1 normal heart sound present, S2 normal heart sound present and No murmurs present (Cardio) RHYTHM: regular rhythm HEART SOUNDS: S1 normal heart sound present and S2 normal heart sound present GI: COMMON NORMALS: Normal to inspection, nondistended, normoactive bowel sounds present, Soft to palpation and non-tender PALPATION: Yes Soft to palpation Extremity: COMMON NORMALS: no joint enlargement and no pedal edema Neuro: COMMON NORMALS: patient oriented x3 and moves all extremities Skin: COMMON NORMALS: no rashes or lesions noted GENERAL SKIN EXAM: no rashes or lesions noted Data : 02/04/20 02:20 02/04/20 02:20 A&P Assessment and plan (1) Upper GI bleed: Loose stools for about 3 days with blood mixed in. She has had some normal discomfort as well. Has had EGD 06/21/2019. CT abdomen pelvis with some mild thickening noted in sigmoid/rectum. With her symptomatology possibility of colitis is high on the differential. Stool studies have been ordered, but I see still have not been collected. This morning EGD was anticipated, however, appears was unable to have it as she had eaten. Recheck hemoglobin is 10.2. Discussed with surgery. At this time continue PPI. If she is tolerating diet, and if hemoglobin stabilized, potentially hold off on any additional endoscopic evaluation currently, with referral for colonoscopy evaluation after recovery from possible colitis. Continue antibiotics at this time. Attempt to collect stool studies. She does report drinking water out of a well, although her mother is also drinking from the same source and has not been ill. May need to consider having the water tested. She denies any hematemesis or any vomiting. -Denies alcohol use, denies drug use, denies history of hep C, denies history of esophageal varices -Has a history of anastomotic ulcer status post gastric bypass -Last EGD on 06/21/2019 showed a 2 cm ulcer at GJ junction Status: Acute (2) Colitis: -Seen to have colitis on CT scan, has complaints of generalized abdominal pain -Continue Cipro and Flagyl -Stool studies Refer for colonoscopy after recovers. Status: Acute (3) Acute pancreatitis: -Chronic pancreatitis -Lipase is minimally elevated, she does not use pancreatic lipase -Should her pain is quite diffuse -N.p.o., IV fluids, pain control Status: Acute Qualifiers: Acute pancreatitis complication: no infection or necrosis Pancreatitis type: unspecified pancreatitis type Qualified Code(s): K85.90 - Acute pancreatitis without necrosis or infection, unspecified (4) Chronic post-traumatic stress disorder: Status: Chronic (5) Generalized anxiety disorder: Status: Chronic (6) Macrocytosis: Status: Acute (7) Gastroparesis: Had a gastric emptying study, that showed significant gastroparesis at 2- hour postmeal On erythromycin as outpatient Status: Acute (8) Macrocytosis without anemia: -Significant macrocytosis, B12, folate, iron studies, peripheral smear, blood alcohol level Status: Acute Attestations Medical Necessity Statement*: Continue admission for assessment management of GI bleeding, colitis, acute on chronic pancreatitis. 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 Client Onboarding Analyst for [facility] Diagnoses Upper GI bleed K92.2 Colitis K52.9 Acute pancreatitis K85.90 Acute pancreatitis complication: no infection or necrosis Pancreatitis type: unspecified pancreatitis type Chronic post-traumatic stress disorder F43.12 Generalized anxiety disorder F41.1 Macrocytosis D75.89 Gastroparesis K31.84 Macrocytosis without anemia D75.89
[2020-02-05] VITALS (19 sets, daily range): BP systolic 83–121; BP diastolic 58–85; PULSE 86–104; RESP 16–18; TEMP 36.1–38.4; O2SAT 91–100
[2020-02-05] MEDS: ciprofloxacin 400 MG/200 ML PREMIX 200 MG IV ×3 (00:15→23:03)
[2020-02-05] MEDS: metroNIDAZOLE IV 500 MG/100 ML PREMIX 100 MG IV ×2 (00:15→15:38)
[2020-02-05] MEDS: sodium chloride 0.9% 1,000 ML 100 ML IV ×2 (02:25→20:29)
[2020-02-05] MEDS: morphine 4 mg/mL SDV 1 mL 2 MG IVP ×5 (02:25→20:31)
--- NOTE | 2020-02-05 05:38 | PC.NURSE ---
Pt found sitting on the floor. When asking her what happened, she states I knelt down . Pt is A&O, denies any pain, appears to be not in any distress. Breathing is even and unlabored.
--- NOTE | 2020-02-05 07:15 | PC.NURSE ---
pt off floor to GI lab
[2020-02-05 07:18] LABS: HCG, Serum Qual Negative (Negative)
[2020-02-05] MEDS: sodium chloride 0.9% 1,000 ML 30 ML IV (07:30)
[2020-02-05 07:55] LABS: Alanine Aminotransferase 37 U/L (0-33); Albumin Level 1.6 g/dL (3.5-5.2); Alkaline Phosphatase 135 IU/L (35-105); Blood Urea Nitrogen 4 mg/dL (6-20); Calcium 7.1 mg/dL (8.5-10.5); Carbon Dioxide 20 mmol/L (22-29); Chloride 120 mmol/L (98-107); Globulin 1.6 g/dL (1.3-4.6); Glomerular Filtration Rate 77.2 mL/min (90-130); Glucose 69 mg/dL (65-115); Magnesium 1.6 mg/dL (1.7-2.3); Osmolality Calculated 301 mOsm/kg (285-295); Phosphorus 2.8 mg/dL (2.5-4.5); Sodium 148 mmol/L (136-145); Total Bilirubin 0.7 mg/dL (0.15-1.2); Total Protein 3.2 g/dL (6.6-8.7)
--- NOTE | 2020-02-05 07:56 | P.CONIM_ITS ---
Providers/Reason For Consult Consulting Physican/Specialty*: Jr Celeste Reason for Consult*: Epigastric pain nausea and vomiting Attending Physician: Jr Celeste Primary Care Provider: Rosi Shell NP History of Present Illness History of Present Illness Therese Schaefer is a 44 year old female who had previously had an EGD in June 2019 where a gastrojejunostomy anastomotic ulcer was noted. Patient has been on Protonix and Carafate and was recently started on erythromycin by Dr. Mckeon for gastric motility. She presented to the ER again with complaints of severe abdominal pain sharp, no radiation, no aggravating or relieving factors associated with nausea and vomiting fresh blood as well as coffee-ground emesis. Currently on Carafate and Dexilant Review of Systems General: Reports: 10 or more systems reviewed and unremarkable except in HPI and below Meds/Allergies Home Medications and Allergies Home Medications Medication Instructions Recorded Confirmed Last Taken Type sucralfate 1 g PO TID 06/21/19 02/03/20 02/03/20 History acetaminophen [Tylenol Extra 500 - 1,000 mg PO Q6H PRN 07/10/19 02/03/20 12/29/19 History Strength] metoprolol tartrate 25 mg PO BID 09/05/19 02/03/20 02/03/20 History multivitamin [Multiple Vitamins] 1 tab PO DAILY 09/05/19 02/03/20 02/03/20 History tramadol [Ultram] 50 mg PO Q8H PRN #14 tab 12/18/19 02/03/20 2 Days Ago Rx ~12/12/19 dexlansoprazole 60 mg 60 mg PO BID #60 cap 12/24/19 02/03/20 02/03/20 Rx capsule,biphase delayed release dexlansoprazole 60 mg PO DAILY 56 Days cap 12/30/19 02/03/20 02/03/20 Rx dicyclomine 20 mg PO QID PRN 12/30/19 02/03/20 02/03/20 History potassium chloride 10 meq PO BID #30 cap 12/30/19 02/03/20 Unknown Rx citalopram 20 mg tablet 20 mg PO QAM #90 tab 12/31/19 02/03/20 02/03/20 Rx lorazepam 1 mg tablet 1 mg PO TID PRN #90 tab 12/31/19 02/03/20 02/02/20 Rx trazodone 150 mg tablet 150 mg PO BEDTIME PRN #90 tab 12/31/19 02/03/20 02/02/20 Rx erythromycin 250 mg tablet 250 mg PO BID #60 tab 01/28/20 02/03/20 02/03/20 Rx promethazine See Rx Instructions .ROUTE .COMPLEX 02/03/20 02/03/20 02/03/20 History Allergies Allergy/AdvReac Type Severity Reaction Status Date / Time ondansetron [From Zofran] Allergy Severe ALGY-Anaphy Verified 02/03/20 16:39 laxis baclofen Allergy Intermediate Hives Verified 02/03/20 16:39 codeine Allergy Intermediate rash/ felt Verified 02/03/20 16:39 antsy metoclopramide [From Reglan] Allergy Intermediate ALGY-Hives Verified 02/03/20 16:39 prochlorperazine AdvReac Severe ADR-Irritab Verified 02/03/20 16:39 [From Compazine] le promethazine [From Phenergan] AdvReac Severe ADR-Dry Verified 02/03/20 16:39 Mucus Membranes Current Medications Current Medications Generic Name Dose Route Start Last Admin Trade Name Freq PRN Reason Stop Dose Admin Sodium Chloride 1,000 mls @ 100 mls/hr 02/03/20 20:15 02/05/20 02:25 Sodium Chloride 0.9% IV 100 mls/hr .Q10H BONITA Administration Ciprofloxacin/Dextrose 400 mg in 200 mls @ 200 mls/hr 02/04/20 12:00 02/05/20 07:15 Cipro IV Infused Q12H BONITA Infusion Protocol Metronidazole 500 mg in 100 mls @ 100 mls/hr 02/04/20 08:00 02/05/20 07:15 Flagyl Iv IV Infused Q8H BONITA Infusion Protocol Sodium Chloride 1,000 mls @ 100 mls/hr 02/03/20 23:44 02/05/20 05:28 Sodium Chloride 0.9% IV Not Given .Q10H BONITA Sodium Chloride 1,000 mls @ 30 mls/hr 02/04/20 09:18 02/05/20 07:30 Sodium Chloride 0.9% IV 02/05/20 09:17 30 mls/hr .Q24H ONE Administration Lorazepam 1 mg 02/03/20 23:21 02/04/20 08:53 Ativan PO 1 mg TID PRN Administration anxiety Morphine Sulfate 2 mg 02/03/20 23:21 02/05/20 06:29 Morphine IVP 2 mg Q4H PRN Administration SEVERE PAIN Pantoprazole Sodium 40 mg 02/03/20 23:30 02/04/20 22:46 Protonix IVP 40 mg Q12H BONITA Administration Sucralfate 1 gm 02/03/20 23:59 02/04/20 21:23 Carafate PO 1 gm TID BONITA Administration PFSH Acute PFSH: Medical History Anastomotic ulcer S/P gastric bypass Chronic post-traumatic stress disorder Generalized anxiety disorder Hypertension Major depressive disorder, recurrent severe without psychotic features Vomiting blood Surgical History H/O esophagogastroduodenoscopy (~06/2019) H/O: hysterectomy History of partial gastrectomy Hx of cholecystectomy S/P appendectomy Family History Mother CAD (coronary artery disease) Other Hypertension Denies family history of Anesthesia complication Bleeding disorder Social History Smoking and tobacco status: former smoker Alcohol intake: never Adopted: No Caregiver/support person: Yes Lives independently: Yes Household members: family and children Housing: House Marital status: service: No Current occupational status: employed Current occupational exposures/hazards: No Pets and animals: No History of recent travel: No Sexually active: No Current gender identity: Female Teresa/Shinto: Scientologist Special teresa needs: No Agree to transfusion: No Financial difficulty paying for basics: Decline to Answer Vitals/I&O/Wt Last Vital Signs Temp 98.3 F 02/05/20 07:32 Pulse 92 02/05/20 07:32 Resp 16 02/05/20 07:32 BP 110/73 02/05/20 07:32 Pulse Ox 96 02/05/20 07:32 02/04/20 02/05/20 02/05/20 22:59 06:59 14:59 Intake Total 1130 / 2430 1000 / 2430 300 / 300 Output Total 300 / 700 400 / 700 Balance 830 / 1730 600 / 1730 300 / 300 Weight last 48 hrs Weight 139 lb Physical Exam Narrative: EXAM NARRATIVE: HEENT: Normocephalic Eye: Sclera /conjunctiva normal Abdomen: Soft to palpation, tender left upper quadrant epigastric region Neurological: Oriented to place person and time Skin: Intact, no lesions appreciated on gross exam A&P Assessment and plan (1) Upper GI bleed: 44-year-old female status post gastric bypass with history of anastomotic ulcer who presents with abdominal pain hematemesis and coffee-ground emesis. Patient is currently hemodynamically stable. Hemoglobin is 10.2 Plan for EGD under MAC Procedure, risks, benefits and alternatives have been discussed with the patient who wishes to proceed with surgery. Status: Acute 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 Compliance Testing Analyst for [facility] Diagnoses Upper GI bleed K92.2
--- NOTE | 2020-02-05 07:57 | P.ANESASSM_ITS ---
Pre-Anesthetic Assessment Pre-Anesthetic Assessment: Height/Weight: Height 1.63 m Weight 63.049 kg Temp Pulse Resp BP Pulse Ox 98.3 F 92 16 110/73 96 02/05/20 07:32 02/05/20 07:32 02/05/20 07:32 02/05/20 07:32 02/05/20 07:32 Preop Diagnosis: Hematochezia Proposed Procedure: Operation Date: 02/05/20 08:00 Proposed Procedures p EGD(Not Applicable) - Epifanio Díaz MD Familial anesthetic complications: none Was Beta Jesse taken within 24 hours: Yes Last intake: Intake Last Liquid Date 02/04/20 Last Liquid Time 23:55 Last Solid Date 02/04/20 Last Solid Time 23:55 Social: Social History: No alcohol and No tobacco Exam: Pre-Anes Outpt Exam: alert, oriented x 3, clear to auscultation bilaterally and regular rate & rhythm Airway: Cervical ROM: WNL MP: 2 Dentition: Partials CV/HEM: CV/HEM: HTN GI: GI: GERD and PUD Comments: pancreatitis, gastroparesis Hx gastric bypass Metabolic: Comments: hx agranylocytosis Anesthetic Plan: ASA status: 2 Anesthesia: MAC Risk of > 500 ml blood loss (7ml/kg in children): No Meds/Allergies Current Medications: Current Medications Generic Name Dose Route Start Last Admin Trade Name Jordiq PRN Reason Stop Dose Admin Sodium Chloride 1,000 mls @ 100 m ls/hr 02/03/20 20:15 02/05/20 02:25 Sodium Chloride 0.9% IV 100 mls/hr .Q10H BONITA Administration Ciprofloxacin/Dext january 400 mg in 200 mls @ 200 mls/hr 02/04/20 12:00 02/05/20 07:15 Cipro IV Infused Q12H BONITA Infusion Protocol Metronidazole 500 mg in 100 mls @ 100 mls/hr 02/04/20 08:00 02/05/20 07:15 Flagyl Iv IV Infused Q8H BONITA Infusion Protocol Sodium Chloride 1,000 mls @ 100 m ls/hr 02/03/20 23:44 02/05/20 05:28 Sodium Chloride 0.9% IV Not Given .Q10H BONITA Sodium Chloride 1,000 mls @ 30 ml s/hr 02/04/20 09:18 02/05/20 07:30 Sodium Chloride 0.9% IV 02/05/20 09:17 30 mls/hr .Q24H ONE Administration Lorazepam 1 mg 02/03/20 23:21 02/04/20 08:53 Ativan PO 1 mg TID PRN Administration anxiety Morphine Sulfate 2 mg 02/03/20 23:21 02/05/20 06:29 Morphine IVP 2 mg Q4H PRN Administration SEVERE PAIN Pantoprazole [place] m 40 mg 02/03/20 23:30 02/04/20 22:46 Protonix IVP 40 mg Q12H BONITA Administration Sucralfate 1 gm 02/03/20 23:59 02/04/20 21:23 Carafate PO 1 gm TID BONITA Administration PFSH Anesthesia PFSH: Medical History Anastomotic ulcer S/P gastric bypass Chronic post-traumatic stress disorder Generalized anxiety disorder Hypertension Major depressive disorder, recurrent severe without psychotic features Vomiting blood Surgical History H/O esophagogastroduodenoscopy (~06/2019) H/O: hysterectomy History of partial gastrectomy Hx of cholecystectomy S/P appendectomy Family History Mother CAD (coronary artery disease) Other Hypertension Denies family history of Anesthesia complication Bleeding disorder Social History Smoking and tobacco status: former smoker Alcohol intake: never Adopted: No Caregiver/support person: Yes Lives independently: Yes Household members: family and children Housing: House Marital status: service: No Current occupational status: employed Current occupational exposures/hazards: No Pets and animals: No History of recent travel: No Sexually active: No Current gender identity: Female Teresa/[employer]: [employer] Special teresa needs: No Agree to transfusion: No Financial difficulty paying for basics: Decline to Answer Data Anesthesia CBC & Chem 7: 02/04/20 02:20 02/05/20 06:48 Other Labs: Laboratory Results - last 48 hr 02/03/20 02/03/20 02/03/20 20:30 20:30 20:30 WBC 7.0 Corrected WBC RBC 3.16 L Hgb 12.0 Hct 38.7 MCV 122.5 H MCH 38.0 H MCHC 31.0 RDW 19.2 H Plt Count 225 MPV 8.9 Gran % Neut % (Auto) 62.3 Lymph % (Auto) 28.1 [place] % (Auto) 8.0 Eos % (Auto) 0.4 Baso % (Auto) 0.6 Reticulocyte % (Auto) Neut # (Auto) 4.36 Lymph # (Auto) 2.0 [place] # (Auto) 0.6 Eos # (Auto) 0.0 Baso # (Auto) 0.0 Absolute Gran (auto) Nucleated RBC % (auto) 0 Nucleated RBCs # 0.0 ESR PT 17.10 H INR 1.35 H Sodium 148 H Potassium 4.4 Chloride 115 H Carbon Dioxide 22 Anion Gap 15.4 BUN 7 Creatinine 0.8 GFR Calculation 77.2 L Glucose 101 Calculated Osmolality 304 H Calcium 8.2 L Phosphorus Magnesium Iron TIBC % Saturation Unsat Iron Binding Ferritin Total Bilirubin 1.0 AST 41 H ALT 55 H Alkaline Phosphatase 196 H Troponin T Baseline Troponin T 120 Minute Delta Troponin T Troponin T Hi Sens 6Hr Troponin T Hi Sens 6Hr Delta C-Reactive Protein Total Protein 4.7 L Albumin 2.2 L Globulin 2.5 Lipase 12 L Vitamin B12 Folate Procalcitonin HCG, Qual Urine Color Urine Appearance Urine pH Ur Specific [place] Urine Protein Urine Glucose (UA) Urine Ketones Urine Blood Urine Nitrate Urine Bilirubin Urine Urobilinogen Ur Leukocyte Esterase Urine RBC Urine WBC Ur Squamous Epith Cells Calcium Oxalate Crystal Amorphous Sediment Urine Bacteria Hyaline Casts Urine Mucus Ethyl Alcohol Blood Type Rho(D) Type Antibody Screen Crossmatch 02/03/20 02/03/20 02/03/20 20:30 20:30 20:30 WBC Corrected WBC RBC Hgb Hct MCV MCH MCHC RDW Plt Count MPV Gran % Neut % (Auto) Lymph % (Auto) [place] % (Auto) Eos % (Auto) Baso % (Auto) Reticulocyte % (Auto) Neut # (Auto) Lymph # (Auto) [place] # (Auto) Eos # (Auto) Baso # (Auto) Absolute Gran (auto) Nucleated RBC % (auto) Nucleated RBCs # ESR PT INR Sodium Potassium Chloride Carbon Dioxide Anion Gap BUN Creatinine GFR Calculation Glucose Calculated Osmolality Calcium Phosphorus Magnesium Iron 47 TIBC 90 % Saturation 52.2 H Unsat Iron Binding 43 L Ferritin 178 H Total Bilirubin AST ALT Alkaline Phosphatase Troponin T Baseline 10 Troponin T 120 Minute Delta Troponin T Troponin T Hi Sens 6Hr Troponin T Hi Sens 6Hr Delta C-Reactive Protein 12.5 H Total Protein Albumin Globulin Lipase Vitamin B12 1908 H Folate Procalcitonin 0.85 H HCG, Qual Urine Color Urine Appearance Urine pH Ur Specific [place] Urine Protein Urine Glucose (UA) Urine Ketones Urine Blood Urine Nitrate Urine Bilirubin Urine Urobilinogen Ur Leukocyte Esterase Urine RBC Urine WBC Ur Squamous Epith Cells Calcium Oxalate Crystal Amorphous Sediment Urine Bacteria Hyaline Casts Urine Mucus Ethyl Alcohol < 10 Blood Type A Positive Rho(D) Type Positive Antibody Screen Negative Crossmatch See Detail 02/03/20 02/03/20 02/03/20 20:30 20:30 20:30 WBC Corrected WBC RBC Hgb Hct MCV MCH MCHC RDW Plt Count MPV Gran % Neut % (Auto) Lymph % (Auto) [place] % (Auto) Eos % (Auto) Baso % (Auto) Reticulocyte % (Auto) 5.2500 Neut # (Auto) Lymph # (Auto) [place] # (Auto) Eos # (Auto) Baso # (Auto) Absolute Gran (auto) Nucleated RBC % (auto) Nucleated RBCs # ESR 10 PT INR Sodium Potassium Chloride Carbon Dioxide Anion Gap BUN Creatinine GFR Calculation Glucose Calculated Osmolality Calcium Phosphorus Magnesium Iron TIBC % Saturation Unsat Iron Binding Ferritin Total Bilirubin AST ALT Alkaline Phosphatase Troponin T Baseline Troponin T 120 Minute Delta Troponin T Troponin T Hi Sens 6Hr Troponin T Hi Sens 6Hr Delta C-Reactive Protein Total Protein Albumin Globulin Lipase Vitamin B12 Folate 11.7 Procalcitonin HCG, Qual Urine Color Urine Appearance Urine pH Ur Specific [place] Urine Protein Urine Glucose (UA) Urine Ketones Urine Blood Urine Nitrate Urine Bilirubin Urine Urobilinogen Ur Leukocyte Esterase Urine RBC Urine WBC Ur Squamous Epith Cells Calcium Oxalate Crystal Amorphous Sediment Urine Bacteria Hyaline Casts Urine Mucus Ethyl Alcohol Blood Type Rho(D) Type Antibody Screen Crossmatch 02/03/20 02/04/20 02/04/20 22:36 02:20 02:20 WBC 5.2 Corrected WBC RBC 2.64 L Hgb 10.2 L Hct 32.6 L MCV 123.5 H MCH 38.6 H MCHC 31.3 RDW 19.0 H Plt Count 131 MPV 9.1 Gran % Neut % (Auto) 56.9 Lymph % (Auto) 30.9 [place] % (Auto) 9.7 Eos % (Auto) 1.3 Baso % (Auto) 0.6 Reticulocyte % (Auto) Neut # (Auto) 2.98 Lymph # (Auto) 1.6 [place] # (Auto) 0.5 Eos # (Auto) 0.1 Baso # (Auto) 0.0 Absolute Gran (auto) Nucleated RBC % (auto) 0 Nucleated RBCs # 0.0 ESR PT INR Sodium Potassium Chloride Carbon Dioxide Anion Gap BUN Creatinine GFR Calculation Glucose Calculated Osmolality Calcium Phosphorus Magnesium Iron TIBC % Saturation Unsat Iron Binding Ferritin Total Bilirubin AST ALT Alkaline Phosphatase Troponin T Baseline Troponin T 120 Minute 11.95 H Delta Troponin T 1.95 Troponin T Hi Sens 6Hr 8.79 Troponin T Hi Sens 6Hr Delta -1.21 L C-Reactive Protein Total Protein Albumin Globulin Lipase Vitamin B12 Folate Procalcitonin HCG, Qual Urine Color Urine Appearance Urine pH Ur Specific [place] Urine Protein Urine Glucose (UA) Urine Ketones Urine Blood Urine Nitrate Urine Bilirubin Urine Urobilinogen Ur Leukocyte Esterase Urine RBC Urine WBC Ur Squamous Epith Cells Calcium Oxalate Crystal Amorphous Sediment Urine Bacteria Hyaline Casts Urine Mucus Ethyl Alcohol Blood Type Rho(D) Type Antibody Screen Crossmatch 02/04/20 02/04/20 02/04/20 02:20 02:20 02:20 WBC Corrected WBC RBC Hgb Hct MCV MCH MCHC RDW Plt Count MPV Gran % Neut % (Auto) Lymph % (Auto) [place] % (Auto) Eos % (Auto) Baso % (Auto) Reticulocyte % (Auto) Neut # (Auto) Lymph # (Auto) [place] # (Auto) Eos # (Auto) Baso # (Auto) Absolute Gran (auto) Nucleated RBC % (auto) Nucleated RBCs # ESR PT 18.00 H INR 1.44 H Sodium 146 H Potassium 3.4 L Chloride 115 H Carbon Dioxide 23 Anion Gap 11.4 BUN 7 Creatinine 0.9 GFR Calculation 67.4 L Glucose 107 Calculated Osmolality 300 H Calcium 7.5 L Phosphorus 3.4 Magnesium 1.9 Iron TIBC % Saturation Unsat Iron Binding Ferritin Total Bilirubin 0.7 AST 29 ALT 45 H Alkaline Phosphatase 163 H Troponin T Baseline Troponin T 120 Minute Delta Troponin T Troponin T Hi Sens 6Hr Troponin T Hi Sens 6Hr Delta C-Reactive Protein Total Protein 3.9 L Albumin 1.9 L Globulin 2.0 Lipase Vitamin B12 Folate Procalcitonin HCG, Qual Urine Color Urine Appearance Urine pH Ur Specific [place] Urine Protein Urine Glucose (UA) Urine Ketones Urine Blood Urine Nitrate Urine Bilirubin Urine Urobilinogen Ur Leukocyte Esterase Urine RBC Urine WBC Ur Squamous Epith Cells Calcium Oxalate Crystal Amorphous Sediment Urine Bacteria Hyaline Casts Urine Mucus Ethyl Alcohol Blood Type Rho(D) Type Antibody Screen Crossmatch 02/04/20 02/05/20 02/05/20 06:04 06:48 06:48 WBC Cancelled Corrected WBC Cancelled RBC Cancelled Hgb Cancelled Hct Cancelled MCV Cancelled MCH Cancelled MCHC Cancelled RDW Cancelled Plt Count Cancelled MPV Cancelled Gran % Cancelled Neut % (Auto) Cancelled Lymph % (Auto) Cancelled [place] % (Auto) Cancelled Eos % (Auto) Cancelled Baso % (Auto) Cancelled Reticulocyte % (Auto) Neut # (Auto) Cancelled Lymph # (Auto) Cancelled [place] # (Auto) Cancelled Eos # (Auto) Cancelled Baso # (Auto) Cancelled Absolute Gran (auto) Cancelled Nucleated RBC % (auto) Cancelled Nucleated RBCs # Cancelled ESR PT INR Sodium Potassium Chloride Carbon Dioxide Anion Gap BUN Creatinine 0.8 GFR Calculation Glucose 69 Calculated Osmolality Calcium Phosphorus 2.8 Magnesium Iron TIBC % Saturation Unsat Iron Binding Ferritin Total Bilirubin 0.7 AST ALT Alkaline Phosphatase Troponin T Baseline Troponin T 120 Minute Delta Troponin T Troponin T Hi Sens 6Hr Troponin T Hi Sens 6Hr Delta C-Reactive Protein Total Protein Albumin Globulin 1.6 Lipase Vitamin B12 Folate Procalcitonin HCG, Qual Urine Color Yellow Urine Appearance Sl hazy Urine pH 5 Ur Specific [place] 1.010 Urine Protein Neg Urine Glucose (UA) Norm Urine Ketones Negative Urine Blood Neg Urine Nitrate Negative Urine Bilirubin Neg Urine Urobilinogen Norm Ur Leukocyte Esterase Negative Urine RBC 0-4 H Urine WBC 0-4 H Ur Squamous Epith Cells 0-4 H Calcium Oxalate Crystal 15-25 H Amorphous Sediment Not Reportable Urine Bacteria Trace Hyaline Casts 0-4 H Urine Mucus Trace Ethyl Alcohol Blood Type Rho(D) Type Antibody Screen Crossmatch 02/05/20 02/05/20 06:48 06:48 WBC Corrected WBC RBC Hgb Hct MCV MCH MCHC RDW Plt Count MPV Gran % Neut % (Auto) Lymph % (Auto) [place] % (Auto) Eos % (Auto) Baso % (Auto) Reticulocyte % (Auto) Neut # (Auto) Lymph # (Auto) [place] # (Auto) Eos # (Auto) Baso # (Auto) Absolute Gran (auto) Nucleated RBC % (auto) Nucleated RBCs # ESR PT INR Sodium Potassium Chloride Carbon Dioxide Anion Gap BUN Creatinine GFR Calculation Glucose Calculated Osmolality Calcium Phosphorus Cancelled Magnesium Cancelled Iron TIBC % Saturation Unsat Iron Binding Ferritin Total Bilirubin AST ALT Alkaline Phosphatase Troponin T Baseline Troponin T 120 Minute Delta Troponin T Troponin T Hi Sens 6Hr Troponin T Hi Sens 6Hr Delta C-Reactive Protein Total Protein Albumin Globulin Lipase Vitamin B12 Folate Procalcitonin HCG, Qual Negative Urine Color Urine Appearance Urine pH Ur Specific [place] Urine Protein Urine Glucose (UA) Urine Ketones Urine Blood Urine Nitrate Urine Bilirubin Urine Urobilinogen Ur Leukocyte Esterase Urine RBC Urine WBC Ur Squamous Epith Cells Calcium Oxalate Crystal Amorphous Sediment Urine Bacteria Hyaline Casts Urine Mucus Ethyl Alcohol Blood Type Rho(D) Type Antibody Screen Crossmatch Cardiac Studies: No Data to Display
[2020-02-05 08:33] LABS: Anion Gap 11.4 (5-19); Potassium 3.4 mmol/L (3.5-5.1)
[2020-02-05 08:34] LABS: Aspartate Amino Transferase 34 U/L (0-32)
[2020-02-05 08:50] LABS: INR 1.55 (0.8-1.2)
--- NOTE | 2020-02-05 09:15 | PM.PACU ---
PACU note Post-Anesthesia Exam: awake and vital signs stable Disposition: back to floor
--- NOTE | 2020-02-05 09:45 | PC.NURSE ---
I reported the low bp to the nurse 83/58
[2020-02-05] MEDS: magnesium sulfate premix 2 GM/50 ML PIGGYBACK IV (10:13)
--- NOTE | 2020-02-05 10:33 | PC.CHAP ---
Pastoral Care Encounter/Spiritual Assessment Type of Contact [] Declined [facility] visit [] Patient/Family/Request visit [] Outpatient visit [] Follow-up visit [] Physician referral [] Code/Alert [X] Routine visit [] Staff referral [] Actively dying [] Patient sleeping [] Family support [] [] Out of room [] Palliative care [] [] Receiving care in room [] Pre-surgical visit [] Trauma [] Long length of stay [] ICU visit [] Other: Relational/Emotional Strength [] Patient feels connected with others/family/visitors/staff [] Distress [] Loneliness/isolation [] Abandonment Spirituality of Patient [] Person of Teresa [] Attends Spiritism of their Teresa [] Believes in Prayer [] Reads Bible or Denominational materials [] There are Spiritual issues to be addressed Web Content Specialist Interventions [] Prayer [] Active listening [] Non-anxious presence [] Spiritual/emotional support [] Crisis/trauma care [] Spiritual counseling [] Bereavement support [] Provided bereavement packet [] Provided Bible/devotional materials [] Provided toy/stuffed animal, coloring book to patient or family member [] Provided Communion [] Anointing/[place] [] Salvation [] Completed spiritual assessment [] Other: Impact on Illness or Injury [] Angry [] Fearful [] Anxious [] Often cries [] Exhaustion [] Unable to work [] Unable to attend lutheran [] Unable to walk/stand [] Unable to read [] Unable to drive [] Unable to eat/drink [] Unable to sleep [] Unable to be with family [] Patient intubated [] Other: Summary Time spent with patient
[2020-02-05] MEDS: pantoprazole 40 mg SDV IVP ×2 (11:56→23:02)
[2020-02-05] MEDS: sucralfate 1 gm Tablet PO ×2 (14:30→20:30)
[2020-02-05 14:40] LABS: Basophils % 0.3 %; Eosinophils # 0.1 10^3/uL (0.0-0.8); Eosinophils % 1.1 %; Hematocrit 29.4 % (37.0-47.0); Lymphocytes % 16.4 %; Mean Corpuscular HGB Conc 30.6 g/dL (30.0-36.0); Mean Corpuscular Volume 124.1 fL (81-99); Mean Platelet Volume 9.4 fL (7.4-10.4); Monocytes # 0.4 10^3/uL (0.2-0.9); Monocytes % 6.5 %; Neutrophils # 4.63 10^3/uL (1.8-7.7); Neutrophils % 75.2 %; Nucleated Red Blood Cells % 0 %; Platelet Count 132 10^3/cmm (130-400); Red Blood Count 2.37 10^6/uL (4.1-5.3); White Blood Count 6.2 10^3/uL (4.0-10.0)
--- NOTE | 2020-02-05 15:31 | PC.NURSE ---
I reported the temp to the nurse. 100.5
[2020-02-05] MEDS: acetaminophen 325 mg Tablet 650 MG PO (15:38)
--- NOTE | 2020-02-05 21:03 | P.PN_ITS ---
Subjective Subjective: Interval history: States he is doing all right. Does not have much appetite. Try to eat just little bit of liquids. Still abdominal discomfort mid abdomen. Vitals/I&O/Wt Last Vital Signs Temp 98.5 F 02/05/20 19:44 Pulse 96 02/05/20 19:44 Resp 18 02/05/20 20:31 BP 108/76 02/05/20 19:44 Pulse Ox 96 02/05/20 19:44 02/05/20 02/05/20 02/05/20 06:59 14:59 22:59 Intake Total 1000 / 2430 2230 / 2230 580 / 2810 Output Total 400 / 700 650 / 650 Balance 600 / 1730 2230 / 2230 -70 / 2160 Physical Exam Const: COMMON NORMALS: no acute distress and patient oriented x3 OTHER: Awake, but appears somewhat withdrawn. Generally weak. HENMT: COMMON NORMALS: oropharynx normal Neck/C-Spine: COMMON NORMALS: no JVD Resp: COMMON NORMALS: normal respiratory effort and clear to auscultation bilaterally AUSCULTATION: clear to auscultation bilaterally Cardio: COMMON NORMALS: no JVD, regular rhythm, S1 normal heart sound present, S2 normal heart sound present and No murmurs present (Cardio) RHYTHM: regular rhythm HEART SOUNDS: S1 normal heart sound present and S2 normal heart sound present GI: COMMON NORMALS: Normal to inspection, nondistended, normoactive bowel sounds present and Soft to palpation PALPATION: Yes Soft to palpation and Yes Tenderness to palpation present (GI) (Mid abdomen) Extremity: COMMON NORMALS: no joint enlargement and no pedal edema Neuro: COMMON NORMALS: patient oriented x3 and moves all extremities Skin: COMMON NORMALS: no rashes or lesions noted GENERAL SKIN EXAM: no rashes or lesions noted Data : 02/05/20 14:09 02/05/20 06:48 A&P Assessment and plan (1) Upper GI bleed: CBC was not obtained this morning. Appears perhaps due to difficulties w ith blood draw. Requested repeat sample. Subsequently coming back as 9. She says has not had any more bloody stools. Having mid abdominal discomfort. Discussed EGD with surgery. Appears no abnormality noted apart from some retained food. Discussed with her. Consideration may also be given to use some gastroparesis. She does say that sometimes is feeling like food is stuck in her stomach and not moving through. Has known gastroparesis for which was started on erythromycin. Resume if this is available. Tonight we will monitor in the hospital she is not eating very well. We will try to see if can eat some clear liquids. Continue antibiotics for now for colitis. Once this is treated, refer for additional assessment by colonoscopy. Recheck hemoglobin in the morning. Attempt to collect stool studies. She does report drinking water out of a well, although her mother is also drinking from the same source and has not been ill. May need to consider having the water tested. She denies any hematemesis or any vomiting. -Denies alcohol use, denies drug use, denies history of hep C, denies history of esophageal varices -Has a history of anastomotic ulcer status post gastric bypass -Last EGD on 06/21/2019 showed a 2 cm ulcer at GJ junction Status: Acute (2) Colitis: -Seen to have colitis on CT scan, has complaints of generalized abdominal pain -Continue Cipro and Flagyl -Stool studies so far not collected. Collect if possible. Refer for colonoscopy after recovers. Status: Acute (3) Acute pancreatitis: Trial of clear liquid. Not tolerate diet well. Persistent mid abdominal pain. Recheck lipase -Chronic pancreatitis She does not use pancreatic lipase Status: Acute Qualifiers: Acute pancreatitis complication: no infection or necrosis Pancreatitis type: unspecified pancreatitis type Qualified Code(s): K85.90 - Acute pancreatitis without necrosis or infection, unspecified (4) Chronic post-traumatic stress disorder: Status: Chronic (5) Generalized anxiety disorder: Status: Chronic (6) Macrocytosis: Status: Acute (7) Gastroparesis: Had a gastric emptying study, that showed significant gastroparesis at 2- hour postmeal On erythromycin as outpatient Status: Acute (8) Macrocytosis without anemia: -Significant macrocytosis, B12, folate are okay, iron studies with likely ACD, peripheral smear unresulted, blood alcohol level negative Status: Acute Attestations Medical Necessity Statement*: Requiring hospitalization of over 2 midnights for assessment management of GI bleeding, colitis, pancreatitis, poor oral intake. 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
[2020-02-05] MEDS: LORazepam 1 mg Tablet PO (23:03)
[2020-02-06] VITALS (8 sets, daily range): BP systolic 93–113; BP diastolic 65–77; PULSE 88–107; RESP 18–20; TEMP 36.5–36.7; O2SAT 95–98
[2020-02-06] MEDS: morphine 4 mg/mL SDV 1 mL 2 MG IVP ×4 (00:39→17:05)
[2020-02-06] MEDS: metroNIDAZOLE IV 500 MG/100 ML PREMIX 100 MG IV ×4 (00:41→20:22)
[2020-02-06] MEDS: sodium chloride 0.9% 1,000 ML 100 ML IV ×2 (04:47→23:11)
[2020-02-06 05:28] LABS: Basophils % 0.3 %; Eosinophils # 0.1 10^3/uL (0.0-0.8); Eosinophils % 1.8 %; Hematocrit 26.9 % (37.0-47.0); Hemoglobin 8.4 g/dL (11.5-15.3); Lymphocytes # 0.9 10^3/uL (0.8-4.8); Lymphocytes % 14.2 %; Mean Corpuscular HGB Conc 31.2 g/dL (30.0-36.0); Mean Corpuscular Hemoglobin 38.7 pg (28.0-34.0); Mean Platelet Volume 10.1 fL (7.4-10.4); Monocytes # 0.4 10^3/uL (0.2-0.9); Monocytes % 6.1 %; Neutrophils # 4.64 10^3/uL (1.8-7.7); Neutrophils % 76.9 %; Nucleated Red Blood Cells % 0 %; Platelet Count 98 10^3/cmm (130-400); Red Blood Count 2.17 10^6/uL (4.1-5.3); Red Cell Distribution Width 17.3 % (12.1-15.1)
[2020-02-06 05:30] LABS: INR 1.48 (0.8-1.2)
[2020-02-06 05:55] LABS: Lipase 7 U/L (13-60)
[2020-02-06 05:56] LABS: Phosphorus 2.1 mg/dL (2.5-4.5)
[2020-02-06 05:58] LABS: Alanine Aminotransferase 37 U/L (0-33); Albumin Level 1.4 g/dL (3.5-5.2); Alkaline Phosphatase 128 IU/L (35-105); Blood Urea Nitrogen 3 mg/dL (6-20); Carbon Dioxide 20 mmol/L (22-29); Chloride 117 mmol/L (98-107); Globulin 1.9 g/dL (1.3-4.6); Glomerular Filtration Rate 77.2 mL/min (90-130); Glucose 72 mg/dL (65-115); Osmolality Calculated 293 mOsm/kg (285-295); Sodium 144 mmol/L (136-145); Total Bilirubin 0.7 mg/dL (0.15-1.2); Total Protein 3.3 g/dL (6.6-8.7)
[2020-02-06 05:59] LABS: Anion Gap 10.1 (5-19); Potassium 3.1 mmol/L (3.5-5.1)
[2020-02-06 06:13] LABS: Aspartate Amino Transferase 34 U/L (0-32)
--- NOTE | 2020-02-06 07:42 | PC.OT ---
OT note for 02/05/20: Pt had procedure. Will attempt later as able.
[2020-02-06] MEDS: sucralfate 1 gm Tablet PO ×3 (08:30→20:22)
[2020-02-06] MEDS: LORazepam 1 mg Tablet PO ×2 (08:30→17:05)
--- NOTE | 2020-02-06 09:28 | P.PN_ITS ---
Subjective Subjective: Interval history: Stone abdominal pain. No vomiting. Has had no stool. Poor appetite. Vitals/I&O/Wt Last Vital Signs Temp 97.7 F 02/06/20 07:39 Pulse 107 H 02/06/20 07:39 Resp 18 02/06/20 07:39 BP 108/77 02/06/20 07:39 Pulse Ox 95 02/06/20 07:39 02/05/20 02/06/20 02/06/20 22:59 06:59 14:59 Intake Total 580 / 2810 1050 / 3860 240 / 240 Output Total 770 / 770 100 / 870 350 / 350 Balance -190 / 2040 950 / 2990 -110 / -110 Physical Exam Const: COMMON NORMALS: no acute distress and patient oriented x3 OTHER: Awake, but appears somewhat withdrawn. Generally weak. HENMT: COMMON NORMALS: oropharynx normal Neck/C-Spine: COMMON NORMALS: no JVD Resp: COMMON NORMALS: normal respiratory effort and clear to auscultation bilaterally AUSCULTATION: clear to auscultation bilaterally Cardio: COMMON NORMALS: no JVD, regular rhythm, S1 normal heart sound present, S2 normal heart sound present and No murmurs present (Cardio) RHYTHM: regular rhythm HEART SOUNDS: S1 normal heart sound present and S2 normal heart sound present GI: COMMON NORMALS: Normal to inspection, nondistended, normoactive bowel sounds present and Soft to palpation PALPATION: Yes Soft to palpation and Yes Tenderness to palpation present (GI) (Mid abdomen) Extremity: COMMON NORMALS: no joint enlargement and no pedal edema Neuro: COMMON NORMALS: patient oriented x3 and moves all extremities Skin: COMMON NORMALS: no rashes or lesions noted GENERAL SKIN EXAM: no rashes or lesions noted Data : 02/06/20 05:14 02/06/20 05:14 A&P Assessment and plan (1) Upper GI bleed: Persistent tenderness mid abdomen, slightly to the left. Hemoglobin down today to 8.4. Platelets down somewhat to 98,000. Poor appetite and oral intake. Discussed EGD with surgery. Appears no abnormality noted apart from some retai kaity food. Discussed with her. Consideration may also be given to use some gastroparesis. She does say that sometimes is feeling like food is stuck in her stomach and not moving through. Discussed regarding gastroparesis. Resume erythromycin for gastroparesis. Watch QTC. Continue to antibiotics for colitis. Peripheral smear requested for thrombocytopenia. Recheck hemoglobin and platelets normal. Once colitis is treated, refer for additional assessment by colonoscopy. Attempt to collect stool studies. She does report drinking water out of a well, although her mother is also drinking from the same source and has not been ill. May need to consider having the water tested. She denies any hematemesis or any vomiting. -Denies alcohol use, denies drug use, denies history of hep C, denies history of esophageal varices -Has a history of anastomotic ulcer status post gastric bypass -Last EGD on 06/21/2019 showed a 2 cm ulcer at GJ junction Status: Acute (2) Colitis: Monitor blood counts. Anemia, thrombocytopenia. Peripheral smear requested. -Seen to have colitis on CT scan, has complaints of generalized abdominal pain -Continue Cipro and Flagyl -Stool studies so far not collected. Collect if possible. Refer for colonoscopy after recovers. Status: Acute (3) Acute pancreatitis: Trial of clear liquids as tolerating. Persistent mid abdominal pain. Lipase appears to be improving. -Chronic pancreatitis She does not use pancreatic lipase Status: Acute Qualifiers: Acute pancreatitis complication: no infection or necrosis Pancreatitis type: unspecified pancreatitis type Qualified Code(s): K85.90 - Acute pancre atitis without necrosis or infection, unspecified (4) Chronic post-traumatic stress disorder: Status: Chronic (5) Generalized anxiety disorder: Status: Chronic (6) Macrocytosis: Status: Acute (7) Gastroparesis: Had a gastric emptying study, that showed significant gastroparesis at 2- hour postmeal Resume erythromycin. Status: Acute (8) Macrocytosis without anemia: -Significant macrocytosis, B12, folate are okay, iron studies with likely ACD, peripheral smear requested, blood alcohol level negative Status: Acute (9) Hypokalemia: Replace Status: Acute Attestations Medical Necessity Statement*: Continue admission for assessment management of colitis, anemia, thrombocytopenia, pancreatitis (acute on chronic), poor oral intake. 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 Cook Helper Dessert for [facility] Fwd Diagnoses Upper GI bleed K92.2 Colitis K52.9 Acute pancreatitis K85.90 Acute pancreatitis complication: no infection or necrosis Pancreatitis type: unspecified pancreatitis type Chronic post-traumatic stress disorder F43.12 Generalized anxiety disorder F41.1 Macrocytosis D75.89 Gastroparesis K31.84 Macrocytosis without anemia D75.89 Hypokalemia E87.6
--- NOTE | 2020-02-06 10:37 | PC.OT ---
OT Note: OT screen complete, patient did not require assistance with her ADLs, patient reports she is at her baseline at this time. No further OT services required at this time.
[2020-02-06] MEDS: HYDROcodone-acetaminophen 5-325 mg Tablet 1 TAB PO (10:43)
--- NOTE | 2020-02-06 10:58 | PC.CHAP ---
Pastoral Care Encounter/Spiritual Assessment Type of Contact [] Declined personal driver visit [] Patient/Family/Request visit [] Outpatient visit [] Follow-up visit [] Physician referral [] Code/Alert [x] Routine visit [] Staff referral [] Actively dying [] Patient sleeping [] Family support [] [] Out of room [] Palliative care [] [x] Receiving care in room [] Pre-surgical visit [] Trauma [] Long length of stay [] ICU visit [] Other: Relational/Emotional Strength [x] Patient feels connected with others/family/visitors/staff [] Distress [] Loneliness/isolation [] Abandonment Spirituality of Patient [x] Person of Teresa [] Attends Gnosticism of their Teresa [x] Believes in Prayer [] Reads Bible or Samaritan materials [] There are Spiritual issues to be addressed Senior Principal Process Engineer Interventions [x] Prayer [x] Active listening [x] Non-anxious presence [x] Spiritual/emotional support [] Crisis/trauma care [x] Spiritual counseling [] Bereavement support [] Provided bereavement packet [] Provided Bible/devotional materials [] Provided toy/stuffed animal, coloring book to patient or family member [] Provided Communion [] Anointing/[place] [] Salvation [x] Completed spiritual assessment [] Other: Impact on Illness or Injury [] Angry [] Fearful [] Anxious [] Often cries [] Exhaustion [] Unable to work [] Unable to attend samaritan [] Unable to walk/stand [] Unable to read [] Unable to drive [] Unable to eat/drink [] Unable to sleep [] Unable to be with family [] Patient intubated [] Other: Summary Feels good not sure about what needs to be done, is going home to family Time spent with patient 10 mins
--- NOTE | 2020-02-06 12:18 | ANE.PACU2 ---
Inpatient post-anesthesia follow up: Airway intact: Yes Vital signs: Temperature 98.0 F Pulse Rate [Monito r] 89 Pulse Rate 95 Respiratory Rate 18 Blood Pressure [Ri ght Arm] 99/73 Blood Pressure 99/68 Pulse Oximetry 97 Oxygen Delivery Me thod Room Air Oxygen Flow Rate 2 Fraction of Inspir ed Oxygen Hydration adequate: Yes Nausea and vomiting: No Pain level: 1 Mental status: Baseline
--- NOTE | 2020-02-06 12:45 | XR_ITS ---
WS: [id number] CHEST XRAY TECHNIQUE: Portable chest. CLINICAL INFORMATION: PICC PLACEMENT COMPARISON: None. FINDINGS: Right PICC line with tip in the mid SVC. Patient is rotated. Patchy pulmonary infiltrates the left mi dlung. Surgical clips at the GE junction. XR/XR chest 1V portable [id number] IMPRESSION: Right PICC line with tip in the mid SVC.
[2020-02-06] MEDS: pantoprazole 40 mg SDV IVP ×2 (13:06→23:38)
[2020-02-06] MEDS: potassium chloride premix 100 ML 25 MEQ IV (13:07)
--- NOTE | 2020-02-06 13:18 | PC.NURSE ---
PICC ready for use. Primary nurse notified.
[2020-02-06] MEDS: ciprofloxacin 400 MG/200 ML PREMIX 200 MG IV (14:23)
--- NOTE | 2020-02-06 18:07 | PC.NURSE ---
SHIFT SUMMARY PATIENT HAS RESTED MOST OF THE DAY. PATIENT LOST IV ACCESS THIS AM. ANOTHER IV ACCESS WAS NOT ABLE TO BE OBTAINED. DR. SMITH NOTIFIED AND PICC LINE ORDERED. PATIENT NOW HAS PICC IN UPPER RIGHT ARM. FUNCTIONING WELL. PATIENT STILL RECEIVING IV MORPHINE Q4H. TOLERATING CLEAR LIQUIDS. GOOD URINE OUTPUT. CURRENTLY RESTING IN BED.
[2020-02-06] MEDS: trazodone 150 mg Tablet PO (20:26)
[2020-02-07] VITALS: BP 111/75; PULSE 104; RESP 16; TEMP 36.4; O2SAT 96
[2020-02-07] MEDS: ciprofloxacin 400 MG/200 ML PREMIX 200 MG IV (00:18)
[2020-02-07 04:00] VITALS: BP 111/80; PULSE 109; RESP 16; TEMP 36.7; O2SAT 100
[2020-02-07] MEDS: metroNIDAZOLE IV 500 MG/100 ML PREMIX 100 MG IV (04:34)
[2020-02-07 06:12] LABS: Basophils % 0.3 %; Eosinophils % 0.5 %; Hematocrit 26.8 % (37.0-47.0); Hemoglobin 8.4 g/dL (11.5-15.3); Lymphocytes # 0.6 10^3/uL (0.8-4.8); Lymphocytes % 9.1 %; Mean Corpuscular HGB Conc 31.3 g/dL (30.0-36.0); Mean Corpuscular Hemoglobin 37.7 pg (28.0-34.0); Mean Corpuscular Volume 120.2 fL (81-99); Mean Platelet Volume 9.6 fL (7.4-10.4); Monocytes # 0.2 10^3/uL (0.2-0.9); Monocytes % 3.5 %; Neutrophils # 5.58 10^3/uL (1.8-7.7); Neutrophils % 86.1 %; Nucleated Red Blood Cells % 0 %; Platelet Count 115 10^3/cmm (130-400); Red Blood Count 2.23 10^6/uL (4.1-5.3); Red Cell Distribution Width 17.2 % (12.1-15.1); White Blood Count 6.5 10^3/uL (4.0-10.0)
[2020-02-07 06:26] LABS: Alanine Aminotransferase 118 U/L (0-33); Albumin Level 1.4 g/dL (3.5-5.2); Alkaline Phosphatase 148 IU/L (35-105); Aspartate Amino Transferase 540 U/L (0-32); Blood Urea Nitrogen 2 mg/dL (6-20); Calcium 7.2 mg/dL (8.5-10.5); Carbon Dioxide 19 mmol/L (22-29); Chloride 118 mmol/L (98-107); Globulin 1.8 g/dL (1.3-4.6); Glomerular Filtration Rate 107.6 mL/min (90-130); Glucose 85 mg/dL (65-115); Osmolality Calculated 291 mOsm/kg (285-295); Sodium 143 mmol/L (136-145); Total Bilirubin 0.9 mg/dL (0.15-1.2); Total Protein 3.2 g/dL (6.6-8.7)
[2020-02-07 06:34] LABS: Anion Gap 9.7 (5-19); Potassium 3.7 mmol/L (3.5-5.1)
--- NOTE | 2020-02-07 07:00 | ECG_ITS ---
[facility] Test Date: 2020-02-07 Pat Name: Therese Schaefer Department: Room: 277 Gender: Female Data Entry Email Processor: : 1975 Requested By: Jr Celeste Order Number: [id number] Reading MD: RODO LÓPEZ Measurements Intervals [place] Rate: 107 P: 46 MD: 150 QRS: -20 QRSD: 84 T: 0 QT: 352 QTc: 471 Interpretive Statements SINUS TACHYCARDIA LOW QRS VOLTAGE IN PRECORDIAL LEADS [QRS DEFLECTION < 1.0 mV IN CHEST LEADS] NONSPECIFIC T-WAVE ABNORMALITY ABNORMAL RHYTHM ECG Compared to ECG 02/03/2020 22:14:35 Sinus rhythm no longer present T-wave abnormality still present Electronically Signed On 02-07-2020 19:33:00 BUSINESS ENTERPRISE OFFICER by RODO LÓPEZ [id number]
[2020-02-07] MEDS: sucralfate 1 gm Tablet PO ×3 (07:50→20:58)
[2020-02-07] MEDS: sodium chloride 0.9% 1,000 ML 100 ML IV (07:50)
[2020-02-07] MEDS: LORazepam 1 mg Tablet PO (07:50)
[2020-02-07 08:00] VITALS: BP 98/67; PULSE 64; RESP 18; TEMP 36.7; O2SAT 93
[2020-02-07] MEDS: pantoprazole 40 mg SDV IVP (10:21)
[2020-02-07] MEDS: morphine 4 mg/mL SDV 1 mL 2 MG IVP ×2 (10:21→15:50)
--- NOTE | 2020-02-07 11:07 | P.PN_ITS ---
Subjective Subjective: Interval history: She is having some nausea, says that she had one episode of vomiting. Discomfort mid/left abdomen. Vitals/I&O/Wt Last Vital Signs Temp 98.0 F 02/07/20 08:00 Pulse 64 02/07/20 08:00 Resp 18 02/07/20 08:00 BP 98/67 02/07/20 08:00 Pulse Ox 93 02/07/20 08:00 02/06/20 02/07/20 02/07/20 22:59 06:59 14:59 Intake Total 1020 / 2360 720 / 3080 865 / 865 Output Total 400 / 850 600 / 1450 200 / 200 Balance 620 / 1510 120 / 1630 665 / 665 Physical Exam Const: COMMON NORMALS: no acute distress and patient oriented x3 OTHER: Awake, but appears somewhat withdrawn. Laying in bed on her side. HENMT: COMMON NORMALS: oropharynx normal Neck/C-Spine: COMMON NORMALS: no JVD Resp: COMMON NORMALS: normal respiratory effort and clear to auscultation bilaterally AUSCULTATION: clear to auscultation bilaterally Cardio: COMMON NORMALS: no JVD, regular rhythm, S1 normal heart sound present, S2 normal heart sound present and No murmurs present (Cardio) RHYTHM: regular rhythm HEART SOUNDS: S1 normal heart sound present and S2 normal heart sound present GI: COMMON NORMALS: Normal to inspection, nondistended, normoactive bowel sounds present and Soft to palpation PALPATION: Yes Soft to palpation and Yes Tenderness to palpation present (GI) (Mildly tender mid-abdomen) Extremity: COMMON NORMALS: no joint enlargement GENERAL: Yes edema (2+ lower legs) Neuro: COMMON NORMALS: patient oriented x3 and moves all extremities Skin: COMMON NORMALS: no rashes or lesions noted GENERAL SKIN EXAM: no rashes or lesions noted Data : 02/07/20 05:41 02/07/20 05:41 Micro: Microbiology 02/07/20 08:00 Stool Lactoferrin - Final Stool Occult Blood (FIT) - Final A&P Assessment and plan (1) Colitis: Persistent abdominal pain. Nausea, poor oral intake. Had an episode of vomiting earlier. Vomiting may also be secondary to gastroparesis. Her erythromycin was presumed, but I see she has not been getting it, appears there is a different medication on the formulary. Discussed with pharmacy. This will be changed over. With regards to colitis, today she has significant rise in transaminases, AST up as high as 540. Due to this for now we will hold Cipro and Flagyl. If we need to resume antibiotic, may have to switch over to a different agent. I am told that stool samples finally obtained today. She reports again having liquid stool today. Follow-up stool studies. She does report drinking water out of a well, although her mother is also drinki ng from the same source and has not been ill. May need to consider having the water tested. She denies any hematemesis or any vomiting. Thrombocytopenia was assessed by peripheral smear. No schistocytosis noted. Low suspicion for TTP/HUS. Discussed with patient. Appears to be somewhat better today, 115. Monitor blood counts or any signs of development of TTP/HUS. Colitis on CT scan, has complaints of generalized abdominal pain -Stool studies so far not collected. Collect if possible. Refer for colonoscopy after recovers. Status: Acute (2) Transaminitis: Chronic transaminitis, but currently today has significant rise up to AST 540, ALT 118, alk phos slight rise up to 148. Discussed with her has known fatty liver disease for which he needs to follow-up with primary care provider. Appears to have some acute injury hepatocellular most likely, possibly from acute illness. Medications reviewed, only received 1 dose of Tylenol. Will discontinue. For now hold Cipro and Flagyl. Recheck level. May need to consider different antibiotic depending on condition or findings on stool studies. Status: Acute (3) Acute pancreatitis: Possible continued pancreatitis, although lipase had improved. Continues to have abdominal pain. Poor oral intake. Nausea. Has been tolerating diet on and off. Continue trials. Chronic pancreatitis She does not use pancreatic lipase Status: Acute Qualifiers: Acute pancreatitis complication: no infection or necrosis Pancreatitis type: unspecified pancreatitis type Qualified Code(s): K85.90 - Acute pancreatitis without necrosis or infection, unspecified (4) Upper GI bleed: Hemoglobin stabilized. 8.4. Continue PPI. Assessment and treatment of colitis as above. Continue to assessment and treatment of colitis. Peripheral smear performed for thrombocytopenia. Recheck hemoglobin and platelets normal. Once colitis is treated, refer for additional assessment by colonoscopy. -Denies alcohol use, denies drug use, denies history of hep C, denies history of esophageal varices -Has a history of anastomotic ulcer status post gastric bypass -Last EGD on 06/21/2019 showed a 2 cm ulcer at GJ junction Status: Acute (5) Chronic post-traumatic stress disorder: Status: Chronic (6) Generalized anxiety disorder: Status: Chronic (7) Macrocytosis: Status: Acute (8) Gastroparesis: Had a gastric emptying study, that showed significant gastroparesis at 2- hour postmeal Resume erythromycin. Status: Acute (9) Macrocytosis without anemia: -Significant macrocytosis, B12, folate are okay, iron studies with likely ACD, peripheral smear requested, blood alcohol level negative Status: Acute (10) Hypokalemia: Replaced Status: Acute Additional A&P Information Confusion: Today she appears to also have an episode of confusion. Possibly related to acute hepatocellular injury, otherwise possible encephalopathy related to infection, or possibly pain medication. We will treat underlying is sues as above. Monitor condition. Supportive care. Reassurance. She is alert and oriented x3, has insight into her GI problems, but says somebody had come over and talk to her about the procedure that may need to be performed on her brain. She gets somewhat embarrassed when we discussed this more, and appears realized that this was not something that really happened. Lower extremity edema: 2+ pitting edema noted today. Will hold additional IV fluids for now. Attestations Medical Necessity Statement*: Continue admission for assessment of management of worsening transaminitis, hepatocellular liver injury, colitis, acute blood loss anemia with GI bleeding, poor oral intake, also with underlying conditions including chronic pancreatitis, gastroparesis. 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 Bobbin Cleaner for [facility] Fwd Diagnoses Colitis K52.9 Transaminitis R74.01 Acute pancreatitis K85.90 Acute pancreatitis complication: no infection or necrosis Pancreatitis type: unspecified pancreatitis type Upper GI bleed K92.2 Chronic post-traumatic stress disorder F43.12 Generalized anxiety disorder F41.1 Macrocytosis D75.89 Gastroparesis K31.84 Macrocytosis without anemia D75.89 Hypokalemia E87.6
[2020-02-07 11:43] VITALS: BP 109/75; PULSE 112; RESP 18; TEMP 36.7; O2SAT 95
[2020-02-07 12:11] LABS: Creatine Phosphokinase 72 U/L (26-192)
[2020-02-07 15:29] VITALS: BP 125/76; PULSE 84; RESP 18; TEMP 36.8; O2SAT 98
--- NOTE | 2020-02-07 17:23 | PC.NURSE ---
SHIFT SUMMARY PATIENT HAS BEEN MORE LETHARGIC TODAY. STILL AMBULATING HERSELF TO THE BATHROOM. PATIENT HAS HAD MOMENTS OF CONFUSION. AT ONE POINT THIS EVENING PATIENT FOLLOWED THIS NURSE AROUND THE ROOM AND ATTEMPTED TO FOLLOW ME INTO THE HALLWAY. THIS NURSE ASKED PATIENT WHERE SHE WAS GOING AND SHE SAID WITH YOU . I EXPLAINED THAT I WAS GOING INTO ANOTHER PATIENT'S ROOM AND PATIENT STATED OKAY, I'LL JUST LAY DOWN THEN. THIS NURSE THEN PROCEEDED TO ASK PATIENT IF SHE KNEW WHERE SHE WAS AND PATIENT ANSWERED APPROPRIATELY. PATIENT THEN TOLD THIS NURSE SHE WAS HAVING TROUBLE SPEAKING BECAUSE HER TEETH ARE NOT FITTING RIGHT . THIS NURSE TOLD THE PATIENT SHE COULD BE UNDERSTOOD BUT SEEMED SLIGHTLY CONFUSED. PATIENT THEN REALIZED WHAT SHE HAD DONE AND BECAME FRUSTRATED. THIS NURSE REITERATED WHAT DR. SMITH HAD EXPLAINED EARLIER IN THE DAY ABOUT HER CARE. PATIENT UNDERSTOOD AND IS CURRENTLY RESTING IN BED.
[2020-02-07 19:56] VITALS: BP 103/70; PULSE 100; RESP 18; TEMP 36.6; O2SAT 99
[2020-02-07] MEDS: trazodone 150 mg Tablet PO (20:58)
[2020-02-08] VITALS (7 sets, daily range): BP systolic 96–112; BP diastolic 66–74; PULSE 104–132; RESP 16–18; TEMP 36.6–37; O2SAT 93–98
[2020-02-08] MEDS: sodium chloride 0.9 % (flush) syringe 10 mL 2 ML IV ×3 (01:40→15:29)
[2020-02-08] MEDS: pantoprazole 40 mg SDV IVP ×2 (01:40→11:57)
[2020-02-08 06:18] LABS: Basophils % 0.4 %; Eosinophils % 0.4 %; Hematocrit 26.6 % (37.0-47.0); Hemoglobin 8.5 g/dL (11.5-15.3); Lymphocytes # 0.6 10^3/uL (0.8-4.8); Lymphocytes % 13.3 %; Mean Corpuscular Hemoglobin 38.1 pg (28.0-34.0); Mean Corpuscular Volume 119.3 fL (81-99); Mean Platelet Volume 9.4 fL (7.4-10.4); Monocytes # 0.2 10^3/uL (0.2-0.9); Monocytes % 4.8 %; Neutrophils # 3.69 10^3/uL (1.8-7.7); Neutrophils % 80.4 %; Nucleated Red Blood Cells % 0 %; Platelet Count 132 10^3/cmm (130-400); Red Blood Count 2.23 10^6/uL (4.1-5.3); Red Cell Distribution Width 17.2 % (12.1-15.1); White Blood Count 4.6 10^3/uL (4.0-10.0)
[2020-02-08 06:32] LABS: INR 2.41 (0.8-1.2)
[2020-02-08 06:54] LABS: Alanine Aminotransferase 205 U/L (0-33); Albumin Level 1.5 g/dL (3.5-5.2); Alkaline Phosphatase 208 IU/L (35-105); Aspartate Amino Transferase 546 U/L (0-32); Blood Urea Nitrogen 2 mg/dL (6-20); Calcium 7.4 mg/dL (8.5-10.5); Carbon Dioxide 18 mmol/L (22-29); Chloride 117 mmol/L (98-107); Globulin 1.8 g/dL (1.3-4.6); Glomerular Filtration Rate 77.2 mL/min (90-130); Glucose 62 mg/dL (65-115); Lipase 10 U/L (13-60); Osmolality Calculated 292 mOsm/kg (285-295); Sodium 144 mmol/L (136-145); Total Bilirubin 0.9 mg/dL (0.15-1.2); Total Protein 3.3 g/dL (6.6-8.7)
--- NOTE | 2020-02-08 07:35 | PC.NURSE ---
Upon rounding nurse found an empty pill bottle in patient room, Nurse questioned pt if she had taken any medication in her room, pt denied taking or having any meds in her possession, patient gave nurse permission to look through her belongings. Nurse found several bottles of OTC sleep aids and other OTC meds, including OTC tylenol PM. Nurse explained to pt that she could not keep meds in her room and meds would be locked in pyxis for safe keeping and returned upon discharge.
[2020-02-08 08:15] LABS: Anion Gap 12.9 (5-19); Potassium 3.9 mmol/L (3.5-5.1)
--- NOTE | 2020-02-08 08:21 | ECG_ITS ---
[facility] Test Date: 2020-02-08 Pat Name: Therese Schaefer Department: Room: 277 Gender: Female Bacteriology Research Assistant: : 1975 Requested By: Jr Celeste Order Number: [id number] Rocio MD: Angie Crook M.D. Measurements Intervals [place] Rate: 127 P: 47 CO: 150 QRS: -18 QRSD: 78 T: 60 QT: 335 QTc: 487 Interpretive Statements SINUS TACHYCARDIA LOW QRS VOLTAGE IN PRECORDIAL LEADS [QRS DEFLECTION < 1.0 mV IN CHEST LEADS] POSSIBLE ANTERIOR MYOCARDIAL INFARCTION [30 ms Q WAVE IN V3/V4, OR R < 0.2 mV IN V4], PROBABLY OLD Compared to ECG 02/07/2020 08:55:56 Myocardial infarct finding now present T-wave abnormality no longer present Electronically Signed On 02-08-2020 11:31:35 FINANCIAL SERVICES EDUCATION CONSULTANT by Angie Crook M.D. [id number]
--- NOTE | 2020-02-08 08:22 | USR_ITS ---
PROCEDURE INFORMATION: Exam: US Abdomen, Limited; Right Upper Quadrant Exam date and time: 02/08/2020 8:26 AM Age: 44 years old Clinical indication: Abnormal findings; Abnormal lab test; Elevated liver enzymes; Additional info: Perihepatic and duplex portal, hepatic veins, splenic TECHNIQUE: Imaging protocol: US abdomen. Real time ultrasound with image documentation. Limited exam focused on the right upper quadrant. COMPARISON: CT abdomen pelvis w con* [id number] 02/03/2020 9:11 PM FINDINGS: Liver: There is diffuse increased echogenicity of the liver indicating fatty liver. No liver masses are seen. Gallbladder: Cholecystectomy. Common bile duct: There is mild prominence of the extrahepatic bile ducts which is normal after cholecystectomy. Pancreas: Visualized pancreas is unremarkable. Right kidney: Normal. No mass. No hydronephrosis. Portal venous: Duplex imaging of the portal and hepatic veins show normal flow pattern with no evidence of obstruction. Inferior vena cava: The inferior vena cava is unremarkable. Intraperitoneal space: There is a small ascites with some fluid in Garcia's pouch. US/US abdomen limited [id number] IMPRESSION: 1. Fatty liver. 2. Minimal ascites. 3. Normal duplex vascular study of the liver.
[2020-02-08] MEDS: sucralfate 1 gm Tablet PO ×2 (10:35→15:30)
[2020-02-08 11:22] LABS: Acetaminophen < 5.0 ug/mL (10-30)
--- NOTE | 2020-02-08 11:31 | P.PN_ITS ---
Subjective Subjective: Interval history: Reports feels about the same. Oriented x3. Denies remembering any other procedures being scheduled. Sometimes trails off topic. Seems to remember a physician coming in from [facility] yesterday but says he was here to visit her neighbor (unable to confirm if that is the case). Still having mid abdominal pain, today a little more toward the right side. Vitals/I&O/Wt Last Vital Signs Temp 97.8 F 02/08/20 08:00 Pulse 128 H 02/08/20 08:00 Resp 18 02/08/20 08:00 BP 106/72 02/08/20 08:00 Pulse Ox 93 02/08/20 08:00 02/07/20 02/08/20 02/08/20 22:59 06:59 14:59 Intake Total 300 / 1405 Output Total 350 / 550 Balance 300 / 1205 -350 / 855 Physical Exam Const: COMMON NORMALS: no acute distress and patient oriented x3 OTHER: Awake, a little bit more energetic and interactive. Slightly better spirits. HENMT: COMMON NORMALS: oropharynx normal Neck/C-Spine: COMMON NORMALS: no JVD Resp: COMMON NORMALS: normal respiratory effort and clear to auscultation bilaterally AUSCULTATION: clear to auscultation bilaterally Cardio: COMMON NORMALS: no JVD, regular rhythm, S1 normal heart sound present, S2 normal heart sound present and No murmurs present (Cardio) RHYTHM: regular rhythm HEART SOUNDS: S1 normal heart sound present and S2 normal heart sound present GI: COMMON NORMALS: Normal to inspection, nondistended, normoactive bowel sounds present and Soft to palpation PALPATION: Yes Soft to palpation and Yes Tenderness to palpation present (GI) (Mildly tender mid-abdomen) Extremity: COMMON NORMALS: no joint enlargement GENERAL: Yes edema (2+ lower legs) Neuro: COMMON NORMALS: patient oriented x3 and moves all extremities Skin: COMMON NORMALS: no rashes or lesions noted GENERAL SKIN EXAM: no rashes or lesions noted Data : 02/08/20 06:00 02/08/20 06:00 Micro: Microbiology 02/07/20 08:00 Stool Lactoferrin - Final Stool Enteric Pathogens (PCR) - Final Parasite Antigen Panel - Final C.difficile Toxin B Gene (PCR) - Final Occult Blood (FIT) - Final A&P Assessment and plan (1) Transaminitis: Transaminitis today is worse. AST up to 546. ALT 205. Alkaline phosphatase 208. INR is worse at 2.41. Yesterday some episodes of confusion. Today it appears perhaps a bit better, but still trails of topic occasionally. This morning it was reported to me that she had a bottle of Tylenol found on her person. The bottle was empty. It is not clear whether she had taken any Tylenol here. Discussing with her she says that she has been taking Tylenol at home since she has been dealing with pain for close to 3 months. Says that she had been taking Tylenol 3 times a day, 3 tablets. Checked acetaminophen level, this is not increased, however, concern is that she may have developed chronic Tylenol overdose leading to hepatocellular injury. Requested initiation of NAC protocol. 1: 2 proportion, but does not drink alcohol. CK is normal. Additionally we will continue to hold Cipro and Flagyl in case these are because of any liver injury. Obtain abdominal ultrasound of RUQ and perihepatic vessels. Repeat hepatitis panel. Back in Dec wtih only HBs antigen +ve. Recheck CMP. INR. Attempted to reach her mother. If condition continues to worsen, this is possible acute liver failure. Discussed with patient. Unfortunately no answer after few phone calls to her mother, my message is unreturned. Chronic transaminitis, but currently today has significant rise up to AST 546, ALT 205, alk phos slight rise up to 208. For now hold Cipro and Flagyl. Medications reviewed again. Status: Acute (2) Colitis: She is still reporting pain, but today this appears perhaps a little bit better?, She appears to be more energetic, in better spirits. Abdomen appears to be perhaps slightly less tender on palpation. Stool studies are back, negative bacterial and parasite panels, negative C. difficile. Positive lactoferrin, positive occult blood. Check ESR, CRP. BERNARD. Monitor symptoms, if symptoms worsening, spiking fever, leukocytosis, more bleeding, restart antibiotics. These for now have been discontinued due to acute liver injury. Persistent abdominal pain. Nausea, poor oral intake. Had an episode of vomiting earlier. Vomiting may also be secondary to gastroparesis. Her erythromycin was presumed, but I see she has not been getting it, appears there is a different medication on the formulary. Discussed with pharmacy. This will be changed over. With regards to colitis, today she has significant rise in transaminases, AST up as high as 540. Due to this for now we will hold Cipro and Flagyl. If we need to resume antibiotic, may have to switch over to a different agent. I am told that stool samples finally obtained today. She reports again having liquid stool today. Follow-up stool studies. She does report drinking water out of a well, although her mother is also drinking from the same source and has not been ill. May need to consider having the water tested. She denies any hematemesis or any vomiting. Thrombocytopenia was assessed by peripheral smear. No schistocytosis noted. Low suspicion for TTP/HUS. Discussed with patient. Appears to be somewhat better today, 115. Monitor blood counts or any signs of development of TTP/HUS. Colitis on CT scan, has complaints of generalized abdominal pain -Stool studies so far not collected. Collect if possible. Refer for colonoscopy after recovers. Status: Acute (3) Acute pancreatitis: Possible continued pancreatitis, although lipase had improved. Continues to have abdominal pain. Poor oral intake. Nausea. Has been tolerating diet on and off. Continue trials. Chronic pancreatitis She does not use pancreatic lipase Status: Acute Qualifiers: Acute pancreatitis complication: no infection or necrosis Pancreatitis type: unspecified pancreatitis type Qualified Code(s): K85.90 - Acute pancreatitis without necrosis or infection, unspecified (4) Upper GI bleed: Hemoglobin stabilized. 8.4. Continue PPI. No bleeding noted on EGD. Suspect this was more likely lower GI bleed with colitis. Assessment and treatment of colitis as above. Peripheral smear performed for thrombocytopenia. Thrombocytopenia transient. Now improved. Once colitis is treated, refer for additional assessment by colonoscopy. -Denies alcohol use, denies drug use, denies history of hep C, denies history of esophageal varices -Has a history of anastomotic ulcer status post gastric bypass -Last EGD on 06/21/2019 showed a 2 cm ulcer at GJ junction Status: Acute (5) Chronic post-traumatic stress disorder: Status: Chronic (6) Generalized anxiety disorder: Status: Chronic (7) Macrocytosis: Status: Acute (8) Gastroparesis: Had a gastric emptying study, that showed significant gastroparesis at 2- hour postmeal Resumed erythromycin. (This was resumed already after liver parameters january). Status: Acute (9) Macrocytosis without anemia: -Significant macrocytosis, B12, folate are okay, iron studies with likely ACD, peripheral smear requested, blood alcohol level negative Status: Acute (10) Hypokalemia: Replaced Status: Acute (11) Hypoglycemia: I see on labs there was hypoglycemia this morning. Not on insulin. Requested POC glucose assessments, hypoglycemia protocol. Status: Acute (12) Sinus tachycardia: Status: Acute Additional A&P Information Confusion: Acute delirium, encephalopathy. Somewhat better today. Possibly related to pain medications. Concern possibly related to acute hepatocellular injury. Treat underlying issues as above. Monitor condition. Supportive care. Reassurance. She is alert and oriented x3. Lower extremity edema: 2+ pitting edema noted today. Will hold additional IV fluids for now. Attestations Medical Necessity Statement*: Continue admission for assessment and management of hepatocellular injury, acute encephalopathy, colitis, acute on chronic pancreatitis. 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 [facility] [facility] Diagnoses Transaminitis R74.01 Colitis K52.9 Acute pancreatitis K85.90 Acute pancreatitis complication: no infection or necrosis Pancreatitis type: unspecified pancreatitis type Upper GI bleed K92.2 Chronic post-traumatic stress disorder F43.12 Generalized anxiety disorder F41.1 Macrocytosis D75.89 Gastroparesis K31.84 Macrocytosis without anemia D75.89 Hypokalemia E87.6 Hypoglycemia E16.2 Sinus tachycardia R00.0
[2020-02-08 12:24] LABS: Alanine Aminotransferase 216 U/L (0-33); Albumin Level 1.4 g/dL (3.5-5.2); Alkaline Phosphatase 198 IU/L (35-105); Aspartate Amino Transferase 591 U/L (0-32); Blood Urea Nitrogen 2 mg/dL (6-20); C Reactive Protein 50.5 mg/L (0.0-4.9); Calcium 7.3 mg/dL (8.5-10.5); Carbon Dioxide 16 mmol/L (22-29); Chloride 115 mmol/L (98-107); Glomerular Filtration Rate 90.1 mL/min (90-130); Glucose 58 mg/dL (65-115); INR 2.44 (0.8-1.2); Osmolality Calculated 286 mOsm/kg (285-295); Sodium 141 mmol/L (136-145); Total Bilirubin 0.8 mg/dL (0.15-1.2); Total Protein 3.4 g/dL (6.6-8.7)
[2020-02-08 12:30] LABS: Anion Gap 13.9 (5-19); Potassium 3.9 mmol/L (3.5-5.1)
[2020-02-08 12:46] LABS: Hepatitis A Antibody IgM Non-Reactive (Nonreactive); Hepatitis B Core IgM Non-Reactive (Nonreactive); Hepatitis B Surface Antigen Non-Reactive (Nonreactive); Hepatitis C Virus Antibody Non-Reactive (Nonreactive)
[2020-02-08 13:02] LABS: Erythrocyte Sedimentation Rate 11 mm/hr (0-15)
[2020-02-08] MEDS: morphine 4 mg/mL SDV 1 mL 2 MG IVP (15:30)
[2020-02-08 15:59] LABS: Glucose Point of Care 123 mg/dL (70-110)
--- NOTE | 2020-02-08 16:49 | PM.TDS ---
Transfer Summary Providers Date of Admission: 02/05/20 15:17 Date of Discharge: 02/08/20 Attending Provider at Admission: Gallito Knight MD Attending Provider at Transfer: Jr Celeste Primary Care Provider: Rosi Shell NP Anticipated Date of Transfer: Anticipated date of transfer: 02/08/20 Receiving Facility & Provider: Receiving Provider: [] Receiving facility: [] Diagnoses at Discharge Discharge Diagnosis (1) Transaminitis: Status: Acute (2) Colitis: Status: Acute (3) Acute pancreatitis: Status: Acute Qualifiers: Acute pancreatitis complication: no infection or necrosis Pancreatitis type: unspecified pancreatitis type Qualified Code(s): K85.90 - Acute pancreatitis without necrosis or infection, unspecified (4) Upper GI bleed: Status: Acute (5) Chronic post-traumatic stress disorder: Status: Chronic (6) Generalized anxiety disorder: Status: Chronic (7) Macrocytosis: Status: Acute (8) Gastroparesis: Status: Acute (9) Macrocytosis without anemia: Status: Acute (10) Hypokalemia: Status: Acute (11) Hypoglycemia: Status: Acute (12) Sinus tachycardia: Status: Acute Reason for Visit Reason for Visit: n/v blood Hospital Course Discharge Summary: Pleasant 44-year-old lady with past history of anastomotic ulcer status post gastric bypass, last EG06/21/2019 which showed 2 cm ulcer at GJ junction, posttraumatic stress disorder, general anxiety, HTN, major depressive disorder, history of chronic pancreatitis, gastroparesis on erythromycin, nephrolithiasis, was admitted with initial complaint noted as hematemesis, bright red blood and coffee-ground blood, fatigue, malaise bloody stools, document on presentation denied bloody stools, however, during the follow-up visit next morning denied hematemesis, and reported diarrhea and bloody stools. Consistently has had generalized abdominal pain. CT abdomen pelvis on presentation showed thickening of the wall of sigmoid colon, rectum, with perirectal fat stranding, possibly infectious or inflammatory colitis. Also noted mild ascites. Small pleural effusions. Incidentally reported pericardial effusion. Lipase noted low at 12. She was started on PPI on admission. Hemoglobin was monitored. Surgery was consulted. She was started also on Cipro and Flagyl for colitis. Bowel rest, IV hydration, pain and nausea medications for possible acute on chronic pancreatitis. She underwent assessment by EGD without finding of any active bleeding, gastritis or ulcer, but with noted residual food in the stomach. She was continued on antibiotics, supportive care, with plan for additional evaluation by colonoscopy after recovery from colitis. She had a fever in the afternoon after night of the admission on 02/04 up to 101.2. But subsequent fevers resolved with treatment of colitis. Her symptoms, however, were not improving significantly. She continued to have abdominal pain in the mid abdomen, without any elevation of lipase (7-10). She has been unable to tolerate more than minimal oral intake due to nausea. Of note INR was found abnormal at 1.35 on 02/02, 1.44, 1.55, 1.48 on the subsequent days. With some fatty infiltration noted on CT, AST and ALT were mildly elevated at 34, 45 respectively. Alk phos noted chronically elevated, on presentation 163, fluctuating, lowest 128 on 02/05. She does not drink any alcohol. Has history of cholecystectomy. Noted transient thrombocytopenia down to 98,000 on 02/05. Peripheral smear obtained, showing microcytic anemia, hypersegmented neutrophils. Low to normal platelet count with occasional platelet saddle is some. Normal WBC count. Neutrophils with toxic granulation and occasional reactive lymphocytes. No blasts or blast equivalents. She was not on any heparin products (only SCD for prophylaxis). On 02/06 noted rise in AST and ALT, up to 540, 118 respectively. Alkaline phosphatase up to 148. Ciprofloxacin and Flagyl were discontinued in case either was causing liver injury. She received 1 dose of Tylenol in the hospital for pain. CK was checked and was normal. She was noted to have an episode of confusion same day as well, was oriented x3, but reported thinking that somebody came to talk to her about brain surgery to be scheduled for the next day. Stool studies returned negative for C. difficile, bacterial panel negative for Shigella, Shiga toxin, complete bacteria, Salmonella, and parasite panels negative for Giardia, Entamoeba, Cryptosporidium, positive lactoferrin, positive occult blood. ESR and CRP were requested. BERNARD requested. Liver parameters were worse again this morning, AST 546, and recheck this afternoon 591, ALT 205, and with rise to 216 by the afternoon, alk phos 198. T bili remains normal. We discussed with her in case of worsening liver parameters transfer to higher level facility for additional assessment by GI or hepatology, to which she was agreeable. Acute hepatitis panel was checked and was nonreactive. Acetaminophen level was checked and was less than 5. This morning again some mild confusion, although is alert oriented. INR noted worse at 2.44. Today also hypoglycemic in the morning down to 58, with improvement. Today also noted progression to more persistent sinus tachycardia in 120s. Saturating well on room air. Has not had any respiratory complaints. Reported to me today also is that nursing staff found a bottle of Tylenol on patient. Asking her about taking Tylenol, she states that she is been taking Tylenol over the last 3 months or so when she has been dealing with chronic pain. Reports that she is been taking it 3 times a day. When asked how many pills says 3 pills 3 times a day. N-acetylcysteine infusion was initiated. I attempted to reach her mother today, but have not had a call back. Due to concern for possible acute liver failure she was kindly accepted for additional assessment and care over at [facility] in [place]. Please see full imaging and lab reports, progress notes and consultation note for additional details. Do not hesitate to call with any questions. Physical Exam Const: COMMON NORMALS: no acute distress and patient oriented x3 OTHER: Some mild confusion, going off on unclear tenderness. HENMT: COMMON NORMALS: oropharynx normal Neck/C-Spine: COMMON NORMALS: no JVD Resp: COMMON NORMALS: normal respiratory effort and clear to auscultation bilaterally AUSCULTATION: clear to auscultation bilaterally Cardio: COMMON NORMALS: no JVD, regular rhythm, S1 normal heart sound present, S2 normal heart sound present and No murmurs present (Cardio) RATE: tachycardic RHYTHM: regular rhythm HEART SOUNDS: S1 normal heart sound present and S2 normal heart sound present GI: COMMON NORMALS: Normal to inspection, nondistended, normoactive bowel sounds present, Soft to palpation and non-tender PALPATION: Yes Soft to palpation and Yes Tenderness to palpation present (GI) (mid and R abdomen) Extremity: COMMON NORMALS: no joint enlargement and no pedal edema GENERAL: Yes edema (1+ lower legs) Neuro: COMMON NORMALS: patient oriented x3 and moves all extremities Skin: COMMON NORMALS: no rashes or lesions noted GENERAL SKIN EXAM: no rashes or lesions noted TS Data Data Completed and Pending: Completed Studies During Hospitalization Category Date Time Status CT abdomen pelvis wo con [id number] Stat Cat Scan 02/03/20 20:11 Completed CXRP [XR chest 1V portable [id number]] S tat Exams 02/06/20 12:45 Completed US abdomen limite d [id number] Routine Ultrasound 02/08/20 08:22 Completed Pending at discharge Category Date Time Status BERNARD Screen w/ Ref demi Routine Lab 02/08/20 06:00 Received Complete Blood Co unt w/Auto AM LABS Lab 02/09/20 04:00 Ordered Complete Blood Co unt w/Auto AM LABS Lab 02/10/20 04:00 Ordered Comprehensive Met abolic Panel AM LA BS Lab 02/09/20 04:00 Ordered Comprehensive Met abolic Panel AM LA BS Lab 02/10/20 04:00 Ordered Helicobacter Pylo ri AG Stool Stat Lab 02/07/20 08:00 Received Prothrombin Time INR AM LABS Lab 02/09/20 04:00 Ordered CV unlisted vascu lar [id number] Routine Ultrasound 02/08/20 Taken Labs from last 24 hours 02/08/20 02/08/20 02/08/20 15:54 06:00 06:00 WBC RBC Hgb Hct MCV MCH MCHC RDW Plt Count MPV Neut % (Auto) Lymph % (Auto) Carter % (Auto) Eos % (Auto) Baso % (Auto) Neut # (Auto) Lymph # (Auto) Carter # (Auto) Eos # (Auto) Baso # (Auto) Nucleated RBC % (a uto) Nucleated RBCs # ESR 11 PT INR Sodium Potassium Chloride Carbon Dioxide Anion Gap BUN Creatinine GFR Calculation Glucose POC Glucose 123 Calculated Osmolal ity Calcium Total Bilirubin AST ALT Alkaline Phosphata se C-Reactive Protein Total Protein Albumin Globulin Lipase Acetaminophen BERNARD Screen Pending Hepatitis A IgM Ab Hep Bs Antigen Hep B Core IgM Ab Hepatitis C Antibo dy 02/08/20 02/08/20 02/08/20 06:00 06:00 06:00 WBC RBC Hgb Hct MCV MCH MCHC RDW Plt Count MPV Neut % (Auto) Lymph % (Auto) Carter % (Auto) Eos % (Auto) Baso % (Auto) Neut # (Auto) Lymph # (Auto) Carter # (Auto) Eos # (Auto) Baso # (Auto) Nucleated RBC % (a uto) Nucleated RBCs # ESR PT 27.40 H INR 2.44 H Sodium 141 Potassium 3.9 Chloride 115 H Carbon Dioxide 16 L Anion Gap 13.9 BUN 2 L Creatinine 0.7 GFR Calculation 90.1 Glucose 58 L POC Glucose Calculated Osmolal ity 286 Calcium 7.3 L Total Bilirubin 0.8 AST 591 H ALT 216 H Alkaline Phosphata se 198 H C-Reactive Protein 50.5 H Total Protein 3.4 L Albumin 1.4 L Globulin 2.0 Lipase Acetaminophen BERNARD Screen Hepatitis A IgM Ab Non-reactive Hep Bs Antigen Non-reactive Hep B Core IgM Ab Non-reactive Hepatitis C Antibo dy Non-reactive 02/08/20 02/08/20 02/08/20 06:00 06:00 06:00 WBC RBC Hgb Hct MCV MCH MCHC RDW Plt Count MPV Neut % (Auto) Lymph % (Auto) Carter % (Auto) Eos % (Auto) Baso % (Auto) Neut # (Auto) Lymph # (Auto) Carter # (Auto) Eos # (Auto) Baso # (Auto) Nucleated RBC % (a uto) Nucleated RBCs # ESR PT INR Sodium 144 Potassium 3.9 Chloride 117 H Carbon Dioxide 18 L Anion Gap 12.9 BUN 2 L Creatinine 0.8 GFR Calculation 77.2 L Glucose 62 L POC Glucose Calculated Osmolal ity 292 Calcium 7.4 L Total Bilirubin 0.9 AST 546 H ALT 205 H Alkaline Phosphata se 208 H C-Reactive Protein Total Protein 3.3 L Albumin 1.5 L Globulin 1.8 Lipase 10 L Acetaminophen < 5.0 L BERNARD Screen Hepatitis A IgM Ab Hep Bs Antigen Hep B Core IgM Ab Hepatitis C Antibo dy 02/08/20 02/08/20 06:00 06:00 WBC 4.6 RBC 2.23 L Hgb 8.5 L Hct 26.6 L MCV 119.3 H MCH 38.1 H MCHC 32.0 RDW 17.2 H Plt Count 132 MPV 9.4 Neut % (Auto) 80.4 Lymph % (Auto) 13.3 Carter % (Auto) 4.8 Eos % (Auto) 0.4 Baso % (Auto) 0.4 Neut # (Auto) 3.69 Lymph # (Auto) 0.6 L Carter # (Auto) 0.2 Eos # (Auto) 0.0 Baso # (Auto) 0.0 Nucleated RBC % (a uto) 0 Nucleated RBCs # 0.0 ESR PT 27.10 H INR 2.41 H Sodium Potassium Chloride Carbon Dioxide Anion Gap BUN Creatinine GFR Calculation Glucose POC Glucose Calculated Osmolal ity Calcium Total Bilirubin AST ALT Alkaline Phosphata se C-Reactive Protein Total Protein Albumin Globulin Lipase Acetaminophen BERNARD Screen Hepatitis A IgM Ab Hep Bs Antigen Hep B Core IgM Ab Hepatitis C Antibo dy Vitals: Last Vital Signs Temp 98.6 F 02/08/20 15:49 Pulse 128 H 02/08/20 15:49 Resp 18 02/08/20 15:49 BP 96/66 02/08/20 15:49 Pulse Ox 95 02/08/20 15:49 TS Medications Medications Home Medications sucralfate 1 g PO TID 06/21/19 [History Confirmed 02/03/20] acetaminophen [Tylenol Extra Strength] 500 - 1,000 mg PO Q6H PRN 07/10/19 [History Confirmed 02/03/20] metoprolol tartrate 25 mg PO BID 09/05/19 [History Confirmed 02/03/20] multivitamin [Multiple Vitamins] 1 tab PO DAILY 09/05/19 [History Confirmed 02/03/20] tramadol [Ultram] 50 mg PO Q8H PRN #14 tab 12/18/19 [Rx Confirmed 02/03/20] dexlansoprazole 60 mg capsule,biphase delayed release 60 mg PO BID #60 cap 12/24/19 [Rx Confirmed 02/03/20] dexlansoprazole 60 mg PO DAILY 56 Days cap 12/30/19 [Rx Confirmed 02/03/20] dicyclomine 20 mg PO QID PRN 12/30/19 [History Confirmed 02/03/20] potassium chloride 10 meq PO BID #30 cap 12/30/19 [Rx Confirmed 02/03/20] citalopram 20 mg tablet 20 mg PO QAM #90 tab 12/31/19 [Rx Confirmed 02/03/20] lorazepam 1 mg tablet 1 mg PO TID PRN #90 tab 12/31/19 [Rx Confirmed 02/03/20] trazodone 150 mg tablet 150 mg PO BEDTIME PRN #90 tab 12/31/19 [Rx Confirmed 02/03/20] erythromycin 250 mg tablet 250 mg PO BID #60 tab 01/28/20 [Rx Confirmed 02/03/20] promethazine See Rx Instructions .ROUTE .COMPLEX 02/03/20 [History Confirmed 02/03/20] Active Medications Dextrose (D50w) 25 ml IVP ONCE PRN; Protocol PRN Reason: hypoglycemia protocol Dextrose (D50w) 50 ml IVP PRN PRN; Protocol PRN Reason: hypoglycemia protocol Erythromycin (Erythromycin) 250 mg PO BID [facility] Last Admin: 02/08/20 10:35 Dose: 250 mg Documented by: Glucagon (Glucagen) 1 mg IM ONCE PRN; Protocol PRN Reason: Adult Acute Hypoglycemia Prot. Ciprofloxacin/Dextrose (Cipro) 400 mg in 200 mls @ 200 mls/hr IV Q12H [facility]; Protocol Last Admin: 02/07/20 00:18 Dose: 200 mls/hr Documented by: Sodium Chloride (Sodium Chloride 0.9%) 1,000 mls @ 100 mls/hr IV .Q10H [facility] Last Admin: 02/07/20 07:50 Dose: 100 mls/hr Documented by: Metronidazole (Flagyl Iv) 500 mg in 100 mls @ 100 mls/hr IV Q8H [facility]; Protocol Last Admin: 02/07/20 04:34 Dose: 100 mls/hr Documented by: Acetylcysteine 6,300 mg/ (Dextrose) 1,031.5 mls @ 64.4 mls/hr IV ONCE ONE Stop: 02/09/20 06:31 Last Admin: 02/08/20 15:30 Dose: 64.4 mls/hr Documented by: Dextrose (D5w) 500 mls @ 100 mls/hr IV ONCE PRN; Protocol PRN Reason: Adult Acute Hypoglycemia Prot Morphine Sulfate (Morphine) 2 mg IVP Q4H PRN PRN Reason: SEVERE PAIN Last Admin: 02/08/20 15:30 Dose: 2 mg Documented by: Naloxone HCl (Narcan) 0.1 mg IVP Q2M PRN PRN Reason: OPIATERV Pantoprazole Sodium (Protonix) 40 mg IVP Q12H [facility] Last Admin: 02/08/20 11:57 Dose: 40 mg Documented by: Scopolamine (Transderm-Scop) 1 patch TRANSDERMA ONCE PRN PRN Reason: Nausea/ Vomiting Prophylaxis Sodium Chloride (Sodium Chloride 0.9 % (Flush)) 2 ml IV PIID [facility] Last Admin: 02/08/20 15:29 Dose: 2 ml Documented by: Sucralfate (Carafate) 1 gm PO TID [facility] Last Admin: 02/08/20 15:30 Dose: 1 gm Documented by: Trazodone HCl (Desyrel) 150 mg PO BEDTIME PRN PRN Reason: sleep Last Admin: 02/07/20 20:58 Dose: 150 mg Documented by: Discharge Plan Discharge Patient Disposition: Xfer Short-Term Hosp Condition: Stable Prescriptions: No Action erythromycin 250 mg tablet 250 mg PO BID Qty: 60 RF: 3 trazodone 150 mg tablet 150 mg PO BEDTIME PRN (Reason: sleep) Qty: 90 RF: 2 lorazepam [Ativan] 1 mg tablet 1 mg PO TID PRN (Reason: anxiety) Qty: 90 RF: 1 citalopram [Celexa] 20 mg tablet 20 mg PO QAM Qty: 90 RF: 2 Dexilant 60 mg capsule,biphase delayed releas 60 mg PO BID Qty: 60 RF: 5 sucralfate 1 gram Tablet 1 g PO TID RF: 0 acetaminophen [Tylenol Extra Strength] 500 mg Tablet 500 - 1,000 mg PO Q6H PRN (Reason: Pain) RF: 0 promethazine 25 mg tablet See Rx Instructions .ROUTE .COMPLEX RF: 0 multivitamin [Multiple Vitamins] Tablet 1 tab PO DAILY RF: 0 metoprolol tartrate 25 mg Tablet 25 mg PO BID RF: 0 tramadol [Ultram] 50 mg Tablet 50 mg PO Q8H PRN (Reason: Pain) Qty: 14 RF: 0 dicyclomine 20 mg tablet 20 mg PO QID PRN (Reason: stomach pain) RF: 0 potassium chloride 10 mEq capsule, extended release 10 meq PO BID Qty: 30 RF: 0 dexlansoprazole 60 mg capsule,biphase delayed releas 60 mg PO DAILY 56 Days RF: 0 Referrals: Derrick Mckeon MD [Physician] - (Colonoscopy) Rosi Shell NP [Primary Care Provider] - Transfer Attestations Time Spent in Transfer Care*: greater than 30 min Status at Transfer: Cognitive status at transfer: cognitively intact, Behavioral status at transfer: cooperative, Quality Metrics Clinical Quality Measures: During this hospital stay, did patient experience: None 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 [facility] Fwd Diagnoses Transaminitis R74.01 Colitis K52.9 Acute pancreatitis K85.90 Acute pancreatitis complication: no infection or necrosis Pancreatitis type: unspecified pancreatitis type Upper GI bleed K92.2 Chronic post-traumatic stress disorder F43.12 Generalized anxiety disorder F41.1 Macrocytosis D75.89 Gastroparesis K31.84 Macrocytosis without anemia D75.89 Hypokalemia E87.6 Hypoglycemia E16.2 Sinus tachycardia R00.0
[2020-02-10 13:59] LABS: Anti-Nuclear Antibody Screen NEGATIVE (NEGATIVE)
== END 2020-02-08 19:25 | disposition short-term general hospital (02) | DRG 377 ==
LOC: ER 02-04 08:31 → MEDSURG 02-04 11:19
PROVIDERS: Emergency Medicine; Surgery; Admitting Provider Family Medicine; PCP Nurse Practitioner Family; Visit Provider Internal Medicine
PROC: 0DJ08ZZ Inspection of Upper Intestinal Tract, Via Natural or Artificial Opening Endoscopic (ICD-10-PCS; CPT 43235; principal; 2020-02-05 08:00)
DX: K92.2 Gastrointestinal hemorrhage, unspecified (principal); K85.90 Acute pancreatitis without necrosis or infection, unspecified; K72.00 Acute and subacute hepatic failure without coma; F33.9 Major depressive disorder, recurrent, unspecified; K86.1 Other chronic pancreatitis; G93.40 Encephalopathy, unspecified; J90 Pleural effusion, not elsewhere classified; R18.8 Other ascites; Z98.84 Bariatric surgery status; F43.12 Post-traumatic stress disorder, chronic; F41.1 Generalized anxiety disorder; I10 Essential (primary) hypertension; Z87.891 Personal history of nicotine dependence; K52.9 Noninfective gastroenteritis and colitis, unspecified; D75.89 Other specified diseases of blood and blood-forming organs; K31.84 Gastroparesis; K44.9 Diaphragmatic hernia without obstruction or gangrene; E87.6 Hypokalemia; D64.9 Anemia, unspecified; D69.6 Thrombocytopenia, unspecified; E16.2 Hypoglycemia, unspecified; R00.0 Tachycardia, unspecified; K76.0 Fatty (change of) liver, not elsewhere classified; Z87.442 Personal history of urinary calculi
CPT/HCPCS: 12345; 36415; 36416; 36569; 43235; 71045; 74176; 76705; 80053; 80074; 80307; 80500; 81001; 82274; 82550; 82607; 82728; 82746; 82962; 83540; 83550; 83630; 83690; 83735; 84100; 84145; 84484; 84703; 85025; 85045; 85610; 85651; 86038; 86140; 86850; 86900; 86920; 87338; 87493; 87506; 93005; 93998; 96375; 97161; 99284; C9113; G0378; J0132; J0744; J1170; J1200; J2270; J2704; J3475; J3480; J7030; Q9967; S0030

== ENCOUNTER 2020-02-26 16:40 | Inpatient (IN) | payer MEDICAID, SELFPAY ==
[2020-02-26] VITALS (7 sets, daily range): BP systolic 68–97; BP diastolic 48–66; PULSE 56–124; RESP 16–28; TEMP 36.7; O2SAT 86–97; BMI 27.4
--- NOTE | 2020-02-26 17:26 | XRR_ITS ---
PROCEDURE INFORMATION: Exam: XR Chest, 1 View Exam date and time: 02/26/2020 5:37 PM Age: 44 years old Clinical indication: Shortness of breath; Additional info: SOB TECHNIQUE: Imaging protocol: XR of the chest Views: 1 view. COMPARISON: CR XR chest 1V portable [id number] 02/06/2020 12:52 PM FINDINGS: Lungs: Bilateral extensive pulmonary consolidations. Diminutive pulmonary volumes. Pleural space: No pneumothorax. Heart/Mediastinum: Similar heart size. Bones/joints: Unremarkable. Intraperitoneal space: Surgical clips upper abdomen. Other findings: No large volume effusion. XR/XR chest 1V portable [id number] IMPRESSION: 1. Development of extensive bilateral pulmonary consolidations with greatest involvement on the left. 2. Diminutive inspiratory volume.
[2020-02-26 18:19] LABS: ABG PCO2 35.3 mmHg (35-45); ABG PH Result 7.39 (7.35-7.45); Arterial Blood Gas Hematocrit 28.2 % (37-47); Base Excess ABG -3.4 mmol/L (-2.0-2.0); Blood Gas Allen Test Pos; Blood Gas Operator Identificat CAK; Blood Gas Sample Site Radial, left; Blood Gas Sample Type Arterial; Carboxyhemoglobin 1.4 %THgb (0.4-20.1); HCO3 ABG 21.2 mmol/L (22-26); HGB O2 Sat 84.4 % (95-100); Methemoglobin 0.7 % (0.4-1.5); Oxygen Device NC; PO2 ABG 52.5 mmHg (80.0-100.0); Total Hemoglobin 9.2 g/dL (12-16)
[2020-02-26 18:21] LABS: INR 1.44 (0.8-1.2)
[2020-02-26 18:24] LABS: D Dimer 2.33 ug/mIFEU (0-0.59)
[2020-02-26 18:25] LABS: Alanine Aminotransferase 106 U/L (0-33); Albumin Level 1.5 g/dL (3.5-5.2); Alkaline Phosphatase 213 IU/L (35-105); Aspartate Amino Transferase 131 U/L (0-32); Blood Urea Nitrogen 10 mg/dL (6-20); Calcium 7.4 mg/dL (8.5-10.5); Carbon Dioxide 20 mmol/L (22-29); Chloride 113 mmol/L (98-107); Creatinine Clr Calc Pharmacy 49.0259; Glomerular Filtration Rate 40.5 mL/min (90-130); Glucose 42 mg/dL (65-115); Lipase 6 U/L (13-60); Osmolality Calculated 292 mOsm/kg (285-295); Sodium 143 mmol/L (136-145); Total Bilirubin 1.6 mg/dL (0.15-1.2); Total Protein 3.5 g/dL (6.6-8.7)
[2020-02-26 18:29] LABS: Influenza A by IFA Negative (Negative); Influenza B by IFA Negative (Negative)
[2020-02-26 18:36] LABS: Anion Gap 14.2 (5-19); Potassium 4.2 mmol/L (3.5-5.1)
[2020-02-26 18:37] LABS: Lactic Sepsis W/Reflex 4.1 mmol/L (0.5-2.2)
[2020-02-26 19:24] LABS: SARS Covid-2 Antigen Positive (Negative)
[2020-02-26] MEDS: piperacillin-tazobactam 3.375 GM in sodium chloride 0.9% (plus) 50 ML IV (19:42)
[2020-02-26] MEDS: sodium chloride 0.9% 1,000 ML 999 ML IV (19:43)
[2020-02-26 19:52] LABS: Reflex Lactate Order REFLEX LACTIC ORDERD
--- NOTE | 2020-02-26 20:57 | XRR_ITS ---
PROCEDURE INFORMATION: Exam: XR Chest, 1 View Exam date and time: 02/26/2020 9:07 PM Age: 44 years old Clinical indication: Device placement; Picc; Additional info: Central line placement TECHNIQUE: Imaging protocol: XR of the chest Views: 1 view. COMPARISON: CR XR chest 1V portable [id number] 02/26/2020 5:41 PM FINDINGS: Patient is rotated and lung volumes are low, limiting assessment. Tip of right central venous catheter projects over IVC at level of liver. No convincing pneumothorax is demonstrated. There is prominent ill-defined opacification in each lung, may represent infiltrates, edema/congestion, or a combination thereof. Overall the findings appear increased from prior study. No significant obscuration of the lateral costophrenic angles is demonstrated. There is scattered pulmonary scarring bilaterally. Visualized cardiac silhouette size appears within normal limits. XR/XR chest 1V portable [id number] IMPRESSION: Tip of right central venous catheter projects over IVC at level of liver. There is prominent ill-defined opacification in each lung, may represent infiltrates, edema/congestion, or a combination thereof. Overall the findings appear increased from prior study.
[2020-02-26 21:11] LABS: Basophils % 0.3 %; Hematocrit 29.1 % (37.0-47.0); Lymphocytes # 0.9 10^3/uL (0.8-4.8); Lymphocytes % 9.9 %; Mean Corpuscular HGB Conc 30.9 g/dL (30.0-36.0); Mean Corpuscular Hemoglobin 36.3 pg (28.0-34.0); Mean Corpuscular Volume 117.3 fL (81-99); Monocytes # 0.2 10^3/uL (0.2-0.9); Monocytes % 2.4 %; Neutrophils # 7.96 10^3/uL (1.8-7.7); Neutrophils % 86.7 %; Nucleated Red Blood Cells % 0 %; Platelet Count 37 10^3/cmm (130-400); Red Blood Count 2.48 10^6/uL (4.1-5.3); Red Cell Distribution Width 14.5 % (12.1-15.1); White Blood Count 9.2 10^3/uL (4.0-10.0)
[2020-02-26] MEDS: haloperidol inj 5 mg/mL INJ 1 mL IM (21:13)
[2020-02-26 21:46] LABS: Lactic Acid level (Lactate) 3.4 mmol/L (0.5-2.2)
--- NOTE | 2020-02-26 22:03 | XRR_ITS ---
XR/XR chest 1V portable [id number] PROCEDURE INFORMATION: Exam: XR Chest, 1 View Exam date and time: 02/26/2020 10:09 PM Age: 44 years old Clinical indication: Device placement; Picc; Additional info: Central line TECHNIQUE: Imaging protocol: XR of the chest Views: 1 view. COMPARISON: CR XR chest 1V portable [id number] 02/26/2020 9:01 PM Findings/impression: Patient is rotated and lung volumes are low, limiting assessment. Tip of right central venous catheter now projects over right atrium. Remainder of study demonstrates no significant change.
--- NOTE | 2020-02-26 22:23 | CTR_ITS ---
PROCEDURE INFORMATION: Exam: CT Chest Without Contrast; Diagnostic Exam date and time: 02/26/2020 1:30 AM Age: 44 years old Clinical indication: Abdominal pain; Generalized; Chest pain; Additional info: SOB, covid+, abdominal pain, chronic pancreatitis TECHNIQUE: Imaging protocol: Diagnostic computed tomography of the chest without contrast. Radiation optimization: All CT scans at this facility use at least one of these dose optimization techniques: automated exposure control; mA and/or kV adjustment per patient size (includes targeted exams where dose is matched to clinical indication); or iterative reconstruction. COMPARISON: CT abdomen pelvis w con* [id number] 02/03/2020 9:11 PM RADIATION DOSE METRICS: Total DLP (mGy-cm): 2335.43 FINDINGS: Tubes, catheters and devices: Internal jugular central vascular catheter tip position at the right atrium. Small amount of soft tissue gas at the lower right cervical soft tissues near the internal jugular vascular catheter skin entrance site. Lungs: Diffuse bilateral dense confluent consolidations. Numerous air bronchograms . Pleural space: Free layering of bilateral pleural effusions slightly larger on the right maximum diameter measuring 3.1 cm and maximum diameter on the left 2.9 cm. Heart: Small pericardial effusion maximum diameter 0.78 cm. Aorta: Unremarkable. No aortic aneurysm. Lymph nodes: Unremarkable. No enlarged lymph nodes. Bones/joints: Degenerative change of the spine. Soft tissues: Collections of intramuscular soft tissue gas within the biceps muscle of the right upper extremity with small amount of adjacent fluid at the level of the distal biceps muscle. Other findings: Motion degradation. IMPRESSION: 1. Dense confluent consolidations throughout parenchyma of the lungs and near entirety of involvement. 2. Free layering bilateral pleural effusions. 3. Small pericardial effusion. 4. Collection of subcutaneous soft tissue gas near the right internal jugular catheter entrance site and additional elongated collection of gas within and along the margin of right biceps musculature of the right upper extremity. Small adjacent fluid collection of the distal biceps muscle margin. 5. Central vascular catheter tip position right atrium. PROCEDURE INFORMATION: Exam: CT Abdomen And Pelvis Without Contrast Exam date and time: 02/26/2020 1:30 AM Age: 44 years old Clinical indication: Abdominal pain; Generalized; Chest pain; Additional info: SOB, covid+, abdominal pain, chronic pancreatitis TECHNIQUE: Imaging protocol: Computed tomography of the abdomen and pelvis without contrast. Radiation optimization: All CT scans at this facility use at least one of these dose optimization techniques: automated exposure control; mA and/or kV adjustment per patient size (includes targeted exams where dose is matched to clinical indication); or iterative reconstruction. COMPARISON: CT abdomen pelvis w con* [id number] 02/03/2020 9:11 PM RADIATION DOSE METRICS: Total DLP (mGy-cm): 2335.43 FINDINGS: Liver: Diffuse fatty infiltration of the liver. Mild hepatomegaly longitudinal diameter 19.4 cm. Gallbladder and bile ducts: Postoperative cholecystectomy. Pancreas: Normal. No ductal dilation. Spleen: Normal. No splenomegaly. Adrenal glands: Normal. No mass. Kidneys and ureters: Normal. No hydronephrosis. Stomach and bowel: Postsurgical changes in the right abdomen with surgical clips posterior to the area of the cecum and numerous surgical clips in the upper abdomen adjacent to the GE junction and stomach. Accentuation of the wall of the stomach which could be on the basis of nondistention. There is suggestion of wall thickening of the left colon and prominent segment of the right colon and persistent wall thickening of sigmoid colon.. [place] of several small bowel segments central abdomen partially fluid-filled and a component of wall thickening may be present. Appendix: The appendix is not visualized. Intraperitoneal space: Small volume abdominal ascites with collection of fluid adjacent to the spleen, lower liver and within the pelvis. There is a rather diffuse process of central abdominal mesenteric congestion or edema. Vasculature: Unremarkable. No abdominal aortic aneurysm. Lymph nodes: Unremarkable. No enlarged lymph nodes. Urinary bladder: Unremarkable as visualized. Reproductive: Postoperative hysterectomy. Bones/joints: Degenerative change of the spine. Soft tissues: Anasarca. Other findings: Limitation by the absence of contrast media, motion and streak artifact secondary to upper extremity positioning. CT/CT chest abd pel wo con IMPRESSION: 1. Progression of anasarca. Mild increased small volume abdominal ascites. 2. Wall thickening of prominent segments of near the entirety of the right colon and left colon suggestive of nonspecific colitis. 3. [place] of small bowel partially containing fluid and gas with a few segments suggesting mucosal edema or wall thickening which may indicate a non-specific enteritis and ileus without obstructive dilatation. Radiation Dose CTDIVOL = (mGy): DLP = 2335.43~2335.43 (mGy-cm)
--- NOTE | 2020-02-26 22:57 | PC.NURSE ---
Patient bllod glucose is 20, nurse and doctor were notified
[2020-02-26 22:58] LABS: Glucose Point of Care 20 mg/dL (70-110)
[2020-02-26] MEDS: dextrose 50% syringe 50 mL 25 ML IVP (23:05)
[2020-02-26 23:08] LABS: Glucose Point of Care 60 mg/dL (70-110)
--- NOTE | 2020-02-26 23:08 | PC.NURSE ---
Patient blood glucose is 60, nurse and doctor were notified
[2020-02-26] MEDS: dextrose 10% 1,000 ML 100 ML IV (23:20)
[2020-02-26 23:46] LABS: Glucose Point of Care 114 mg/dL (70-110)
[2020-02-27] VITALS (79 sets, daily range): BP systolic 82–117; BP diastolic 53–82; PULSE 75–100; RESP 13–38; TEMP 36.2–36.7; O2SAT 82–100
[2020-02-27] MEDS: LORazepam 2 mg/mL INJ 1 mL 1 MG IVP (00:04)
[2020-02-27] MEDS: dexamethasone 4 mg/mL INJ 6 MG IVP (00:18)
[2020-02-27] MEDS: sodium chloride 0.9% 1,000 ML 999 ML IV ×2 (00:19→05:00)
--- NOTE | 2020-02-27 00:56 | PC.NURSE ---
pt line wasn't flushing well. central line place. meds started. pt blood glucose 20 pt received d50 bg 60. pt restless, low o2 stats so switched from nasal to bipap. [facility].
[2020-02-27 01:11] LABS: Glucose Point of Care 128 mg/dL (70-110)
--- NOTE | 2020-02-27 01:11 | PC.NURSE ---
pt bg 128
--- NOTE | 2020-02-27 01:31 | ED_ITS ---
HPI - SOB/Dyspnea General: Chief Complaint: Shortness of Breath/Dyspnea Stated Complaint: RESPIRATORY DISTRESS Time Seen by Provider: 02/26/20 17:11 Source: patient and EMS Mode of arrival: EMS Limitations: altered mental status History of Present Illness: HPI Narrative: Patient is a 44-year-old female with a history of chronic pancreatitis, hypertension, depression, gastroparesis who was brought in by EMS with complaints of shortness of breath. She states that she was recently diagnosed with pneumonia but has been progressively worsening. When EMS got to her place of living she was noted to be cyanotic on her oxygen saturations were really low so she was put on a nonrebreather at 15 L/min and brought to the emergency department for evaluation. She says that she has been running fever MD elicited complaint: shortness of breath and cough Pertinent past history: pneumonia Context: recent illness Timing: constant and progressively worsening Severity: severe Exacerbating factors: nothing Relieving factors: oxygen Associated symptoms: Reports chest congestion, cough, fever(s) and myalgias; Deny abdominal pain, chest pain, diaphoresis, dizziness, extremity pain, hemoptysis, lightheadedness, nausea, orthopnea, palpitations, paresthesias, polydipsia, polyuria, rash, sense of impending doom, syncope or vomiting Treatment prior to arrival: oxygen Review of Systems General: Reports: 10 or more systems reviewed and unremarkable except in HPI and below Const: Reports: fever(s); Denies: diaphoresis Eyes: Denies: change in vision or blurry vision ENMT: Denies: throat pain, enlarged tonsils, odynophagia, hoarseness, mouth pain or swelling of lips/tongue Card: Denies: chest pain, palpitations, lightheadedness, syncope or orthopnea Resp: Reports: chest congestion; Denies: hemoptysis GI: Denies: abdominal pain, nausea or vomiting : Denies: flank pain, difficulty voiding, dysuria, urinary frequency, urinary urgency or urinary hesitancy Musc: Denies: extremity pain Skin/Breast: Denies: rash, pruritus or erythema Neuro: Denies: dizziness Endo: Denies: polyuria [facility] PFSH: Medical History (Updated 02/27/20 @ 01:47 by Matthew Lemus MD, [facility] [place]) Acute pancreatitis Anastomotic ulcer S/P gastric bypass Chronic post-traumatic stress disorder Gastroparesis Generalized anxiety disorder Hypertension Major depressive disorder, recurrent severe without psychotic features Vomiting blood Surgical History H/O esophagogastroduodenoscopy (~06/2019) H/O: hysterectomy History of partial gastrectomy Hx of cholecystectomy S/P appendectomy Family History Mother CAD (coronary artery disease) Other Hypertension Denies family history of Anesthesia complication Bleeding disorder Social History Smoking and tobacco status: former smoker Alcohol intake: never Adopted: No Caregiver/support person: Yes Lives independently: Yes Household members: family and children Housing: House Marital status: service: No Current occupational status: employed Current occupational exposures/hazards: No Pets and animals: No History of recent travel: No Sexually active: No Current gender identity: Female Teresa/Anabaptist: Mosque Special teresa needs: No Agree to transfusion: No Financial difficulty paying for basics: Decline to Answer Physical Exam Const: COMMON NORMALS: no acute distress, average body habitus, patient oriented x3, no limitations, healthy appearing, alert and well nourished HENMT: COMMON NORMALS: normocephalic, atraumatic and moist oral mucous membranes HEAD & SCALP: normocephalic and atraumatic Neck/C-Spine: COMMON NORMALS: full ROM, supple, no meningeal signs, no JVD and No carotid bruits Resp: COMMON NORMALS: normal respiratory effort, No retractions, No use of accessory muscles and percussion normal AUSCULTATION: rales bilateral and diminished lung sounds PERCUSSION: percussion normal Cardio: COMMON NORMALS: no JVD, regular rate, regular rhythm, S1 normal heart sound present, S2 normal heart sound present, No gallops present (Cardio), No clicks present (Cardio), No murmurs present (Cardio), No rub (Cardio) and Peripheral pulses 2+ throughout RATE: regular rate and tachycardic RHYTHM: regular rhythm HEART SOUNDS: S1 normal heart sound present and S2 normal heart sound present PERIPHERAL PULSES: Peripheral pulses 2+ throughout GI: COMMON NORMALS: Normal to inspection, nondistended, normoactive bowel sounds present, Soft to palpation, non-tender, No hepatosplenomegaly present, no masses and no bruits PALPATION: Yes Soft to palpation and Yes No hepatosplenomegaly present Extremity: COMMON NORMALS: normal to inspection, full ROM, capillary refill normal, no calf tenderness and no pedal edema Neuro: COMMON NORMALS: patient oriented x3 SENSORIUM/ORIENTATION: Yes alert MENINGEAL SIGNS: Yes no meningeal signs Skin: COMMON NORMALS: no rashes or lesions noted, no wounds, turgor normal, no jaundice, no petechiae and no mottling GENERAL SKIN EXAM: no rashes or lesions noted and turgor normal Procedures Central Line Placement Right IJ: Time Out Performed: Yes Patient Placed on Monitor/Pulse Ox: Yes MD Prep: mask and gloves Central Line Prep: Chlorhexidine scrub Local Anesthetic: lidocaine 1% Amount of anesthesia used (mL): 2 Ultrasound Used for Placement: Yes Central Line Lumen Inserted: triple Post Procedure: sutured in place, good blood return, all ports aspirated, flushed, capped and sterile dressing applied Post Procedure X-Ray: other (Tip of the catheter appears to be in the IVC) Patient Tolerated Procedure: well Complications: catheter malposition Additional Comments: Catheter tip was placed in the IVC and was pulled back about 8 cm, repeat x-ray after these showed he was in the right atrium Course ED course: 44-year-old female patient who came into the emergency department in acute respiratory failure secondary to pneumonia caused by COVID-19. She was significantly hypoxic and needed high flow oxygen and subsequently BiPAP. She was also hypotensive and tachycardic. She was therefore septic. A central line was placed and she was started on pressors. She was also given remdesivir, dexamethasone, Zosyn. She was then admitted to the viral ICU for further evaluation and management Consultations: Consultation #1: Discussed the patient with Dr. Ruiz, hospitalist and she kindly accepted patient to her service. Vital Signs: Vital signs: Vital Signs Temperature 98.1 F 02/26/20 16:43 Pulse Rate 92 02/27/20 01:19 Respiratory Rate 31 H 02/27/20 01:19 Blood Pressure 103/53 02/27/20 01:19 Pulse Oximetry 92 02/27/20 01:19 MDM - SOB/Dyspnea MDM Narrative: Medical decision making narrative: 44-year-old female patient with acute respiratory failure, septic shock, Covid pneumonia who is admitted to the viral ICU for further management. We were unable to obtain a peripheral IV access and so a right IJ central line was placed, and the catheter tip was in the IVC and it was withdrawn following which it was placed located in the right atrium Medical Records: Attestation: I reviewed the patient's medical records. Lab Data: Attestation: I reviewed the patient's lab results. Labs: Lab Results 02/26/20 02/26/20 02/26/20 Range/Units 17:47 17:47 17:58 WBC (4.0-10.0) 10^3/ uL RBC (4.1-5.3) 10^6/u L Hgb (11.5-15.3) g/dL Hct (37.0-47.0) % MCV (81-99) fL MCH (28.0-34.0) pg MCHC (30.0-36.0) g/dL RDW (12.1-15.1) % Plt Count (130-400) 10^3/c mm MPV (7.4-10.4) fL Neut % (Auto) % Lymph % (Auto) % [place] % (Auto) % Eos % (Auto) % Baso % (Auto) % Neut # (Auto) (1.8-7.7) 10^3/u L Lymph # (Auto) (0.8-4.8) 10^3/u L [place] # (Auto) (0.2-0.9) 10^3/u L Eos # (Auto) (0.0-0.8) 10^3/u L Baso # (Auto) (0.0-0.1) 10^3/u L Nucleated RBC % (a uto) % Nucleated RBCs # /100WBC PT 18.00 H (12.1-14.9) SECO NDS INR 1.44 H (0.8-1.2) D-Dimer 2.33 H (0-0.59) ug/mIFE U Specimen Type Sample Site ABG pH (7.35-7.45) ABG pCO2 (35-45) mmHg ABG pO2 (80.0-100.0) mmH g ABG HCO3 (22-26) mmol/L ABG Base Excess (-2.0-2.0) mmol/ L Caleb Test Hematocrit (37-47) % Hgb O2 Saturation (95-100) % Carboxyhemoglobin (0.4-20.1) %THgb Methemoglobin (0.4-1.5) % Total Hemoglobin (12-16) g/dL O2 Delivery Device O2 Liters/Min % FiO2 % A And P Technician ID Sodium (136-145) mmol/L Potassium (3.5-5.1) mmol/L Chloride (98-107) mmol/L Carbon Dioxide (22-29) mmol/L Anion Gap (5-19) BUN (6-20) mg/dL Creatinine (0.5-0.9) mg/dL GFR Calculation (90-130) mL/min Glucose (65-115) mg/dL POC Glucose (70-110) mg/dL Calculated Osmolal ity (285-295) mOsm/k g Lactic Acid (0.5-2.2) mmol/L Lactic Acid (Sepsi s) (0.5-2.2) mmol/L Calcium (8.5-10.5) mg/dL Total Bilirubin (0.15-1.2) mg/dL AST (0-32) U/L ALT (0-33) U/L Alkaline Phosphata se (35-105) IU/L Total Protein (6.6-8.7) g/dL Albumin (3.5-5.2) g/dL Globulin (1.3-4.6) g/dL Lipase (13-60) U/L Influenza Type A A g Negative (Negative) Influenza Type B A g Negative (Negative) SARS-CoV-2 Ag (Rap id) Cancelled 02/26/20 02/26/20 02/26/20 Range/Units 17:58 17:58 18:08 WBC (4.0-10.0) 10^3/ uL RBC (4.1-5.3) 10^6/u L Hgb (11.5-15.3) g/dL Hct (37.0-47.0) % MCV (81-99) fL MCH (28.0-34.0) pg MCHC (30.0-36.0) g/dL RDW (12.1-15.1) % Plt Count (130-400) 10^3/c mm MPV (7.4-10.4) fL Neut % (Auto) % Lymph % (Auto) % [place] % (Auto) % Eos % (Auto) % Baso % (Auto) % Neut # (Auto) (1.8-7.7) 10^3/u L Lymph # (Auto) (0.8-4.8) 10^3/u L [place] # (Auto) (0.2-0.9) 10^3/u L Eos # (Auto) (0.0-0.8) 10^3/u L Baso # (Auto) (0.0-0.1) 10^3/u L Nucleated RBC % (a uto) % Nucleated RBCs # /100WBC PT (12.1-14.9) SECO NDS INR (0.8-1.2) D-Dimer (0-0.59) ug/mIFE U Specimen Type Arterial Sample Site Radial, left ABG pH 7.39 (7.35-7.45) ABG pCO2 35.3 (35-45) mmHg ABG pO2 52.5 L (80.0-100.0) mmH g ABG HCO3 21.2 L (22-26) mmol/L ABG Base Excess -3.4 L (-2.0-2.0) mmol/ L Caleb Test Pos Hematocrit 28.2 L (37-47) % Hgb O2 Saturation 84.4 L (95-100) % Carboxyhemoglobin 1.4 (0.4-20.1) %THgb Methemoglobin 0.7 (0.4-1.5) % Total Hemoglobin 9.2 L (12-16) g/dL O2 Delivery Device Nc O2 Liters/Min 30.0 % FiO2 60.0 % A And P Technician ID Cak Sodium 143 (136-145) mmol/L Potassium 4.2 (3.5-5.1) mmol/L Chloride 113 H (98-107) mmol/L Carbon Dioxide 20 L (22-29) mmol/L Anion Gap 14.2 (5-19) BUN 10 (6-20) mg/dL Creatinine 1.4 H (0.5-0.9) mg/dL GFR Calculation 40.5 L (90-130) mL/min Glucose 42 L (65-115) mg/dL POC Glucose (70-110) mg/dL Calculated Osmolal ity 292 (285-295) mOsm/k g Lactic Acid 4.1 H* (0.5-2.2) mmol/L Lactic Acid (Sepsi s) (0.5-2.2) mmol/L Calcium 7.4 L (8.5-10.5) mg/dL Total Bilirubin 1.6 H (0.15-1.2) mg/dL AST 131 H (0-32) U/L ALT 106 H (0-33) U/L Alkaline Phosphata se 213 H (35-105) IU/L Total Protein 3.5 L (6.6-8.7) g/dL Albumin 1.5 L (3.5-5.2) g/dL Globulin 2.0 (1.3-4.6) g/dL Lipase 6 L (13-60) U/L Influenza Type A A g (Negative) Influenza Type B A g (Negative) SARS-CoV-2 Ag (Rap id) 02/26/20 02/26/20 02/26/20 Range/Units 18:50 21:00 21:00 WBC 9.2 (4.0-10.0) 10^3/ uL RBC 2.48 L (4.1-5.3) 10^6/u L Hgb 9.0 L (11.5-15.3) g/dL Hct 29.1 L (37.0-47.0) % MCV 117.3 H (81-99) fL MCH 36.3 H (28.0-34.0) pg MCHC 30.9 (30.0-36.0) g/dL RDW 14.5 (12.1-15.1) % Plt Count 37 L (130-400) 10^3/c mm MPV 13.0 H (7.4-10.4) fL Neut % (Auto) 86.7 % Lymph % (Auto) 9.9 % [place] % (Auto) 2.4 % Eos % (Auto) 0.0 % Baso % (Auto) 0.3 % Neut # (Auto) 7.96 H (1.8-7.7) 10^3/u L Lymph # (Auto) 0.9 (0.8-4.8) 10^3/u L [place] # (Auto) 0.2 (0.2-0.9) 10^3/u L Eos # (Auto) 0.0 (0.0-0.8) 10^3/u L Baso # (Auto) 0.0 (0.0-0.1) 10^3/u L Nucleated RBC % (a uto) 0 % Nucleated RBCs # 0.0 /100WBC PT (12.1-14.9) SECO NDS INR (0.8-1.2) D-Dimer (0-0.59) ug/mIFE U Specimen Type Sample Site ABG pH (7.35-7.45) ABG pCO2 (35-45) mmHg ABG pO2 (80.0-100.0) mmH g ABG HCO3 (22-26) mmol/L ABG Base Excess (-2.0-2.0) mmol/ L Caleb Test Hematocrit (37-47) % Hgb O2 Saturation (95-100) % Carboxyhemoglobin (0.4-20.1) %THgb Methemoglobin (0.4-1.5) % Total Hemoglobin (12-16) g/dL O2 Delivery Device O2 Liters/Min % FiO2 % A And P Technician ID Sodium (136-145) mmol/L Potassium (3.5-5.1) mmol/L Chloride (98-107) mmol/L Carbon Dioxide (22-29) mmol/L Anion Gap (5-19) BUN (6-20) mg/dL Creatinine (0.5-0.9) mg/dL GFR Calculation (90-130) mL/min Glucose (65-115) mg/dL POC Glucose (70-110) mg/dL Calculated Osmolal ity (285-295) mOsm/k g Lactic Acid (0.5-2.2) mmol/L Lactic Acid (Sepsi s) 3.4 H (0.5-2.2) mmol/L Calcium (8.5-10.5) mg/dL Total Bilirubin (0.15-1.2) mg/dL AST (0-32) U/L ALT (0-33) U/L Alkaline Phosphata se (35-105) IU/L Total Protein (6.6-8.7) g/dL Albumin (3.5-5.2) g/dL Globulin (1.3-4.6) g/dL Lipase (13-60) U/L Influenza Type A A g (Negative) Influenza Type B A g (Negative) SARS-CoV-2 Ag (Rap id) Positive H 02/26/20 02/26/20 02/26/20 Range/Units 22:55 23:05 23:36 WBC (4.0-10.0) 10^3/ uL RBC (4.1-5.3) 10^6/u L Hgb (11.5-15.3) g/dL Hct (37.0-47.0) % MCV (81-99) fL MCH (28.0-34.0) pg MCHC (30.0-36.0) g/dL RDW (12.1-15.1) % Plt Count (130-400) 10^3/c mm MPV (7.4-10.4) fL Neut % (Auto) % Lymph % (Auto) % [place] % (Auto) % Eos % (Auto) % Baso % (Auto) % Neut # (Auto) (1.8-7.7) 10^3/u L Lymph # (Auto) (0.8-4.8) 10^3/u L [place] # (Auto) (0.2-0.9) 10^3/u L Eos # (Auto) (0.0-0.8) 10^3/u L Baso # (Auto) (0.0-0.1) 10^3/u L Nucleated RBC % (a uto) % Nucleated RBCs # /100WBC PT (12.1-14.9) SECO NDS INR (0.8-1.2) D-Dimer (0-0.59) ug/mIFE U Specimen Type Sample Site ABG pH (7.35-7.45) ABG pCO2 (35-45) mmHg ABG pO2 (80.0-100.0) mmH g ABG HCO3 (22-26) mmol/L ABG Base Excess (-2.0-2.0) mmol/ L Caleb Test Hematocrit (37-47) % Hgb O2 Saturation (95-100) % Carboxyhemoglobin (0.4-20.1) %THgb Methemoglobin (0.4-1.5) % Total Hemoglobin (12-16) g/dL O2 Delivery Device O2 Liters/Min % FiO2 % A And P Technician ID Sodium (136-145) mmol/L Potassium (3.5-5.1) mmol/L Chloride (98-107) mmol/L Carbon Dioxide (22-29) mmol/L Anion Gap (5-19) BUN (6-20) mg/dL Creatinine (0.5-0.9) mg/dL GFR Calculation (90-130) mL/min Glucose (65-115) mg/dL POC Glucose 20 60 114 (70-110) mg/dL Calculated Osmolal ity (285-295) mOsm/k g Lactic Acid (0.5-2.2) mmol/L Lactic Acid (Sepsi s) (0.5-2.2) mmol/L Calcium (8.5-10.5) mg/dL Total Bilirubin (0.15-1.2) mg/dL AST (0-32) U/L ALT (0-33) U/L Alkaline Phosphata se (35-105) IU/L Total Protein (6.6-8.7) g/dL Albumin (3.5-5.2) g/dL Globulin (1.3-4.6) g/dL Lipase (13-60) U/L Influenza Type A A g (Negative) Influenza Type B A g (Negative) SARS-CoV-2 Ag (Rap id) Imaging Data^: CXR: Attestation: I personally reviewed and interpreted this imaging study as follows: Radiologist's impression: [address] [address] XRay Report Signed Patient: Therese Schaefer AUnit #: [id number] : [id number]#:[id number] Age/Sex: 44 / FADM Date: 02/26/20 Loc: ERRoom/Bed: Attending Dr: Ordering Provider/Ordering MD: Matthew Lemus MD, [facility] [place] Date of Service: 02/26/20 Procedure(s): XR chest 1V portable [id number] Accession Number(s): [id number] Report Number: [id number] XR/XR chest 1V portable [id number] PROCEDURE INFORMATION: Exam: XR Chest, 1 View Exam date and time: 02/26/2020 10:09 PM Age: 44 years old Clinical indication: Device placement; Picc; Additional info: Central line TECHNIQUE: Imaging protocol: XR of the chest Views: 1 view. COMPARISON: CR XR chest 1V portable [id number] 02/26/2020 9:01 PM Findings/impression: Patient is rotated and lung volumes are low, limiting assessment. Tip of right central venous catheter now projects over right atrium. Remainder of study demonstrates no significant change. Dictated By:Samira Moreno MD Signed By:Samira Moreno MDSigned Date/Time:02/26/202224 DD/ 23 Critical Care Time Critical Care Time: Critical Care Time: Yes Total Critical Care Time: 90 Attestation: This case had a high probability of a clinically significant, sudden, or life threatening deterioration of this patient's condition which required my full and direct attention, intervention and personal management. Discharge Plan Discharge Patient Disposition: Admitted As Inpatient Admit Provider: Pryia Ruiz Clinical Impression: Acute hypoxemic respiratory failure due to COVID-19, Sepsis, Pneumonia due to 2019 novel coronavirus Condition: Stable 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 of Care Code ED Driver'S License Reviewing Officer for Kimberly Gilman
--- NOTE | 2020-02-27 02:07 | PC.PHAR ---
Vancomycin is dosed at 1250mg IVPB every 24 hours to produce a predicted trough level of 14.92 (population based pharmacokinetic analysis). A trough level has been ordered from the lab to be obtained before the fourth dose to confirm and adjust if needed. The Zosyn is dosed at 3.375mg IVPB every 8 hours on basis of creatinine clearance of 49.02; each dose to be infused over 4 hours per extended infusion protocol.
--- NOTE | 2020-02-27 02:48 | PM.HP ---
Providers/Chief Complaint Admitting Physician: Priya Ruiz MD Primary Care Provider: Rosi Shell NP Chief Complaint: RESPIRATORY DISTRESS History of Present Illness Therese Schaefer is a 44 year old female with past history of anastomotic ulcer status post gastric bypass, posttraumatic stress disorder, general anxiety, HTN, major depressive disorder, history of chronic pancreatitis, gastroparesis on erythromycin, nephrolithiasis, protein calorie malnutriion due to poor po intake being considered for PEG as outpatient, recent admission in early February for hemetemesis (EGD without bleeding source) and acute liver failure which prompted transfer to [facility]. She returned today to the ER with c/o shortness of breath and hypoxia. Upon EMS presentation she was placed on 02 at 15lpm, then quickly escalated to Hi flow in the ER o now Bipap. Covid antigen +. CXR with B/L diffuse infiltrates c/f ARDS, elevated D dimer at 2.33, ABG wih 7.39, 52.5, 35.3, 21.2, 84.4, PAT with cr 1.4, lactate 4.1. SBP upon admission at 60 systolic, currently on levophed after poor response to 2L IVF bolus. Central line placed in the ER into the right IJ, initially noted to be in IVC, then repositioined to be over righ atrium. CT CAP taken and pending, unable to get contrast due to lack of peripheral iv access. She is currently very lethargic, intermittently agitated, grossly ill appearing. Review of Systems General: Reports: ROS unobtainable due to mental status Medications/Allergies Home Medications Medication Instructions Recorded Confirmed Last Taken Type sucralfate 1 g PO TID 06/21/19 02/26/20 02/26/20 History acetaminophen [Tylenol Extra 500 - 1,000 mg PO Q6H PRN 07/10/19 02/26/20 02/26/20 History Strength] metoprolol tartrate 25 mg PO BID 09/05/19 02/26/20 02/26/20 History multivitamin [Multiple Vitamins] 1 tab PO DAILY 09/05/19 02/26/20 02/26/20 History tramadol [Ultram] 50 mg PO Q8H PRN #14 tab 12/18/19 02/26/20 02/26/20 Rx dexlansoprazole 60 mg 60 mg PO BID #60 cap 12/24/19 02/26/20 02/26/20 Rx capsule,biphase delayed release dicyclomine 20 mg PO QID PRN 12/30/19 02/26/20 02/26/20 History potassium chloride 10 meq PO BID #30 cap 12/30/19 02/26/20 02/26/20 Rx lorazepam 1 mg tablet 1 mg PO TID PRN #90 tab 12/31/19 02/26/20 02/26/20 Rx trazodone 150 mg tablet 150 mg PO BEDTIME PRN #90 tab 12/31/19 02/26/20 02/25/20 Rx erythromycin 250 mg tablet 250 mg PO BID #60 tab 01/28/20 02/26/20 02/26/20 Rx promethazine See Rx Instructions .ROUTE .COMPLEX 02/03/20 02/26/20 02/03/20 History Celexa 20 mg PO DAILY 02/26/20 02/26/20 02/26/20 History clonazepam 1 mg PO TID 02/26/20 02/26/20 02/26/20 History Allergies Allergy/AdvReac Type Severity Reaction Status Date / Time ondansetron [From Zofran] Allergy Severe ALGY-Anaphy Verified 02/19/20 10:54 laxis baclofen Allergy Intermediate Hives Verified 02/19/20 10:54 codeine Allergy Intermediate rash/ felt Verified 02/19/20 10:54 antsy metoclopramide [From Reglan] Allergy Intermediate ALGY-Hives Verified 02/19/20 10:54 prochlorperazine AdvReac Severe ADR-Irritab Verified 02/19/20 10:54 [From Compazine] le promethazine [From Phenergan] AdvReac Severe ADR-Dry Verified 02/19/20 10:54 Mucus Membranes PFSH Acute PFSH: Medical History (Updated 02/27/20 @ 03:42 by Priya Ruiz MD) Acute pancreatitis Anastomotic ulcer S/P gastric bypass Chronic post-traumatic stress disorder Gastroparesis Generalized anxiety disorder Hypertension Major depressive disorder, recurrent severe without psychotic features Pneumonia due to 2019 novel coronavirus Recurrent pancreatitis Sepsis Vomiting blood Surgical History H/O esophagogastroduodenoscopy (~06/2019) H/O: hysterectomy History of partial gastrectomy Hx of cholecystectomy S/P appendectomy Family History Mother CAD (coronary artery disease) Other Hypertension Denies family history of Anesthesia complication Bleeding disorder Social History Smoking and tobacco status: former smoker Alcohol intake: never Adopted: No Caregiver/support person: Yes Lives independently: Yes Household members: family and children Housing: House Marital status: service: No Current occupational status: employed Current occupational exposures/hazards: No Pets and animals: No History of recent travel: No Sexually active: No Current gender identity: Female Teresa/Religious: Yarsanism Special teresa needs: No Agree to transfusion: No Financial difficulty paying for basics: Decline to Answer Vitals/I&O/Wt Last Vital Signs Temp 98.1 F 02/26/20 16:43 Pulse 92 02/27/20 01:19 Resp 31 H 02/27/20 01:19 BP 103/53 02/27/20 01:19 Pulse Ox 92 02/27/20 01:19 02/26/20 02/26/20 02/27/20 14:59 22:59 06:59 Intake Total 1000 / 1000 50 / 1050 Balance 1000 / 1000 50 / 1050 Weight last 48 hrs Weight 72.575 kg Physical Exam Narrative: EXAM NARRATIVE: GEN: lethargic, diaphoretic, ill appearing CVS: tachycardia RS: B/L reduced air entry with crepts all areas Abd: Soft, nt/nd INVESTMENT SPECIALIST: lethargic, moving extremities Data : 02/26/20 21:00 02/26/20 17:58 CT Chest: Radiologist's impression: Ct chest IMPRESSION: 1. Dense confluent consolidations throughout parenchyma of the lungs and near entirety of involvement. 2. Free layering bilateral pleural effusions. 3. Small pericardial effusion. 4. Collection of subcutaneous soft tissue gas near the right internal jugular catheter entrance site and additional elongated collection of gas within and along the margin of right biceps musculature of the right upper extremity. Small adjacent fluid collection of the distal biceps muscle margin. 5. Central vascular catheter tip position right atrium. Ct abdomen IMPRESSION: 1. Progression of anasarca. Mild increased small volume abdominal ascites. 2. Wall thickening of prominent segments of near the entirety of the right colon and left colon suggestive of nonspecific colitis. 3. [place] of small bowel partially containing fluid and gas with a few segments suggesting mucosal edema or wall thickening which may indicate a non-specific enteritis and ileus without obstructive dilatation. A&P Assessment and plan (1) Acute hypoxemic respiratory failure due to COVID-19: Status: Acute (2) Septic shock: Status: Acute (3) Acute respiratory distress syndrome (ARDS) due to 2019 novel coronavirus: Status: Acute (4) Protein-calorie malnutrition: Status: Acute Qualifiers: Protein-calorie malnutrition severity: unspecified severity Qualified Code(s): E46 - Unspecified protein-calorie malnutrition (5) Gastroparesis: Status: Acute (6) Opioid dependence: Status: Acute Qualifiers: Substance use status: uncomplicated Qualified Code(s): F11.20 - Opioid dependence, uncomplicated (7) Agranulocytosis: Status: Acute (8) PAT (acute kidney injury): Status: Acute (9) Anemia: Status: Acute (10) Hypoglycemia: Status: Acute Additional A&P Information Admit to VICU # ARDS due to COVID 19 pneumonia diffuse B/L infiltrates suggestive of ARDS on CXR and CT chest Quickly escalating 02 requirements, currently on Bipap ventilation , high risk to proceed to intubation Remdisivir 200mg loading dose followed by 100mg po qd Dexamethasone 6mg IVP qd Advair BID+ spiriva inhalation elevated D dimer, unable to get contrast study due to lack of peripheral iv access, per radiology cannot administer contrast via central line. Start anicoagulation with full dose lovenox 1mg/kg BID. Patient recently admitted in early February for reported hematemeis, however EGD without any source of bleeding identified/ inflammatory markers with am labs incl D dimer, LDH, ferritin, CRP # Septic shock , unresponsive to 2L fluid resuscitation, started on levophed, goal MAP to be >65 Continue IVF NS @ 150 cc/hr Empiric zosyn and vancomycin Blood cultures ordered MRSA nares Check baseline troponin and then am labs. last known EF 60%, no RWMA, gr 1 diastolic dysfunction from 04/2019 Lipase not elevated, CT abdomen non specific colitis #hypoglycemia, likely a combination of sepsis, poor po inake, improved to 128, expec to improve with steroids # Transmainitis, LFTs elevated but improved over early Nov # PAT, likely as a result of ATN from hypotension # gastroparesis, poor po intake resulting in malnutrition, NPO for now, high risk for aspiration # chronic anemia, multifactorial Patient critically ill DVT ppx: full dose lovenox PUD ppx: protonix 40mg iv q12h given past h/o GI ulceration Full code Attestations Medical Necessity Statement*: > 2midnight anticipated for COVID ARDS, hypoxic respuratory failure, septic shock Critical Care Time: Critical Care Time (min): 60 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
[2020-02-27 03:03] LABS: ABG PCO2 34.7 mmHg (35-45); ABG PH Result 7.29 (7.35-7.45); Alveolar-Arterial Oxygen Gradi 55.6 mmHg (5-10); Arterial Blood Gas Hematocrit 28.3 % (37-47); Base Excess ABG -8.9 mmol/L (-2.0-2.0); Blood Gas Allen Test Pos; Blood Gas Sample Site Radial, left; Blood Gas Sample Type Arterial; Carboxyhemoglobin 0.7 %THgb (0.4-20.1); HCO3 ABG 16.8 mmol/L (22-26); HGB O2 Sat 87.4 % (95-100); Ionized Calcium Level - ABG 1.1 mmol/L (1.1-1.4); Methemoglobin 0.6 % (0.4-1.5); Oxygen Device BIPAP; Oxygen Saturation ABG 88.6; Potassium Level - ABG 3.9 mmol/L (3.5-5.0); Total Hemoglobin 9.2 g/dL (12-16)
[2020-02-27] MEDS: pantoprazole 40 mg SDV IVP ×2 (04:58→13:55)
[2020-02-27] MEDS: vancomycin 1,250 MG/250 ML PIGGYBACK 250 MG IV (04:59)
[2020-02-27] MEDS: enoxaparin 80 mg/0.8 mL Syringe 70 MG SUBCUT ×2 (04:59→13:56)
[2020-02-27] MEDS: piperacillin-tazobactam 3.375 GM in sodium chloride 0.9% (plus) 50 ML IV ×3 (04:59→20:25)
[2020-02-27 05:09] LABS: D Dimer 2.67 ug/mIFEU (0-0.59)
[2020-02-27 05:18] LABS: Lipase 7 U/L (13-60); Troponin T (5th) Once 31 ng/L (0-10)
[2020-02-27 05:45] LABS: ABG PH Result 7.31 (7.35-7.45); HCO3 ABG 17.1 mmol/L (22-26); PO2 ABG 75.5 mmHg (80.0-100.0)
[2020-02-27 05:46] LABS: Arterial Blood Gas Hematocrit 28.7 % (37-47); BIPAP 24/12; Base Excess ABG -8.4 mmol/L (-2.0-2.0); Blood Gas Allen Test pos; Oxygen Device bipap
[2020-02-27 06:23] LABS: Erythrocyte Sedimentation Rate 11 mm/hr (0-15)
[2020-02-27 06:40] LABS: Alanine Aminotransferase 94 U/L (0-33); Albumin Level 1.3 g/dL (3.5-5.2); Alkaline Phosphatase 188 IU/L (35-105); Anion Gap 18.1 (5-19); Aspartate Amino Transferase 121 U/L (0-32); Blood Urea Nitrogen 10 mg/dL (6-20); Calcium 6.7 mg/dL (8.5-10.5); Carbon Dioxide 16 mmol/L (22-29); Chloride 111 mmol/L (98-107); Creatinine Clr Calc Pharmacy 48.7815; Globulin 1.7 g/dL (1.3-4.6); Glomerular Filtration Rate 40.5 mL/min (90-130); Glucose 244 mg/dL (65-115); Osmolality Calculated 299 mOsm/kg (285-295); Potassium 4.1 mmol/L (3.5-5.1); Sodium 141 mmol/L (136-145); Total Bilirubin 1.5 mg/dL (0.15-1.2)
[2020-02-27 06:50] LABS: NT Pro B Type Natriuretic Pept 2591 pg/mL (0-125)
[2020-02-27 07:04] LABS: Lactate Dehydrogenase 1057 U/L (135-214)
--- NOTE | 2020-02-27 07:31 | PC.NURSE ---
ASSUMING CARE Patient brought to VICU from ER on nonrebreather with Dextrose 10% running at 100 mL/hour and levophed at 10 mcg/min. Patient put on BIPAP upon arrival to VICU. Oxygen saturation in the low 80s prior to BIPAP. Alcantara inserted per Dr. Ruiz.
--- NOTE | 2020-02-27 07:34 | PC.NURSE ---
MOTHER CALLED Patients mother called to discuss condition of patient. Mother notified of severity of patients sickness, COVID positive and hypoglycemia. Patient sugar upon arrival to unit 151. Mother notified of patient being lethargic and not alert and oriented, on BIPAP, and hypotensive and levophed drip explained.
[2020-02-27 07:35] LABS: Procalcitonin 2.44 ng/mL (0-0.5)
--- NOTE | 2020-02-27 07:36 | PC.NURSE ---
PHYSICIAN CALLED Dr. Ruiz called to notify of hypotension on levophed drip, and patients overall condition. Alerted of oxygenation in the mid to high 80s. ABG and 1,000 mL NS bolus ordered.
--- NOTE | 2020-02-27 07:39 | PC.NURSE ---
SHIFT SUMMARY Patient continues to be lethargic and not alert or oriented. 325 mL dark tea colored urine output. BIPAP at 75% with a saturation of 94. Levophed gtt has stayed at 10 mcg/min, NS at 125 mL/hour, D10% at 50 mL/hour. Patient has generalized bruising from falls as reported by mother. MAP has stayed above 65. Spoke with mother twice this shift and updated about 0600 on no change other than improved oxygen saturation.
[2020-02-27 07:46] LABS: Ferritin 410 ng/mL (15-150)
[2020-02-27 08:17] LABS: Glucose Point of Care 177 mg/dL (70-110)
[2020-02-27 08:17] LABS: Glucose Point of Care 151 mg/dL (70-110)
[2020-02-27] MEDS: azithromycin 500 MG in sodium chloride 0.9% 250 ML 250 MG IV (08:56)
[2020-02-27] MEDS: sodium chloride 0.9% 1,000 ML 125 ML IV ×2 (09:18→20:27)
[2020-02-27] MEDS: iron sucrose 200 MG in sodium chloride 0.9% (100 ml) 100 ML 220 MG IV (10:37)
[2020-02-27 10:51] LABS: Glucose Point of Care 184 mg/dL (70-110)
[2020-02-27] MEDS: ipratropium-albuterol 3 mL Neb INHALATION ×4 (11:13→23:38)
[2020-02-27] MEDS: budesonide 0.5 mg/2 mL Neb INHALATION ×2 (11:14→19:59)
[2020-02-27 11:15] LABS: Basophils % 0.1 %; Hematocrit 28.8 % (37.0-47.0); Hemoglobin 8.8 g/dL (11.5-15.3); Lymphocytes # 1.3 10^3/uL (0.8-4.8); Mean Corpuscular HGB Conc 30.6 g/dL (30.0-36.0); Mean Corpuscular Hemoglobin 36.1 pg (28.0-34.0); Mean Platelet Volume 12.6 fL (7.4-10.4); Monocytes # 0.2 10^3/uL (0.2-0.9); Monocytes % 1.9 %; Neutrophils # 8.23 10^3/uL (1.8-7.7); Neutrophils % 84.6 %; Nucleated Red Blood Cells % 0 %; Platelet Count 40 10^3/cmm (130-400); Red Blood Count 2.44 10^6/uL (4.1-5.3); Red Cell Distribution Width 14.6 % (12.1-15.1); White Blood Count 9.7 10^3/uL (4.0-10.0)
[2020-02-27 11:46] LABS: Procalcitonin 2.95 ng/mL (0-0.5)
[2020-02-27 11:50] LABS: C Reactive Protein 67.5 mg/L (0.0-4.9); Creatine Phosphokinase 194 U/L (26-192); Thyroid Stimulating Hormone 1.85 uIU/mL (0.27-4.20)
[2020-02-27 11:58] LABS: Alanine Aminotransferase 81 U/L (0-33); Albumin Level 1.2 g/dL (3.5-5.2); Alkaline Phosphatase 179 IU/L (35-105); Anion Gap 18.1 (5-19); Aspartate Amino Transferase 106 U/L (0-32); Blood Urea Nitrogen 10 mg/dL (6-20); Calcium 6.4 mg/dL (8.5-10.5); Carbon Dioxide 17 mmol/L (22-29); Chloride 109 mmol/L (98-107); Globulin 1.7 g/dL (1.3-4.6); Glomerular Filtration Rate 40.5 mL/min (90-130); Glucose 228 mg/dL (65-115); Iron 41 ug/dL (37-145); Osmolality Calculated 296 mOsm/kg (285-295); Potassium 4.1 mmol/L (3.5-5.1); Sodium 140 mmol/L (136-145); Total Bilirubin 1.3 mg/dL (0.15-1.2); Total Protein 2.9 g/dL (6.6-8.7)
[2020-02-27 12:15] LABS: Creatinine Clr Calc Pharmacy 48.7815
[2020-02-27 12:22] LABS: Percent Saturation 70.6 % (20-50); Total Iron Binding Capacity 58 mcg/dl; Unsaturated Iron Binding < 17 ug/dL (112-347)
[2020-02-27 12:31] LABS: Lactic Sepsis W/Reflex 3.5 mmol/L (0.5-2.2)
[2020-02-27 13:35] LABS: Reflex Lactate Order REFLEX LACTIC ORDERD
--- NOTE | 2020-02-27 14:44 | P.PN_ITS ---
Vitals/I&O/Wt Last Vital Signs Temp 987.4 F H 02/27/20 14:00 Pulse 87 02/27/20 14:00 Resp 22 H 02/27/20 14:00 BP 89/71 02/27/20 14:00 Pulse Ox 93 02/27/20 14:00 02/26/20 02/27/20 02/27/20 22:59 06:59 14:59 Intake Total 1000 / 1000 100 / 1100 510 / 510 Output Total 325 / 325 Balance 1000 / 1000 -225 / 775 510 / 510 Weight last 48 hrs Weight 71.804 kg Weight 72.575 kg Physical Exam Urinary Catheter Management^: Alcantara: Cath Placed During This Visit: yes Reason for Continuing Indwelling Catheter: Accurate Measurement of Urinary Output in Critically Ill Patients Urinary Catheter Date of Insertion: 02/27/20 Urinary Catheter Time of Insertion: 01:30 Data : 02/27/20 09:30 02/27/20 09:30 Micro: Microbiology 02/27/20 04:30 Blood Culture - Preliminary Blood SPECIMEN COLLECTED A&P Assessment and plan (1) Acute hypoxemic respiratory failure due to COVID-19: Status: Acute (2) Septic shock: Status: Acute (3) Acute respiratory distress syndrome (ARDS) due to 2019 novel coronavirus: Status: Acute (4) Metabolic acidosis: Status: Acute (5) PAT (acute kidney injury): Status: Acute (6) Agranulocytosis: Status: Acute (7) Anemia: Status: Acute (8) Thrombocytopenia: Status: Acute (9) Hypoglycemia: Status: Acute (10) Protein-calorie malnutrition: Status: Acute Qualifiers: Protein-calorie malnutrition severity: unspecified severity Qualified Code(s): E46 - Unspecified protein-calorie malnutrition (11) Gastroparesis: Status: Acute (12) Opioid dependence: Status: Acute Qualifiers: Substance use status: uncomplicated Qualified Code(s): F11.20 - Opioid dependence, uncomplicated Additional A&P Information Septic Shock: Not responding to fluid challenge. Levophed to keep MAP over 65 mmhg. Wean accordingly. NS @ 125 cc/hr. Monitor HR and urine output. If does not improve will give lasix 40 mg to monitor urine output. C/w Vanc, Zosy and azithromycin. Follow-up culture results and de-escalate accordingly. Check MRSA, procal, probnp. Check urine Legionella, bacterial antigen, urinalysis, urine culture. ARDS due to COVID 19 pneumonia: Severe Disease diffuse B/L infiltrates suggestive of ARDS on CXR and CT chest. ABG appreciated. O2 supplemenattaion to keep saturation over 90% Antiviral treatment with Remdesevir. In view of severe septic shock and ARDS we will switch over to stress dose steroids with Solu-Medrol 125 every 6 hourly for now. DuoNebs every 4 hours through BiPAP, budesonide twice daily. D-dimer elevated. Started on full dose Lovenox overnight. Patient has thrombocytopenia stable hold off on any further anticoagulation for now and monitor. Continue to monitor inflammatory markers including D-dimer, LDH, ferritin, CRP. Given severe ARDS COVID-19 pneumonia we will try to avoid intubation as much as he can as it is a high risk of mortality but if needed we will go ahead and intubate. I tried multiple times to call family on the number in the system but go slightly worse now. We will continue to try. For now full code. Non-anion metabolic acidosis/lactic acidosis: Most likely because of above. We will continue to monitor. Continue with IV fluids. For now hold off on any bicarb. Labs none EF 60%, no RWMA, gr 1 diastolic dysfunction from 04/2019 Lipase not elevated, CT abdomen non specific colitis Hypoglycemia:Likely a combination of sepsis. Continue to monitor blood sugars every 4 hourly. PAT: Most likely secondary to ATN from septic shock. Continue to monitor BMP daily. Continue with fluid resuscitation. For now no electrode normality. Will replete accordingly. Medical reconciliation done for nephrotoxic drugs. Anemia: Chronic most likely because of severe protein energy malnutrition. Check iron panel. Accordingly we will start on supplementation. Check vitamin B12 folate. Thrombocytopenia: Acute. We will continue to monitor. No active signs of bleeding. Most likely secondary to severe septic shock. Transmainitis, LFTs elevated but improved over early Nov Gastroparesis, poor po intake resulting in malnutrition, NPO for now, high risk for aspiration Patient critically ill DVT ppx: SCDs, will avoid Lovenox because of severe thrombocytopenia. 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
[2020-02-27] MEDS: FUROsemide 10 mg/mL SDV 4mL 40 MG IVP (15:32)
[2020-02-27 15:40] LABS: Lactic Acid level (Lactate) 4.2 mmol/L (0.5-2.2)
--- NOTE | 2020-02-27 16:05 | PC.NURSE ---
Received critical lab value of a 4.[address] Norton. Received orders for albumin Q8 hrs and a 500ml NS bolus.
[2020-02-27] MEDS: sodium chloride 0.9% 500 ML IV (16:17)
[2020-02-27 16:54] LABS: ABG PCO2 30.7 mmHg (35-45); ABG PH Result 7.33 (7.35-7.45); Alveolar-Arterial Oxygen Gradi 43.1 mmHg (5-10); Arterial Blood Gas Hematocrit 26.1 % (37-47); Base Excess ABG -8.8 mmol/L (-2.0-2.0); Blood Gas Allen Test Pos; Blood Gas Operator Identificat MONRO; Blood Gas Sample Site Radial, left; Blood Gas Sample Type Arterial; Carboxyhemoglobin 1.2 %THgb (0.4-20.1); HCO3 ABG 16.2 mmol/L (22-26); HGB O2 Sat 85.5 % (95-100); Oxygen Device BIPAP; Oxygen Saturation ABG 87.4; PO2 ABG 56.7 mmHg (80.0-100.0); Potassium Level - ABG 3.8 mmol/L (3.5-5.0); Total Hemoglobin 8.5 g/dL (12-16)
[2020-02-27] MEDS: HYDROmorphone 1 mg/mL INJ 1 mL 0.5 MG IVP (17:22)
[2020-02-27 17:46] LABS: Glucose Point of Care 119 mg/dL (70-110)
--- NOTE | 2020-02-27 18:53 | PC.NURSE ---
Shift summary: pt required bipap throughout shift. Respiratory attempted to transition to heated hi flow but patient could not maintain oxygen levels. patient had a lactic of 4.2 and a 500 ml fluid bolus and albumin was given. patient also received iv maintenance fluids throughout the day. there was minimal urine output throughout the shift. Levophed has been titrated from 10 to 4. patient required a 1 on 1 sitter due to attempting to pull out lines, but has been easily redirected and calm throughout the day.
--- NOTE | 2020-02-27 20:07 | PC.NURSE ---
Assessment 1+ pitting to BLE, pedal pulses +2 bilateral cap refill <3 seconds, scant amount dark yellow urine in cath bag, slight coarseness to bilateral bases upper lobes clear but little diminished, opens eyes to verbal, unable to squeeze hands or lift arms mental status reported in sift change by off going nurse, supine 45 degrees on Bipap at this time, call light within reach, one on one sitter at bedside
--- NOTE | 2020-02-27 23:15 | PC.NURSE ---
change in condition 50 ml urine output this far in shift, increased pitting edema to almost 2+, skin paler, discoloration noted to Bilateral feet, reported to Dr. Ruiz, order given to reduce NS to 75/hr
[2020-02-28] VITALS (58 sets, daily range): BP systolic 88–120; BP diastolic 49–88; PULSE 61–111; RESP 13–28; TEMP 36.4–36.8; O2SAT 82–100
[2020-02-28 00:05] LABS: Glucose Point of Care 99 mg/dL (70-110)
[2020-02-28] MEDS: pantoprazole 40 mg SDV IVP ×2 (00:18→13:19)
[2020-02-28] MEDS: vancomycin 1,250 MG/250 ML PIGGYBACK 250 MG IV (01:56)
--- NOTE | 2020-02-28 02:23 | PC.NURSE ---
Levophed titrated from 4 mcg/min at shift change to 2 mcg/min currently per protocol
[2020-02-28 03:20] LABS: ABG PCO2 33.5 mmHg (35-45); Arterial Blood Gas Hematocrit 20.8 % (37-47); Base Excess ABG -9.2 mmol/L (-2.0-2.0); Blood Gas Sample Site Brachial, left; Blood Gas Sample Type Arterial; Carboxyhemoglobin 1.3 %THgb (0.4-20.1); HCO3 ABG 16.4 mmol/L (22-26); HGB O2 Sat 91.9 % (95-100); Ionized Calcium Level - ABG 1.1 mmol/L (1.1-1.4); Methemoglobin 1.1 % (0.4-1.5); Oxygen Device BIPAP; Oxygen Saturation ABG 94.2; PO2 ABG 72.3 mmHg (80.0-100.0); Potassium Level - ABG 3.9 mmol/L (3.5-5.0); Total Hemoglobin 6.8 g/dL (12-16)
[2020-02-28] MEDS: piperacillin-tazobactam 3.375 GM in sodium chloride 0.9% (plus) 50 ML IV ×2 (04:03→11:15)
[2020-02-28] MEDS: ipratropium-albuterol 3 mL Neb INHALATION ×5 (04:11→19:59)
[2020-02-28 05:31] LABS: Basophils % 0.2 %; Hematocrit 21.7 % (37.0-47.0); Lymphocytes # 1.1 10^3/uL (0.8-4.8); Lymphocytes % 19.8 %; Mean Corpuscular Hemoglobin 36.3 pg (28.0-34.0); Mean Corpuscular Volume 121.2 fL (81-99); Mean Platelet Volume 12.2 fL (7.4-10.4); Monocytes # 0.1 10^3/uL (0.2-0.9); Monocytes % 2.1 %; Neutrophils # 4.46 10^3/uL (1.8-7.7); Neutrophils % 77.6 %; Nucleated Red Blood Cells % 0 %; Red Blood Count 1.79 10^6/uL (4.1-5.3); Red Cell Distribution Width 14.6 % (12.1-15.1); White Blood Count 5.8 10^3/uL (4.0-10.0)
[2020-02-28 05:46] LABS: D Dimer 1.19 ug/mIFEU (0-0.59)
[2020-02-28 05:51] LABS: Fibrinogen 103 mg/dL (174-498)
--- NOTE | 2020-02-28 06:00 | XR_ITS ---
WS: [id number] PORTABLE CHEST HISTORY: covid COMPARISON: 02/26/2020 RIGHT internal jugular venous catheter with tip overlying the RIGHT heart. Mildly hyperexpanded lungs. Diffuse haziness in opacifications with mild improvement since the prior study. Small LEFT pleural effusion. No pneumothorax. Cardiac size: Normal. Mediastinum/Aorta: Normal mediastinum. No osseous abnormality seen. XR/XR chest 1V portable [id number] IMPRESSION: Mild improvement in the bilateral pulmonary opacifications. Slightly less conso lidation.
[2020-02-28 06:07] LABS: Alanine Aminotransferase 55 U/L (0-33); Albumin Level 2.1 g/dL (3.5-5.2); Alkaline Phosphatase 144 IU/L (35-105); Aspartate Amino Transferase 76 U/L (0-32); Blood Urea Nitrogen 10 mg/dL (6-20); C Reactive Protein 49.6 mg/L (0.0-4.9); Calcium 6.7 mg/dL (8.5-10.5); Carbon Dioxide 17 mmol/L (22-29); Chloride 112 mmol/L (98-107); Creatine Phosphokinase 102 U/L (26-192); Ferritin 443 ng/mL (15-150); Globulin 1.3 g/dL (1.3-4.6); Glomerular Filtration Rate 40.5 mL/min (90-130); Glucose 117 mg/dL (65-115); Lactate Dehydrogenase 943 U/L (135-214); NT Pro B Type Natriuretic Pept 3946 pg/mL (0-125); Osmolality Calculated 292 mOsm/kg (285-295); Sodium 141 mmol/L (136-145); Total Bilirubin 1.7 mg/dL (0.15-1.2); Total Protein 3.4 g/dL (6.6-8.7)
[2020-02-28 06:08] LABS: Creatinine Clr Calc Pharmacy 48.7815
[2020-02-28 06:20] LABS: Hemoglobin 6.5 g/dL (11.5-15.3); Slide Review Slide Review Perform
[2020-02-28 06:21] LABS: Platelet Count 28 10^3/cmm (130-400)
--- NOTE | 2020-02-28 06:32 | PC.NURSE ---
Critical reported Hgb 6.5 [address]T [address] Ruiz, recieved T.O. to transfuse 2 units PRBC, supplies for T&C requested from LAB
--- NOTE | 2020-02-28 07:07 | PC.NURSE ---
T&C drawn and sent to lab
[2020-02-28 08:12] LABS: Glucose Point of Care 106 mg/dL (70-110)
[2020-02-28] MEDS: iron sucrose 200 MG in sodium chloride 0.9% (100 ml) 100 ML IV (08:47)
[2020-02-28] MEDS: azithromycin 500 MG in sodium chloride 0.9% 250 ML 250 MG IV (08:48)
[2020-02-28] MEDS: budesonide 0.5 mg/2 mL Neb INHALATION ×2 (08:53→19:59)
[2020-02-28] MEDS: sodium chloride 0.9% (100 ml) 100 ML 30 ML ×2 (10:23→18:54)
[2020-02-28] MEDS: FUROsemide 10 mg/mL SDV 10mL 100 MG IVP ×2 (11:30→17:55)
[2020-02-28 11:43] LABS: Glucose Point of Care 86 mg/dL (70-110)
[2020-02-28] MEDS: HYDROmorphone 1 mg/mL INJ 1 mL 0.5 MG IVP (11:53)
--- NOTE | 2020-02-28 13:27 | P.PN_ITS ---
Subjective Subjective: Interval history: Patient remains clinically critically ill. She is a little more awake than yesterday. Overnight has remained on BiPAP and transitioned over to high flow today morning. Currently she is on heated high flow 50 L 80% saturating around 90%. Levophed was up earlier in the day today at around 10 AM. Minimal urine output since yesterday. Vitals/I&O/Wt Last Vital Signs Temp 98.0 F 02/28/20 11:40 Pulse 79 02/28/20 12:23 Resp 18 02/28/20 12:23 BP 105/88 02/28/20 12:00 Pulse Ox 92 02/28/20 12:23 02/27/20 02/28/20 02/28/20 22:59 06:59 14:59 Intake Total 1350 / 2110 354 / 2464 1459.122 / 1459.122 Output Total 200 / 200 125 / 325 200 / 200 Balance 1150 / 1910 229 / 2139 1259.122 / 1259.122 Weight last 48 hrs Weight 71.804 kg Weight 72.575 kg Physical Exam Narrative: EXAM NARRATIVE: General: Tired appearing, no acute distress at present, pale, ill looking HEENT: PERRLA, pupils bilaterally equal and reactive Chest: Bilateral decreased air entry, bilateral bronchial breath sounds all over the lung mart, bilateral coarse crepitations present all over the lung mart CVS: S1-S2 regular, no murmurs, no tachycardia, no gallops, no rubs Abdomen: Soft, nontender, no organomegaly, bowel sounds present Neuro: Tired appearing, moving limbs, following simple commands Urinary Catheter Management^: Alcantara: Cath Placed During This Visit: yes Reason for Continuing Indwelling Catheter: Accurate Measurement of Urinary Output in Critically Ill Patients Urinary Catheter Date of Insertion: 02/27/20 Urinary Catheter Time of Insertion: 01:30 Data : 02/28/20 04:00 02/28/20 04:00 Micro: Microbiology 02/27/20 16:35 MRSA Culture - Final Nose 02/27/20 04:30 Blood Culture - Preliminary Blood NEGATIVE TO DATE 02/27/20 16:50 Bacterial Antigens - Final Urine,Voided 02/27/20 17:44 Blood Culture - Preliminary Blood SPECIMEN COLLECTED 02/27/20 16:50 Legionella Urinary Antigen - Final Urine Catheterized A&P Assessment and plan (1) Acute hypoxemic respiratory failure due to COVID-19: Status: Acute (2) Septic shock: Status: Acute (3) Acute respiratory distress syndrome (ARDS) due to 2019 novel coronavirus: Status: Acute (4) Metabolic acidosis: Status: Acute (5) PAT (acute kidney injury): Status: Acute (6) Thrombocytopenia: Status: Acute (7) Anemia: Status: Acute (8) Hypoglycemia: Status: Acute (9) Protein-calorie malnutrition: Status: Acute Qualifiers: Protein-calorie malnutrition severity: unspecified severity Qualified Code(s): E46 - Unspecified protein-calorie malnutrition (10) Gastroparesis: Status: Acute (11) Opioid dependence: Status: Acute Qualifiers: Substance use status: uncomplicated Qualified Code(s): F11.20 - Opioid dependence, uncomplicated (12) Agranulocytosis: Status: Acute Additional A&P Information Septic Shock: Not responding to fluid challenge. Wean Levophed keeping mean arterial pressure over 60 to 65 mmHg. Monitor HR and urine output. Decreased fluid at 75 cc/h. Continue with albumin every 8 hours. Continue vancomycin and azithromycin. Will broaden from Zosyn to Primaxin as patient is critically ill. Follow-up culture results and de-escalate accordingly. MRSA swab, urine Legionella, bacterial antigen negative. ARDS due to COVID 19 pneumonia: Severe Disease diffuse B/L infiltrates suggestive of ARDS on CXR and CT chest. ABG appreciated. O2 supplemenattaion to keep saturation over 90% Antiviral treatment with Remdesevir. Continue with stress dose steroids Solu-Medrol 125 every 6 hours for now. DuoNebs every 4 hours through BiPAP, budesonide twice daily. D-dimer elevated. Continue holding anticoagulation at present because of ongoing anemia and severe thrombocytopenia. Continue to monitor inflammatory markers including D-dimer, LDH, ferritin, CRP. Anemia/thrombocytopenia: Hemoglobin dropping to 6.5. Thrombocytopenia since admission. 27,000 today. Cannot rule out DIC. Check DIC panel. Transfuse 2 units of PRBC, 2 units FFP, 2 units of platelet. We will repeat CBC and CMP in evening. Given severely critically ill will consult from mononitrotoluene operator service. Non-anion metabolic acidosis/lactic acidosis: Most likely because of above. We will continue to monitor. Continue with IV fluids. For now hold off on any bicarb. Labs none EF 60%, no RWMA, gr 1 diastolic dysfunction from 04/2019 Lipase not elevated, CT abdomen non specific colitis Hypoglycemia: Blood sugars better now. Continue to monitor blood sugars every 4 hourly. PAT/anuria: Most likely secondary to ATN from septic shock. Patient has minimal urine output since admission. Give her Lasix challenge with 100 mg IV stat. We will continue to monitor. If does not improve will repeat Lasix in the evening. No electrode abnormality at present. Does have acidosis. Hypocalcemia: Corrected with albumin. Anemia: Chronic most likely because of severe protein energy malnutrition. Check iron panel. Accordingly we will start on supplementation. Check vitamin B12 folate. Thrombocytopenia: Acute. We will continue to monitor. No active signs of bleeding. Most likely secondary to severe septic shock. Transmainitis, LFTs elevated but improved over early Nov Gastroparesis, poor po intake resulting in malnutrition, NPO for now, high risk for aspiration Patient critically ill DVT ppx: SCDs, will avoid Lovenox because of severe thrombocytopenia. PUD ppx: protonix 40mg iv q12h given past h/o GI ulceration CODE STATUS: Discussed in detail with her mother who is her DPOA regarding patient being critically ill. Also discussed that given multiorgan dysfunction, septic shock and ARDS patient is at a high risk of mortality or worsening to requiring mechanical ventilation or even chest compressions. Mother states patient would not want back point patient should be DNR/DNI but is okay to treat aggressively with medications. Mother also states patient even refused PEG tube in the past stating she would rather than have a PEG tube placed. CODE STATUS changed to DNR/DNI. Plan for the day: Continue treatment for ARDS with COVID-19 pneumonia with stress dose steroids and remdesivir and nebulization. Continue broad-spectrum antibiotics for septic shock. Continue fluid resuscitation with Lasix challenge for anuria/PTA. Transfused 2 units of PRBC, 2 units FFP, 2 units of platelets and we will continue to monitor for DIC panel, hemoglobin and platelet counts in the evening. Children[employer]S Book Author consulted. Attestations Medical Necessity Statement*: Patient requires further hospitalization for management of septic shock, PAT/anuria, multiorgan dysfunction, ARDS due to COVID-19 pneumonia, severe anemia and thrombocytopenia possibly DIC Critical Care Time: Critical Care Time (min): 80 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 Analytical Chemistry Teacher for g [facility] Diagnoses Acute hypoxemic respiratory failure due to COVID-19 U07.1; J96.01 Septic shock A41.9; R65.21 Acute respiratory distress syndrome (ARDS) due to 2019 novel coronavirus U07.1; J80 Metabolic acidosis E87.2 PAT (acute kidney injury) N17.9 Thrombocytopenia D69.6 Anemia D64.9 Hypoglycemia E16.2 Protein-calorie malnutrition E46 Protein-calorie malnutrition severity: unspecified severity Gastroparesis K31.84 Opioid dependence F11.20 Substance use status: uncomplicated Agranulocytosis D70.9
[2020-02-28 13:58] LABS: Procalcitonin 55.02 ng/mL (0-0.5)
--- NOTE | 2020-02-28 15:17 | PC.NURSE ---
CENTRAL LINE - Central line dressing with dried bloody drainage at 0700. Dressing changed at 1430. This nurse noted suture were not present on left side of central line, blood oozing from insertion site. Dr. Norton notified. Denies CXR to verify placement during this time. New orders to place pressure dressing at this time. Will monitor.
[2020-02-28 17:42] LABS: INR 3.06 (0.8-1.2)
[2020-02-28 17:43] LABS: Hematocrit 32.8 % (37.0-47.0); Mean Corpuscular HGB Conc 31.4 g/dL (30.0-36.0); Mean Corpuscular Volume 105.1 fL (81-99); Mean Platelet Volume 12.9 fL (7.4-10.4); Platelet Count 31 10^3/cmm (130-400); Red Blood Count 3.12 10^6/uL (4.1-5.3); Red Cell Distribution Width 20.2 % (12.1-15.1); White Blood Count 8.6 10^3/uL (4.0-10.0)
[2020-02-28 17:49] LABS: D Dimer 1.05 ug/mIFEU (0-0.59); Partial Thromboplastin Time 89.1 SECONDS (23.9-36.7)
[2020-02-28 17:59] LABS: Fibrinogen 97 mg/dL (174-498)
[2020-02-28 18:05] LABS: Alanine Aminotransferase 62 U/L (0-33); Alkaline Phosphatase 155 IU/L (35-105); Anion Gap 20.3 (5-19); Aspartate Amino Transferase 132 U/L (0-32); Blood Urea Nitrogen 10 mg/dL (6-20); Calcium 7.1 mg/dL (8.5-10.5); Carbon Dioxide 16 mmol/L (22-29); Chloride 111 mmol/L (98-107); Globulin 1.2 g/dL (1.3-4.6); Glomerular Filtration Rate 37.4 mL/min (90-130); Glucose 102 mg/dL (65-115); Osmolality Calculated 297 mOsm/kg (285-295); Potassium 3.3 mmol/L (3.5-5.1); Sodium 144 mmol/L (136-145); Total Bilirubin 2.1 mg/dL (0.15-1.2); Total Protein 4.2 g/dL (6.6-8.7)
[2020-02-28 18:28] LABS: Lactic Sepsis W/Reflex 4.1 mmol/L (0.5-2.2)
[2020-02-28 19:15] LABS: Hemoglobin 10.3 g/dL (11.5-15.3)
[2020-02-28 19:17] LABS: Absolute Neutrophil 7.3 10^3/cmm (1.4-6.5); Absolute Segmented Neutrophil 7.3 10/cmm (1.6-7.1); Anisocytosis 1+; Eosinophils 0 %; Lymphocytes 13 %; Platelet Estimate Decreased (Normal); Segmented Neutrophils 85 %; Total Cells Counted 100 (0-100)
--- NOTE | 2020-02-28 19:17 | PC.NURSE ---
Dr. Norton called, updated on pt condition including urine output and latest labs available for review, HCP advised to continue with FFP and Plts, no N.O. at this time
[2020-02-28 19:40] LABS: Reflex Lactate Order REFLEX LACTIC ORDERD
--- NOTE | 2020-02-28 20:01 | PC.NURSE ---
Assessment 2+ pitting edema BLE, pedal pulses faint but present, BLE and BUE cap refill < 3 seconds, opens eyes on command, will not lift or move extremities or meringuer on command, supine 30 degrees, call light within reach
[2020-02-28 20:15] LABS: Glucose Point of Care 82 mg/dL (70-110)
[2020-02-28 20:28] LABS: Glucose Point of Care 72 mg/dL (70-110)
--- NOTE | 2020-02-28 22:59 | PC.NURSE ---
FFP started 2215 per order, tolerating well, VS WNL
--- NOTE | 2020-02-28 23:16 | PC.NURSE ---
2nd bag FFP infused per order, tolerated well
[2020-02-29] VITALS (39 sets, daily range): BP systolic 95–155; BP diastolic 72–113; PULSE 65–118; RESP 15–36; TEMP 35.7–37.2; O2SAT 84–98
--- NOTE | 2020-02-29 00:13 | PC.NURSE ---
1st bag of platelets infused per order, tolerated well
[2020-02-29] MEDS: ipratropium-albuterol 3 mL Neb INHALATION ×7 (00:22→23:34)
[2020-02-29] MEDS: pantoprazole 40 mg SDV IVP ×2 (01:15→13:20)
--- NOTE | 2020-02-29 01:41 | PC.NURSE ---
Vanc Trough drawn
[2020-02-29 02:01] LABS: Lactic Acid level (Lactate) 4.2 mmol/L (0.5-2.2)
[2020-02-29 02:10] LABS: Vancomycin Trough 23.1 ug/mL (10-15)
--- NOTE | 2020-02-29 02:26 | PC.NURSE ---
Vancomycin held for vanc trough 23.1 per Rx
--- NOTE | 2020-02-29 02:33 | PC.PHAR ---
Vancomycin trough before fourth dose of 1250mg IVPB every 24 hours is 23.1. Hold the next 2 doses and resume at 1gm IVPB every 24 hours with a trough to be obtained before the fourth 1 gm dose.
--- NOTE | 2020-02-29 02:57 | PC.NURSE ---
2nd bag of platelets transfused per order, tolerated well, VS WNL
[2020-02-29 03:19] LABS: ABG PH Result 7.33 (7.35-7.45); Alveolar-Arterial Oxygen Gradi 72.4 mmHg (5-10); Arterial Blood Gas Hematocrit 27.7 % (37-47); Base Excess ABG -8.2 mmol/L (-2.0-2.0); Blood Gas Sample Site Brachial, left; Blood Gas Sample Type Arterial; Carboxyhemoglobin 0.5 %THgb (0.4-20.1); HCO3 ABG 16.9 mmol/L (22-26); HGB O2 Sat 80.9 % (95-100); Methemoglobin 1.1 % (0.4-1.5); Oxygen Device BIPAP; Oxygen Saturation ABG 82.2; PO2 ABG 48.9 mmHg (80.0-100.0)
--- NOTE | 2020-02-29 04:00 | PC.NURSE ---
N.O. Dr. Ruiz notified of pt pulling off Bipap and O2 drops to 70's on RA, O2 86 on bipap with 100% Fio2, O2 won't tolerate HHF NC per RT, Dr Ruiz approved order for Precedex Drip per protocol
[2020-02-29] MEDS: sodium chloride 0.9% (100 ml) 100 ML (04:08)
[2020-02-29] MEDS: dexmedetomidine 400 MCG in sodium chloride 0.9% (100 ml) 100 ML IV (04:11)
[2020-02-29 04:41] LABS: Basophils % 0.1 %; Hematocrit 26.7 % (37.0-47.0); Hemoglobin 8.3 g/dL (11.5-15.3); Lymphocytes # 0.6 10^3/uL (0.8-4.8); Mean Corpuscular HGB Conc 31.1 g/dL (30.0-36.0); Mean Corpuscular Hemoglobin 33.3 pg (28.0-34.0); Mean Corpuscular Volume 107.2 fL (81-99); Mean Platelet Volume 10.6 fL (7.4-10.4); Monocytes # 0.2 10^3/uL (0.2-0.9); Nucleated Red Blood Cells % 0 %; Platelet Count 81 10^3/cmm (130-400); Red Blood Count 2.49 10^6/uL (4.1-5.3); Red Cell Distribution Width 21.6 % (12.1-15.1); White Blood Count 7.4 10^3/uL (4.0-10.0)
[2020-02-29 05:07] LABS: Alanine Aminotransferase 53 U/L (0-33); Albumin Level 3.2 g/dL (3.5-5.2); Alkaline Phosphatase 152 IU/L (35-105); Anion Gap 21.9 (5-19); Aspartate Amino Transferase 113 U/L (0-32); Blood Urea Nitrogen 11 mg/dL (6-20); C Reactive Protein 27.5 mg/L (0.0-4.9); Calcium 7.3 mg/dL (8.5-10.5); Carbon Dioxide 17 mmol/L (22-29); Chloride 111 mmol/L (98-107); Creatine Phosphokinase 147 U/L (26-192); Ferritin 744 ng/mL (15-150); Globulin 1.6 g/dL (1.3-4.6); Glomerular Filtration Rate 37.4 mL/min (90-130); Glucose 74 mg/dL (65-115); Lactate Dehydrogenase 866 U/L (135-214); NT Pro B Type Natriuretic Pept 13263 pg/mL (0-125); Osmolality Calculated 302 mOsm/kg (285-295); Sodium 147 mmol/L (136-145); Total Protein 4.8 g/dL (6.6-8.7)
[2020-02-29 05:10] LABS: Potassium 2.9 mmol/L (3.5-5.1)
[2020-02-29 05:19] LABS: Fibrinogen 143 mg/dL (174-498)
[2020-02-29 05:22] LABS: D Dimer 0.89 ug/mIFEU (0-0.59)
--- NOTE | 2020-02-29 05:32 | PC.NURSE ---
Critical lab K of 2.[address] Ruiz, order recieved for potassium 60 mEq IV with Lidocaine
--- NOTE | 2020-02-29 05:49 | PC.NURSE ---
Dr. Ruiz notified that Computer wouldn't let this nurse put in a 60 mEq K-rider order
--- NOTE | 2020-02-29 06:17 | PC.NURSE ---
N.O. Dr. Ruiz gave order for K-rider 80 meq
[2020-02-29] MEDS: lidocaine 1% 5 ML in potassium chloride premix 100 ML 25 ML IV (06:48)
[2020-02-29 08:31] LABS: Glucose Point of Care 74 mg/dL (70-110)
[2020-02-29] MEDS: budesonide 0.5 mg/2 mL Neb INHALATION ×2 (08:36→19:54)
[2020-02-29] MEDS: azithromycin 500 MG in sodium chloride 0.9% 250 ML 200 MG IV (08:56)
[2020-02-29] MEDS: iron sucrose 200 MG in sodium chloride 0.9% (100 ml) 100 ML IV (08:57)
[2020-02-29] MEDS: FUROsemide 10 mg/mL SDV 4mL 100 MG IVP ×2 (10:35→17:29)
[2020-02-29 11:41] LABS: Glucose Point of Care 78 mg/dL (70-110)
[2020-02-29] MEDS: D5-NS 0.45% + KCL 20 mEq 20 MEQ/1,000 ML BAG 50 MEQ IV (13:18)
--- NOTE | 2020-02-29 16:41 | PM.PN ---
Subjective Subjective: Interval history: Patient remains critically ill, BiPAP dependent. Has remained afebrile and off pressors in last 24 hours. Saturating 93% on BiPAP. Minimally awake but responds to physical stimulus. Documented urine output in last 24 hours 2600 cc. Vitals/I&O/Wt Last Vital Signs Temp 96.3 F L 02/29/20 16:00 Pulse 89 02/29/20 16:00 Resp 18 02/29/20 16:00 BP 155/110 02/29/20 16:00 Pulse Ox 93 02/29/20 16:00 02/29/20 02/29/20 02/29/20 06:59 14:59 22:59 Intake Total 897.622 / 4306.744 665 / 665 Output Total 1400 / 2650 400 / 400 Balance -502.378 / 1656.744 265 / 265 Physical Exam Narrative: EXAM NARRATIVE: General: Tired appearing, no acute distress at present, pale, ill looking HEENT: PERRLA, pupils bilaterally equal and reactive Chest: Bilateral decreased air entry, bilateral bronchial breath sounds all over the lung mart, bilateral coarse crepitations present all over the lung matr CVS: S1-S2 regular, no murmurs, no tachycardia, no gallops, no rubs Abdomen: Soft, nontender, no organomegaly, bowel sounds present Neuro: Tired appearing, moving limbs, following simple commands Urinary Catheter Management^: [place]: Cath Placed During This Visit: yes Reason for Continuing Indwelling Catheter: Accurate Measurement of Urinary Output in Critically Ill Patients Urinary Catheter Date of Insertion: 02/27/20 Urinary Catheter Time of Insertion: 01:30 Data : 02/29/20 03:00 02/29/20 03:00 Micro: Microbiology 02/27/20 17:44 Blood Culture - Preliminary Blood NEGATIVE TO DATE A&P Assessment and plan (1) Acute hypoxemic respiratory failure due to COVID-19: Status: Acute (2) Septic shock: Status: Acute (3) Acute respiratory distress syndrome (ARDS) due to 2019 novel coronavirus: Status: Acute (4) Metabolic acidosis: Status: Acute (5) PAT (acute kidney injury): Status: Acute (6) Thrombocytopenia: Status: Acute (7) Anemia: Status: Acute (8) Hypoglycemia: Status: Acute (9) Protein-calorie malnutrition: Status: Acute Qualifiers: Protein-calorie malnutrition severity: unspecified severity Qualified Code(s): E46 - Unspecified protein-calorie malnutrition (10) Gastroparesis: Status: Acute (11) Opioid dependence: Status: Acute Qualifiers: Substance use status: uncomplicated Qualified Code(s): F11.20 - Opioid dependence, uncomplicated (12) Agranulocytosis: Status: Acute (13) DIC (disseminated intravascular coagulation): Status: Acute Additional A&P Information Septic Shock: Not responding to fluid challenge. Off pressors. Continue to monitor blood pressure, urine output, heart rate. Patient is getting really fluid overload now. Decreased fluid resuscitation to 50 cc/h. Continue with albumin every 8 hours for now. Continue vancomycin, Primaxin and azithromycin. Continue to follow blood cultures and de-escalate accordingly. MRSA swab for urine Legionella, bacterial antigen negative. Will dose antibiotics renally. ARDS due to COVID 19 pneumonia: Severe Disease diffuse B/L infiltrates suggestive of ARDS on CXR and CT chest. ABG appreciated. O2 supplemenattaion to keep saturation over 90% Antiviral treatment with Remdesevir. Decrease steroids to Solu-Medrol 125 every 8 hours for now. DuoNebs every 4 hours through BiPAP, budesonide twice daily. D-dimer elevated. Continue holding anticoagulation at present because of ongoing anemia and severe thrombocytopenia. Continue to monitor inflammatory markers including D-dimer, LDH, ferritin, CRP. Anemia/thrombocytopenia: As per the results patient is in DIC. FDP, D-dimer, INR elevated. DIC score 6. Hemoglobin stable. Post 2 units PRBC, 2 units FFP, 2 days platelet transfusion. Recheck CBC and CMP in evening. We will replete accordingly. Given severely critically ill will consult from metal bonding crib attendant service. Non-anion metabolic acidosis/lactic acidosis: Most likely because of above. We will continue to monitor. Continue with IV fluids. For now hold off on any bicarb. Labs none EF 60%, no RWMA, gr 1 diastolic dysfunction from 04/2019 Lipase not elevated, CT abdomen non specific colitis Hypoglycemia: Blood sugars better now. Continue to monitor blood sugars every 4 hourly. PAT/anuria: Most likely secondary to ATN from septic shock. Urine output better in last 24 hours. Continue with Lasix challenge 100 mg IV twice daily for now. No electrode abnormality at present. Does have acidosis. Hypocalcemia: Corrected with albumin. Anemia: Chronic most likely because of severe protein energy malnutrition. IV iron supplementation. Thrombocytopenia: Acute. We will continue to monitor. No active signs of bleeding. Most likely secondary to severe septic shock. Transmainitis, LFTs elevated but improved over early Nov Gastroparesis, poor po intake resulting in malnutrition, NPO for now, high risk for aspiration Patient critically ill DVT ppx: SCDs, will avoid Lovenox because of severe thrombocytopenia. PUD ppx: protonix 40mg iv q12h given past h/o GI ulceration CODE STATUS: Discussed in detail with her mother who is her DPOA regarding patient being critically ill. Also discussed that given multiorgan dysfunction, septic shock and ARDS patient is at a high risk of mortality or worsening to requiring mechanical ventilation or even chest compressions. Mother states patient would not want back point patient should be DNR/DNI but is okay to treat aggressively with medications. Mother also states patient even refused PEG tube in the past stating she would rather than have a PEG tube placed. CODE STATUS changed to DNR/DNI. Plan for the day: Continue treatment for ARDS with COVID-19 pneumonia with stress dose steroids and remdesivir and nebulization. Continue broad-spectrum antibiotics for septic shock. Recheck CBC and CMP in evening. Continue with Lasix challenge for PAT. Attestations Medical Necessity Statement*: Patient is critically ill. Needs further hospitalization for management of septic shock, ARDS, DIC because of COVID-19 pneumonia, PAT. Critical Care Time: Critical Care Time (min): 80 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 Reject Opener And Filler for [facility] Diagnoses Acute hypoxemic respiratory failure due to COVID-19 U07.1; J96.01 Septic shock A41.9; R65.21 Acute respiratory distress syndrome (ARDS) due to 2019 novel coronavirus U07.1; J80 Metabolic acidosis E87.2 PAT (acute kidney injury) N17.9 Thrombocytopenia D69.6 Anemia D64.9 Hypoglycemia E16.2 Protein-calorie malnutrition E46 Protein-calorie malnutrition severity: unspecified severity Gastroparesis K31.84 Opioid dependence F11.20 Substance use status: uncomplicated Agranulocytosis D70.9 DIC (disseminated intravascular coagulation) D65
[2020-02-29 17:29] LABS: Basophils % 0.2 %; Hemoglobin 9.5 g/dL (11.5-15.3); Lymphocytes # 0.4 10^3/uL (0.8-4.8); Lymphocytes % 6.5 %; Mean Corpuscular HGB Conc 31.7 g/dL (30.0-36.0); Mean Corpuscular Hemoglobin 33.6 pg (28.0-34.0); Mean Platelet Volume 11.1 fL (7.4-10.4); Monocytes # 0.1 10^3/uL (0.2-0.9); Monocytes % 1.8 %; Neutrophils # 5.95 10^3/uL (1.8-7.7); Nucleated Red Blood Cells % 0 %; Platelet Count 65 10^3/cmm (130-400); Red Blood Count 2.83 10^6/uL (4.1-5.3); Red Cell Distribution Width 21.8 % (12.1-15.1); White Blood Count 6.6 10^3/uL (4.0-10.0)
[2020-02-29 18:01] LABS: Glucose Point of Care 112 mg/dL (70-110)
[2020-02-29 18:13] LABS: Alanine Aminotransferase 45 U/L (0-33); Albumin Level 3.6 g/dL (3.5-5.2); Alkaline Phosphatase 204 IU/L (35-105); Anion Gap 18.2 (5-19); Aspartate Amino Transferase 85 U/L (0-32); Blood Urea Nitrogen 11 mg/dL (6-20); Calcium 7.5 mg/dL (8.5-10.5); Carbon Dioxide 21 mmol/L (22-29); Chloride 114 mmol/L (98-107); Creatinine Clr Calc Pharmacy 48.7815; Globulin 1.1 g/dL (1.3-4.6); Glomerular Filtration Rate 40.5 mL/min (90-130); Glucose 122 mg/dL (65-115); Osmolality Calculated 311 mOsm/kg (285-295); Potassium 3.2 mmol/L (3.5-5.1); Sodium 150 mmol/L (136-145); Total Bilirubin 2.7 mg/dL (0.15-1.2); Total Protein 4.7 g/dL (6.6-8.7)
--- NOTE | 2020-02-29 19:00 | PC.NURSE ---
Report received. Care assumed. Monitor alarms, plan of care et previous orders reviewed. Patient resting in bed on BiPAP, see RT flowsheet for details.. Precedex gtt infusing, titrating to effect. Patient does not awaken easily. She only responds minimally when spoken to et does not open eyes unless she has repeated verbal requests to do so. Patient is very pale et her extremities (hands et feet) are cool et swollen. Patient is able to move all extremities but does not follow commands to do so. Right sided internal juggler triple lumen central lines, central placement is verified per x-ray. Central line site has some bruising et some swelling. Site appears non-tender et the dressing is intact. Bilateral breath sounds per auscultation. Abdomen soft, round appearing non-tender with positive bowel sounds. Alcantara catheter to dependent drainage. Bilateral lower extremity SCDs. Please see physical assessment et vital sign flowsheet for details.
--- NOTE | 2020-02-29 19:27 | PC.NURSE ---
1020- DR ANAND NOTIFIED OF INCREASED BP 146/113. WILL CONTINUE TO MONITOR, LASIX 100MG IV GIVEN.
--- NOTE | 2020-02-29 19:36 | PC.NURSE ---
1630- 80MEQ OF POTASSIUM GIVEN IVPB TODAY. ASKED DR ANAND ABOUT TOTAL DOSAGE TO THE DAY, HOLD DOSE THAT WAS DUE THIS AFTERNOON. X1 BAG OF ALBUMIN WASTED D/T BAG SPIKED & HANGING WHEN DR CALLED TO CANCEL MEDICATION.
[2020-02-29 20:10] LABS: Glucose Point of Care 107 mg/dL (70-110)
[2020-02-29] MEDS: dexmedetomidine 400 MCG in sodium chloride 0.9% (100 ml) 100 ML 5.6 MCG IV (21:58)
[2020-02-29 23:42] LABS: Glucose Point of Care 102 mg/dL (70-110)
[2020-03-01] VITALS (38 sets, daily range): BP systolic 107–151; BP diastolic 83–116; PULSE 70–110; RESP 15–34; TEMP 36.1–36.8; O2SAT 74–100
[2020-03-01] MEDS: pantoprazole 40 mg SDV IVP ×2 (00:45→12:47)
[2020-03-01] MEDS: vancomycin 1,000 MG in sodium chloride 0.9% 250 ML 250 MG IV (01:49)
[2020-03-01] MEDS: ipratropium-albuterol 3 mL Neb INHALATION ×6 (03:06→23:30)
[2020-03-01 04:59] LABS: Arterial Blood Gas Hematocrit 34.5 % (37-47); Base Excess ABG -4.5 mmol/L (-2.0-2.0); Blood Gas Allen Test Pos; Blood Gas Operator Identificat JB; Blood Gas Sample Site Radial, left; Blood Gas Sample Type Arterial; Carboxyhemoglobin 0.1 %THgb (0.4-20.1); HCO3 ABG 19.6 mmol/L (22-26); HGB O2 Sat 89.7 % (95-100); Ionized Calcium Level - ABG 1.1 mmol/L (1.1-1.4); Oxygen Device HAG; Oxygen Saturation ABG 90.6; PO2 ABG 67.2 mmHg (80.0-100.0); Potassium Level - ABG 2.7 mmol/L (3.5-5.0); Total Hemoglobin 11.3 g/dL (12-16)
[2020-03-01 05:00] LABS: Alveolar-Arterial Oxygen Gradi 41.6 mmHg (5-10)
[2020-03-01 05:00] LABS: Glucose Point of Care 91 mg/dL (70-110)
[2020-03-01 05:36] LABS: Basophils % 0.2 %; Hematocrit 31.1 % (37.0-47.0); Hemoglobin 9.9 g/dL (11.5-15.3); Lymphocytes # 0.4 10^3/uL (0.8-4.8); Lymphocytes % 6.7 %; Mean Corpuscular HGB Conc 31.8 g/dL (30.0-36.0); Mean Corpuscular Hemoglobin 33.1 pg (28.0-34.0); Mean Platelet Volume 11.6 fL (7.4-10.4); Monocytes # 0.1 10^3/uL (0.2-0.9); Monocytes % 2.3 %; Neutrophils # 5.09 10^3/uL (1.8-7.7); Neutrophils % 89.7 %; Nucleated Red Blood Cells % 0 %; Platelet Count 64 10^3/cmm (130-400); Red Blood Count 2.99 10^6/uL (4.1-5.3); Red Cell Distribution Width 21.3 % (12.1-15.1); White Blood Count 5.7 10^3/uL (4.0-10.0)
--- NOTE | 2020-03-01 06:00 | XRR_ITS ---
PROCEDURE INFORMATION: Exam: XR Chest, 1 View Exam date and time: 02/29/2020 11:59 PM Age: 44 years old Clinical indication: Dyspnea; Additional info: Covid TECHNIQUE: Imaging protocol: XR of the chest Views: 1 view. COMPARISON: CR XR chest 1V portable [id number] 02/28/2020 4:54 AM FINDINGS: Tubes, catheters and devices: Right IJ catheter tip still in the right atrium. Lungs: Interval clearance of much of the airspace disease from the right upper lobe, but increase in the patchy airspace disease in the lower right lung. Continued increased interstitial markings and/or patchy airspace disease in most of the left lung. Pleural space: No definite evidence of pleural fluid. Multiple overlapping extrinsic structures, but probably no pneumothorax. Heart/Mediastinum: Still no cardiomegaly. Bones/joints: No obvious acute bony disease. Intraperitoneal space: Continued surgical clips in the upper abdomen. XR/XR chest 1V portable [id number] IMPRESSION: 1. Stable positioning of the right IJ catheter. 2. Interval improvement in the right upper lung disease, but worsening of the right lower lung disease. No significant change in the disease involving most of the left lung. 3. No definite evidence of pleural fluid currently. Still no cardiomegaly. Other findings detailed above.
[2020-03-01 06:15] LABS: C Reactive Protein 53.1 mg/L (0.0-4.9); Creatine Phosphokinase 134 U/L (26-192); Lactate Dehydrogenase 977 U/L (135-214); NT Pro B Type Natriuretic Pept 28199 pg/mL (0-125)
[2020-03-01 06:27] LABS: Fibrinogen 152 mg/dL (174-498)
[2020-03-01 06:29] LABS: D Dimer 1.98 ug/mIFEU (0-0.59)
[2020-03-01 06:34] LABS: Ferritin 1228 ng/mL (15-150)
--- NOTE | 2020-03-01 06:42 | NUR.SHIFT ---
Patient napoles uneventful night. Patient does remain on BiPAP et is dependent on it. She has been able to come off for 30-45 seconds for oral care. Patient remains on a Precedex gtt. See physical assessments, nursing notes et vital sign flowsheets for details.
[2020-03-01 08:04] LABS: Glucose Point of Care 106 mg/dL (70-110)
[2020-03-01 08:06] LABS: Alanine Aminotransferase 41 U/L (0-33); Albumin Level 3.1 g/dL (3.5-5.2); Alkaline Phosphatase 255 IU/L (35-105); Anion Gap 21.8 (5-19); Aspartate Amino Transferase 71 U/L (0-32); Blood Urea Nitrogen 12 mg/dL (6-20); Calcium 7.4 mg/dL (8.5-10.5); Carbon Dioxide 19 mmol/L (22-29); Chloride 114 mmol/L (98-107); Globulin 1.5 g/dL (1.3-4.6); Glomerular Filtration Rate 40.5 mL/min (90-130); Glucose 110 mg/dL (65-115); Osmolality Calculated 314 mOsm/kg (285-295); Sodium 152 mmol/L (136-145); Total Bilirubin 2.8 mg/dL (0.15-1.2); Total Protein 4.6 g/dL (6.6-8.7)
[2020-03-01] MEDS: budesonide 0.5 mg/2 mL Neb INHALATION ×2 (08:36→20:05)
[2020-03-01] MEDS: iron sucrose 200 MG in sodium chloride 0.9% (100 ml) 100 ML 220 MG IV (08:40)
[2020-03-01] MEDS: azithromycin 500 MG in sodium chloride 0.9% 250 ML 250 MG IV (08:41)
[2020-03-01 09:50] LABS: Potassium 2.8 mmol/L (3.5-5.1)
[2020-03-01] MEDS: FUROsemide 200 MG in sodium chloride 0.9% (100 ml) 80 ML IV (10:00)
[2020-03-01] MEDS: AA-Dex 5%-20% w/Lytes 1,000 ML 42 ML IV (10:48)
[2020-03-01] MEDS: potassium chloride premix 100 ML 50 MEQ IV ×3 (11:19→17:04)
[2020-03-01] MEDS: FUROsemide 10 mg/mL SDV 4mL 40 MG IVP (11:22)
--- NOTE | 2020-03-01 11:46 | PC.RESP ---
Patient ripped off hhfnc, rt and nurse quickly placed pt on bipap. Sats improved to 98% on 100% fio2. rt will titrate
[2020-03-01] MEDS: HYDROmorphone 1 mg/mL INJ 1 mL 0.5 MG IVP (12:42)
[2020-03-01] MEDS: sodium chloride 0.9% (100 ml) 100 ML (12:42)
[2020-03-01 14:14] LABS: ABG PCO2 33.9 mmHg (35-45); ABG PH Result 7.36 (7.35-7.45); Arterial Blood Gas Hematocrit 31.3 % (37-47); Base Excess ABG -5.4 mmol/L (-2.0-2.0); Blood Gas Allen Test Pos; Blood Gas Operator Identificat MONRO; Blood Gas Sample Site Radial, left; Blood Gas Sample Type Arterial; HCO3 ABG 19.3 mmol/L (22-26); Oxygen Device BIPAP; PO2 ABG 50.1 mmHg (80.0-100.0)
[2020-03-01 16:34] LABS: Glucose Point of Care 227 mg/dL (70-110)
--- NOTE | 2020-03-01 17:03 | P.PN_ITS ---
Subjective Subjective: Interval history: Patient remains critically ill. Labs and vitals noted. Urine output improving. Is awake and trying to get BiPAP off. Tried putting on high flow but desaturates. ABG appreciated to be having severe ARDS. Saturation are mostly maintained in the low 80s after which she was put in semiprone position and saturation improved to 88%. Family was called in to be bedside to because of critically ill condition. Family visited for around an hour. Has remained hemodynamically stable, afebrile off pressors. Vitals/I&O/Wt Last Vital Signs Temp 97.9 F 03/01/20 16:00 Pulse 102 H 03/01/20 16:00 Resp 15 03/01/20 16:00 BP 125/92 03/01/20 16:00 Pulse Ox 88 L 03/01/20 16:00 03/01/20 03/01/20 03/01/20 06:59 14:59 22:59 Intake Total 350 / 1403.853 560 / 560 200 / 760 Output Total 1300 / 3225 950 / 950 600 / 1550 Balance -950 / -1821.147 -390 / -390 -400 / -790 Weight last 48 hrs Weight 86.999 kg Physical Exam Narrative: EXAM NARRATIVE: General: Tired appearing, no acute distress at present, pale, ill looking HEENT: PERRLA, pupils bilaterally equal and reactive Chest: Bilateral decreased air entry, bilateral bronchial breath sounds all over the lung mart, bilateral coarse crepitations present all over the lung mart CVS: S1-S2 regular, no murmurs, no tachycardia, no gallops, no rubs Abdomen: Soft, nontender, no organomegaly, bowel sounds present Neuro: Tired appearing, moving limbs, following simple commands Urinary Catheter Management^: [place]: Cath Placed During This Visit: yes Reason for Continuing Indwelling Catheter: Accurate Measurement of Urinary Output in Critically Ill Patients Urinary Catheter Date of Insertion: 02/27/20 Urinary Catheter Time of Insertion: 01:30 Data : 03/01/20 04:30 03/01/20 04:30 A&P Assessment and plan (1) Acute hypoxemic respiratory failure due to COVID-19: Status: Acute (2) Septic shock: Status: Acute (3) Acute respiratory distress syndrome (ARDS) due to 2019 novel coronavirus: Status: Acute (4) Metabolic acidosis: Status: Acute (5) PAT (acute kidney injury): Status: Acute (6) Thrombocytopenia: Status: Acute (7) Anemia: Status: Acute (8) Hypoglycemia: Status: Acute (9) Protein-calorie malnutrition: Status: Acute Qualifiers: Protein-calorie malnutrition severity: unspecified severity Qualified Code(s): E46 - Unspecified protein-calorie malnutrition (10) Gastroparesis: Status: Acute (11) Opioid dependence: Status: Acute Qualifiers: Substance use status: uncomplicated Qualified Code(s): F11.20 - Opioid dependence, uncomplicated (12) Agranulocytosis: Status: Acute (13) DIC (disseminated intravascular coagulation): Status: Acute Additional A&P Information Septic Shock: Not responding to fluid challenge. Off pressors. Continue to monitor blood pressure, urine output, heart rate. Patient is getting really fluid overload now. Decreased fluid resuscitation to 50 cc/h. Continue with albumin every 8 hours for now. Continue vancomycin, Primaxin and azithromycin. Continue to follow blood cultures and de-escalate accordingly. MRSA swab for urine Legionella, bacterial antigen negative. Will dose antibiotics renally. ARDS due to COVID 19 pneumonia: Severe Disease diffuse B/L infiltrates suggestive of ARDS on CXR and CT chest. ABG appreciated. O2 supplemenattaion to keep saturation over 90%. Continue currently BiPAP d ependent. Prone to semiprone position as possible. Aggressive pulmonary toilet with chest vest, if possible with incentive spirometry and flutter valve. Antiviral treatment with Remdesevir. Decrease steroids to Solu-Medrol 125 every 8 hours for now. DuoNebs every 4 hours through BiPAP, budesonide twice daily. D-dimer elevated. Continue holding anticoagulation at present because of ongoing anemia and severe thrombocytopenia. Continue to monitor inflammatory markers including D-dimer, LDH, ferritin, CRP. DIC: Anemia/thrombocytopenia: As per the results patient is in DIC. FDP, D- dimer, INR elevated. DIC score 6. Hemoglobin stable. Post 2 units each of PRBC, platelet and FFP. Continue to monitor CBC and platelet count. Appreciate Recommendation Non-anion metabolic acidosis/lactic acidosis: Most likely because of above. We will continue to monitor. Continue with IV fluids. For now hold off on any bicarb. Recent echo EF 60%, no RWMA, gr 1 diastolic dysfunction from 04/2019 Lipase not elevated, CT abdomen non specific colitis PAT/anuria: Resolving. Urine output improving. Start patient on Lasix drip 10 mg/h. Continue to monitor urine output. Will replete potassium. Continue to monitor BMP daily for now. Hypocalcemia: Corrected with albumin. Anemia: Chronic most likely because of severe protein energy malnutrition. IV iron supplementation. Transmainitis, LFTs elevated but improved over early Nov Gastroparesis, poor po intake resulting in malnutrition, NPO for now, high risk for aspiration Patient critically ill DVT ppx: SCDs, will avoid Lovenox because of severe thrombocytopenia. PUD ppx: protonix 40mg iv q12h given past h/o GI ulceration CODE STATUS: Discussed in detail with her mother who is her DPOA regarding patient being critically ill. Also discussed that given multiorgan dysfunction, septic shock and ARDS patient is at a high risk of mortality or worsening to requiring mechanical ventilation or even chest compressions. Mother states patient would not want back point patient should be DNR/DNI but is okay to treat aggressively with medications. Mother also states patient even refused PEG tube in the past stating she would rather than have a PEG tube placed. CODE STATUS changed to DNR/DNI. Plan for the day: Continue aggressive treatment for ARDS with remdesivir, stress dose steroids, broad-spectrum antibiotics, prone and semiprone position while patient is BiPAP dependent. Start patient on Lasix drip for resolving PAT. Monitor CBC in the evening again for resolving DIC. Goals of care discussion with family. Attestations Medical Necessity Statement*: Requires further hospitalization for management of ARDS, DIC, septic shock, PAT Time Spent in Patient Care: Greater than 35 minutes (>than 50% of time spent in counselling and/or direct pt care on unit) . 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 Sr. [employer] for [facility] Fwd Diagnoses Acute hypoxemic respiratory failure due to COVID-19 U07.1; J96.01 Septic shock A41.9; R65.21 Acute respiratory distress syndrome (ARDS) due to 2019 novel coronavirus U07.1; J80 Metabolic acidosis E87.2 PAT (acute kidney injury) N17.9 Thrombocytopenia D69.6 Anemia D64.9 Hypoglycemia E16.2 Protein-calorie malnutrition E46 Protein-calorie malnutrition severity: unspecified severity Gastroparesis K31.84 Opioid dependence F11.20 Substance use status: uncomplicated Agranulocytosis D70.9 DIC (disseminated intravascular coagulation) D65
[2020-03-01] MEDS: dexmedetomidine 400 MCG in sodium chloride 0.9% (100 ml) 100 ML 5.6 MCG IV (17:06)
[2020-03-01 22:15] LABS: Procalcitonin 99.93 ng/mL (0-0.5)
[2020-03-01 22:33] LABS: Albumin Level 2.5 g/dL (3.5-5.2); Alkaline Phosphatase 231 IU/L (35-105); Blood Urea Nitrogen 13 mg/dL (6-20); Calcium 7.5 mg/dL (8.5-10.5); Carbon Dioxide 22 mmol/L (22-29); Chloride 114 mmol/L (98-107); Globulin 1.8 g/dL (1.3-4.6); Glomerular Filtration Rate 53.5 mL/min (90-130); Glucose 331 mg/dL (65-115); Osmolality Calculated 329 mOsm/kg (285-295); Sodium 153 mmol/L (136-145); Total Bilirubin 2.4 mg/dL (0.15-1.2); Total Protein 4.3 g/dL (6.6-8.7)
[2020-03-01 22:37] LABS: Anion Gap 20.6 (5-19); Potassium 3.6 mmol/L (3.5-5.1)
[2020-03-01 22:45] LABS: Alanine Aminotransferase < 5 U/L (0-33); Aspartate Amino Transferase 5 U/L (0-32)
[2020-03-02] VITALS (29 sets, daily range): BP systolic 119–174; BP diastolic 87–124; PULSE 69–105; RESP 14–30; TEMP 36.5–37; O2SAT 24–100
[2020-03-02] MEDS: pantoprazole 40 mg SDV IVP ×2 (01:32→13:00)
[2020-03-02] MEDS: vancomycin 1,000 MG in sodium chloride 0.9% 250 ML 250 MG IV (01:33)
[2020-03-02 01:57] LABS: Glucose Point of Care 354 mg/dL (70-110)
[2020-03-02] MEDS: ipratropium-albuterol 3 mL Neb INHALATION ×6 (03:22→23:50)
[2020-03-02 04:14] LABS: Basophils % 0.3 %; Hematocrit 28.2 % (37.0-47.0); Hemoglobin 9.2 g/dL (11.5-15.3); Lymphocytes # 0.3 10^3/uL (0.8-4.8); Lymphocytes % 11.1 %; Mean Corpuscular HGB Conc 32.6 g/dL (30.0-36.0); Mean Corpuscular Hemoglobin 33.5 pg (28.0-34.0); Mean Corpuscular Volume 102.5 fL (81-99); Mean Platelet Volume 11.8 fL (7.4-10.4); Monocytes # 0.1 10^3/uL (0.2-0.9); Neutrophils # 2.62 10^3/uL (1.8-7.7); Neutrophils % 85.3 %; Nucleated Red Blood Cells % 0.7 %; Platelet Count 38 10^3/cmm (130-400); Red Blood Count 2.75 10^6/uL (4.1-5.3); Red Cell Distribution Width 21.1 % (12.1-15.1); White Blood Count 3.1 10^3/uL (4.0-10.0)
[2020-03-02 04:42] LABS: Alanine Aminotransferase 30 U/L (0-33); Albumin Level 2.7 g/dL (3.5-5.2); Alkaline Phosphatase 198 IU/L (35-105); Anion Gap 19.9 (5-19); Aspartate Amino Transferase 59 U/L (0-32); Blood Urea Nitrogen 14 mg/dL (6-20); C Reactive Protein 124.8 mg/L (0.0-4.9); Calcium 7.5 mg/dL (8.5-10.5); Carbon Dioxide 23 mmol/L (22-29); Chloride 116 mmol/L (98-107); Creatine Phosphokinase 107 U/L (26-192); Globulin 1.5 g/dL (1.3-4.6); Glomerular Filtration Rate 48.4 mL/min (90-130); Glucose 335 mg/dL (65-115); Osmolality Calculated 336 mOsm/kg (285-295); Sodium 156 mmol/L (136-145); Total Bilirubin 2.3 mg/dL (0.15-1.2); Total Protein 4.2 g/dL (6.6-8.7)
[2020-03-02 05:17] LABS: Ferritin 1494 ng/mL (15-150); Lactate Dehydrogenase 1345 U/L (135-214); Potassium 2.9 mmol/L (3.5-5.1)
[2020-03-02 05:41] LABS: Slide Review Slide Review Perform
[2020-03-02 06:35] LABS: Glucose Point of Care 270 mg/dL (70-110)
--- NOTE | 2020-03-02 06:56 | PC.NURSE ---
ASSUMING CARE Patient on 100% FiO2 on BIPAP all night with saturations in the 80s. Patient has been on precedex at 0.3 this shift, lasix gtt at 20 mg/hour, TPN at 42 mL/hour, 21 mL/hour of fat emulsions. Patient responds to commands only and is lethargic.
--- NOTE | 2020-03-02 07:08 | PC.NURSE ---
OXYGEN DESAT Patient on BIPAP at 100%. Patient desatting most of shift to low 70s and mid 80s. Respiratory notified, pulse ox probe changed and patients waveform accurate. Patient turned to right side as she was not tolerating her left side well.
--- NOTE | 2020-03-02 07:10 | PC.NURSE ---
BLOOD SUGAR Blood sugar was 354 with no sliding scale insulin ordered. Dr. Ruiz called and gave order for low dose sliding scale insulin Q4H.
--- NOTE | 2020-03-02 07:25 | PC.NURSE ---
POTASSIUM Patients potassium 2.9. Dr. Ruiz called and gave order for 60 mEq potassium chloride IV.
--- NOTE | 2020-03-02 07:26 | PC.NURSE ---
BIPAP Patients BIPAP alarming. Patient had pulled BIPAP off face. Patients oxygen in the 50s, patient appears jaundiced, and has scleral edema. Patients BIPAP put back on and FiO2 turned back up to 100%.
[2020-03-02] MEDS: FUROsemide 200 MG in sodium chloride 0.9% (100 ml) 80 ML 10 MG IV (08:00)
[2020-03-02] MEDS: budesonide 0.5 mg/2 mL Neb INHALATION ×2 (08:48→20:44)
[2020-03-02 08:49] LABS: Glucose Point of Care 142 mg/dL (70-110)
[2020-03-02] MEDS: azithromycin 500 MG in sodium chloride 0.9% 250 ML 250 MG IV (09:28)
--- NOTE | 2020-03-02 11:20 | PC.NURSE ---
1000- PT HAS BEEN PULLING AT BIPAP MASK ALL MORNING. THIS TIME SHE GOT IT OFF, DESATURATES INTO THE 30'S WITHIN APPROXIMATELY <[address] SMITH NOTIFIED. WILL CONTINUE TO MONITOR. SITTER ORDERED TO KEEP PT FROM PULLING MASK OFF AGAIN.
[2020-03-02] MEDS: LORazepam 2 mg/mL INJ 1 mL 0.25 MG IVP (13:00)
[2020-03-02 13:24] LABS: Glucose Point of Care 82 mg/dL (70-110)
[2020-03-02 13:43] LABS: Ammonia 108 umol/L (11-51)
[2020-03-02 14:11] LABS: Blood Gas Operator Identificat PE
[2020-03-02] MEDS: dexmedetomidine 400 MCG in sodium chloride 0.9% (100 ml) 100 ML 13.1 MCG IV (14:30)
--- NOTE | 2020-03-02 16:49 | PM.CONSULT ---
Providers/Reason For Consult Consulting Physican/Specialty*: Branden Queen MD/Pulmonary critical care Reason for Consult*: Acute respiratory failure secondary to covid 19 and underlying sepsis Attending Physician: Jr Celeste Primary Care Provider: Rosi Shell NP History of Present Illness History of Present Illness Therese Schaefer is a 44 year old female with past history of anastomotic ulcer s/p gastric bypass, posttraumatic stress disorder, generalized anxiety, hypertension, major depressive disorder, history of chronic pancreatitis, gastroparesis on Adriamycin, nephrolithiasis, protein Calorie malnutrition due to poor p.o. intake being considered for PEG as outpatient, recent admission in early February 2020 for hematemesis (EGD without bleeding source) and acute liver failure likely due to Tylenol poisoning which prompted transfer to [facility]. Patient came to emergency room 02/27/2020 with shortness of breath and hypoxia requiring 15 L in the emergency room then quickly escalated to high flow in ER and then BiPAP currently requiring 95% FiO2. In the ED patient Covid antigen is positive and chest x-ray showed bilateral diffuse infiltrates consistent with ARDS, elevated inflammatory markers, initially requiring Levophed after failing fluid resuscitation. Pulmonary: Critical care consult called due to high requirement of FiO2 and DIC. Today patient seen at bedside on BiPAP 16/12 and 90% FiO2. Patient is sedated on Precedex and is on Lasix drip. Review of Systems General: Reports: ROS unobtainable due to endotracheal tube, ROS unobtainable due to medical condition and ROS unobtainable due to mental status Meds/Allergies Home Medications and Allergies Home Medications Medication Instructions Recorded Confirmed Last Taken Type sucralfate 1 g PO TID 06/21/19 02/26/20 02/26/20 History acetaminophen [Tylenol Extra 500 - 1,000 mg PO Q6H PRN 07/10/19 02/26/20 02/26/20 History Strength] metoprolol tartrate 25 mg PO BID 09/05/19 02/26/20 02/26/20 History multivitamin [Multiple Vitamins] 1 tab PO DAILY 09/05/19 02/26/20 02/26/20 History tramadol [Ultram] 50 mg PO Q8H PRN #14 tab 12/18/19 02/26/20 02/26/20 Rx dexlansoprazole 60 mg 60 mg PO BID #60 cap 12/24/19 02/26/20 02/26/20 Rx capsule,biphase delayed release dicyclomine 20 mg PO QID PRN 12/30/19 02/26/20 02/26/20 History potassium chloride 10 meq PO BID #30 cap 12/30/19 02/26/20 02/26/20 Rx lorazepam 1 mg tablet 1 mg PO TID PRN #90 tab 12/31/19 02/26/20 02/26/20 Rx trazodone 150 mg tablet 150 mg PO BEDTIME PRN #90 tab 12/31/19 02/26/20 02/25/20 Rx erythromycin 250 mg tablet 250 mg PO BID #60 tab 01/28/20 02/26/20 02/26/20 Rx promethazine See Rx Instructions .ROUTE .COMPLEX 02/03/20 02/26/20 02/03/20 History Celexa 20 mg PO DAILY 02/26/20 02/26/20 02/26/20 History clonazepam 1 mg PO TID 02/26/20 02/26/20 02/26/20 History Allergies Allergy/AdvReac Type Severity Reaction Status Date / Time ondansetron [From Zofran] Allergy Severe ALGY-Anaphy Verified 02/19/20 10:54 laxis baclofen Allergy Intermediate Hives Verified 02/19/20 10:54 codeine Allergy Intermediate rash/ felt Verified 02/19/20 10:54 antsy metoclopramide [From Reglan] Allergy Intermediate ALGY-Hives Verified 02/19/20 10:54 prochlorperazine AdvReac Severe ADR-Irritab Verified 02/19/20 10:54 [From Compazine] le promethazine [From Phenergan] AdvReac Severe ADR-Dry Verified 02/19/20 10:54 Mucus Membranes Current Medications Current Medications Generic Name Dose Route Start Last Admin Trade Name Freq PRN Reason Stop Dose Admin Albuterol/Ipratropium 3 ml 02/27/20 12:00 03/02/20 16:37 Ipratropium-Albuterol 3 Ml Neb INHALATION 3 ml Q4H.RESPIRATORY BONITA Administration Ascorbic Acid 500 mg 02/27/20 09:00 02/29/20 16:46 Ascorbic Acid 500 Mg Tablet PO Not Given BID BONITA Budesonide 0.5 mg 02/27/20 09:00 03/02/20 08:48 Budesonide 0.5 Mg/2 Ml Neb INHALATION 0.5 mg BID BONITA Administration Enoxaparin Sodium 70 mg 02/27/20 01:15 02/27/20 13:56 Enoxaparin 80 Mg/0.8 Ml Syringe SUBCUT 70 mg Q12H BONITA Administration Hydromorphone HCl 0.5 mg 02/27/20 14:26 03/01/20 12:42 Hydromorphone 1 Mg/Ml Inj 1 Ml IVP 0.5 mg Q6H PRN Administration PAIN Norepinephrine Bitartrate 4 mg 254 mls @ 0 mls/hr 02/26/20 21:00 02/29/20 07:00 / Dextrose IV 0 mcg/min .Q0M BONITA 0 mls/hr Titration Protocol Per Protocol Azithromycin 500 mg/ Sodium 250 mls @ 250 mls/hr 02/27/20 09:00 03/02/20 10:30 Chloride IV Infused DAILY BONITA Infusion Protocol Vancomycin HCl 1,000 mg/ 250 mls @ 250 mls/hr 03/01/20 02:00 03/02/20 06:17 Sodium Chloride IV Infused Q24H BONITA Infusion Dexmedetomidine HCl 400 mcg/ 104 mls @ 0 mls/hr 02/29/20 04:15 03/02/20 14:30 Sodium Chloride IV 0.7 mcg/kg/hr .Q0M BONITA 13.1 mls/hr Administration Protocol Per Protocol Furosemide 200 mg/ Sodium 50 mls @ 0 mls/hr 03/01/20 09:30 03/02/20 08:00 Chloride IV 40 mg/hr .Q0M BONITA 10 mls/hr Administration Protocol Per Protocol Amino Acids/Electrolytes 1,000 mls @ 42 mls/hr 03/01/20 11:00 03/02/20 02:17 Clinimix E 5%-20% IV Infused .[id number] BONITA Infusion Fat Emulsion Intravenous 250 mls @ 21 mls/hr 03/01/20 11:00 03/02/20 06:17 Intralipid 20% IV Infused Q24H BONITA Infusion Imipenem/Cilastatin Sodium 500 100 mls @ 200 mls/hr 03/01/20 16:00 03/02/20 10:00 mg/ Sodium Chloride IV Infused Q8H BONITA Infusion Protocol Insulin Aspart 0 unit 03/02/20 02:00 03/02/20 14:35 Insulin Aspart 100 Unit/1 Ml SUBCUT Not Given Q4H BONITA Protocol Lorazepam 0.25 mg 03/02/20 12:46 03/02/20 13:00 Lorazepam 2 Mg/Ml Inj 1 Ml IVP 0.25 mg NOW PRN Administration ANXIETY Methylprednisolone Sodium Succinate 125 mg 02/29/20 13:00 03/02/20 09:27 Methylprednisolone Sod Succ 125 Mg/2 Ml Inj IVP 125 mg Q8H BONITA Administration Pantoprazole Sodium 40 mg 02/27/20 01:15 03/02/20 13:00 Pantoprazole 40 Mg Sdv IVP 40 mg Q12H BONITA Administration Zinc Gluconate 50 mg 02/27/20 09:00 02/29/20 09:25 Zinc Gluconate 50 Mg Tablet PO Not Given DAILY BONITA PFSH Acute PFSH: Medical History Acute pancreatitis Acute pancreatitis Anastomotic ulcer S/P gastric bypass Chest pain Present, constant, pain with palpation consistent with musculoskeletal pain. Nuclear stress test negative. Echocardiogram preserved EF with no wall motion abnormalities Chronic post-traumatic stress disorder of child Elevated serum hCG Gastroparesis Generalized anxiety disorder Hypertension Major depressive disorder, recurrent severe without psychotic features Pneumonia due to 2019 novel coronavirus Recurrent pancreatitis Sepsis Vomiting blood Surgical History H/O esophagogastroduodenoscopy (~06/2019) H/O: hysterectomy History of partial gastrectomy Hx of cholecystectomy S/P appendectomy Family History Mother CAD (coronary artery disease) Other Hypertension Denies family history of Anesthesia complication Bleeding disorder Social History Smoking and tobacco status: former smoker Alcohol intake: never Adopted: No Caregiver/support person: Yes Lives independently: Yes Household members: family and children Housing: House Marital status: service: No Current occupational status: employed Current occupational exposures/hazards: No Pets and animals: No History of recent travel: No Sexually active: No Current gender identity: Female Teresa/Christian: Catholic Special teresa needs: No Agree to transfusion: No Financial difficulty paying for basics: Decline to Answer Vitals/I&O/Wt Last Vital Signs Temp 98.6 F 03/02/20 10:00 Pulse 79 03/02/20 16:36 Resp 16 03/02/20 16:36 BP 125/94 03/02/20 12:00 Pulse Ox 92 03/02/20 16:36 03/02/20 03/02/20 03/02/20 06:59 14:59 22:59 Intake Total 1600 / 2714 554 / 554 Output Total 1400 / 3500 Balance 200 / -786 554 / 554 Weight last 48 hrs Weight 177 lb 8.64 oz Weight 191 lb 12.8 oz Physical Exam Narrative: EXAM NARRATIVE: PHYSICAL EXAM: General: lying in bed, sedated and intubated. HEENT:NCAT, PERRLA, EOMI Neck: Supple Lungs: Clear, Heart: s1/s2, RRR Abd: soft, NT, ND, BS + Normoactive Extremities: No edema REGIONAL EDUCATION MANAGER: sedated and limited REGIONAL EDUCATION MANAGER exam possible. SKIN: no rash LDA: # CVC: Right IJ 02/27/2020 # Dai: 02/27/2020 # A line: Urinary Catheter Management^: Dai: Cath Placed During This Visit: yes Reason for Continuing Indwelling Catheter: Accurate Measurement of Urinary Output in Critically Ill Patients Urinary Catheter Date of Insertion: 02/27/20 Urinary Catheter Time of Insertion: 01:30 Data Other Data: Other data: Labs, imaging, other investigations in [employer] A&P Assessment and plan (1) Acute respiratory distress syndrome (ARDS) due to 2019 novel coronavirus: Status: Acute (2) DIC (disseminated intravascular coagulation): Status: Acute (3) Thrombocytopenia: Status: Acute (4) Protein-calorie malnutrition: Status: Acute Qualifiers: Protein-calorie malnutrition severity: unspecified severity Qualified Code(s): E46 - Unspecified protein-calorie malnutrition (5) Hepatic encephalopathy: Status: Acute (6) Hypernatremia: Status: Acute Therese Schaefer is a 44 year old female with past history of anastomotic ulcer status post gastric bypass, posttraumatic stress disorder, general anxiety, HTN, major depressive disorder, history of chronic pancreatitis, gastroparesis on erythromycin, nephrolithiasis, protein calorie malnutriion due to poor po intake being considered for PEG as outpatient, recent admission in early February for hemetemesis (EGD without bleeding source) and acute liver failure admitted to the ICU for acute hypoxic respiratory failure secondary to ARDS due to COVID-19 pneumonia and noted to be in DIC due to septic shock. NEURO: # altered mental status - Metabolic + medication induced # Hepatic encephalopathy # Hypernatremia - also on Sedation: -On Precedex - also ammonia 108 with recent history of liver failure - lactulose 30 mg through [place] every 6 hr to target atleeast 2-3 soft bowel movements - Hypernatremia - 156 : will start on D5w@ 75cc and repeat BMP in 4-6 hrs = target Na 146 in 24 hrs PULM: # Acute hypoxic and hypercapneic respiratory failure secondary to COVID pna -remdesivir, stress dose steroids, broad-spectrum antibiotics, -On BiPAP 18/03 and FiO2 90% saturating 91% -ABG today morning 7.3 // on BiPAP 100% -Chest x-ray 03/01/2020:Interval improvement in the right upper lung disease, but worsening of the right lower lung disease. No significant change in the disease involving most of the left lung. -CT chest 02/26/2020:1. Dense confluent consolidations throughout parenchyma of the lungs and near entirety of involvement. 2. Free layering bilateral pleural effusions.3. Small pericardial effusion. 4. Collection of subcutaneous soft tissue gas near the right internal jugular catheter entrance site and additional elongated collection of gas within and along the margin of right biceps musculature of the right upper extremity. Small adjacent fluid collection of the distal biceps muscle margin. -Prone to semiprone position as possible. -Aggressive pulmonary toilet with chest vest, if possible with incentive spirometry and flutter valve. CVS: # Septic Shock: Not responding to fluid challenge. - Off pressors. Continue to monitor blood pressure, urine output, heart rate. - currently on lasix 10 drip - Can DC albumin GI: - On TPN -History of gastroparesis resulting in malnutrition high risk for aspiration # Transaminitis -2/2 possibly secondary to sepsis # Recent acute liver injury due to ?/ tylenol # Elevated bilirubin and Ammonia - lactulose 30 mg [place] q 6 hr - target 2-3 soft bm/day -Trend LFT's -Abdominal U/S if continue to trend up RENAL: #PAT -likely prerenal due to septic shock-improving #Hypokalemia due to lasix - monitor and replace # Hypernatremia - likely due to dehydration - started on D5W@75 cc and moniotor Na and k in next BMP at 10 pm and adjust D5w - Target drop in Na to 146 by tomorrow 4 pm . - Supplement kcl 60 meq x 2 doses; monitor in next BMP and supplement accordingly -Monitor input and output. He has been -2.5 L for the last 2 days on Lasix drip -DC'd Lasix drip and if patient does not make urine can give Lasix 40 mg x 1 dose - Continue dai cath -Avoid nephrotoxins -Replace lytes prn - PLEASE CALL RENAL CONSULT HEM: #DIC secondary to sepsis #Deranged coagulopathy and thrombocytopenia likely due to DIC # drop in h & h to 6.5/21.7 on 02/28/2020 # likely due to microcytic/hemolytic anemia secondary to DIC with underlying sepsis - S/p transfusion and hemoglobin improved and stayed stable, today 9.2/28 -S/p FFP and platelet transfusions -Please send folate and B12 -Monitor platelets; hold anticoagulation and send for HIT antibodies as well -Monitor coagulation parameters ENDO: -Sugars well controlled -Started on D5 at 75 cc to correct hyponatremia-monitor sugars closely and adjust sliding scale accordingly - POCT Q6H ID: # Severe sepsis secondary to COVID pna #WBC dropped to 3.1 can patient afebrile -Cultures negative so far -Off pressors -CT chest 02/26/2020:1. Dense confluent consolidations throughout parenchyma of the lungs and near entirety of involvement. 2. Free layering bilateral pleural effusions.3. Small pericardial effusion. 4. Collection of subcutaneous soft tissue gas near the right internal jugular catheter entrance site and additional elongated collection of gas within and along the margin of right biceps musculature of the right upper extremity. Small adjacent fluid collection of the distal biceps muscle margin. -Ordered ultrasound-if any abscess needs to be drained for source control CT abdomen pelvis 02/26/2020- 1. Progression of anasarca. Mild increased small volume abdominal ascites.2. Wall thickening of prominent segments of near the entirety of the right colon and left colon suggestive of nonspecific colitis. 3. Rush of small bowel partially containing fluid and gas with a few segments suggesting mucosal edema or wall thickening which may indicate a non-specific enteritis and ileus without obstructive dilatation. -Procalcitonin 99 suggestive of bacterial and atypical Legionella blood cultures and urine antigens are negative so far -On empiric vancomycin and imipenem and azithromycin to broadly cover gram-positive's, gram-negative's anaerobes and atypicals CODE STATUS DNR/DNI Continue aggressive treatment for ARDS with remdesivir, stress dose steroids, broad-spectrum antibiotics, prone and semiprone position while patient is BiPAP dependent. No altered mental status secondary to medication with underlying hepatic encephalopathy and hypERnatremia. Placed on D5 and will monitor her sodium; supplement and monitor potassium, will DC Lasix drip as patient is making good amount of urine and will involve renal if patient does not make adequate urine output. We will continue to cover with broad-spectrum antibiotics vancomycin and imipenem and azithromycin. We will send for cultures as procalcitonin is 99 patient is not in renal failure Recommendations conveyed to hospitalist taking care of the patient Consult Attestations Medical Necessity Statement: Requires further hospitalization for management of ARDS due to COVID-19 pneumonia, DIC due to sepsis, altered mental status secondary to hypERnatremia/hepatic encephalopathy/medication induced and management of PAT Time Spent in Patient Care: Greater than 35 minutes (>than 50% of time spent in counselling and/or direct pt care on unit). Critical Care Time: Critical Care Time (min): 45 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 of Care Code New Pt Acute Aircraft Tool Maker for Chg Fwd Patient Type New History Comprehensive Exam Comprehensive Medical Decision Making High Complexity Diagnoses Acute respiratory distress syndrome (ARDS) due to 2019 novel coronavirus U07.1; J80 DIC (disseminated intravascular coagulation) D65 Thrombocytopenia D69.6 Protein-calorie malnutrition E46 Protein-calorie malnutrition severity: unspecified severity Hepatic encephalopathy K72.90 Hypernatremia E87.0 Time Spent (min) 45
[2020-03-02] MEDS: AA-Dex 5%-20% w/Lytes 1,000 ML 42 ML IV (17:21)
[2020-03-02 17:41] LABS: Glucose Point of Care 49 mg/dL (70-110)
[2020-03-02 17:41] LABS: Glucose Point of Care 105 mg/dL (70-110)
[2020-03-02] MEDS: dextrose 5% 1,000 ML 75 ML IV (18:01)
[2020-03-02 19:18] LABS: INR 2.13 (0.8-1.2)
[2020-03-02 19:28] LABS: D Dimer 15.24 ug/mIFEU (0-0.59)
[2020-03-02 19:45] LABS: Vitamin B12 1594 pg/mL (232-1245)
--- NOTE | 2020-03-02 20:44 | P.PN_ITS ---
Subjective Subjective: Interval history: Earlier confused, pulled off her BiPAP mask, at that time desaturated down to noted 38%. During my visit appears to be compliant with BiPAP. Awake, appears to mouth/weakly voice her name when asked. Appears to attempt to answer some questions, although does not appear to be nodding consistently. Vitals/I&O/Wt Last Vital Signs Temp 98.6 F 03/02/20 10:00 Pulse 78 03/02/20 18:00 Resp 18 03/02/20 18:00 BP 165/112 03/02/20 18:00 Pulse Ox 85 L 03/02/20 18:00 03/02/20 03/02/20 03/02/20 06:59 14:59 22:59 Intake Total 1600 / 2714 554 / 554 100 / 654 Output Total 1400 / 3500 550 / 550 Balance 200 / -786 554 / 554 -450 / 104 Weight last 48 hrs Weight 80.531 kg Weight 86.999 kg Physical Exam Const: COMMON NORMALS: no acute distress ORIENTATION/CONSCIOUSNESS: Yes awake and Yes confused HENMT: COMMON NORMALS: oropharynx normal Neck/C-Spine: COMMON NORMALS: no JVD Resp: COMMON NORMALS: normal respiratory effort and clear to auscultation bilaterally AUSCULTATION: clear to auscultation bilaterally and diminished lung sounds Cardio: COMMON NORMALS: no JVD, regular rhythm, S1 normal heart sound present, S2 normal heart sound present and No murmurs present (Cardio) RHYTHM: regular rhythm HEART SOUNDS: S1 normal heart sound present and S2 normal heart sound present GI: COMMON NORMALS: Normal to inspection, nondistended, normoactive bowel sounds present, Soft to palpation and non-tender PALPATION: Yes Soft to p alpation Extremity: COMMON NORMALS: no joint enlargement and no pedal edema Neuro: COMMON NORMALS: moves all extremities Skin: COMMON NORMALS: no rashes or lesions noted GENERAL SKIN EXAM: no rashes or lesions noted Urinary Catheter Management^: [place]: Cath Placed During This Visit: yes Reason for Continuing Indwelling Catheter: Accurate Measurement of Urinary Output in Critically Ill Patients Urinary Catheter Date of Insertion: 02/27/20 Urinary Catheter Time of Insertion: 01:30 Data : 03/02/20 03:20 03/02/20 03:20 Micro: Microbiology 03/02/20 18:40 Blood Culture - Preliminary Blood SPECIMEN COLLECTED 03/02/20 18:30 Blood Culture - Preliminary Blood SPECIMEN COLLECTED A&P Assessment and plan (1) Acute hypoxemic respiratory failure due to COVID-19: Persistent hypoxic respiratory failure, with acute encephalopathy, generally weak, requiring BiPAP support, 100% FiO2. Requiring Precedex infusion for sedation. Intermittent small doses of Ativan added. Overall a very severe condition, with a very high risk of mortality. Discussed with her mother. Continue Solu-Medrol. Continue empiric antibiotics at this time with broad-spectrum coverage. Checked ammonia and this is elevated. Consideration of contribution of hepatic encephalopathy. Started on as NE lactulose. Status: Acute (2) Septic shock: Severe COVID-19/life-threatening infection, septic shock, complicated by DIC. Clinically does not appear to have bleeding on exam today. Hemoglobin appears stabilized around 9. Platelets are lower today at 38,000. Discussed with intensive care. Will order culture. Additional assessment requested for fluid collection noted on CT in the right bicep, as well as with some air along the margin to assess for any occult harbors of infection. Ultrasound requested. Continue broad-spectrum antibiotic antibiotics at this time. Condition and medical problems, plan of additional cyst management discussed w ith her mother. Status: Acute (3) Acute respiratory distress syndrome (ARDS) due to 2019 novel coronavirus: As above. Status: Acute (4) PAT (acute kidney injury): Noted decreased urine output today, creatinine with slight worsening to 1.2. Worse hypernatremia with free water deficit. Started on gentle hydration by water resources engineer. Monitor electrolytes. Monitor urine output. If not improving consider trial of stress dose of Lasix. Status: Acute (5) Thrombocytopenia: With worsening today. Additional assessment to see if any pockets of infe ction in the right bicep. Continue empiric antibiotics, treatment of sepsis. Monitor for any bleeding. Status: Acute (6) Anemia: Check B12, folic acid. Status: Acute (7) Metabolic acidosis: Status: Acute (8) Hypoglycemia: Monitor. Status: Acute (9) Agranulocytosis: Status: Acute (10) DIC (disseminated intravascular coagulation): Monitor. Treat underlying conditions. Supplement as needed. Recheck fibrinogen, D-dimer level, PTT and PT appear better today. D-dimer is higher. Continue therapeutic Lovenox. Monitor for bleeding. Status: Acute (11) Hypernatremia: Started on D5W. Monitor sodium. Target sodium no less than 146 tomorrow at 4 PM. Status: Acute (12) Hepatic encephalopathy: NE lactulose. Recheck ammonia. Status: Acute (13) Protein-calorie malnutrition: TPN Status: Acute Qualifiers: Protein-calorie malnutrition severity: unspecified severity Qualified Code(s): E46 - Unspecified protein-calorie malnutrition (14) Opioid dependence: Status: Acute Qualifiers: Substance use status: uncomplicated Qualified Code(s): F11.20 - Opioid dependence, uncomplicated (15) Gastroparesis: Status: Acute (16) Hypokalemia: Replaced. Status: Acute Additional A&P Information Septic Shock: Resolved. Off pressors. As above for sepsis. Recent echo EF 60%, no RWMA, gr 1 diastolic dysfunction from 04/2019 Lipase not elevated, CT abdomen non specific colitis Hypocalcemia: Corrected with albumin. Transmainitis, LFTs elevated but improved over early Nov Gastroparesis, poor po intake resulting in malnutrition, NPO for now, high risk for aspiration Attestations Medical Necessity Statement*: Continue admission for assessment management of hypoxic respiratory failure due to life-threatening COVID-19 infection with sepsis, DIC and a number of comorbidities as above. 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 [employer]vel Screener for [facility] Diagnoses Acute hypoxemic respiratory failure due to COVID-19 U07.1; J96.01 Septic shock A41.9; R65.21 Acute respiratory distress syndrome (ARDS) due to 2019 novel coronavirus U07.1; J80 PAT (acute kidney injury) N17.9 Thrombocytopenia D69.6 Anemia D64.9 Metabolic acidosis E87.2 Hypoglycemia E16.2 Agranulocytosis D70.9 DIC (disseminated intravascular coagulation) D65 Hypernatremia E87.0 Hepatic encephalopathy K72.90 Protein-calorie malnutrition E46 Protein-calorie malnutrition severity: unspecified severity Opioid dependence F11.20 Substance use status: uncomplicated Gastroparesis K31.84 Hypokalemia E87.6
[2020-03-02 21:45] LABS: Fibrinogen 176 mg/dL (174-498)
[2020-03-02] MEDS: dexmedetomidine 400 MCG in sodium chloride 0.9% (100 ml) 100 ML 11.2 MCG IV (22:27)
[2020-03-02] MEDS: potassium chloride premix 100 ML 50 MEQ IV (23:03)
[2020-03-02 23:24] LABS: Glucose Point of Care 318 mg/dL (70-110)
[2020-03-03] VITALS (36 sets, daily range): BP systolic 124–166; BP diastolic 89–116; PULSE 66–91; RESP 14–26; TEMP 36.2–37.1; O2SAT 83–100
[2020-03-03 00:05] LABS: Anion Gap 17.8 (5-19); Blood Urea Nitrogen 19 mg/dL (6-20); Calcium 7.8 mg/dL (8.5-10.5); Carbon Dioxide 28 mmol/L (22-29); Chloride 114 mmol/L (98-107); Glomerular Filtration Rate 53.5 mL/min (90-130); Glucose 344 mg/dL (65-115); Osmolality Calculated 340 mOsm/kg (285-295); Sodium 157 mmol/L (136-145)
[2020-03-03 00:24] LABS: Potassium 2.8 mmol/L (3.5-5.1)
[2020-03-03] MEDS: potassium chloride premix 100 ML 50 MEQ IV ×2 (00:56→04:10)
[2020-03-03] MEDS: pantoprazole 40 mg SDV IVP ×2 (00:58→12:19)
[2020-03-03 01:24] LABS: Folate Level 4.1 ng/mL (4.8-37.3)
[2020-03-03 03:04] LABS: Glucose Point of Care 227 mg/dL (70-110)
[2020-03-03] MEDS: vancomycin 1,000 MG in sodium chloride 0.9% 250 ML 250 MG IV (03:27)
[2020-03-03] MEDS: lactulose oral liq 20 gm/30 mL UDC 200 GM PR ×2 (04:09→13:45)
[2020-03-03] MEDS: ipratropium-albuterol 3 mL Neb INHALATION ×6 (04:11→23:25)
[2020-03-03 04:44] LABS: INR 1.94 (0.8-1.2)
[2020-03-03 04:58] LABS: C Reactive Protein 144.3 mg/L (0.0-4.9); Creatine Phosphokinase 103 U/L (26-192); Sodium 158 mmol/L (136-145)
[2020-03-03 05:13] LABS: Ferritin 1540 ng/mL (15-150); Lactate Dehydrogenase 1175 U/L (135-214)
[2020-03-03 05:22] LABS: Fibrinogen 173 mg/dL (174-498)
[2020-03-03 05:30] LABS: D Dimer 12.56 ug/mIFEU (0-0.59)
--- NOTE | 2020-03-03 06:00 | XRR_ITS ---
PROCEDURE INFORMATION: Exam: XR Chest, 1 View Exam date and time: 03/03/2020 6:52 AM Age: 44 years old Clinical indication: Shortness of breath; Additional info: Covid TECHNIQUE: Imaging protocol: XR of the chest Views: 1 view. COMPARISON: CR (CHEST, ) 03/01/2020 4:36 AM FINDINGS: Tubes, catheters and devices: Central venous catheter via the right jugular approach with the tip projecting over the atrium. Lungs: Patchy diffuse interstitial and alveolar airspace disease most pronounced within the left lower lobe. Edema and/or pneumonia. Pleural space: Unremarkable. No pleural effusion. No pneumothorax. Heart/Mediastinum: Unremarkable. No cardiomegaly. Bones/joints: Unremarkable. XR/XR chest 1V portable 12700 IMPRESSION: Patchy diffuse interstitial and alveolar airspace disease most pronounced within the left lower lobe. Edema and/or pneumonia. Findings consistent with the given history.
[2020-03-03 06:29] LABS: Glucose Point of Care 157 mg/dL (70-110)
--- NOTE | 2020-03-03 07:03 | PC.NURSE ---
ASSUMING CARE Patient on BIPAP at 100% and 16/12 pressures. Patient on 0.7 mcg/kg/hour of precedex, 75 mL/ hour dextrose 5%. Patient sleeping and does not appear in pain at this time.
--- NOTE | 2020-03-03 07:07 | PC.NURSE ---
O2 Patients oxygen has been in the mid to low 80s this shift and has not desaturated.
--- NOTE | 2020-03-03 07:07 | PC.NURSE ---
RECTAL TUBE Rectal tube inserted per instructions in lactulose order. Currently clamped after remainder of lactulose inserted. Patients stool is dark orange colored and mucoid.
--- NOTE | 2020-03-03 07:09 | PC.NURSE ---
SHIFT SUMMARY Patients been on BIPAP this shift at 100% and 16/12 pressures. Dextrose 5% at 75 mL/hour. 1500 mL urine output this shift. Patient has appeared comfortable, had a bath and linen change and rectal tube inserted with lactulose administration.
[2020-03-03] MEDS: dextrose 5% 1,000 ML 75 ML IV ×2 (07:18→17:44)
[2020-03-03] MEDS: budesonide 0.5 mg/2 mL Neb INHALATION ×2 (08:10→20:23)
[2020-03-03] MEDS: azithromycin 500 MG in sodium chloride 0.9% 250 ML 250 MG IV (08:49)
[2020-03-03] MEDS: sodium chloride 0.9% (100 ml) 100 ML (09:00)
[2020-03-03] MEDS: lidocaine 1% 5 ML in potassium chloride premix 100 ML 50 ML IV ×2 (09:18→10:26)
[2020-03-03] MEDS: dexmedetomidine 400 MCG in sodium chloride 0.9% (100 ml) 100 ML 11.2 MCG IV ×2 (09:19→19:44)
[2020-03-03 09:53] LABS: Glucose Point of Care 119 mg/dL (70-110)
[2020-03-03 10:24] LABS: Magnesium 1.4 mg/dL (1.7-2.3); Sodium 157 mmol/L (136-145)
[2020-03-03] MEDS: AA-Dex 5%-20% w/Lytes 1,000 ML 42 ML IV (10:51)
--- NOTE | 2020-03-03 13:17 | US_ITS ---
WS: [id number] INDICATION: Ultrasound soft tissue TECHNIQUE: Ultrasound soft tissue right biceps FINDINGS: Ultrasound to area of concern right biceps area. No evidence of drainable abscess or fluid collection. Subcutaneous edema. No other significant findings. US/US soft tissue/extremity [id number] IMPRESSION: No drainable abscess or fluid collection.
[2020-03-03] MEDS: magnesium sulfate premix 4 GM/100 ML PREMIX IV (16:04)
[2020-03-03 16:10] LABS: Glucose Point of Care 290 mg/dL (70-110)
--- NOTE | 2020-03-03 17:30 | P.CONIM_ITS ---
Providers/Reason For Consult Consulting Physican/Specialty*: Nephrology Reason for Consult*: Evalaution for hypernatremia Attending Physician: Jr Celeste Primary Care Provider: Rosi Shell NP History of Present Illness History of Present Illness Therese Schaefer is a 44 year old female who presented on 02/27/20, with SOB, found to have COVID. Currently admitted to the VICU. Being treated with FiO2 100% on BIPAP. Received Lasix until yesterday. Also receiving Lactulose rectally with moderate stool output. Urine output measured at 1700mL yesterday and 400mL so far today. She is being treated with Clinimix and Lipid concentrate. She is receiving Vanco, Primaxin, Azithromycin, Solumedrol. Past history of anastomotic ulcer s/p gastric bypass, posttraumatic stress disorder, generalized anxiety, hypertension, major depressive disorder, history of chronic pancreatitis, gastroparesis on Adriamycin, nephrolithiasis, protein Calorie malnutrition due to poor p.o. intake being considered for PEG as outpatient, recent admission in early February 2020 for hematemesis and liver failure from Tylenol. Sodium has remained high at 157 for the last 48hrs. She has received D5w at 75mL, slightly higher rate today temporarily but this was reduced back to 74mL this afternoon. Creatinine has remained at 1.1mg/dL. Review of Systems General: Reports: ROS unobtainable due to medical condition Meds/Allergies Home Medications and Allergies Home Medications Medication Instructions Recorded Confirmed Last Taken Type sucralfate 1 g PO TID 06/21/19 02/26/20 02/26/20 History acetaminophen [Tylenol Extra 500 - 1,000 mg PO Q6H PRN 07/10/19 02/26/20 02/26/20 History Strength] metoprolol tartrate 25 mg PO BID 09/05/19 02/26/20 02/26/20 History multivitamin [Multiple Vitamins] 1 tab PO DAILY 09/05/19 02/26/20 02/26/20 History tramadol [Ultram] 50 mg PO Q8H PRN #14 tab 12/18/19 02/26/20 02/26/20 Rx dexlansoprazole 60 mg 60 mg PO BID #60 cap 12/24/19 02/26/20 02/26/20 Rx capsule,biphase delayed release dicyclomine 20 mg PO QID PRN 12/30/19 02/26/20 02/26/20 History potassium chloride 10 meq PO BID #30 cap 12/30/19 02/26/20 02/26/20 Rx lorazepam 1 mg tablet 1 mg PO TID PRN #90 tab 12/31/19 02/26/20 02/26/20 Rx trazodone 150 mg tablet 150 mg PO BEDTIME PRN #90 tab 12/31/19 02/26/20 02/25/20 Rx erythromycin 250 mg tablet 250 mg PO BID #60 tab 01/28/20 02/26/20 02/26/20 Rx promethazine See Rx Instructions .ROUTE .COMPLEX 02/03/20 02/26/20 02/03/20 History Celexa 20 mg PO DAILY 02/26/20 02/26/20 02/26/20 History clonazepam 1 mg PO TID 02/26/20 02/26/20 02/26/20 History Allergies Allergy/AdvReac Type Severity Reaction Status Date / Time ondansetron [From Zofran] Allergy Severe ALGY-Anaphy Verified 02/19/20 10:54 laxis baclofen Allergy Intermediate Hives Verified 02/19/20 10:54 codeine Allergy Intermediate rash/ felt Verified 02/19/20 10:54 antsy metoclopramide [From Reglan] Allergy Intermediate ALGY-Hives Verified 02/19/20 10:54 prochlorperazine AdvReac Severe ADR-Irritab Verified 02/19/20 10:54 [From Compazine] le promethazine [From Phenergan] AdvReac Severe ADR-Dry Verified 02/19/20 10:54 Mucus Membranes Current Medications Current Medications Generic Name Dose Route Start Last Admin Trade Name Freq PRN Reason Stop Dose Admin Albuterol/Ipratropium 3 ml 02/27/20 12:00 03/03/20 15:50 Ipratropium-Albuterol 3 Ml Neb INHALATION 3 ml Q4H.RESPIRATORY BONITA Administration Ascorbic Acid 500 mg 02/27/20 09:00 02/29/20 16:46 Ascorbic Acid 500 Mg Tablet PO Not Given BID BONITA Budesonide 0.5 mg 02/27/20 09:00 03/03/20 08:10 Budesonide 0.5 Mg/2 Ml Neb INHALATION 0.5 mg BID BONITA Administration Enoxaparin Sodium 70 mg 02/27/20 01:15 02/27/20 13:56 Enoxaparin 80 Mg/0.8 Ml Syringe SUBCUT 70 mg Q12H BONITA Administration Hydromorphone HCl 0.5 mg 02/27/20 14:26 03/01/20 12:42 Hydromorphone 1 Mg/Ml Inj 1 Ml IVP 0.5 mg Q6H PRN Administration PAIN Norepinephrine Bitartrate 4 mg 254 mls @ 0 mls/hr 02/26/20 21:00 02/29/20 07:00 / Dextrose IV 0 mcg/min .Q0M BONITA 0 mls/hr Titration Protocol Per Protocol Azithromycin 500 mg/ Sodium 250 mls @ 250 mls/hr 02/27/20 09:00 03/03/20 10:51 Chloride IV Infused DAILY BONITA Infusion Protocol Vancomycin HCl 1,000 mg/ 250 mls @ 250 mls/hr 03/01/20 02:00 03/03/20 07:23 Sodium Chloride IV Infused Q24H BONITA Infusion Dexmedetomidine HCl 400 mcg/ 104 mls @ 0 mls/hr 02/29/20 04:15 03/03/20 09:19 Sodium Chloride IV 0.6 mcg/kg/hr .Q0M BONITA 11.2 mls/hr Administration Protocol Per Protocol Amino Acids/Electrolytes 1,000 mls @ 42 mls/hr 03/01/20 11:00 03/03/20 10:51 Clinimix E 5%-20% IV 42 mls/hr .[id number] BONITA Administration Fat Emulsion Intravenous 250 mls @ 21 mls/hr 03/01/20 11:00 03/03/20 10:51 Intralipid 20% IV 21 mls/hr Q24H BONITA Administration Imipenem/Cilastatin Sodium 500 100 mls @ 200 mls/hr 03/01/20 16:00 03/03/20 17:00 mg/ Sodium Chloride IV Infused Q8H BONITA Infusion Protocol Dextrose 1,000 mls @ 75 mls/hr 03/02/20 17:15 03/03/20 12:33 D5w IV 100 mls/hr .[id number] BONITA Infusion Insulin Aspart 0 unit 03/02/20 02:00 03/03/20 16:09 Insulin Aspart 100 Unit/1 Ml SUBCUT 8 unit Q4H BONITA Administration Protocol Lactulose 200 gm 03/02/20 19:07 03/03/20 13:45 Lactulose Oral Liq 20 Gm/30 Ml Udc OR 200 gm Q6H PRN Administration Encephalopathy Lorazepam 0.25 mg 03/02/20 12:46 03/02/20 13:00 Lorazepam 2 Mg/Ml Inj 1 Ml IVP 0.25 mg NOW PRN Administration ANXIETY Methylprednisolone Sodium Succinate 125 mg 02/29/20 13:00 03/03/20 16:04 Methylprednisolone Sod Succ 125 Mg/2 Ml Inj IVP 125 mg Q8H BONITA Administration Pantoprazole Sodium 40 mg 02/27/20 01:15 03/03/20 12:19 Pantoprazole 40 Mg Sdv IVP 40 mg Q12H BONITA Administration Zinc Gluconate 50 mg 02/27/20 09:00 02/29/20 09:25 Zinc Gluconate 50 Mg Tablet PO Not Given DAILY BONITA PFSH Acute PFSH: Medical History Acute pancreatitis Acute pancreatitis Anastomotic ulcer S/P gastric bypass Chest pain Present, constant, pain with palpation consistent with musculoskeletal pain. Nuclear stress test negative. Echocardiogram preserved EF with no wall motion abnormalities Chronic post-traumatic stress disorder of child Elevated serum hCG Gastroparesis Generalized anxiety disorder Hypertension Major depressive disorder, recurrent severe without psychotic features Pneumonia due to 2019 novel coronavirus Recurrent pancreatitis Sepsis Vomiting blood Surgical History H/O esophagogastroduodenoscopy (~06/2019) H/O: hysterectomy History of partial gastrectomy Hx of cholecystectomy S/P appendectomy Family History Mother CAD (coronary artery disease) Other Hypertension Denies family history of Anesthesia complication Bleeding disorder Social History Smoking and tobacco status: former smoker Alcohol intake: never Adopted: No Caregiver/support person: Yes Lives independently: Yes Household members: family and children Housing: House Marital status: service: No Current occupational status: employed Current occupational exposures/hazards: No Pets and animals: No History of recent travel: No Sexually active: No Current gender identity: Female Teresa/Holiness: Congregational Special teresa needs: No Agree to transfusion: No Financial difficulty paying for basics: Decline to Answer Vitals/I&O/Wt Last Vital Signs Temp 98.2 F 03/03/20 12:00 Pulse 88 03/03/20 16:06 Resp 16 03/03/20 16:05 BP 158/113 03/03/20 16:00 Pulse Ox 94 03/03/20 16:06 03/03/20 03/03/20 03/03/20 06:59 14:59 22:59 Intake Total 294.167 / 8928.379 2322.00 / 3079.00 100 / 3179.00 Output Total 1500 / 0 400 / 400 Balance -1205.833 / -724.158 7760.00 / 2679.00 100 / 2779.00 Weight last 48 hrs Weight 78.381 kg Weight 80.531 kg Physical Exam Narrative: EXAM NARRATIVE: Constitutional: Awake, difficult to converse with as dependant on high flow O2 BIAP HEENT: Wet mucosa, no jvp, non icteric Lungs: Bilaterally clear without discernible wheeze or rales in all lung zones CVS: S1 S2, no murmurs Abdo: Soft, BS ok Ext 4: 1-2+ in arms, 3+ in feet, no edema, peripheral perfusion with no cyanosis Neurological: Grossly non-focal Urinary Catheter Management^: Alcantara: Cath Placed During This Visit: yes Reason for Continuing Indwelling Catheter: Accurate Measurement of Urinary Output in Critically Ill Patients Urinary Catheter Date of Insertion: 02/27/20 Urinary Catheter Time of Insertion: 01:30 Data 2 Micro: Micro: Microbiology 02/27/20 04:30 Blood Culture - Fi nal Blood NO GROWTH AFTER 5 DAYS 03/02/20 18:15 C.difficile Toxin B Gene (PCR) - Fin al Stool Routine Col lection 03/02/20 18:40 Blood Culture - Pr eliminary Blood SPECIMEN [facility] 03/02/20 18:30 Blood Culture - Pr eliminary Blood SPECIMEN [facility] A&P Additional A&P Information 1. Hypernatremia - weight 78Kgs, Sodium 157, free water deficit 4.6L - likely to be due to high solute intake, lasix exposure - D/w phamracy; Precedex, Vanco, Azithromycin, Primaxin can all be given with D5w - Would defer giving aggressive ivf given fragility of pulmonary status - cautious use of diuretics but can be given if needed - if she decompensates and requires intubation will place OG and give free water flushes - am labs 2. COVID pneumonitis - BIPAP per ICU/pulmonary team - Solumedrol - Abx coverage 3. HypoK, hypoMG - being replaced Consult Attestations Medical Necessity Statement: eval for hypernatremia 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 Strategic Partnership Representative for Chg Kalina
[2020-03-03 18:02] LABS: Glucose Point of Care 283 mg/dL (70-110)
--- NOTE | 2020-03-03 19:00 | PC.NURSE ---
Assuming care: Report received, care assumed. Monitor alarms, plan of care et previous orders reviewed. patient resting in bed in VICU bed 10. Precedex gtt infusing et titrating to effect. Patient on BiPAP with an FiO2 of 100%. Right triple lumen IJ central line present. Placement verified by x-ray, sutures intact. Dressing changed by RN upon assuming care. Bilateral breath sounds per auscultation. Abdomen round, soft, appears non-tender with positive bowel sounds. Alcantara catheter to dependent drainage. Rectal tube in place for fecal incontinence. Bilateral lower extremity SCDs. Please see physical assessment et vital sign flowsheets for details.
--- NOTE | 2020-03-03 19:29 | P.PN_ITS ---
Subjective Subjective: Interval history: She is lethargic during my visit, although is under sedation. Reported more awake later in the day. Not in distress. Today has been compliant with BiPAP. Low respiratory reserve. Vitals/I&O/Wt Last Vital Signs Temp 98.2 F 03/03/20 12:00 Pulse 73 03/03/20 18:02 Resp 19 H 03/03/20 18:00 BP 124/92 03/03/20 18:00 Pulse Ox 90 03/03/20 18:02 03/03/20 03/03/20 03/03/20 06:59 14:59 22:59 Intake Total 294.167 / 1790.620 8552.00 / 3079.00 618.333 / 3697.333 Output Total 1500 / 2050 400 / 400 1075 / 1475 Balance -1205.833 / -314.577 6005.00 / 2679.00 -456.667 / 2222.333 Weight last 48 hrs Weight 78.381 kg Weight 80.531 kg Physical Exam Const: COMMON NORMALS: no acute distress GENERAL APPEARANCE: lethargic ORIENTATION/CONSCIOUSNESS: Yes confused and Yes lethargic OTHER: BiPAP on. HENMT: COMMON NORMALS: oropharynx normal Neck/C-Spine: COMMON NORMALS: no JVD Resp: COMMON NORMALS: normal respiratory effort AUSCULTATION: crackles Cardio: COMMON NORMALS: no JVD, regular rhythm, S1 normal heart sound present, S2 normal heart sound present and No murmurs present (Cardio) RHYTHM: regular rhythm HEART SOUNDS: S1 normal heart sound present and S2 normal heart sound present GI: COMMON NORMALS: Normal to inspection, nondistended, normoactive bowel sounds present, Soft to palpation and non-tender PALPATION: Yes Soft to palpation Extremity: COMMON NORMALS: no joint enlargement GENERAL: Yes edema (2+) Neuro: COMMON NORMALS: moves all extremities SENSORIUM/ORIENTATION: Yes lethargic Skin: COMMON NORMALS: no rashes or lesions noted GENERAL SKIN EXAM: no rashes or lesions noted Urinary Catheter Management^: Alcantara: Cath Placed During This Visit: yes Reason for Continuing Indwelling Catheter: Accurate Measurement of Urinary Output in Critically Ill Patients Urinary Catheter Date of Insertion: 02/27/20 Urinary Catheter Time of Insertion: : Data : 03/02/20 03:20 03/03/20 09:30 Micro: Microbiology 03/02/20 18:40 Blood Culture - Preliminary Blood NEGATIVE TO DATE 03/02/20 18:30 Blood Culture - Preliminary Blood NEGATIVE TO DATE 02/27/20 17:44 Blood Culture - Final Blood NO GROWTH AFTER 5 DAYS 02/27/20 04:30 Blood Culture - Final Blood NO GROWTH AFTER 5 DAYS 03/02/20 18:15 C.difficile Toxin B Gene (PCR) - Final Stool Routine Collection A&P Assessment and plan (1) Acute hypoxemic respiratory failure due to COVID-19: Persistent hypoxia, requiring 100% FiO2 on BiPAP. Today she has been more cooperative with the BiPAP, although during my visit in the morning also lethargic. Reportedly awake during the day with attempted weaning sedation. Possiblehepatic encephalopathy with elevated ammonia, has been receiving lactulose enemas. Follow-up ammonia level. Appreciate nephrology assistance with managing hypernatremia. At this time will continue supportive care with BiPAP as she is DNI. Continue Solu-Medrol. At this time continue broad-spectrum antibiotic coverage as recommended by pulmonology. Continue therapeutic anticoagulation. Attempted to reach her mother for an update. Her condition remains very poor, with poor overall prognosis. Status: Acute (2) Hypernatremia: Sodium worse this morning. Gentle infusion D5W. Recheck sodium level. Appreciate nephrology recommendations. Status: Acute (3) Septic shock: Severe COVID-19/life-threatening infection, septic shock, complicated by DIC. D-dimer is little bit better today. Fibrinogen borderline low. Better than before. Recheck CBC. Coagulation studies. Has been recultured. Ultrasound obtained of right arm, without any sign of abscess or air. Continue broad-spectrum antibiotic antibiotics at this time. Status: Acute (4) Acute respiratory distress syndrome (ARDS) due to 2019 novel coronavirus: As above. Status: Acute (5) PAT (acute kidney injury): Urine output improved. Creatinine with improvement to 1.1 today. Status: Acute (6) Thrombocytopenia: With worsening today. Additional assessment to see if any pockets of infection in the right bicep. Continue empiric antibiotics, treatment of sepsis. Monitor for any bleeding. Status: Acute (7) Anemia: Check B12, folic acid. Status: Acute (8) Metabolic acidosis: Status: Acute (9) Hypoglycemia: Monitor. Status: Acute (10) Agranulocytosis: Status: Acute (11) DIC (disseminated intravascular coagulation): Recheck coagulation studies. This appears to have stabilized. Continue therapeutic Lovenox. Monitor for bleeding. Status: Acute (12) Hepatic encephalopathy: RI lactulose. Recheck ammonia. Status: Acute (13) Protein-calorie malnutrition: TPN Status: Acute Qualifiers: Protein-calorie malnutrition severity: unspecified severity Qualified Code(s): E46 - Unspecified protein-calorie malnutrition (14) Opioid dependence: Status: Acute Qualifiers: Substance use status: uncomplicated Qualified Code(s): F11.20 - Opioid dependence, uncomplicated (15) Gastroparesis: Status: Acute (16) Hypokalemia: Replaced. Status: Acute Additional A&P Information Hepatic encephalopathy: Continue lactulose enemas. Recheck ammonia. Septic Shock: Resolved. Off pressors. As above for sepsis. Recent echo EF 60%, no RWMA, gr 1 diastolic dysfunction from 04/2019 Lipase not elevated, CT abdomen non specific colitis Hypocalcemia: Corrected with albumin. Transmainitis, LFTs elevated but improved over early Nov Gastroparesis, poor po intake resulting in malnutrition, NPO for now, high risk for aspiration Attestations Medical Necessity Statement*: Continue admission for respiratory failure, life-threatening COVID-19 infection, severe sepsis, DIC, severe hyponatremia, and other comorbidities as above. 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[facility] Diagnoses Acute hypoxemic respiratory failure due to COVID-19 U07.1; J96.01 Hypernatremia E87.0 Septic shock A41.9; R65.21 Acute respiratory distress syndrome (ARDS) due to 2019 novel coronavirus U07.1; J80 PAT (acute kidney injury) N17.9 Thrombocytopenia D69.6 Anemia D64.9 Metabolic acidosis E87.2 Hypoglycemia E16.2 Agranulocytosis D70.9 DIC (disseminated intravascular coagulation) D65 Hepatic encephalopathy K72.90 Protein-calorie malnutrition E46 Protein-calorie malnutrition severity: unspecified severity Opioid dependence F11.20 Substance use status: uncomplicated Gastroparesis K31.84 Hypokalemia E87.6
[2020-03-03 19:40] LABS: Sodium 153 mmol/L (136-145)
[2020-03-03 19:56] LABS: Glucose Point of Care 272 mg/dL (70-110)
[2020-03-03 22:07] LABS: Glucose Point of Care 281 mg/dL (70-110)
[2020-03-03] MEDS: HYDROmorphone 1 mg/mL INJ 1 mL 0.5 MG IVP (23:03)
[2020-03-04] VITALS (45 sets, daily range): BP systolic 115–136; BP diastolic 78–94; PULSE 61–120; RESP 14–35; TEMP 36.6–37.1; O2SAT 84–100
[2020-03-04] MEDS: pantoprazole 40 mg SDV IVP ×2 (00:52→12:55)
[2020-03-04 01:49] LABS: Vancomycin Trough 24.7 ug/mL (10-15)
[2020-03-04 02:06] LABS: Glucose Point of Care 212 mg/dL (70-110)
--- NOTE | 2020-03-04 02:12 | PC.NURSE ---
Patient's vanco trough high at 24.7. Contacted pharmacy and will hold 0200 dose per Ayse, taras.
[2020-03-04] MEDS: ipratropium-albuterol 3 mL Neb INHALATION ×6 (04:00→23:36)
[2020-03-04 05:17] LABS: Basophils % 0.2 %; Hematocrit 24.6 % (37.0-47.0); Hemoglobin 7.5 g/dL (11.5-15.3); Lymphocytes # 0.3 10^3/uL (0.8-4.8); Lymphocytes % 5.4 %; Mean Corpuscular HGB Conc 30.5 g/dL (30.0-36.0); Mean Corpuscular Hemoglobin 32.6 pg (28.0-34.0); Monocytes # 0.2 10^3/uL (0.2-0.9); Monocytes % 2.5 %; Neutrophils # 5.44 10^3/uL (1.8-7.7); Neutrophils % 89.3 %; Nucleated Red Blood Cells # 0.1 /100WBC; Nucleated Red Blood Cells % 1.5 %; Platelet Count 35 10^3/cmm (130-400); Red Cell Distribution Width 20.1 % (12.1-15.1); White Blood Count 6.1 10^3/uL (4.0-10.0)
[2020-03-04] MEDS: dextrose 5% 1,000 ML 75 ML IV ×2 (05:25→17:46)
[2020-03-04 05:46] LABS: Ammonia 115 umol/L (11-51)
[2020-03-04 05:48] LABS: Alanine Aminotransferase 21 U/L (0-33); Albumin Level 2.6 g/dL (3.5-5.2); Alkaline Phosphatase 269 IU/L (35-105); Anion Gap 16.4 (5-19); Aspartate Amino Transferase 59 U/L (0-32); Blood Urea Nitrogen 27 mg/dL (6-20); C Reactive Protein 88.8 mg/L (0.0-4.9); Calcium 8.1 mg/dL (8.5-10.5); Carbon Dioxide 26 mmol/L (22-29); Chloride 113 mmol/L (98-107); Creatine Phosphokinase 75 U/L (26-192); Globulin 1.4 g/dL (1.3-4.6); Glomerular Filtration Rate 67.4 mL/min (90-130); Glucose 180 mg/dL (65-115); Lactate Dehydrogenase 964 U/L (135-214); Magnesium 2.2 mg/dL (1.7-2.3); Osmolality Calculated 324 mOsm/kg (285-295); Potassium 3.4 mmol/L (3.5-5.1); Sodium 152 mmol/L (136-145); Total Bilirubin 2.3 mg/dL (0.15-1.2)
[2020-03-04 05:50] LABS: Platelet Count 35 10^3/cmm (130-400)
[2020-03-04 05:51] LABS: Fibrinogen 148 mg/dL (174-498); INR 1.81 (0.8-1.2); Partial Thromboplastin Time 35.3 SECONDS (23.9-36.7)
[2020-03-04 06:01] LABS: Glucose Point of Care 167 mg/dL (70-110)
[2020-03-04 06:27] LABS: Ferritin 1560 ng/mL (15-150)
[2020-03-04] MEDS: budesonide 0.5 mg/2 mL Neb INHALATION ×2 (08:08→19:58)
[2020-03-04 09:25] LABS: Glucose Point of Care 210 mg/dL (70-110)
--- NOTE | 2020-03-04 09:31 | PC.NURSE ---
Rounding Patient resting in bed with eyes closed. Bipap in place. settings: 80%Fio2. vital signs WNL. dai catheter and rectal tube in place, both draining appropriately. Urine noted to orange in color. right IJ triple lumen dressing clean and dry, see MAR for fluids running. slight swelling and brusing noted to right IJ, this was also reported during shift report from previous RN. patient responds to painful stimuli but does not open eyes. 3+ bilateral lower extremity edema, 2+ bilateral upper extremity edema. When turning the patient nurse noted that left side 2+ sclera edema present. 1+ noted on the right side.
[2020-03-04] MEDS: AA-Dex 5%-20% w/Lytes 1,000 ML 42 ML IV (11:21)
[2020-03-04 11:49] LABS: D Dimer 8.83 ug/mIFEU (0-0.59)
[2020-03-04 12:37] LABS: Glucose Point of Care 295 mg/dL (70-110)
[2020-03-04] MEDS: lactulose oral liq 20 gm/30 mL UDC 200 GM PR (12:54)
[2020-03-04 13:31] LABS: Hemoglobin 7.7 g/dL (11.5-15.3)
--- NOTE | 2020-03-04 13:35 | P.PN_ITS ---
Subjective Subjective: Interval history: remains weak, barely arousable. Global ansarca, legs, arms, even eyes. Maintaining her breathing on FiO2 80% UO noted to be 350mL today No overt uremic Sx Vitals/I&O/Wt Last Vital Signs Temp 98.3 F 03/04/20 08:00 Pulse 79 03/04/20 12:00 Resp 28 H 03/04/20 12:00 BP 123/87 03/04/20 12:00 Pulse Ox 100 03/04/20 12:00 03/03/20 03/04/20 03/04/20 22:59 06:59 14:59 Intake Total 972.333 / 4051.333 876.25 / 4927.583 1454 / 1454 Output Total 1075 / 1475 650 / 2125 Balance -102.667 / 2576.333 226.25 / 2802.583 1454 / 1454 Weight last 48 hrs Weight 75.07 kg Weight 78.381 kg Physical Exam Narrative: EXAM NARRATIVE: Constitutional: Awake, difficult to converse with as dependant on high flow O2 BIAP HEENT: Wet mucosa, no jvp, non icteric Lungs: Bilaterally clear without discernible wheeze or rales in all lung zones CVS: S1 S2, no murmurs Abdo: Soft, BS ok Ext 4: 1-2+ in arms, 3+ in feet, no edema, peripheral perfusion with no cyanosis Neurological: Grossly non-focal Urinary Catheter Management^: Alcantara: Cath Placed During This Visit: yes Reason for Continuing Indwelling Catheter: Accurate Measurement of Urinary Output in Critically Ill Patients Urinary Catheter Date of Insertion: 02/27/20 Urinary Catheter Time of Insertion: 01:30 Data : 03/04/20 12:35 03/04/20 04:00 Micro: Microbiology 03/02/20 18:40 Blood Culture - Preliminary Blood NEGATIVE TO DATE 03/02/20 18:30 Blood Culture - Preliminary Blood NEGATIVE TO DATE 02/27/20 17:44 Blood Culture - Final Blood NO GROWTH AFTER 5 DAYS A&P Additional A&P Information 1. Hypernatremia - Since changes made yesterday her sodium is coming down, however, at risk of getting worse with diuretics - likely to be due to high solute intake, lasix exposure - D/w pharmacy; Precedex, Vanco, Azithromycin, Primaxin can all be given with D5w - Would defer giving aggressive ivf given fragility of pulmonary status - cautious use of diuretics; will start Lasix 40mg iv BID - am labs 2. COVID pneumonitis - BIPAP per ICU/pulmonary team - Solumedrol - Abx coverage 3. 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
[2020-03-04] MEDS: FUROsemide 10 mg/mL SDV 4mL 40 MG IVP (13:52)
[2020-03-04] MEDS: potassium chloride premix 100 ML 25 MEQ IV (14:26)
[2020-03-04 17:14] LABS: Glucose Point of Care 325 mg/dL (70-110)
--- NOTE | 2020-03-04 17:20 | PC.NURSE ---
FFP and Platelets first units of FFP and Platelets administered by this nurse. along with other fluids running and additional medications, increase HR noted by nurse slightly after all medications and blood products infused. call to physician and updated on vital signs. Verbal order to have steward/stewardess night RN give the second units of FFP and Platelets.
--- NOTE | 2020-03-04 19:46 | PM.PN ---
Subjective Subjective: Interval history: She is somewhat lethargic on my examination, but does attempt to open her eyes when called by name, appears to also attempt to nod, but inconsistently, and I am not sure that she understands the question. Vitals/I&O/Wt Last Vital Signs Temp 98.4 F 03/04/20 18:00 Pulse 72 03/04/20 18:00 Resp 34 H 03/04/20 18:00 BP 127/86 03/04/20 18:00 Pulse Ox 96 03/04/20 18:00 03/04/20 03/04/20 03/04/20 06:59 14:59 22:59 Intake Total 876.25 / 4927.583 1723.62 / 1723.62 1601.99 / 3325.61 Output Total 650 / 2125 1999 Balance 226.25 / 2802.583 1723.62 / 1723.62 -398.01 / 1325.61 Weight last 48 hrs Weight 75.07 kg Weight 78.381 kg Physical Exam Const: COMMON NORMALS: no acute distress GENERAL APPEARANCE: lethargic ORIENTATION/CONSCIOUSNESS: Yes lethargic OTHER: BiPAP on. HENMT: COMMON NORMALS: oropharynx normal Neck/C-Spine: COMMON NORMALS: no JVD Resp: COMMON NORMALS: normal respiratory effort AUSCULTATION: crackles (Much less today. In lower lobes) Cardio: COMMON NORMALS: no JVD, regular rhythm, S1 normal heart sound present, S2 normal heart sound present and No murmurs present (Cardio) RHYTHM: regular rhythm HEART SOUNDS: S1 normal heart sound present and S2 normal heart sound present GI: COMMON NORMALS: Normal to inspection, nondistended, normoactive bowel sounds present, Soft to palpation and non-tender PALPATION: Yes Soft to palpation Extremity: COMMON NORMALS: no joint enlargement GENERAL: Yes edema (2+) Neuro: COMMON NORMALS: moves all extremities SENSORIUM/ORIENTATION: Yes lethargic Skin: COMMON NORMALS: no rashes or lesions noted GENERAL SKIN EXAM: no rashes or lesions noted Urinary Catheter Management^: Alcantara: Cath Placed During This Visit: yes Reason for Continuing Indwelling Catheter: Accurate Measurement of Urinary Output in Critically Ill Patients Urinary Catheter Date of Insertion: 02/27/20 Urinary Catheter Time of Insertion: 01:30 Data : 03/04/20 12:35 03/04/20 04:00 Micro: Microbiology 03/03/20 09:45 Urine Culture - Preliminary Urine,Clean Catch Yeast species 03/02/20 18:40 Blood Culture - Preliminary Blood NEGATIVE TO DATE 03/02/20 18:30 Blood Culture - Preliminary Blood NEGATIVE TO DATE 02/27/20 17:44 Blood Culture - Final Blood NO GROWTH AFTER 5 DAYS A&P Assessment and plan (1) Acute hypoxemic respiratory failure due to COVID-19: Today she appears to be actually making progress in terms of hypoxia, allowing for weaning down on FiO2, currently down as low as 60%. She is lethargic. Nursing staff is weaning down on Precedex. Currently down 0.4, and will try to calm down further tonight. Requires slow wean over several days due to duration of received treatment so far. Ammonia is still elevated, continue with enemas for suspected hepatic encephalopathy. Appreciate nephrology assistance with managing hypernatremia which now is gradually improving. Was restarted on Lasix. At this time will continue supportive care with BiPAP as she is DNI. Continue Solu-Medrol. At this time continue broad-spectrum antibiotic coverage. If continues to improve consider de-escalating. Continue therapeutic anticoagulation. Attempted to reach her mother for an update. Her condition remains very poor, with poor overall prognosis. Status: Acute (2) Hypernatremia: Now gradually improving. Appreciate nephrology recommendations. Status: Acute (3) Septic shock: Unfortunately appears again in DIC this morning. Discussed with her mother. We will give supportive transfusion of platelets, FFP due to also decrease in hemoglobin down to 7.5. This appears stable this afternoon at 7.7. As discussed with her mother overall prognosis is very poor, but she does appear to show improvement, and hopefully DIC may halt. She is seen also growing yeast in urine more than 100,000. Add fluconazole. Severe COVID-19/life-threatening infection, septic shock, complicated by DIC. D-dimer is little bit better today. Fibrinogen borderline low. Better than before. Monitor coagulation studies. Has been recultured. Ultrasound obtained of right arm, without any sign of abscess or air. Continue broad-spectrum antibiotic antibiotics at this time. Status: Acute (4) Acute respiratory distress syndrome (ARDS) due to 2019 novel coronavirus: As above. Status: Acute (5) PAT (acute kidney injury): Urine output improved. Creatinine with improvement to 1.1 today. Status: Acute (6) Thrombocytopenia: With worsening today. Transfuse PLT. Continue treatment of sepsis. Monitor for any bleeding. Repeat peripheral smear. Status: Acute (7) Anemia: Check B12, folic acid. Status: Acute (8) Metabolic acidosis: Status: Acute (9) Hypoglycemia: Monitor. Status: Acute (10) Agranulocytosis: Status: Acute (11) DIC (disseminated intravascular coagulation): Worse this morning. Additional supportive transfusion of FFP, platelets. Continue treatment of sepsis. Continue therapeutic Lovenox. Monitor for bleeding. Status: Acute (12) Hepatic encephalopathy: LA lactulose. Ammonia still high. Monitor. Status: Acute (13) Protein-calorie malnutrition: TPN Status: Acute Qualifiers: Protein-calorie malnutrition severity: unspecified severity Qualified Code(s): E46 - Unspecified protein-calorie malnutrition (14) Opioid dependence: Status: Acute Qualifiers: Substance use status: uncomplicated Qualified Code(s): F11.20 - Opioid dependence, uncomplicated (15) Gastroparesis: Status: Acute (16) Hypokalemia: Replaced. Status: Acute Additional A&P Information Hepatic encephalopathy: Continue lactulose enemas. Recheck ammonia. Septic Shock: Resolved. Off pressors. As above for sepsis. Recent echo EF 60%, no RWMA, gr 1 diastolic dysfunction from 04/2019 Lipase not elevated, CT abdomen non specific colitis Hypocalcemia: Corrected with albumin. Transmainitis, LFTs elevated but improved over early Nov Gastroparesis, poor po intake resulting in malnutrition, NPO for now, high risk for aspiration Attestations Medical Necessity Statement*: Continue admission for assessment management of respiratory failure, severe/life-threatening COVID-19, sepsis, DIC, hypernatremia, encephalopathy. 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[facility] Diagnoses Acute hypoxemic respiratory failure due to COVID-19 U07.1; J96.01 Hypernatremia E87.0 Septic shock A41.9; R65.21 Acute respiratory distress syndrome (ARDS) due to 2019 novel coronavirus U07.1; J80 PAT (acute kidney injury) N17.9 Thrombocytopenia D69.6 Anemia D64.9 Metabolic acidosis E87.2 Hypoglycemia E16.2 Agranulocytosis D70.9 DIC (disseminated intravascular coagulation) D65 Hepatic encephalopathy K72.90 Protein-calorie malnutrition E46 Protein-calorie malnutrition severity: unspecified severity Opioid dependence F11.20 Substance use status: uncomplicated Gastroparesis K31.84 Hypokalemia E87.6
[2020-03-04 21:02] LABS: LAB Peripheral Smear Sent for Review
[2020-03-04] MEDS: fluconazole premix 100 MG in empty flexible container 1 EACH 50 MG IV (21:27)
[2020-03-05] VITALS (67 sets, daily range): BP systolic 116–150; BP diastolic 79–113; PULSE 62–127; RESP 13–35; TEMP 36.6–37.6; O2SAT 81–100
--- NOTE | 2020-03-05 00:50 | PC.NURSE ---
Unit number [id number] of FFP verified, vital signs noted, infusion started. Please see [facility]AR documentation for FFP infusion vitals et details.
[2020-03-05] MEDS: pantoprazole 40 mg SDV IVP ×2 (01:30→12:39)
[2020-03-05] MEDS: FUROsemide 10 mg/mL SDV 4mL 40 MG IVP ×2 (01:30→12:40)
--- NOTE | 2020-03-05 01:30 | PC.NURSE ---
Unit #[id number] Plat pheresis verified. Pre-infusion vitals documented. Please see TAR documentation for details.
--- NOTE | 2020-03-05 01:30 | PC.NURSE ---
FFP infusion complete. Vitals noted. No transfusion reaction noted. Will continue to monitor.
[2020-03-05] MEDS: potassium chloride premix 100 ML 25 MEQ IV ×2 (02:09→15:22)
--- NOTE | 2020-03-05 02:30 | PC.NURSE ---
Plat Pheresis complete. Vital signs obtained. No transfusion reaction noted. Will continue to monitor.
--- NOTE | 2020-03-05 02:36 | PC.NURSE ---
0100 Physical assessment: Patient is now spontaneously opening her eyes et following commands. The patient is nodding yes/ no to questions. Physical exam findings will be documented. Otherwise there has been no change in assessment findings.
[2020-03-05] MEDS: ipratropium-albuterol 3 mL Neb INHALATION ×6 (03:32→23:39)
[2020-03-05] MEDS: HYDROmorphone 1 mg/mL INJ 1 mL IVP ×3 (06:28→21:50)
[2020-03-05 07:19] LABS: Glucose Point of Care 257 mg/dL (70-110)
[2020-03-05 07:19] LABS: Glucose Point of Care 182 mg/dL (70-110)
[2020-03-05 07:19] LABS: Glucose Point of Care 157 mg/dL (70-110)
[2020-03-05 07:19] LABS: Glucose Point of Care 184 mg/dL (70-110)
--- NOTE | 2020-03-05 07:27 | PC.NURSE ---
Report given to next shift.
[2020-03-05 07:33] LABS: Basophils % 0.3 %; Hemoglobin 6.8 g/dL (11.5-15.3); Lymphocytes # 0.3 10^3/uL (0.8-4.8); Lymphocytes % 4.4 %; Mean Corpuscular HGB Conc 32.4 g/dL (30.0-36.0); Mean Corpuscular Hemoglobin 33.5 pg (28.0-34.0); Mean Corpuscular Volume 103.4 fL (81-99); Mean Platelet Volume 12.4 fL (7.4-10.4); Monocytes # 0.2 10^3/uL (0.2-0.9); Monocytes % 2.9 %; Neutrophils # 6.31 10^3/uL (1.8-7.7); Neutrophils % 87.3 %; Nucleated Red Blood Cells # 0.1 /100WBC; Nucleated Red Blood Cells % 0.7 %; Platelet Count 80 10^3/cmm (130-400); Red Blood Count 2.03 10^6/uL (4.1-5.3); Red Cell Distribution Width 19.3 % (12.1-15.1); White Blood Count 7.2 10^3/uL (4.0-10.0)
[2020-03-05] MEDS: dextrose 5% 1,000 ML 75 ML IV (07:47)
[2020-03-05 07:54] LABS: C Reactive Protein 54.8 mg/L (0.0-4.9)
[2020-03-05 07:56] LABS: Alanine Aminotransferase 14 U/L (0-33); Alkaline Phosphatase 185 IU/L (35-105); Anion Gap 22.2 (5-19); Aspartate Amino Transferase 23 U/L (0-32); Blood Urea Nitrogen 27 mg/dL (6-20); Calcium 8.5 mg/dL (8.5-10.5); Carbon Dioxide 25 mmol/L (22-29); Chloride 104 mmol/L (98-107); Glomerular Filtration Rate 90.1 mL/min (90-130); Glucose 162 mg/dL (65-115); Osmolality Calculated 315 mOsm/kg (285-295); Potassium 3.2 mmol/L (3.5-5.1); Sodium 148 mmol/L (136-145); Total Bilirubin 1.8 mg/dL (0.15-1.2)
[2020-03-05 08:27] LABS: INR 1.34 (0.8-1.2)
[2020-03-05 08:28] LABS: Partial Thromboplastin Time 29.5 SECONDS (23.9-36.7)
[2020-03-05 08:29] LABS: Fibrinogen 212 mg/dL (174-498)
[2020-03-05 08:45] LABS: Platelet Count 80 10^3/cmm (130-400)
[2020-03-05] MEDS: budesonide 0.5 mg/2 mL Neb INHALATION ×2 (08:52→19:46)
[2020-03-05 08:53] LABS: Slide Review Slide Review Perform
[2020-03-05] MEDS: fluconazole premix 100 MG in empty flexible container 1 EACH 50 MG IV ×2 (09:22→21:47)
--- NOTE | 2020-03-05 09:34 | PC.NURSE ---
Mother called and updated on patient status (decline in breathing). Mother voiced understanding, no further questions.
--- NOTE | 2020-03-05 10:02 | P.PN_ITS ---
Subjective Subjective: Interval history: Continues to do poorly, remains on high flow BIPAP, 55% increased to 75% and still O2 sat 88% Remains very edematous Good urine output in response to lasix High fluid ins yesterday Vitals/I&O/Wt Last Vital Signs Temp 98.8 F 03/05/20 08:00 Pulse 94 03/05/20 08:57 Resp 24 H 03/05/20 08:57 BP 124/86 03/05/20 08:00 Pulse Ox 91 03/05/20 08:57 03/04/20 03/05/20 03/05/20 22:59 06:59 14:59 Intake Total 1688.078 / 3411.698 354.745 / 3766.443 1055.165 / 1055.165 Output Total 1999 1600 / 3600 Balance -311.922 / 1411.698 -1245.255 / 398.749 0208.165 / 1055.165 Weight last 48 hrs Weight 81.193 kg Weight 75.07 kg Physical Exam Narrative: EXAM NARRATIVE: Constitutional: Awake, difficult to converse with as dependant on high flow O2 BIAP HEENT: Wet mucosa, no jvp, non icteric Lungs: Bilaterally clear without discernible wheeze or rales in all lung zones CVS: S1 S2, no murmurs Abdo: Soft, BS ok Ext 4: 1-2+ in arms, 3+ in feet, no edema, peripheral perfusion with no cyanosis Neurological: Grossly non-focal Urinary Catheter Management^: Alcantara: Cath Placed During This Visit: yes Reason for Continuing Indwelling Catheter: Accurate Measurement of Urinary Output in Critically Ill Patients Urinary Catheter Date of Insertion: 02/27/20 Urinary Catheter Time of Insertion: 01:30 Data : 03/05/20 04:00 03/05/20 04:00 Micro: Microbiology 03/03/20 09:45 Urine Culture - Preliminary Urine,Clean Catch Yeast species A&P Additional A&P Information 1. Hypernatremia - Coming down with d5w > will have to stop today in an effort to keep her in negative balance - likely to be due to high solute intake, lasix exposure - D/w pharmacy; Precedex, Vanco, Azithromycin, Primaxin can all be given with D5w - Lasix 40mg iv BID - am labs 2. COVID pneumonitis - BIPAP per ICU/pulmonary team - Solumedrol - Abx coverage 3. HypoK, hypoMG - being replaced; BID 40mEq iv x 4, completing today, may need redose by tomorrow 4. 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
[2020-03-05 10:07] LABS: Glucose Point of Care 209 mg/dL (70-110)
[2020-03-05 10:08] LABS: Ammonia 44 umol/L (11-51)
[2020-03-05] MEDS: AA-Dex 5%-20% w/Lytes 1,000 ML 42 ML IV (11:42)
[2020-03-05 15:09] LABS: Glucose Point of Care 184 mg/dL (70-110)
--- NOTE | 2020-03-05 15:26 | P.PN_ITS ---
Subjective Subjective: Interval history: She wakes up for me today. She is able to state her name. She is extremely weak. Unable to lift her arms or hands. Barely lifts her head. Does not consistently answer questions, but definitely better attempts done yesterday. When asked if she has pain, states yes, but cannot clearly identify where. Vitals/I&O/Wt Last Vital Signs Temp 98.8 F 03/05/20 08:00 Pulse 115 H 03/05/20 14:00 Resp 20 H 03/05/20 15:21 BP 136/104 03/05/20 14:00 Pulse Ox 99 03/05/20 15:21 03/05/20 03/05/20 03/05/20 06:59 14:59 22:59 Intake Total 454.745 / 3866.443 2638.475 / 2638.475 Output Total 1600 / 3600 250 / 250 Balance -1145.255 / 883.590 8328.475 / 2388.475 Weight last 48 hrs Weight 81.193 kg Weight 75.07 kg Physical Exam Const: COMMON NORMALS: no acute distress GENERAL APPEARANCE: lethargic (Wakes up. More alert today. Attempted to answer some questions.) ORIENTATION/CONSCIOUSNESS: Yes lethargic (Wakes up. More alert today. Attempted to answer some questions.) OTHER: BiPAP on. Extreme generalized weakness. HENMT: COMMON NORMALS: oropharynx normal Neck/C-Spine: COMMON NORMALS: no JVD Resp: COMMON NORMALS: normal respiratory effort AUSCULTATION: crackles (lower lobes) Cardio: COMMON NORMALS: no JVD, regular rhythm, S1 normal heart sound present, S2 normal heart sound present and No murmurs present (Cardio) RHYTHM: regular rhythm HEART SOUNDS: S1 normal heart sound present and S2 normal heart sound present GI: COMMON NORMALS: Normal to inspection, nondistended, normoactive bowel sounds present, Soft to palpation and non-tender PALPATION: Yes Soft to palpation Extremity: COMMON NORMALS: no joint enlargement GENERAL: Yes edema (2+) Neuro: COMMON NORMALS: moves all extremities (Very weak. Weakly attempts to squeeze her hands.) SENSORIUM/ORIENTATION: Yes lethargic (Wakes up. More alert today. Attempted to answer some questions.) Skin: COMMON NORMALS: no rashes or lesions noted GENERAL SKIN EXAM: no rashes or lesions noted Urinary Catheter Management^: Alcantara: Cath Placed During This Visit: yes Reason for Continuing Indwelling Catheter: Accurate Measurement of Urinary O utput in Critically Ill Patients Urinary Catheter Date of Insertion: 02/27/20 Urinary Catheter Time of Insertion: 01:30 Data : 03/05/20 04:00 03/05/20 04:00 Micro: Microbiology 03/03/20 09:45 Urine Culture - Preliminary Urine,Clean Catch Yeast species A&P Assessment and plan (1) Acute hypoxemic respiratory failure due to COVID-19: Oxygenation was somewhat worse this morning up to 80% FiO2 requirement. Little bit better in the afternoon. Bilateral crackles audible. IV fluids were discontinued by nephrology. Continue with Lasix. Continue attempts to diuresis she appears to responding well to Lasix. Oxygenation is improving. Mental status today is better she actually wakes up for me. Ammonia is now down to normal. Hyponatremia is continuing to improve. She is extremely weak. Will engage PT and OT. Discussed with her mother. Continue attempts to wean off oxygen support. If continues to improve will de- escalate steroids, antibiotics. Once gets little bit stronger we will get speech therapy evaluation. Continue therapeutic anticoagulation. BiPAP support. Status: Acute (2) Hypernatremia: Now gradually improving. Appreciate nephrology recommendations. Status: Acute (3) Septic shock: Acute anemia today after episode of DIC yesterday. Hemoglobin down to 6.8. Ordered 1 unit PRBC transfusion. INR, fibrinogen today are better. She is seen also growing yeast in urine more than 100,000, started on Diflucan. Severe COVID-19/life-threatening infection, septic shock, complicated by DIC. Monitor coagulation studies. Has been recultured. Ultrasound obtained of right arm, without any sign of abscess or air. Continue broad-spectrum antibiotic antibiotics at this time. Status: Acute (4) Acute respiratory distress syndrome (ARDS) due to 2019 novel coronavirus: As above. Status: Acute (5) PAT (acute kidney injury): Improved. Status: Acute (6) Thrombocytopenia: Responded well to platelet transfusion. Continue treatment of sepsis. Monitor for any bleeding. Repeat peripheral smear. Status: Acute (7) Anemia: Will give 1 unit PBC transfusion. Normal B12, low folic acid. Would benefit from folic acid replacement. Status: Acute (8) Metabolic acidosis: Status: Acute (9) Hypoglycemia: Monitor. Status: Acute (10) Agranulocytosis: Status: Acute (11) DIC (disseminated intravascular coagulation): Appears stabilized. Additional supportive transfusion of FFP, platelets 03/04. Continue treatment of sepsis. Continue therapeutic Lovenox. Monitor for bleeding. Status: Acute (12) Hepatic encephalopathy: ME lactulose. Ammonia still high. Monitor. Status: Acute (13) Protein-calorie malnutrition: TPN Status: Acute Qualifiers: Protein-calorie malnutrition severity: unspecified severity Qualified Code(s): E46 - Unspecified protein-calorie malnutrition (14) Opioid dependence: Status: Acute Qualifiers: Substance use status: uncomplicated Qualified Code(s): F11.20 - Opioid dependence, uncomplicated (15) Gastroparesis: Status: Acute (16) Hypokalemia: Replaced. Status: Acute Additional A&P Information Hepatic encephalopathy: Continue lactulose enemas. Ammonia is much better at 44. Septic Shock: Resolved. Off pressors. As above for sepsis. Recent echo EF 60%, no RWMA, gr 1 diastolic dysfunction from 04/2019 Lipase not elevated, CT abdomen non specific colitis Hypocalcemia: Corrected with albumin. Transmainitis, LFTs elevated but improved over early Nov Gastroparesis, poor po intake resulting in malnutrition, NPO for now, high risk for aspiration Attestations Medical Necessity Statement*: Continue admission for assessment and management of respiratory failure, severe COVID, sepsis, DIC, acute encephalopathy. 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 Comprehensive Diagnoses Acute hypoxemic respiratory failure due to COVID-19 U07.1; J96.01 Hypernatremia E87.0 Septic shock A41.9; R65.21 Acute respiratory distress syndrome (ARDS) due to 2019 novel coronavirus U07.1; J80 PAT (acute kidney injury) N17.9 Thrombocytopenia D69.6 Anemia D64.9 Metabolic acidosis E87.2 Hypoglycemia E16.2 Agranulocytosis D70.9 DIC (disseminated intravascular coagulation) D65 Hepatic encephalopathy K72.90 Protein-calorie malnutrition E46 Protein-calorie malnutrition severity: unspecified severity Opioid dependence F11.20 Substance use status: uncomplicated Gastroparesis K31.84 Hypokalemia E87.6
[2020-03-05] MEDS: sodium chloride 0.9% (100 ml) 100 ML 50 ML (15:57)
[2020-03-05] MEDS: acetaminophen 325 mg Tablet 650 MG PO (16:05)
[2020-03-05 16:15] LABS: Glucose Point of Care 185 mg/dL (70-110)
[2020-03-05 18:39] LABS: Glucose Point of Care 165 mg/dL (70-110)
--- NOTE | 2020-03-05 18:50 | ECG_ITS ---
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 [email or web address]/store/[id number]
[2020-03-05 22:12] LABS: Glucose Point of Care 157 mg/dL (70-110)
[2020-03-06] VITALS (35 sets, daily range): BP systolic 117–160; BP diastolic 81–109; PULSE 70–106; RESP 15–37; TEMP 36.6–37.4; O2SAT 87–97
[2020-03-06] MEDS: pantoprazole 40 mg SDV IVP ×2 (01:18→13:08)
[2020-03-06] MEDS: FUROsemide 10 mg/mL SDV 4mL 40 MG IVP ×2 (01:18→20:40)
[2020-03-06] MEDS: potassium chloride premix 100 ML 25 MEQ IV (01:21)
[2020-03-06 01:40] LABS: Glucose Point of Care 152 mg/dL (70-110)
[2020-03-06] MEDS: hyDRALAzine 20 mg/mL INJ 1 mL 10 MG IVP (02:19)
[2020-03-06 03:47] LABS: Hematocrit 25.8 % (37.0-47.0); Hemoglobin 8.5 g/dL (11.5-15.3); Mean Corpuscular HGB Conc 32.9 g/dL (30.0-36.0); Mean Corpuscular Hemoglobin 31.7 pg (28.0-34.0); Mean Platelet Volume 11.3 fL (7.4-10.4); Platelet Count 37 10^3/cmm (130-400); Red Blood Count 2.68 10^6/uL (4.1-5.3); Red Cell Distribution Width 22.4 % (12.1-15.1)
[2020-03-06 03:52] LABS: INR 1.53 (0.8-1.2)
[2020-03-06 03:53] LABS: Partial Thromboplastin Time 28.1 SECONDS (23.9-36.7)
[2020-03-06 03:54] LABS: Fibrinogen 211 mg/dL (174-498)
[2020-03-06 04:03] LABS: D Dimer 8.64 ug/mIFEU (0-0.59)
[2020-03-06 04:05] LABS: Alanine Aminotransferase 12 U/L (0-33); Albumin Level 2.8 g/dL (3.5-5.2); Alkaline Phosphatase 181 IU/L (35-105); Anion Gap 20.2 (5-19); Aspartate Amino Transferase 26 U/L (0-32); Blood Urea Nitrogen 32 mg/dL (6-20); C Reactive Protein 63.1 mg/L (0.0-4.9); Calcium 8.2 mg/dL (8.5-10.5); Carbon Dioxide 24 mmol/L (22-29); Chloride 104 mmol/L (98-107); Globulin 1.6 g/dL (1.3-4.6); Glomerular Filtration Rate 90.1 mL/min (90-130); Glucose 216 mg/dL (65-115); Osmolality Calculated 311 mOsm/kg (285-295); Potassium 4.2 mmol/L (3.5-5.1); Sodium 144 mmol/L (136-145); Total Bilirubin 1.8 mg/dL (0.15-1.2); Total Protein 4.4 g/dL (6.6-8.7)
[2020-03-06 04:06] LABS: Magnesium 1.9 mg/dL (1.7-2.3)
[2020-03-06] MEDS: ipratropium-albuterol 3 mL Neb INHALATION ×5 (04:39→20:20)
[2020-03-06] MEDS: HYDROmorphone 1 mg/mL INJ 1 mL IVP ×4 (04:59→22:45)
[2020-03-06 05:41] LABS: Glucose Point of Care 181 mg/dL (70-110)
[2020-03-06 05:46] LABS: Mean Corpuscular Volume 96.3 fL (81-99)
[2020-03-06 05:47] LABS: Slide Review Slide Review Perform
[2020-03-06 05:48] LABS: Absolute Segmented Neutrophil 4.5 10/cmm (1.6-7.1); Segmented Neutrophils 89 %; Total Cells Counted 100 (0-100)
[2020-03-06 05:49] LABS: Absolute Neutrophil 4.7 10^3/cmm (1.4-6.5); Anisocytosis Trace; Band Neutrophils Absolute 0.2 10^3/cmm (0.0-1.2); Eosinophils 0 %; Lymphocytes 3 %; Monocytes Absolute 0.1 10^3/cmm (0.1-0.6); Platelet Count 37 10^3/cmm (130-400); Platelet Estimate Decreased (Normal)
[2020-03-06 07:51] LABS: Glucose Point of Care 167 mg/dL (70-110)
[2020-03-06] MEDS: budesonide 0.5 mg/2 mL Neb INHALATION ×2 (08:14→20:20)
[2020-03-06] MEDS: fluconazole premix 100 MG in empty flexible container 1 EACH 50 MG IV ×2 (08:51→20:40)
[2020-03-06] MEDS: AA-Dex 5%-20% w/Lytes 1,000 ML 42 ML IV (12:59)
[2020-03-06 14:12] LABS: Glucose Point of Care 134 mg/dL (70-110)
--- NOTE | 2020-03-06 14:31 | PM.PN ---
Subjective Subjective: Interval history: Remains weak and unwell. Back on BIPAP at 80% FIO2, global edema Made 1400mL yesterday in response to diuretics Arousable Vitals/I&O/Wt Last Vital Signs Temp 98.1 F 03/06/20 12:00 Pulse 85 03/06/20 14:00 Resp 16 03/06/20 14:00 BP 141/94 03/06/20 14:00 Pulse Ox 93 03/06/20 14:00 03/05/20 03/06/20 03/06/20 22:59 06:59 14:59 Intake Total 736.365 / 3374.840 333.00 / 3707.840 1407.7 / 1407.7 Output Total 850 / 1100 450 / 1550 200 / 200 Balance -113.635 / 2274.840 -117.00 / 2157.840 1207.7 / 1207.7 Weight last 48 hrs Weight 81.737 kg Weight 81.193 kg Physical Exam Narrative: EXAM NARRATIVE: Constitutional: Awake, difficult to converse with as dependant on high flow O2 BIAP HEENT: Wet mucosa, no jvp, non icteric Lungs: Bilaterally clear without discernible wheeze or rales in all lung zones CVS: S1 S2, no murmurs Abdo: Soft, BS ok Ext 4: 1-2+ in arms, 3+ in feet, no edema, peripheral perfusion with no cyanosis Neurological: Grossly non-focal Urinary Catheter Management^: Alcantara: Cath Placed During This Visit: yes Reason for Continuing Indwelling Catheter: Accurate Measurement of Urinary Output in Critically Ill Patients Urinary Catheter Date of Insertion: 02/27/20 Urinary Catheter Time of Insertion: 01:30 Data : 03/06/20 03:00 03/06/20 03:00 A&P Additional A&P Information 1. Hypernatremia - resolved; riders switched to D5w 2. COVID pneumonitis - BIPAP per ICU/pulmonary team - Solumedrol - Abx coverage 3. 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
[2020-03-06] MEDS: LORazepam 2 mg/mL INJ 1 mL 0.25 MG IVP (15:23)
[2020-03-06 16:40] LABS: Glucose Point of Care 148 mg/dL (70-110)
--- NOTE | 2020-03-06 18:50 | P.PN_ITS ---
Subjective Subjective: Interval history: The patient is currently on BiPAP. Her oxygen requirement had gone up today. The patient appears to be sedated on Precedex but arousable. I have reviewed the patient's chart in details. The patient had been suffering from low hemoglobin, low platelet count since the beginning of February. There are concerns whether the patient is suffering from DIC however the patient has normal reticulocyte count which is very unusual in the setting of acute hemo lytic anemia either from DIC or TTP. Similarly, her INR is minimally elevated at this point. There is no evidence of significant schistocytes on peripheral blood film. This would be very inconsistent with a diagnosis of DIC or TTP. The patient has low folate level. Her MCV is high as well. The patient has a very interesting finding of very low BUN that could be identified as early as June 2019. In February 2020 her BUN level was 2. The patient has hepatomegaly from fat deposition. Elevated ammonia level and a previous history of gastric bypass. 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 Currently the patient has a BUN in the 20s to 30s which I believe is secondary to very high-dose corticosteroid therapy. On the previous CT scans the patient had shown evidence of anasarca, bilateral pleural effusion. Based on the chest x-ray it appears that the ARDS secondary to COVID-19 pneumonia has actually improved. Interestingly her procalcitonin level is 99. Low fibrinogen level could be secondary to hepatic dysfunction. Medications: Reviewed: Yes Vitals/I&O/Wt Last Vital Signs Temp 98.8 F 03/06/20 16:00 Pulse 75 03/06/20 18:00 Resp 25 H 03/06/20 18:00 BP 160/109 03/06/20 18:00 Pulse Ox 95 03/06/20 18:00 03/06/20 03/06/20 03/06/20 06:59 14:59 22:59 Intake Total 333.00 / 3707.840 1407.7 / 1407.7 200 / 1607.7 Output Total 450 / 1550 400 / 400 150 / 550 Balance -117.00 / 2157.840 1007.7 / 1007.7 50 / 1057.7 Weight last 48 hrs Weight 180 lb 3.2 oz Weight 179 lb Physical Exam Narrative: EXAM NARRATIVE: General: Patient is sleepy but arousable Neck: No JVD Respiratory: Auscultation: Reduced breath sound, crackles occasionally at the bases, no wheezing or rhonchi Cardiovascular: Regular rate and rhythm, S1-S2 present, no murmur, the patient has diffuse anasarca Abdomen: Soft, nontender, nondistended, positive bowel sound Musculoskeletal: No obvious joint deformity Skin: No rash Neuro: Patient is arousable follow simple commands, no gross motor deficit Urinary Catheter Management^: [place]: Cath Placed During This Visit: yes Reason for Continuing Indwelling Catheter: Accurate Measurement of Urinary Output in Critically Ill Patients Urinary Catheter Date of Insertion: 02/27/20 Urinary Catheter Time of Insertion: 01:30 Data : 03/06/20 03:00 03/06/20 03:00 Attestation for Other Data: I personally reviewed and interpreted the following: Other data: I have reviewed the patient's laboratory, microbiologic and radiologic data. Please see the HPI for details. All microbiologic studies have been negative so far except urine culture showing yeast species. Per natremia has improved with IV hypotonic fluid therapy. A&P Assessment and plan (1) Acute respiratory distress syndrome (ARDS) due to 2019 novel coronavirus: The patient has severe COVID-19 pneumonia leading to ARDS. Fortunately, there has been significant radiologic improvement and the patient's oxygen requirement has also come down. I was able to bring her oxygen requirement to 70% while she was on BiPAP. I would recommend keeping her at the 45 degree position to minimize the lower lobe atelectasis. I would also recommend reducing the dose of Precedex so that the patient can be switched to high flow nasal cannula. Once she is on high flow nasal cannula, she should receive an NG tube which can be used for enteral feeding. I would strongly recommend discontinuing the TPN and the central venous catheter especially in the setting of urine culture growing a yeast species. The patient's corticosteroid dose can be cut down to provide an equivalent dose of 6 mg of dexamethasone daily. Would recommend moderate dose anticoagulation therapy. We will likely stop the antibiotic therapy after a prespecified duration of 10 to 14 days. Status: Acute (2) Hepatic encephalopathy: The patient most likely has significant liver dysfunction. The patient either has urea cycle disorder or significant hepatic dysfunction leading to a profound increase in ammonia level in response to high-dose corticosteroid therapy. 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 With increased muscle breakdown secondary to high-dose corticosteroid therapy it is not surprising that the patient had a significant elevation in her ammonia level. Fortunately, the ammonia level has come down with lactulose. We need to work on keeping the ammonia level within normal range The patient also has chronic pancreatitis and in the setting of gastric bypass we will check for vitamin WU and K level. Deficiency of vitamin K might lead to an elevated INR level which the patient has had in the past as well. Status: Acute (3) Anemia: There is no evidence of hemolysis on the peripheral blood smear. Reticulocyte count is not elevated. The patient has macrocytic anemia likely secondary to folic acid deficiency in the setting of hepatic dysfunction. Would manage this conservatively with blood products if necessary. Status: Acute (4) Thrombocytopenia: The plan is for her to receive a unit of platelet when she gets her NG tube placed tomorrow. I do believe that this patient might have a favorable outcome. Radiologically and clinically her COVID-19 pneumonia is much better. Status: Acute (5) Anasarca: The anasarca is likely secondary to hepatic dysfunction. There is no evidence of cardiac dysfunction or any evidence of nephrotic syndrome. In the setting of gastric bypass and chronic pancreatitis, chronic malabsorption also needs to be evaluated. Patient will need gentle diuresis. If there is any worsening of the sodium level, once the patient has an NG tube, she can be supported with free water flushes. I will continue to follow the patient. 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
--- NOTE | 2020-03-06 19:06 | PC.NURSE ---
SHIFT CHANGE REPORT Report received from CLAUDIA Sainz. Pt is on bipap with dai and rectal tube as well as a central line. Per nurse, Dr. Walker and Dr. Celeste believe pt to be in acidosis and in need of less sedation and lactulose. ABG and ammonia were drawn. Pt agitated when nurse did initial assessment. Precedex was not to be above 0.4. PRN dilaudid hadn't been given since AM, so a dose was given. See MAR. Will watch for lab results and consult night cleaner Dr for further orders.
[2020-03-06 19:11] LABS: Ammonia 48 umol/L (11-51)
[2020-03-06] MEDS: hyDRALAzine 20 mg/mL INJ 1 mL 5 MG IVP ×2 (19:24→20:40)
--- NOTE | 2020-03-06 20:18 | P.PN_ITS ---
Subjective Subjective: Interval history: She was somewhat restless today, with elevated blood pressure. Precedex dose had to be increased. During my visit she opens her eyes, makes eye contact, but falls back asleep promptly. Vitals/I&O/Wt Last Vital Signs Temp 98.8 F 03/06/20 16:00 Pulse 75 03/06/20 18:00 Resp 25 H 03/06/20 18:00 BP 160/109 03/06/20 18:00 Pulse Ox 95 03/06/20 18:00 03/06/20 03/06/20 03/06/20 06:59 14:59 22:59 Intake Total 333.00 / 3707.840 1407.7 / 1407.7 200 / 1607.7 Output Total 450 / 1550 400 / 400 150 / 550 Balance -117.00 / 2157.840 1007.7 / 1007.7 50 / 1057.7 Weight last 48 hrs Weight 81.737 kg Weight 81.193 kg Physical Exam Const: COMMON NORMALS: no acute distress GENERAL APPEARANCE: lethargic (Wakes up. More alert today. Attempted to answer some questions.) ORIENTATION/CONSCIOUSNESS: Yes lethargic (Wakes up. More alert today. Attempted to answer some questions.) OTHER: BiPAP on. Opens eyes. Very weak. HENMT: COMMON NORMALS: oropharynx normal Neck/C-Spine: COMMON NORMALS: no JVD Resp: COMMON NORMALS: normal respiratory effort AUSCULTATION: crackles (lower lobes) Cardio: COMMON NORMALS: no JVD, regular rhythm, S1 normal heart sound present, S2 normal heart sound present and No murmurs present (Cardio) RHYTHM: regular rhythm HEART SOUNDS: S1 normal heart sound present and S2 normal heart sound present GI: COMMON NORMALS: Normal to inspection, nondistended, normoactive bowel sounds present, Soft to palpation and non-tender PALPATION: Yes Soft to palpa tion Extremity: COMMON NORMALS: no joint enlargement GENERAL: Yes edema (2+) Neuro: COMMON NORMALS: moves all extremities (Very weak. Weakly attempts to squeeze her hands.) SENSORIUM/ORIENTATION: Yes lethargic (Wakes up. More alert today. Attempted to answer some questions.) Skin: COMMON NORMALS: no rashes or lesions noted GENERAL SKIN EXAM: no rashes or lesions noted Urinary Catheter Management^: [place]: Cath Placed During This Visit: yes Reason for Continuing Indwelling Catheter: Accurate Measurement of Urinary Output in Critically Ill Patients Urinary Catheter Date of Insertion: 02/27/20 Urinary Catheter Time of Insertion: :30 Data : 03/06/20 03:00 03/06/20 03:00 A&P Assessment and plan (1) Acute hypoxemic respiratory failure due to COVID-19: Oxygenation worse today, requiring 80% FiO2. We will go ahead and repeat a dose of Lasix. Attempt to switch to high flow cannula. Appreciate pulmonology recommendations. Decrease Lovenox dose to 30 mg twice daily. Reassess platelets. Transfuse if necessary, attempt to place NG tube for tube feeds to allow weaning of IV infusions. We will decrease steroid dose. Precedex dose was increased today, history was as low as 0.1. Continue to cut down. Low-dose intermittent Ativan as needed if restless. Continue lactulose enemas. Follow-up ammonia level. Hyponatremia is continuing to improve. PT and OT. Once gets little bit stronger we will get speech therapy evaluation. Status: Acute (2) Hypernatremia: Better. Appreciate nephrology recommendations. Status: Acute (3) Septic shock: Blood pressure is now elevated. Peripheral smear without schistocytes, however, with some noted dysmorphic metamyelocytes and myelocytes. Suspect likely secondary to infection. Possibly folic acid deficiency. As recommended by pathology flow cytometry is ordered to exclude myeloid disorder. Acute anemia today after episode of DIC yesterday. Hemoglobin down to 6.8. Ordered 1 unit PRBC transfusion. INR, fibrinogen are better. Suspected underlying fibrosis or possibly cirrhosis. She is seen also growing yeast in urine more than 100,000, started on Diflucan. Attempt to DC TPN if can successfully maintain oxygen on cannula and allow for NG placement. Severe COVID-19/life-threatening infection, septic shock, complicated by DIC. Status: Acute (4) Acute respiratory distress syndrome (ARDS) due to 2019 novel coronavirus: As above. Status: Acute (5) PAT (acute kidney injury): Improved. Status: Acute (6) Thrombocytopenia: Again thrombocytopenia. We are reducing anticoagulation dose due to recurrent thrombocytopenia. Additional platelet transfusion if persistent in the morning. Continue treatment of sepsis. Status: Acute (7) Anemia: Responded well to PRBC transfusion. Normal B12, low folic acid. Would benefit from folic acid replacement once able to administer enteric feeds. Will give custom banana bag w small volume of d5, folic acid, mva, Mg. Status: Acute (8) Metabolic acidosis: Status: Acute (9) Hypoglycemia: Monitor. Status: Acute (10) Agranulocytosis: Status: Acute (11) DIC (disseminated intravascular coagulation): Appears stabilized. Status: Acute (12) Hepatic encephalopathy: [place] lactulose. Ammonia still high. Monitor. Status: Acute (13) Protein-calorie malnutrition: TPN Status: Acute Qualifiers: Protein-calorie malnutrition severity: unspecified severity Qualified Code(s): E46 - Unspecified protein-calorie malnutrition (14) Opioid dependence: Status: Acute Qualifiers: Substance use status: uncomplicated Qualified Code(s): F11.20 - Opioid dependence, uncomplicated (15) Gastroparesis: Status: Acute (16) Hypokalemia: Replaced. Status: Acute Additional A&P Information Hepatic encephalopathy: Continue lactulose enemas. Ammonia is much better at 48. Septic Shock: Resolved. Off pressors. As above for sepsis. Recent echo EF 60%, no RWMA, gr 1 diastolic dysfunction from 04/2019 Lipase not elevated, CT abdomen non specific colitis Hypocalcemia: Corrected with albumin. Transmainitis, LFTs elevated but improved over early Nov Gastroparesis, poor po intake resulting in malnutrition, NPO for now, high risk for aspiration Attestations Medical Necessity Statement*: Continue admission for assessment management of hypoxic respite failure, weaning of BiPAP support, switch to high flow cannula if possible to allow initiation of enteric feeding, weaning off TPN, weaning of steroids, replacement of blood products as needed, mobilization and management of other problems outlined above. 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 Time Study Clerk for [facility] Fwd Diagnoses Acute hypoxemic respiratory failure due to COVID-19 U07.1; J96.01 Hypernatremia E87.0 Septic shock A41.9; R65.21 Acute respiratory distress syndrome (ARDS) due to 2019 novel coronavirus U07.1; J80 PAT (acute kidney injury) N17.9 Thrombocytopenia D69.6 Anemia D64.9 Metabolic acidosis E87.2 Hypoglycemia E16.2 Agranulocytosis D70.9 DIC (disseminated intravascular coagulation) D65 Hepatic encephalopathy K72.90 Protein-calorie malnutrition E46 Protein-calorie malnutrition severity: unspecified severity Opioid dependence F11.20 Substance use status: uncomplicated Gastroparesis K31.84 Hypokalemia E87.6
[2020-03-06 21:40] LABS: Glucose Point of Care 160 mg/dL (70-110)
[2020-03-06] MEDS: magnesium sulfate premix 2 GM/50 ML PIGGYBACK IV (22:00)
[2020-03-07] VITALS (65 sets, daily range): BP systolic 112–145; BP diastolic 80–103; PULSE 70–133; RESP 8–34; TEMP 36.7–37.6; O2SAT 85–99
[2020-03-07] MEDS: ipratropium-albuterol 3 mL Neb INHALATION ×6 (00:02→20:17)
[2020-03-07] MEDS: pantoprazole 40 mg SDV IVP ×2 (00:17→13:44)
[2020-03-07 01:36] LABS: Glucose Point of Care 165 mg/dL (70-110)
[2020-03-07] MEDS: HYDROmorphone 1 mg/mL INJ 1 mL IVP ×6 (02:39→22:17)
[2020-03-07 03:07] LABS: Ammonia 52 umol/L (11-51)
[2020-03-07 03:21] LABS: Basophils % 0.3 %; Hematocrit 28.6 % (37.0-47.0); Hemoglobin 9.5 g/dL (11.5-15.3); Lymphocytes # 0.3 10^3/uL (0.8-4.8); Lymphocytes % 2.9 %; Mean Corpuscular HGB Conc 33.2 g/dL (30.0-36.0); Mean Corpuscular Hemoglobin 31.6 pg (28.0-34.0); Monocytes # 0.4 10^3/uL (0.2-0.9); Neutrophils # 8.53 10^3/uL (1.8-7.7); Neutrophils % 88.1 %; Nucleated Red Blood Cells % 0.3 %; Platelet Count 30 10^3/cmm (130-400); Red Blood Count 3.01 10^6/uL (4.1-5.3); Red Cell Distribution Width 21.6 % (12.1-15.1); White Blood Count 9.7 10^3/uL (4.0-10.0)
[2020-03-07 03:23] LABS: Alanine Aminotransferase 13 U/L (0-33); Albumin Level 2.6 g/dL (3.5-5.2); Alkaline Phosphatase 176 IU/L (35-105); Anion Gap 21.3 (5-19); Aspartate Amino Transferase 20 U/L (0-32); Blood Urea Nitrogen 38 mg/dL (6-20); Calcium 8.5 mg/dL (8.5-10.5); Carbon Dioxide 24 mmol/L (22-29); Chloride 104 mmol/L (98-107); Globulin 2.3 g/dL (1.3-4.6); Glomerular Filtration Rate 90.1 mL/min (90-130); Glucose 176 mg/dL (65-115); Osmolality Calculated 313 mOsm/kg (285-295); Potassium 4.3 mmol/L (3.5-5.1); Sodium 145 mmol/L (136-145); Total Bilirubin 2.1 mg/dL (0.15-1.2); Total Protein 4.9 g/dL (6.6-8.7)
[2020-03-07 03:26] LABS: C Reactive Protein 66.7 mg/L (0.0-4.9)
[2020-03-07 03:38] LABS: 25 Hydroxy Vitamin D 11 ng/mL (30-100)
[2020-03-07 03:59] LABS: Slide Review Slide Review Perform
[2020-03-07 06:03] LABS: Glucose Point of Care 171 mg/dL (70-110)
[2020-03-07 06:03] LABS: Glucose Point of Care 193 mg/dL (70-110)
--- NOTE | 2020-03-07 06:30 | PC.NURSE ---
SHIFT SUMMARY Pt was able to wake up a bit more as the precedex wore off. Precedex was also decreased (per report orders from Aaron and Booker) to 0.2 mcg/kg/hr(see MAR). As pt woke up more and precedex was weaned, pt began complaining more and more of pain. Pt was repositioned and pillows placed multiple times. Dr. Love was consulted about the pain and, initially, dilaudid order was changed from Q6hr to Q4hr. Later, an extra one-time dose of dilaudid was ordered between the 238 and 626 (see MAR). Dr. Love stated that this would be considered and extra dose, so the following one could be given 4 hr after 0239 dose. Day shift informed of pain issue.
[2020-03-07 07:38] LABS: Glucose Point of Care 179 mg/dL (70-110)
[2020-03-07] MEDS: lactulose oral liq 20 gm/30 mL UDC 200 GM PR (07:56)
[2020-03-07] MEDS: fluconazole premix 100 MG in empty flexible container 1 EACH 50 MG IV ×2 (08:14→20:36)
[2020-03-07] MEDS: budesonide 0.5 mg/2 mL Neb INHALATION ×2 (08:23→20:17)
--- NOTE | 2020-03-07 10:47 | PC.OT ---
OT tx attempted. Nursing reports pt unable to tolerate tx at this time and requests OT services be withheld today. Therapist to attempt again tomorrow.
[2020-03-07 11:57] LABS: Glucose Point of Care 187 mg/dL (70-110)
[2020-03-07 14:09] LABS: Vancomycin Trough 14.6 ug/mL (10-15)
[2020-03-07 14:53] LABS: Heparin-Induced Platelet AB Negative (Negative)
[2020-03-07 15:54] LABS: Glucose Point of Care 235 mg/dL (70-110)
[2020-03-07] MEDS: hyDRALAzine 20 mg/mL INJ 1 mL 5 MG IVP (16:32)
[2020-03-07] MEDS: LORazepam 2 mg/mL INJ 1 mL 0.25 MG IVP (17:43)
--- NOTE | 2020-03-07 18:24 | P.PN_ITS ---
Subjective Subjective: Interval history: Today she was more alert. She is interacting, although somewhat confused. Stating her name. Is able to give a very basic ROS. Follows some commands. Anxious. Reports her belly hurting. Vitals/I&O/Wt Last Vital Signs Temp 99.2 F 03/07/20 17:45 Pulse 123 H 03/07/20 18:00 Resp 17 03/07/20 18:00 BP 123/88 03/07/20 18:00 Pulse Ox 90 03/07/20 18:00 03/07/20 03/07/20 03/07/20 06:59 14:59 22:59 Intake Total 686.292 / 3486.292 400 / 400 0 / 400 Output Total 1075 / 1625 350 / 350 50 / 400 Balance -388.708 / 1861.292 50 / 50 -50 / 0 Weight last 48 hrs Weight 81.737 kg Physical Exam Const: COMMON NORMALS: no acute distress GENERAL APPEARANCE: lethargic (Wakes up. More alert today. Attempted to answer some questions.) ORIENTATION/CONSCIOUSNESS: Yes lethargic (Wakes up. More alert today. Attempted to answer some questions.) OTHER: Today she is more alert. Somewhat stronger. High flow cannula on for a while, however, subsequently getting tired and needs to again transition to BiPAP. HENMT: COMMON NORMALS: oropharynx normal Neck/C-Spine: COMMON NORMALS: no JVD Resp: COMMON NORMALS: normal respiratory effort AUSCULTATION: crackles (Fewer crackles especially on the left, some residual right base.) Cardio: COMMON NORMALS: no JVD, regular rhythm, S1 normal heart sound present, S2 normal heart sound present and No murmurs present (Cardio) RHYTHM: regular rhythm HEART SOUNDS: S1 normal heart sound present and S2 normal heart sound present GI: COMMON NORMALS: Normal to inspection, nondistended, normoactive bowel sounds present and Soft to palpation PALPATION: Yes Soft to palpation and Yes Tenderness to palpation present (GI) (She is now able to report some tenderness on abdominal palpation. Lower.) Extremity: COMMON NORMALS: no joint enlargement GENERAL: Yes edema (2+) Neuro: COMMON NORMALS: moves all extremities (Very weak. Weakly attempts to squeeze her hands.) SENSORIUM/ORIENTATION: Yes lethargic (Wakes up. More alert today. Attempted to answer some questions.) Skin: COMMON NORMALS: no rashes or lesions noted GENERAL SKIN EXAM: no rashes or lesions noted Urinary Catheter Management^: [place]: Cath Placed During This Visit: yes Reason for Continuing Indwelling Catheter: Accurate Measurement of Urinary Output in Critically Ill Patients Urinary Catheter Date of Insertion: 02/27/20 Urinary Catheter Time of Insertion: 01:30 Data : 03/07/20 02:30 03/07/20 02:30 Micro: Microbiology 03/03/20 09:45 Urine Culture - Final Urine,Clean Catch Annie albicans A&P Assessment and plan (1) Acute hypoxemic respiratory failure due to COVID-19: With improvement in FiO2 requirement today. Also much more alert. Still somewhat confused. Was able to tolerate high flow cannula for a while today. With plans for NG placement with platelet transfusion, however, eventually tired out and had to be switched back to BiPAP. Will reattempt again tomorrow, and hopefully will do even better. Or if mentation continues to improve, getting stronger, potentially can get speech therapy evaluation. Lovenox was held overnight likely due to low platelets. Received platelet transfusion. We will recheck platelet level. Resume Lovenox at 30mg BID if adequate Tx response. Repeat Lasix. Steroid switched to decadron 6mg. Weaning down on precedex. Hypernatremia is better. Ammonia is 52. Some abdominal tenderness. Reported resolved. If recurs/persists image w CT. PT and OT as toelrating. Status: Acute (2) Hypernatremia: Better. Appreciate nephrology recommendations. Status: Acute (3) Septic shock: Blood pressure improved. Tachycardic this evening. Heart rate appears were better in the morning. Last night and overnight she was on quite a bit of Precedex, this was weaned down. She came down to as low as 0.2. Discussed with nursing staff, if tachycardia persists and not related to pain, may be secondary to withdrawal from Precedex, may need to slightly increase the rate and withd abbey slowly. If any recurrent abdominal pain, obtain CT abdomen pelvis. Peripheral smear without schistocytes, however, with some noted dysmorphic metamyelocytes and myelocytes. Suspect likely secondary to infection. Possibly folic acid deficiency. As recommended by pathology flow cytometry is ordered to exclude myeloid disorder. Transfuse platelets. Suspected underlying fibrosis or possibly cirrhosis. Recheck coagulation studies. Diflucan for candidal UTI. Attempt to DC TPN if can successfully maintain oxygen on cannula and allow for NG placement and PLT respond to transfusion. Continue broad-spectrum empiric antibiotics for now. Status: Acute (4) Acute respiratory distress syndrome (ARDS) due to 2019 novel coronavirus: As above. Status: Acute (5) PAT (acute kidney injury): Improved. Status: Acute (6) Thrombocytopenia: 2 units platelets today. Recheck platelets. Resume moderate dose Lovenox if adequate response. Continue treatment of sepsis. Status: Acute (7) Anemia: Responded well to PRBC transfusion. Normal B12, low folic acid. Folic acid added to TPN. Would benefit from folic acid replacement once able to administer enteric feeds. Will give custom banana bag w small volume of d5, folic acid, mva, Mg. Status: Acute (8) Metabolic acidosis: Status: Acute (9) Hypoglycemia: Monitor. Status: Acute (10) Agranulocytosis: Status: Acute (11) DIC (disseminated intravascular coagulation): Appears stabilized. Status: Acute (12) Hepatic encephalopathy: [place] lactulose. Ammonia still high. Monitor. Status: Acute (13) Protein-calorie malnutrition: TPN Status: Acute Qualifiers: Protein-calorie malnutrition severity: unspecified severity Qualified C ode(s): E46 - Unspecified protein-calorie malnutrition (14) Opioid dependence: Status: Acute Qualifiers: Substance use status: uncomplicated Qualified Code(s): F11.20 - Opioid dependence, uncomplicated (15) Gastroparesis: Status: Acute (16) Hypokalemia: Replaced. Status: Acute Additional A&P Information Hepatic encephalopathy: Ammonia is better. Suspected urea cycle disorder related to bariatric surgery. Lactulose enemas as tolerating. Septic Shock: Resolved. Off pressors. As above for sepsis. Recent echo EF 60%, no RWMA, gr 1 diastolic dysfunction from 04/2019 Lipase not elevated, CT abdomen non specific colitis Hypocalcemia: Corrected with albumin. Transmainitis, LFTs elevated but improved over early Nov Gastroparesis, poor po intake resulting in malnutrition, NPO for now, high risk for aspiration History of partial gastrectomy: Would benefit from vitamin D supplementation. Check vitamin A, E, K, copper. Continue admission for assessment management of respiratory failure, encephalopathy, viral pneumonia, candidal UTI, wean of dependence on BiPAP, attempt to establish enteric feeding, replace blood products as needed, continue PT. Attestations Medical Necessity Statement*: Continue admission for assessment management of respiratory failure, encephalopathy, severe COVID-19 infection, wean off dependence on BiPAP, establish enteric feeding, replace blood products including thrombocytopenia, treat candidal UTI, mobilize. 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 Hospice Manager for [facility] Fwd Exam Comprehensive Diagnoses Acute hypoxemic respiratory failure due to COVID-19 U07.1; J96.01 Hypernatremia E87.0 Septic shock A41.9; R65.21 Acute respiratory distress syndrome (ARDS) due to 2019 novel coronavirus U07.1; J80 PAT (acute kidney injury) N17.9 Thrombocytopenia D69.6 Anemia D64.9 Metabolic acidosis E87.2 Hypoglycemia E16.2 Agranulocytosis D70.9 DIC (disseminated intravascular coagulation) D65 Hepatic encephalopathy K72.90 Protein-calorie malnutrition E46 Protein-calorie malnutrition severity: unspecified severity Opioid dependence F11.20 Substance use status: uncomplicated Gastroparesis K31.84 Hypokalemia E87.6
[2020-03-07 20:29] LABS: Glucose Point of Care 161 mg/dL (70-110)
[2020-03-07] MEDS: dexamethasone 4 mg/mL INJ 6 MG IVP (20:37)
[2020-03-07] MEDS: FUROsemide 10 mg/mL SDV 4mL 40 MG IVP (20:49)
--- NOTE | 2020-03-07 21:16 | PC.NURSE ---
During nursing shift assessment, RN found patient's blood pressure not registering on monitor. Multiple attempts of changing cords/cuffs/positions were made, and manuals checks/reverified by 2 VICU RN's despite all other efforts. Patient c/o pain all over generalized body, and in abdomen. Hydromorphone IVP given in efforts to decrease overall pain ratings. MD Celeste phoned for update on patient condition. He gave v/o for Precedex to be titrated up as needed based on pt's HR and BP, as he believes some tachycardia exhibited may be from decreased titration of precedex drip and withdrawal. Bag of Precedex was hanging with a drip running @0.2mcg/kg, and had infused some when this RN came on shift. However, bag was not scanned in. This RN scanned bag, and based on Tachycardia of 120's-130's, titrated based on findings. (See mar flowsheet). MD Booker also gave v/o for if patient continued to have tender pain on palpation, to order a CT of abdomen/pelvis.
[2020-03-07 21:20] LABS: Platelet Count 67 10^3/cmm (130-400)
--- NOTE | 2020-03-07 22:00 | PC.NURSE ---
New Order: Patient c/o increased pain despite hydromorphone admin, with sustained tachycardia despite efforts with precedex titration. MD director operations broadcast gave orders for additional order for Hydromorphone to be given IVP that would not effect the Q4H PRN order already established. Patient c/o pain decreased after admin and precedex was able to be titrated back down after admin.
[2020-03-08] VITALS (89 sets, daily range): BP systolic 125–158; BP diastolic 73–101; PULSE 73–133; RESP 7–28; TEMP 36.6–37.4; O2SAT 78–97
[2020-03-08 00:21] LABS: Glucose Point of Care 231 mg/dL (70-110)
[2020-03-08] MEDS: pantoprazole 40 mg SDV IVP ×2 (00:42→12:16)
[2020-03-08] MEDS: enoxaparin 30 mg/0.3 mL Syringe SUBCUT ×2 (00:44→14:29)
[2020-03-08] MEDS: ipratropium-albuterol 3 mL Neb INHALATION ×6 (00:49→19:48)
[2020-03-08] MEDS: HYDROmorphone 1 mg/mL INJ 1 mL IVP ×4 (03:46→20:31)
[2020-03-08 03:49] LABS: Glucose Point of Care 213 mg/dL (70-110)
[2020-03-08 04:21] LABS: Basophils % 0.2 %; Hemoglobin 7.9 g/dL (11.5-15.3); Lymphocytes # 0.5 10^3/uL (0.8-4.8); Lymphocytes % 5.9 %; Mean Corpuscular HGB Conc 32.9 g/dL (30.0-36.0); Mean Corpuscular Hemoglobin 31.2 pg (28.0-34.0); Mean Corpuscular Volume 94.9 fL (81-99); Monocytes # 0.5 10^3/uL (0.2-0.9); Monocytes % 5.3 %; Neutrophils # 7.55 10^3/uL (1.8-7.7); Neutrophils % 84.4 %; Nucleated Red Blood Cells # 0.1 /100WBC; Nucleated Red Blood Cells % 0.6 %; Platelet Count 40 10^3/cmm (130-400); Red Blood Count 2.53 10^6/uL (4.1-5.3); Red Cell Distribution Width 20.7 % (12.1-15.1)
[2020-03-08 04:48] LABS: Alanine Aminotransferase 13 U/L (0-33); Albumin Level 2.6 g/dL (3.5-5.2); Alkaline Phosphatase 164 IU/L (35-105); Anion Gap 14.9 (5-19); Aspartate Amino Transferase 20 U/L (0-32); Blood Urea Nitrogen 40 mg/dL (6-20); C Reactive Protein 59.8 mg/L (0.0-4.9); Calcium 8.3 mg/dL (8.5-10.5); Carbon Dioxide 30 mmol/L (22-29); Chloride 102 mmol/L (98-107); Globulin 1.8 g/dL (1.3-4.6); Glomerular Filtration Rate 107.6 mL/min (90-130); Glucose 190 mg/dL (65-115); Lipase 12 U/L (13-60); Osmolality Calculated 311 mOsm/kg (285-295); Potassium 3.9 mmol/L (3.5-5.1); Sodium 143 mmol/L (136-145); Total Bilirubin 1.6 mg/dL (0.15-1.2); Total Protein 4.4 g/dL (6.6-8.7)
[2020-03-08 05:30] LABS: INR 1.44 (0.8-1.2)
[2020-03-08 05:31] LABS: Partial Thromboplastin Time 33.6 SECONDS (23.9-36.7)
[2020-03-08 05:33] LABS: Fibrinogen 198 mg/dL (174-498)
[2020-03-08] MEDS: budesonide 0.5 mg/2 mL Neb INHALATION ×2 (08:20→19:48)
[2020-03-08 08:27] LABS: Platelet Count 40 10^3/cmm (130-400)
[2020-03-08 08:31] LABS: Glucose Point of Care 179 mg/dL (70-110)
[2020-03-08 08:44] LABS: D Dimer 2.36 ug/mIFEU (0-0.59)
[2020-03-08] MEDS: fluconazole premix 100 MG in empty flexible container 1 EACH 50 MG IV (09:56)
--- NOTE | 2020-03-08 11:07 | PC.OT ---
OT tx attempted. Nursing reports pt unable to tolerate therapies today and request holding services. Therapy to continue to monitor pt status.
[2020-03-08 12:14] LABS: Glucose Point of Care 202 mg/dL (70-110)
[2020-03-08] MEDS: hyDRALAzine 20 mg/mL INJ 1 mL 5 MG IVP (13:27)
--- NOTE | 2020-03-08 14:15 | PC.NURSE ---
Patients mother called for update, did inform her that we have been trying to wean off Bipap but, have been unsuccessful with the high flow nasal cannula. She did inform me that her daughter doesn't want to be intubated. Did try to educated her about patients need for Bipap and not intubation. When asked about patients history and lifestyle before illness she gave a list of prescription drugs that patient was abusing. She stated that patient has been using Tylenol PM more than daily for years. Patient has also been abusing Fentanyl patches, Oxycodone, Ativan, Klonopin and another drug but, she couldn't remember that name of it. She stated that she failed at rehab and [facility] [place] [facility] Ativan, Celexa and Klonopin. 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 Mother also states that patient has had stomach pain, pancreatits and several hospitalizations for ulcers in the past 10 years.
--- NOTE | 2020-03-08 15:16 | CTR_ITS ---
PROCEDURE INFORMATION: Exam: CT Abdomen And Pelvis Without Contrast Exam date and time: 03/08/2020 3:18 PM Age: 44 years old Clinical indication: Abdominal pain; Generalized; Prior surgery; Surgery date: 6+ months; Surgery type: Gb, appy; Patient HX: C/O R flank/ruq abd pain w HX of pancreatitis; Additional info: Abdominal pain, generalized, HX chronic pain rlq, R flank TECHNIQUE: Imaging protocol: Computed tomography of the abdomen and pelvis without contrast. Radiation optimization: All CT scans at this facility use at least one of these dose optimization techniques: automated exposure control; mA and/or kV adjustment per patient size (includes targeted exams where dose is matched to clinical indication); or iterative reconstruction. COMPARISON: CT chest abd pel wo con 02/27/2020 1:31 AM RADIATION DOSE METRICS: Total DLP (mGy-cm): 899.06 FINDINGS: Tubes, catheters and devices: A balloon bladder catheter is present. Lungs: Previously visualized dense airspace opacities in both lower lobes is decreasing in size and extent but now there is diffuse moderate hazy ground-glass opacity in both lungs were previously there were some areas of normal lung parenchyma. This diffuse opacity is concerning for diffuse moderate pneumonitis, ARDS or CHF. Pleural space: There is a small right pleural effusion. Liver: There is a diffuse decrease in hepatic parenchymal density, consistent with fatty infiltration. There is hepatomegaly. Gallbladder and bile ducts: Normal. No calcified stones. No ductal dilation. Pancreas: Normal. No ductal dilation. No definite pancreatitis. There is diffuse haziness of the mesenteric fat compatible with anasarca. Spleen: Normal. No splenomegaly. Adrenal glands: Normal. No mass. Kidneys and ureters: There is no evidence of hydronephrosis. There is no evidence of renal calcifications. Stomach and bowel: There is no evidence of intestinal perforation or obstruction. A rectal tube is present. Previously visualize wall thickening in the right and left colon is improving. The loops of small bowel have an appropriate appearance. No definite enteritis on this exam. Appendix: No evidence of appendicitis. Intraperitoneal space: There is an unchanged small quantity of ascites. No abscess or free intraperitoneal air. Vasculature: Unremarkable.No abdominal aortic aneurysm. Lymph nodes: Unremarkable.No enlarged lymph nodes. Urinary bladder: Unremarkable as visualized. Reproductive: Unremarkable as visualized. Bones/joints: Unremarkable. No acute fracture. Soft tissues: There is diffuse induration of the subcutaneous fat and mesenteric fat compatible with anasarca type changes. Other findings: Postoperative clips in the upper abdomen are noted. CT/CT abdomen pelvis wo con [id number] IMPRESSION: 1. There is diffuse induration of the subcutaneous fat and mesenteric fat compatible with anasarca type changes. Unchanged small quantity of ascites. 2. Previously visualize wall thickening in the right and left colon is improving. 3. Dense basilar airspace opacities are improving but now there is also diffuse moderate ground-glass opacity in the lungs concerning for diffuse pneumonitis, ARDS or CHF. Radiation Dose CTDIVOL = (mGy): DLP = 899.06 (mGy-cm)
--- NOTE | 2020-03-08 15:19 | P.PN_ITS ---
Subjective Subjective: Interval history: When asked how she is doing, says she is not okay, but she is rather confused, does not elaborate as to what may be wrong. She states that she may have had surgery, and needs to have her abdomen and/or tongue fixed, although cannot elaborate what kind of surgery. Appears to be part of her delirium. This appears to be similar to delirium during admission in the past when she was found to have acute liver failure, with confusion stating that a surgeon was going to come and perform brain surgery on her. She states that she does want to get stronger. Vitals/I&O/Wt Last Vital Signs Temp 99.4 F 03/08/20 14:49 Pulse 112 H 03/08/20 14:25 Resp 22 H 03/08/20 14:25 BP 144/92 03/08/20 12:00 Pulse Ox 92 03/08/20 14:25 03/08/20 03/08/20 03/08/20 06:59 14:59 22:59 Intake Total 402.075 / 1994.933 686.975 / 686.975 Output Total 1350 / 1750 650 / 650 Balance -947.925 / 244.933 36.975 / 36.975 Weight last 48 hrs Weight 82 kg Physical Exam Const: COMMON NORMALS: no acute distress GENERAL APPEARANCE: lethargic (Wakes up. More alert today. Attempted to answer some questions.) O RIENTATION/CONSCIOUSNESS: Yes lethargic (Wakes up. More alert today. Attempted to answer some questions.) OTHER: Today she is more alert. Somewhat stronger. High flow cannula on for a while, however, subsequently getting tired and needs to again transition to BiPAP. HENMT: COMMON NORMALS: oropharynx normal Neck/C-Spine: COMMON NORMALS: no JVD Resp: COMMON NORMALS: normal respiratory effort AUSCULTATION: crackles (Fewer crackles especially on the left, some residual right base.) Cardio: COMMON NORMALS: no JVD, regular rhythm, S1 normal heart sound present, S2 normal heart sound present and No murmurs present (Cardio) RHYTHM: regular rhythm HEART SOUNDS: S1 normal heart sound present and S2 normal heart sound present GI: COMMON NORMALS: Normal to inspection, nondistended, normoactive bowel sounds present and Soft to palpation PALPATION: Yes Soft to palpation and Yes Tenderness to palpation present (GI) (She is now able to report some tenderness on abdominal palpation. Lower.) Extremity: COMMON NORMALS: no joint enlargement GENERAL: Yes edema (2+) Neuro: COMMON NORMALS: moves all extremities (Very weak. Weakly attempts to squeeze her hands.) SENSORIUM/ORIENTATION: Yes lethargic (Wakes up. More alert today. Attempted to answer some questions.) Skin: COMMON NORMALS: no rashes or lesions noted GENERAL SKIN EXAM: no rashes or lesions noted Urinary Catheter Management^: Alcantara: Cath Placed During This Visit: yes Reason for Continuing Indwelling Catheter: Accurate Measurement of Urinary Outpu t in Critically Ill Patients Urinary Catheter Date of Insertion: 02/27/20 Urinary Catheter Time of Insertion: : Data : 03/08/20 03:45 03/08/20 03:45 Micro: Microbiology 03/02/20 18:40 Blood Culture - Final Blood NO GROWTH AFTER 5 DAYS 03/02/20 18:30 Blood Culture - Final Blood NO GROWTH AFTER 5 DAYS 03/03/20 09:45 Urine Culture - Final Urine,Clean Catch Annie albicans A&P Assessment and plan (1) Acute hypoxemic respiratory failure due to COVID-19: This morning failed high flow cannula, desaturated and was taking it off, and had to be switched to BiPAP. Trying again this afternoon. Tolerating a bit, although saturation with some fluctuation and again pulls it off. Tried to see if a sitter is available to help maintain cannula in place, but no staff ana ilable today. Will give Lasix 40mg IV. Continue attempts to transition to high flow cannula, with BiPAP support intermittently as needed. If mentation improves, able to maintain high flow cannula, not pulling on things, may consider placement of NG tube. She is confused. Will recheck ammonia level. Has been receiving lactulose enemas, however, intermittently complaining of abdominal pain. Prescription with her mother she has history of retracted chronic pain, especially in right lower quadrant, right flank which is been unexplained after extensive work-up. Difficult to say whether some of the symptoms may be related to the chronic symptoms, however, will assess with CT abdomen pelvis. Lovenox was resumed on moderate dose after platelet transfusion. Steroid switched to decadron 6mg every 24 hours. Weaning down on precedex, more consistently more alert, less restless off of it. Hypernatremia is better. PT and OT as toelrating. Status: Acute (2) Thrombocytopenia: Additional unit of platelets today. Resumed moderate dose Lovenox. Continue treatment of sepsis. Peripheral smear without schistocytes, however, with some noted dysmorphic metamyelocytes and myelocytes. Suspect likely secondary to infection. Possibly folic acid deficiency. As recommended by pathology flow cytometry is ordered to exclude myeloid disorder. Status: Acute (3) Septic shock: Septic shock had resolved. Possible ongoing sepsis secondary to possible superimposed bacterial infection for which continues on empiric antibiotics. Also candidal UTI for which continues on Diflucan. Additional assessment by CT abdomen pelvis due to abdominal pain. Suspected underlying fibrosis or possibly cirrhosis. Fibrinogen 200. D-dimer continuing to improve. Down to 2.36. Status: Acute (4) Acute respiratory distress syndrome (ARDS) due to 2019 novel coronavirus: As above. Status: Acute (5) Anemia: Monitor for any recurrence. Hemoglobin will bit worse today at 7.9. Additional platelet transfusion 1 unit. Checking vitamin K level. Normal B12, low folic acid. Folic acid added to TPN. Would benefit from folic acid replacement once able to administer enteric feeds. Status: Acute (6) PAT (acute kidney injury): Improved. Status: Acute (7) Hepatic encephalopathy: Ammonia is better. Suspected urea cycle disorder related to bariatric surgery. Lactulose enemas as tolerating. Status: Acute (8) Protein-calorie malnutrition: TPN Status: Acute Qualifiers: Protein-calorie malnutrition severity: unspecified severity Qualified Code(s): E46 - Unspecified protein-calorie malnutrition (9) Hypernatremia: Better. Status: Acute (10) Metabolic acidosis: Status: Acute (11) Hypoglycemia: Monitor. Status: Acute (12) Agranulocytosis: Status: Acute (13) DIC (disseminated intravascular coagulation): Appears stabilized. Status: Acute (14) Opioid dependence: Status: Acute Qualifiers: Substance use status: uncomplicated Qualified Code(s): F11.20 - Opioid dependence, uncomplicated (15) Gastroparesis: Poor po intake resulting in malnutrition, NPO for now, high risk for aspiration Status: Acute (16) Hypokalemia: Replaced. Status: Acute Additional A&P Information Recent echo EF 60%, no RWMA, gr 1 diastolic dysfunction from 04/2019 Hypocalcemia: Corrected with albumin. Transmainitis, LFTs elevated but improved over early Nov History of partial gastrectomy: Would benefit from vitamin D supplementation. Check vitamin A, E, K, copper. Continue admission and attempts to wean off BiPAP dependence to high flow cannula, management of delirium, encephalopathy, with goal of reestablishing enteral nutrition, thrombocytopenia, continue attempts to mobilize, additional assessment of abdominal pain in the setting of possible sepsis, candidal infection. Severe COVID-19. Attestations Medical Necessity Statement*: Continue admission and attempts to wean off BiPAP dependence to high flow cannula, management of delirium, encephalopathy, with goal of reestablishing enteral nutrition, thrombocytopenia, continue attempts to mobilize, additional assessment of abdominal pain in the setting of possible sepsis, candidal infection. Severe COVID-19. 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 Online Banking Specialist for [facility] Fwd Diagnoses Acute hypoxemic respiratory failure due to COVID-19 U07.1; J96.01 Thrombocytopenia D69.6 Septic shock A41.9; R65.21 Acute respiratory distress syndrome (ARDS) due to 2019 novel coronavirus U07.1; J80 Anemia D64.9 PAT (acute kidney injury) N17.9 Hepatic encephalopathy K72.90 Protein-calorie malnutrition E46 Protein-calorie malnutrition severity: unspecified severity Hypernatremia E87.0 Metabolic acidosis E87.2 Hypoglycemia E16.2 Agranulocytosis D70.9 DIC (disseminated intravascular coagulation) D65 Opioid dependence F11.20 Substance use status: uncomplicated Gastroparesis K31.84 Hypokalemia E87.6
[2020-03-08] MEDS: FUROsemide 10 mg/mL SDV 4mL 40 MG IVP (15:32)
[2020-03-08 15:39] LABS: Glucose Point of Care 123 mg/dL (70-110)
[2020-03-08 16:40] LABS: Ammonia 25 umol/L (11-51)
[2020-03-08 20:25] LABS: Glucose Point of Care 165 mg/dL (70-110)
[2020-03-08] MEDS: dexamethasone 4 mg/mL INJ 6 MG IVP (20:30)
[2020-03-09] VITALS (42 sets, daily range): BP systolic 126–179; BP diastolic 73–126; PULSE 79–128; RESP 13–37; TEMP 36.1–37; O2SAT 83–99; BMI 31.0
[2020-03-09] MEDS: ipratropium-albuterol 3 mL Neb INHALATION ×6 (00:06→20:29)
[2020-03-09 00:25] LABS: Glucose Point of Care 187 mg/dL (70-110)
[2020-03-09] MEDS: HYDROmorphone 1 mg/mL INJ 1 mL IVP ×2 (00:40→21:37)
[2020-03-09] MEDS: pantoprazole 40 mg SDV IVP ×2 (00:40→14:54)
[2020-03-09] MEDS: LORazepam 2 mg/mL INJ 1 mL 0.25 MG IVP ×2 (00:40→21:37)
[2020-03-09] MEDS: enoxaparin 30 mg/0.3 mL Syringe SUBCUT ×2 (01:30→14:53)
[2020-03-09 03:50] LABS: Basophils % 0.2 %; Hematocrit 21.2 % (37.0-47.0); Hemoglobin 6.7 g/dL (11.5-15.3); Lymphocytes # 0.4 10^3/uL (0.8-4.8); Lymphocytes % 5.3 %; Mean Corpuscular HGB Conc 31.6 g/dL (30.0-36.0); Mean Corpuscular Hemoglobin 30.7 pg (28.0-34.0); Mean Corpuscular Volume 97.2 fL (81-99); Monocytes # 0.4 10^3/uL (0.2-0.9); Neutrophils # 6.85 10^3/uL (1.8-7.7); Neutrophils % 84.5 %; Nucleated Red Blood Cells # 0.1 /100WBC; Nucleated Red Blood Cells % 0.7 %; Platelet Count 30 10^3/cmm (130-400); Red Blood Count 2.18 10^6/uL (4.1-5.3); Red Cell Distribution Width 19.4 % (12.1-15.1); White Blood Count 8.1 10^3/uL (4.0-10.0)
[2020-03-09 03:52] LABS: INR 1.43 (0.8-1.2); Partial Thromboplastin Time 28.8 SECONDS (23.9-36.7)
[2020-03-09 03:53] LABS: Fibrinogen 202 mg/dL (174-498)
[2020-03-09 04:00] LABS: C Reactive Protein 38.6 mg/L (0.0-4.9)
[2020-03-09 04:01] LABS: Alanine Aminotransferase 18 U/L (0-33); Albumin Level 2.3 g/dL (3.5-5.2); Alkaline Phosphatase 147 IU/L (35-105); Anion Gap 11.4 (5-19); Aspartate Amino Transferase 34 U/L (0-32); Blood Urea Nitrogen 35 mg/dL (6-20); Calcium 8.2 mg/dL (8.5-10.5); Carbon Dioxide 33 mmol/L (22-29); Chloride 105 mmol/L (98-107); Globulin 2.1 g/dL (1.3-4.6); Glomerular Filtration Rate 107.6 mL/min (90-130); Glucose 186 mg/dL (65-115); Osmolality Calculated 315 mOsm/kg (285-295); Potassium 3.4 mmol/L (3.5-5.1); Sodium 146 mmol/L (136-145); Total Bilirubin 1.6 mg/dL (0.15-1.2); Total Protein 4.4 g/dL (6.6-8.7)
[2020-03-09 04:02] LABS: Vancomycin Trough 11.2 ug/mL (10-15)
[2020-03-09 04:24] LABS: Glucose Point of Care 150 mg/dL (70-110)
[2020-03-09 04:50] LABS: Slide Review Slide Review Perform
[2020-03-09 05:58] LABS: Platelet Count 30 10^3/cmm (130-400)
[2020-03-09] MEDS: budesonide 0.5 mg/2 mL Neb INHALATION ×2 (08:10→20:29)
[2020-03-09 08:40] LABS: Glucose Point of Care 165 mg/dL (70-110)
[2020-03-09] MEDS: fluconazole premix 200 MG/100 ML PREMIX 100 MG IV (09:10)
--- NOTE | 2020-03-09 11:00 | PC.NURSE ---
Report received from CLAUDIA Goldman. care assumed.
[2020-03-09 11:44] LABS: Glucose Point of Care 162 mg/dL (70-110)
--- NOTE | 2020-03-09 13:49 | XR_ITS ---
WS: [id number] PORTABLE CHEST HISTORY: hypoxia COMPARISON: 03/03/2020 RIGHT central line via the RIGHT jugular vein tip projecting over the RIGHT heart. Mild pulmonary venous congestion has slightly improved since the prior study. No pneumonia. No pleura l effusion or pneumothorax. Cardiac size: Normal. Mediastinum/Aorta: Normal mediastinum. No osseous abnormality seen. Prior cholecystectomy. XR/XR chest 1V portable [id number] IMPRESSION: 1. Mild pulmonary venous congestion with slight improvement since the prior st udy. 2. No cardiomegaly.
[2020-03-09] MEDS: lidocaine 1% 5 ML in potassium chloride premix 100 ML 50 ML IV (14:56)
[2020-03-09] MEDS: FUROsemide 10 mg/mL SDV 4mL 40 MG IVP (15:10)
--- NOTE | 2020-03-09 15:29 | PC.OT ---
OT tx attempted. Pt's Hgb and platelets are low. OT to be withheld until post transfusion and pt's tolerance improved.
[2020-03-09 16:35] LABS: Glucose Point of Care 180 mg/dL (70-110)
[2020-03-09] MEDS: sodium chloride 0.9% (100 ml) 100 ML (17:24)
--- NOTE | 2020-03-09 18:29 | PC.NURSE ---
SHIFT SUMMARY: Pt rested in bed this shift. She has been able to answer some questions appropriately. She was on BiPap this am. Changed to Heated high flow his afternoon, 55 liters/ 90%, her O2 sats stayed up in the 90'S. She had significant work of breathing with accessory muscle use and sometimes appeared to be panting. Her sats plummeted quickly to 50's SPO2 after about an hour of working at breathing.l she was changed back to BiPap. Her Hgb less than 7 this am. She received a unit of platelets and 1 unit of PRBCs. She remains on Precedex, no change in rate.; TPN and lipids, antibiotics. Urine remains dark but clear, 1350ml output. She received Lasix this afternoon. Her mother called this afternoon, requesting Dr to write a letter about pt's confusion so she could get guardianship and start Medicare application. Dr Celeste notified of request.
--- NOTE | 2020-03-09 18:54 | PM.PN ---
Subjective Subjective: Interval history: Today she appears somewhat tired, but actually appears to also be more lucid. She knows she is in the hospital. She states the year correctly as 2019. Mouth is very dry. It is difficult for her to speak. No chest pain. No significant abdominal pain. Vitals/I&O/Wt Last Vital Signs Temp 97.7 F 03/09/20 17:00 Pulse 93 03/09/20 18:00 Resp 22 H 03/09/20 18:00 BP 146/93 03/09/20 18:00 Pulse Ox 95 03/09/20 18:00 03/09/20 03/09/20 03/09/20 06:59 14:59 22:59 Intake Total 100 / 2377.175 943 / 943 105 / 1048 Output Total 800 / 4750 600 / 600 750 / 1350 Balance -700 / -2372.825 343 / 343 -645 / -302 Weight last 48 hrs Weight 82 kg Weight 82 kg Physical Exam Const: COMMON NORMALS: no acute distress and patient oriented x3 GENERAL APPEARANCE: lethargic (More alert. Answers some questions.) ORIENTATION/CONSCIOUSNESS: Yes lethargic (More alert. Answers some questions.) OTHER: More lucid. Weak. HENMT: COMMON NORMALS: oropharynx normal Neck/C-Spine: COMMON NORMALS: no JVD Resp: COMMON NORMALS: normal respiratory effort AUSCULTATION: crackles (More crackles L>R) Cardio: COMMON NORMALS: no JVD, regular rhythm, S1 normal heart sound present, S2 normal heart sound present and No murmurs present (Cardio) RHYTHM: regular rhythm HEART SOUNDS: S1 normal heart sound present and S2 normal heart sound present GI: COMMON NORMALS: Normal to inspection, nondistended, normoactive bowel sounds present and Soft to palpation PALPATION: Yes Soft to palpation and Yes Tenderness to palpation present (GI) (She is now able to report some tenderness on abdominal palpation. Lower.) Extremity: COMMON NORMALS: no joint enlargement GENERAL: Yes edema (3+) Neuro: COMMON NORMALS: patient oriented x3 and moves all extremities (Very weak. Weakly attempts to squeeze her hands.) SENSORIUM/ORIENTATION: Yes lethargic (More alert. Answers some questions.) Skin: COMMON NORMALS: no rashes or lesions noted GENERAL SKIN EXAM: no rashes or lesions noted Urinary Catheter Management^: [place]: Cath Placed During This Visit: yes Reason for Continuing Indwelling Catheter: Accurate Measurement of Urinary Output in Critically Ill Patients Urinary Catheter Date of Insertion: 02/27/20 Urinary Catheter Time of Insertion: :30 Data : 03/09/20 02:10 03/09/20 02:10 A&P Assessment and plan (1) Acute hypoxemic respiratory failure due to COVID-19: Today she is little bit more lucid. She has been having trouble maintaining high flow cannula. For 1 oxygenation does appear to sometimes fluctuate especially if she forgets that she needs to wear her cannula, turns her head, or pulls it off accidentally. Needs frequent redirection. We will try to get a one-to-one sitter so that we can try to transition more to high flow cannula. Repeat Lasix today due to worsening crackles. Some increase in weight. Peripheral edema. As platelets further decreased, recurrent anemia will change Lovenox Dose to 30 mg Every 24 hours. Additional platelet and PRBC transfusion today. Goal continues to be to attempt to transition to high flow cannula, transition to enteric feeding if possible with NG tube placement to allow discontinuation of TPN. Continue to reorient. Attempts to mobilize. CT abdomen pelvis shows improving colitis. Lovenox was resumed on moderate dose after platelet transfusion. Decadron 6mg every 24 hours. PT and OT as toelrating. Status: Acute (2) Thrombocytopenia: Additional platelets today. Decrease Lovenox dose. Resumed moderate dose Lovenox. Continue treatment of sepsis. Peripheral smear without schistocytes, however, with some noted dysmorphic metamyelocytes and myelocytes. Suspect likely secondary to infection. Possibly folic acid deficiency. As recommended by pathology flow cytometry is ordered to exclude myeloid disorder. HIT antibody negative. Status: Acute (3) Septic shock: Septic shock had resolved. Possible ongoing sepsis secondary to possible superimposed bacterial infection for which continues on empiric antibiotics. Also candidal UTI for which continues on Diflucan. Additional assessment by CT abdomen pelvis due to abdominal pain shows improving colitis. Suspected underlying liver fibrosis or possibly cirrhosis. Fibrinogen 200. D-dimer continuing to improve. Status: Acute (4) Acute respiratory distress syndrome (ARDS) due to 2019 novel coronavirus: As above. Status: Acute (5) Anemia: Additional platelet transfusion 1 unit prbc, PLT. Reduce Lovenox dose to 30mg Q24h. Checking vitamin K level. Copper level. Normal B12. Folic acid deficiency. Folic acid added to TPN. Would benefit from folic acid replacement once able to administer enteric feeds. Status: Acute (6) PAT (acute kidney injury): Improved. Status: Acute (7) Hepatic encephalopathy: Ammonia is better. Suspected urea cycle disorder related to bariatric surgery. Lactulose enemas as tolerating. Given quite severe swings in oxygenation previously, with reported desaturation very rapidly when at times she would pull off BiPAP, despite almost immediate replacement anoxic brain injury is possible. Difficult to tell at this time due to still ongoing acute processes. She is not able to be assessed by MRI. This may need to be considered if there is no improvement in mental status despite improvement in other areas. Status: Acute (8) Protein-calorie malnutrition: TPN Status: Acute Qualifiers: Protein-calorie malnutrition severity: unspecified severity Qualified Code(s): E46 - Unspecified protein-calorie malnutrition (9) Hypernatremia: Better. Status: Acute (10) Metabolic acidosis: Status: Acute (11) Hypoglycemia: Monitor. Status: Acute (12) Agranulocytosis: Status: Acute (13) DIC (disseminated intravascular coagulation): Appears stabilized. Status: Acute (14) Opioid dependence: Status: Acute Qualifiers: Substance use status: uncomplicated Qualified Code(s): F11.20 - Opioid dependence, uncomplicated (15) Gastroparesis: Poor po intake resulting in malnutrition, NPO for now, high risk for aspiration Status: Acute (16) Hypokalemia: Additional replacement. Status: Acute Additional A&P Information Recent echo EF 60%, no RWMA, gr 1 diastolic dysfunction from 04/2019 Hypocalcemia: Corrected with albumin. Transmainitis, LFTs elevated but improved over early Nov History of partial gastrectomy: Would benefit from vitamin D supplementation. Check vitamin A, E, K, copper. Continue admission and attempts to wean off BiPAP dependence to high flow cannula, additional blood product replacement and assessment of thrombocytopenia, anemia, management of delirium, encephalopathy, with goal of reestablishing enteral nutrition, thrombocytopenia, continue attempts to mobilize, candidal infection. Severe COVID-19. Attestations Medical Necessity Statement*: Continue treatment of respiratory failure with severe COVID-19 infection, attempt to wean off BiPAP, transition to high flow cannula, additional assessment management of anemia, thrombocytopenia, management of delirium with multifactorial encephalopathy, attempt to reestablish enteral nutrition, treatment of candidal infection. 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[employer] Comprehensive Diagnoses Acute hypoxemic respiratory failure due to COVID-19 U07.1; J96.01 Thrombocytopenia D69.6 Septic shock A41.9; R65.21 Acute respiratory distress syndrome (ARDS) due to 2019 novel coronavirus U07.1; J80 Anemia D64.9 PAT (acute kidney injury) N17.9 Hepatic encephalopathy K72.90 Protein-calorie malnutrition E46 Protein-calorie malnutrition severity: unspecified severity Hypernatremia E87.0 Metabolic acidosis E87.2 Hypoglycemia E16.2 Agranulocytosis D70.9 DIC (disseminated intravascular coagulation) D65 Opioid dependence F11.20 Substance use status: uncomplicated Gastroparesis K31.84 Hypokalemia E87.6
--- NOTE | 2020-03-09 19:02 | PC.NURSE ---
Report given to CLAUDIA Gaytan.
[2020-03-09 20:06] LABS: Glucose Point of Care 141 mg/dL (70-110)
[2020-03-09] MEDS: dexamethasone 4 mg/mL INJ 6 MG IVP (20:34)
[2020-03-10] VITALS (80 sets, daily range): BP systolic 119–154; BP diastolic 80–104; PULSE 88–143; RESP 14–49; TEMP 36.6–38.1; O2SAT 60–99
[2020-03-10] MEDS: ipratropium-albuterol 3 mL Neb INHALATION ×7 (00:08→23:30)
[2020-03-10 01:27] LABS: Glucose Point of Care 155 mg/dL (70-110)
[2020-03-10] MEDS: pantoprazole 40 mg SDV IVP (01:39)
[2020-03-10] MEDS: HYDROmorphone 1 mg/mL INJ 1 mL IVP ×2 (02:27→15:38)
[2020-03-10] MEDS: LORazepam 2 mg/mL INJ 1 mL 0.25 MG IVP ×3 (02:27→14:27)
[2020-03-10 02:55] LABS: Basophils # 0.1 10^3/uL (0.0-0.1); Basophils % 0.5 %; Eosinophils % 0.1 %; Hematocrit 28.4 % (37.0-47.0); Hemoglobin 9.5 g/dL (11.5-15.3); Lymphocytes # 0.6 10^3/uL (0.8-4.8); Lymphocytes % 3.8 %; Mean Corpuscular HGB Conc 33.5 g/dL (30.0-36.0); Mean Corpuscular Hemoglobin 30.6 pg (28.0-34.0); Mean Corpuscular Volume 91.6 fL (81-99); Mean Platelet Volume 12.2 fL (7.4-10.4); Monocytes # 0.5 10^3/uL (0.2-0.9); Monocytes % 2.6 %; Neutrophils # 14.96 10^3/uL (1.8-7.7); Nucleated Red Blood Cells # 0.2 /100WBC; Nucleated Red Blood Cells % 1.1 %; Platelet Count 47 10^3/cmm (130-400); Red Cell Distribution Width 18.9 % (12.1-15.1)
[2020-03-10 03:20] LABS: Fibrinogen 300 mg/dL (174-498); INR 1.33 (0.8-1.2)
[2020-03-10 03:29] LABS: Ammonia 23 umol/L (11-51)
[2020-03-10 03:31] LABS: D Dimer 6.48 ug/mIFEU (0-0.59)
[2020-03-10 03:34] LABS: Alanine Aminotransferase 27 U/L (0-33); Albumin Level 2.6 g/dL (3.5-5.2); Alkaline Phosphatase 157 IU/L (35-105); Anion Gap 15.5 (5-19); Aspartate Amino Transferase 38 U/L (0-32); Blood Urea Nitrogen 30 mg/dL (6-20); Calcium 8.3 mg/dL (8.5-10.5); Carbon Dioxide 31 mmol/L (22-29); Chloride 102 mmol/L (98-107); Globulin 2.2 g/dL (1.3-4.6); Glomerular Filtration Rate 132.8 mL/min (90-130); Glucose 159 mg/dL (65-115); Osmolality Calculated 310 mOsm/kg (285-295); Potassium 3.5 mmol/L (3.5-5.1); Sodium 145 mmol/L (136-145); Total Bilirubin 1.8 mg/dL (0.15-1.2); Total Protein 4.8 g/dL (6.6-8.7)
[2020-03-10 03:35] LABS: Triglycerides 142 mg/dL (0-150)
[2020-03-10 04:20] LABS: Ferritin 1494 ng/mL (15-150)
[2020-03-10 04:34] LABS: Glucose Point of Care 182 mg/dL (70-110)
[2020-03-10 05:40] LABS: Platelet Count 47 10^3/cmm (130-400)
[2020-03-10] MEDS: budesonide 0.5 mg/2 mL Neb INHALATION ×2 (08:17→20:37)
[2020-03-10 08:43] LABS: Glucose Point of Care 147 mg/dL (70-110)
[2020-03-10] MEDS: fluconazole premix 200 MG/100 ML PREMIX 100 MG IV (09:59)
--- NOTE | 2020-03-10 10:30 | PC.NURSE ---
Pt placed on high flow by RT this am, pt placed in prone position. She tolerated it for 2 h ours. then sats decreased. RT at bedside, placed her back on BiPap. Back to supine position with HOB elevated. ONe on one sitter redirecting pt from pulling off BiPap mask.
--- NOTE | 2020-03-10 11:29 | PC.NURSE ---
Pt contiues to pull at Bipap mask, One on one sitter redirecting pt. Pt stated she wanted mask off. Discussed with her that it was helping her breathing, and she would probably without it, pt stated she still wanted it off. Pt still on precedex gtt. Will inform Physician of pt's statements when physician makes his rounds.
[2020-03-10 12:02] LABS: Glucose Point of Care 149 mg/dL (70-110)
[2020-03-10] MEDS: enoxaparin 30 mg/0.3 mL Syringe SUBCUT (14:33)
[2020-03-10] MEDS: FUROsemide 10 mg/mL SDV 10mL 60 MG IVP (15:03)
--- NOTE | 2020-03-10 15:04 | P.PN_ITS ---
Subjective Subjective: Interval history: She is acutely decompensated today, with worsening in oxygen saturation, this morning with new leukocytosis, low-grade fever. Tachycardia. Becoming somewhat restless this afternoon requiring a dose of Ativan. A few times trying to pull off her BiPAP mask. Appears to be able to tell her name, year. Appears to know she is in the hospital. Appears to have increased work of breathing, very weak. Earlier today was saying she did not want to BiPAP. Did not go to hypogranular and was proned for a while, on repositioning back desaturated, and so was switched back to BiPAP. Has been intermittently fighting BiPAP. Seem to indicate to the nurse that she wanted off. When asked what condition she has, does not able to state. When asked if she has had liver disease, states he is. When asked if she has been any other hospital apart from [facility] states no. When asked if she has pneumonia, stares straight, does not answer. At this time Therese does not have sufficient insight into her condition. Discussed deterioration in her condition with her mother. We discussed that this morning she appears to be having sepsis from either developing new source of infection or worsening prior infection. Discussed more respiratory difficul ty as well as dyssynchrony with BiPAP. Discussed that her condition may deteriorate further. As well fortunately not been successful to consistently have her switch over to high flow cannula to allow for NG tube placement and enteric feeding. Discussed that overall progress unfortunately is not working good if we are unable to control and support her ventilation, as well as, for TPN, transition to enteric feedings which has not been possible with BiPAP mask. Again considered additional options with possibility of continuation current supportive care, comfort care, versus more aggressive management with possible intubation if this were necessary. We discussed that if intubation were perf ormed this would be a high risk procedure with high risk mortality through the procedure, and without necessarily guarantee that overall she may make it through despite suport from the ventilator. However, without additional ventilator support, with how she has been declining her chances of survival otherwise would be very low should she not improve or decline any further. Her mother agrees that intubation if this became necessary would give her a better chance of making it through, and understands that although the goal that is temporary support, but this cannot be guaranteed, and either prolonged intubation may result, possibly with difficulty weaning, need of tracheostomy, etc, other disability, and still resulting in , and is agreeable to proceed if needed. Vitals/I&O/Wt Last Vital Signs Temp 100.4 F H 03/10/20 12:00 Pulse 129 H 03/10/20 14:44 Resp 33 H 03/10/20 12:00 BP 146/98 03/10/20 12:00 Pulse Ox 96 03/10/20 14:44 03/10/20 03/10/20 03/10/20 06:59 14:59 22:59 Intake Total 350 / 2858.2 1183.6 / 1183.6 Output Total 800 / 2750 900 / 900 Balance -450 / 108.2 283.6 / 283.6 Weight last 48 hrs Weight 82 kg Physical Exam Const: COMMON NORMALS: no acute distress and patient oriented x3 GENERAL APPEARANCE: lethargic (More alert. Answers some questions.) ORIENTATION/CONSCIOUSNESS: Yes lethargic (More alert. Answers some questions.) OTHER: More lucid. Weak. HENMT: COMMON NORMALS: oropharynx normal Neck/C-Spine: COMMON NORMALS: no JVD Resp: COMMON NORMALS: normal respiratory effort AUSCULTATION: crackles (L>R) Cardio: COMMON NORMALS: no JVD, regular rhythm, S1 normal heart sound present, S2 normal heart sound present and No murmurs present (Cardio) RHYTHM: regular rhythm HEART SOUNDS: S1 normal heart sound present and S2 normal heart sound present GI: COMMON NORMALS: Normal to inspection, nondistended, normoactive bowel sounds present and Soft to palpation PALPATION: Yes Soft to palpation and Yes Tenderness to palpation present (GI) (She is now able to report some tenderness on abdominal palpation. Lower.) Extremity: COMMON NORMALS: no joint enlargement GENERAL: Yes edema (3+) Neuro: COMMON NORMALS: patient oriented x3 and moves all extremities (Very weak. Weakly attempts to squeeze her hands.) SENSORIUM/ORIENTATION: Yes lethargic (More alert. Answers some questions.) Skin: COMMON NORMALS: no rashes or lesions noted GENERAL SKIN EXAM: no rashes or lesions noted Urinary Catheter Management^: Alcantara: Cath Placed During This Visit: yes Reason for Continuing Indwelling Catheter: Accurate Measurement of Urinary Output in Critically Ill Patients Urinary Catheter Date of Insertion: 02/27/20 Urinary Catheter Time of Insertion: 01:30 Data : 03/10/20 02:10 03/10/20 02:10 A&P Assessment and plan (1) Acute hypoxemic respiratory failure due to COVID-19: Worsened hypoxia today, requiring 100% FiO2 support on BiPAP, IPAP 10. Interim ventilator dyssynchrony. Given 1 dose of Ativan. Persistent edema, bilateral crackles. She is receiving 60 mg IV Lasix. TPN held. Discussed with her mother. Goals of care CODE STATUS updated. Discussed with pulmonology. If does not improve may need to proceed to intubation which in itself may be rather risky, but may be her only option should she not improve or decline further. Decadron 6mg every 24 hours. Empiric antibiotic. Diflucan. Will check w pharmacy if we have caspofungin. Repeat blood culture, fungal culture. Urine culture. Once able to, remove CVC, send tip for culture. At the moment very poor peripheral access. Status: Acute (2) Septic shock: As above. Severe COVID-19. Empiric antibiotics for possible superimposed bacterial pulmo nary infection. Candidal UTI. Additional assessment by CT abdomen pelvis due to abdominal pain shows improving colitis. Status: Acute (3) Thrombocytopenia: Will repeat LDH. Haptoglobin. Will ask hematology for additional peripheral smear review. Responded to PLT transfusion. Prophylactic Lovenox. Continue treatment of sepsis. Peripheral smear without schistocytes, however, with some noted dysmorphic metamyelocytes and myelocytes. Suspect likely secondary to infection. Possibly folic acid deficiency. As recommended by pathology flow cytometry is ordered to exclude myeloid disorder. HIT antibody negative. Suspected underlying liver fibrosis or possibly cirrhosis. No splenomegaly. Discussed with her mother. Status: Acute (4) Acute respiratory distress syndrome (ARDS) due to 2019 novel coronavirus: As above. Status: Acute (5) Anemia: Responded to RBC transfusion. Repeat tests for possible hemolysis. Repeat peripheral smear. D/w pulmonology additional DD. Does not appear typical for [facility]. Will request Jahaira-2R. Checking vitamin K level. Copper level. Normal B12. Folic acid deficiency. Folic acid added to TPN. Would benefit from folic acid replacement once able to administer enteric feeds. Status: Acute (6) PAT (acute kidney injury): Improved. Status: Acute (7) Hepatic encephalopathy: Ammonia is better. Suspected urea cycle disorder related to bariatric surgery. Lactulose enemas as tolerating. Given quite severe swings in oxygenation previously, with reported desaturation very rapidly when at times she would pull off BiPAP, despite almost immediate replacement anoxic brain injury is possible. Difficult to tell at this time due to still ongoing acute processes. She is not able to be assessed by MRI. This may need to be considered if there is no improvement in mental status despite improvement in other areas. Status: Acute (8) Protein-calorie malnutrition: TPN Status: Acute Qualifiers: Protein-calorie malnutrition severity: unspecified severity Qualified Code(s): E46 - Unspecified protein-calorie malnutrition (9) Hypernatremia: Better. Status: Acute (10) Metabolic acidosis: Status: Acute (11) Hypoglycemia: Monitor while holding tpn. Status: Acute (12) DIC (disseminated intravascular coagulation): Appears stabilized. Status: Acute (13) Opioid dependence: Status: Acute Qualifiers: Substance use status: uncomplicated Qualified Code(s): F11.20 - Opioid dependence, uncomplicated (14) Gastroparesis: Poor po intake resulting in malnutrition, NPO for now, high risk for aspiration Hx partial gastric resection. Status: Acute (15) Hypokalemia: Additional replacement. Status: Acute Additional A&P Information Recent echo EF 60%, no RWMA, gr 1 diastolic dysfunction from 04/2019 Hypocalcemia: Resolved Transmainitis, LFTs elevated but improved over early Nov History of partial gastrectomy: Would benefit from vitamin D supplementation. Check vitamin A, E, K, copper. Attestations Medical Necessity Statement*: Continue management of respiratory failure with severe COVID-19, sepsis, encephalopathy. 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84 Hypokalemia E87.6
--- NOTE | 2020-03-10 15:04 | USCV_ITS ---
SchaeferTherese Age: 44 Gender: F : 1975 Exam Date: 03/10/2020 15:05 Ordering Phys: Jr Celeste MD Technologist: Kristi Izquierdo Exam Location: [facility] [place]_ Indication: ? PE HISTORY: Edema. SOB PROCEDURES: The venous duplex Doppler examination of both lower extremities was performed in the standard fashion. The following venous structures were evaluated: common femoral vein, profunda vein, proximal portion of the greater saphenous vein, superficial femoral vein, and the popliteal vein. In addition, the posterior tibial and peroneal trunk were evaluated. Bilaterally, the common femoral, superficial femoral, profunda femoral, popliteal, posterior tibial, greater saphenous veins, and the peroneal trunk were identified and interrogated in the standard fashion. These veins were found to be easily compressible with spontaneous blood flow. No evidence of insufficiency or thrombus noted. FINDINGS: Normal 2-D Doppler and augmentation and compressibility throughout the lower extremity venous structures. Additional imaging through the proximal calf veins also reveals no thrombus. Limited evaluation of the greater saphenous vein is patent with no thrombus.. The veins were found to be easily compressible with spontaneous blood flow. Non pulsatile flow pattern. CONCLUSIONS No evidence of DVT in the above-mentioned identifiable veins. Dr Rani Monique MD [facility] (Electronically Signed) Final Date: 11 March 2020 13:27 S
--- NOTE | 2020-03-10 15:45 | PC.NURSE ---
Pt struggling to breath, O2 sats 72-94% BiPap increased to 100% FIo2, 16/10. BiPap whistling heard all the way down the pierre. Pt does try to pull of mask occasionally, Sitter helps redirect her. Dr Celeste at bedside. Lipds stopped, TPN weaned off. Lasix admin. Blood cultures and other labs collected. Hydromorphone admin.
[2020-03-10 16:33] LABS: Glucose Point of Care 147 mg/dL (70-110)
--- NOTE | 2020-03-10 16:58 | PC.OT ---
OT tx attempted. Pt is on bipap and nursing requests OT to hold tx at this time.Will attempt tx again tomorrow.
[2020-03-10 17:49] LABS: Lactate Dehydrogenase 755 U/L (135-214)
--- NOTE | 2020-03-10 18:24 | PC.NURSE ---
Addendum entered by Luana Rubin RN 03/10/20 18:49: Noted skin tear on left cheek from BiPap mask this afternoon. Original Note: Shift summary: Pt alert and oriented to self, situation and place. Pt has struggled with breathing throughout the afternoon. Lungs sounds were crackles, Lasix admin for fluid overload. TPN and lipid discontinued. Insulin sliding scale discontinued. Heart rate tachy all day. She is now on BiPap at 75%. Lung sounds are now very diminished. She had 1850ml urine output. One on one sitter remains at bedside.
--- NOTE | 2020-03-10 18:49 | PC.NURSE ---
Report given to CLAUDIA Gaytan
[2020-03-10] MEDS: dexamethasone 4 mg/mL INJ 6 MG IVP (20:04)
[2020-03-10 20:05] LABS: Glucose Point of Care 96 mg/dL (70-110)
--- NOTE | 2020-03-10 22:00 | PC.NURSE ---
During shift change report it was reported that the TPN was stopped. Verified with charge nurse and she stated that she received the same report and was instructed to keep the TPN off at this time.
[2020-03-11] VITALS (63 sets, daily range): BP systolic 122–161; BP diastolic 82–118; PULSE 106–131; RESP 17–50; TEMP 37.2–38.2; O2SAT 74–97; BMI 31.0
[2020-03-11 02:56] LABS: Basophils % 0.2 %; Hematocrit 26.4 % (37.0-47.0); Hemoglobin 8.8 g/dL (11.5-15.3); Lymphocytes # 0.4 10^3/uL (0.8-4.8); Lymphocytes % 2.9 %; Mean Corpuscular HGB Conc 33.3 g/dL (30.0-36.0); Mean Platelet Volume 12.9 fL (7.4-10.4); Monocytes # 0.2 10^3/uL (0.2-0.9); Monocytes % 1.3 %; Neutrophils # 12.42 10^3/uL (1.8-7.7); Neutrophils % 92.7 %; Nucleated Red Blood Cells # 0.1 /100WBC; Platelet Count 48 10^3/cmm (130-400); Red Blood Count 2.84 10^6/uL (4.1-5.3); Red Cell Distribution Width 18.6 % (12.1-15.1); White Blood Count 13.4 10^3/uL (4.0-10.0)
[2020-03-11 03:16] LABS: Ammonia 19 umol/L (11-51)
[2020-03-11 03:18] LABS: Alanine Aminotransferase 26 U/L (0-33); Albumin Level 2.3 g/dL (3.5-5.2); Alkaline Phosphatase 132 IU/L (35-105); Anion Gap 14.4 (5-19); Aspartate Amino Transferase 31 U/L (0-32); Blood Urea Nitrogen 25 mg/dL (6-20); Calcium 8.2 mg/dL (8.5-10.5); Carbon Dioxide 32 mmol/L (22-29); Chloride 100 mmol/L (98-107); Globulin 2.4 g/dL (1.3-4.6); Glomerular Filtration Rate 107.6 mL/min (90-130); Glucose 120 mg/dL (65-115); Osmolality Calculated 302 mOsm/kg (285-295); Potassium 3.4 mmol/L (3.5-5.1); Sodium 143 mmol/L (136-145); Total Bilirubin 1.9 mg/dL (0.15-1.2); Total Protein 4.7 g/dL (6.6-8.7)
[2020-03-11 03:19] LABS: Total Bilirubin 1.9 mg/dL (0.15-1.2)
[2020-03-11] MEDS: ipratropium-albuterol 3 mL Neb INHALATION ×5 (03:34→19:40)
[2020-03-11 04:32] LABS: Glucose Point of Care 119 mg/dL (70-110)
[2020-03-11] MEDS: FUROsemide 10 mg/mL SDV 10mL 60 MG IVP ×2 (04:46→16:19)
--- NOTE | 2020-03-11 08:05 | PM.PN ---
Subjective Subjective: Interval history: Patient had significant oxygen desaturation yesterday requiring 100% FiO2 and constant BiPAP since yesterday morning. She was treated with Dilaudid and Lasix and we were able to bring oxygen down to 70%. She has rectal tube and with liquid stool. Her C. difficile test checked previously was negative. She was started on caspofungin for spiking fevers. It is difficult for her to talk with BiPAP on but she appears to be answering questions and following commands appropriately. Her Precedex is being titrated down. She appears very ill. She denies chest pain or abdominal pain. Patient was spiking fevers while being on antibiotics and caspofungin was started. Medications: Reviewed: Yes Vitals/I&O/Wt Last Vital Signs Temp 99.6 F 03/11/20 00:00 Pulse 110 H 03/11/20 07:59 Resp 40 H 03/11/20 07:54 BP 138/102 03/11/20 07:00 Pulse Ox 97 03/11/20 07:58 03/10/20 03/11/20 03/11/20 22:59 06:59 14:59 Intake Total 359.667 / 1543.267 74.462 / 1617.729 Output Total 2950 / 3850 1057 / 4907 Balance -2590.333 / -2306.733 -982.538 / -3289.271 Weight last 48 hrs Weight 82 kg Physical Exam Const: COMMON NORMALS: no acute distress Resp: OTHER: On BiPAP, diffuse Rales throughout Cardio: COMMON NORMALS: regular rate, regular rhythm and S2 normal heart sound present RATE: regular rate RHYTHM: regular rhythm HEART SOUNDS: S2 normal heart sound present OTHER: 2+ lower extremity edema GI: COMMON NORMALS: Normal to inspection, nondistended, normoactive bowel sounds present, Soft to palpation and non-tender PALPATION: Yes Soft to palpation Neuro: COMMON NORMALS: no focal motor deficits Urinary Catheter Management^: Alcantara: Cath Placed During This Visit: yes Reason for Continuing Indwelling Catheter: Accurate Measurement of Urinary Output in Critically Ill Patients Urinary Catheter Date of Insertion: 02/27/20 Urinary Catheter Time of Insertion: 01:30 Data : 03/11/20 02:20 03/11/20 02:20 Micro: Microbiology 03/10/20 15:30 Blood Culture - Preliminary Blood SPECIMEN COLLECTED 03/10/20 14:45 Blood Culture - Preliminary Blood SPECIMEN COLLECTED A&P Assessment and plan (1) Acute hypoxemic respiratory failure due to COVID-19: Worsened hypoxia today, requiring 100% FiO2 support on BiPAP, IPAP 10. Interim ventilator dyssynchrony. Given 1 dose of Ativan. Persistent edema, bilateral crackles. She is receiving 60 mg IV Lasix. TPN held. Discussed with her mother. Goals of care CODE STATUS updated. Discussed with pulmonology. If does not improve may need to proceed to intubation which in itself may be rather risky, but may be her only option should she not improve or decline further. Decadron 6mg every 24 hours. Empiric antibiotic. Diflucan. Will check w pharmacy if we have caspofungin. Repeat blood culture, fungal culture. Urine culture. Once able to, remove CVC, send tip for culture. At the moment very poor peripheral access. Status: Acute (2) Septic shock: As above. Severe COVID-19. Empiric antibiotics for possible superimposed bacterial pulmonary infection. Candidal UTI. Additional assessment by CT abdomen pelvis due to abdominal pain shows improving colitis. Status: Acute (3) Thrombocytopenia: Will repeat LDH. Haptoglobin. Will ask hematology for additional peripheral smear review. Responded to PLT transfusion. Prophylactic Lovenox. Continue treatment of sepsis. Peripheral smear without schistocytes, however, with some noted dysmorphic metamyelocytes and myelocytes. Suspect likely secondary to infection. Possibly folic acid deficiency. As recommended by pathology flow cytometry is ordered to exclude myeloid disorder. HIT antibody negative. Suspected underlying liver fibrosis or possibly cirrhosis. No splenomegaly. Discussed with her mother. Status: Acute (4) Acute respiratory distress syndrome (ARDS) due to 2019 novel coronavirus: As above. Status: Acute (5) Anemia: Responded to RBC transfusion. Repeat tests for possible hemolysis. Repeat peripheral smear. D/w pulmonology additional DD. Does not appear typical for [facility]. Will request Jahiara-2R. Checking vitamin K level. Copper level. Normal B12. Folic acid deficiency. Folic acid added to TPN. Would benefit from folic acid replacement once able to administer enteric feeds. Status: Acute (6) PAT (acute kidney injury): Improved. Status: Acute (7) Hepatic encephalopathy: Ammonia is better. Suspected urea cycle disorder related to bariatric surgery. Lactulose enemas as tolerating. Given quite severe swings in oxygenation previously, with reported desaturation very rapidly when at times she would pull off BiPAP, despite almost immediate replacement anoxic brain injury is possible. Difficult to tell at this time due to still ongoing acute processes. She is not able to be assessed by MRI. This may need to be considered if there is no improvement in mental status despite improvement in other areas. Status: Acute (8) Protein-calorie malnutrition: TPN Status: Acute Qualifiers: Protein-calorie malnutrition severity: unspecified severity Qualified Code(s): E46 - Unspecified protein-calorie malnutrition (9) Hypernatremia: Better. Status: Acute (10) Metabolic acidosis: Status: Acute (11) Hypoglycemia: Monitor while holding tpn. Status: Acute (12) DIC (disseminated intravascular coagulation): Appears stabilized. Status: Acute (13) Opioid dependence: Status: Acute Qualifiers: Substance use status: uncomplicated Qualified Code(s): F11.20 - Opioid dependence, uncomplicated (14) Gastroparesis: Poor po intake resulting in malnutrition, NPO for now, high risk for aspiration Hx partial gastric resection. Status: Acute (15) Hypokalemia: Additional replacement. Status: Acute Additional A&P Information Recent echo EF 60%, no RWMA, gr 1 diastolic dysfunction from 04/2019 Hypocalcemia: Resolved Transmainitis, LFTs elevated but improved over early Feb. This could be related to cholestasis. Acute cholecystitis felt unlikely but if enzymes start worsening will request gallbladder ultrasound History of partial gastrectomy: Would benefit from vitamin D supplementation. Check vitamin A, E, K, copper. PLAN: Awaiting IV midline placement. We will discontinue antibiotics as patient had it for a week. Antibiotics as well as Protonix may possibly contribute to thrombocytopenia therefore it will be discontinued and we will monitor. We will continue Lasix and add albumin to decrease third spacing. Hopefully we can switch patient to high flow nasal cannula and allow patient to eat. Continue caspofungin for now. Discontinue prednisone and Lovenox. Patient is at high risk for GI bleed. Wean off Precedex and oxygen as saturation permits. Will add Dilaudid to be used as needed especially in view of patient's opiate dependence. Discussed with RN. Physical and occupational therapy Monitor CBC and CMP Attestations Medical Necessity Statement*: Patient is critically ill requiring close ICU monitoring and treatment. 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
[2020-03-11 08:28] LABS: Glucose Point of Care 111 mg/dL (70-110)
[2020-03-11 09:41] LABS: LAB Peripheral Smear Sent for Review
[2020-03-11] MEDS: lidocaine 1% 5 ML in potassium chloride premix 100 ML 25 ML IV ×2 (10:50→14:18)
[2020-03-11] MEDS: budesonide 0.5 mg/2 mL Neb INHALATION ×2 (11:18→19:40)
[2020-03-11 12:09] LABS: Glucose Point of Care 85 mg/dL (70-110)
[2020-03-11] MEDS: HYDROmorphone 1 mg/mL INJ 1 mL IVP ×2 (13:39→20:48)
[2020-03-11 16:39] LABS: Glucose Point of Care 84 mg/dL (70-110)
[2020-03-11 17:42] LABS: Copper Level 40 mcg/dL (70-175)
--- NOTE | 2020-03-11 17:54 | PC.NURSE ---
Lab, Melanie, notified, for second time, of cath tip ready for car pick up driver by lab. First time being 1430 when tip cut.
--- NOTE | 2020-03-11 18:05 | PC.NURSE ---
Lab picked up cath tip culture.
--- NOTE | 2020-03-11 18:25 | PC.NURSE ---
Shift summary: Pt resting in bed today. She has not engaged in conversation like she attempted yesterday. She has watched TV. She is lethargic and weak. Aggressive oral care provided to help keep her mouth clean and moist for her comfort. She has stayed on BiPap throughout this shift, FIO2 decreased to 70 % and settings 10/14. Central line removed from right neck, cath tip sent off for culture. Midline placed in right upper arm.. Pt tolerating well. Albumin given. Lasix given . Urine output of 1275 ml. Rectal tube still in place. Sitter at bedside. Pt has not pulled at the BiPap mask like she did yesterday.
--- NOTE | 2020-03-11 19:00 | PC.NURSE ---
Report given to CLAUDIA Sainz.
[2020-03-11 20:17] LABS: Glucose Point of Care 74 mg/dL (70-110)
[2020-03-11] MEDS: sodium chloride 0.9% 500 ML 999 ML IV (23:41)
[2020-03-11 23:58] LABS: Glucose Point of Care 69 mg/dL (70-110)
[2020-03-12] VITALS (38 sets, daily range): BP systolic 118–169; BP diastolic 85–116; PULSE 101–135; RESP 13–41; TEMP 36.9–38.2; O2SAT 67–98
[2020-03-12] MEDS: HYDROmorphone 1 mg/mL INJ 1 mL IVP ×4 (01:36→14:55)
[2020-03-12] MEDS: FUROsemide 10 mg/mL SDV 10mL 60 MG IVP (03:39)
--- NOTE | 2020-03-12 04:11 | PC.RESP ---
Pt is refusing to wear BIPAP at this time. PT's O2 sat dropped to 11% Dr. aGrcía has been notified. I was able to put pt back on BIPAP and have her wear it until Dr. García can come see her. Pt is aware of what is going on and she states she would like to talk to Dr. García. Pt is 92% on 14/11 100% bipap right now. Will continue to monitor.
[2020-03-12] MEDS: ipratropium-albuterol 3 mL Neb INHALATION ×6 (04:14→23:33)
[2020-03-12 04:18] LABS: Basophils % 0.2 %; Eosinophils # 0.1 10^3/uL (0.0-0.8); Eosinophils % 0.7 %; Hematocrit 26.8 % (37.0-47.0); Hemoglobin 8.3 g/dL (11.5-15.3); Lymphocytes % 5.6 %; Mean Corpuscular Hemoglobin 30.7 pg (28.0-34.0); Mean Corpuscular Volume 99.3 fL (81-99); Mean Platelet Volume 12.9 fL (7.4-10.4); Monocytes # 0.4 10^3/uL (0.2-0.9); Monocytes % 2.3 %; Neutrophils # 15.43 10^3/uL (1.8-7.7); Neutrophils % 88.6 %; Nucleated Red Blood Cells # 0.2 /100WBC; Nucleated Red Blood Cells % 0.9 %; Platelet Count 76 10^3/cmm (130-400); Red Cell Distribution Width 19.5 % (12.1-15.1); White Blood Count 17.4 10^3/uL (4.0-10.0)
[2020-03-12] MEDS: LORazepam 2 mg/mL INJ 1 mL 0.25 MG IVP (04:20)
[2020-03-12 04:40] LABS: Alanine Aminotransferase 27 U/L (0-33); Alkaline Phosphatase 116 IU/L (35-105); Aspartate Amino Transferase 40 U/L (0-32); Blood Urea Nitrogen 27 mg/dL (6-20); Calcium 8.8 mg/dL (8.5-10.5); Carbon Dioxide 33 mmol/L (22-29); Chloride 104 mmol/L (98-107); Globulin 2.1 g/dL (1.3-4.6); Glomerular Filtration Rate 90.1 mL/min (90-130); Glucose 63 mg/dL (65-115); Magnesium 1.9 mg/dL (1.7-2.3); Osmolality Calculated 309 mOsm/kg (285-295); Sodium 148 mmol/L (136-145); Total Bilirubin 1.9 mg/dL (0.15-1.2); Total Protein 5.1 g/dL (6.6-8.7)
[2020-03-12 04:40] LABS: Glucose Point of Care 61 mg/dL (70-110)
[2020-03-12 04:56] LABS: Ammonia 21 umol/L (11-51)
[2020-03-12] MEDS: dextrose 50% syringe 50 mL IVP ×2 (05:23→11:36)
--- NOTE | 2020-03-12 06:23 | US_ITS ---
WS: [id number] Complete ABDOMINAL ULTRASOUND HISTORY: Elevated liver enzymes, concern for cholecystitis COMPARISON: CT 03/08/2020 Quality of this examination is suboptimal. Liver: 15.7 cm in length. Liver is poorly visualized. Mildly coarsened echotexture and the surface is irregular suggesting cirrhosis. No bile duct dilatation appreciated. Gallbladder: Not identified. History of cholecystectomy. Pancreas: Not visualized. CBD: 0.7 cm. Right kidney: 10.3 cm x 4.6 cm x 3.7 cm. No mass, cortical thickening or hydronephrosis. Left kidney: 10.3 cm x 4.9 cm x 4.4 cm. No mass, cortical thickening or hydronephrosis. Spleen: Top normal size at 13.6 cm in length. Aorta and IVC are not well visualized. No ascites. US/US abdomen complete* [id number] IMPRESSION: 1. Limited evaluation of the abdominal structures due to body habitus. 2. Changes of moderate cirrhosis. 3. Spleen is top normal size. 4. Prior cholecystectomy. 5. No bile duct dilatation.
[2020-03-12] MEDS: LORazepam 2 mg/mL INJ 1 mL 1 MG IVP ×2 (06:25→21:31)
[2020-03-12 06:43] LABS: Glucose Point of Care 87 mg/dL (70-110)
[2020-03-12] MEDS: metoprolol tartrate 1 mg/1 mL SDV 5 mL 5 MG IV ×3 (07:15→19:02)
--- NOTE | 2020-03-12 07:40 | P.PN_ITS ---
Subjective Subjective: Interval history: Patient was doing well throughout night and most of the night spent watching TV. She was alert and oriented and answering questions appropriately. This morning she had significant episode of desaturation after her mask was removed for oral care. She did not want to put the mask back. She was given Ativan and mask was placed back with improvement of saturations to high 80s/low 90s. During my evaluation this morning patient is somnolent and drifts to sleep but otherwise able to answer short questions and follows simple commands. She denies any pain. She noted to have epigastric area abdominal pain on exam. Her WBC count increased to 17.4. Hemoglobin down to 8.3 with platelet count slightly improved to 76. She had good urinary output overnight. Her sodium increased to 148 and her sugar was 63 this morning and she received 1 amp of D50. Patient's mother and son were allowed to visit and I had discussion with family at bedside. Patient remains critically ill. Her liver enzymes remain elevated but alk phos is trending down. Gallbladder ultrasound was requested. Right IJ central line was removed yesterday and tip was sent for culture. Left- sided midline was placed. Patient was on meropenem and vancomycin for approximately 2 weeks and they were discontinued yesterday. Patient was also on many days of dexamethasone. Temperature was 98.6 during my evaluation. Medications: Reviewed: Yes Vitals/I&O/Wt Last Vital Signs Temp 100.8 F H 03/12/20 00:00 Pulse 126 H 03/12/20 04:18 Resp 32 H 03/12/20 05:44 BP 168/111 03/12/20 02:00 Pulse Ox 93 03/12/20 05:44 03/11/20 03/12/20 03/12/20 22:59 06:59 14:59 Intake Total 455 / 671.205 200 / 871.205 Output Total 1725 / 1975 750 / 2725 Balance -1270 / -1303.795 -550 / -1853.795 Weight last 48 hrs Weight 82 kg Physical Exam Const: COMMON NORMALS: no acute distress Resp: OTHER: On BiPAP, diffuse Rales throughout but appears slightly improved. Cardio: COMMON NORMALS: regular rate, regular rhythm and S2 normal heart sound present RATE: regular rate RHYTHM: regular rhythm HEART SOUNDS: S2 normal heart sound present OTHER: 1+ lower extremity edema GI: COMMON NORMALS: Normal to inspection, nondistended, normoactive bowel sounds present and Soft to palpation PALPATION: Yes Soft to palpation OTHER: Epigastric area tenderness. Neuro: COMMON NORMALS: no focal motor deficits Urinary Catheter Management^: [place]: Cath Placed During This Visit: yes Reason for Continuing Indwelling Catheter: Accurate Measurement of Urinary Output in Critically Ill Patients Urinary Catheter Date of Insertion: 02/27/20 Urinary Catheter Time of Insertion: 01:30 Data : 03/12/20 04:00 03/12/20 04:00 Micro: Microbiology 03/10/20 15:30 Blood Culture - Preliminary Blood NEGATIVE TO DATE 03/10/20 14:45 Blood Culture - Preliminary Blood NEGATIVE TO DATE A&P Assessment and plan (1) Acute hypoxemic respiratory failure due to COVID-19: Worsened hypoxia today, requiring 100% FiO2 support on BiPAP, IPAP 10. Interim ventilator dyssynchrony. Given 1 dose of Ativan. Persistent edema, bilateral crackles. She is receiving 60 mg IV Lasix. TPN hel d. Discussed with her mother. Goals of care CODE STATUS updated. Discussed with pulmonology. If does not improve may need to proceed to intubation which in itself may be rather risky, but may be her only option should she not improve or decline further. Decadron 6mg every 24 hours. Empiric antibiotic. Diflucan. Will check w pharmacy if we have caspofungin. Repeat blood culture, fungal culture. Urine culture. Once able to, remove CVC, send tip for culture. At the moment very poor peripheral access. Status: Acute (2) Septic shock: As above. Severe COVID-19. Empiric antibiotics for possible superimposed bacterial pulmonary infection. Candidal UTI. Additional assessment by CT abdomen pelvis due to abdominal pain shows improving colitis. Status: Acute (3) Thrombocytopenia: Will repeat LDH. Haptoglobin. Will ask hematology for additional peripheral smear review. Responded to PLT transfusion. Prophylactic Lovenox. Continue treatment of sepsis. Peripheral smear without schistocytes, however, with some noted dysmorphic metamyelocytes and myelocytes. Suspect likely secondary to infection. Possibly folic acid deficiency. As recommended by pathology flow cytometry is ordered to exclude myeloid disorder. HIT antibody negative. Suspected underlying liver fibrosis or possibly cirrhosis. No splenomegaly. Discussed with her mother. Status: Acute (4) Acute respiratory distress syndrome (ARDS) due to 2019 novel coronavirus: As above. Status: Acute (5) Anemia: Responded to RBC transfusion. Repeat tests for possible hemolysis. Repeat peripheral smear. D/w pulmonology additional DD. Does not appear typical for [facility]. Will request Jahaira-2R. Checking vitamin K level. Copper level. Normal B12. Folic acid deficiency. Folic acid added to TPN. Would benefit from folic acid replacement once able to administer enteric feeds. Status: Acute (6) PAT (acute kidney injury): Improved. Status: Acute (7) Hepatic encephalopathy: Ammonia is better. Suspected urea cycle disorder related to bariatric surgery. Lactulose enemas as tolerating. Given quite severe swings in oxygenation previously, with reported desaturation very rapidly when at times she would pull off BiPAP, despite almost immediate replacement anoxic brain injury is possible. Difficult to tell at this time due to still ongoing acute processes. She is not able to be assessed by MRI. This may need to be considered if there is no improvement in mental status despite improvement in other areas. Status: Acute (8) Protein-calorie malnutrition: TPN Status: Acute Qualifiers: Protein-calorie malnutrition severity: unspecified severity Qualified Code(s): E46 - Unspecified protein-calorie malnutrition (9) Hypernatremia: Better. Status: Acute (10) Metabolic acidosis: Status: Acute (11) Hypoglycemia: Monitor while holding tpn. Status: Acute (12) DIC (disseminated intravascular coagulation): Appears stabilized. Status: Acute (13) Opioid dependence: Status: Acute Qualifiers: Substance use status: uncomplicated Qualified Code(s): F11.20 - Opioid dependence, uncomplicated (14) Gastroparesis: Poor po intake resulting in malnutrition, NPO for now, high risk for aspi ration Hx partial gastric resection. Status: Acute (15) Hypokalemia: Additional replacement. Status: Acute Additional A&P Information Recent echo EF 60%, no RWMA, gr 1 diastolic dysfunction from 04/2019 Hypocalcemia: Resolved Transmainitis, LFTs elevated but improved over early Feb. This could be related to cholestasis. Patient noted to have epigastric area abdominal pain today and therefore gallbladder ultrasound requested. History of partial gastrectomy: Would benefit from vitamin D supplementation. Check vitamin A, E, K, copper. PLAN: Continue current monitoring and treatment but hold Lasix to allow gradual shift from third space. Continue monitoring patient off antibiotics and steroids. Will discuss with RT and hopefully we can transition patient to high flow nasal cannula so she can start eating and drinking. Attestations Medical Necessity Statement*: Patient is critically ill requiring close ICU monitoring and treatment. 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 [employer] Fwd Diagnoses Acute hypoxemic respiratory failure due to COVID-19 U07.1; J96.01 Septic shock A41.9; R65.21 Thrombocytopenia D69.6 Acute respiratory distress syndrome (ARDS) due to 2019 novel coronavirus U07.1; J80 Anemia D64.9 PAT (acute kidney injury) N17.9 Hepatic encephalopathy K72.90 Protein-calorie malnutrition E46 Protein-calorie malnutrition severity: unspecified severity Hypernatremia E87.0 Metabolic acidosis E87.2 Hypoglycemia E16.2 DIC (disseminated intravascular coagulation) D65 Opioid dependence F11.20 Substance use status: uncomplicated Gastroparesis K31.84 Hypokalemia E87.6
[2020-03-12 07:51] LABS: Glucose Point of Care 71 mg/dL (70-110)
[2020-03-12] MEDS: budesonide 0.5 mg/2 mL Neb INHALATION ×2 (08:23→20:38)
--- NOTE | 2020-03-12 08:50 | PC.NURSE ---
Shift Summary: Patient has been ST throughout overnight shift. Fluctuating between 110's-130's. Some HTN noted with SBP reaching 160's. MD promotions producer gave orders for Bolus of 500mL NS to be given to patient, but only 250mL was given after RN consulted with MD to clarify total order. Patient has verbalized numerous c/o pain in which IVP Hydromorphone was given as ordered. Patient overall has been A&O3, and able to verbalize needs/answer RN's questions as asked. Oral care has been done on a Q2HR schedule, with RT and RN at beside each time. When Bipap mask has been removed, patient SPO2 instantly drops to 60-70% within a matter of 30 seconds max. Around 0300 RN and RT returned to room to complete oral care as done prior in shift. After removing pt mask and allowing for sips of water, patient then verbalized I can't do this anymore , and do not put that mask back on me . Pt continued to push mask away from face. RN explained and reeducated patient on risks of mask not being on. And ensuring patient understood poor prognosis/outcomes if patient did not allow for mask to be placed. RN and RT were able to place Bipap mask and with physical stimulation in efforts to have patient take own breaths. Patient was able to slowly return back to 80%. MD promotions producer was phoned by RT and RN during incident. RN remained at bedside and attempted to contact pt mother to update in the patients overall status. Ativan IVP was given in efforts to decrease anxiety. MD promotions producer came to pt bedside, and attempted to have pt wishes conversation with patient. New orders for a one time dose of Ativan given for a PRN basis. RN retrieved ACCU check that resulted in 61 BG. MD promotions producer gave new orders for a full Amp of D50 to be given. RN phoned pt mother for a second attempt, in efforts to update family. After pt v/s returned back to baseline, patient then had HR increase to 140's-150's with SPO2 status around 80%. Dayshift then at bedside with report given by RN. New orders for Metoprolol IVP to be given. Family now at bedside with update given. Sitter remains with patient for close monitoring of pt overall status.
[2020-03-12 11:32] LABS: Glucose Point of Care 58 mg/dL (70-110)
[2020-03-12 12:13] LABS: Glucose Point of Care 120 mg/dL (70-110)
[2020-03-12 15:13] LABS: Glucose Point of Care 58 mg/dL (70-110)
[2020-03-12] MEDS: dextrose 50% syringe 50 mL 25 ML IVP (15:13)
--- NOTE | 2020-03-12 15:29 | PC.OT ---
HOLD OT PER NURSING REQUEST SECONDARY TO UNSTABLE AT THIS TIME (HR/BP/O2 REQUIREMENT AND BLOOD SUGAR)
[2020-03-12 15:39] LABS: Glucose Point of Care 142 mg/dL (70-110)
[2020-03-12 16:58] LABS: Alpha-Tocopherol 4.8 mg/L
[2020-03-12] MEDS: HYDROmorphone 1 mg/mL INJ 1 mL 0.2 MG IVP ×3 (19:02→22:55)
[2020-03-12] MEDS: acetaminophen 325 mg Tablet 650 MG PO (20:34)
--- NOTE | 2020-03-12 22:59 | PC.NURSE ---
Spoke with patient at bedside with provider present patient was educated about her current condition and increased oxygen demand and changes in machine settings. Presented patient with option of intubation and explained the need for this. Patient thought about the information and stated that if she is not better by tomorrow or if she gets worse tonight then she will agree to intubation. Patient has been having oxygen saturation levels in the high 70's to low 80's maintaining mostley around 83% on full face mask BiPap therapy at 22/12 at 100% oxygen. Patient is tachycardic in the 120's and BP is in the 140-150's over uper 90's to 110 at its highest so far. Patient has periods of panic with respirations up to the 70's at times. Holding her hand and talking to her helps her to calm down but it takes a long time for her to recover. Skin noted to be warm and dry with edema noted to upper and lower extremities. Weeping noted to Right forearm. Patient contines to be alert and oriented X4 with reports of pain. Will continue to monitor and assist as needed following CPOC.
[2020-03-12] MEDS: hyDRALAzine 20 mg/mL INJ 1 mL 5 MG IVP (23:58)
[2020-03-13] VITALS (37 sets, daily range): BP systolic 99–157; BP diastolic 61–112; PULSE 97–138; RESP 14–42; TEMP 36.6–37.9; O2SAT 71–96; BMI 28.0
[2020-03-13] MEDS: HYDROmorphone 1 mg/mL INJ 1 mL IVP ×2 (01:30→05:37)
--- NOTE | 2020-03-13 02:39 | PC.NURSE ---
Patient has continued to deteriorate maintaining SpO2 in the mid 70's. Provider notified with no response at this time. Patient does not appear in distress at this time but pulse rate is up to 130 with BP 158/115 Respirators are in the 20's Awaiting orders from provider. Patient continues to voice pain of 10/10 and rubs her chest have given patient pain medication dilaudid 1 mg with no relief. provider notified but does not want sedating medications. Will continue with CPOC until new orders come in.
[2020-03-13] MEDS: metoprolol tartrate 1 mg/1 mL SDV 5 mL 5 MG IV (02:51)
--- NOTE | 2020-03-13 03:44 | XR_ITS ---
WS: [id number] XR chest 1V portable [id number] REASON FOR EXAM: intubation FINDINGS: The symmetric central airspace infiltrates have become more extensive and more dense compared to the previous examination of 03/09/2020. There are well-defined bronchograms. Endotracheal tube is in place approximately 2 cm above the shannon. Nasogastric tube is in the distal esophagus proximal to the gastroesophageal junction. Right IJ central venous line has been removed. Tube placements as above. XR/XR chest 1V portable [id number] IMPRESSION: Extensive central airspace infiltrates as above. This pattern is more often see n with some form of pulmonary edema or hemorrhage. It is noted that previous CT scan demonstrates extensive fluid in the soft tissues of the abdominal wall, a nasarca.
--- NOTE | 2020-03-13 04:00 | PC.NURSE ---
0255 Provider notified of patient continued high blood pressure and pulse and unrelieved pain. Also noted that patient SpO2 was continuing to drop and patient had agreed to intubation. 0310 patient saturation dropped to 67 Provider called and preparations to intubate patient started. 0355 patient intubated with 8 fr ET tube measuring at 22 at the lip. Normal Saline was ran wide open for procedure along with IVP of 25 mg of etomadate, 125mg of Succs, 2 mg of ativan, 10mg of Vecuronium, and 100 of Fentanyl. Procedure tolerated well. OG tube was attempted but after multiple attempts and xray confirmation tube was discontinued due to inability to advance. xray showed proper ET tube placement tube secured with appropriate securement straps. Patient placed in soft non violent restraints and fentanyl drip was started at 25mcg per hour. Patient vitals looking better still continuing to work with respiratory therapy for optimal vent settings. Will continue with current plan of care.
--- NOTE | 2020-03-13 04:09 | W.ED.SOB ---
HPI - SOB/Dyspnea General: Chief Complaint: Shortness of Breath/Dyspnea Stated Complaint: RESPIRATORY DISTRESS Time Seen by Provider: 02/26/20 17:11 Source: patient and EMS Mode of arrival: EMS Limitations: altered mental status History of Present Illness: Severity: severe Exacerbating factors: nothing Relieving factors: oxygen Treatment prior to arrival: oxygen [facility] ED PFSH: Medical History Acute pancreatitis Acute pancreatitis Anastomotic ulcer S/P gastric bypass Chest pain Present, constant, pain with palpation consistent with musculoskeletal pain. Nuclear stress test negative. Echocardiogram preserved EF with no wall motion abnormalities Chronic post-traumatic stress disorder of child Elevated serum hCG Gastroparesis Generalized anxiety disorder Hypertension Major depressive disorder, recurrent severe without psychotic features Pneumonia due to 2019 novel coronavirus Recurrent pancreatitis Sepsis Vomiting blood Surgical History H/O esophagogastroduodenoscopy (~06/2019) H/O: hysterectomy History of partial gastrectomy Hx of cholecystectomy S/P appendectomy Family History Mother CAD (coronary artery disease) Other Hypertension Denies family history of Anesthesia complication Bleeding disorder Social History Smoking and tobacco status: former smoker Alcohol intake: never Adopted: No Caregiver/support person: Yes Lives independently: Yes Household members: family and children Housing: House Marital status: service: No Current occupational status: employed Current occupational exposures/hazards: No Pets and animals: No History of recent travel: No Sexually active: No Current gender identity: Female Teresa/Oriental Orthodox: Sabianist Special teresa needs: No Agree to transfusion: No Financial difficulty paying for basics: Decline to Answer Procedures Intubation Time out performed: Yes sedative: Etomidate Mg Given: 25 paralytic: Succinylcholine Mg Given: 125 Laryngoscope: fiber optic video scope ET Tube Size: 8 ET Tube Uncuffed: Yes Tube Secured Depth (cm): 20 Tube Secured Location: lips Tube Placement Confirmation: visualized tube passing through cords, equal breath sounds bilaterally, no breath sounds over epigastrium and confirmation by capnometry Patient Tolerated Procedure: well and no complications Intubation Complications: none Additional Comments: Chest x-ray revealed appropriate ET tube placement. Nursing and placed NG tube and I have have advised him to advance it approximately 4 to 5 inches. Course Vital Signs: Vital signs: Vital Signs Temperature 100.1 F H 03/12/20 15:00 Pulse Rate 122 H 03/12/20 23:35 Respiratory Rate 22 H 03/12/20 23:34 Blood Pressure 147/102 03/12/20 22:00 Pulse Oximetry 84 L 03/12/20 23:35 MDM - SOB/Dyspnea Lab Data: Labs: Lab Results 02/26/20 02/26/20 02/26/20 Range/Units 17:47 17:47 17:58 WBC (4.0-10.0) 10^3/ uL RBC (4.1-5.3) 10^6/u L Hgb (11.5-15.3) g/dL Hct (37.0-47.0) % MCV (81-99) fL MCH (28.0-34.0) pg MCHC (30.0-36.0) g/dL RDW (12.1-15.1) % Plt Count (130-400) 10^3/c mm MPV (7.4-10.4) fL Neut % (Auto) % Lymph % (Auto) % [place] % (Auto) % Eos % (Auto) % Baso % (Auto) % Neut # (Auto) (1.8-7.7) 10^3/u L Lymph # (Auto) (0.8-4.8) 10^3/u L [place] # (Auto) (0.2-0.9) 10^3/u L Eos # (Auto) (0.0-0.8) 10^3/u L Baso # (Auto) (0.0-0.1) 10^3/u L Nucleated RBC % (a uto) % Nucleated RBCs # /100WBC PT 18.00 H (12.1-14.9) SECO NDS INR 1.44 H (0.8-1.2) D-Dimer 2.33 H (0-0.59) ug/mIFE U Specimen Type Sample Site ABG pH (7.35-7.45) ABG pCO2 (35-45) mmHg ABG pO2 (80.0-100.0) mmH g ABG HCO3 (22-26) mmol/L ABG Base Excess (-2.0-2.0) mmol/ L Caleb Test Hematocrit (37-47) % Hgb O2 Saturation (95-100) % Carboxyhemoglobin (0.4-20.1) %THgb Methemoglobin (0.4-1.5) % Total Hemoglobin (12-16) g/dL O2 Delivery Device O2 Liters/Min % FiO2 % Lithographer Apprentice ID Sodium (136-145) mmol/L Potassium (3.5-5.1) mmol/L Chloride (98-107) mmol/L Carbon Dioxide (22-29) mmol/L Anion Gap (5-19) BUN (6-20) mg/dL Creatinine (0.5-0.9) mg/dL GFR Calculation (90-130) mL/min Glucose (65-115) mg/dL POC Glucose (70-110) mg/dL Calculated Osmolal ity (285-295) mOsm/k g Lactic Acid (0.5-2.2) mmol/L Lactic Acid (Sepsi s) (0.5-2.2) mmol/L Calcium (8.5-10.5) mg/dL Total Bilirubin (0.15-1.2) mg/dL AST (0-32) U/L ALT (0-33) U/L Alkaline Phosphata se (35-105) IU/L Total Protein (6.6-8.7) g/dL Albumin (3.5-5.2) g/dL Globulin (1.3-4.6) g/dL Lipase (13-60) U/L Influenza Type A A g Negative (Negative) Influenza Type B A g Negative (Negative) SARS-CoV-2 Ag (Rap id) Cancelled 02/26/20 02/26/20 02/26/20 Range/Units 17:58 17:58 18:08 WBC (4.0-10.0) 10^3/ uL RBC (4.1-5.3) 10^6/u L Hgb (11.5-15.3) g/dL Hct (37.0-47.0) % MCV (81-99) fL MCH (28.0-34.0) pg MCHC (30.0-36.0) g/dL RDW (12.1-15.1) % Plt Count (130-400) 10^3/c mm MPV (7.4-10.4) fL Neut % (Auto) % Lymph % (Auto) % [place] % (Auto) % Eos % (Auto) % Baso % (Auto) % Neut # (Auto) (1.8-7.7) 10^3/u L Lymph # (Auto) (0.8-4.8) 10^3/u L [place] # (Auto) (0.2-0.9) 10^3/u L Eos # (Auto) (0.0-0.8) 10^3/u L Baso # (Auto) (0.0-0.1) 10^3/u L Nucleated RBC % (a uto) % Nucleated RBCs # /100WBC PT (12.1-14.9) SECO NDS INR (0.8-1.2) D-Dimer (0-0.59) ug/mIFE U Specimen Type Arterial Sample Site Radial, left ABG pH 7.39 (7.35-7.45) ABG pCO2 35.3 (35-45) mmHg ABG pO2 52.5 L (80.0-100.0) mmH g ABG HCO3 21.2 L (22-26) mmol/L ABG Base Excess -3.4 L (-2.0-2.0) mmol/ L Caleb Test Pos Hematocrit 28.2 L (37-47) % Hgb O2 Saturation 84.4 L (95-100) % Carboxyhemoglobin 1.4 (0.4-20.1) %THgb Methemoglobin 0.7 (0.4-1.5) % Total Hemoglobin 9.2 L (12-16) g/dL O2 Delivery Device Nc O2 Liters/Min 30.0 % FiO2 60.0 % Lithographer Apprentice ID Cak Sodium 143 (136-145) mmol/L Potassium 4.2 (3.5-5.1) mmol/L Chloride 113 H (98-107) mmol/L Carbon Dioxide 20 L (22-29) mmol/L Anion Gap 14.2 (5-19) BUN 10 (6-20) mg/dL Creatinine 1.4 H (0.5-0.9) mg/dL GFR Calculation 40.5 L (90-130) mL/min Glucose 42 L (65-115) mg/dL POC Glucose (70-110) mg/dL Calculated Osmolal ity 292 (285-295) mOsm/k g Lactic Acid 4.1 H* (0.5-2.2) mmol/L Lactic Acid (Sepsi s) (0.5-2.2) mmol/L Calcium 7.4 L (8.5-10.5) mg/dL Total Bilirubin 1.6 H (0.15-1.2) mg/dL AST 131 H (0-32) U/L ALT 106 H (0-33) U/L Alkaline Phosphata se 213 H (35-105) IU/L Total Protein 3.5 L (6.6-8.7) g/dL Albumin 1.5 L (3.5-5.2) g/dL Globulin 2.0 (1.3-4.6) g/dL Lipase 6 L (13-60) U/L Influenza Type A A g (Negative) Influenza Type B A g (Negative) SARS-CoV-2 Ag (Rap id) 02/26/20 02/26/20 02/26/20 Range/Units 18:50 21:00 21:00 WBC 9.2 (4.0-10.0) 10^3/ uL RBC 2.48 L (4.1-5.3) 10^6/u L Hgb 9.0 L (11.5-15.3) g/dL Hct 29.1 L (37.0-47.0) % MCV 117.3 H (81-99) fL MCH 36.3 H (28.0-34.0) pg MCHC 30.9 (30.0-36.0) g/dL RDW 14.5 (12.1-15.1) % Plt Count 37 L (130-400) 10^3/c mm MPV 13.0 H (7.4-10.4) fL Neut % (Auto) 86.7 % Lymph % (Auto) 9.9 % [place] % (Auto) 2.4 % Eos % (Auto) 0.0 % Baso % (Auto) 0.3 % Neut # (Auto) 7.96 H (1.8-7.7) 10^3/u L Lymph # (Auto) 0.9 (0.8-4.8) 10^3/u L [place] # (Auto) 0.2 (0.2-0.9) 10^3/u L Eos # (Auto) 0.0 (0.0-0.8) 10^3/u L Baso # (Auto) 0.0 (0.0-0.1) 10^3/u L Nucleated RBC % (a uto) 0 % Nucleated RBCs # 0.0 /100WBC PT (12.1-14.9) SECO NDS INR (0.8-1.2) D-Dimer (0-0.59) ug/mIFE U Specimen Type Sample Site ABG pH (7.35-7.45) ABG pCO2 (35-45) mmHg ABG pO2 (80.0-100.0) mmH g ABG HCO3 (22-26) mmol/L ABG Base Excess (-2.0-2.0) mmol/ L Caleb Test Hematocrit (37-47) % Hgb O2 Saturation (95-100) % Carboxyhemoglobin (0.4-20.1) %THgb Methemoglobin (0.4-1.5) % Total Hemoglobin (12-16) g/dL O2 Delivery Device O2 Liters/Min % FiO2 % Lithographer Apprentice ID Sodium (136-145) mmol/L Potassium (3.5-5.1) mmol/L Chloride (98-107) mmol/L Carbon Dioxide (22-29) mmol/L Anion Gap (5-19) BUN (6-20) mg/dL Creatinine (0.5-0.9) mg/dL GFR Calculation (90-130) mL/min Glucose (65-115) mg/dL POC Glucose (70-110) mg/dL Calculated Osmolal ity (285-295) mOsm/k g Lactic Acid (0.5-2.2) mmol/L Lactic Acid (Sepsi s) 3.4 H (0.5-2.2) mmol/L Calcium (8.5-10.5) mg/dL Total Bilirubin (0.15-1.2) mg/dL AST (0-32) U/L ALT (0-33) U/L Alkaline Phosphata se (35-105) IU/L Total Protein (6.6-8.7) g/dL Albumin (3.5-5.2) g/dL Globulin (1.3-4.6) g/dL Lipase (13-60) U/L Influenza Type A A g (Negative) Influenza Type B A g (Negative) SARS-CoV-2 Ag (Rap id) Positive H 02/26/20 02/26/20 02/26/20 Range/Units 22:55 23:05 23:36 WBC (4.0-10.0) 10^3/ uL RBC (4.1-5.3) 10^6/u L Hgb (11.5-15.3) g/dL Hct (37.0-47.0) % MCV (81-99) fL MCH (28.0-34.0) pg MCHC (30.0-36.0) g/dL RDW (12.1-15.1) % Plt Count (130-400) 10^3/c mm MPV (7.4-10.4) fL Neut % (Auto) % Lymph % (Auto) % [place] % (Auto) % Eos % (Auto) % Baso % (Auto) % Neut # (Auto) (1.8-7.7) 10^3/u L Lymph # (Auto) (0.8-4.8) 10^3/u L [place] # (Auto) (0.2-0.9) 10^3/u L Eos # (Auto) (0.0-0.8) 10^3/u L Baso # (Auto) (0.0-0.1) 10^3/u L Nucleated RBC % (a uto) % Nucleated RBCs # /100WBC PT (12.1-14.9) SECO NDS INR (0.8-1.2) D-Dimer (0-0.59) ug/mIFE U Specimen Type Sample Site ABG pH (7.35-7.45) ABG pCO2 (35-45) mmHg ABG pO2 (80.0-100.0) mmH g ABG HCO3 (22-26) mmol/L ABG Base Excess (-2.0-2.0) mmol/ L Caleb Test Hematocrit (37-47) % Hgb O2 Saturation (95-100) % Carboxyhemoglobin (0.4-20.1) %THgb Methemoglobin (0.4-1.5) % Total Hemoglobin (12-16) g/dL O2 Delivery Device O2 Liters/Min % FiO2 % Lithographer Apprentice ID Sodium (136-145) mmol/L Potassium (3.5-5.1) mmol/L Chloride (98-107) mmol/L Carbon Dioxide (22-29) mmol/L Anion Gap (5-19) BUN (6-20) mg/dL Creatinine (0.5-0.9) mg/dL GFR Calculation (90-130) mL/min Glucose (65-115) mg/dL POC Glucose 20 60 114 (70-110) mg/dL Calculated Osmolal ity (285-295) mOsm/k g Lactic Acid (0.5-2.2) mmol/L Lactic Acid (Sepsi s) (0.5-2.2) mmol/L Calcium (8.5-10.5) mg/dL Total Bilirubin (0.15-1.2) mg/dL AST (0-32) U/L ALT (0-33) U/L Alkaline Phosphata se (35-105) IU/L Total Protein (6.6-8.7) g/dL Albumin (3.5-5.2) g/dL Globulin (1.3-4.6) g/dL Lipase (13-60) U/L Influenza Type A A g (Negative) Influenza Type B A g (Negative) SARS-CoV-2 Ag (Rap id) Discharge Plan Discharge Patient Disposition: Admitted As Inpatient Admit Provider: Priya Ruiz Clinical Impression: Acute hypoxemic respiratory failure due to COVID-19, Sepsis, Pneumonia due to 2019 novel coronavirus Condition: Stable 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 of Care Code ED Wrecker Operator for Kimberly Gilman
[2020-03-13] MEDS: ipratropium-albuterol 3 mL Neb INHALATION ×5 (04:30→19:50)
[2020-03-13] MEDS: LORazepam 2 mg/mL INJ 1 mL IVP (04:30)
[2020-03-13] MEDS: succinylcholine 20 mg/mL SDV 10mL 125 MG IVP (04:31)
[2020-03-13] MEDS: fentaNYL 50 mcg/mL INJ 2mL 100 MCG IVP (04:34)
--- NOTE | 2020-03-13 04:36 | XR_ITS ---
WS: [id number] XR chest 1V portable [id number] REASON FOR EXAM: OG PLACEMENT FINDINGS: The lower right chest and epigastric region and multiple overlying tubes and leads. The endotracheal tube remains in position approximately 2 cm above the shannon. The nasogastric tube r emains in position in the distal esophagus above the level of the gastroesophageal junction. Left arm PICC line tip is in the left subclavian vein. Again is noted the central airspace disease. XR/XR chest 1V portable [id number] IMPRESSION: Diffuse central airspace disease with tube and line placements as above.
[2020-03-13] MEDS: vecuronium 10 mg SDV IVP (04:47)
[2020-03-13 05:00] LABS: Arterial Blood Gas Hematocrit 28.5 % (37-47); Base Excess ABG 5.5 mmol/L (-2.0-2.0); Blood Gas Allen Test Pos; Blood Gas Sample Site Radial, right; Blood Gas Sample Type Arterial; HCO3 ABG 33.2 mmol/L (22-26); Oxygen Device VENT; PO2 ABG 49.3 mmHg (80.0-100.0)
[2020-03-13 05:46] LABS: Basophils # 0.1 10^3/uL (0.0-0.1); Basophils % 0.4 %; Eosinophils # 0.5 10^3/uL (0.0-0.8); Hematocrit 29.1 % (37.0-47.0); Hemoglobin 8.7 g/dL (11.5-15.3); Lymphocytes # 0.9 10^3/uL (0.8-4.8); Lymphocytes % 3.9 %; Mean Corpuscular HGB Conc 29.9 g/dL (30.0-36.0); Mean Corpuscular Hemoglobin 30.5 pg (28.0-34.0); Mean Corpuscular Volume 102.1 fL (81-99); Mean Platelet Volume 12.7 fL (7.4-10.4); Monocytes # 0.3 10^3/uL (0.2-0.9); Monocytes % 1.4 %; Neutrophils # 21.21 10^3/uL (1.8-7.7); Neutrophils % 89.9 %; Nucleated Red Blood Cells # 0.4 /100WBC; Nucleated Red Blood Cells % 1.8 %; Platelet Count 112 10^3/cmm (130-400); Red Blood Count 2.85 10^6/uL (4.1-5.3); Red Cell Distribution Width 18.9 % (12.1-15.1); White Blood Count 23.6 10^3/uL (4.0-10.0)
--- NOTE | 2020-03-13 05:56 | PC.NURSE ---
Patient layiing with eyes closed. BP 138/97 P 131, R 24 on current vent settings SpO2 is 88% with EtCO2 of 47 Patient tolerating intubation well Fentayl currently running at 100 mcg per hour and patient still opens eyes to touch of her hand and calling of name but then closes them after only a short time. Will continue to monitor and follow current plan of care.
[2020-03-13 06:01] LABS: Alanine Aminotransferase 34 U/L (0-33); Albumin Level 3.2 g/dL (3.5-5.2); Alkaline Phosphatase 108 IU/L (35-105); Anion Gap 11.5 (5-19); Aspartate Amino Transferase 48 U/L (0-32); Blood Urea Nitrogen 18 mg/dL (6-20); Calcium 8.9 mg/dL (8.5-10.5); Carbon Dioxide 34 mmol/L (22-29); Chloride 107 mmol/L (98-107); Glomerular Filtration Rate 132.8 mL/min (90-130); Glucose 92 mg/dL (65-115); Magnesium 1.8 mg/dL (1.7-2.3); Osmolality Calculated 310 mOsm/kg (285-295); Potassium 3.5 mmol/L (3.5-5.1); Sodium 149 mmol/L (136-145); Total Bilirubin 2.4 mg/dL (0.15-1.2); Total Protein 5.2 g/dL (6.6-8.7)
[2020-03-13] MEDS: propofol 1,000 MG/100 ML INJ 2.5 MG IV (06:31)
--- NOTE | 2020-03-13 06:53 | PC.NURSE ---
Provider notified of patient still awaking to light touch and her name being called verbally, as well as breathing independently over the ventilator. New order to start propofol. started infusion at 0630 at 5 mcg/kg/min. reassesed patient at 0652 and was still responsive with no change. Titrated propofol to 15 mcg/kg/min at this time will continue to monitor and assess. Fentanyl drip also continues to run at 10 mL per hour. Report to be given to oncoming shift. Blood sugar noted to be at 81 this am. soft non violent restraints are in use at this time. patient circulation and skin color intact and within normal limits. restraints released and reapplied after ROM conducted.
[2020-03-13 07:26] LABS: Glucose Point of Care 77 mg/dL (70-110)
[2020-03-13 07:27] LABS: Glucose Point of Care 72 mg/dL (70-110)
[2020-03-13 07:27] LABS: Glucose Point of Care 81 mg/dL (70-110)
[2020-03-13 07:27] LABS: Glucose Point of Care 71 mg/dL (70-110)
--- NOTE | 2020-03-13 08:06 | PC.OT ---
OT NOTE: HOLD OT TX DUE TO DECLINE IN STATUS. WILL MONITOR AND TREAT APPROPRIATE.
[2020-03-13] MEDS: budesonide 0.5 mg/2 mL Neb INHALATION ×2 (08:18→19:50)
--- NOTE | 2020-03-13 08:46 | P.PN_ITS ---
Subjective Subjective: Interval history: Patient did not do well last night and was intubated. Her chest x-ray shows worsening bilateral infiltrates highly suggestive of ARDS. White blood cell count increased to 23.6. Hemoglobin and platelets slightly improved. Bilirubin up to 2.4. She is sedated with propofol. She is on 100% FiO2 saturating in the mid 90s. Medications: Reviewed: Yes Vitals/I&O/Wt Last Vital Signs Temp 100.1 F H 03/12/20 15:00 Pulse 100 03/13/20 08:18 Resp 20 H 03/13/20 08:19 BP 133/90 03/13/20 06:00 Pulse Ox 90 03/13/20 08:18 03/12/20 03/13/20 03/13/20 22:59 06:59 14:59 Intake Total 1050 / 1150 805.500 / 1955.500 2.125 / 2.125 Output Total 200 / 1300 550 / 1850 Balance 850 / -150 255.500 / 105.500 2.125 / 2.125 Weight last 48 hrs Weight 74.191 kg Weight 83.6 kg Physical Exam Const: COMMON NORMALS: no acute distress Resp: OTHER: On BiPAP, diffuse Rales throughout but appears slightly improved. Cardio: COMMON NORMALS: regular rate, regular rhythm and S2 normal heart sound present RATE: regular rate RHYTHM: regular rhythm HEART SOUNDS: S2 normal heart sound present OTHER: 2+ lower extremity edema GI: COMMON NORMALS: Normal to inspection, nondistended, normoactive bowel sounds present and Soft to palpation PALPATION: Yes Soft to palpation OTHER: Epigastric area tenderness. Neuro: COMMON NORMALS: no focal motor deficits Urinary Catheter Management^: [place]: Cath Placed During This Visit: yes Reason for Continuing Indwelling Catheter: Accurate Measurement of Urinary Output in Critically Ill Patients Urinary Catheter Date of Insertion: 02/27/20 Urinary Catheter Time of Insertion: 01:30 Data : 03/13/20 05:19 03/13/20 05:19 Micro: Microbiology 03/10/20 14:52 Urine Culture - Preliminary Urine Catheterized Yeast A&P Assessment and plan (1) Acute hypoxemic respiratory failure due to COVID-19: Worsened hypoxia today, requiring 100% FiO2 support on BiPAP, IPAP 10. Interim ventilator dyssynchrony. Given 1 dose of Ativan. Persistent edema, bilateral crackles. She is receiving 60 mg IV Lasix. TPN held. Discussed with her mother. Goals of care CODE STATUS updated. Discussed with pulmonology. If does not improve may need to proceed to intubation which in itself may be rather risky, but may be her only option should she not improve or decline further. Decadron 6mg every 24 hours. Empiric antibiotic. Diflucan. Will check w pharmacy if we have caspofungin. Repeat blood culture, fungal culture. Urine culture. Once able to, remove CVC, send tip for culture. At the moment very poor peripheral access. Status: Acute (2) Septic shock: As above. Severe COVID-19. Empiric antibiotics for possible superimposed bacterial pulmonary infection. Candidal UTI. Additional assessment by CT abdomen pelvis due to abdominal pain shows improving colitis. Status: Acute (3) Thrombocytopenia: Will repeat LDH. Haptoglobin. Will ask hematology for additional peripheral smear review. Responded to PLT transfusion. Prophylactic Lovenox. Continue treatment of sepsis. Peripheral smear without schistocytes, however, with some noted dysmorphic metamyelocytes and myelocytes. Suspect likely secondary to infection. Possibly folic acid deficiency. As recommended by pathology flow cytometry is ordered to exclude myeloid disorder. HIT antibody negative. Suspected underlying liver fibrosis or possibly cirrhosis. No splenomegaly. Discussed with her mother. Status: Acute (4) Acute respiratory distress syndrome (ARDS) due to 2019 novel coronavirus: As above. Status: Acute (5) Anemia: Responded to RBC transfusion. Repeat tests for possible hemolysis. Repeat peripheral smear. D/w pulmonology additional DD. Does not appear typical for [facility]. Will request Jahaira-2R. Checking vitamin K level. Copper level. Normal B12. Folic acid deficiency. Folic acid added to TPN. Would benefit from folic acid replacement once able to administer enteric feeds. Status: Acute (6) PAT (acute kidney injury): Improved. Status: Acute (7) Hepatic encephalopathy: Ammonia is better. Suspected urea cycle disorder related to bariatric surgery. Lactulose enemas as tolerating. Given quite severe swings in oxygenation previously, with reported desaturation very rapidly when at times she would pull off BiPAP, despite almost immediate replacement anoxic brain injury is possible. Difficult to tell at this time due to still ongoing acute processes. She is not able to be assessed by MRI. This may need to be considered if there is no improvement in mental status despite improvement in other areas. Status: Acute (8) Protein-calorie malnutrition: TPN Status: Acute Qualifiers: Protein-calorie malnutrition severity: unspecified severity Qualified Code(s): E46 - Unspecified protein-calorie malnutrition (9) Hypernatremia: Better. Status: Acute (10) Metabolic acidosis: Status: Acute (11) Hypoglycemia: Monitor while holding tpn. Status: Acute (12) DIC (disseminated intravascular coagulation): Appears stabilized. Status: Acute (13) Opioid dependence: Status: Acute Qualifiers: Substance use status: uncomplicated Qualified Code(s): F11.20 - Opioid dependence, uncomplicated (14) Gastroparesis: Poor po intake resulting in malnutrition, NPO for now, high risk for aspiration Hx partial gastric resection. Status: Acute (15) Hypokalemia: Additional replacement. Status: Acute Additional A&P Information Recent echo EF 60%, no RWMA, gr 1 diastolic dysfunction from 04/2019 Hypocalcemia: Resolved Transmainitis, LFTs elevated but improved over early Feb. This could be related to cholestasis. Patient noted to have epigastric area abdominal pain today and therefore gallbladder ultrasound requested. History of partial gastrectomy: Would benefit from vitamin D supplementation. Check vitamin A, E, K, copper. PLAN: We will restart Lasix and add hydrochlorothiazide to hopefully bring down sodium. Discussed with RN and we will place OG and start patient on tube feeds and her oral medications. Will request dietary consultation. Although patient was on close to 2 weeks of antibiotics given the fact that clinically patient worsened along with increased WBC I will restart vancomycin and start Levaquin. Will also start patient on dexamethasone and resume Lovenox, prophylactic dose and closely monitor CBC and CMP. Discussed with RT and we will bring down FiO2 as saturations permit to keep patient around 90. Attestations Medical Necessity Statement*: Patient with respiratory failure on mechanical ventilation requires close ICU monitoring and treatment. Time Spent in Patient Care: Greater than 35 minutes 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 Metal Tank Builder for Kimberly Gilman Diagnoses Acute hypoxemic respiratory failure due to COVID-19 U07.1; J96.01 Septic shock A41.9; R65.21 Thrombocytopenia D69.6 Acute respiratory distress syndrome (ARDS) due to 2019 novel coronavirus U07.1; J80 Anemia D64.9 PAT (acute kidney injury) N17.9 Hepatic encephalopathy K72.90 Protein-calorie malnutrition E46 Protein-calorie malnutrition severity: unspecified severity Hypernatremia E87.0 Metabolic acidosis E87.2 Hypoglycemia E16.2 DIC (disseminated intravascular coagulation) D65 Opioid dependence F11.20 Substance use status: uncomplicated Gastroparesis K31.84 Hypokalemia E87.6
[2020-03-13] MEDS: dexamethasone 4 mg/mL INJ 6 MG IVP (09:31)
[2020-03-13] MEDS: famotidine 20 mg/2 mL INJ IVP ×2 (09:32→20:22)
[2020-03-13] MEDS: vancomycin 1,250 MG/250 ML PIGGYBACK 250 MG IV ×2 (09:32→21:06)
[2020-03-13] MEDS: levofloxacin-dextrose 5 % 750 MG/150 ML PREMIX 100 MG IV (09:36)
[2020-03-13] MEDS: enoxaparin 40 mg/0.4 mL Syringe SUBCUT (09:36)
--- NOTE | 2020-03-13 10:28 | XR_ITS ---
WS: [id number] XR chest 1V portable [id number] REASON FOR EXAM: og placement FINDINGS: Compared to the examinations of earlier today the nasogastric tube has been advanced. It is well belo w the hemidiaphragms. Patient has had previous gastric surgery which would significantly alter the an atomy. Therefore, the exact position of the nasogastric tube would be uncertain. Likely it is in the gastric remnant. XR/XR chest 1V portable [id number] IMPRESSION: Advancement of the nasogastric tube as above.
--- NOTE | 2020-03-13 11:40 | PC.NUTR ---
NUTR TF RECOMMENDATIONS: Jevity 1.2 with a goal rate of 45 ml/hr providing 1296 kcal (95%), 59 g PRO (100%), and 872 ml fluid (64%)(%NEEDS). Suggest starting TF at 25 ml/hr and increase by 10 ml Q6H as tolerated till goal rate is met. Suggest H2O flushes of 60 ml Q4H to approach fluid needs or per physician.
[2020-03-13 12:14] LABS: Glucose Point of Care 88 mg/dL (70-110)
[2020-03-13] MEDS: propofol 1,000 MG/100 ML INJ 12.5 MG IV (12:22)
--- NOTE | 2020-03-13 15:42 | PC.NURSE ---
tube feeds started per nutrition order
[2020-03-13 16:40] LABS: ABG PCO2 45.7 mmHg (35-45); ABG PH Result 7.32 (7.35-7.45); Arterial Blood Gas Hematocrit 28.5 % (37-47); Base Excess ABG -2.4 mmol/L (-2.0-2.0); Blood Gas Operator Identificat HARKR; Blood Gas Sample Site Brachial, left; Blood Gas Sample Type Arterial; HCO3 ABG 23.7 mmol/L (22-26); Oxygen Device BIPAP; PO2 ABG 77.3 mmHg (80.0-100.0)
--- NOTE | 2020-03-13 16:43 | USCV_ITS ---
Therese Schaefer Age: 44 Gender: F : 1975 Exam Date: 03/13/2020 17:12 Ordering Phys: Modesto Nolan MD Technologist: Jake Salazar Exam Location: [facility] [place] Indication: BILAT ARM SWELLING WORSE ON LT HISTORY: Upper extremity edema. PROCEDURES: Venous duplex imaging was performed in bilateral upper extremities. The following venous structures were evaluated: internal jugular vein, subclavian vein, axillary vein, and brachial veins. In addition, the basilic vein, cephalic vein, radial vein, and ulnar vein. Serial compression, augmentation maneuvers, and spectral Doppler flow evaluation were performed. PIC LINE PRESENT ON LT SIDE IS NORMAL FINDINGS: The veins were found to be easily compressible with spontaneous blood flow. Non pulsatile flow pattern. CONCLUSIONS Patent upper extremity veins bilaterally , identified as above No evidence of thrombosis Dr Rani Monique MD [facility] (Electronically Signed) Final Date: 13 March 2020 20:09 S
[2020-03-13 17:03] LABS: Glucose Point of Care 131 mg/dL (70-110)
[2020-03-13] MEDS: FUROsemide 10 mg/mL SDV 10mL 60 MG IVP (17:27)
[2020-03-13] MEDS: metoprolol tartrate 25 mg Tablet PO (17:27)
[2020-03-13] MEDS: propofol 1,000 MG/100 ML INJ 17.6 MG IV (17:51)
--- NOTE | 2020-03-13 19:34 | PC.NURSE ---
Will turn patient later when time for vitals and accu-checks
--- NOTE | 2020-03-13 20:43 | PC.NURSE ---
Patient blood glucose is 181
[2020-03-13 21:04] LABS: Glucose Point of Care 181 mg/dL (70-110)
[2020-03-13] MEDS: artificial tears Op Soln 15 mL Btl 1 DROP EYE-BOTH (21:06)
--- NOTE | 2020-03-13 23:34 | PC.RESP ---
2350: Dr García notified of pt's slight increase in etcO2 to 53 mm hg with minute ventilation of 4.4.5 L, tidal volume in the low 300s. Dr. García is aware, no changes at this time. 0042: Increased RR to [address] García. O2 sat is now 96% on 85%, tidal volume is about 320 ml, minute ventilation is now 5.5 L, ETCO2 is down the 51 now.
[2020-03-14] VITALS (42 sets, daily range): BP systolic 95–108; BP diastolic 60–75; PULSE 82–104; RESP 16–20; TEMP 36.6–37.4; O2SAT 90–99
[2020-03-14] MEDS: ipratropium-albuterol 3 mL Neb INHALATION ×7 (00:05→23:14)
[2020-03-14] MEDS: propofol 1,000 MG/100 ML INJ 17.6 MG IV ×3 (00:22→11:01)
[2020-03-14 04:04] LABS: ABG PH Result 7.32 (7.35-7.45); Alveolar-Arterial Oxygen Gradi 56.5 mmHg (5-10); Arterial Blood Gas Hematocrit 22.9 % (37-47); Blood Gas Sample Site Radial, right; Blood Gas Sample Type Arterial; Carboxyhemoglobin 2.4 %THgb (0.4-20.1); HCO3 ABG 32.9 mmol/L (22-26); HGB O2 Sat 93.7 % (95-100); Ionized Calcium Level - ABG 1.2 mmol/L (1.1-1.4); Methemoglobin 1.3 % (0.4-1.5); Oxygen Device VENT; Oxygen Saturation ABG 97.4; PO2 ABG 91.2 mmHg (80.0-100.0); Potassium Level - ABG 3.2 mmol/L (3.5-5.0); Total Hemoglobin 7.5 g/dL (12-16)
[2020-03-14] MEDS: artificial tears Op Soln 15 mL Btl 1 DROP EYE-BOTH ×2 (04:13→16:31)
[2020-03-14 05:40] LABS: Alanine Aminotransferase 26 U/L (0-33); Albumin Level 3.3 g/dL (3.5-5.2); Alkaline Phosphatase 80 IU/L (35-105); Anion Gap 15.4 (5-19); Aspartate Amino Transferase 32 U/L (0-32); Blood Urea Nitrogen 22 mg/dL (6-20); Carbon Dioxide 33 mmol/L (22-29); Chloride 105 mmol/L (98-107); Globulin 1.8 g/dL (1.3-4.6); Glomerular Filtration Rate 107.6 mL/min (90-130); Glucose 213 mg/dL (65-115); Magnesium 1.8 mg/dL (1.7-2.3); Osmolality Calculated 320 mOsm/kg (285-295); Potassium 3.4 mmol/L (3.5-5.1); Sodium 150 mmol/L (136-145); Total Bilirubin 1.9 mg/dL (0.15-1.2); Total Protein 5.1 g/dL (6.6-8.7)
[2020-03-14] MEDS: levofloxacin-dextrose 5 % 750 MG/150 ML PREMIX 100 MG IV (06:35)
[2020-03-14] MEDS: dexamethasone 4 mg/mL INJ 6 MG IVP (06:36)
[2020-03-14 06:46] LABS: Basophils % 0.3 %; Eosinophils % 0.2 %; Hemoglobin 6.6 g/dL (11.5-15.3); Lymphocytes # 0.3 10^3/uL (0.8-4.8); Lymphocytes % 4.8 %; Mean Corpuscular Volume 103.3 fL (81-99); Mean Platelet Volume 12.6 fL (7.4-10.4); Monocytes # 0.1 10^3/uL (0.2-0.9); Monocytes % 1.6 %; Neutrophils # 5.77 10^3/uL (1.8-7.7); Neutrophils % 92.3 %; Nucleated Red Blood Cells % 0.5 %; Platelet Count 45 10^3/cmm (130-400); Red Blood Count 2.13 10^6/uL (4.1-5.3); Red Cell Distribution Width 18.1 % (12.1-15.1); White Blood Count 6.3 10^3/uL (4.0-10.0)
--- NOTE | 2020-03-14 07:19 | P.PN_ITS ---
Subjective Subjective: Interval history: Patient is intubated and sedated this morning on propofol and fentanyl. Her generalized swelling much improved but she still has some bilateral upper extremity swelling. Ultrasound showed no evidence of DVT. Her oxygen requirement also improved and she is saturating in the mid 90s on 80% FiO2 this morning. Her PEEP was at 14 and tidal volume 400. Morning gas showed evidence of retention. Her hemoglobin is down to 6.6 with platelets down to 45. I suspect this is secondary to vancomycin and it was discontinued. WBC is down to 6.3 which is a significant decline and I am not sure this is a true value. We will repeat CBC later today. Medications: Reviewed: Yes Vitals/I&O/Wt Last Vital Signs Temp 99.1 F 03/14/20 04:00 Pulse 97 03/14/20 07:00 Resp 16 03/14/20 03:45 BP 99/68 03/14/20 07:00 Pulse Ox 95 03/14/20 07:00 03/13/20 03/14/20 03/14/20 22:59 06:59 14:59 Intake Total 845.302 / 967.427 183.307 / 1150.734 Output Total 1600 / 1600 625 / 2225 Balance -754.698 / -632.573 -441.693 / -1074.266 Weight last 48 hrs Weight 74.389 kg Weight 74.191 kg Physical Exam Const: COMMON NORMALS: no acute distress Resp: OTHER: On BiPAP, diffuse Rales throughout but appears slightly improved. Cardio: COMMON NORMALS: regular rate, regular rhythm and S2 normal heart sound present RATE: regular rate RHYTHM: regular rhythm HEART SOUNDS: S2 normal heart sound present OTHER: 2+ lower extremity edema GI: COMMON NORMALS: Normal to inspection, nondistended, normoactive bowel sounds present and Soft to palpation PALPATION: Yes Soft to palpation OTHER: Epigastric area tenderness. Neuro: COMMON NORMALS: no focal motor deficits Urinary Catheter Management^: Alcantara: Cath Placed During This Visit: yes Reason for Continuing Indwelling Catheter: Accurate Measurement of Urinary Output in Critically Ill Patients Urinary Catheter Date of Insertion: 02/27/20 Urinary Catheter Time of Insertion: 01:30 Data : 03/14/20 06:30 03/14/20 03:30 Micro: Microbiology 03/11/20 14:30 Catheter Tip Culture - Preliminary Central Line Pseudomonas species 03/10/20 14:52 Urine Culture - Preliminary Urine Catheterized Yeast A&P Assessment and plan (1) Acute hypoxemic respiratory failure due to COVID-19: Worsened hypoxia today, requiring 100% FiO2 support on BiPAP, IPAP 10. In terim ventilator dyssynchrony. Given 1 dose of Ativan. Persistent edema, bilateral crackles. She is receiving 60 mg IV Lasix. TPN held. Discussed with her mother. Goals of care CODE STATUS updated. Discussed with pulmonology. If does not improve may need to proceed to intubation which in itself may be rather risky, but may be her only option should she not improve or decline further. Decadron 6mg every 24 hours. Empiric antibiotic. Diflucan. Will check w pharmacy if we have caspofungin. Repeat blood culture, fungal culture. Urine culture. Once able to, remove CVC, send tip for culture. At the moment very poor peripheral access. Status: Acute (2) Septic shock: As above. Severe COVID-19. Empiric antibiotics for possible superimposed bacterial pulmonary infection. Candidal UTI. Additional assessment by CT abdomen pelvis due to abdominal pain shows improving colitis. Status: Acute (3) Thrombocytopenia: Will repeat LDH. Haptoglobin. Will ask hematology for additional peripheral smear review. Responded to PLT transfusion. Prophylactic Lovenox. Continue treatment of sepsis. Peripheral smear without schistocytes, however, with some noted dysmorphic metamyelocytes and myelocytes. Suspect likely secondary to infection. Possibly folic acid deficiency. As recommended by pathology flow cytometry is ordered to exclude myeloid disorder. HIT antibody negative. Suspected underlying liver fibrosis or possibly cirrhosis. No splenomegaly. Discussed with her mother. Status: Acute (4) Acute respiratory distress syndrome (ARDS) due to 2019 novel coronavirus: As above. Status: Acute (5) Anemia: Responded to RBC transfusion. Repeat tests for possible hemolysis. Repeat peripheral smear. D/w pulmonology additional DD. Does not appear typical for [facility]. Will request Jahaira-2R. Checking vitamin K level. Copper level. Normal B12. Folic acid deficiency. Folic acid added to TPN. Would benefit from folic acid replacement once able to administer enteric feeds. Status: Acute (6) PAT (acute kidney injury): Improved. Status: Acute (7) Hepatic encephalopathy: Ammonia is better. Suspected urea cycle disorder related to bariatric surgery. Lactulose enemas as tolerating. Given quite severe swings in oxygenation previously, with reported desaturation very rapidly when at times she would pull off BiPAP, despite almost immediate replacement anoxic brain injury is possible. Difficult to tell at this time due to still ongoing acute processes. She is not able to be assessed by MRI. This may need to be considered if there is no improvement in mental status despite im provement in other areas. Status: Acute (8) Protein-calorie malnutrition: TPN Status: Acute Qualifiers: Protein-calorie malnutrition severity: unspecified severity Qualified Code(s): E46 - Unspecified protein-calorie malnutrition (9) Hypernatremia: Better. Status: Acute (10) Metabolic acidosis: Status: Acute (11) Hypoglycemia: Monitor while holding tpn. Status: Acute (12) DIC (disseminated intravascular coagulation): Appears stabilized. Status: Acute (13) Opioid dependence: Status: Acute Qualifiers: Substance use status: uncomplicated Qualified Code(s): F11.20 - Opioid dependence, uncomplicated (14) Gastroparesis: Poor po intake resulting in malnutrition, NPO for now, high risk for aspiration Hx partial gastric resection. Status: Acute (15) Hypokalemia: Additional replacement. Status: Acute Additional A&P Information Recent echo EF 60%, no RWMA, gr 1 diastolic dysfunction from 04/2019 Hypocalcemia: Resolved Transmainitis, LFTs elevated but improved over early Feb. This could be related to cholestasis. Patient noted to have epigastric area abdominal pain today and therefore gallbladder ultrasound requested. History of partial gastrectomy: Would benefit from vitamin D supplementation. Check vitamin A, E, K, copper. PLAN: We will discontinue Lovenox and discontinue vancomycin as it is likely the cause of patient's drop in platelets. Discontinue Lasix and albumin and continue hydrochlorothiazide and tube feeds. We will give patient 1 unit of PRBC and repeat CBC Adjust ventilator settings to improve ABG. Attestations Medical Necessity Statement*: Patient with respiratory failure requiring mechanical ventilation requires close ICU monitoring and treatment. 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 Procedures Tech for [facility] Fwd Exam Expanded Problem Focused Diagnoses Acute hypoxemic respiratory failure due to COVID-19 U07.1; J96.01 Septic shock A41.9; R65.21 Thrombocytopenia D69.6 Acute respiratory distress syndrome (ARDS) due to 2019 novel coronavirus U07.1; J80 Anemia D64.9 PAT (acute kidney injury) N17.9 Hepatic encephalopathy K72.90 Protein-calorie malnutrition E46 Protein-calorie malnutrition severity: unspecified severity Hypernatremia E87.0 Metabolic acidosis E87.2 Hypoglycemia E16.2 DIC (disseminated intravascular coagulation) D65 Opioid dependence F11.20 Substance use status: uncomplicated Gastroparesis K31.84 Hypokalemia E87.6
[2020-03-14 07:31] LABS: Glucose Point of Care 224 mg/dL (70-110)
[2020-03-14 07:31] LABS: Glucose Point of Care 221 mg/dL (70-110)
[2020-03-14 07:31] LABS: Glucose Point of Care 188 mg/dL (70-110)
[2020-03-14] MEDS: budesonide 0.5 mg/2 mL Neb INHALATION ×2 (07:54→19:27)
--- NOTE | 2020-03-14 08:51 | PC.NURSE ---
I scanned the new fentanyl bag because nightshift ordered a new bag. I then went to hang it and realized there was at least 30mls in old bag. CLAUDIA English verified with me and will finish bag and then hang new one.
[2020-03-14] MEDS: hydroCHLOROthiazide 25 mg Tablet 50 MG PO (08:54)
[2020-03-14] MEDS: lanolin oint 7 gm 1 APPLIC TOPICAL (08:54)
[2020-03-14] MEDS: famotidine 20 mg/2 mL INJ IVP ×2 (08:54→20:03)
[2020-03-14] MEDS: citalopram 20 mg Tablet PO (08:54)
[2020-03-14] MEDS: metoprolol tartrate 25 mg Tablet PO (08:55)
--- NOTE | 2020-03-14 09:00 | PC.NURSE ---
MD aware of morning labs. Sodium, Potassium, h&h, etc.
[2020-03-14 11:48] LABS: Glucose Point of Care 168 mg/dL (70-110)
[2020-03-14 11:56] LABS: Basophils % 0.2 %; Eosinophils % 0.2 %; Lymphocytes # 0.2 10^3/uL (0.8-4.8); Lymphocytes % 3.3 %; Mean Corpuscular HGB Conc 30.4 g/dL (30.0-36.0); Mean Corpuscular Hemoglobin 31.7 pg (28.0-34.0); Mean Platelet Volume 13.7 fL (7.4-10.4); Monocytes # 0.1 10^3/uL (0.2-0.9); Monocytes % 1.5 %; Neutrophils # 4.52 10^3/uL (1.8-7.7); Nucleated Red Blood Cells # 0.1 /100WBC; Nucleated Red Blood Cells % 1.2 %; Platelet Count 38 10^3/cmm (130-400); Red Blood Count 1.99 10^6/uL (4.1-5.3); Red Cell Distribution Width 17.9 % (12.1-15.1); White Blood Count 4.8 10^3/uL (4.0-10.0)
[2020-03-14 12:00] LABS: Hematocrit 20.7 % (37.0-47.0); Hemoglobin 6.3 g/dL (11.5-15.3)
--- NOTE | 2020-03-14 14:34 | PC.OT ---
OT tx attempted. Pt is intubated and sedated at this time. Nursing requests therapy to be withheld. Will check on pt status again tomorrow.
[2020-03-14 16:57] LABS: Glucose Point of Care 134 mg/dL (70-110)
[2020-03-14] MEDS: propofol 1,000 MG/100 ML INJ 15 MG IV (17:55)
[2020-03-14 18:09] LABS: ABG PCO2 49.4 mmHg (35-45); ABG PH Result 7.45 (7.35-7.45); Alveolar-Arterial Oxygen Gradi 49.2 mmHg (5-10); Arterial Blood Gas Hematocrit 26.1 % (37-47); Base Excess ABG 9.4 mmol/L (-2.0-2.0); Blood Gas Allen Test Pos; Blood Gas Operator Identificat MONRO; Blood Gas Sample Site Radial, left; Blood Gas Sample Type Arterial; Blood Gas Tidal Volume 0.35; Carboxyhemoglobin 2.3 %THgb (0.4-20.1); HCO3 ABG 34.5 mmol/L (22-26); HGB O2 Sat 90.9 % (95-100); Ionized Calcium Level - ABG 1.2 mmol/L (1.1-1.4); Methemoglobin 1.1 % (0.4-1.5); Oxygen Device VENT; Oxygen Saturation ABG 94.1; PO2 ABG 60.8 mmHg (80.0-100.0); Potassium Level - ABG 3.3 mmol/L (3.5-5.0); Total Hemoglobin 8.5 g/dL (12-16)
[2020-03-14] MEDS: HYDROmorphone 1 mg/mL INJ 1 mL 0.2 MG IVP ×3 (19:40→23:29)
[2020-03-14 20:22] LABS: Glucose Point of Care 168 mg/dL (70-110)
[2020-03-15] VITALS (37 sets, daily range): BP systolic 90–129; BP diastolic 58–85; PULSE 81–104; RESP 16–29; TEMP 37–37.7; O2SAT 89–96; BMI 30.3
[2020-03-15] MEDS: propofol 1,000 MG/100 ML INJ 15 MG IV (01:38)
[2020-03-15] MEDS: HYDROmorphone 1 mg/mL INJ 1 mL 0.2 MG IVP ×3 (01:57→06:14)
[2020-03-15] MEDS: ipratropium-albuterol 3 mL Neb INHALATION ×6 (03:04→23:49)
[2020-03-15 04:46] LABS: Glucose Point of Care 166 mg/dL (70-110)
[2020-03-15 04:57] LABS: Basophils % 0.2 %; Eosinophils % 0.3 %; Hematocrit 25.8 % (37.0-47.0); Hemoglobin 8.3 g/dL (11.5-15.3); Lymphocytes # 0.4 10^3/uL (0.8-4.8); Lymphocytes % 5.6 %; Mean Corpuscular HGB Conc 32.2 g/dL (30.0-36.0); Mean Corpuscular Volume 96.3 fL (81-99); Mean Platelet Volume 13.9 fL (7.4-10.4); Monocytes # 0.1 10^3/uL (0.2-0.9); Monocytes % 1.8 %; Neutrophils # 6.03 10^3/uL (1.8-7.7); Neutrophils % 91.2 %; Nucleated Red Blood Cells # 0.1 /100WBC; Nucleated Red Blood Cells % 1.1 %; Platelet Count 53 10^3/cmm (130-400); Red Blood Count 2.68 10^6/uL (4.1-5.3); Red Cell Distribution Width 20.3 % (12.1-15.1); White Blood Count 6.6 10^3/uL (4.0-10.0)
[2020-03-15 05:25] LABS: Alanine Aminotransferase 24 U/L (0-33); Alkaline Phosphatase 86 IU/L (35-105); Aspartate Amino Transferase 24 U/L (0-32); Blood Urea Nitrogen 23 mg/dL (6-20); Calcium 8.4 mg/dL (8.5-10.5); Carbon Dioxide 32 mmol/L (22-29); Chloride 103 mmol/L (98-107); Creatinine Clr Calc Pharmacy 138.8831; Glomerular Filtration Rate 132.8 mL/min (90-130); Glucose 139 mg/dL (65-115); Magnesium 1.6 mg/dL (1.7-2.3); Osmolality Calculated 306 mOsm/kg (285-295); Sodium 145 mmol/L (136-145); Total Bilirubin 1.5 mg/dL (0.15-1.2)
[2020-03-15 05:30] LABS: Anion Gap 13.5 (5-19); Potassium 3.5 mmol/L (3.5-5.1)
[2020-03-15] MEDS: dexamethasone 4 mg/mL INJ 6 MG IVP (06:15)
[2020-03-15] MEDS: levofloxacin-dextrose 5 % 750 MG/150 ML PREMIX 100 MG IV (06:15)
[2020-03-15 08:08] LABS: Glucose Point of Care 137 mg/dL (70-110)
[2020-03-15] MEDS: budesonide 0.5 mg/2 mL Neb INHALATION ×2 (08:14→19:57)
[2020-03-15] MEDS: hydroCHLOROthiazide 25 mg Tablet 50 MG PO (08:49)
[2020-03-15] MEDS: magnesium sulfate premix 2 GM/50 ML PIGGYBACK IV (09:00)
[2020-03-15] MEDS: lanolin oint 7 gm 1 APPLIC TOPICAL (09:01)
[2020-03-15] MEDS: citalopram 20 mg Tablet PO (09:01)
[2020-03-15] MEDS: artificial tears Op Soln 15 mL Btl 1 DROP EYE-BOTH (09:01)
[2020-03-15] MEDS: famotidine 20 mg/2 mL INJ IVP ×2 (09:05→20:13)
[2020-03-15] MEDS: metoprolol tartrate 25 mg Tablet PO ×2 (09:05→17:30)
--- NOTE | 2020-03-15 09:22 | P.PN_ITS ---
Subjective Subjective: Interval history: Patient is intubated. She is awake and follows commands appropriately. Denies any complaints. Continues to have loose stools. She had 350 mL urinary output since yesterday. Her hemoglobin improved to 8.3 and platelets up to 53. WBC 6.6. Her oxygen was brought down to 65% and PEEP down to 11. Patient saturates mid 90s this morning. Medications: Reviewed: Yes Vitals/I&O/Wt Last Vital Signs Temp 99.3 F 03/15/20 06:00 Pulse 100 03/15/20 08:15 Resp 21 H 03/15/20 08:19 BP 116/77 03/15/20 06:00 Pulse Ox 94 03/15/20 08:15 03/14/20 03/15/20 03/15/20 22:59 06:59 14:59 Intake Total 1031 / 2411.667 987.125 / 3398.792 42 / 42 Output Total 350 / 350 45 / 395 Balance 681 / 2061.667 942.125 / 3003.792 42 / 42 Weight last 48 hrs Weight 80.195 kg Weight 74.389 kg Physical Exam Const: COMMON NORMALS: no acute distress Resp: OTHER: On BiPAP, diffuse Rales throughout but appears slightly improved. Cardio: COMMON NORMALS: regular rate, regular rhythm and S2 normal heart sound present RATE: regular rate RHYTHM: regular rhythm HEART SOUNDS: S2 normal heart sound present OTHER: Trace lower extremity edema GI: COMMON NORMALS: Normal to inspection, nondistended, normoactive bowel sounds present and Soft to palpation PALPATION: Yes Soft to palpation OTHER: Epigastric area tenderness. Neuro: COMMON NORMALS: no focal motor deficits Urinary Catheter Management^: Alcantara: Cath Placed During This Visit: yes Reason for Continuing Indwelling Catheter: Accurate Measurement of Urinary Output in Critically Ill Patients Urinary Catheter Date of Insertion: 02/27/20 Urinary Catheter Time of Insertion: 01:30 Data : 03/15/20 04:00 03/15/20 04:00 Micro: Microbiology 03/11/20 14:30 Catheter Tip Culture - Final Central Line Pseudomonas aeruginosa 03/10/20 14:52 Urine Culture - Final Urine Catheterized Annie albicans A&P Assessment and plan (1) Acute hypoxemic respiratory failure due to COVID-19: Worsened hypoxia today, requiring 100% FiO2 support on BiPAP, IPAP 10. Interim ventilator dyssynchrony. Given 1 dose of Ativan. Persistent edema, bilateral crackles. She is receiving 60 mg IV Lasix. TPN held. Discussed with her mother. Goals of care CODE STATUS updated. Discussed with pulmonology. If does not improve may need to proceed to intubation which in i tself may be rather risky, but may be her only option should she not improve or decline further. Decadron 6mg every 24 hours. Empiric antibiotic. Diflucan. Will check w pharmacy if we have caspofungin. Repeat blood culture, fungal culture. Urine culture. Once able to, remove CVC, send tip for culture. At the moment very poor peripheral access. Status: Acute (2) Septic shock: As above. Severe COVID-19. Empiric antibiotics for possible superimposed bacterial pulmonary infection. Candidal UTI. Additional assessment by CT abdomen pelvis due to abdominal pain shows improving colitis. Status: Acute (3) Thrombocytopenia: Will repeat LDH. Haptoglobin. Will ask hematology for additional peripheral smear review. Responded to PLT transfusion. Prophylactic Lovenox. Continue treatment of sepsis. Peripheral smear without schistocytes, however, with some noted dysmorphic metamyelocytes and myelocytes. Suspect likely secondary to infection. Possibly folic acid deficiency. As recommended by pathology flow cytometry is ordered to exclude myeloid disorder. HIT antibody negative. Suspected underlying liver fibrosis or possibly cirrhosis. No splenomegaly. Discussed with her mother. Status: Acute (4) Acute respiratory distress syndrome (ARDS) due to 2019 novel coronavirus: As above. Status: Acute (5) Anemia: Responded to RBC transfusion. Repeat tests for possible hemolysis. Repeat peripheral smear. D/w pulmonology additional DD. Does not appear typical for [facility]. Will request Jahaira-2R. Checking vitamin K level. Copper level. Normal B12. Folic acid deficiency. Folic acid added to TPN. Would benefit from folic acid replacement once able to administer enteric feeds. Status: Acute (6) PAT (acute kidney injury): Improved. Status: Acute (7) Hepatic encephalopathy: Ammonia is better. Suspected urea cycle disorder related to bariatric surgery. Lactulose enemas as tolerating. Given quite severe swings in oxygenation previously, with reported desaturation very rapidly when at times she would pull off BiPAP, despite almost immediate replacement anoxic brain injury is possible. Difficult to tell at this time due to still ongoing acute processes. She is not able to be assessed by MRI. This may need to be considered if there is no improvement in mental status despite improvement in other areas. Status: Acute (8) Protein-calorie malnutrition: TPN Status: Acute Qualifiers: Protein-calorie malnutrition severity: unspecified severity Qualified Code(s): E46 - Unspecified protein-calorie malnutrition (9) Hypernatremia: Better. Status: Acute (10) Metabolic acidosis: Status: Acute (11) Hypoglycemia: Monitor while holding tpn. Status: Acute (12) DIC (disseminated intravascular coagulation): Appears stabilized. Status: Acute (13) Opioid dependence: Status: Acute Qualifiers: Substance use status: uncomplicated Qualified Code(s): F11.20 - Opioid dependence, uncomplicated (14) Gastroparesis: Poor po intake resulting in malnutrition, NPO for now, high risk for aspiration Hx partial gastric resection. Status: Acute (15) Hypokalemia: Additional replacement. Status: Acute Additional A&P Information Recent echo EF 60%, no RWMA, gr 1 diastolic dysfunction from 04/2019 Hypocalcemia: Resolved Transmainitis, LFTs elevated but improved over early Feb. This could be related to cholestasis. History of partial gastrectomy: Would benefit from vitamin D supplementation. Check vitamin A, E, K, copper. PLAN: Continue current monitoring and treatment. We will keep patient off anticoagulant Continue Pepcid. Unfortunately we were unable to contact patient's mother and request to bring Dexilant. Continue Levaquin and further adjust vent settings and oxygen as needed. Repeat x-ray in a.m. Continue tube feeds. Attestations Medical Necessity Statement*: Patient with acute hypoxic respite failure requires close ICU monitoring and treatment. Time Spent in Patient Care: 16 - 35 minutes 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 Channel Opener for [facility] [employer] Fwd Diagnoses Acute hypoxemic respiratory failure due to COVID-19 U07.1; J96.01 Septic shock A41.9; R65.21 Thrombocytopenia D69.6 Acute respiratory distress syndrome (ARDS) due to 2019 novel coronavirus U07.1; J80 Anemia D64.9 PAT (acute kidney injury) N17.9 Hepatic encephalopathy K72.90 Protein-calorie malnutrition E46 Protein-calorie malnutrition severity: unspecified severity Hypernatremia E87.0 Metabolic acidosis E87.2 Hypoglycemia E16.2 DIC (disseminated intravascular coagulation) D65 Opioid dependence F11.20 Substance use status: uncomplicated Gastroparesis K31.84 Hypokalemia E87.6
[2020-03-15] MEDS: propofol 1,000 MG/100 ML INJ 20.1 MG IV ×3 (11:37→20:28)
[2020-03-15 11:48] LABS: Glucose Point of Care 168 mg/dL (70-110)
[2020-03-15] MEDS: LORazepam 2 mg/mL INJ 1 mL 1 MG IVP ×2 (13:51→20:27)
[2020-03-15 16:46] LABS: Glucose Point of Care 114 mg/dL (70-110)
[2020-03-15 20:09] LABS: Glucose Point of Care 135 mg/dL (70-110)
[2020-03-16] VITALS (42 sets, daily range): BP systolic 94–122; BP diastolic 60–80; PULSE 83–107; RESP 17–545; TEMP 37–37.4; O2SAT 85–97; BMI 30.3
[2020-03-16 00:41] LABS: Glucose Point of Care 135 mg/dL (70-110)
[2020-03-16] MEDS: propofol 1,000 MG/100 ML INJ 20.1 MG IV ×5 (02:10→20:21)
[2020-03-16] MEDS: ipratropium-albuterol 3 mL Neb INHALATION ×6 (03:40→23:34)
--- NOTE | 2020-03-16 04:00 | PC.NURSE ---
When repositioning patient lotion applied to patient back and buttocks.
[2020-03-16 04:01] LABS: ABG PCO2 51.3 mmHg (35-45); ABG PH Result 7.43 (7.35-7.45); Alveolar-Arterial Oxygen Gradi 58.7 mmHg (5-10); Arterial Blood Gas Hematocrit 26.8 % (37-47); Base Excess ABG 8.7 mmol/L (-2.0-2.0); Blood Gas Sample Site Radial, right; Blood Gas Sample Type Arterial; Blood Gas Tidal Volume 0.35; Carboxyhemoglobin 2.5 %THgb (0.4-20.1); HCO3 ABG 34.1 mmol/L (22-26); HGB O2 Sat 88.3 % (95-100); Ionized Calcium Level - ABG 1.2 mmol/L (1.1-1.4); Methemoglobin 1.2 % (0.4-1.5); Oxygen Device VENT; Oxygen Saturation ABG 91.7; PO2 ABG 60.6 mmHg (80.0-100.0); Potassium Level - ABG 3.4 mmol/L (3.5-5.0); Total Hemoglobin 8.7 g/dL (12-16)
[2020-03-16 04:18] LABS: Basophils % 0.4 %; Eosinophils # 0.1 10^3/uL (0.0-0.8); Eosinophils % 1.1 %; Hematocrit 27.1 % (37.0-47.0); Hemoglobin 8.3 g/dL (11.5-15.3); Lymphocytes # 0.5 10^3/uL (0.8-4.8); Lymphocytes % 9.5 %; Mean Corpuscular HGB Conc 30.6 g/dL (30.0-36.0); Mean Corpuscular Hemoglobin 29.7 pg (28.0-34.0); Mean Corpuscular Volume 97.1 fL (81-99); Mean Platelet Volume 14.4 fL (7.4-10.4); Monocytes # 0.1 10^3/uL (0.2-0.9); Monocytes % 2.3 %; Neutrophils % 84.8 %; Nucleated Red Blood Cells # 0.1 /100WBC; Nucleated Red Blood Cells % 1.5 %; Platelet Count 53 10^3/cmm (130-400); Red Blood Count 2.79 10^6/uL (4.1-5.3); Red Cell Distribution Width 19.9 % (12.1-15.1); White Blood Count 4.7 10^3/uL (4.0-10.0)
[2020-03-16 04:41] LABS: Alanine Aminotransferase 34 U/L (0-33); Alkaline Phosphatase 107 IU/L (35-105); Anion Gap 8.5 (5-19); Aspartate Amino Transferase 38 U/L (0-32); Blood Urea Nitrogen 27 mg/dL (6-20); Carbon Dioxide 34 mmol/L (22-29); Chloride 107 mmol/L (98-107); Globulin 1.8 g/dL (1.3-4.6); Glomerular Filtration Rate 107.6 mL/min (90-130); Glucose 107 mg/dL (65-115); Magnesium 2.2 mg/dL (1.7-2.3); Osmolality Calculated 308 mOsm/kg (285-295); Potassium 3.5 mmol/L (3.5-5.1); Sodium 146 mmol/L (136-145); Total Bilirubin 1.3 mg/dL (0.15-1.2); Total Protein 4.8 g/dL (6.6-8.7)
--- NOTE | 2020-03-16 06:00 | XR_ITS ---
WS: [id number] XR chest 1V portable [id number] REASON FOR EXAM: Pneumonia FINDINGS: Compared to previous examination 03/13/2020, endotracheal tube and nasogastric tube remain in positio n. Central lung opacities show moderate resolution. No new findings are noted. XR/XR chest 1V portable [id number] IMPRESSION: Resolving central lung opacities.
[2020-03-16] MEDS: levofloxacin-dextrose 5 % 750 MG/150 ML PREMIX 100 MG IV (06:35)
[2020-03-16] MEDS: dexamethasone 4 mg/mL INJ 6 MG IVP (06:35)
--- NOTE | 2020-03-16 07:15 | USCV_ITS ---
SchaeferTherese Age: 44 Gender: F : 1975 Exam Date: 03/16/2020 07:43 Ordering Phys: Modesto Nolan MD Technologist: Exam Location: [facility] [place]_ Indication: eval for EF and endocarditis BP: 98 / 61 HR: 92 Rhythm: Sinus Technical Quality: Adequate MEASUREMENTS (Male / Female) Normal Values 2D ECHO LVOT Diameter 2.0 cm LV Ejection Fraction MOD 2C 54.9 % LV Ejection Fraction 2C AL 56.3 % LA Diameter 3.9 cm LA Width 3.3 cm LA Height 3.8 cm RA Width 2.7 cm RA Height 4.6 cm Aorta at Sinotubular Diameter 2.7 cm M-MODE LV Diastolic Diameter MM 5.0 cm 4.2 - 5.9 / 3.9 - 5.3 cm LV Systolic Diameter MM 2.9 cm LV Ejection Fraction MM Teich 72.4 % IVS Diastolic Thickness MM 1.6 cm 0.6 - 1.0 / 0.6 - 0.9 cm IVS Systolic Thickness MM 1.6 cm LVPW Diastolic Thickness MM 1.3 cm 0.6 - 1.0 / 0.6 - 0.9 cm LVPW Systolic Thickness MM 1.6 cm RV Diastolic Diameter MM 1.2 cm Aortic Annulus Diameter 3.4 cm LA Ao Ratio MM 1.3 MV E Point Septal Separation 0.5 cm FINDINGS Left Ventricle Normal left ventricular cavity size. Normal left ventricular systolic function. Left ventricular ejection fraction is estimated at 65 %. No regional wall motion abnormalities. Right Ventricle Normal right ventricular size and systolic function. Right Atrium Right atrium not well visualized. Left Atrium Mildly increased left atrial size. Mitral Valve Mildly thickened mitral valve. Trace mitral valve regurgitation. Aortic Valve Structurally normal trileaflet aortic valve. No aortic valve stenosis. No aortic valve regurgitation. Tricuspid Valve Structurally normal tricuspid valve. Pulmonic Valve Structurally normal pulmonic valve. Pericardium No pericardial effusion. Aorta Normal size aortic root and proximal ascending aorta. CONCLUSIONS 1. This is a limited echocardiogram. 2. Normal left ventricle cavity size and systolic function. Left ventricular ejection fraction is estimated at 65 %. No regional wall motion abnormalities. 3. Normal right ventricular size and systolic function. 4. When compared to previous echocardiogram dated 05/03/2019, there may not have been any significant change. Angie Crook MD (Electronically Signed) Final Date: 16 March 2020 15:04 S
[2020-03-16 07:38] LABS: Glucose Point of Care 112 mg/dL (70-110)
[2020-03-16] MEDS: budesonide 0.5 mg/2 mL Neb INHALATION ×2 (08:09→20:35)
--- NOTE | 2020-03-16 08:32 | P.PN_ITS ---
Subjective Subjective: Interval history: Patient is intubated and sedated with propofol and fentanyl. Has loose bowel movements. Her oxygen requirement worsened and this morning she is on FiO2 80% with PEEP 10 oxygenating in low to mid 90s. This morning we have tried bringing down to 70% and she appears to be in the low 90s. Her catheter tip is growing Pseudomonas aeruginosa which is resistant to Primaxin but susceptible to Levaquin. Her CBC has not changed much. Hemoglobin and platelets are the same. Medications: Reviewed: Yes Vitals/I&O/Wt Last Vital Signs Temp 99.3 F 03/16/20 01:00 Pulse 105 H 03/16/20 08:16 Resp 21 H 03/16/20 08:16 BP 101/64 03/16/20 06:00 Pulse Ox 93 03/16/20 08:16 03/15/20 03/16/20 03/16/20 22:59 06:59 14:59 Intake Total 535.375 / 1245.500 640 / 1885.500 99.83 / 99.83 Output Total 700 / 700 325 / 1025 Balance -164.625 / 545.500 315 / 860.500 99.83 / 99.83 Weight last 48 hrs Weight 80.195 kg Weight 80.195 kg Physical Exam Const: COMMON NORMALS: no acute distress Resp: OTHER: Intubated and sedated with very minimal bibasilar Rales. Cardio: COMMON NORMALS: regular rate, regular rhythm and S2 normal heart sound present RATE: regular rate RHYTHM: regular rhythm HEART SOUNDS: S2 normal heart sound present OTHER: Trace lower extremity edema GI: COMMON NORMALS: Normal to inspection, nondistended, normoactive bowel sounds present, Soft to palpation and non-tender PALPATION: Yes Soft to palpation Neuro: COMMON NORMALS: no focal motor deficits Urinary Catheter Management^: Alcantara: Cath Placed During This Visit: yes Reason for Continuing Indwelling Catheter: Accurate Measurement of Urinary Output in Critically Ill Patients Urinary Catheter Date of Insertion: 02/27/20 Urinary Catheter Time of Insertion: 01:30 Data : 03/16/20 03:30 03/16/20 03:30 Micro: Microbiology 03/10/20 15:30 Blood Culture - Final Blood NO GROWTH AFTER 5 DAYS 03/10/20 14:45 Blood Culture - Final Blood NO GROWTH AFTER 5 DAYS 03/11/20 14:30 Catheter Tip Culture - Final Central Line Pseudomonas aeruginosa A&P Assessment and plan (1) Acute hypoxemic respiratory failure due to COVID-19: Worsened hypoxia today, requiring 100% FiO2 support on BiPAP, IPAP 10. Interim ventilator dyssynchrony. Given 1 dose of Ativan. Persistent edema, bilateral crackles. She is receiving 60 mg IV Lasix. TPN held. Discussed with her mother. Goals of care CODE STATUS updated. Discussed with pulmonology. If does not improve may need to proceed to intubation which in itself may be rather risky, but may be her only option should she not improve or decline further. Decadron 6mg every 24 hours. Empiric antibiotic. Diflucan. Will check w pharmacy if we have caspofungin. Repeat blood culture, fungal culture. Urine culture. Once able to, remove CVC, send tip for culture. At the moment very poor peripheral access. Status: Acute (2) Septic shock: As above. Severe COVID-19. Empiric antibiotics for possible superimposed bacterial pulmonary infection. Candidal UTI. Additional assessment by CT abdomen pelvis due to abdominal pain shows improving colitis. Status: Acute (3) Thrombocytopenia: Will repeat LDH. Haptoglobin. Will ask hematology for additional landon pheral smear review. Responded to PLT transfusion. Prophylactic Lovenox. Continue treatment of sepsis. Peripheral smear without schistocytes, however, with some noted dysmorphic metamyelocytes and myelocytes. Suspect likely secondary to infection. Possibly folic acid deficiency. As recommended by pathology flow cytometry is ordered to exclude myeloid disorder. HIT antibody negative. Suspected underlying liver fibrosis or possibly cirrhosis. No splenomegaly. Discussed with her mother. Status: Acute (4) Acute respiratory distress syndrome (ARDS) due to 2019 novel coronavirus: As above. Status: Acute (5) Anemia: Responded to RBC transfusion. Repeat tests for possible hemolysis. Repeat peripheral smear. D/w pulmonology additional DD. Does not appear typical for [facility]. Will request Jahaira-2R. Checking vitamin K level. Copper level. Normal B12. Folic acid deficiency. Folic acid added to TPN. Would benefit from folic acid replacement once able to administer enteric feeds. Status: Acute (6) PAT (acute kidney injury): Improved. Status: Acute (7) Hepatic encephalopathy: Ammonia is better. Suspected urea cycle disorder related to bariatric surgery. Lactulose enemas as tolerating. Given quite severe swings in oxygenation previously, with reported desaturation very rapidly when at times she would pull off BiPAP, despite almost immediate replacement anoxic brain injury is possible. Difficult to tell at this time due to still ongoing acute processes. She is not able to be assessed by MRI. This may need to be considered if there is no improvement in mental status despite improvement in other areas. Status: Acute (8) Protein-calorie malnutrition: TPN Status: Acute Qualifiers: Protein-calorie malnutrition severity: unspecified severity Qualified Code(s): E46 - Unspecified protein-calorie malnutrition (9) Hypernatremia: Better. Status: Acute (10) Metabolic acidosis: Status: Acute (11) Hypoglycemia: Monitor while holding tpn. Status: Acute (12) DIC (disseminated intravascular coagulation): Appears stabilized. Status: Acute (13) Opioid dependence: Status: Acute Qualifiers: Substance use status: uncomplicated Qualified Code(s): F11.20 - Opioid dependence, uncomplicated (14) Gastroparesis: Poor po intake resulting in malnutrition, NPO for now, high risk for aspiration Hx partial gastric resection. Status: Acute (15) Hypokalemia: Additional replacement. Status: Acute Additional A&P Information Recent echo EF 60%, no RWMA, gr 1 diastolic dysfunction from 04/2019 Hypocalcemia: Resolved Transmainitis, LFTs elevated but improved over early Feb. This could be related to cholestasis. History of partial gastrectomy: Would benefit from vitamin D supplementation. Check vitamin A, E, K, copper. PLAN: Continue Levaquin and the rest of the treatment. Will request repeat blood cultures today to make sure the source is controlled and transthoracic echocardiogram. Adjust oxygen as needed and hopefully her oxygen requirement improves to the point where we can extubate. No evidence of black stool in rectal tube. Her stool is dark green and liquid. I am not sure caspofungin is currently needed but will continue until tomorrow to have at least 7 days of treatment. Her blood cultures remain negative. Attestations Medical Necessity Statement*: Patient with respiratory failure requires close ICU monitoring and treatment including mechanical ventilation. 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 Crushing Machine Operator for [facility] Diagnoses Acute hypoxemic respiratory failure due to COVID-19 U07.1; J96.01 Septic shock A41.9; R65.21 Thrombocytopenia D69.6 Acute respiratory distress syndrome (ARDS) due to 2019 novel coronavirus U07.1; J80 Anemia D64.9 PAT (acute kidney injury) N17.9 Hepatic encephalopathy K72.90 Protein-calorie malnutrition E46 Protein-calorie malnutrition severity: unspecified severity Hypernatremia E87.0 Metabolic acidosis E87.2 Hypoglycemia E16.2 DIC (disseminated intravascular coagulation) D65 Opioid dependence F11.20 Substance use status: uncomplicated Gastroparesis K31.84 Hypokalemia E87.6
[2020-03-16] MEDS: artificial tears Op Soln 15 mL Btl 1 DROP EYE-BOTH (09:14)
[2020-03-16] MEDS: famotidine 20 mg/2 mL INJ IVP ×2 (09:15→19:54)
[2020-03-16] MEDS: hydroCHLOROthiazide 25 mg Tablet 50 MG PO (09:15)
[2020-03-16] MEDS: citalopram 20 mg Tablet PO (09:15)
[2020-03-16] MEDS: lanolin oint 7 gm 1 APPLIC TOPICAL (09:15)
[2020-03-16] MEDS: metoprolol tartrate 25 mg Tablet PO ×2 (09:15→17:08)
[2020-03-16 11:58] LABS: Glucose Point of Care 140 mg/dL (70-110)
--- NOTE | 2020-03-16 12:43 | PC.OT ---
OT note: Pt on vent, hold at this time.
[2020-03-16 14:15] LABS: Glucose Point of Care 171 mg/dL (70-110)
[2020-03-16 16:52] LABS: Glucose Point of Care 154 mg/dL (70-110)
--- NOTE | 2020-03-16 17:21 | PC.RESP ---
Did not attempt to wean to extubate pt due to high fio2
[2020-03-16 19:14] LABS: Glucose Point of Care 102 mg/dL (70-110)
--- NOTE | 2020-03-16 21:03 | PC.NURSE ---
Patient resting in bed with eyes closed and intubated. Patient responds to verbal commands. V/S all WNL. No s/s of distress. Continue care.
[2020-03-16 23:52] LABS: Glucose Point of Care 104 mg/dL (70-110)
[2020-03-17] VITALS (42 sets, daily range): BP systolic 86–126; BP diastolic 53–80; PULSE 75–111; RESP 17–24; TEMP 36.6–37.8; O2SAT 85–97
--- NOTE | 2020-03-17 00:13 | PC.NURSE ---
Flexiseal from rectal tube emptied and 1000 mL's of stool out, This nurse irrigated with 180mL's of water.
[2020-03-17] MEDS: propofol 1,000 MG/100 ML INJ 20.1 MG IV (00:38)
[2020-03-17] MEDS: ipratropium-albuterol 3 mL Neb INHALATION ×5 (04:01→19:27)
[2020-03-17 04:08] LABS: Basophils % 0.2 %; Eosinophils # 0.1 10^3/uL (0.0-0.8); Eosinophils % 2.6 %; Hematocrit 27.1 % (37.0-47.0); Hemoglobin 8.3 g/dL (11.5-15.3); Lymphocytes # 0.8 10^3/uL (0.8-4.8); Lymphocytes % 15.2 %; Mean Corpuscular HGB Conc 30.6 g/dL (30.0-36.0); Mean Corpuscular Hemoglobin 30.3 pg (28.0-34.0); Mean Corpuscular Volume 98.9 fL (81-99); Mean Platelet Volume 14.2 fL (7.4-10.4); Monocytes # 0.1 10^3/uL (0.2-0.9); Monocytes % 2.6 %; Neutrophils # 4.17 10^3/uL (1.8-7.7); Neutrophils % 78.5 %; Nucleated Red Blood Cells # 0.1 /100WBC; Nucleated Red Blood Cells % 1.9 %; Platelet Count 52 10^3/cmm (130-400); Red Blood Count 2.74 10^6/uL (4.1-5.3); Red Cell Distribution Width 20.1 % (12.1-15.1); White Blood Count 5.3 10^3/uL (4.0-10.0)
[2020-03-17 04:15] LABS: Glucose Point of Care 92 mg/dL (70-110)
[2020-03-17 04:33] LABS: Alanine Aminotransferase 34 U/L (0-33); Albumin Level 2.7 g/dL (3.5-5.2); Alkaline Phosphatase 119 IU/L (35-105); Anion Gap 11.8 (5-19); Aspartate Amino Transferase 37 U/L (0-32); Blood Urea Nitrogen 23 mg/dL (6-20); Calcium 8.6 mg/dL (8.5-10.5); Carbon Dioxide 32 mmol/L (22-29); Chloride 103 mmol/L (98-107); Glomerular Filtration Rate 132.8 mL/min (90-130); Glucose 88 mg/dL (65-115); Osmolality Calculated 299 mOsm/kg (285-295); Potassium 3.8 mmol/L (3.5-5.1); Sodium 143 mmol/L (136-145); Total Bilirubin 1.1 mg/dL (0.15-1.2); Total Protein 4.7 g/dL (6.6-8.7)
[2020-03-17] MEDS: propofol 1,000 MG/100 ML INJ 22.6 MG IV (05:02)
[2020-03-17 05:25] LABS: Slide Review Slide Review Perform
--- NOTE | 2020-03-17 05:27 | PC.NURSE ---
Uneventful shift: Patient rested quietly throughout the night. Patient would wake up when repositioned or verbally stimulated. Alcantara intact and draining appropriately, as well as rectal tube. No s/s of distress or pain. Continue care.
[2020-03-17] MEDS: dexamethasone 4 mg/mL INJ 6 MG IVP (06:16)
[2020-03-17] MEDS: levofloxacin-dextrose 5 % 750 MG/150 ML PREMIX 100 MG IV (06:16)
[2020-03-17 07:56] LABS: Glucose Point of Care 124 mg/dL (70-110)
[2020-03-17] MEDS: famotidine 20 mg/2 mL INJ IVP ×2 (08:53→20:08)
[2020-03-17] MEDS: hydroCHLOROthiazide 25 mg Tablet 50 MG PO (08:53)
[2020-03-17] MEDS: artificial tears Op Soln 15 mL Btl 1 DROP EYE-BOTH (08:54)
[2020-03-17] MEDS: lanolin oint 7 gm 1 APPLIC TOPICAL (08:54)
[2020-03-17] MEDS: propofol 1,000 MG/100 ML INJ 25.1 MG IV ×4 (08:54→21:22)
[2020-03-17] MEDS: metoprolol tartrate 25 mg Tablet PO ×2 (08:54→16:45)
[2020-03-17] MEDS: citalopram 20 mg Tablet PO (08:54)
[2020-03-17] MEDS: acetaminophen 325 mg Tablet 650 MG PO (08:55)
[2020-03-17] MEDS: budesonide 0.5 mg/2 mL Neb INHALATION ×2 (09:00→19:27)
--- NOTE | 2020-03-17 11:34 | PM.PN ---
Subjective Subjective: Interval history: Patient is intubated and sedated. She denied any complaints this morning as per RN. She was more sedated and was not really able to tell me anything during my evaluation. Continues to have liquid stool. Her oxygen was brought down to 70% FiO2 with PEEP of 10 and patient saturates in the mid 90s. Her hemoglobin and platelets appear to be stable. Medications: Reviewed: Yes Vitals/I&O/Wt Last Vital Signs Temp 99.1 F 03/17/20 08:00 Pulse 83 03/17/20 11:04 Resp 20 H 03/17/20 11:04 BP 96/56 03/17/20 10:00 Pulse Ox 94 03/17/20 11:04 03/16/20 03/17/20 03/17/20 22:59 06:59 14:59 Intake Total 486.88 / 1701.485 464.192 / 2165.677 369.73 / 369.73 Output Total 850 / 850 1700 / 2550 Balance -363.12 / 851.485 -1235.808 / -384.323 369.73 / 369.73 Weight last 48 hrs Weight 82.185 kg Weight 80.195 kg Physical Exam Const: COMMON NORMALS: no acute distress Resp: OTHER: Intubated and sedated with very minimal bibasilar Rales. Cardio: COMMON NORMALS: regular rate, regular rhythm and S2 normal heart sound present RATE: regular rate RHYTHM: regular rhythm HEART SOUNDS: S2 normal heart sound present OTHER: No lower extremity edema GI: COMMON NORMALS: Normal to inspection, nondistended, normoactive bowel sounds present, Soft to palpation and non-tender PALPATION: Yes Soft to palpation OTHER: Epigastric area tenderness. Neuro: COMMON NORMALS: no focal motor deficits Urinary Catheter Management^: Alcantara: Cath Placed During This Visit: yes Reason for Continuing Indwelling Catheter: Accurate Measurement of Urinary Output in Critically Ill Patients Urinary Catheter Date of Insertion: 02/27/20 Urinary Catheter Time of Insertion: 01:30 Data : 03/17/20 03:00 03/17/20 03:00 Micro: Microbiology 03/16/20 11:40 Blood Culture - Preliminary Blood SPECIMEN COLLECTED 03/16/20 12:00 Blood Culture - Preliminary Blood SPECIMEN COLLECTED A&P Assessment and plan (1) Acute hypoxemic respiratory failure due to COVID-19: Worsened hypoxia today, requiring 100% FiO2 support on BiPAP, IPAP 10. Interim ventilator dyssynchrony. Given 1 dose of Ativan. Persistent edema, bilateral crackles. She is receiving 60 mg IV Lasix. TPN held. Discussed with her mother. Goals of care CODE STATUS updated. Discussed with pulmonology. If does not improve may need to proceed to intubation which in itself may be rather risky, but may be her only option should she not improve or decline further. Decadron 6mg every 24 hours. Empiric antibiotic. Diflucan. Will check w pharmacy if we have caspofungin. Repeat blood culture, fungal culture. Urine culture. Once able to, remove CVC, send tip for culture. At the moment very poor peripheral access. Status: Acute (2) Septic shock: As above. Severe COVID-19. Empiric antibiotics for possible superimposed bacterial pulmonary infection. Candidal UTI. Additional assessment by CT abdomen pelvis due to abdominal pain shows improving colitis. Status: Acute (3) Thrombocytopenia: Will repeat LDH. Haptoglobin. Will ask hematology for additional peripheral smear review. Responded to PLT transfusion. Prophylactic Lovenox. Continue treatment of sepsis. Peripheral smear without schistocytes, however, with some noted dysmorphic metamyelocytes and myelocytes. Suspect likely secondary to infection. Possibly folic acid deficiency. As recommended by pathology flow cytometry is ordered to exclude myeloid disorder. HIT antibody negative. Suspected underlying liver fibrosis or possibly cirrhosis. No splenomegaly. Discussed with her mother. Status: Acute (4) Acute respiratory distress syndrome (ARDS) due to 2019 novel coronavirus: As above. Status: Acute (5) Anemia: Responded to RBC transfusion. Repeat tests for possible hemolysis. Repeat peripheral smear. D/w pulmonology additional DD. Does not appear typical for [facility]. Will request Jahaira-2R. Checking vitamin K level. Copper level. Normal B12. Folic acid deficiency. Folic acid added to TPN. Would benefit from folic acid replacement once able to administer enteric feeds. Status: Acute (6) PAT (acute kidney injury): Improved. Status: Acute (7) Hepatic encephalopathy: Ammonia is better. Suspected urea cycle disorder related to bariatric surgery. Lactulose enemas as tolerating. Given quite severe swings in oxygenation previously, with reported desaturation very rapidly when at times she would pull off BiPAP, despite almost immediate replacement anoxic brain injury is possible. Difficult to tell at this time due to still ongoing acute processes. She is not able to be assessed by MRI. This may need to be considered if there is no improvement in mental status despite improvement in other areas. Status: Acute (8) Protein-calorie malnutrition: TPN Status: Acute Qualifiers: Protein-calorie malnutrition severity: unspecified severity Qualified Code(s): E46 - Unspecified protein-calorie malnutrition (9) Hypernatremia: Better. Status: Acute (10) Metabolic acidosis: Status: Acute (11) Hypoglycemia: Monitor while holding tpn. Status: Acute (12) DIC (disseminated intravascular coagulation): Appears stabilized. Status: Acute (13) Opioid dependence: Status: Acute Qualifiers: Substance use status: uncomplicated Qualified Code(s): F11.20 - Opioid dependence, uncomplicated (14) Gastroparesis: Poor po intake resulting in malnutrition, NPO for now, high risk for aspiration Hx partial gastric resection. Status: Acute (15) Hypokalemia: Additional replacement. Status: Acute Additional A&P Information Recent echo EF 60%, no RWMA, gr 1 diastolic dysfunction from 04/2019 Hypocalcemia: Resolved Transmainitis, LFTs elevated but improved over early Feb. This could be related to cholestasis. History of partial gastrectomy: Would benefit from vitamin D supplementation. Check vitamin A, E, K, copper. PLAN: Will discontinue caspofungin and continue Levaquin. Recheck stool again for C. difficile. Continue weaning off oxygen Monitor CBC. Clinically patient appears to be improving although recovery is quite slow. Attestations Medical Necessity Statement*: Patient with respiratory failure requires close ICU monitoring and treatment. 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 Nutrition Services Associate for [facility] Diagnoses Acute hypoxemic respiratory failure due to COVID-19 U07.1; J96.01 Septic shock A41.9; R65.21 Thrombocytopenia D69.6 Acute respiratory distress syndrome (ARDS) due to 2019 novel coronavirus U07.1; J80 Anemia D64.9 PAT (acute kidney injury) N17.9 Hepatic encephalopathy K72.90 Protein-calorie malnutrition E46 Protein-calorie malnutrition severity: unspecified severity Hypernatremia E87.0 Metabolic acidosis E87.2 Hypoglycemia E16.2 DIC (disseminated intravascular coagulation) D65 Opioid dependence F11.20 Substance use status: uncomplicated Gastroparesis K31.84 Hypokalemia E87.6
[2020-03-17 11:41] LABS: Glucose Point of Care 194 mg/dL (70-110)
--- NOTE | 2020-03-17 14:53 | PC.OT ---
OT note: Discussed with nursing and through chart review noted pt intubated and sedated. Will hold at this time.
--- NOTE | 2020-03-17 15:15 | PC.PT ---
Patient is to be discharged from physical therapy at this time. Will await new orders when patient is appropriate for therapy.
[2020-03-17 16:26] LABS: Glucose Point of Care 121 mg/dL (70-110)
--- NOTE | 2020-03-17 19:00 | PC.NURSE ---
Report received, care assumed. Monitor alarms, plan of care et previous orders reviewed. Fentanyl et propofol gtts infusing et titrating to effect. Jevitity 1.2 carie tube feeds infusing through an OGT, placement verified per air bolus et x-ray. Patient orally intubated with an 8.0 ETT secured 22 cm at the lip, see RT flow sheet for vent settings. Left basilic vein double lumen PICC line, central placement verified per x-ray. Abdomen is round, soft, appears non-tenders with positive bowel sounds. Bilateral soft wrist restraints. Alcantara catheter to dependent drainage. Flexii Seal rectal tube present. Bilateral lower extremity SCDs. Please see physical assessment et vital sign flow sheet for details.
[2020-03-17 19:40] LABS: Glucose Point of Care 108 mg/dL (70-110)
--- NOTE | 2020-03-17 22:00 | PC.NURSE ---
Rhythm strip printed et posted in chart.
[2020-03-18] VITALS (59 sets, daily range): BP systolic 90–136; BP diastolic 52–91; PULSE 83–112; RESP 13–27; TEMP 37.2–37.8; O2SAT 89–95
[2020-03-18] MEDS: propofol 1,000 MG/100 ML INJ 25.1 MG IV ×7 (00:16→23:45)
[2020-03-18 00:23] LABS: Glucose Point of Care 94 mg/dL (70-110)
[2020-03-18 04:17] LABS: Glucose Point of Care 95 mg/dL (70-110)
[2020-03-18 05:34] LABS: Basophils % 0.5 %; Eosinophils # 0.3 10^3/uL (0.0-0.8); Eosinophils % 4.5 %; Hematocrit 26.8 % (37.0-47.0); Hemoglobin 8.2 g/dL (11.5-15.3); Lymphocytes # 1.3 10^3/uL (0.8-4.8); Lymphocytes % 18.8 %; Mean Corpuscular HGB Conc 30.6 g/dL (30.0-36.0); Mean Corpuscular Hemoglobin 30.4 pg (28.0-34.0); Mean Corpuscular Volume 99.3 fL (81-99); Mean Platelet Volume 13.9 fL (7.4-10.4); Monocytes # 0.1 10^3/uL (0.2-0.9); Monocytes % 2.1 %; Neutrophils # 4.85 10^3/uL (1.8-7.7); Nucleated Red Blood Cells # 0.1 /100WBC; Nucleated Red Blood Cells % 1.2 %; Platelet Count 53 10^3/cmm (130-400); Red Cell Distribution Width 20.2 % (12.1-15.1); White Blood Count 6.6 10^3/uL (4.0-10.0)
[2020-03-18 05:46] LABS: Blood Urea Nitrogen 22 mg/dL (6-20); Calcium 8.6 mg/dL (8.5-10.5); Carbon Dioxide 32 mmol/L (22-29); Chloride 103 mmol/L (98-107); Glomerular Filtration Rate 132.8 mL/min (90-130); Glucose 88 mg/dL (65-115); Osmolality Calculated 299 mOsm/kg (285-295); Phosphorus 4.8 mg/dL (2.5-4.5); Sodium 143 mmol/L (136-145)
[2020-03-18 05:52] LABS: Anion Gap 12.1 (5-19); Potassium 4.1 mmol/L (3.5-5.1)
[2020-03-18 06:20] LABS: Slide Review Slide Review Perform
[2020-03-18] MEDS: dexamethasone 4 mg/mL INJ 6 MG IVP (06:25)
[2020-03-18] MEDS: levofloxacin-dextrose 5 % 750 MG/150 ML PREMIX 100 MG IV (06:25)
[2020-03-18 07:45] LABS: Glucose Point of Care 119 mg/dL (70-110)
[2020-03-18] MEDS: ipratropium-albuterol 3 mL Neb INHALATION ×4 (07:45→11:24)
[2020-03-18] MEDS: budesonide 0.5 mg/2 mL Neb INHALATION (07:46)
[2020-03-18] MEDS: lanolin oint 7 gm 1 APPLIC TOPICAL ×2 (07:51→19:57)
[2020-03-18] MEDS: hydroCHLOROthiazide 25 mg Tablet 50 MG PO ×3 (07:51→17:08)
[2020-03-18] MEDS: artificial tears Op Soln 15 mL Btl 1 DROP EYE-BOTH ×2 (07:51→19:55)
[2020-03-18] MEDS: citalopram 20 mg Tablet PO (07:51)
[2020-03-18] MEDS: famotidine 20 mg/2 mL INJ IVP ×2 (07:51→19:55)
[2020-03-18] MEDS: metoprolol tartrate 25 mg Tablet PO ×2 (07:52→17:08)
--- NOTE | 2020-03-18 10:27 | P.PN_ITS ---
Subjective Subjective: Interval history: Patient is intubated and sedated. She does not appear in any distress. Denies chest pain. Follows commands and moves all of her extremities. She is very edematous this morning. She requires 70% FiO2 this morning with PEEP 10 saturating in low 90s. Her hemoglobin and platelets appear stable. I was told that C. difficile test was sent but report is currently pending. Medications: Reviewed: Yes Vitals/I&O/Wt Last Vital Signs Temp 99.6 F 03/18/20 08:00 Pulse 94 03/18/20 09:30 Resp 19 H 03/18/20 09:52 BP 100/70 03/18/20 09:30 Pulse Ox 92 03/18/20 09:30 03/17/20 03/18/20 03/18/20 22:59 06:59 14:59 Intake Total 734 / 8424.509 5258.845 / 2782.045 273.707 / 273.707 Output Total 650 / 650 750 / 1400 Balance 84 / 973.200 408.845 / 1382.045 273.707 / 273.707 Weight last 48 hrs Weight 78.109 kg Weight 82.185 kg Physical Exam Const: COMMON NORMALS: no acute distress Resp: OTHER: Coarse breath sounds throughout. Cardio: COMMON NORMALS: regular rate, regular rhythm and S2 normal heart sound present RATE: regular rate RHYTHM: regular rhythm HEART SOUNDS: S2 normal heart sound present OTHER: 2+ lower extremity edema GI: COMMON NORMALS: Normal to inspection, nondistended, normoactive bowel sounds present, Soft to palpation and non-tender PALPATION: Yes Soft to pal pation OTHER: Epigastric area tenderness. Neuro: COMMON NORMALS: no focal motor deficits Urinary Catheter Management^: Alcantara: Cath Placed During This Visit: yes Reason for Continuing Indwelling Catheter: Accurate Measurement of Urinary Output in Critically Ill Patients Urinary Catheter Date of Insertion: 02/27/20 Urinary Catheter Time of Insertion: 01:30 Data : 03/18/20 04:00 03/18/20 04:00 Micro: Microbiology 03/16/20 11:40 Blood Culture - Preliminary Blood NEGATIVE TO DATE 03/16/20 12:00 Blood Culture - Preliminary Blood NEGATIVE TO DATE A&P Assessment and plan (1) Acute hypoxemic respiratory failure due to COVID-19: Worsened hypoxia today, requiring 100% FiO2 support on BiPAP, IPAP 10. Interim ventilator dyssynchrony. Given 1 dose of Ativan. Persistent edema, bilateral crackles. She is receiving 60 mg IV Lasix. TPN held. Discussed with her mother. Goals of care CODE STATUS updated. Discussed with pulmonology. If does not improve may need to proceed to intubation which in itself may be rather risky, but may be her only option should she not improve or decline further. Decadron 6mg every 24 hours. Empiric antibiotic. Diflucan. Will check w pharmacy if we have caspofungin. Repeat blood culture, fungal culture. Urine culture. Once able to, remove CVC, send tip for culture. At the moment very poor peripheral access. Status: Acute (2) Septic shock: As above. Severe COVID-19. Empiric antibiotics for possible superimposed bacterial pulmonary infection. Candidal UTI. Additional assessment by CT abdomen pelvis due to abdominal pain shows improving colitis. Status: Acute (3) Thrombocytopenia: Will repeat LDH. Haptoglobin. Will ask hematology for additional peripheral smear review. Responded to PLT transfusion. Prophylactic Lovenox. Continue treatment of sepsis. Peripheral smear without schistocytes, however, with some noted dysmorphic metamyelocytes and myelocytes. Suspect likely secondary to infection. Possibly folic acid deficiency. As recommended by pathology flow cytometry is ordered to exclude myeloid disorder. HIT antibody negative. Suspected underlying liver fibrosis or possibly cirrhosis. No splenomegaly. Discussed with her mother. Status: Acute (4) Acute respiratory distress syndrome (ARDS) due to 2019 novel coronavirus: As above. Status: Acute (5) Anemia: Responded to RBC transfusion. Repeat tests for possible hemolysis. Repeat peripheral smear. D/w pulmonology additional DD. Does not appear typical for [facility]. Will request Jahaira-2R. Checking vitamin K level. Copper level. Normal B12. Folic acid deficiency. Folic acid added to TPN. Would benefit from folic acid replacement once able to administer enteric feeds. Status: Acute (6) PAT (acute kidney injury): Improved. Status: Acute (7) Hepatic encephalopathy: Ammonia is better. Suspected urea cycle disorder related to bariatric surgery. Lactulose enemas as tolerating. Given quite severe swings in oxygenation previously, with reported desaturation very rapidly when at times she would pull off BiPAP, despite almost immediate replacement anoxic brain injury is possible. Difficult to tell at this time due to still ongoing acute processes. She is not able to be assessed by MRI. This may need to be considered if there is no improvement in mental status despite improvement in other areas. Status: Acute (8) Protein-calorie malnutrition: TPN Status: Acute Qualifiers: Protein-calorie malnutrition severity: unspecified severity Qualified Code(s): E46 - Unspecified protein-calorie malnutrition (9) Hypernatremia: Better. Status: Acute (10) Metabolic acidosis: Status: Acute (11) Hypoglycemia: Monitor while holding tpn. Status: Acute (12) DIC (disseminated intravascular coagulation): Appears stabilized. Status: Acute (13) Opioid dependence: Status: Acute Qualifiers: Substance use status: uncomplicated Qualified Code(s): F11.20 - Opioid dependence, uncomplicated (14) Gastroparesis: Poor po intake resulting in malnutrition, NPO for now, high risk for aspiration Hx partial gastric resection. Status: Acute (15) Hypokalemia: Additional replacement. Status: Acute Additional A&P Information Recent echo EF 60%, no RWMA, gr 1 diastolic dysfunction from 04/2019 Hypocalcemia: Resolved Transmainitis, LFTs elevated but improved over early Feb. This could be related to cholestasis. History of partial gastrectomy: Would benefit from vitamin D supplementation. Check vitamin A, E, K, copper. PLAN: Continue Levaquin. Discontinue dexamethasone Increase hydrochlorothiazide to twice daily and will give 1 dose of Lasix now. Continue weaning off oxygen and adjusting vent settings as needed. Awaiting C. difficile test. Attestations Medical Necessity Statement*: Patient with respiratory failure requires close ICU monitoring and treatment. 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 Special Effects Person for [facility] [place] Diagnoses Acute hypoxemic respiratory failure due to COVID-19 U07.1; J96.01 Septic shock A41.9; R65.21 Thrombocytopenia D69.6 Acute respiratory distress syndrome (ARDS) due to 2019 novel coronavirus U07.1; J80 Anemia D64.9 PAT (acute kidney injury) N17.9 Hepatic encephalopathy K72.90 Protein-calorie malnutrition E46 Protein-calorie malnutrition severity: unspecified severity Hypernatremia E87.0 Metabolic acidosis E87.2 Hypoglycemia E16.2 DIC (disseminated intravascular coagulation) D65 Opioid dependence F11.20 Substance use status: uncomplicated Gastroparesis K31.84 Hypokalemia E87.6
[2020-03-18] MEDS: FUROsemide 10 mg/mL SDV 4mL 40 MG IVP (10:53)
--- NOTE | 2020-03-18 11:42 | PC.OT ---
OT NOTE: DISCHARGE SKILLED OT SERVICES FOR OT PATIENT REMAINS INTUBATED AND SEDATED. WILL AWAIT NEW ORDERS WHEN THE PATIENT IS ABLE TO PARTICIPATE.
[2020-03-18 15:59] LABS: Glucose Point of Care 151 mg/dL (70-110)
[2020-03-18 16:08] LABS: Glucose Point of Care 99 mg/dL (70-110)
[2020-03-18 18:33] LABS: ABG PCO2 51.3 mmHg (35-45); ABG PH Result 7.43 (7.35-7.45); Alveolar-Arterial Oxygen Gradi 43.6 mmHg (5-10); Arterial Blood Gas Hematocrit 29.2 % (37-47); Base Excess ABG 8.1 mmol/L (-2.0-2.0); Blood Gas Allen Test Pos; Blood Gas Operator Identificat MONRO; Blood Gas Sample Site Radial, left; Blood Gas Sample Type Arterial; Blood Gas Tidal Volume 0.45; Carboxyhemoglobin 2.6 %THgb (0.4-20.1); HCO3 ABG 33.6 mmol/L (22-26); HGB O2 Sat 90.5 % (95-100); Ionized Calcium Level - ABG 1.2 mmol/L (1.1-1.4); Methemoglobin 0.9 % (0.4-1.5); Oxygen Device VENT; Oxygen Saturation ABG 93.8; PO2 ABG 67.1 mmHg (80.0-100.0); Potassium Level - ABG 4.2 mmol/L (3.5-5.0); Total Hemoglobin 9.5 g/dL (12-16)
[2020-03-18 19:48] LABS: Glucose Point of Care 105 mg/dL (70-110)
[2020-03-18 23:47] LABS: Glucose Point of Care 102 mg/dL (70-110)
[2020-03-19] VITALS (60 sets, daily range): BP systolic 87–141; BP diastolic 44–87; PULSE 90–132; RESP 12–20; TEMP 37.7–39; O2SAT 87–100; BMI 30.1
[2020-03-19 03:51] LABS: Glucose Point of Care 104 mg/dL (70-110)
[2020-03-19] MEDS: propofol 1,000 MG/100 ML INJ 25.1 MG IV ×2 (04:24→08:16)
[2020-03-19 04:29] LABS: Hematocrit 29.6 % (37.0-47.0); Hemoglobin 8.9 g/dL (11.5-15.3); Mean Corpuscular HGB Conc 30.1 g/dL (30.0-36.0); Mean Corpuscular Hemoglobin 29.6 pg (28.0-34.0); Mean Corpuscular Volume 98.3 fL (81-99); Mean Platelet Volume 13.2 fL (7.4-10.4); Platelet Count 60 10^3/cmm (130-400); Red Blood Count 3.01 10^6/uL (4.1-5.3); Red Cell Distribution Width 20.3 % (12.1-15.1); White Blood Count 7.3 10^3/uL (4.0-10.0)
[2020-03-19 04:57] LABS: Alanine Aminotransferase 33 U/L (0-33); Albumin Level 2.8 g/dL (3.5-5.2); Alkaline Phosphatase 121 IU/L (35-105); Anion Gap 11.9 (5-19); Aspartate Amino Transferase 30 U/L (0-32); Blood Urea Nitrogen 21 mg/dL (6-20); Calcium 8.7 mg/dL (8.5-10.5); Carbon Dioxide 32 mmol/L (22-29); Chloride 102 mmol/L (98-107); Globulin 2.4 g/dL (1.3-4.6); Glomerular Filtration Rate 132.8 mL/min (90-130); Glucose 96 mg/dL (65-115); Osmolality Calculated 297 mOsm/kg (285-295); Potassium 3.9 mmol/L (3.5-5.1); Sodium 142 mmol/L (136-145); Total Bilirubin 0.9 mg/dL (0.15-1.2); Total Protein 5.2 g/dL (6.6-8.7)
[2020-03-19 05:33] LABS: Slide Review Slide Review Perform
[2020-03-19 05:35] LABS: Absolute Eosinophils 0.7 10^3/cmm (0.0-0.7); Absolute Segmented Neutrophil 3.3 10/cmm (1.6-7.1); Band Neutrophils Absolute 1.3 10^3/cmm (0.0-1.2); Basophils Absolute 0.1 10^3/cmm (0.0-0.2); Eosinophils 10 %; Lymphocytes 24 %; Monocytes Absolute 0.1 10^3/cmm (0.1-0.6); Segmented Neutrophils 45 %; Total Cells Counted 100 (0-100)
[2020-03-19 05:36] LABS: Absolute Neutrophil 4.6 10^3/cmm (1.4-6.5); Platelet Estimate Decreased (Normal); Polychromasia 1+; Stomatocytes 1+
--- NOTE | 2020-03-19 07:11 | PC.NURSE ---
Shift Summary: Uneventful shift. Patient has rested comfortably throughout evening. Noted bilateral wheeping edema to arms. Increased secretions noted as well from beginning of shift overnight. Titration of sedation medication led patient to have increase in HR and noticeable anxiety. No big events overnight. Patient currently resting comfortably. 1400 u/o Propofol @50mcg Fent @100mcg
--- NOTE | 2020-03-19 08:22 | P.PN_ITS ---
Subjective Subjective: Interval history: Patient is intubated and sedated. Continues to have liquid stool. Less edematous today. Tolerated tube feeds well. Her FiO2 is down to 65% with PEEP 10. She is saturating in the low 90s. She had less yellowish colored ET tube secretions. She had 1400 urinary output since yesterday. Hemoglobin and platelets show improvement. Medications: Reviewed: Yes Vitals/I&O/Wt Last Vital Signs Temp 99.9 F H 03/19/20 00:00 Pulse 114 H 03/19/20 06:30 Resp 20 H 03/19/20 07:59 BP 125/76 03/19/20 06:30 Pulse Ox 91 03/19/20 06:30 03/18/20 03/19/20 03/19/20 22:59 06:59 14:59 Intake Total 483.709 / 1262.791 295.592 / 1558.383 184.386 / 184.386 Output Total 1300 / 2450 800 / 3250 Balance -816.291 / -1187.209 -504.408 / -1691.617 184.386 / 184.386 Weight last 48 hrs Weight 78.4 g Weight 78.109 kg Physical Exam Const: COMMON NORMALS: no acute distress and patient oriented x3 Resp: COMMON NORMALS: normal respiratory effort and clear to auscultation bilaterally AUSCULTATION: clear to auscultation bilaterally OTHER: Coarse breath sounds throughout. Cardio: COMMON NORMALS: regular rate, regular rhythm and S2 normal heart sound present RATE: regular rate RHYTHM: regular rhythm HEART SOUNDS: S2 normal heart sound present OTHER: No lower extremity edema GI: COMMON NORMALS: Normal to inspection, nondistended, normoactive bowel sounds present, Soft to palpation and non-tender PALPATION: Yes Soft to palpation OTHER: Mildly tender at epigastric area. Neuro: COMMON NORMALS: patient oriented x3 and no focal motor deficits Urinary Catheter Management^: Alcantara: Cath Placed During This Visit: yes Reason for Continuing Indwelling Catheter: Accurate Measurement of Urinary Output in Critically Ill Patients Urinary Catheter Date of Insertion: 02/27/20 Urinary Catheter Time of Insertion: 01:30 Data : 03/19/20 03:25 03/19/20 03:25 A&P Assessment and plan (1) Acute hypoxemic respiratory failure due to COVID-19: Worsened hypoxia today, requiring 100% FiO2 support on BiPAP, IPAP 10. Interim ventilator dyssynchrony. Given 1 dose of Ativan. Persistent edema, bilateral crackles. She is receiving 60 mg IV Lasix. TPN held. Discussed with her mother. Goals of care CODE STATUS updated. Discussed with pulmonology. If does not improve may need to proceed to intubation which in itself may be rather risky, but may be her only option should she not improve or decline further. Decadron 6mg every 24 hours. Empiric antibiotic. Diflucan. Will check w pharmacy if we have caspofungin. Repeat blood culture, fungal culture. Urine culture. Once able to, remove CVC, send tip for culture. At the moment very poor peripheral access. Status: Acute (2) Septic shock: As above. Severe COVID-19. Empiric antibiotics for possible superimposed bacterial pulmonary infection. Candidal UTI. Additional assessment by CT abdomen pelvis due to abdominal pain shows improving colitis. Status: Acute (3) Thrombocytopenia: Will repeat LDH. Haptoglobin. Will ask hematology for additional peripheral smear review. Responded to PLT transfusion. Prophylactic Lovenox. Continue treatment of sepsis. Peripheral smear without schistocytes, however, with some noted dysmorphic metamyelocytes and myelocytes. Suspect likely secondary to infection. Possibly folic acid deficiency. As recommended by pathology flow cytometry is ordered to exclude myeloid disorder. HIT antibody negative. Suspected underlying liver fibrosis or possibly cirrhosis. No splenomegaly. Discussed with her mother. Status: Acute (4) Acute respiratory distress syndrome (ARDS) due to 2019 novel coronavirus: As above. Status: Acute (5) Anemia: Responded to RBC transfusion. Repeat tests for possible hemolysis. Repeat peripheral smear. D/w pulmonology additional DD. Does not appear typical for [facility]. Will request Jahaira-2R. Checking vitamin K level. Copper level. Normal B12. Folic acid deficiency. Folic acid added to TPN. Would benefit from folic acid replacement once able to administer enteric feeds. Status: Acute (6) PAT (acute kidney injury): Improved. Status: Acute (7) Hepatic encephalopathy: Ammonia is better. Suspected urea cycle disorder related to bariatric surgery. Lactulose enemas as tolerating. Given quite severe swings in oxygenation previously, with reported desaturation very rapidly when at times she would pull off BiPAP, despite almost immediate replacement anoxic brain injury is possible. Difficult to tell at this time due to still ongoing acute processes. She is not able to be assessed by MRI. This may need to be considered if there is no improvement in mental status despite improvement in other areas. Status: Acute (8) Protein-calorie malnutrition: TPN Status: Acute Qualifiers: Protein-calorie malnutrition severity: unspecified severity Qualified Code(s): E46 - Unspecified protein-calorie malnutrition (9) Hypernatremia: Better. Status: Acute (10) Metabolic acidosis: Status: Acute (11) Hypoglycemia: Monitor while holding tpn. Status: Acute (12) DIC (disseminated intravascular coagulation): Appears stabilized. Status: Acute (13) Opioid dependence: Status: Acute Qualifiers: Substance use status: uncomplicated Qualified Code(s): F11.20 - Opioid dependence, uncomplicated (14) Gastroparesis: Poor po intake resulting in malnutrition, NPO for now, high risk for aspiration Hx partial gastric resection. Status: Acute (15) Hypokalemia: Additional replacement. Status: Acute Additional A&P Information Recent echo EF 60%, no RWMA, gr 1 diastolic dysfunction from 04/2019 Hypocalcemia: Resolved Transmainitis, LFTs elevated but improved over early Feb. This could be related to cholestasis. History of partial gastrectomy: Would benefit from vitamin D supplementation. Check vitamin A, E, K, copper. PLAN: Continue Levaquin. Patient appears to be responding well. She is improving but her recovery is very slow. We will proceed with daily weaning trials. We will have to keep rectal tube in as patient is at risk for skin breakdown. Will increase metoprolol to 50 mg twice daily for better heart rate control. We will again attempt to contact family and try to get the patient's home Dexilant medication for better GI protection. Attestations Medical Necessity Statement*: Patient with respiratory failure requires close ICU monitoring and treatment. 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 Director Of Software Engineering for [facility] Diagnoses Acute hypoxemic respiratory failure due to COVID-19 U07.1; J96.01 Septic shock A41.9; R65.21 Thrombocytopenia D69.6 Acute respiratory distress syndrome (ARDS) due to 2019 novel coronavirus U07.1; J80 Anemia D64.9 PAT (acute kidney injury) N17.9 Hepatic encephalopathy K72.90 Protein-calorie malnutrition E46 Protein-calorie malnutrition severity: unspecified severity Hypernatremia E87.0 Metabolic acidosis E87.2 Hypoglycemia E16.2 DIC (disseminated intravascular coagulation) D65 Opioid dependence F11.20 Substance use status: uncomplicated Gastroparesis K31.84 Hypokalemia E87.6
[2020-03-19 08:42] LABS: Glucose Point of Care 135 mg/dL (70-110)
[2020-03-19] MEDS: levofloxacin-dextrose 5 % 750 MG/150 ML PREMIX 100 MG IV (09:18)
[2020-03-19] MEDS: famotidine 20 mg/2 mL INJ IVP ×2 (09:18→19:34)
[2020-03-19] MEDS: citalopram 20 mg Tablet PO (09:19)
[2020-03-19] MEDS: hydroCHLOROthiazide 25 mg Tablet 50 MG PO ×2 (09:19→18:21)
[2020-03-19] MEDS: metoprolol tartrate 50 mg Tablet PO ×2 (09:19→18:20)
[2020-03-19] MEDS: propofol 1,000 MG/100 ML INJ 30.1 MG IV ×3 (12:01→19:33)
[2020-03-19 12:15] LABS: Glucose Point of Care 116 mg/dL (70-110)
[2020-03-19 14:49] LABS: ABG PCO2 50.7 mmHg (35-45); ABG PH Result 7.44 (7.35-7.45); Arterial Blood Gas Hematocrit 28.4 % (37-47); Base Excess ABG 8.8 mmol/L (-2.0-2.0); Blood Gas Allen Test Pos; Blood Gas Operator Identificat CAK; Blood Gas Sample Site Radial, left; Blood Gas Sample Type Arterial; HCO3 ABG 34.1 mmol/L (22-26); Oxygen Device VENT; PO2 ABG 53.2 mmHg (80.0-100.0)
[2020-03-19] MEDS: ipratropium-albuterol 3 mL Neb INHALATION ×3 (15:26→23:59)
[2020-03-19] MEDS: acetaminophen 325 mg Tablet 650 MG PO ×2 (15:28→20:28)
[2020-03-19 16:44] LABS: Glucose Point of Care 78 mg/dL (70-110)
[2020-03-19 19:12] LABS: Glucose Point of Care 99 mg/dL (70-110)
--- NOTE | 2020-03-19 21:11 | PC.NURSE ---
Patient temp registered @ 102.2 axillary when checked at 1915. MD communications media professor notified. No new orders were received. RN placed cold washcloths to underarms/neck/pubic area until next dose of APAP could be administered at 2029. Fan placed in patient's room.
[2020-03-19 23:47] LABS: Glucose Point of Care 82 mg/dL (70-110)
[2020-03-19] MEDS: propofol 1,000 MG/100 ML INJ 20.1 MG IV (23:47)
[2020-03-20] VITALS (60 sets, daily range): BP systolic 89–124; BP diastolic 44–68; PULSE 74–109; RESP 13–18; TEMP 37.5–38.2; O2SAT 86–100
[2020-03-20 03:44] LABS: Glucose Point of Care 87 mg/dL (70-110)
[2020-03-20 03:58] LABS: ABG PCO2 53.7 mmHg (35-45); Alveolar-Arterial Oxygen Gradi 48.4 mmHg (5-10); Arterial Blood Gas Hematocrit 31.7 % (37-47); Base Excess ABG 7.3 mmol/L (-2.0-2.0); Blood Gas Allen Test Pos; Blood Gas LPM 0.5 %; Blood Gas Operator Identificat HARKR; Blood Gas Sample Site Radial, right; Blood Gas Sample Type Arterial; Carboxyhemoglobin 3.4 %THgb (0.4-20.1); HCO3 ABG 33.3 mmol/L (22-26); Ionized Calcium Level - ABG 1.2 mmol/L (1.1-1.4); Methemoglobin 0.3 % (0.4-1.5); Oxygen Device VENT; Oxygen Saturation ABG 93.5; PO2 ABG 65.4 mmHg (80.0-100.0); Potassium Level - ABG 3.8 mmol/L (3.5-5.0); Total Hemoglobin 10.4 g/dL (12-16)
[2020-03-20] MEDS: propofol 1,000 MG/100 ML INJ 25.1 MG IV ×3 (04:07→12:46)
[2020-03-20] MEDS: ipratropium-albuterol 3 mL Neb INHALATION ×5 (04:42→20:23)
[2020-03-20 06:05] LABS: Hematocrit 25.7 % (37.0-47.0); Hemoglobin 7.6 g/dL (11.5-15.3); Mean Corpuscular HGB Conc 29.6 g/dL (30.0-36.0); Mean Corpuscular Hemoglobin 29.6 pg (28.0-34.0); Mean Platelet Volume 14.5 fL (7.4-10.4); Platelet Count 49 10^3/cmm (130-400); Red Blood Count 2.57 10^6/uL (4.1-5.3); Red Cell Distribution Width 19.9 % (12.1-15.1); White Blood Count 4.2 10^3/uL (4.0-10.0)
[2020-03-20] MEDS: levofloxacin-dextrose 5 % 750 MG/150 ML PREMIX 100 MG IV (06:17)
[2020-03-20 06:24] LABS: Alanine Aminotransferase 24 U/L (0-33); Albumin Level 2.2 g/dL (3.5-5.2); Alkaline Phosphatase 88 IU/L (35-105); Aspartate Amino Transferase 24 U/L (0-32); Blood Urea Nitrogen 18 mg/dL (6-20); Calcium 8.1 mg/dL (8.5-10.5); Carbon Dioxide 32 mmol/L (22-29); Chloride 102 mmol/L (98-107); Globulin 2.4 g/dL (1.3-4.6); Glomerular Filtration Rate 171.8 mL/min (90-130); Glucose 90 mg/dL (65-115); Osmolality Calculated 293 mOsm/kg (285-295); Sodium 141 mmol/L (136-145); Total Bilirubin 0.8 mg/dL (0.15-1.2); Total Protein 4.6 g/dL (6.6-8.7)
[2020-03-20 07:07] LABS: Slide Review Slide Review Perform
[2020-03-20 07:16] LABS: Absolute Eosinophils 0.1 10^3/cmm (0.0-0.7); Absolute Neutrophil 3.1 10^3/cmm (1.4-6.5); Absolute Segmented Neutrophil 2.1 10/cmm (1.6-7.1); Anisocytosis 2+; Eosinophils 4 %; Lymphocytes 17 %; Macrocytosis 1+; Monocytes Absolute 0.2 10^3/cmm (0.1-0.6); Platelet Estimate Decreased (Normal); Polychromasia 1+; Segmented Neutrophils 50 %; Total Cells Counted 100 (0-100)
[2020-03-20 07:27] LABS: Glucose Point of Care 112 mg/dL (70-110)
--- NOTE | 2020-03-20 07:30 | PC.NURSE ---
Shift Summary: Patient has had fluctuations in her overall temps overnight. Ice water lavage completed X2, with cool wash cloths applied appropriately. BP has fluctuated back and forth with MAP between 55-70's. Propofol/Fentanyl adjusted accordingly (see Mar flowsheet). MD An rounded this early AM and was at bedside with patient. Gave v/o for blood cultures X2 to be collected and sent to lab. Update given on overall patient status, and trending v/s throughout overnight shift. Lower extremities seem to be less edematous this AM. Bilateral arms/hands have increased edema/wheeping. Patient does not tolerate turns very well SPO2 dips into mid 80%, and requires time to return back to baseline. RT increased her FIO2 from 65% to 75% based on demand. Currently patient is resting comfortably. Propofol @ 50mcg Fentanyl @ 90mcg 550 u/o 150 stool through rectal tube. Report given to oncoming dayshift CLAUDIA.
--- NOTE | 2020-03-20 08:31 | PM.PN ---
Subjective Subjective: Interval history: Patient is intubated and sedated. Her oxygen requirement worsened. Her FiO2 was increased to 70% last night. She continues to have episodes of fever with 102.2 T-max yesterday evening. She follows commands. She continues to be edematous today but less than yesterday. Platelets further declined Medications: Reviewed: Yes Vitals/I&O/Wt Last Vital Signs Temp 99.9 F H 03/20/20 04:00 Pulse 87 03/20/20 08:25 Resp 15 03/20/20 08:25 BP 97/63 03/20/20 07:00 Pulse Ox 94 03/20/20 08:25 03/19/20 03/20/20 03/20/20 22:59 06:59 14:59 Intake Total 1024.403 / 2372.914 163.164 / 2536.078 100 / 100 Output Total 500 / 1300 600 / 1900 Balance 524.403 / 1072.914 -436.836 / 636.078 100 / 100 Weight last 48 hrs Weight 80.6 kg Weight 79.634 kg Weight 78.4 g Physical Exam Const: COMMON NORMALS: no acute distress and patient oriented x3 Resp: COMMON NORMALS: normal respiratory effort and clear to auscultation bilaterally AUSCULTATION: clear to auscultation bilaterally OTHER: Coarse breath sounds throughout. Cardio: COMMON NORMALS: regular rate, regular rhythm and S2 normal heart sound present RATE: regular rate RHYTHM: regular rhythm HEART SOUNDS: S2 normal heart sound present OTHER: No lower extremity edema GI: COMMON NORMALS: Normal to inspection, nondistended, normoactive bowel sounds present, Soft to palpation and non-tender PALPATION: Yes Soft to palpation OTHER: Mildly tender at epigastric area. Neuro: COMMON NORMALS: patient oriented x3 and no focal motor deficits Urinary Catheter Management^: Alcantara: Cath Placed During This Visit: yes Reason for Continuing Indwelling Catheter: Accurate Measurement of Urinary Output in Critically Ill Patients Urinary Catheter Date of Insertion: 02/27/20 Urinary Catheter Time of Insertion: 01:30 Data : 03/20/20 03:40 03/20/20 03:40 A&P Assessment and plan (1) Acute hypoxemic respiratory failure due to COVID-19: Worsened hypoxia today, requiring 100% FiO2 support on BiPAP, IPAP 10. Interim ventilator dyssynchrony. Given 1 dose of Ativan. Persistent edema, bilateral crackles. She is receiving 60 mg IV Lasix. TPN held. Discussed with her mother. Goals of care CODE STATUS updated. Discussed with pulmonology. If does not improve may need to proceed to intubation which in itself may be rather risky, but may be her only option should she not improve or decline further. Decadron 6mg every 24 hours. Empiric antibiotic. Diflucan. Will check w pharmacy if we have caspofungin. Repeat blood culture, fungal culture. Urine culture. Once able to, remove CVC, send tip for culture. At the moment very poor peripheral access. Status: Acute (2) Septic shock: As above. Severe COVID-19. Empiric antibiotics for possible superimposed bacterial pulmonary infection. Candidal UTI. Additional assessment by CT abdomen pelvis due to abdominal pain shows improving colitis. Status: Acute (3) Thrombocytopenia: Will repeat LDH. Haptoglobin. Will ask hematology for additional peripheral smear review. Responded to PLT transfusion. Prophylactic Lovenox. Continue treatment of sepsis. Peripheral smear without schistocytes, however, with some noted dysmorphic metamyelocytes and myelocytes. Suspect likely secondary to infection. Possibly folic acid deficiency. As recommended by pathology flow cytometry is ordered to exclude myeloid disorder. HIT antibody negative. Suspected underlying liver fibrosis or possibly cirrhosis. No splenomegaly. Discussed with her mother. Status: Acute (4) Acute respiratory distress syndrome (ARDS) due to 2019 novel coronavirus: As above. Status: Acute (5) Anemia: Responded to RBC transfusion. Repeat tests for possible hemolysis. Repeat peripheral smear. D/w pulmonology additional DD. Does not appear typical for [facility]. Will request Jahaira-2R. Checking vitamin K level. Copper level. Normal B12. Folic acid deficiency. Folic acid added to TPN. Would benefit from folic acid replacement once able to administer enteric feeds. Status: Acute (6) PAT (acute kidney injury): Improved. Status: Acute (7) Hepatic encephalopathy: Ammonia is better. Suspected urea cycle disorder related to bariatric surgery. Lactulose enemas as tolerating. Given quite severe swings in oxygenation previously, with reported desaturation very rapidly when at times she would pull off BiPAP, despite almost immediate replacement anoxic brain injury is possible. Difficult to tell at this time due to still ongoing acute processes. She is not able to be assessed by MRI. This may need to be considered if there is no improvement in mental status despite improvement in other areas. Status: Acute (8) Protein-calorie malnutrition: TPN Status: Acute Qualifiers: Protein-calorie malnutrition severity: unspecified severity Qualified Code(s): E46 - Unspecified protein-calorie malnutrition (9) Hypernatremia: Better. Status: Acute (10) Metabolic acidosis: Status: Acute (11) Hypoglycemia: Monitor while holding tpn. Status: Acute (12) DIC (disseminated intravascular coagulation): Appears stabilized. Status: Acute (13) Opioid dependence: Status: Acute Qualifiers: Substance use status: uncomplicated Qualified Code(s): F11.20 - Opioid dependence, uncomplicated (14) Gastroparesis: Poor po intake resulting in malnutrition, NPO for now, high risk for aspiration Hx partial gastric resection. Status: Acute (15) Hypokalemia: Additional replacement. Status: Acute Additional A&P Information Recent echo EF 60%, no RWMA, gr 1 diastolic dysfunction from 04/2019 Hypocalcemia: Resolved Transmainitis, LFTs elevated but improved over early Feb. This could be related to cholestasis. History of partial gastrectomy: Would benefit from vitamin D supplementation. Check vitamin A, E, K, copper. PLAN: Continue Levaquin and add Zosyn. Repeat blood cultures obtained this morning. Restart albumin to avoid third spacing. Repeat chest x-ray this morning Monitor CBC and platelets and check DIC profile in a.m. Consider repeating CT scan of the chest Check inflammatory markers in a.m. and repeat blood cultures 1 more time tomorrow morning. Attestations Medical Necessity Statement*: Patient is seriously ill with acute hypoxic respite failure due to COVID-19 pneumonia as well as Pseudomonas infection requires close ICU monitoring and treatment Time Spent in Patient Care: Greater than 35 minutes 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 Assistant Professor Of History for [facility] Fwd Diagnoses Acute hypoxemic respiratory failure due to COVID-19 U07.1; J96.01 Septic shock A41.9; R65.21 Thrombocytopenia D69.6 Acute respiratory distress syndrome (ARDS) due to 2019 novel coronavirus U07.1; J80 Anemia D64.9 PAT (acute kidney injury) N17.9 Hepatic encephalopathy K72.90 Protein-calorie malnutrition E46 Protein-calorie malnutrition severity: unspecified severity Hypernatremia E87.0 Metabolic acidosis E87.2 Hypoglycemia E16.2 DIC (disseminated intravascular coagulation) D65 Opioid dependence F11.20 Substance use status: uncomplicated Gastroparesis K31.84 Hypokalemia E87.6
[2020-03-20] MEDS: metoprolol tartrate 50 mg Tablet PO ×2 (08:39→17:22)
[2020-03-20] MEDS: citalopram 20 mg Tablet PO (08:39)
[2020-03-20] MEDS: famotidine 20 mg/2 mL INJ IVP ×2 (08:39→21:11)
[2020-03-20] MEDS: piperacillin-tazobactam 3.375 GM in sodium chloride 0.9% (plus) 50 ML IV ×2 (08:45→16:23)
--- NOTE | 2020-03-20 08:55 | XR_ITS ---
WS: [id number] XR chest 1V portable [id number] REASON FOR EXAM: Pneumonia, respiratory failure FINDINGS: The chest is unchanged compared to 03/16/2020, endotracheal tube and nasogastric tube remain in posit ion. Heart and mediastinum are within normal limits. Diffuse interstitial and alveolar infiltrative changes are seen in both lower lung mart with air br onchograms on the left. No pleural fluid. XR/XR chest 1V portable [id number] IMPRESSION: Unchanged abnormal chest as above.
[2020-03-20] MEDS: FUROsemide 10 mg/mL SDV 4mL 40 MG IVP (10:01)
[2020-03-20 11:29] LABS: Glucose Point of Care 105 mg/dL (70-110)
[2020-03-20] MEDS: propofol 1,000 MG/100 ML INJ 30.1 MG IV ×3 (16:24→22:30)
[2020-03-20 17:04] LABS: Glucose Point of Care 102 mg/dL (70-110)
[2020-03-20 19:58] LABS: Glucose Point of Care 104 mg/dL (70-110)
[2020-03-20] MEDS: acetaminophen 325 mg Tablet 650 MG PO (21:12)
[2020-03-21] VITALS (82 sets, daily range): BP systolic 67–114; BP diastolic 32–67; PULSE 90–111; RESP 12–18; TEMP 37.1–38.4; O2SAT 87–100
[2020-03-21 00:25] LABS: Glucose Point of Care 92 mg/dL (70-110)
[2020-03-21] MEDS: piperacillin-tazobactam 3.375 GM in sodium chloride 0.9% (plus) 50 ML IV ×3 (01:22→21:52)
[2020-03-21] MEDS: propofol 1,000 MG/100 ML INJ 30.1 MG IV ×7 (02:33→23:01)
[2020-03-21] MEDS: ipratropium-albuterol 3 mL Neb INHALATION ×6 (03:29→20:15)
[2020-03-21 04:20] LABS: Glucose Point of Care 117 mg/dL (70-110)
[2020-03-21 07:26] LABS: Glucose Point of Care 112 mg/dL (70-110)
[2020-03-21 07:33] LABS: Basophils % 0.3 %; Eosinophils # 0.5 10^3/uL (0.0-0.8); Hematocrit 22.6 % (37.0-47.0); Hemoglobin 6.7 g/dL (11.5-15.3); Lymphocytes # 0.5 10^3/uL (0.8-4.8); Lymphocytes % 15.1 %; Mean Corpuscular HGB Conc 29.6 g/dL (30.0-36.0); Mean Corpuscular Hemoglobin 29.5 pg (28.0-34.0); Mean Corpuscular Volume 99.6 fL (81-99); Mean Platelet Volume 13.7 fL (7.4-10.4); Monocytes # 0.1 10^3/uL (0.2-0.9); Monocytes % 3.4 %; Neutrophils % 64.6 %; Nucleated Red Blood Cells % 0 %; Platelet Count 40 10^3/cmm (130-400); Red Blood Count 2.27 10^6/uL (4.1-5.3); Red Cell Distribution Width 19.4 % (12.1-15.1); White Blood Count 3.3 10^3/uL (4.0-10.0)
[2020-03-21 07:51] LABS: Alanine Aminotransferase 17 U/L (0-33); Albumin Level 2.7 g/dL (3.5-5.2); Alkaline Phosphatase 69 IU/L (35-105); Anion Gap 12.5 (5-19); Aspartate Amino Transferase 18 U/L (0-32); Blood Urea Nitrogen 17 mg/dL (6-20); Calcium 8.3 mg/dL (8.5-10.5); Carbon Dioxide 32 mmol/L (22-29); Chloride 101 mmol/L (98-107); Globulin 2.2 g/dL (1.3-4.6); Glomerular Filtration Rate 132.8 mL/min (90-130); Glucose 91 mg/dL (65-115); Magnesium 1.6 mg/dL (1.7-2.3); Osmolality Calculated 295 mOsm/kg (285-295); Potassium 3.5 mmol/L (3.5-5.1); Sodium 142 mmol/L (136-145); Total Protein 4.9 g/dL (6.6-8.7)
[2020-03-21 07:52] LABS: C Reactive Protein 152.3 mg/L (0.0-4.9)
--- NOTE | 2020-03-21 08:22 | PM.PN ---
Subjective Subjective: Interval history: Patient is intubated and sedated. Her oxygen requirement worsened and she is now on 80% FiO2 with PEEP 10 to saturate in the low to mid 90s. Her episodes of fever are resolved. Her blood pressure has been on the low side. Her edema significantly improved this morning. CBC is currently pending. Blood cultures so far negative Medications: Reviewed: Yes Vitals/I&O/Wt Last Vital Signs Temp 99.4 F 03/21/20 04:00 Pulse 101 H 03/21/20 08:09 Resp 15 03/21/20 08:10 BP 89/53 03/21/20 06:30 Pulse Ox 94 03/21/20 08:09 03/20/20 03/21/20 03/21/20 22:59 06:59 14:59 Intake Total 566.590 / 1115.352 395 / 1510.352 Output Total 900 / 900 850 / 1750 500 / 500 Balance -333.410 / 215.352 -455 / -239.648 -500 / -500 Weight last 48 hrs Weight 80.62 kg Weight 80.6 kg Weight 79.634 kg Physical Exam Const: COMMON NORMALS: no acute distress Resp: COMMON NORMALS: normal respiratory effort and clear to auscultation bilaterally AUSCULTATION: clear to auscultation bilaterally OTHER: Coarse breath sounds throughout. Cardio: COMMON NORMALS: regular rate, regular rhythm and S2 normal heart sound present RATE: regular rate RHYTHM: regular rhythm HEART SOUNDS: S2 normal heart sound present OTHER: No lower extremity edema GI: COMMON NORMALS: Normal to inspection, nondistended, normoactive bowel sounds present, Soft to palpation and non-tender PALPATION: Yes Soft to palpation Neuro: COMMON NORMALS: no focal motor deficits Urinary Catheter Management^: Alcantara: Cath Placed During This Visit: yes Reason for Continuing Indwelling Catheter: Accurate Measurement of Urinary Output in Critically Ill Patients Urinary Catheter Date of Insertion: 02/27/20 Urinary Catheter Time of Insertion: 01:30 Data : 03/20/20 03:40 03/21/20 04:40 Micro: Microbiology 03/21/20 05:00 Blood Culture - Preliminary Blood SPECIMEN COLLECTED 03/21/20 04:40 Blood Culture - Preliminary Blood SPECIMEN COLLECTED 03/20/20 07:50 Blood Culture - Preliminary Blood SPECIMEN COLLECTED 03/20/20 07:15 Blood Culture - Preliminary Blood SPECIMEN COLLECTED A&P Assessment and plan (1) Acute hypoxemic respiratory failure due to COVID-19: Worsened hypoxia today, requiring 100% FiO2 support on BiPAP, IPAP 10. Interim ventilator dyssynchrony. Given 1 dose of Ativan. Persistent edema, bilateral crackles. She is receiving 60 mg IV Lasix. TPN held. Discussed with her mother. Goals of care CODE STATUS updated. Discussed with pulmonology. If does not improve may need to proceed to intubation which in itself may be rather risky, but may be her only option should she not improve or decline further. Decadron 6mg every 24 hours. Empiric antibiotic. Diflucan. Will check w pharmacy if we have caspofungin. Repeat blood culture, fungal culture. Urine culture. Once able to, remove CVC, send tip for culture. At the moment very poor peripheral access. Status: Acute (2) Septic shock: As above. Severe COVID-19. Empiric antibiotics for possible superimposed bacterial pulmonary infection. Candidal UTI. Additional assessment by CT abdomen pelvis due to abdominal pain shows improving colitis. Status: Acute (3) Thrombocytopenia: Will repeat LDH. Haptoglobin. Will ask hematology for additional peripheral smear review. Responded to PLT transfusion. Prophylactic Lovenox. Continue treatment of sepsis. Peripheral smear without schistocytes, however, with some noted dysmorphic metamyelocytes and myelocytes. Suspect likely secondary to infection. Possibly folic acid deficiency. As recommended by pathology flow cytometry is ordered to exclude myeloid disorder. HIT antibody negative. Suspected underlying liver fibrosis or possibly cirrhosis. No splenomegaly. Discussed with her mother. Status: Acute (4) Acute respiratory distress syndrome (ARDS) due to 2019 novel coronavirus: As above. Status: Acute (5) Anemia: Responded to RBC transfusion. Repeat tests for possible hemolysis. Repeat peripheral smear. D/w pulmonology additional DD. Does not appear typical for [facility]. Will request Jahaira-2R. Checking vitamin K level. Copper level. Normal B12. Folic acid deficiency. Folic acid added to TPN. Would benefit from folic acid replacement once able to administer enteric feeds. Status: Acute (6) PAT (acute kidney injury): Improved. Status: Acute (7) Hepatic encephalopathy: Ammonia is better. Suspected urea cycle disorder related to bariatric surgery. Lactulose enemas as tolerating. Given quite severe swings in oxygenation previously, with reported desaturation very rapidly when at times she would pull off BiPAP, despite almost immediate replacement anoxic brain injury is possible. Difficult to tell at this time due to still ongoing acute processes. She is not able to be assessed by MRI. This may need to be considered if there is no improvement in mental status despite improvement in other areas. Status: Acute (8) Protein-calorie malnutrition: TPN Status: Acute Qualifiers: Protein-calorie malnutrition severity: unspecified severity Qualified Code(s): E46 - Unspecified protein-calorie malnutrition (9) Hypernatremia: Better. Status: Acute (10) Metabolic acidosis: Status: Acute (11) Hypoglycemia: Monitor while holding tpn. Status: Acute (12) DIC (disseminated intravascular coagulation): Appears stabilized. Status: Acute (13) Opioid dependence: Status: Acute Qualifiers: Substance use status: uncomplicated Qualified Code(s): F11.20 - Opioid dependence, uncomplicated (14) Gastroparesis: Poor po intake resulting in malnutrition, NPO for now, high risk for aspiration Hx partial gastric resection. Status: Acute (15) Hypokalemia: Additional replacement. Status: Acute Additional A&P Information Recent echo EF 60%, no RWMA, gr 1 diastolic dysfunction from 04/2019 Hypocalcemia: Resolved Transmainitis, LFTs elevated but improved over early Nov. This could be related to cholestasis. History of partial gastrectomy: Would benefit from vitamin D supplementation. Check vitamin A, E, K, copper. PLAN: Continue Levaquin and Zosyn. We will add daptomycin to cover MRSA Will proceed with CTA of the chest. Patient may require WBC tagged scan if not getting better. Awaiting CBC. Patient may require blood transfusion We will give 1 g magnesium sulfate. Attestations Medical Necessity Statement*: Patient with respiratory failure requires close ICU monitoring and treatment Time Spent in Patient Care: Greater than 35 minutes 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 Federal Mediation Commissioner for [facility] Fwd Diagnoses Acute hypoxemic respiratory failure due to COVID-19 U07.1; J96.01 Septic shock A41.9; R65.21 Thrombocytopenia D69.6 Acute respiratory distress syndrome (ARDS) due to 2019 novel coronavirus U07.1; J80 Anemia D64.9 PAT (acute kidney injury) N17.9 Hepatic encephalopathy K72.90 Protein-calorie malnutrition E46 Protein-calorie malnutrition severity: unspecified severity Hypernatremia E87.0 Metabolic acidosis E87.2 Hypoglycemia E16.2 DIC (disseminated intravascular coagulation) D65 Opioid dependence F11.20 Substance use status: uncomplicated Gastroparesis K31.84 Hypokalemia E87.6
[2020-03-21] MEDS: metoprolol tartrate 50 mg Tablet PO ×2 (08:40→17:32)
[2020-03-21] MEDS: citalopram 20 mg Tablet PO (08:40)
[2020-03-21] MEDS: famotidine 20 mg/2 mL INJ IVP ×2 (08:40→21:51)
[2020-03-21] MEDS: levofloxacin-dextrose 5 % 750 MG/150 ML PREMIX 100 MG IV (08:40)
[2020-03-21 08:55] LABS: INR 1.34 (0.8-1.2)
[2020-03-21 08:56] LABS: Fibrinogen 382 mg/dL (174-498); Partial Thromboplastin Time 36.4 SECONDS (23.9-36.7); Slide Review Slide Review Perform
[2020-03-21 09:08] LABS: D Dimer 9.49 ug/mIFEU (0-0.59)
[2020-03-21] MEDS: DAPTOmycin 500 MG in sodium chloride 0.9% (100 ml) 100 ML 100 MG IV (09:42)
--- NOTE | 2020-03-21 10:03 | PC.NURSE ---
Spoke to Dr. Nolan. Discussed lab results, Hgb and Plt. Orders for 2 units PRBC. Reorted that PT only has double lumen PICC line at this time, multiple attempts to start a PIV have been made, ER has been called for ultrasound insertion. Will prioritize IV infusions until more lines are available, MD aponte. Discussed plans for CTA. Orders to hold at this time until PT is stable.
[2020-03-21 10:25] LABS: Lactate Dehydrogenase 323 U/L (135-214)
[2020-03-21 10:49] LABS: Ferritin 1679 ng/mL (15-150)
[2020-03-21 11:31] LABS: Glucose Point of Care 111 mg/dL (70-110)
[2020-03-21 16:13] LABS: Glucose Point of Care 98 mg/dL (70-110)
[2020-03-21 20:16] LABS: Glucose Point of Care 93 mg/dL (70-110)
[2020-03-22] VITALS (61 sets, daily range): BP systolic 86–138; BP diastolic 49–97; PULSE 92–117; RESP 13–28; TEMP 37.9–38.9; O2SAT 81–97
[2020-03-22] MEDS: ipratropium-albuterol 3 mL Neb INHALATION ×7 (00:10→23:45)
[2020-03-22] MEDS: acetaminophen 325 mg Tablet 650 MG PO ×3 (01:00→16:30)
[2020-03-22 01:01] LABS: Glucose Point of Care 108 mg/dL (70-110)
[2020-03-22] MEDS: propofol 1,000 MG/100 ML INJ 30.1 MG IV ×2 (02:26→04:54)
[2020-03-22 04:32] LABS: Glucose Point of Care 108 mg/dL (70-110)
[2020-03-22 04:33] LABS: Basophils % 0.6 %; Eosinophils # 0.7 10^3/uL (0.0-0.8); Eosinophils % 19.9 %; Hematocrit 29.7 % (37.0-47.0); Hemoglobin 9.3 g/dL (11.5-15.3); Lymphocytes # 0.5 10^3/uL (0.8-4.8); Lymphocytes % 13.3 %; Mean Corpuscular HGB Conc 31.3 g/dL (30.0-36.0); Mean Corpuscular Hemoglobin 29.4 pg (28.0-34.0); Mean Platelet Volume 13.9 fL (7.4-10.4); Monocytes # 0.1 10^3/uL (0.2-0.9); Monocytes % 3.3 %; Neutrophils # 2.24 10^3/uL (1.8-7.7); Neutrophils % 61.8 %; Nucleated Red Blood Cells % 0.6 %; Platelet Count 52 10^3/cmm (130-400); Red Blood Count 3.16 10^6/uL (4.1-5.3); Red Cell Distribution Width 18.5 % (12.1-15.1); White Blood Count 3.6 10^3/uL (4.0-10.0)
[2020-03-22 04:51] LABS: Alanine Aminotransferase 14 U/L (0-33); Alkaline Phosphatase 77 IU/L (35-105); Anion Gap 11.7 (5-19); Aspartate Amino Transferase 17 U/L (0-32); Blood Urea Nitrogen 15 mg/dL (6-20); Calcium 8.4 mg/dL (8.5-10.5); Carbon Dioxide 30 mmol/L (22-29); Chloride 101 mmol/L (98-107); Globulin 2.4 g/dL (1.3-4.6); Glomerular Filtration Rate 171.8 mL/min (90-130); Glucose 104 mg/dL (65-115); Magnesium 1.7 mg/dL (1.7-2.3); Osmolality Calculated 289 mOsm/kg (285-295); Potassium 3.7 mmol/L (3.5-5.1); Sodium 139 mmol/L (136-145); Total Bilirubin 1.3 mg/dL (0.15-1.2); Total Protein 5.4 g/dL (6.6-8.7)
[2020-03-22] MEDS: levofloxacin-dextrose 5 % 750 MG/150 ML PREMIX 100 MG IV (06:25)
[2020-03-22] MEDS: piperacillin-tazobactam 3.375 GM in sodium chloride 0.9% (plus) 50 ML IV ×3 (06:26→21:09)
--- NOTE | 2020-03-22 07:15 | PC.NURSE ---
SHIFT SUMMARY Patients FiO2 turned up to 100% throughout the night. Physician order to increase propofol up to 75 mcg/kg/hour as long as MAP remains above 65. No issues with BP this shift. Patients oxygenation in the mid to high 80s and decreases to 70s with turns. Patients backside constantly weeping, bilateral hands weeping. Propofol currently at 65 mcg/kg/hour, fentanyl at 100, Jevity 1.2 at 45 mL/hour. 250 mL urine output last night. Patient would open eyes spontaneously, but extremely weak. No insulin throughout night. PRN tylenol given once at 0100.
[2020-03-22 08:15] LABS: Glucose Point of Care 114 mg/dL (70-110)
--- NOTE | 2020-03-22 08:16 | PC.NURSE ---
0800 Blood glucose check was 114
[2020-03-22] MEDS: metoprolol tartrate 50 mg Tablet PO ×2 (08:48→17:41)
[2020-03-22] MEDS: citalopram 20 mg Tablet PO (08:48)
[2020-03-22] MEDS: famotidine 20 mg/2 mL INJ IVP ×2 (08:48→20:05)
[2020-03-22] MEDS: hydroCHLOROthiazide 25 mg Tablet 50 MG PO ×2 (08:48→17:41)
[2020-03-22] MEDS: propofol 1,000 MG/100 ML INJ 32.6 MG IV (08:48)
[2020-03-22] MEDS: DAPTOmycin 500 MG in sodium chloride 0.9% (100 ml) 100 ML 100 MG IV (08:49)
--- NOTE | 2020-03-22 11:22 | USR_ITS ---
PROCEDURE INFORMATION: Exam: US Duplex Lower Extremity Veins, Bilateral Exam date and time: 03/22/2020 3:37 PM Age: 44 years old Clinical indication: Edema, localized; Lower extremity, bilateral; Additional info: Blood flow/dvt TECHNIQUE: Imaging protocol: Real-time duplex ultrasound of the extremities with 2-D burt scale, color Doppler flow and spectral waveform analysis with image documentation. Complete exam focused on the bilateral lower extremity veins. COMPARISON: No relevant prior studies available. FINDINGS: Right deep veins: Unremarkable. The common femoral, femoral, proximal profunda femoral and popliteal veins are patent without thrombus. Normal Doppler waveforms. Normal compressibility and/or augmentation response. Right superficial veins: Saphenofemoral junction is patent without thrombus. Left deep veins: Unremarkable. The common femoral, femoral, proximal profunda femoral and popliteal veins are patent without thrombus. Normal Doppler waveforms. Normal compressibility and/or augmentation response. Left superficial veins: Saphenofemoral junction is patent without thrombus. Soft tissues: There is diffuse bilateral subcutaneous edema. US/CV venous duplex [facility] [id number] IMPRESSION: No evidence of deep vein thrombosis.
--- NOTE | 2020-03-22 12:39 | PM.PN ---
Subjective Subjective: Interval history: Patient is intubated and sedated. Her blood pressure is soft 90/50. We are trying to bring down propofol dose and we will use Versed if needed for sedation. She had approximately 400 mild urinary output during nighttime but nothing this morning so far. Her temperature is 100.4 and patient was started on daptomycin yesterday. WBC and platelets slightly improved. Hemoglobin responded well to 2 units of transfusion. It appears that her rectal tube is showing more formed stool and we will go ahead and DC it. She appears more edematous this morning. Her albumin is up to 3.0. Her FiO2 had to be increased to 100% to saturate in the high 80s. I had discussion with patient's mother yesterday regarding her poor prognosis and high chance that patient will not make it through this hospitalization. Mother understands and will consider comfort measures if patient is not improving. We were unable to perform CTA of chest because of significant desaturation with minimal movement. Blood cultures from shows coagulase-negative staph, 2 out of 4 bottles from the same set. Repeat cultures are negative so far. She has very minimal ET tube secretions. I had discussion with Dr. Berry yesterday regarding patient's pancytopenia which appears to be related to underlying infection and possibly medication. No further evaluation with bone marrow biopsy is currently recommended. Dr. Berry recommends to initiate Neupogen if patient becomes neutropenic. Medications: Reviewed: Yes Vitals/I&O/Wt Last Vital Signs Temp 100.4 F H 03/22/20 08:00 Pulse 107 H 03/22/20 11:29 Resp 15 03/22/20 11:29 BP 90/50 03/22/20 10:25 Pulse Ox 94 03/22/20 11:29 03/21/20 03/22/20 03/22/20 22:59 06:59 14:59 Intake Total 707.95 / 1637.213 508.224 / 2145.437 1117.76 / 1117.76 Output Total 550 / 1050 250 / 1300 Balance 157.95 / 587.213 258.224 / 244.946 0757.76 / 1117.76 Weight last 48 hrs Weight 81.737 kg Weight 80.62 kg Physical Exam Const: COMMON NORMALS: no acute distress Resp: COMMON NORMALS: normal respiratory effort and clear to auscultation bilaterally AUSCULTATION: clear to auscultation bilaterally OTHER: Coarse breath sounds throughout. Cardio: COMMON NORMALS: regular rate, regular rhythm and S2 normal heart sound present RATE: regular rate RHYTHM: regular rhythm HEART SOUNDS: S2 normal heart sound present OTHER: No lower extremity edema GI: COMMON NORMALS: Normal to inspection, nondistended, normoactive bowel sounds present, Soft to palpation and non-tender PALPATION: Yes Soft to palpation OTHER: Mildly tender at epigastric area. Neuro: COMMON NORMALS: no focal motor deficits Urinary Catheter Management^: [place]: Cath Placed During This Visit: yes Reason for Continuing Indwelling Catheter: Accurate Measurement of Urinary Output in Critically Ill Patients Urinary Catheter Date of Insertion: 02/27/20 Urinary Catheter Time of Insertion: 01:30 Data : 03/22/20 03:20 03/22/20 03:20 Micro: Microbiology 03/20/20 07:50 Blood Culture - Preliminary Blood Coagulase negativ staphylococc 03/21/20 05:00 Blood Culture - Preliminary Blood NEGATIVE TO DATE 03/21/20 04:40 Blood Culture - Preliminary Blood NEGATIVE TO DATE 03/16/20 11:40 Blood Culture - Final Blood NO GROWTH AFTER 5 DAYS 03/16/20 12:00 Blood Culture - Final Blood NO GROWTH AFTER 5 DAYS 03/20/20 07:15 Blood Culture - Preliminary Blood NEGATIVE TO DATE A&P Assessment and plan (1) Acute hypoxemic respiratory failure due to COVID-19: Worsened hypoxia today, requiring 100% FiO2 support on BiPAP, IPAP 10. Interim ventilator dyssynchrony. Given 1 dose of Ativan. Persistent edema, bilateral crackles. She is receiving 60 mg IV Lasix. TPN held. Discussed with her mother. Goals of care CODE STATUS updated. Discussed with pulmonology. If does not improve may need to proceed to intubation which in itself may be rather risky, but may be her only option should she not improve or decline further. Decadron 6mg every 24 hours. Empiric antibiotic. Diflucan. Will check w pharmacy if we have caspofungin. Repeat blood culture, fungal culture. Urine culture. Once able to, remove CVC, send tip for culture. At the moment very poor peripheral access. Status: Acute (2) Septic shock: As above. Severe COVID-19. Empiric antibiotics for possible superimposed bacterial pulmonary infection. Candidal UTI. Additional assessment by CT abdomen pelvis due to abdominal pain shows improving colitis. Status: Acute (3) Thrombocytopenia: Will repeat LDH. Haptoglobin. Will ask hematology for additional peripheral smear review. Responded to PLT transfusion. Prophylactic Lovenox. Continue treatment of sepsis. Peripheral smear without schistocytes, however, with some noted dysmorphic metamyelocytes and myelocytes. Suspect likely secondary to infection. Possibly folic acid deficiency. As recommended by pathology flow cytometry is ordered to exclude myeloid disorder. HIT antibody negative. Suspected underlying liver fibrosis or possibly cirrhosis. No splenomegaly. Discussed with her mother. Status: Acute (4) Acute respiratory distress syndrome (ARDS) due to 2019 novel coronavirus: As above. Status: Acute (5) Anemia: Responded to RBC transfusion. Repeat tests for possible hemolysis. Repeat peripheral smear. D/w pulmonology additional DD. Does not appear typical for [facility]. Will request Jahaira-2R. Checking vitamin K level. Copper level. Normal B12. Folic acid deficiency. Folic acid added to TPN. Would benefit from folic acid replacement once able to administer enteric feeds. Status: Acute (6) PAT (acute kidney injury): Improved. Status: Acute (7) Hepatic encephalopathy: Ammonia is better. Suspected urea cycle disorder related to bariatric surgery. Lactulose enemas as tolerating. Given quite severe swings in oxygenation previously, with reported desaturation very rapidly when at times she would pull off BiPAP, despite almost immediate replacement anoxic brain injury is possible. Difficult to tell at this time due to still ongoing acute processes. She is not able to be assessed by MRI. This may need to be considered if there is no improvement in mental status despite improvement in other areas. Status: Acute (8) Protein-calorie malnutrition: TPN Status: Acute Qualifiers: Protein-calorie malnutrition severity: unspecified severity Qualified Code(s): E46 - Unspecified protein-calorie malnutrition (9) Hypernatremia: Better. Status: Acute (10) Metabolic acidosis: Status: Acute (11) Hypoglycemia: Monitor while holding tpn. Status: Acute (12) DIC (disseminated intravascular coagulation): Appears stabilized. Status: Acute (13) Opioid dependence: Status: Acute Qualifiers: Substance use status: uncomplicated Qualified Code(s): F11.20 - Opioid dependence, uncomplicated (14) Gastroparesis: Poor po intake resulting in malnutrition, NPO for now, high risk for aspiration Hx partial gastric resection. Status: Acute (15) Hypokalemia: Additional replacement. Status: Acute Additional A&P Information Recent echo EF 60%, no RWMA, gr 1 diastolic dysfunction from 04/2019 Hypocalcemia: Resolved Transmainitis, LFTs elevated but improved over early Nov. This could be related to cholestasis. History of partial gastrectomy: Would benefit from vitamin D supplementation. Check vitamin A, E, K, copper. PLAN: Continue daptomycin, Levaquin and Zosyn. If blood pressure does not improve with decrease in propofol dose we will start on Levophed and make sure maps remain more than 65. Will proceed with CTA of the chest when we can obtain. Patient may require WBC tagged scan if not getting better. We will start patient on Lasix and potassium twice daily and hopefully this will make to improve oxygen demand. Continue albumin for now. Given patient's pancytopenia it is very risky to initiate therapeutic anticoagulation and this was discussed with patient's mother. We will repeat bilateral lower extremity venous ultrasound as her lower extremities much more swollen this morning. 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 [facility] Fwd Diagnoses Acute hypoxemic respiratory failure due to COVID-19 U07.1; J96.01 Septic shock A41.9; R65.21 Thrombocytopenia D69.6 Acute respiratory distress syndrome (ARDS) due to 2019 novel coronavirus U07.1; J80 Anemia D64.9 PAT (acute kidney injury) N17.9 Hepatic encephalopathy K72.90 Protein-calorie malnutrition E46 Protein-calorie malnutrition severity: unspecified severity Hypernatremia E87.0 Metabolic acidosis E87.2 Hypoglycemia E16.2 DIC (disseminated intravascular coagulation) D65 Opioid dependence F11.20 Substance use status: uncomplicated Gastroparesis K31.84 Hypokalemia E87.6
[2020-03-22 13:44] LABS: Glucose Point of Care 113 mg/dL (70-110)
[2020-03-22 14:03] LABS: ABG PCO2 56.3 mmHg (35-45); ABG PH Result 7.35 (7.35-7.45); Alveolar-Arterial Oxygen Gradi 77.4 mmHg (5-10); Arterial Blood Gas Hematocrit 30.9 % (37-47); Base Excess ABG 4.1 mmol/L (-2.0-2.0); Blood Gas Allen Test Pos; Blood Gas Sample Site Radial, right; Blood Gas Sample Type Arterial; Carboxyhemoglobin 2.7 %THgb (0.4-20.1); HCO3 ABG 30.8 mmol/L (22-26); HGB O2 Sat 80.5 % (95-100); Ionized Calcium Level - ABG 1.2 mmol/L (1.1-1.4); Methemoglobin 0.8 % (0.4-1.5); Oxygen Device VENT; Oxygen Saturation ABG 83.5; PO2 ABG 49.1 mmHg (80.0-100.0); Potassium Level - ABG 3.7 mmol/L (3.5-5.0); Total Hemoglobin 10.1 g/dL (12-16)
[2020-03-22] MEDS: FUROsemide 10 mg/mL SDV 4mL 40 MG IVP (14:21)
[2020-03-22] MEDS: propofol 1,000 MG/100 ML INJ 25.1 MG IV ×2 (14:22→23:16)
[2020-03-22] MEDS: midazolam 1 mg/mL INJ 2 mL 2 MG IVP ×2 (16:30→20:38)
[2020-03-22 16:43] LABS: Glucose Point of Care 115 mg/dL (70-110)
[2020-03-22] MEDS: potassium chloride oral liq 20 mEq/15 mL UDC PO (17:41)
[2020-03-22] MEDS: propofol 1,000 MG/100 ML INJ 12.5 MG IV (18:35)
[2020-03-22 19:59] LABS: Glucose Point of Care 107 mg/dL (70-110)
[2020-03-22] MEDS: HYDROmorphone 1 mg/mL INJ 1 mL 0.5 MG IVP ×3 (20:10→23:57)
--- NOTE | 2020-03-22 21:25 | PC.NURSE ---
Propofol Max Increase Dr. García stated Propofol could be maxed out at 80.
[2020-03-22 23:52] LABS: Glucose Point of Care 107 mg/dL (70-110)
[2020-03-23] VITALS (41 sets, daily range): BP systolic 97–156; BP diastolic 54–93; PULSE 88–119; RESP 13–35; TEMP 37.1–37.2; O2SAT 77–99
[2020-03-23] MEDS: midazolam 1 mg/mL INJ 2 mL 2 MG IVP ×2 (00:12→03:51)
[2020-03-23] MEDS: FUROsemide 10 mg/mL SDV 4mL 40 MG IVP ×2 (00:49→14:40)
[2020-03-23] MEDS: HYDROmorphone 1 mg/mL INJ 1 mL 0.5 MG IVP (01:55)
[2020-03-23] MEDS: LORazepam 2 mg/mL INJ 1 mL IVP (02:08)
[2020-03-23] MEDS: propofol 1,000 MG/100 ML INJ 40.1 MG IV (02:30)
[2020-03-23 03:09] LABS: Glucose Point of Care 123 mg/dL (70-110)
[2020-03-23 03:30] LABS: ABG PCO2 47.9 mmHg (35-45); ABG PH Result 7.41 (7.35-7.45); Arterial Blood Gas Hematocrit 30.2 % (37-47); Base Excess ABG 5.3 mmol/L (-2.0-2.0); Blood Gas Operator Identificat HARKR; Blood Gas Sample Site Brachial, right; Blood Gas Sample Type Arterial; HCO3 ABG 30.6 mmol/L (22-26); Oxygen Device VENT; PO2 ABG 74.5 mmHg (80.0-100.0)
[2020-03-23] MEDS: HYDROmorphone 1 mg/mL INJ 1 mL 2 MG IVP ×3 (03:49→07:59)
[2020-03-23] MEDS: ipratropium-albuterol 3 mL Neb INHALATION ×3 (04:00→11:12)
[2020-03-23 04:27] LABS: Basophils % 0.5 %; Eosinophils % 23.3 %; Hemoglobin 9.4 g/dL (11.5-15.3); Lymphocytes # 0.3 10^3/uL (0.8-4.8); Mean Corpuscular HGB Conc 31.3 g/dL (30.0-36.0); Mean Corpuscular Hemoglobin 29.8 pg (28.0-34.0); Mean Corpuscular Volume 95.2 fL (81-99); Monocytes # 0.2 10^3/uL (0.2-0.9); Monocytes % 3.6 %; Neutrophils # 2.61 10^3/uL (1.8-7.7); Neutrophils % 63.4 %; Nucleated Red Blood Cells % 0 %; Platelet Count 73 10^3/cmm (130-400); Red Blood Count 3.15 10^6/uL (4.1-5.3); Red Cell Distribution Width 18.4 % (12.1-15.1); White Blood Count 4.1 10^3/uL (4.0-10.0)
[2020-03-23 04:44] LABS: Ammonia 32 umol/L (11-51)
[2020-03-23 04:49] LABS: Alanine Aminotransferase 13 U/L (0-33); Alkaline Phosphatase 80 IU/L (35-105); Aspartate Amino Transferase 17 U/L (0-32); Blood Urea Nitrogen 18 mg/dL (6-20); Calcium 8.4 mg/dL (8.5-10.5); Carbon Dioxide 28 mmol/L (22-29); Chloride 99 mmol/L (98-107); Globulin 2.5 g/dL (1.3-4.6); Glomerular Filtration Rate 107.6 mL/min (90-130); Glucose 106 mg/dL (65-115); Magnesium 1.6 mg/dL (1.7-2.3); Osmolality Calculated 290 mOsm/kg (285-295); Sodium 139 mmol/L (136-145); Total Bilirubin 1.4 mg/dL (0.15-1.2); Total Protein 5.5 g/dL (6.6-8.7)
[2020-03-23 04:52] LABS: Anion Gap 15.5 (5-19); Potassium 3.5 mmol/L (3.5-5.1)
[2020-03-23] MEDS: piperacillin-tazobactam 3.375 GM in sodium chloride 0.9% (plus) 50 ML IV ×2 (05:00→14:37)
[2020-03-23 05:07] LABS: Slide Review Slide Review Perform
[2020-03-23] MEDS: levofloxacin-dextrose 5 % 750 MG/150 ML PREMIX 100 MG IV (06:10)
[2020-03-23] MEDS: propofol 1,000 MG/100 ML INJ 17.6 MG IV ×2 (06:27→12:31)
[2020-03-23] MEDS: famotidine 20 mg/2 mL INJ IVP (08:50)
[2020-03-23] MEDS: hydroCHLOROthiazide 25 mg Tablet 50 MG PO (08:51)
[2020-03-23] MEDS: metoprolol tartrate 50 mg Tablet PO (08:51)
[2020-03-23] MEDS: potassium chloride oral liq 20 mEq/15 mL UDC PO (08:51)
[2020-03-23] MEDS: citalopram 20 mg Tablet PO (08:51)
[2020-03-23] MEDS: DAPTOmycin 500 MG in sodium chloride 0.9% (100 ml) 100 ML 100 MG IV (10:12)
[2020-03-23 11:29] LABS: Glucose Point of Care 94 mg/dL (70-110)
[2020-03-23 13:00] LABS: ABG PCO2 49.4 mmHg (35-45); ABG PH Result 7.39 (7.35-7.45); Arterial Blood Gas Hematocrit 27.6 % (37-47); Base Excess ABG 4.6 mmol/L (-2.0-2.0); Blood Gas Allen Test Pos; Blood Gas Operator Identificat MONRO; Blood Gas Sample Site Radial, left; Blood Gas Sample Type Arterial; HCO3 ABG 30.2 mmol/L (22-26); Oxygen Device VENT; PO2 ABG 52.6 mmHg (80.0-100.0)
--- NOTE | 2020-03-23 17:30 | P.DES_ITS ---
Discharge Providers DDS Date of Admission: 02/27/20 00:57 Date Summary Completed: 03/23/20 Attending Provider at Admission: Priya Ruiz MD Time of : 17:30 Attending Provider at Discharge: Ford Mcelroy Primary Care Provider: Rosi Shell NP DS Diagnoses Hospital Diagnoses (1) Acute hypoxemic respiratory failure due to COVID-19: (2) Septic shock: (3) Thrombocytopenia: (4) Acute respiratory distress syndrome (ARDS) due to 2019 novel coronavirus: (5) Anemia: (6) PAT (acute kidney injury): (7) Hepatic encephalopathy: (8) Protein-calorie malnutrition: Qualifiers: Protein-calorie malnutrition severity: unspecified severity Qualified Code(s): E46 - Unspecified protein-calorie malnutrition (9) Hypernatremia: (10) Metabolic acidosis: (11) Hypoglycemia: (12) DIC (disseminated intravascular coagulation): (13) Opioid dependence: Qualifiers: Substance use status: uncomplicated Qualified Code(s): F11.20 - Opioid dependence, uncomplicated (14) Gastroparesis: (15) Hypokalemia: Reason for Visit Reason for Visit: RESPIRATORY DISTRESS Summary Date and Time of Date of : 03/23/20 Time of : 17:30 Summary Summary: 44 year old female with past history of anastomotic ulcer status post gastric bypass, posttraumatic stress disorder, general anxiety, HTN, major depressive disorder, history of chronic pancreatitis, gastroparesis on erythromycin, neph rolithiasis, protein calorie malnutriion due to poor po intake being considered for PEG as outpatient, recent admission in early February for hemetemesis (EGD without bleeding source) and acute liver failure which prompted transfer to [facility]. She returned today to the ER with c/o shortness of breath and hypoxia. Upon EMS presentation she was placed on 02 at 15lpm, then quickly escalated to Hi flow in the ER o now Bipap. Covid antigen +. CXR with B/L diffuse infiltrates c/f ARDS, elevated D dimer at 2.33, ABG wih 7.39, 52.5, 35.3, 21.2, 84.4, PAT with cr 1.4, lactate 4.1. SBP upon admission at 60 systolic, currently on levophed after poor response to 2L IVF bolus. Central line placed in the ER into the right IJ, initially noted to be in IVC, then repositioined to be over righ atrium. CT CAP taken and pending, unable to get contrast due to lack of peripheral iv access. She is currently very lethargic, intermittently agitated, grossly ill appearing. Upon admission to the hospital patient was noted to have rapid COVID-19 antigen positive. Unfortunately patient progressively declined. She required intubation and mechanical ventilation. Continued to have vent dependent resp iratory failure. At the time I assumed care of this patient she was requiring 100% FiO2. Hospitalization care plan was discussed with patients mother who was DPOA. at family request patient was transition to DNR comfort. She was terminally weaned. Mother was at bedside. Including her son as well. Patient at 5:30 p.m. 03/23/2020. Additional Data Confirmation of as documented by pronouncing clinician: no pulse and no heart sounds Family: at bedside Additional persons at bedside: nursing staff Attending/PCP notified?: Attending notified Was code activated?: No Autopsy requested?: No Advance directives?: Yes Hospice patient?: Yes Discharge Plan Discharge Patient Disposition: At Medical Facility Condition: Prescriptions: No Action erythromycin 250 mg tablet 250 mg PO BID Qty: 60 RF: 3 trazodone 150 mg tablet 150 mg PO BEDTIME PRN (Reason: sleep) Qty: 90 RF: 2 lorazepam [Ativan] 1 mg tablet 1 mg PO TID PRN (Reason: anxiety) Qty: 90 RF: 1 Dexilant 60 mg capsule,biphase delayed releas 60 mg PO BID Qty: 60 RF: 5 sucralfate 1 gram Tablet 1 g PO TID RF: 0 acetaminophen [Tylenol Extra Strength] 500 mg Tablet 500 - 1,000 mg PO Q6H PRN (Reason: Pain) RF: 0 promethazine 25 mg tablet See Rx Instructions .ROUTE .COMPLEX RF: 0 clonazepam 1 mg tablet 1 mg PO TID RF: 0 Celexa 20 mg tablet 20 mg PO DAILY RF: 0 multivitamin [Multiple Vitamins] Tablet 1 tab PO DAILY RF: 0 metoprolol tartrate 25 mg Tablet 25 mg PO BID RF: 0 tramadol [Ultram] 50 mg Tablet 50 mg PO Q8H PRN (Reason: Pain) Qty: 14 RF: 0 dicyclomine 20 mg tablet 20 mg PO QID PRN (Reason: stomach pain) RF: 0 potassium chloride 10 mEq capsule, extended release 10 meq PO BID Qty: 30 RF: 0 Probable Cause of Probable cause of : Cardiac arrest DS Attestations Time Spent in /Discharge Care*: greater than 30 min Quality - AMI: AMI present?: No Quality - Stroke: CVA present?: No Quality - VTE: VTE present?: No Deep Vein Thrombosis/Pulmonary Embolism Present on Admission: No 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 [facility] Fwd Diagnoses Acute hypoxemic respiratory failure due to COVID-19 U07.1; J96.01 Septic shock A41.9; R65.21 Thrombocytopenia D69.6 Acute respiratory distress syndrome (ARDS) due to 2019 novel coronavirus U07.1; J80 Anemia D64.9 PAT (acute kidney injury) N17.9 Hepatic encephalopathy K72.90 Protein-calorie malnutrition E46 Protein-calorie malnutrition severity: unspecified severity Hypernatremia E87.0 Metabolic acidosis E87.2 Hypoglycemia E16.2 DIC (disseminated intravascular coagulation) D65 Opioid dependence F11.20 Substance use status: uncomplicated Gastroparesis K31.84 Hypokalemia E87.6
--- NOTE | 2020-03-23 18:00 | PC.NURSE ---
Patient was transitioned to comfort care by mother and son. Patient breathing tube was removed and sedation turned off at 1700. TIme of was 1730. MTS notified, not a candidate for donation. home will be [facility] in [place], home notified, will filler picker from room.
--- NOTE | 2020-03-23 18:20 | PC.NURSE ---
Fentanyl gtt waste: 35 ml wasted with Taya Grant RN.
--- NOTE | 2020-03-23 18:22 | PC.NURSE ---
30ml 0f propofol wasted and 35ml of fentanyl wasted. Verified by CLAUDIA Rubin.
--- NOTE | 2020-03-23 20:12 | PC.NURSE ---
BODY TRANSFER Patients body picked up by home. Mother, Christina notified around 1944. Paperwork sent with home.
== END 2020-03-23 17:30 | disposition expired | DRG 870 ==
LOC: ER 17:32 → ICU 02-27 00:58
PROVIDERS: Internal Medicine; Internal Medicine Medical Oncology; Internal Medicine Pulmonary Disease; Student in an Organized Health Care Education/Training Program; Admitting Provider Student in an Organized Health Care Education/Training Program; Emergency Provider Family Medicine; PCP Nurse Practitioner Family; Visit Provider Hospitalist
DX: A41.9 Sepsis, unspecified organism (principal); U07.1 COVID-19; J12.89 Other viral pneumonia; R65.21 Severe sepsis with septic shock; J96.02 Acute respiratory failure with hypercapnia; J96.01 Acute respiratory failure with hypoxia; N17.0 Acute kidney failure with tubular necrosis; D65 Disseminated intravascular coagulation [defibrination syndrome]; F33.9 Major depressive disorder, recurrent, unspecified; K86.1 Other chronic pancreatitis; E46 Unspecified protein-calorie malnutrition; F11.20 Opioid dependence, uncomplicated; E87.2 Acidosis; E87.1 Hypo-osmolality and hyponatremia; F05 Delirium due to known physiological condition; B37.49 Other urogenital candidiasis; G93.1 Anoxic brain damage, not elsewhere classified; Z16.39 Resistance to other specified antimicrobial drug; D61.818 Other pancytopenia; Z98.84 Bariatric surgery status; F43.12 Post-traumatic stress disorder, chronic; F41.1 Generalized anxiety disorder; I10 Essential (primary) hypertension; K31.84 Gastroparesis; Z68.30 Body mass index [BMI] 30.0-30.9, adult; Z87.891 Personal history of nicotine dependence; D70.9 Neutropenia, unspecified; D64.9 Anemia, unspecified; E16.2 Hypoglycemia, unspecified; I95.9 Hypotension, unspecified; E83.51 Hypocalcemia; E86.0 Dehydration; K72.90 Hepatic failure, unspecified without coma; K74.60 Unspecified cirrhosis of liver; E53.8 Deficiency of other specified B group vitamins; B96.5 Pseudomonas (aeruginosa) (mallei) (pseudomallei) as the cause of diseases classified elsewhere; R19.7 Diarrhea, unspecified; Z51.5 Encounter for palliative care
CPT/HCPCS: 12345; 31500; 36415; 36416; 36430; 36556; 36569; 36592; 36600; 51702; 71045; 71250; 74176; 76700; 76882; 80048; 80051; 80053; 80202; 80500; 82140; 82247; 82248; 82274; 82306; 82330; 82525; 82550; 82607; 82728; 82746; 82803; 82805; 82962; 83010; 83540; 83550; 83605; 83615; 83690; 83735; 83880; 84100; 84145; 84238; 84295; 84443; 84446; 84478; 84484; 84590; 84597; 85007; 85018; 85025; 85027; 85049; 85362; 85378; 85384; 85610; 85651; 85730; 86022; 86140; 86403; 86850; 86900; 86920; 86927; 87040; 87070; 87075; 87077; 87086; 87106; 87186; 87205; 87426; 87449; 87493; 87641; 87804; 88184; 88185; 93005; 93308; 93970; 94002; 94003; 94640; 94660; 94664; 94669; 94799; 96372; 96375; 97110; 97161; 97167; 99283; C9113; J0131; J0330; J0360; J0456; J0637; J0743; J0878; J1100; J1170; J1450; J1610; J1630; J1650; J1756; J1815; J1940; J1956; J2060; J2250; J2543; J2704; J2930; J3010; J3370; J3475; J3480; J3490; J7030; J7040; J7050; J7626; P9016; P9017; P9035; P9047; P9055; Q3014